=== PATIENT | female | born 1945 | race Two or more races ===

== ENCOUNTER → 2022-08-17 11:12 | Outpatient (BNVA) | payer OTHER, SELFPAY | PROVIDERS: PCP Student in an Organized Health Care Education/Training Program; Visit Provider Nurse Practitioner Family | DX: H91.90 Unspecified hearing loss, unspecified ear (principal); H93.19 Tinnitus, unspecified ear; R51.9 Headache, unspecified; Z86.79 Personal history of other diseases of the circulatory system | CPT/HCPCS: 99212 ==

== ENCOUNTER 2022-08-19 09:29 | Outpatient (REF) | payer OTHER, SELFPAY ==
[2022-08-19 11:16] LABS: Anion Gap 14 (12-20); Blood Urea Nitrogen 27 mg/dL (9-16); Calcium 9.7 mg/dL (8.4-10.2); Carbon Dioxide 25 mmol/L (22-29); Chloride 107 mmol/L (96-108); Estimated Glomerular Filt Rate 40; Glucose Random 149 mg/dL (60-115); Potassium 5.2 mmol/L (3.3-5.1); Sodium 141 mmol/L (135-145)
== END 2022-08-19 09:30 | disposition home or self-care (01) ==
LOC: HO.LAB 09:29
PROVIDERS: PCP Student in an Organized Health Care Education/Training Program; Visit Provider Nurse Practitioner Family
DX: I10 Essential (primary) hypertension (principal)
CPT/HCPCS: 36415; 80048

== ENCOUNTER 2022-10-11 13:42 | Outpatient (REF) | payer OTHER, SELFPAY ==
--- NOTE | ~2022-10-11 | MR_ITS ---
EXAMINATION: MR BRAIN WITHOUT AND WITH CONTRAST CLINICAL INFORMATION: Hearing loss and tinnitus. COMPARISON: None available. TECHNIQUE: Multiplanar, multisequential imaging was obtained without and with intravenous contrast. Intravenous contrast: Gadavist 7 mL. FINDINGS: Bifrontal encephalomalacia and volume loss again visible with chronic sulcal siderosis along the frontal convexities. Mild bifrontal leptomeningeal enhancement noted which may be chronic. Moderate generalized parenchymal volume loss again evident with ex vacuo dilatation of the ventricles. No diffusion abnormality is seen. The ventricles are normal in size. No mass effect or midline shift is evident. No extra-axial fluid collections are noted. Scattered mild small vessel ischemic changes are stable. The brainstem and cerebellum are normal. There is no abnormal parenchymal enhancement. The VII and VIII cranial nerve complexes are normal in course and caliber. No signal abnormality is visualized within the inner ear structures on the precontrast axial T1-weighted sequence. Fluid signal is preserved within the cochlea, semicircular canals, and vestibule on the high-resolution axial FIESTA sequence. No cerebellopontine angle lesion is noted. There is no abnormal labyrinthine or intracanalicular enhancement on postcontrast imaging. The craniovertebral junction, marrow signal, and midline structures are normal. The visualized portions of the major intracranial flow-voids at the level of the [place] are preserved. The dural venous sinus flow-voids are maintained. The mastoid air cells are well aerated. There is mucosal thickening along the floor of the left maxillary antrum. MR/MR head/brain wo/w con IMPRESSION: No retrocochlear pathology. 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 Mild overlying bifrontal pachymeningeal enhancement. Otherwise, no acute process.
== END 2022-10-11 13:43 | disposition home or self-care (01) ==
LOC: HO.MRI 13:42
PROVIDERS: PCP Student in an Organized Health Care Education/Training Program; Visit Provider Nurse Practitioner Family
DX: R51.9 Headache, unspecified (principal); H91.90 Unspecified hearing loss, unspecified ear; H93.19 Tinnitus, unspecified ear
CPT/HCPCS: 70553; A9585

== ENCOUNTER 2022-12-19 12:41 | Outpatient (AMB) | payer OTHER, SELFPAY ==
[2022-12-19 12:57] VITALS: BP 122/74; PULSE 81; O2SAT 98; BMI 26.9
--- NOTE | 2022-12-19 12:57 | A.OFFVIS_ITS ---
Intake Vital Signs 12/19/22 12:57 Height 5 ft 3 in Weight 152 lb BMI 26.9 BP 122/74 Blood Pressure Location Rt brachial Position Sitting Pulse 81 Pulse Source Pulse Oximeter Pulse Oximetry (%) 98 Oxygen Delivery Method Room Air Intake Visit Reasons: Follow up on Concussion/Tremors/Cervialgia-Conf Intake Note: Patient presents for follow up concussion. Patient states I'm here for follow up on a fall I had 3 yearsb ago. Allergies naproxen Allergy (Unknown, Verified 12/19/22 13:01) Unknown Penicillins Allergy (Unknown, Verified 12/19/22 13:01) Unknown Medication List - Last Reconciled 12/19/22 by PATY Amaro alirocumab (Praluent Pen) 75 mg subcut Q2W amlodipine 2.5 mg PO DAILY aspirin 1 tab PO DAILY cetirizine 10 mg PO DAILY clopidogrel 75 mg PO DAILY ferrous sulfate (FeroSul) 0 mg PO fluticasone propionate 220 mcg/actuation (Flovent HFA) 0 mcg inhalation hydrochlorothiazide 12.5 mg PO DAILY ipratropium-albuterol 0.5 mg-3 mg(2.5 mg base)/3 mL mL inhalation isosorbide mononitrate ER 60 mg PO DAILY lisinopril 10 mg PO DAILY lorazepam 2 mg PO BID PRN metformin ER 1,000 mg PO BID HPI HPI Comments History of Present Illness Details 77-yr-old female presents for f/u visit. Pt underwent a cardiac stent placement d/t HLD. Pt also notes her last HgA1C was elevated- she is trying to eat less bread and fresh queezed OJ- was drinking 2 8oz glasses per day. She also reports she had a Covid-19 infection 2-3 months ago- states was pretty sick, had fever, severe headache, chest cold s/s. Then 1 week after, she developed a constant binocular horizontal diplopia. She had eye exam. She wore a glasses patch for a month, and was supposed to start wearing prisms. However, a week ago, she woke w/o having any diplopia. She continues to have bothersome headache having a head pressure sensation in the bilateral frontal/temporal/parietal region. Sometimes the right ear/jaw can be sore and warm- more like a toothache but does not have any right lower molars.?The headcahe is a/w photophobia and phonophobia. She had the ENT consult, was told she has right ear hearing loss. 09/2022, MR/MR head/brain wo/w con IMPRESSION: No retrocochlear pathology. 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 Mild overlying bifrontal pachymeningeal enhancement. Otherwise, no acute process. [facility] Medical History (Updated 12/19/22 @ 13:33 by PATY Amaro) LAURA positive Anxiety and depression CAD (coronary artery disease) Carotid stenosis Cervical spinal stenosis CKD (chronic kidney disease) Diabetes Diverticulitis History of COVID-19 HLD (hyperlipidemia) HTN (hypertension) Nephrolithiasis Polyneuropathy Thyroid nodule Tremor Surgical History (Updated 08/17/22 @ 20:28 by PATY Amaro) History of back surgery Status post cardiac catheterization Family History Father HTN (hypertension) Diabetes mellitus Heart disease Mother HTN (hypertension) Diabetes mellitus Kidney disease Social History (Updated 08/17/22 @ 11:29 by Marisela Couch CMA) Alcohol intake: current Alcohol intake frequency: former alcohol drinker Patient Tobacco Use Status: Former Tobacco user Review of Systems Const All systems reviewed & are unremarkable except as noted in HPI and below Physical Exam Vital Signs: Last Vital Signs Pulse 81 12/19/22 12:57 BP 122/74 12/19/22 12:57 Pulse Ox 98 12/19/22 12:57 Oxygen Delivery Method Room Air 12/19/22 12:57 BMI result Body Mass Index 26.9 Const General: cooperative and no acute distress Orientation/consciousness: patient oriented x3 HEENT Head: Yes normocephalic Resp Effort & Inspection: normal respiratory effort and able to speak in complete sentences Neuro General: patient oriented x3, gait normal and CN's II-XI intact bilaterally Cognition (Neuro): normal cognition Motor exam (neuro): 5/5 motor strength present throughout Psych Appearance: grossly normal Mental Status: mental status grossly normal Speech and movement: Normal speech and movement present Affect: normal affect Attitude: cooperative Thought process: Normal thought process present Thought content: Normal thought content present Insight: Good insight present (Psych) Judgement: Good judgement present (Psych) Assessment & Plan Assessment & Plan (1) Migraine without aura: Code(s): G43.009 - Migraine without aura, not intractable, without status migrainosus (2) History of subdural hematoma: Code(s): Z86.79 - Personal history of other diseases of the circulatory system (3) Tinnitus: Code(s): H93.19 - Tinnitus, unspecified ear (4) Hearing loss: Code(s): H91.90 - Unspecified hearing loss, unspecified ear Plan Reviewed brain MRI- no interval changes. Trial Ubrogepant (Ubrelvy) 100mg tab, 1/2 - 1 tab (50-100mg) at onset of headache, may repeat in 2 hours. Max of 2 tabs (200mg) per 24 hours. May adjunct with OTC Tylenol 650mg q 4 hours. Acute headcahe tx contraindications: all triptans d/t CAD and carotid stenosis Diplopia has resolved- monitor. Medications: New ubrogepant (Ubrelvy) take at onset of migraine, may repeat in 2hrs (may take w/ Tylenol) 50 - 100 mg (0.5 - 1 x 100 mg) PO ONCE 30 days PRN 16 tabs 3RF migraine headache riboflavin (vitamin B2) 400 mg PO DAILY 30 days 30 tabs 6RF Coding Level of Care Code Est Pt Level 4 (03138) Diagnoses Migraine without aura G43.009 History of subdural hematoma Z86.79 Tinnitus H93.19 Hearing loss H91.90
== END 2022-12-19 13:53 | disposition home or self-care (01) ==
PROVIDERS: Visit Provider Nurse Practitioner Family
DX: G43.009 Migraine without aura, not intractable, without status migrainosus (principal); Z86.79 Personal history of other diseases of the circulatory system; H93.19 Tinnitus, unspecified ear; H91.90 Unspecified hearing loss, unspecified ear
CPT/HCPCS: 99214

== ENCOUNTER → 2022-12-19 12:41 | Outpatient (BNVA) | payer OTHER, SELFPAY | PROVIDERS: Visit Provider Nurse Practitioner Family | DX: G43.009 Migraine without aura, not intractable, without status migrainosus (principal); H93.19 Tinnitus, unspecified ear; H91.90 Unspecified hearing loss, unspecified ear; Z86.79 Personal history of other diseases of the circulatory system | CPT/HCPCS: 99212 ==

== ENCOUNTER 2023-03-09 13:25 | Outpatient (AMB) | payer OTHER, SELFPAY ==
--- NOTE | 2023-03-09 13:37 | HO.NEPHOV_ITS ---
HPI HPI Comments History of Present Illness Details Laura was seen in the office in consultation for her chronic kidney disease and hypertension. She is currently transferring her care from her previous renal physician. She has history of for diabetes mellitus and h ypertension. She has history of carotid disease. Her blood sugar control is fair. She has not had any epistaxis, photosensitivity, skin rashes, pedal edema, excessive nonsteroidal anti-inflammatory medication intake, hematuria, renal stones, new bone or back pain. She takes metformin. She is tolerating lisinopril. She had been on Trulicity but is concerned about its side effects. She is on amlodipine as well for her blood pressure. She avoids excessive nonsteroidal anti-inflammatory medications. She tries to hydrate herself well. Her serum creatinine had been stable as per the patient. She has no chest pain, shortness of breath, paroxysmal nocturnal dyspnea, orthopnea, history of hypercalcemia or dizziness. She claims to be compliant with her medications. She regularly follows up with her primary care physician. [facility] Medical History (Updated 03/10/23 @ 05:21 by Long Metz MD) HLD (hyperlipidemia) HTN (hypertension) Diverticulitis Anxiety and depression Cervical spinal stenosis Tremor CKD (chronic kidney disease) Thyroid nodule LAURA positive Carotid stenosis History of COVID-19 Nephrolithiasis Polyneuropathy CAD (coronary artery disease) Diabetes Surgical History Status post cardiac catheterization History of back surgery Family History Father HTN (hypertension) Diabetes mellitus Heart disease Mother HTN (hypertension) Diabetes mellitus Kidney disease Social History Alcohol intake: current Alcohol intake frequency: former alcohol drinker Patient Tobacco Use Status: Former Tobacco user Vital Signs 03/09/23 13:38 Height 5 ft 3 in Weight 152 lb 6 oz BMI 27.0 BP 130/60 Blood Pressure Location Lt brachial Position Sitting Pulse 84 Pulse Source Pulse Oximeter Physical Exam Vital Signs: Last Vital Signs Pulse 84 03/09/23 13:38 BP 130/60 03/09/23 13:38 BMI result Body Mass Index 27.0 Const General: comfortable and no acute distress Orientation/consciousness: patient oriented x3 HEENT Head: Yes normocephalic Mouth: Normal oral and palatal mucosa present Eyes EOM: EOMs intact bilaterally Neck Other: Carotid Bruit + Neck: Yes supple Resp Auscultation: clear to auscultation bilaterally Cardio Jugular venous distension: no JVD Rate: regular rate GI Palpation (GI): Soft to palpation Auscultation: normal bowel sounds General: Yes no CVA tenderness Back/Spine/Pelvis Back: no CVA tenderness Skin General skin exam: no rashes or lesions noted Neuro General: patient oriented x3 and moves all extremities Extrem General: Yes no pedal edema Assessment & Plan Assessment & Plan (1) CKD (chronic kidney disease) stage 3, GFR 30-59 ml/min: Code(s): N18.30 - Chronic kidney disease, stage 3 unspecified Qualifiers: Chronic kidney disease stage 3 subtype: stage 3a (GFR 45-59) Qualified Code(s): N18.31 - Chronic kidney disease, stage 3a (2) HTN (hypertension): Code(s): I10 - Essential (primary) hypertension Qualifiers: Hypertension type: renovascular hypertension Qualified Code(s): I15.0 - Renovascular hypertension Plan Laura has longstanding hypertension and diabetes mellitus. Her blood sugar contr ol is fair. She needs to maintain steady weight as well as good exercise. She should be on a SGLT2 inhibitor. I plan to initiate the same at the next visit after reviewing had urine studies and blood work. I will order Doppler of her renal arteries as well after the next office visit. During the initiation of Farxiga I plan to discontinue her amlodipine. She has carotid disease which has been stable. All these have been discussed in detail. She should maintain good hydration and avoid nonsteroidal anti-inflammatory medications if at all possible. I have answered all questions and ordered follow-up lab studies. Time spent during patient encounter, retrieval of data and documentation 61 minutes. Orders: Orders Electrolytes 03/09/23 I10 - Essential (primary) hypertension, N18.30 - Chronic kidney disease, stage 3 unspecified Blood Urea Nitrogen 03/09/23 I10 - Essential (primary) hypertension, N18.30 - Chronic kidney disease, stage 3 unspecified Protein Creatinine Ratio, Ur 03/09/23 I10 - Essential (primary) hypertension, N18.30 - Chronic kidney disease, stage 3 unspecified Creatinine 03/09/23 I10 - Essential (primary) hypertension, N18.30 - Chronic kidney disease, stage 3 unspecified Calcium 03/09/23 I10 - Essential (primary) hypertension, N18.30 - Chronic kidney disease, stage 3 unspecified Complete Blood Count Auto Diff 03/09/23 I10 - Essential (primary) hypertension, N18.30 - Chronic kidney disease, stage 3 unspecified Coding Level of Care Code New Pt Level 4 (94326) Diagnoses Stage 3a chronic kidney disease N18.31 Chronic kidney disease stage 3 subtype: stage 3a (GFR 45-59) Renovascular hypertension I15.0 Hypertension type: renovascular hypertension
[2023-03-09 13:38] VITALS: BP 130/60; PULSE 84; BMI 27.0
== END 2023-03-09 14:27 | disposition home or self-care (01) ==
PROVIDERS: PCP Internal Medicine; Visit Provider Internal Medicine Nephrology
DX: N18.31 Chronic kidney disease, stage 3a (principal); I12.9 Hypertensive chronic kidney disease with stage 1 through stage 4 chronic kidney disease, or unspecified chronic kidney disease
CPT/HCPCS: 99205

== ENCOUNTER → 2023-03-09 13:25 | Outpatient (BNVA) | payer OTHER, SELFPAY | PROVIDERS: PCP Internal Medicine; Visit Provider Internal Medicine Nephrology | DX: I15.0 Renovascular hypertension (principal); N18.31 Chronic kidney disease, stage 3a | CPT/HCPCS: 99202 ==

== ENCOUNTER 2023-06-08 14:41 | Outpatient (AMB) | payer OTHER, SELFPAY ==
--- NOTE | 2023-06-08 14:47 | HO.NEPHOV ---
HPI HPI Comments History of Present Illness Details Laura was seen in the office in follow-up for her chronic kidney disease and hypertension. She has history of for diabetes mellitus and hypertension. She has history of carotid disease. Her blood sugar control is fair. She has not had any epistaxis, photosensitivity, skin rashes, pedal edema, excessive nonsteroidal anti-inflammatory medication intake, hematuria, renal stones, new bone or back pain. She takes metformin. She is tolerating lisinopril. She had been on Trulicity but is concerned about its side effects. She is on amlodipine as well for her blood pressure. She avoids excessive nonsteroidal anti-inflammatory medications. She tries to hydrate herself well. Her serum creatinine had been stable as per the patient. She has no chest pain, shortness of breath, paroxysmal nocturnal dyspnea, orthopnea, history of hypercalcemia or dizziness. She has not had any nephrolithiasis since last office visit. She claims to be compliant with her medications. She regularly follows up with her primary care physician [facility] Medical History (Updated 03/10/23 @ 05:21 by Long Metz MD) HLD (hyperlipidemia) HTN (hypertension) Diverticulitis Anxiety and depression Cervical spinal stenosis Tremor CKD (chronic kidney disease) Thyroid nodule LAURA positive Carotid stenosis History of COVID-19 Nephrolithiasis Polyneuropathy CAD (coronary artery disease) Diabetes Surgical History Status post cardiac catheterization History of back surgery Family History Father HTN (hypertension) Diabetes mellitus Heart disease Mother HTN (hypertension) Diabetes mellitus Kidney disease Social History Alcohol intake: current Alcohol intake frequency: former alcohol drinker Patient Tobacco Use Status: Former Tobacco user Vital Signs 06/08/23 14:48 Weight 155 lb 2 oz BP 130/70 Blood Pressure Location Lt brachial Position Sitting Pulse 65 Pulse Source Pulse Oximeter Pulse Oximetry (%) 97 Oxygen Delivery Method Room Air Physical Exam Const General: comfortable and no acute distress Orientation/consciousness: patient oriented x3 HEENT Head: Yes normocephalic Mouth: Normal oral and palatal mucosa present Eyes EOM: EOMs intact bilaterally Neck Neck: Yes supple Resp Auscultation: clear to auscultation bilaterally Cardio Jugular venous distension: no JVD Rate: regular rate GI Palpation (GI): Soft to palpation Auscultation: normal bowel sounds General: Yes no CVA tenderness Back/Spine/Pelvis Back: no CVA tenderness Skin General skin exam: no rashes or lesions noted Neuro General: patient oriented x3 and moves all extremities Extrem General: Yes no pedal edema Assessment & Plan Assessment & Plan (1) CKD (chronic kidney disease) stage 3, GFR 30-59 ml/min: Code(s): N18.30 - Chronic kidney disease, stage 3 unspecified Qualifiers: Chronic kidney disease stage 3 subtype: stage 3a (GFR 45-59) Qualified Code(s): N18.31 - Chronic kidney disease, stage 3a (2) HTN (hypertension): Code(s): I10 - Essential (primary) hypertension Qualifiers: Hypertension type: renovascular hypertension Qualified Code(s): I15.0 - Renovascular hypertension Plan Laura has longstanding hypertension and diabetes mellitus. Her blood sugar control is fair. She needs to maintain steady weight as well as good exercise. She should be on a SGLT2 inhibitor. She has carotid disease which has been stable. Her last serum creatinine was 1.3. All these have been discussed in detail. She should maintain good hydration and avoid nonsteroidal anti-inflammatory medications if at all possible. I have answered all questions and ordered follow-up lab studies. Orders: Orders Creatinine Today I10 - Essential (primary) hypertension, N18.30 - Chronic kidney disease, stage 3 unspecified Electrolytes Today I10 - Essential (primary) hypertension, N18.30 - Chronic kidney disease, stage 3 unspecified Blood Urea Nitrogen Today I10 - Essential (primary) hypertension, N18.30 - Chronic kidney disease, stage 3 unspecified Protein Creatinine Ratio, Ur Today I10 - Essential (primary) hypertension, N18.30 - Chronic kidney disease, stage 3 unspecified Coding Level of Care Code Est Pt Level 3 (80582) Diagnoses Stage 3a chronic kidney disease N18.31 Chronic kidney disease stage 3 subtype: stage 3a (GFR 45-59) Renovascular hypertension I15.0 Hypertension type: renovascular hypertension Results Reviewed Nephrology Results: Sodium 141 mmol/L (135-145) 08/19/22 Potassium 5.2 mmol/L (3.3-5.1) H 08/19/22 Chloride 107 mmol/L (96-108) 08/19/22 Carbon Dioxide 25 mmol/L (22-29) 08/19/22 BUN 27 mg/dL (9-16) H 08/19/22 Creatinine 1.30 mg/dL (0.5-1.4) 08/19/22 Calcium 9.7 mg/dL (8.4-10.2) 08/19/22
[2023-06-08 14:48] VITALS: BP 130/70; PULSE 65; O2SAT 97
== END 2023-06-08 16:16 | disposition home or self-care (01) ==
LOC: HO.HKAS 14:42
PROVIDERS: PCP Internal Medicine; Visit Provider Internal Medicine Nephrology
DX: N18.31 Chronic kidney disease, stage 3a (principal); I15.0 Renovascular hypertension
CPT/HCPCS: 99213

== ENCOUNTER → 2023-06-08 14:41 | Outpatient (BNVA) | payer OTHER, SELFPAY | PROVIDERS: PCP Internal Medicine; Visit Provider Internal Medicine Nephrology | DX: I15.0 Renovascular hypertension (principal); N18.31 Chronic kidney disease, stage 3a | CPT/HCPCS: 99212 ==

== ENCOUNTER 2023-06-26 14:11 | Outpatient (AMB) | payer OTHER, SELFPAY ==
--- NOTE | 2023-06-26 14:14 | A.OFFVIS_ITS ---
Intake Vital Signs 06/26/23 14:15 Height 5 ft 3 in Weight 153 lb 4 oz BMI 27.1 BP 140/60 H Blood Pressure Location Rt brachial Position Sitting Pulse 78 Pulse Source Pulse Oximeter Pulse Oximetry (%) 98 Oxygen Delivery Method Room Air Intake Visit Reasons: Follow up Concussion/Tremors/Cervialgia-LVM Intake Note: Patient presents for follow up concussion,tremors and cervialgia. Allergies naproxen Allergy (Unknown, Verified 06/26/23 14:18) Unknown Penicillins Allergy (Unknown, Verified 06/26/23 14:18) Unknown Medication List - Last Reconciled 06/26/23 by PATY Amaro alirocumab (Praluent Pen) 75 mg subcut Q2W amlodipine 2.5 mg PO DAILY aspirin 1 tab PO DAILY cetirizine 10 mg PO DAILY cholecalciferol (vitamin D3) 50 mcg PO DAILY dulaglutide (Trulicity) mg subcut ferrous sulfate (FeroSul) 325 mg PO DAILY hydrochlorothiazide 12.5 mg PO DAILY ipratropium-albuterol 0.5 mg-3 mg(2.5 mg base)/3 mL mL inhalation isosorbide mononitrate ER 60 mg PO DAILY lisinopril 10 mg PO DAILY lorazepam 2 mg PO DAILY PRN metformin ER 1,000 mg PO BID riboflavin (vitamin B2) 400 mg PO DAILY 30 days ubrogepant (Ubrelvy) 50 - 100 mg (0.5 - 1 x 100 mg) PO ONCE PRN 30 days HPI HPI Comments History of Present Illness Details 78-yr-old female presents for f/u visit. Pt did have a [facility] ER eval- for HTN, chest pain, and headache. Pt reports that the headache was d/t her HTN. Head CT - showed no acute findings. EKG nonischemic. CXR- No acute abnormality. Troponin 9 and 10. Pt was given an opiod analgesic. Her chest pain and headaches resolved and pt was discharged home. She has also been having epigastric discomfort- she states this started after she was tried on Trulicity, which she did not tolerate. She states she is scheduled for GI work-up. Overall pt states her pressure headaches are better. Ubrelvy can be helpful. Baseline headache characteristics: head pressure sensation in the bilateral frontal/temporal/parietal region. Sometimes the right ear/jaw can be sore and warm- more like a toothache but does not have any right lower molars.?The headache is a/w photophobia and phonophobia. [facility] Medical History (Updated 03/10/23 @ 05:21 by Long Metz MD) HLD (hyperlipidemia) HTN (hypertension) Diverticulitis Anxiety and depression Cervical spinal stenosis Tremor CKD (chronic kidney disease) Thyroid nodule LAURA positive Carotid stenosis History of COVID-19 Nephrolithiasis Polyneuropathy CAD (coronary artery disease) Diabetes Surgical History Status post cardiac catheterization History of back surgery Family History Father HTN (hypertension) Diabetes mellitus Heart disease Mother HTN (hypertension) Diabetes mellitus Kidney disease Social History Alcohol intake: current Alcohol intake frequency: former alcohol drinker Patient Tobacco Use Status: Former Tobacco user Physical Exam Vital Signs: Last Vital Signs Pulse 78 06/26/23 14:15 BP 140/60 H 06/26/23 14:15 Pulse Ox 98 06/26/23 14:15 Oxygen Delivery Method Room Air 06/26/23 14:15 BMI result Body Mass Index 27.1 Const General: cooperative and no acute distress Orientation/consciousness: patient oriented x3 Resp Effort & Inspection: normal respiratory effort and able to speak in complete sentences Neuro General: patient oriented x3 Cranial nerves: Yes CN's II-XII intact bilaterally Cognition (Neuro): normal cognition Psych Appearance: grossly normal Mental Status: mental status grossly normal Speech and movement: Normal speech and movement present Affect: normal affect Attitude: cooperative Assessment & Plan Assessment & Plan (1) Migraine without aura: Code(s): G43.009 - Migraine without aura, not intractable, without status migrainosus Plan Reviewed [facility] ER reports- head CT- no interval changes. BP is mildly elevated today at 140/60- advised to f/u with cardiology/PCP regarding optimizing her BP control. ? Continue Ubrogepant (Ubrelvy) 100mg tab, 1/2 - 1 tab (50-100mg) at onset of headache, may repeat in 2 hours. Max of 2 tabs (200mg) per 24 hours. May adjunct with OTC Tylenol 650mg q 4 hours. Acute headache tx contraindications: all triptans d/t CAD and carotid stenosis, NSAIDs d/t CKD. ? Diplopia has resolved- monitor. f/u in 4 months or sooner prn. Coding Level of Care Code Est Pt Level 3 (58258) Diagnoses Migraine without aura G43.009
[2023-06-26 14:15] VITALS: BP 140/60; PULSE 78; O2SAT 98; BMI 27.1
== END 2023-06-26 15:22 | disposition home or self-care (01) ==
PROVIDERS: PCP Internal Medicine; Visit Provider Nurse Practitioner Family
DX: G43.009 Migraine without aura, not intractable, without status migrainosus (principal)
CPT/HCPCS: 99213

== ENCOUNTER → 2023-06-26 14:11 | Outpatient (BNVA) | payer OTHER, SELFPAY | PROVIDERS: PCP Internal Medicine; Visit Provider Nurse Practitioner Family | DX: G43.009 Migraine without aura, not intractable, without status migrainosus (principal) | CPT/HCPCS: 99212 ==

== ENCOUNTER 2023-09-20 11:13 | Outpatient (REF) | payer OTHER, SELFPAY ==
[2023-09-20 14:47] LABS: MANUAL DIFF FLAG NO
[2023-09-20 15:06] LABS: Anion Gap 12 (12-20); Blood Urea Nitrogen 33 mg/dL (9-16); Calcium 8.9 mg/dL (8.4-10.2); Carbon Dioxide 22 mmol/L (22-29); Chloride 110 mmol/L (96-108); Estimated Glomerular Filt Rate 37; Sodium 139 mmol/L (135-145)
[2023-09-20 15:22] LABS: Basophils Percent Auto 0.7 % (0-2); Eosinophils Absolute Auto 0.2 X10*3/uL (0.0-0.4); Eosinophils Percent Auto 3.7 % (0-4); Hematocrit 32.7 % (37.0-47.0); Hemoglobin 10.4 g/dl (12.0-16.0); Imm Gran Abs Auto 0.02 X10*3/uL (0.00-0.03); Imm Gran Pct Auto 0.3 % (0.0-0.4); Lymphocytes Absolute Auto 1.6 X10*3/uL (1.2-4.9); Lymphocytes Percent Auto 27.1 % (20-40); Mean Corpuscular HGB Conc 31.8 g/dl (31.0-35.0); Mean Corpuscular Hemoglobin 28.3 pg (27.0-33.0); Mean Corpuscular Volume 89.1 fL (80.0-98.0); Mean Platelet Volume 10.3 fL (9.4-12.3); Monocytes Absolute Auto 0.5 X10*3/uL (0.1-1.2); Monocytes Percent Auto 7.8 % (2-11); Neutrophils Absolute Auto 3.6 x10*3/uL (2.0-8.3); Neutrophils Percent Auto 60.4 % (45-73); Platelet Count 262 X10*3/uL (160-400); Red Blood Count 3.67 X10*6/uL (4.20-5.50); White Blood Count 5.9 X10*3/uL (4.8-10.8)
== END 2023-09-20 11:14 | disposition home or self-care (01) ==
LOC: HO.HKASLDS 11:13
PROVIDERS: Visit Provider Internal Medicine Nephrology
DX: I12.9 Hypertensive chronic kidney disease with stage 1 through stage 4 chronic kidney disease, or unspecified chronic kidney disease (principal); N18.30 Chronic kidney disease, stage 3 unspecified
CPT/HCPCS: 36415; 80051; 82310; 82565; 84520; 85025

== ENCOUNTER 2023-09-21 12:35 | Outpatient (REF) | payer OTHER, SELFPAY ==
[2023-09-21 18:37] LABS: Creatinine Urine 105.95 mg/dL; Total Protein Urine Random < 7 mg/dL (<12)
== END 2023-09-21 12:36 | disposition home or self-care (01) ==
LOC: HO.HKASLDS 12:35
PROVIDERS: Visit Provider Internal Medicine Nephrology
DX: I12.9 Hypertensive chronic kidney disease with stage 1 through stage 4 chronic kidney disease, or unspecified chronic kidney disease (principal); N18.30 Chronic kidney disease, stage 3 unspecified
CPT/HCPCS: 82570; 84156

== ENCOUNTER 2023-09-26 13:36 | Outpatient (AMB) | payer OTHER, SELFPAY ==
--- NOTE | 2023-09-26 13:47 | HO.NEPHOV_ITS ---
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 She has history of for diabetes mellitus and hypertension. She has history of carotid disease. Her blood sugar control is fair. She has not had any epistaxis, photosensitivity, skin rashes, pedal edema, excessive nonsteroidal anti-inflammatory medication intake, hematuria, renal stones, new bone or back pain. She takes metformin. She is tolerating lisinopril. She had been on Trulicity but is concerned about its side effects. She is on amlodipine as well for her blood pressure. She avoids excessive nonsteroidal anti- inflammatory medications. She tries to hydrate herself well. Her serum creatinine had been stable . She has no chest pain, shortness of breath, paroxysmal nocturnal dyspnea, orthopnea, history of hypercalcemia or dizziness. She has not had any nephrolithiasis since last office visit. She claims to be compliant with her medications. She regularly follows up with her primary care physician [facility] Medical History (Updated 03/10/23 @ 05:21 by Long Metz MD) HLD (hyperlipidemia) HTN (hypertension) Diverticulitis Anxiety and depression Cervical spinal stenosis Tremor CKD (chronic kidney disease) Thyroid nodule LAURA positive Carotid stenosis History of COVID-19 Nephrolithiasis Polyneuropathy CAD (coronary artery disease) Diabetes Surgical History Status post cardiac catheterization History of back surgery Family History Father HTN (hypertension) Diabetes mellitus Heart disease Mother HTN (hypertension) Diabetes mellitus Kidney disease Social History Alcohol intake: current Alcohol intake frequency: former alcohol drinker Patient Tobacco Use Status: Former Tobacco user Physical Exam Vital Signs: Last Vital Signs Pulse 69 09/26/23 13:50 BP 120/60 09/26/23 13:50 Pulse Ox 97 09/26/23 13:50 Oxygen Delivery Method Room Air 09/26/23 13:50 BMI result Body Mass Index 28.0 Const General: comfortable and no acute distress Orientation/consciousness: patient oriented x3 HEENT Head: Yes normocephalic Mouth: Normal oral and palatal mucosa present Eyes EOM: EOMs intact bilaterally Neck Neck: Yes supple Resp Auscultation: clear to auscultation bilaterally Cardio Jugular venous distension: no JVD Rate: regular rate GI Palpation (GI): Soft to palpation Auscultation: normal bowel sounds General: Yes no CVA tenderness Back/Spine/Pelvis Back: no CVA tenderness Skin General skin exam: no rashes or lesions noted Neuro General: patient oriented x3 and moves all extremities Extrem General: Yes no pedal edema Results Reviewed Nephrology Results: Hgb 10.4 g/dl (12.0-16.0) L 09/20/23 WBC 5.9 X10*3/uL (4.8-10.8) 09/20/23 Plt Count 262 X10*3/uL (160-400) 09/20/23 Sodium 139 mmol/L (135-145) 09/20/23 Potassium 5.0 mmol/L (3.3-5.1) 09/20/23 Chloride 110 mmol/L (96-108) H 09/20/23 Carbon Dioxide 22 mmol/L (22-29) 09/20/23 BUN 33 mg/dL (9-16) H 09/20/23 Creatinine 1.37 mg/dL (0.5-1.4) 09/20/23 Calcium 8.9 mg/dL (8.4-10.2) 09/20/23 Urine Creatinine 105.95 mg/dL 09/21/23 Protein/Creatinin Ratio TNP 09/21/23 Assessment & Plan Assessment & Plan (1) CKD (chronic kidney disease) stage 3, GFR 30-59 ml/min: Code(s): N18.30 - Chronic kidney disease, stage 3 unspecified Category: Medical Qualifiers: Chronic kidney disease stage 3 subtype: stage 3a (GFR 45-59) Qualified Code(s): N18.31 - Chronic kidney disease, stage 3a (2) HTN (hypertension): Code(s): I10 - Essential (primary) hypertension Category: Medical Qualifiers: Hypertension type: renovascular hypertension Qualified Code(s): I15.0 - Renovascular hypertension Plan Laura has longstanding hypertension and diabetes mellitus. Her blood sugar control is fair. She needs to maintain steady weight as well as good exercise. She should be on a SGLT2 inhibitor. She has carotid disease which has been stable. Her last serum creatinine was 1.3. All these have been discussed in detail. She should maintain good hydration and avoid nonsteroidal anti- inflammatory medications if at all possible. I have answered all questions and ordered follow-up lab studies. Orders: Orders Electrolytes Today I15.0 - Renovascular hypertension, N18.31 - Chronic kidney disease, stage 3a Creatinine Today I15.0 - Renovascular hypertension, N18.31 - Chronic kidney disease, stage 3a Blood Urea Nitrogen Today I15.0 - Renovascular hypertension, N18.31 - Chronic kidney disease, stage 3a Coding Level of Care Code Est Pt Level 4 (86122) Diagnoses Stage 3a chronic kidney disease N18.31 Chronic kidney disease stage 3 subtype: stage 3a (GFR 45-59) Renovascular hypertension I15.0 Hypertension type: renovascular hypertension
[2023-09-26 13:50] VITALS: BP 120/60; PULSE 69; O2SAT 97; BMI 28.0
== END 2023-09-26 14:16 | disposition home or self-care (01) ==
PROVIDERS: PCP Internal Medicine; Visit Provider Internal Medicine Nephrology
DX: N18.31 Chronic kidney disease, stage 3a (principal); I15.0 Renovascular hypertension
CPT/HCPCS: 99214

== ENCOUNTER → 2023-09-26 13:36 | Outpatient (BNVA) | payer OTHER, SELFPAY | PROVIDERS: PCP Internal Medicine; Visit Provider Internal Medicine Nephrology | DX: N18.31 Chronic kidney disease, stage 3a (principal); I15.0 Renovascular hypertension | CPT/HCPCS: 99212 ==

== ENCOUNTER 2023-10-24 13:03 | Outpatient (AMB) | payer OTHER, SELFPAY ==
[2023-10-24 13:04] VITALS: BP 142/70; PULSE 68; O2SAT 98; BMI 27.6
--- NOTE | 2023-10-24 13:04 | MHC.OFFVIS ---
Vital Signs 10/24/23 13:04 Height 5 ft 3 in Weight 156 lb BMI 27.6 BP 142/70 H Blood Pressure Location Rt brachial Position Sitting Pulse 68 Pulse Source Pulse Oximeter Pulse Oximetry (%) 98 Oxygen Delivery Method Room Air Intake Visit Reasons: 4 mo f/u-CONF Intake Note: Patient presents for 4 month follow up. Patient still having migraines here and there. Allergies naproxen Allergy (Unknown, Verified 10/24/23 13:11) Unknown Penicillins Allergy (Unknown, Verified 10/24/23 13:11) Unknown HPI Comments Details: 78-yr-old female presents for f/u visit. Pt denies any significant interval medical changes. Pt reports she has a PCP appt next week- pt states she thinks she needs a GI consult, as she has been having upper abdominal discomfort and colitis pain- feels like something is moving there. She had an asthma flare-up last week d/t the weather change and She also has been gaining weight. So, she is trying to reduce bread. She has been having occasional pressure headache- when it comes, it comes. Tylenol helps. She is not using Ubrelvy. She is not having any diplopia- just resolved. Has occasional tremor- not bothersome. Has joint pain- uses biofreeze or salon pas. Baseline headache characteristics: head pressure sensation in the bilateral frontal/temporal/parietal region. Sometimes the right ear/jaw can be sore and warm- more like a toothache but does not have any right lower molars.?The headache is a/w photophobia and phonophobia. [facility] Medical History (Updated 10/24/23 @ 13:44 by PATY Amaro) HLD (hyperlipidemia) HTN (hypertension) Diverticulitis Anxiety and depression Cervical spinal stenosis Tremor CKD (chronic kidney disease) Thyroid nodule LAURA positive Carotid stenosis History of COVID-19 Nephrolithiasis Polyneuropathy CAD (coronary artery disease) Diabetes Surgical History Status post cardiac catheterization History of back surgery Family History Father HTN (hypertension) Diabetes mellitus Heart disease Mother HTN (hypertension) Diabetes mellitus Kidney disease Social History Alcohol intake: current Alcohol intake frequency: former alcohol drinker Patient Tobacco Use Status: Former Tobacco user Physical Exam Vital Signs: Last Vital Signs Pulse 68 10/24/23 13:04 BP 142/70 H 10/24/23 13:04 Pulse Ox 98 10/24/23 13:04 Oxygen Delivery Method Room Air 10/24/23 13:04 BMI result Body Mass Index 27.6 Const General: cooperative and no acute distress Orientation/consciousness: patient oriented x3 Resp Effort & Inspection: normal respiratory effort and able to speak in complete sentences Neuro Other: No tremor BUE- no tone General: patient oriented x3 Cranial nerves: Yes CN's II-XII intact bilaterally Cognition (Neuro): normal cognition Psych Appearance: grossly normal Mental Status: mental status grossly normal Speech and movement: Normal speech and movement present Affect: normal affect Attitude: cooperative Assessment & Plan Assessment & Plan (1) Migraine without aura: Code(s): G43.009 - Migraine without aura, not intractable, without status migrainosus Category: Medical (2) History of subdural hematoma: Code(s): Z86.79 - Personal history of other diseases of the circulatory system Category: Medical (3) Tremor: Code(s): R25.1 - Tremor, unspecified Category: Medical Plan Continue Tylenol prn. Continue Ubrogepant (Ubrelvy) 100mg tab, 1/2 - 1 tab (50-100mg) at onset of headache, may repeat in 2 hours. Max of 2 tabs (200mg) per 24 hours. May adjunct with OTC Tylenol 650mg q 4 hours. Acute headache tx contraindications: all triptans d/t CAD and carotid stenosis, NSAIDs d/t CKD. Tremor- monitor Diplopia has resolved- monitor. ? f/u in 6-9 months or sooner prn. Coding Level of Care Code Est Pt Level 4 (56408) Diagnoses Migraine without aura G43.009 History of subdural hematoma Z86.79 Tremor R25.1
== END 2023-10-24 14:01 | disposition home or self-care (01) ==
PROVIDERS: PCP Internal Medicine; Visit Provider Nurse Practitioner Family
DX: G43.009 Migraine without aura, not intractable, without status migrainosus (principal); Z86.79 Personal history of other diseases of the circulatory system; R25.1 Tremor, unspecified
CPT/HCPCS: 99214

== ENCOUNTER → 2023-10-24 13:03 | Outpatient (BNVA) | payer OTHER, SELFPAY | PROVIDERS: PCP Internal Medicine; Visit Provider Nurse Practitioner Family | DX: G43.009 Migraine without aura, not intractable, without status migrainosus (principal); R25.1 Tremor, unspecified; Z86.79 Personal history of other diseases of the circulatory system | CPT/HCPCS: 99212 ==

== ENCOUNTER 2024-01-30 13:25 | Outpatient (AMB) | payer OTHER, SELFPAY ==
--- NOTE | 2024-01-30 13:33 | HO.NEPHOV_ITS ---
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 She has history of for diabetes mellitus and hypertension. She has history of carotid disease. Her blood sugar control is fair. She has not had any epistaxis, photosensitivity, skin rashes, pedal edema, excessive nonsteroidal anti-inflammatory medication intake, hematuria, renal stones, new b one or back pain. She takes metformin. She is tolerating lisinopril. She had been on Trulicity but is concerned about its side effects. She is on amlodipine as well for her blood pressure. She avoids excessive nonsteroidal anti- inflammatory medications. She tries to hydrate herself well. Her serum creatinine had been stable . She has no chest pain, shortness of breath, paroxysmal nocturnal dyspnea, orthopnea, history of hypercalcemia or dizziness. She has not had any nephrolithiasis since last office visit. She claims to be compliant with her medications. [facility] Medical History (Updated 10/24/23 @ 13:44 by PATY Amaro) HLD (hyperlipidemia) HTN (hypertension) Diverticulitis Anxiety and depression Cervical spinal stenosis Tremor CKD (chronic kidney disease) Thyroid nodule LAURA positive Carotid stenosis History of COVID-19 Nephrolithiasis Polyneuropathy CAD (coronary artery disease) Diabetes Surgical History Status post cardiac catheterization History of back surgery Family History Father HTN (hypertension) Diabetes mellitus Heart disease Mother HTN (hypertension) Diabetes mellitus Kidney disease Social History Alcohol intake: current Alcohol intake frequency: former alcohol drinker Patient Tobacco Use Status: Former Tobacco user Review of Systems Const All systems reviewed & are unremarkable except as noted in HPI and below Physical Exam Vital Signs: Last Vital Signs Pulse 65 01/30/24 13:34 BP 122/52 L 01/30/24 13:34 Pulse Ox 97 01/30/24 13:34 Oxygen Delivery Method Room Air 01/30/24 13:34 BMI result Body Mass Index 27.3 Const General: comfortable and no acute distress Orientation/consciousness: patient oriented x3 HEENT Head: Yes normocephalic Mouth: Normal oral and palatal mucosa present Eyes EOM: EOMs intact bilaterally Neck Neck: Yes supple Resp Auscultation: clear to auscultation bilaterally Cardio Jugular venous distension: no JVD Rate: regular rate GI Palpation (GI): Soft to palpation Auscultation: normal bowel sounds General: Yes no CVA tenderness Back/Spine/Pelvis Back: no CVA tenderness Skin General skin exam: no rashes or lesions noted Neuro General: patient oriented x3 and moves all extremities Extrem General: Yes no pedal edema Results Reviewed Nephrology Results: Hgb 10.4 g/dl (12.0-16.0) L 09/20/23 WBC 5.9 X10*3/uL (4.8-10.8) 09/20/23 Plt Count 262 X10*3/uL (160-400) 09/20/23 Sodium 139 mmol/L (135-145) 09/20/23 Potassium 5.0 mmol/L (3.3-5.1) 09/20/23 Chloride 110 mmol/L (96-108) H 09/20/23 Carbon Dioxide 22 mmol/L (22-29) 09/20/23 BUN 33 mg/dL (9-16) H 09/20/23 Creatinine 1.37 mg/dL (0.5-1.4) 09/20/23 Calcium 8.9 mg/dL (8.4-10.2) 09/20/23 Urine Creatinine 105.95 mg/dL 09/21/23 Protein/Creatinin Ratio TNP 09/21/23 Assessment & Plan Assessment & Plan (1) CKD (chronic kidney disease) stage 3, GFR 30-59 ml/min: Code(s): N18.30 - Chronic kidney disease, stage 3 unspecified Category: Medical Qualifiers: Chronic kidney disease stage 3 subtype: stage 3a (GFR 45-59) Qualified Code(s): N18.31 - Chronic kidney disease, stage 3a (2) HTN (hypertension): Code(s): I10 - Essential (primary) hypertension Category: Medical Qualifiers: Hypertension type: renovascular hypertension Qualified Code(s): I15.0 - Renovascular hypertension Plan Laura has longstanding hypertension and diabetes mellitus. Her blood sugar control is fair. She needs to maintain steady weight as well as good exercise. She should be on a SGLT2 inhibitor. She has carotid disease which has been stable. Her last serum creatinine was 1.37 which had gone up to 1.6. I held her HCTZ. She should maintain good hydration and avoid nonsteroidal anti- inflammatory medications if at all possible. I have answered all questions and ordered follow-up lab studies Orders: Orders Electrolytes Today I15.0 - Renovascular hypertension, N18.31 - Chronic kidney disease, stage 3a Calcium Today I15.0 - Renovascular hypertension, N18.31 - Chronic kidney disease, stage 3a Blood Urea Nitrogen Today I15.0 - Renovascular hypertension, N18.31 - Chronic kidney disease, stage 3a Creatinine Today I15.0 - Renovascular hypertension, N18.31 - Chronic kidney disease, stage 3a Creatinine 3 Months I15.0 - Renovascular hypertension, N18.31 - Chronic kidney disease, stage 3a Phosphorus Today I15.0 - Renovascular hypertension, N18.31 - Chronic kidney disease, stage 3a Blood Urea Nitrogen 3 Months I15.0 - Renovascular hypertension, N18.31 - Chronic kidney disease, stage 3a Electrolytes 3 Months I15.0 - Renovascular hypertension, N18.31 - Chronic kidney disease, stage 3a Coding Level of Care Code Est Pt Level 4 (57656) Diagnoses Stage 3a chronic kidney disease N18.31 Chronic kidney disease stage 3 subtype: stage 3a (GFR 45-59) Renovascular hypertension I15.0 Hypertension type: renovascular hypertension
[2024-01-30 13:34] VITALS: BP 122/52; PULSE 65; O2SAT 97; BMI 27.3
== END 2024-01-30 14:06 | disposition home or self-care (01) ==
PROVIDERS: PCP Internal Medicine; Visit Provider Internal Medicine Nephrology
DX: I12.9 Hypertensive chronic kidney disease with stage 1 through stage 4 chronic kidney disease, or unspecified chronic kidney disease (principal); E11.22 Type 2 diabetes mellitus with diabetic chronic kidney disease; N18.31 Chronic kidney disease, stage 3a
CPT/HCPCS: 99214

== ENCOUNTER → 2024-01-30 13:25 | Outpatient (BNVA) | payer OTHER, SELFPAY | PROVIDERS: PCP Internal Medicine; Visit Provider Internal Medicine Nephrology | DX: I15.0 Renovascular hypertension (principal); E11.22 Type 2 diabetes mellitus with diabetic chronic kidney disease; N18.31 Chronic kidney disease, stage 3a | CPT/HCPCS: 99212 ==

== ENCOUNTER 2024-04-30 13:27 | Outpatient (AMB) | payer OTHER, SELFPAY ==
--- NOTE | 2024-04-30 13:43 | HO.NEPHOV_ITS ---
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 She has history of for diabetes mellitus and hypertension. She has history of carotid disease. Her blood sugar control is fair. She has not had any epistaxis, photosensitivity, skin rashes, pedal edema, excessive nonsteroidal anti-inflammatory medication intake, hematuria, renal stones, new bone or back pain. She takes metformin. She is tolerating lisinopril. She had been on Trulicity but is concerned about its side effects. She is on amlodipine as well for her blood pressure. She avoids excessive nonsteroidal anti- inflammatory medications. She tries to hydrate herself well. Her serum creatinine had been stable . She has no chest pain, shortness of breath, paroxysmal nocturnal dyspnea, orthopnea, history of hypercalcemia or dizziness. She has not had any nephrolithiasis since last office visit. She claims to be compliant with her medications. [facility] Medical History (Updated 10/24/23 @ 13:44 by PATY Amaro) HLD (hyperlipidemia) HTN (hypertension) Diverticulitis Anxiety and depression Cervical spinal stenosis Tremor CKD (chronic kidney disease) Thyroid nodule LAURA positive Carotid stenosis History of COVID-19 Nephrolithiasis Polyneuropathy CAD (coronary artery disease) Diabetes Surgical History Status post cardiac catheterization History of back surgery Family History Father HTN (hypertension) Diabetes mellitus Heart disease Mother HTN (hypertension) Diabetes mellitus Kidney disease Social History Alcohol intake: current Alcohol intake frequency: former alcohol drinker Patient Tobacco Use Status: Former Tobacco user Review of Systems Const All systems reviewed & are unremarkable except as noted in HPI and below Physical Exam Const General: comfortable and no acute distress Orientation/consciousness: patient oriented x3 HEENT Head: Yes normocephalic Mouth: Normal oral and palatal mucosa present Eyes EOM: EOMs intact bilaterally Neck Neck: Yes supple Resp Auscultation: clear to auscultation bilaterally Cardio Jugular venous distension: no JVD Rate: regular rate GI Palpation (GI): Soft to palpation Auscultation: normal bowel sounds General: Yes no CVA tenderness Back/Spine/Pelvis Back: no CVA tenderness Skin General skin exam: no rashes or lesions noted Neuro General: patient oriented x3 and moves all extremities Extrem General: Yes no pedal edema Results Reviewed Nephrology Results: Hgb 10.4 g/dl (12.0-16.0) L 09/20/23 WBC 5.9 X10*3/uL (4.8-10.8) 09/20/23 Plt Count 262 X10*3/uL (160-400) 09/20/23 Sodium 139 mmol/L (135-145) 09/20/23 Potassium 5.0 mmol/L (3.3-5.1) 09/20/23 Chloride 110 mmol/L (96-108) H 09/20/23 Carbon Dioxide 22 mmol/L (22-29) 09/20/23 BUN 33 mg/dL (9-16) H 09/20/23 Creatinine 1.37 mg/dL (0.5-1.4) 09/20/23 Calcium 8.9 mg/dL (8.4-10.2) 09/20/23 Urine Creatinine 105.95 mg/dL 09/21/23 Protein/Creatinin Ratio TNP 09/21/23 Assessment & Plan Assessment & Plan (1) CKD (chronic kidney disease) stage 3, GFR 30-59 ml/min: Code(s): N18.30 - Chronic kidney disease, stage 3 unspecified Category: Medical Qualifiers: Chronic kidney disease stage 3 subtype: stage 3a (GFR 45-59) Qualified Code(s): N18.31 - Chronic kidney disease, stage 3a (2) HTN (hypertension): Code(s): I10 - Essential (primary) hypertension Category: Medical Qualifiers: Hypertension type: renovascular hypertension Qualified Code(s): I15.0 - Renovascular hypertension Plan Laura has longstanding hypertension and diabetes mellitus. Her blood sugar control is fair. She needs to maintain steady weight as well as good exercise. She should be on a SGLT2 inhibitor. She has carotid disease which has been stable. I held her HCTZ at the last visit. She should maintain good hydration and avoid nonsteroidal anti-inflammatory medications if at all possible. I have answered all questions. Orders: Orders Hemoglobin A1c Today I15.0 - Renovascular hypertension, N18.31 - Chronic kidney disease, stage 3a Blood Urea Nitrogen Today I15.0 - Renovascular hypertension, N18.31 - Chronic kidney disease, stage 3a Blood Urea Nitrogen 3 Months I15.0 - Renovascular hypertension, N18.31 - Chronic kidney disease, stage 3a Electrolytes 3 Months I15.0 - Renovascular hypertension, N18.31 - Chronic kidney disease, stage 3a Creatinine Today I15.0 - Renovascular hypertension, N18.31 - Chronic kidney disease, stage 3a Electrolytes Today I15.0 - Renovascular hypertension, N18.31 - Chronic kidney disease, stage 3a Creatinine 3 Months I15.0 - Renovascular hypertension, N18.31 - Chronic kidney disease, stage 3a Coding Level of Care Code Est Pt Level 4 (26795) Diagnoses Stage 3a chronic kidney disease N18.31 Chronic kidney disease stage 3 subtype: stage 3a (GFR 45-59) Renovascular hypertension I15.0 Hypertension type: renovascular hypertension
[2024-04-30 13:47] VITALS: BP 130/54; PULSE 71; O2SAT 97; BMI 27.5
== END 2024-04-30 14:23 | disposition home or self-care (01) ==
LOC: HO.HKAS 13:27
PROVIDERS: PCP Internal Medicine; Visit Provider Internal Medicine Nephrology
DX: I12.9 Hypertensive chronic kidney disease with stage 1 through stage 4 chronic kidney disease, or unspecified chronic kidney disease (principal); E11.22 Type 2 diabetes mellitus with diabetic chronic kidney disease; N18.31 Chronic kidney disease, stage 3a
CPT/HCPCS: 99214

== ENCOUNTER 2024-04-30 13:27 | Outpatient (REF) | payer OTHER, SELFPAY ==
[2024-04-30 18:23] LABS: Estimated Average Glucose 192 mg/dL; Hemoglobin A1C 192.0197 umol/L; Hemoglobin A1c % 8.3 % (<6.0); Total Hemoglobin (HGBA1C) 2869.6347 umol/L
[2024-04-30 18:27] LABS: Anion Gap 12 (12-20); Blood Urea Nitrogen 33 mg/dL (9-16); Carbon Dioxide 22 mmol/L (22-29); Chloride 112 mmol/L (96-108); Estimated Glomerular Filt Rate 39; Potassium 5.4 mmol/L (3.3-5.1); Sodium 141 mmol/L (135-145)
== END 2024-04-30 13:28 | disposition home or self-care (01) ==
LOC: HO.HKASLDS 13:27
PROVIDERS: PCP Internal Medicine; Visit Provider Internal Medicine Nephrology
DX: I15.0 Renovascular hypertension (principal); N18.31 Chronic kidney disease, stage 3a
CPT/HCPCS: 36415; 80051; 82565; 83036; 84520; 99212

== ENCOUNTER 2024-05-21 14:47 | Outpatient (AMB) | payer OTHER, SELFPAY ==
[2024-05-21 14:48] VITALS: BP 120/62; PULSE 74; O2SAT 97; BMI 26.6
--- NOTE | 2024-05-21 14:48 | A.OFFVIS_ITS ---
Vital Signs 05/21/24 14:48 Height 5 ft 3 in Weight 150 lb BMI 26.6 BP 120/62 Blood Pressure Location Rt brachial Position Sitting Pulse 74 Pulse Source Pulse Oximeter Pulse Oximetry (%) 97 Oxygen Delivery Method Room Air Intake Visit Reasons: 6 mnt Follow Up Allergies naproxen Allergy (Unknown, Verified 05/21/24 14:51) Unknown Penicillins Allergy (Unknown, Verified 05/21/24 14:51) Unknown Medication List - Last Reconciled 05/21/24 by PATY Amaro alirocumab (Praluent Pen) 75 mg subcut Q2W amlodipine 2.5 mg PO DAILY aspirin 1 tab PO DAILY cetirizine 10 mg PO DAILY cholecalciferol (vitamin D3) 50 mcg PO DAILY dulaglutide (Trulicity) mg subcut empagliflozin (Jardiance) 10 mg PO DAILY ferrous sulfate (FeroSul) 325 mg PO DAILY ipratropium-albuterol 0.5 mg-3 mg(2.5 mg base)/3 mL mL inhalation isosorbide mononitrate ER 60 mg PO DAILY lisinopril 10 mg PO DAILY lorazepam 2 mg PO DAILY PRN metformin ER 1,000 mg PO BID riboflavin (vitamin B2) 400 mg PO DAILY 30 days ubrogepant (Ubrelvy) 50 - 100 mg (0.5 - 1 x 100 mg) PO ONCE PRN 30 days HPI Comments Details: 79-yr-old female presents for f/u visit of migraine. Pt had called the office a few weeks ago, reporting increased fatigue and asking if she could restart vitamin B12 injection- advised her to have labs done, but she has not had these done yet. She had a colonoscopy approx [address] [facility]- as she was having some rectal bleeding. States oral iron has caused constipation. Pt states her headaches have become more frequent- almost daily- in the past 3 months. Her PCP ordered a brain MRI- which pt states was normal. She did not retry the Ubrelvy- as she is worried about taking too many medications. She is compliant w/ Riboflavin. She is not taking anything else for migraine prevention. Baseline headache characteristics: head pressure sensation in the bilateral frontal/temporal/parietal region. Sometimes the right ear/jaw can be sore and warm- more like a toothache but does not have any right lower molars.?The headache is a/w photophobia and phonophobia. Pt reports she is trying to take enough fluids. She is trying to eat better overall. CKD has been stable. Her recent HgA1C was 8.3%- nephrology started her on jardiance. She is not having any diplopia. Has occasional BUE tremor- not bothersome. Has arthritic joint pain- is using OTC biofreeze. [facility] Medical History HLD (hyperlipidemia) HTN (hypertension) Diverticulitis Anxiety and depression Cervical spinal stenosis Tremor CKD (chronic kidney disease) Thyroid nodule LAURA positive Carotid stenosis History of COVID-19 Nephrolithiasis Polyneuropathy CAD (coronary artery disease) Diabetes Surgical History Status post cardiac catheterization History of back surgery Family History Father HTN (hypertension) Diabetes mellitus Heart disease Mother HTN (hypertension) Diabetes mellitus Kidney disease Social History Alcohol intake: current Alcohol intake frequency: former alcohol drinker Patient Tobacco Use Status: Former Tobacco user Physical Exam Vital Signs: Last Vital Signs Pulse 74 05/21/24 14:48 BP 120/62 05/21/24 14:48 Pulse Ox 97 05/21/24 14:48 Oxygen Delivery Method Room Air 05/21/24 14:48 BMI result Body Mass Index 26.6 Const General: cooperative and no acute distress Orientation/consciousness: patient oriented x3 Resp Effort & Inspection: normal respiratory effort and able to speak in complete sentences Neuro Other: No tremor General: patient oriented x3 Cranial nerves: Yes CN's II-XII intact bilaterally Cognition (Neuro): normal cognition Psych Appearance: grossly normal Mental Status: mental status grossly normal Speech and movement: Normal speech and movement present Affect: normal affect Attitude: cooperative Assessment & Plan Assessment & Plan (1) Migraine without aura: Code(s): G43.009 - Migraine without aura, not intractable, without status migrainosus Category: Medical (2) Anemia: Code(s): D64.9 - Anemia, unspecified Category: Medical (3) History of subdural hematoma: Code(s): Z86.79 - Personal history of other diseases of the circulatory system Category: Medical (4) Tremor: Code(s): R25.1 - Tremor, unspecified Category: Medical Plan We will request recent head imaging from [place]. For fatigue: Fasting labs as ordered. Continue strategies to optimize diabetic control, patient may benefit from diabetic/card hanger consult/ Future considerations: Sleep study For acute migraine treatment: Continue Tylenol 650-1000 mg every 4-6 hours prn. Resume Ubrogepant (Ubrelvy) 100mg tab, 1/2 - 1 tab (50-100mg) at onset of headache, may repeat in 2 hours. Max of 2 tabs (200mg) per 24 hours. May adjunct with OTC Tylenol 650-1000 mg every 4-6 hours prn. Acute headache tx contraindications: all triptans d/t CAD and carotid stenosis, NSAIDs d/t CKD. For migraine prevention Tx: Continue riboflavin 400 mg q.a.m. Start magnesium oxide 400 mg q.h.s. Continue lisinopril- ordered for HTN may help as a migraine preventative as well Tremor- monitor Diplopia has resolved- monitor. ? f/u in 6-9 months or sooner prn. Orders: Orders Folate Today D64.9 - Anemia, unspecified Medications: New magnesium oxide may hold for loose stools 400 mg PO BEDTIME 30 days 30 tabs 6RF Refilled ubrogepant (Ubrelvy) take at onset of migraine, may repeat in 2hrs (may take w/ Tylenol) 50 - 100 mg (0.5 - 1 x 100 mg) PO ONCE 30 days PRN 16 tabs 6RF migraine headache riboflavin (vitamin B2) 400 mg PO DAILY 30 days 30 tabs 6RF Coding Level of Care Code Est Pt Level 4 (85630) Diagnoses Migraine without aura G43.009 Anemia D64.9 History of subdural hematoma Z86.79 Tremor R25.1
--- OUTSIDE RECORDS SUMMARY | 2024-05-21 15:44 | XMS_ITS | Encounter Summary ---
Author Organization [facility]ly [facility] Address [address] [place] [address] Care Team Providers Care Interventional Nurse Name Role Phone Phil Rodriguez MD Primary Care Provider Unavail able Ashley Rosado APRN Primary Care Provider Unav ailable Triston Bailey MD Unavailable [phone] Remedios Warren PA Unavailable Unavailable Umang Corado CITY CONTROLLER Unavailable [phone] Johana Lizarraga MD Primary Care Provider Chanda Soria CITY CONTROLLER Unavailable Susie Starr DO Primary Care Provider Johana Lizarraga MD Primary Care Provider Susie Starr DO Primary Care Provider Phil Rodriguez MD Primary Care Provider Unavail able Susie Starr DO Primary Care Provider [phone] Loreto Albert MD Unavailable [phone] Lizbeth Schilling APRN Primary Care Provider [phone] Susie Starr DO Primary Care Provider [phone] Encounter Details Date Type Department Care Team Description 04/20/2017 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 Never 04/13/2023 How many drinks containing a lcohol do you have on a typical day when you are drinking? Not asked How often do you have six or more drinks on one occasion? Never 04/13/2023 Social Isolation Answer Date Recorded In a typical week, how many times do you talk on the phone with family, friends, or neighbors? More than three times a week 04/13/2023 How often do you get togethe r with friends or relatives? More than three times a week 04/13/2023 How [facility] you attend [facility] or faith services? More than 4 times per year 04/13/2023 Do you belong to any clubs o r organizations such as islam groups, unions, fraternal or athletic groups, or school groups? No 07/08/2021 How often do you attend meet ings of the clubs or organizations you belong to? Never 04/13/2023 Are you now , , , , never or living with a partner? 07/08/2021 Physical Activity Answer Date Recorded On average, how many days pe r week do you engage in moderate to strenuous exercise (like walking fast, running, jogging, dancing, swimming, biking, or other activities that cause a light or heavy sweat)? 3 days 04/13/2023 On average, how many minutes do you engage in exercise at this level? 30 min 04/13/2023 Stress Answer Date Recorded Do you feel stress - tense, restless, nervous, or anxious, or unable to sleep at night because your mind is troubled all the time - these days? Only a little 04/13/2023 Financial Resource Strain Answer Date R ecorded How hard is it for you to pa y for the very basics like food, housing, medical care, and heating? Not hard at all 04/13/2023 Intimate Partner Violence Answer Date R ecorded Within the last year, have y ou been afraid of your partner or ex-partner? No 04/13/2023 Within the last year, have y ou been humiliated or emotionally abused in other ways by your partner or ex-partner? No Within the last year, have y ou been kicked, hit, slapped, or otherwise physically hurt by your partner or ex-partner? No 04/13/2023 Within the last year, have y ou been raped or forced to have any kind of sexual activity by your partner or ex-partner? No 04/13/2023 Food Insecurity Answer Date Recorded Within the past 12 months, y ou worried that your food would run out before you got money to buy more. Never true 04/13/2023 Within the past 12 months, t he food you bought just didn't last and you didn't have money to get more. Never true 04/13/2023 Transportation Needs Answer Date Record ed In the past 12 months, has l ack of transportation kept you from medical appointments or from getting medications? No 03/25 In the past 12 months, has l ack of transportation kept you from meetings, work, or getting things needed for daily living? No 04/13/2023 Housing Stability Answer Date Recorded In the last 12 months, was t here a time when you were not able to pay the mortgage or rent on time? No 04/13/2023 In the last 12 months, how many places have you lived? 1 04/13/2023 In the last 12 months, was t here a time when you did not have a steady place to sleep or slept in a senior living (including now)? No 04/13/2023 Sex Assigned at Date Recorded Not on file Job Start Date Occupation Industry Not on file Not on file Not on file documented as of this encounter Plan of Treatment Not on file documented as of this encounter Visit Diagnoses Not on filedocumented in this encounter Care Teams Interventional Nurse Relationship Specialty Start Date End Date Phil Rodriguez MD PCP - General Internal Medicine 12/15/14 09/19/19 Ashley Rosado APRN PCP - General Internal Medicine 09/20/19 06/27/22 Johana Lizarraga MD [address] [place] [address] Dr [place], [place] [address] PCP - General Internal Medicine 06/28/22 11/30/22 Susie Starr, DO [address] [place] [address] PCP - General Internal Medicine 12/01/22 12/01/22 Johana Lizarraga MD [address] [place] [address] [place] [address] PCP - General Internal Medicine 12/02/22 12/29/22 [facility] [address] [place] [address] PCP - General Internal Medicine 12/30/22 12/30/22 Phil Rodriguez MD PCP - General Internal Medicine 01/04/23 01/10/[address] [address] PCP - General Internal Medicine 01/11/23 02/01/24 Lizbeth Schilling, SEAT COVER MAKER [address] [place] [address] PCP - General Internal Medicine 02/02/24 02/11/[address] [address] PCP - General Internal Medicine 02/12/24 Triston Bailey MD [address] [place] [address] [place] [address] Bariatric Physician Cardiovascular Disease 06/10/20 Remedios Warren PA [address] [facility] [place] [address] Cardiology 12/08/21 Umang Corado NP [address] [place] [address] [place] [address] Specialist Cardiology 02/23/22 Chanda Soria NP [address] [place] [address] [place] [address] Cardiology 08/11/22 Loreto Albert MD [address] [place] [address] Internal Medicine 04/13/23 documented as of this encounter
--- OUTSIDE RECORDS SUMMARY | 2024-05-21 15:44 | XMS_ITS | Encounter Summary ---
Author Organization [facility] Address [address] [place] [address] Care Team Providers Care Technical Applications Scientist Name Role Phone Phil Rodriguez MD Primary Care Provider Unavail able Ashley Rosado APRN Primary Care Provider Unav ailable Triston Bailey MD Unavailable [phone] Remedios Warren PA Unavailable Unavailable Umang Corado PRESS CLIPPER Unavailable Johana Lizarraga MD Primary Care Provider Chanda Soria PRESS CLIPPER Unavailable Susie Starr DO Primary Care Provider Johana Lizarraga MD Primary Care Provider Susie Starr DO Primary Care Provider Phil Rodriguez MD Primary Care Provider Unavail able Susie Starr DO Primary Care Provider [phone] Loreto Albert MD Unavailable [phone] Lizbeth Schilling APRN Primary Care Provider [phone] Susie Starr DO Primary Care Provider [phone] Encounter Details Date Type Department Care Team Description 02/11/2015 Dairy Powder Mixer Operator 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 More than 4 times per year 04/13/2023 Do you belong to any clubs o r organizations such as mandaeism groups, unions, fraternal or athletic groups, or [...] place to sleep or slept in a chcf (including now)? No 04/13/2023 Sex Assigned at Date Recorded Not on file Job Start Date Occupation Industry Not on file Not on file Not on file documented as of this encounter Plan of Treatment Not on file documented as of this encounter Visit Diagnoses Not on filedocumented in this encounter Care Teams Technical Applications Scientist Relationship Specialty Start Date End Date Phil Rodriguez MD PCP - General Internal Medicine 12/15/14 09/19/19 Ashley Rosado APRN PCP - General Internal Medicine 09/20/19 06/27/22 Johana Lizarraga MD [address] [place] [address] Dr [place]on, [place] [address] PCP - General Internal Medicine 06/28/22 11/30/22 Susie Starr, DO [address] [place] [address] PCP - General Internal Medicine 12/01/22 12/01/22 Johana Lizarraga MD [address] [place] [address] [place] [address] PCP - General Internal Medicine 12/02/22 12/29/22 [facility] [address] [place] [address] PCP - General Internal Medicine 12/30/22 12/30/22 Phil Rodriguez MD PCP - General Internal Medicine 01/04/23 01/10/[address] [address] PCP - General Internal Medicine 01/11/23 02/01/24 Lizbeth Schilling, SAND SLINGER [address] [place] [address] PCP - General Internal Medicine 02/02/24 02/11/[address] [address] PCP - General Internal Medicine 02/12/24 Triston Bailey MD [address] [place] [address] [place] [address] Heater Tender Cardiovascular Disease 06/10/20 Remedios Warren PA [address] [facility] [place] [address] Cardiology 12/08/21 Umang Corado NP [address] [place] [address] [place] [address] Specialist Cardiology 02/23/22 Chanda Soria NP [address] [place] [address] [place] [address] Cardiology 08/11/22 Loreto Albert MD [address] [place] [address] Internal Medicine 04/13/23 documented as of this encounter
--- OUTSIDE RECORDS SUMMARY | 2024-05-21 15:44 | XMS_ITS | Encounter Summary ---
Author Organization [facility] Address [address] [place] [address] Care Team Providers Care Laser/Electro Optics Technician Name Role Phone Phil Rodriguez MD Primary Care Provider Unavail able Tony Rodriguez MD Primary Care Provider Unavail able Phil Rodriguez MD Primary Care Provider Unavail able Ashley Rosado APRN Primary Care Provider Unav ailable Triston Bailey MD Unavailable Remedios Warren Unavailable Unavailable Umang Corado EMS MANAGER Unavailable [phone] Johana Lizarraga MD Primary Care Provider Chanda Soria NP Unavailable Susie Starr DO Primary Care Provider [phone] Johana Lizarraga MD Primary Care Provider Susie Starr DO Primary Care Provider [phone] Phil Rodriguez MD Primary Care Provider Unavail able Susie Starr DO Primary Care Provider [phone] Loreto Albert MD Unavailable [phone] Lizbeth Schilling APRN Primary Care Provider Susie Starr DO Primary Care Provider [phone] Encounter Details Date Type Department Care Team Description 11/12/2014 Knot Bumper Report Medical Records [address] [place] [address] Triston Allred MD, MD Social History Tobacco Use Types Packs/Day [...] week 04/13/2023 How often do you attend [facility] or baptist services? More than 4 times per year 04/13/2023 Do you belong to any clubs o r organizations such as voodoo groups, unions, fraternal or athletic groups, or [...] on filedocumented in this encounter Care Teams Laser/Electro Optics Technician Relationship Specialty Start Date End Date Phil Rodriguez MD PCP - General 03/07/05 12/04/14 Tony Rodriguez MD PCP - General Internal Medicine 12/05/14 12/14/14 Phil Rodriguez MD PCP - General Internal Medicine 12/15/14 09/19/19 Ashley Rosado APRN PCP - General Internal Medicine 09/20/19 06/27/22 Johana Lizarraga MD [address] [place] [address] [place] [address] PCP - General Internal Medicine 06/28/22 11/30/22 [facility], [address] [facility] [place] [address] PCP - General Internal Medicine 12/01/22 12/01/22 Johana Lizarraga MD [address] [place] [address] [place] [address] PCP - General Internal Medicine 12/02/22 12/29/22 [facility] [address] [facility] [place] [address] PCP - General Internal Medicine 12/30/22 12/30/22 Phil Rodriguez MD PCP - General Internal Medicine 01/04/23 01/10/23 [facility], [address] [facility] [place] [address] PCP - General Internal Medicine 01/11/23 02/01/24 Lizbeth Schilling APRN [address] [place] [address] PCP - General Internal Medicine 02/02/24 02/11/24 [facility], [address] [facility] [place] [address] PCP - General Internal Medicine 02/12/24 Triston Bailey MD [address] [place] [address] [place] [address] Business Planning Director Cardiovascular Disease 06/10/20 Remedios Warren PA [address] [facility] [place] [address] Cardiology 12/08/21 Umang Corado NP [address] [place] [address] [place] [address] Specialist Cardiology 02/23/22 Chanda Soria NP [address] [place] [address] Breann Hui [address] [place] [address] Cardiology 08/11/22 Loreto Albert MD [address] [place] [address] Internal Medicine 04/13/23 documented as of this encounter
--- OUTSIDE RECORDS SUMMARY | 2024-05-21 15:44 | XMS_ITS | Clinical Summary ---
Author Organization 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 3 Active FREESTYLE LANCETS MISC USE TO TEST BLOOD SUGAR TWICE DAILY 9 Active blood-glucose meter kit To use to test blood sugar 1 Active incontinence pad, liner, disp pad Disposable Incontinence liners Use up to 8 times daily for Incontinence Indefinite Use Dx: R32 ,E11.49, E11.29 , N18.30, G62.9, R26.81 4 Active ipratropium-albu teroL (DUONEB) 0.5-2.5 mg/3 mL nebulizer solution USE 3 ML VIA NEBULIZER FOUR TIMES DAILY NEEDED FOR COUGH OR WHEEZING OR SHORTNESS OF BREATH 3 Active isosorbide mononitrate (IMDUR) 30 mg 24 hr tablet TAKE 2 TABLETS BY MOUTH DAILY 4 Active denosumab (Prolia) 60 mg/mL syringe syringe INJECT 1 SYRINGE (60MG) UNDER THE SKIN EVERY 6 MONTHS 4 Active alirocumab (Praluent Pen) 75 mg/mL pen injector INJECT 75 MG INTO THE SKIN EVERY 14 DAYS 4 Active fluticasone-salm eterol (Wixela Inhub) 250-50 mcg/dose diskus inhalerIndicatio ns:Moderate persistent asthma, unspecified whether complicated Inhale 1 puff by mouth 2 (two) times a day. Rinse mouth with water after use to reduce aftertaste and incidence of candidiasis. Do not swallow. 1 each 12 4 03/12/20 25 Active metFORMIN XR (GLUCOPHAGE-XR) 500 mg 24 hr tablet TAKE 1 TABLET BY MOUTH TWICE DAILY 180 tablet 1 4 Active amLODIPine (NORVASC) 2.5 mg tablet TAKE 1 TABLET BY MOUTH DAILY 90 tablet 1 4 Active albuterol HFA (Ventolin HFA) 90 mcg/actuation inhalerIndicatio ns:Mild intermittent asthma without complication Inhale 2 puffs by mouth every 6 (six) hours if needed for wheezing. 1 each 4 03/26/20 25 Active meclizine (ANTIVERT) 12.5 mg tabletIndication s:Dizziness Take 1 tablet (12.5 mg total) by mouth 3 (three) times a day if needed for dizziness. 30 tablet 4 06/25/19 25 Active ezetimibe (ZETIA) 10 mg tablet TAKE 1 TABLET BY MOUTH DAILY 90 tablet 3 4 Active hydroCHLOROthiaz chelsey 12.5 mg tablet TAKE 1 TABLET BY MOUTH DAILY 90 tablet 1 4 Active lisinopriL (PRINIVIL,ZESTRI L) 10 mg tablet Take 1 tablet (10 mg total) by mouth 1 (one) time each day. 90 tablet 1 5 Active LORazepam (ATIVAN) 2 mg tablet Take 1 tablet (2 mg total) by mouth 1 (one) time each day if needed for anxiety for up to 28 days. Max Daily Amount: 2 mg 28 tablet 5 05/30/19 25 Active blood sugar diagnostic (FreeStyle Lite Strips) test strip USE DIRECTED TO TEST BLOOD SUGAR TWICE DAILY BEFORE A MEAL 200 strip 5 Active cetirizine (ZyrTEC) 10 mg tablet TAKE 1 TABLET BY MOUTH DAILY NEEDED FOR ALLERGIES 90 tablet 1 5 Active calcium carbonate 1,500 mg (600 mg elemental calcium) tablet TAKE 1 TABLET BY MOUTH TWICE DAILY WITH MEALS 180 tablet 1 5 Active aspirin 81 mg chewable tablet CHEW AND SWALLOW 1 TABLET BY MOUTH EVERY DAY 90 tablet 3 5 Active blood sugar diagnostic (FreeStyle Lite Strips) test strip USE DIRECTED TO TEST BLOOD SUGAR TWICE DAILY BEFORE A MEAL 4 05/14/19 25 Discontinued aspirin 81 mg chewable tablet Chew 1 tablet (81 mg total) 1 (one) time each day. 4 05/15/19 25 Discontinued calcium carbonate 1,500 mg (600 mg elemental calcium) tablet Take 600 mg by mouth. 4 05/15/19 25 Discontinued LORazepam (ATIVAN) 2 mg tablet Take 1 tablet (2 mg total) by mouth 1 (one) time each day if needed for anxiety for up to 28 days. Max Daily Amount: 2 mg 28 tablet 4 05/02/19 25 Discontinued(Re order) lisinopriL (PRINIVIL,ZESTRI L) 10 mg tablet TAKE 1 TABLET BY MOUTH DAILY 90 tablet 1 4 04/29/19 25 Discontinued(Re order) cetirizine (ZyrTEC) 10 mg tablet take 1 tablet by mouth daily as needed for allergies 4 05/15/19 25 Discontinued(Du plicate order) Active Problems Problem Noted Date Diagnosed Date MR (mitral regurgitation) 07/12/2023 Overview (01/18/2024): Last Assessment & Plan: The patient underwent an echocardiogram July 2020 which showed normal LV function and mild mitral regurgitation. We will update a new echocardiogram to reevaluate for progression of her valvular disease. Headache 07/10/2023 Chronic pain of both knees 01/11/2023 Primary osteoarthritis of both knees 01/11/2023 Urinary incontinence 01/11/2023 Kidney lesion, paimiut, right 05/20/2022 Chronic rhinitis 06/10/2021 Overview (01/18/2024): Last Assessment & Plan: Flonase has been prescribed. CAD (coronary artery disease) 03/23/2021 Overview (01/18/2024): Last Assessment & Plan: Patient has a history of coronary artery disease status post drug-eluting stent placement to the LAD in October 2021. She continues on aspirin, Praluent isosorbide mononitrate, and Zetia as prescribed. She denies any further episodes of chest discomfort since her hospitalization and since she has discontinued the injectable medication for diabetes. She did undergo recent PET stress test June 2022 which showed no areas of ischemia or infarction. She denies any exertional symptoms. At this point, we will continue current therapies. Patient advised to seek emergency medical attention by calling 911 if they were to develop severe dyspnea, chest pain that did not resolve with rest or nitroglycerin, or if they were to faint. Polyneuropathy 07/02/2020 Osteoporosis 02/13/2019 Carotid stenosis 01/16/2018 Overview (01/18/2024): Asymptomatic: 50 - 69% bilaterally 12/2017 Last Assessment & Plan: The patient has a history of carotid artery stenosis with last carotid duplex showing less than 50% stenosis in bilateral ICA. She continues on medical therapy with aspirin, Zetia, and Praluent. She denies any cardiac symptoms today. LAURA positive 04/26/2017 Iron deficiency anemia 01/09/2017 Overview (01/18/2024): 2017: CN, EGD, Pillcam all wnl. 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 No need for follow-up. Patient does not qualify for lung cancer screening program. CKD (chronic kidney disease) stage 3, GFR 30-59 ml/min 03/17/2015 Overview (01/18/2024): Dr Reyes Tremor 01/20/2011 Spinal stenosis in cervical region 05/25/2010 Radiculitis, cervical 05/17/2010 Overview (01/18/2024): S/p C6-C7 anterior discectomy and fusion 07/2010 Dr Keith Radiculitis, lumbosacral 05/17/2010 Overview (01/18/2024): L4-5 spinal stenosis, has been seen by Dr Keith 2010, surgery deferred at that time Anxiety and depression 01/22/2009 HTN (hypertension) 03/06/2006 Overview (01/18/2024): Last Assessment & Plan: Patient's blood pressure is well-controlled today. We will continue her current antihypertensive medication regimen as prescribed. She will continue to monitor her blood pressures at home and we reviewed parameters. Hyperlipidemia 04/14/2005 Overview (01/18/2024): Last Assessment & Plan: Patient has a history of hyperlipidemia as well as a history of coronary artery disease. Her last LDL cholesterol was noted to be 56. Her goal is less than 70 given her history. We will continue her current therapy on Praluent and Zetia as prescribed. She also notes that she was not fasting for this lipid panel as her triglycerides were elevated. She continues to work on her diet and has cut out fatty and sweet foods. Mild persistent asthma 04/14/2005 Overview (01/18/2024): Last Assessment & Plan: Patient has chronic asthma since more than 30 years ago which has been under control with the use of Flovent 220 mcg 1 puff twice a day. She rarely has wheezing and uses albuterol. She should continue with the current medications. She does not have specific triggers. DM (diabetes mellitus), type 2 with renal compli cations 04/14/2005 Encounters Date Type Department Care Team Description 05/07/2024 1:00 PM EST Office Visit Gastroenterology - [place] [address] [place] [address] Tresa Douglas NP Left upper quadrant abdominal pain (Primary Dx) 04/26/2024 2:03 PM EST - 04/26/2024 11:59 PM EST Hospital Encounter CT Scan - [address] [phone] Other migraine without status migrainosus, not intractable Discharge Disposition: Home or Self Care 04/01/2024 Telephone Internal Medicine - [address] [phone] Lisa Starrmana, Cough 03/26/2024 9:30 AM EST Office Visit Internal Medicine - [address] [phone] Lizbeth Schilling NP Dizziness (Primary Dx); Other migraine without status migrainosus, not intractable; Urinary incontinence, unspecified type; Type 2 diabetes mellitus with chronic kidney disease, without long-term current use of insulin, unspecified CKD stage ([facility]/HCC); Iron deficiency anemia, unspecified iron deficiency anemia type; Primary hypertension; Anxiety and depression; Mild intermittent asthma without complication 03/12/2024 1:30 PM EST Procedure visit [facility] [address] [phone] QuirozMg Dyspnea, unspecified type 03/12/2024 1:30 PM EST Consult [address]mon[address] [phone] Denia Mcdonnell MD Moderate persistent asthma, unspecified whether complicated (Primary Dx); Lung nodules; Ex-smoker; Mild intermittent asthma without complication 03/06/2024 1:00 PM EST Office Visit Internal Medicine - [address] [phone] Lizbeth Schilling NP Other migraine without status migrainosus, not intractable (Primary Dx); Urinary incontinence, unspecified type; Primary osteoarthritis of both knees; Type 2 diabetes mellitus with chronic kidney disease, without long-term current use of insulin, unspecified CKD stage ([facility]/HCC); Mixed hyperlipidemia; Primary hypertension; Iron deficiency anemia, unspecified iron deficiency anemia type; Anxiety and depression; Mild intermittent asthma without complication; Encounter for vitamin deficiency screening 02/26/2024 11:27 AM EST Anesthesia Event [facility] [address] [place] [phone] Isaías Barclay MD 02/26/2024 8:57 AM EST - 02/26/2024 11:59 PM EST Hospital Encounter [facility] [address] [place] [address] Shlomo Cast DO Chang, Daniel J, MD Diverticulitis of colon (without mention of hemorrhage)(562.11) Discharge Disposition: Home or Self Care from Last 3 Months Immunizations Name Administration Dates Next Due Hepatitis B ([id number]-[id number] , Recombivax HB-Adult) 19yo and older 02/24/2009 Influenza trivalent, 0.5mL ( Fluzone High-dose) 65yo and older 02/11/2022,01/04/2021,02/27/2020,03/14,01/11/2018,01/09/2017 Influenza trivalent, with pr eservative (Fluzone; Afluria) 6mo and older 02/25/2015,02/26/2014,01/23/2013,02/02,01/20/2011,12/29/2009,12/29/2008 ,03/06/2008,02/27/2007,02/13/2006 Moderna SARS-CoV-2 COVID-19, mRNA, LNP-S, preservative free 09/12/2020,08/15/2020 PPD Test 02/03/2012 Pneumococcal conjugate 13 va lent (Prevnar 13, PCV13) 2mo and older 01/09/2017 Pneumococcal polysaccharide 23 valent (Pneumovax 23) 2yo and older 02/03/2012 Td Tetanus diptheria (Tdvax) 7yo and older 06/19/2020 Tdap Tetanus diptheria acell ular pertussis (Boostrix; Adacel) 7yo and older 07/16/2010 Surgical History Surgery Date Site/Laterality Comments BACK SURGERY 2011 PROCEDURE: HISTORICAL BACK SURGERY; COMMENT: cervical fusion COLONOSCOPY 06/12/2008 PROCEDURE: HISTORICAL COLONOSCOPY; COMMENT: negative COLONOSCOPY 12/12/2016 PROCEDURE: HISTORICAL COLONOSCOPY; COMMENT: Diverticulosis; otherwise negative examination. UPPER GASTROINTESTINAL ENDOSCOPY 12/12/2016 PROCEDURE: IN UPPER GI ENDOSCOPY PERFORMED; COMMENT: Visually normal; duodenal biopsies: normal. OTHER SURGICAL HISTORY 01/04/2017 PROCEDURE: OUTSIDE ENDOSCOPY; COMMENT: [facility]; intestinal pillcam normal. Medical History Medical History Date Comments Essential hypertension, benign 03/06/2006 D X:Essential hypertension, benign Herpes zoster DX:Herpes zoster Type 2 diabetes mellitus wit h renal manifestations ([facility]/HCC) 04/14/2005 DX:Type 2 diabetes mellitus with renal manifestations ([facility]) Tremor 01/20/2011 DX:Tremor Spinal stenosis in cervical region 05/25/2010 DX:Spinal stenosis in cervical region Radiculitis, lumbosacral 05/17/2010 DX:Radi culitis, lumbosacral; COMMENT: L4-5 spinal stenosis, has been seen by Dr Keith 2010, surgery deferred at that time Radiculitis, cervical 05/17/2010 DX:Radicul itis, cervical; COMMENT: S/p C6-C7 anterior discectomy and fusion 07/2010 Dr Keith Hyperlipidemia 04/14/2005 DX:Hyperlipidemi a Diverticulitis of colon with out hemorrhage 03/06/2006 DX:Diverticulitis of colon w ithout hemorrhage CKD (chronic kidney disease) stage 3, GFR 30-59 ml/min (CMS/HCC) 03/17/2015 DX:CKD (chronic kidney dise ase) stage 3, GFR 30-59 ml/min ([facility]) Unspecified asthma(493.90) 04/14/2005 DX:Un specified asthma(493.90) Anxiety and depression 01/22/2009 DX:Anxiet y and depression Diverticulitis large intestine 03/06/2006 D X:Diverticulitis large intestine; COMMENT: As of 2018; approx 4 uncomplicated attacks. DM (diabetes mellitus), type 2 with neurological complications (CMS/HCC) 10/07/2016 DX:DM (diabetes m ellitus), type 2 with neurological complications (HCC) Polyneuropathy 07/02/2020 DX:Polyneuropath y DM (diabetes mellitus), type 2 with renal complications (CMS/HCC) 04/14/2005 DX:DM (diabetes mellitus ), type 2 with renal complications (HCC) History of subdural hematoma (post traumatic) 07/02/2020 DX:History of subdural hemat lisa (post traumatic); COMMENT: Fell 2018, no Surgical intervention needed History of nephrolithiasis 07/02/2020 DX:Hi story of nephrolithiasis Dyspnea 06/10/2020 DX:Dyspnea Family History Medical History Relation Name Comments Diabetes Brother 21 kids Diabetes Daughter x5 Hypertension Daughter x5 Diabetes Father Colon cancer Maternal Grandmother Diabetes Mother Diabetes Sister Heart attack Sister Breast cancer Neg Hx Ovarian cancer Neg Hx Relation Name Status Comments Brother 21 kids Daughter x5 Alive Father Maternal Grandmother Mother Sister Social History Tobacco Use Types Packs/Day Years Used Date Smoking Tobacco: Former Cigarettes Q uit: 04/24/1989 Smokeless Tobacco: Never Tobacco Cessation:Counseling Given: Not Answered Alcohol Use Standard Drinks/Week Comments Never 0 (1 standard drink = 0.6 oz pur e alcohol) Sex and Gender Information Value Date Recorded Sex Assigned at Female 02/21/2024 10:31 AM EDT Gender Identity Female 02/21/2024 10:31 AM EDT Sexual Orientation Not on file Job Start Date Occupation Industry Not on file Not on file Not on file Obstetrics History Last Filed Vital Signs Vital Sign Reading Time Taken Comments Blood Pressure 118/75 05/07/2024 12:56 PM EST Pulse 87 05/07/2024 12:56 PM EST Temperature 37 ??C (98.6 ??F) 03/26/2024 9:30 AM EST Respiratory Rate 19 03/12/2024 1:15 PM EST Oxygen Saturation 98% 05/07/2024 12:56 PM EST Inhaled Oxygen Concentration - - Weight 66.7 kg (147 lb) 05/07/2024 12:56 PM EST Height 157.5 cm (5' 2 ) 05/07/2024 12:56 PM EST Body Mass Index 26.89 05/07/2024 12:56 PM EST Plan of Treatment Upcoming Encounters Date Type Department Care Team (Late st Contact Info) Description 05/23/2024 1:00 PM EST Office Visit Endocrinology [address] [phone] Mervat Cruz MD [address] [place] [phone] 07/25/2024 1:00 PM EDT Office Visit Internal Medicine - [address] [phone] Susie Starr DO [address] [place] [address] 09/12/2024 11:30 AM EDT Office Visit Pulmonolgy - [place] [address] [facility] [address] [place] [address] Denia Mcdonnell MD [address] [facility] [address] [place] [address] Health Maintenance Due Date Last Done Comments Zoster Vaccines (1 of 2) 1997 Hepatitis B Vaccines (2 of 3 - 19+ 3-dose series) 03/24/2009 02/24/2009 COVID-19 Vaccine (3 - Moderna risk series) 10/10/2020 09/12/2020, 08/15/2020 RSV Immunization Patients 60+ Years Old (1 - 1-dose 75+ series) 2022 Depression Screening 04/02/2022 Falls Risk Assessment 04/02/2022 Medicare Annual Wellness Visit 04/02/2022 Social Influencers of Health Screening 04/02/2022 Diabetes: Annual Urine Albumin-Creatinine Ratio (uACR) 10/12/2022 10/12/2021 Diabetes: Annual Foot Exam 02/11/2023 02/11/2022 Diabetes: Blood Sugar Control Test (HGBA1C) 05/01/2024 10/30/2023, 10/30/2023, 07/21/2020 Diabetes: Annual GFR (Glomerular Filtration Rate) 10/29/2024 10/30/2023 Hypertension/CHF/CAD Annual BMP Blood Test 10/29/2024 10/30/2023 Diabetes: Annual Retina Eye Exam 04/02/2025 04/02/2024, 10/30/2023 Cholesterol Screening (Lipid Panel) 01/12/2028 01/11/2023 DTaP,Tdap,and Td Vaccines (4 - Td or Tdap) 06/19/2030 06/19/2020, 01/10/2019, 07/16/2010 Osteoporosis Screening (Bone Density Screening) 12/22/2032 12/22/2022, 10/15/2020, 02/13/2019, Additional history exists Hepatitis C Screening Completed 12/18/2014 Pneumococcal Vaccine: 65+ Years Completed 01/09/2017, 02/03/2012 Influenza Vaccine Discontinued 02/11/2022, , 02/27/2020, Additional history exists Colorectal Cancer Screening: Colonoscopy Discontinued 02/26/2024 HIB Vaccines Aged Out No longer eligi ble based on patient's age to complete this topic HPV Vaccines Aged Out No longer eligi ble based on patient's age to complete this topic Hepatitis A Vaccines Aged Out No long er eligible based on patient's age to complete this topic IPV Vaccines Aged Out No longer eligi ble based on patient's age to complete this topic MMR Vaccines Aged Out No longer eligi ble based on patient's age to complete this topic Meningococcal ACWY Vaccine Aged Out N o longer eligible based on patient's age to complete this topic RSV Immunization Patients Under 20 months Aged Out No longer eligible based on patient's age to complete this topic Varicella Vaccines Aged Out No longer eligible based on patient's age to complete this topic Procedures Procedure Name Priority Date/Time Associated Diagnosis Comments CT HEAD WO CONTRAST Routine 04/26/2024 2 :27 PM EST Other migraine without status migrainosus, not intractable EXTERNAL DIABETIC RETINA EYE EXAM 04/02/2024 CBC WITH AUTO DIFFERENTIAL Routine 03/06/2024 1:36 PM EST Iron deficiency anemia, unspecified iron deficiency anemia type VITAMIN B12 Routine 03/06/2024 1:36 PM EST Encounter for vitamin deficiency screening CBC AND DIFFERENTIAL Routine 03/06/2024 1:36 PM EST Iron deficiency anemia, unspecified iron deficiency anemia type COLONOSCOPY Routine 02/26/2024 11:47 AM EST Diverticulitis of colon (without mention of hemorrhage)(562.11) TISSUE EXAM Routine 02/26/2024 11:42 AM EST Diverticulitis of colon (without mention of hemorrhage)(562.11) ANNUAL BMP BLOOD TEST Routine 10/30/2023 HEMOGLOBIN A1C Routine 10/30/2023 LIPID PANEL Routine 01/11/2023 DXA BONE DENSITY STUDY 1+ SITS AXIAL SKEL Routine 12/22/2022 2:34 PM EDT Age-related osteoporosis without current pathological fracture DIABETES FOOT EXAM Routine 02/11/2022 URINE ALBUMIN CREATININE RATIO Routine 10/12/2021 HEPATITIS C SCREENING Routine 12/18/2014 from Last 3 Months or Most Recently Relevant to Health Maintenance Results * CT Head wo Contrast (04/26/2024 2:27 PM EST) Anatomical Region Laterality Modality Head and Neck Computed Tomogra phy 04/26/2024 2:36 PM EST Narrative 04/26/2024 2:[address] without intravenous contrast. History headaches. Comparison with prior studies, latest from 06/14/2022. There is no evidence of midline shift, extra or intra-axial blood fluid collections. There is no evidence of masses or mass effect in the brain and cerebellum. Again noted are areas of encephalomalacia in the inferior aspect of the frontal lobes more prominent on the right, unchanged. There are arm small areas of periventricular hypodensities most likely from chronic small vessel ischemia. It is unchanged. Ventricular system is stable in appearance. Fourth ventricle and basal cisterns are midline and patent. Visualized bony structures appear to be unremarkable. There are calcifications in the cavernous portions of the internal carotid arteries. Visualized portions of the paranasal sinuses are unremarkable. CONCLUSIONS: Stable chronic changes. No acute intracranial abnormalities. -------- FINAL REPORT -------- Dictated By: Allison Shelley Dictated Date: 04/26/2024 14:36 ET Assigned Physician: Allison Shelley Reviewed and Electronically Signed By: Allison Shelley Signed Date: 04/26/2024 14:41 ET Workstation ID: [id number] Transcribed By: Self Edit Transcribed Date: 04/26/2024 14:36 ET Procedure Note Allison Shelley MD - 04/26/[address] without intravenous contrast. History headaches. Comparison with prior studies, latest from 06/14/2022. There is no evidence of midline shift, extra or intra-axial blood fluidcollections. There is no evidence of masses or mass effect in the brainand cerebellum. Again noted are areas of encephalomalacia in the inferioraspect of the frontal lobes more prominent on the right, unchanged. Thereare arm small areas of periventricular hypodensities most likely fromchronic small vessel ischemia. It is unchanged. Ventricular system isstable in appearance. Fourth ventricle and basal cisterns are midline andpatent. Visualized bony structures appear to be unremarkable. There arecalcifications in the cavernous portions of the internal carotid arteries.Visualized portions of the paranasal sinuses are unremarkable. CONCLUSIONS: Stable chronic changes. No acute intracranialabnormalities. -------- FINAL REPORT -------- Dictated By: Allison Shelley Dictated Date: 04/26/2024 14:36 ET Assigned Physician: Allison Shelley Reviewed and Electronically Signed By: Allison Shelley Signed Date: 04/26/2024 14:41 ET Workstation ID: [id number] Transcribed By: Self Edit Transcribed Date: 04/26/2024 14:36 ET Lizbeth Schilling NP IMG CT PROCEDURES * External Diabetic Retina Eye Exam Report (04/02/2024) Anatomical Region Laterality Modality Ultrasound Provider [facility] IMG US PROCEDURE S * (ABNORMAL) CBC auto differential (03/06/2024 1:36 PM EST) WBC 6.6 4.8 - 10.8 K/mcL LAB HEMETOLOGY METHOD 03/06/2024 4:36 PM EST [facility] RBC 3.80 3.80 - 4.80 M/mcL LAB HEMETOLOGY METHOD 03/06/2024 4:36 PM EST [facility] Hemoglobin 10.5(L) 11.5 - 16.0 g/dL LAB HEMETOLOGY METHOD 03/06/2024 4:36 PM EST [facility] Hematocrit 34.1(L) 35.0 - 47.0 % LAB HEMETOLOGY METHOD 03/06/2024 4:36 PM [facility] MCV 88.8 79.0 - 98.0 FL LAB HEMETOLOGY METHOD 03/06/2024 4:36 PM [facility] MCH 27.3 27.0 - 32.0 pcg LAB HEMETOLOGY METHOD 03/06/2024 4:36 PM [facility] MCHC 30.8(L) 32.0 - 37.0 g/dL LAB HEMETOLOGY METHOD 03/06/2024 4:36 PM [facility] RDW 13.6 11.0 - 15.0 % LAB HEMETOLOGY METHOD 03/06/2024 4:36 PM [facility] Platelets 263 130 - 400 K/mcL LAB HEMETOLOGY METHOD 03/06/2024 4:36 PM [facility] MPV 10.4 7.0 - 11.0 FL LAB HEMETOLOGY METHOD 03/06/2024 4:36 PM [facility] NRBC 0.0 <1.0 % LAB HEMETOLOGY METHOD 03/06/2024 4:36 PM [facility] NRBC Absolute 0.00 <0.10 K/mcL LAB HEMETOLOGY METHOD 03/06/2024 4:36 PM [facility] Neutrophils Relative 52.9 % LAB HEMETOLOGY METHOD 03/06/2024 4:36 PM [facility] Lymphocytes Relative 34.4 % LAB HEMETOLOGY METHOD 03/06/2024 4:36 PM [facility] Monocytes Relative 8.1 % LAB HEMETOLOGY METHOD 03/06/2024 4:36 PM [facility] Eosinophils Relative 3.8 % LAB HEMETOLOGY METHOD 03/06/2024 4:36 PM [facility] Basophils Relative 0.6 % LAB HEMETOLOGY METHOD 03/06/2024 4:36 PM EST [facility] Immature Granulocytes Relative 0.2 % LAB HEMETOLOGY METHOD 03/06/2024 4:36 PM [facility] Neutrophils Absolute 3.51 1.50 - 7.00 K/mcL LAB HEMETOLOGY METHOD 03/06/2024 4:36 PM EST [facility] Lymphocytes Absolute 2.28 1.00 - 5.00 K/mcL LAB HEMETOLOGY METHOD 03/06/2024 4:36 PM [facility] Monocytes Absolute 0.54 0.20 - 1.00 K/mcL LAB HEMETOLOGY METHOD 03/06/2024 4:36 PM [facility] Eosinophils Absolute 0.25 0.00 - 0.50 K/mcL LAB HEMETOLOGY METHOD 03/06/2024 4:36 PM EST [facility] Basophils Absolute 0.04 0.00 - 0.20 K/mcL LAB HEMETOLOGY METHOD 03/06/2024 4:36 PM [facility] Immature Granulocytes Absolute 0.01 0.00 - 0.03 K/mcL LAB HEMETOLOGY METHOD 03/06/2024 4:36 PM EST [facility] Blood Venous blood specimen / Unknown Venipuncture / Unknown 03/06/2024 1:36 PM EST 03/06/2024 1:36 PM EST Lizbeth Schilling NP LAB BLOOD ORDERABLES [facility] [address] [place] [address], * Vitamin B12 (03/06/2024 1:36 PM EST) Vitamin B-12 341 250 - 900 pcg/mL LAB CHEMISTRY METHOD 03/06/2024 5:55 PM EST [facility] Blood Venous blood specimen / Unknown Venipuncture / Unknown 03/06/2024 1:36 PM EST 03/06/2024 1:36 PM EST Lizbeth Schilling PARKING METER INSTALLER LAB BLOOD ORDERABLES RAPHAEL SHEARER MA ([facility]) [facility] [address] [place] [address], * COLONOSCOPY Anesthesia - MAC; [facility] ENDOSCOPY (02/26/2024 11:47 AM EST) Anatomical Region Laterality Modality Endoscopy 02/26/2024 11:1 8 AM EST Narrative 02/26/2024 11:[address] [facility] Patient Name: Laura Bernabe ? Procedure Date: 02/26/2024 11:18 AM ? Date of : 1945 ?Age: 79 Room: ROOM 16 ? Gender: Female Note Status: Finalized ?Attending MD: Shlomo Cast DO, [id number] Procedure Date No Time: 02/26/2024 ? Procedure: ? Colonoscopy Indications: ? Screening for colorectal malignant neoplasm Providers: ? Shlomo Cast, DO Referring MD: ?Shlomo Cast, DO Medicines: ? Monitored Anesthesia Care Complications: ? No immediate complications. Estimated blood loss: ? Minimal. Estimated Blood Loss: ? Estimated blood loss was minimal. Procedure: ? Pre-Anesthesia Assessment: ? - - Prior to the procedure, a History and Physical was ? performed, and patient medications and allergies were ? reviewed. The patient is competent. The risks and ? benefits of the procedure and the sedation options and ? risks were discussed with the patient. All questions ? were answered and informed consent was obtained. ? Patient identification and proposed procedure were ? verified by the physician, the nurse, the ? anesthesiologist, the horn player and the technician support association ? in the pre-procedure area in the endoscopy suite. ? Mental Status Examination: alert and oriented. Airway ? Examination: normal oropharyngeal airway and neck ? mobility. Respiratory Examination: clear to ? auscultation. CV Examination: normal. Prophylactic ? Antibiotics: The patient does not require prophylactic ? antibiotics. Prior Anticoagulants: The patient has ? taken no anticoagulant or antiplatelet agents. ASA ? Grade Assessment: II - A patient with severe systemic ? disease. After reviewing the risks and benefits, the ? patient was deemed in satisfactory condition to ? undergo the procedure. The anesthesia plan was to use ? monitored anesthesia care (MAC). Immediately prior to ? administration of medications, the patient was ? re-assessed for adequacy to receive sedatives. The ? heart rate, respiratory rate, oxygen saturations, ? blood pressure, adequacy of pulmonary ventilation, and ? response to care were monitored throughout the ? procedure. The physical status of the patient was ? re-assessed after the procedure. ? After I obtained informed consent, the scope was ? passed under direct vision. Throughout the procedure, ? the patient's blood pressure, pulse, and oxygen ? saturations were monitored continuously. The ? Colonoscope was introduced through the anus and ? advanced to the cecum, identified by appendiceal ? orifice and ileocecal valve. The colonoscopy was ? performed without difficulty. The patient tolerated ? the procedure well. The quality of the bowel ? preparation was good. Findings: ?Hemorrhoids were found on perianal exam. ? A few small-mouthed diverticula were found in the ? sigmoid colon and descending colon. There was no ? evidence of diverticular bleeding. ? An 8 mm polyp was found in the sigmoid colon. The ? polyp was sessile. The polyp was removed with a cold ? snare. Resection and retrieval were complete. ? Estimated blood loss was minimal. ? The exam was otherwise without abnormality on direct ? and retroflexion views. Impression: ?- Hemorrhoids found on perianal exam. ? - One 8 mm polyp in the sigmoid colon, removed with a ? cold snare. Resected and retrieved. ? - The examination was otherwise normal on direct and ? retroflexion views. Recommendation: ?- - Discharge patient to home. ? - High fiber diet. ? - Continue present medications. ? - Await pathology results. ? - Repeat colonoscopy for surveillance based on ? pathology results. Procedure Code(s): ? --- Professional --- ? 81970, Colonoscopy, flexible; with removal of ? tumor(s), polyp(s), or other lesion(s) by snare ? technique Diagnosis Code(s): ? --- Professional --- ? K64.9, Unspecified hemorrhoids ? Z12.11, Encounter for screening for malignant neoplasm ? of colon ? D12.5, Benign neoplasm of sigmoid colon CPT copyright 2020 [employer]. All rights reserved. The codes documented in this report are preliminary and upon machine clothing replacer review may be revised to meet current compliance requirements. SHLOMO CAST Shlomo Cast DO 02/26/2024 11:47:38 AM This report has been signed electronically.Shlomo Cast DO Number of Addenda: 0 Note Initiated On: 02/26/2024 11:18 AM Scope Withdrawal Time: 0 hours 7 minutes 15 seconds Scope In: 11:34:19 AM Scope Out: 11:45:11 AM ? Endoscopy Department at [facility] - [address] [place] [address], ? [place] [id number] Procedure Note Shlomo Cast DO - 02/26/2024 [facility] GI Patient Name: Laura Kidd Procedure Date: 02/26/2024 11:18 AM Date of : 1945 Age: 79 Room: ROOM 16 Gender: Female Note Status: Finalized Attending MD: Shlomo Cast DO,[id number] Procedure Date No Time: 02/26/2024 Procedure: Colonoscopy Indications: Screening for colorectal malignant neoplasm Providers: Shlomo Cast DO Referring MD: Shlomo Cast DO Medicines: Monitored Anesthesia Care Complications: No immediate complications. Estimated blood loss: Minimal. Estimated Blood Loss: Estimated blood loss was minimal. Procedure: Pre-Anesthesia Assessment: - - Prior to the procedure, a History and Physicalwas performed, and patient medications and allergieswere reviewed. The patient is competent. The risks and benefits of the procedure and the sedation optionsand risks were discussed with the patient. Allquestions were answered and informed consent was obtained. Patient identification and proposed procedure were verified by the physician, the nurse, the anesthesiologist, the horn player and thetechnician in the pre-procedure area in the endoscopy suite. Mental Status Examination: alert and oriented.Airway Examination: normal oropharyngeal airway and neck mobility. Respiratory Examination: clear to auscultation. CV Examination: normal. Prophylactic Antibiotics: The patient does not requireprophylactic antibiotics. Prior Anticoagulants: The patient has taken no anticoagulant or antiplatelet agents. ASA Grade Assessment: II - A patient with severesystemic disease. After reviewing the risks and benefits,the patient was deemed in satisfactory condition to undergo the procedure. The anesthesia plan was touse monitored anesthesia care (MAC). Immediately priorto administration of medications, the patient was re-assessed for adequacy to receive sedatives. The heart rate, respiratory rate, oxygen saturations, blood pressure, adequacy of pulmonary ventilation,and response to care were monitored throughout the procedure. The physical status of the patient was re-assessed after the procedure. After I obtained informed consent, the scope was passed under direct vision. Throughout theprocedure, the patient's blood pressure, pulse, and oxygen saturations were monitored continuously. The Colonoscope was introduced through the anus and advanced to the cecum, identified by appendiceal orifice and ileocecal valve. The colonoscopy was performed without difficulty. The patient tolerated the procedure well. The quality of the bowel preparation was good. Findings: Hemorrhoids were found on perianal exam. A few small-mouthed diverticula were found in the sigmoid colon and descending colon. There was no evidence of diverticular bleeding. An 8 mm polyp was found in the sigmoid colon. The polyp was sessile. The polyp was removed with acold snare. Resection and retrieval were complete. Estimated blood loss was minimal. The exam was otherwise without abnormality ondirect and retroflexion views. Impression: - Hemorrhoids found on perianal exam. - One 8 mm polyp in the sigmoid colon, removed witha cold snare. Resected and retrieved. - The examination was otherwise normal on directand retroflexion views. Recommendation: - - Discharge patient to home. - High fiber diet. - Continue present medications. - Await pathology results. - Repeat colonoscopy for surveillance based on pathology results. Procedure Code(s): --- Professional --- 53847, Colonoscopy, flexible; with removal of tumor(s), polyp(s), or other lesion(s) by snare technique Diagnosis Code(s): --- Professional --- K64.9, Unspecified hemorrhoids Z12.11, Encounter for screening for malignantneoplasm of colon D12.5, Benign neoplasm of sigmoid colon CPT copyright 2020 [employer]. All rights reserved. The codes documented in this report are preliminary and upon machine clothing replacer reviewmay be revised to meet current compliance requirements. SHLOMO CAST Shlomo Cast DO 02/26/2024 11:47:38 AM This report has been signed electronically.Shlomo Cast DO Number of Addenda: 0 Note Initiated On: 02/26/2024 11:18 AM Scope Withdrawal Time: 0 hours 7 minutes 15 seconds Scope In: 11:34:19 AM Scope Out: 11:45:11 AM Endoscopy Department at [facility] - [address] [place] [id number] Shlomo Cast DO GI~PROCEDURE ORDERAB LES * Tissue exam (02/26/2024 11:42 AM EST) Final Diagnosis A. Large Intestine, Sigmoid Colon, polyp x1: Tubular adenoma (multiple fragments). 02/27/2024 12:11 PM [facility] Gross Description A. Large Intestine, Sigmoid Colon, polyp x1: Labeled with the patient's name and information. Received in formalin, are multiple irregular soft, christie tissue fragments, approximately ranging from less than 0.1 cm to 1.3 cm in greatest diameters, admixed with fecal/food debris, and aggregating to 1.7 x 0.8 x 0.2 cm. The specimen is wrapped in paper and submitted in toto in one cassette, multiple pieces, multiple levels. Note: Small tissue fragments may not survive processing. 02/27/2024 12:11 PM [facility] Disclaimer Unless otherwise specified, all tissue is 10% NB formalin fixed and paraffin embedded. 02/27/2024 12:11 PM [facility] Tissue Sigmoid colon structure / Unknown 02/26/2024 11:42 AM EST 02/26/2024 12:20 PM EST Shlomo [facility] PATHOLOGY ORDERA BLES [facility] [address] [place] [address], * Annual BMP Blood Test (10/30/2023) Annual BMP Blood Test Abstracted Historical Provider [facility] * (ABNORMAL) Hemoglobin A1c (10/30/2023) Hemoglobin A1C 8.8(A) 6.5 % Blood Venous blood specimen / Unknown Historical Provider LAB BLOOD ORDERAB LES * (ABNORMAL) Lipid panel (01/11/2023) LDL/HDL Ratio 4 0 - 4 Triglycerides 280(A) 0 - 150 mg/dL Cholesterol 155 0 - 200 mg/dL HDL 43 40 mg/dL LDL Cholesterol 56 0 - 100 mg/dL Blood Venous blood specimen / Unknown Historical Provider LAB BLOOD ORDERAB LES * DXA BONE DENSITY STUDY 1+ SITS AXIAL SKEL (12/22/2022 2:34 PM EDT) Anatomical Region Laterality Modality Bone Densitometr y 06/10/2022 8:16 AM EST Narrative 12/22/2022 6:44 PM EDT BONE DENSITY SCAN (DEXA): FINDINGS: Lumbar Spine T-score is -0.5. ?? (SD relative to 20-29 y/o adult) Z-score is 2.0. ??(SD relative to age matched peers) This is considered normal by WHO criteria. Left Hip T-score is -3.3. Z-score is -1.2. This is considered osteoporosis by WHO criteria. Comparison exam(s): 10/15/2020. ??3.9% loss of left hip bone mineral density which is statistically significant at the 95% confidence level. ??No statistically significant change in lumbar spine bone mineral density. IMPRESSION: IMPRESSION: ?? Osteoporosis by WHO criteria. The [facility] Department of Internal Medicine recommends using National Osteoporosis Foundation (NOF) guidelines in treatment decisions related to osteoporosis. NOF guidelines suggest considering treatment for postmenopausal women and men aged 50 or older presenting with the following: History of hip or vertebral fracture. T-score = -2.5 (DXA) at the femoral neck, total hip, or spine, after appropriate evaluation to exclude secondary causes. Low bone mass (T-score between -1.0 and -2.5 at the femoral neck or spine) AND a 10-year probability of a hip fracture = 3% OR a 10-year probability of a major osteoporosis-related fracture = 20% based on the [place]-adapted WHO algorithm Please note that all treatment decisions require clinical judgment and consideration of individual patient factors, including patient preferences, co-morbidities, previous drug use, risk factors not captured in the FRAX model (e.g., frailty, falls, vitamin D deficiency, increased bone turnover, interval significant decline in bone density) and possible under- or over-estimation of fracture risk by FRAX. Optional alternative screening schedule based on rashad Boothe., [facility] May 12, 2011 for patients with osteopenia (based on hip BMD T-score) is as follows: * ??advanced osteopenia (T scores -2.00 to -2.49), BMD testing every year * ??moderate osteopenia (T scores -1.50 to -1.99), BMD testing every 5 years mild osteopenia or normal BMD (T scores -1.50 and higher), BMD testing every 15 years Procedure Note Ailyn Lee MD - 05/30/2023 BONE DENSITY SCAN (DEXA): FINDINGS: Lumbar Spine T-score is -0.5. (SD relative to 20-29 y/o adult) Z-score is 2.0. (SD relative to age matched peers) This is considered normal by WHO criteria. Left Hip T-score is -3.3. Z-score is -1.2. This is considered osteoporosis by WHO criteria. Comparison exam(s): 10/15/2020. 3.9% loss of left hip bone mineraldensity which is statistically significant at the 95% confidence level. No statisticallysignificant change in lumbar spine bone mineral density. IMPRESSION: IMPRESSION: Osteoporosis by WHO criteria. The [facility] Department of Internal Medicine recommendsusing National Osteoporosis Foundation (NOF) guidelines in treatment decisions related toosteoporosis. NOF guidelines suggest considering treatment for postmenopausal women and menaged 50 or older presenting with the following: History of hip or vertebral fracture. T-score = -2.5 (DXA) at the femoral neck, total hip, or spine, afterappropriate evaluation to exclude secondary causes. Low bone mass (T-score between -1.0 and -2.5 at the femoral neck or spine)AND a 10-year probability of a hip fracture = 3% OR a 10-year probability of a majorosteoporosis-related fracture = 20% based on the [place]-adapted WHO algorithm Please note that all treatment decisions require clinical judgment andconsideration of individual patient factors, including patient preferences, co- morbidities,previous drug use, risk factors not captured in the FRAX model (e.g., frailty, falls, vitaminD deficiency, increased bone turnover, interval significant decline in bone density) andpossible under- or over-estimation of fracture risk by FRAX. Optional alternative screening schedule based on pacheco Boothe al., NEJMJanuary 2011 for patients with osteopenia (based on hip BMD T-score) is as follows: * advanced osteopenia (T scores -2.00 to -2.49), BMD testing every year * moderate osteopenia (T scores -1.50 to -1.99), BMD testing every 5years mild osteopenia or normal BMD (T scores -1.50 and higher), BMD testingevery 15 years Mervat Cruz MD IM DXA PROCEDURES * Diabetes Foot Exam (02/11/2022) [facility] Diabetes: Annual Foot Exam Abstracted Historical Provider [facility] * Urine Albumin Creatinine Ratio (10/12/2021) [facility] Urine Albumin Creatinine Ratio Abstracted Historical Provider [facility] * Hepatitis C Screening (12/18/2014) [facility] Hepatitis C Screening Abstracted Historical [facility] Last 3 Months or Most Recently Relevant to Health Maintenance Care Teams Hydraulic Elevator Constructor Relationship Specialty Start Date End Date Susie Starr DO [address] [place] [address] [facility] - General 01/11/23
--- OUTSIDE RECORDS SUMMARY | 2024-05-21 15:44 | XMS_ITS | Encounter Summary ---
Author Organization Formerly [facility] Address [address] [place] [address] Care Team Providers Care Radiologic Tech Name Role Phone Ashley Rosado APRN Primary Care Provider Unav Triston Jaffe MD Unavailable Remedios Warren Unavailable Unavailable Umang Corado BUSINESS CONTINUITY DIRECTOR Unavailable Johana Lizarraga MD Primary Care Provider Chanda Soria NP Unavailable Susie Starr DO Primary Care Provider Johana Lizarraga MD Primary Care Provider Susie Starr DO Primary Care Provider Phil Rodriguez MD Primary Care Provider Unavail able Susie Starr DO Primary Care Provider Loreto Albert MD Unavailable [phone] Lizbeth Schilling APRN Primary Care Provider Susie Starr DO Primary Care Provider [phone] Reason for Visit * Reason Onset Date Comments refill request 04/06/2020 Encounter Details Date Type Department Care Team Description 04/06/2020 Refill Adult Medicine [facility] [address] [place] [address] Ashley Rosado APRN refill request Social History Tobacco Use Types Packs/Day Years [...] week 04/13/2023 How often do you attend [facility] or denominational services? More than 4 times per year 04/13/2023 Do you belong to any clubs o r organizations such as spiritism groups, unions, fraternal or athletic groups, or [...] place to sleep or slept in a correction (including now)? No 04/13/2023 Sex Assigned at Date Recorded Not on file Job Start Date Occupation Industry Not on file Not on file Not on file COVID-19 Exposure Response Date Recorded In the last month, have you been in contact with someone who was confirmed or suspected to have Coronavirus / COVID-19? No / Unsure 04/06/2020 1:07 PM EST documented as of this encounter Miscellaneous Notes * Telephone Encounter - Lorrie De La Cruz M.A. - 04/06/2020 4:08 PM EST Faxed to pharmacy Will call for uds in the morning * Telephone Encounter - Lizbeth Schilling APRN - 04/06/2020 3:37 PM EST Time for UDS * Telephone Encounter - Silvia Rose M.A. - 04/06/2020 3:22 PM EST Date of last office visit was 02/28/20 Controlled substance contract and last issue date of medication reviewed. Patient is due for medication. Lab Results Component Value Date URBENZO NONE DETECTED 03/25/2019 UROPIATES NONE DETECTED 03/25/2019 URBARBITUATE NONE DETECTED 03/25/2019 PAINAMPHETAM NONE DETECTED 03/25/2019 PAINCOCAINE NONE DETECTED 03/25/2019 PAINCANNABIN NONE DETECTED 03/25/2019 * Telephone Encounter - Deidra Garcia - 04/06/2020 11:05 AM EST Patient would like script to be: E-PRESCRIBED/FAXED TO PHARMACY WHEN WAS THE PATIENT'S LAST APPOINTMENT IN ADULT MEDICINE? 02-28-20 WHEN WAS THE LAST TIME THE PATIENT SAW THEIR PCP? Same as above Does patient have an upcoming appointment? No-patient awaiting CB from nurse regarding an appt (THE MEDICATION REQUESTED IS ON THE MED LIST ABOVE) One or some of the medications requested were on the HISTORICAL MED list Did you check the Pharmacy information above?: YES Patient wants: 30 -day supply Is this a mail order prescription request ? NO If the refill is from a FAXED refill request what is the RX # listed on the fax? N/A Patients current insurance carrier is: Payor: [facility] M[facility] / Plan[facility] [id number] / Product Type: HMO [id number] documented in this encounter Plan of Treatment Not on file documented as of this encounter Visit Diagnoses Not on filedocumented in this encounter Care Teams Radiologic Tech Relationship Specialty Start Date End Date Ashley Rosado APRN PCP - General Internal Medicine 09/20/19 06/27/22 Johana Lizarraga MD [address] [place] [address] [place] [address] PCP - General Internal Medicine 06/28/22 11/30/22 Susie Starr, [address] [place] [address] PCP - General Internal Medicine 12/01/22 12/01/22 Johana Lizarraga MD [address] [place] [address] [place] [address] PCP - General Internal Medicine 12/02/22 12/29/22 Susie Starr, DO [address] [place] [address] PCP - General Internal Medicine 12/30/22 12/30/22 Phil Rodriguez MD [address] [place] [address] PCP - General Internal Medicine 01/04/23 01/10/23 Susie Starr, DO [address] [place] [address] PCP - General Internal Medicine 01/11/23 02/01/24 Lizbeth Schilling APRN [address] [place] [address] PCP - General Internal Medicine 02/02/24 02/11/24 Susie Starr, DO [address] [place] [address] PCP - General Internal Medicine 02/12/24 Triston Bailey MD [address] [place] [address] Dr Hui [address] [place] [id number] Tuber Machine Operator Helper Cardiovascular Disease 06/10/20 Remedios Warren, PA [address] [place] [address] [place] [address] Cardiology 12/08/21 Umang Corado NP [address] [place] [address] [address] Specialist Cardiology 02/23/22 Chanda Soria, KIRAN [address] [place] [address] [address] Cardiology 08/11/22 Loreto Albert MD [address] [place] [id number] Internal Medicine 04/13/23 documented as of this encounter
--- OUTSIDE RECORDS SUMMARY | 2024-05-21 15:44 | XMS_ITS | Encounter Summary ---
Author Organization [facility] Address [address] [place] [address] Care Team Providers Care Pack Press Operator Name Role Phone Phil Rodriguez MD Primary Care Provider Unavail able Ashley Rosado APRN Primary Care Provider Unav ailable Triston Bailey MD Unavailable Remedios Warren PA Unavailable Unavailable Umang Corado ORCHARD HAND Unavailable [phone] Johana Lizarraga MD Primary Care Provider Chanda Soria ORCHARD HAND Unavailable Susie Starr DO Primary Care Provider [phone] Johana Lizarraga MD Primary Care Provider Susie Starr DO Primary Care Provider [phone] Phil Rodriguez MD Primary Care Provider Unavail able Susie Starr DO Primary Care Provider Loreto Albert MD Unavailable [phone] Lizbeth Schilling APRN Primary Care Provider [phone] Susie Starr DO Primary Care Provider [phone] Encounter Details Date Type Department Care Team Description 03/06/2015 Hospital Medical Records [address] [place] [address] [facility] Social History Tobacco Use Types Packs/Day Years [...] week 04/13/2023 How often do you attend [facility] or methodist services? More than 4 times per year 04/13/2023 Do you belong to any clubs o r organizations such as amish groups, unions, fraternal or athletic groups, or [...] place to sleep or slept in a assisted (including now)? No 04/13/2023 Sex Assigned at Date Recorded Not on file Job Start Date Occupation Industry Not on file Not on file Not on file documented as of this encounter Plan of Treatment Not on file documented as of this encounter Visit Diagnoses Not on filedocumented in this encounter Care Teams Pack Press Operator Relationship Specialty Start Date End Date Phil Rodriguez MD PCP - General Internal Medicine 12/15/14 09/19/19 Ashley Rosado APRN PCP - General Internal Medicine 09/20/19 06/27/22 Johana Lizarraga MD [address] [place] [address] [place] [address] PCP - General Internal Medicine 06/28/22 11/30/22 Susie Starr, DO [address] [place] [address] [place] [address] PCP - General Internal Medicine 12/01/22 12/01/22 Johana Lizarraga MD [address] [place] [address] [place] [address] PCP - General Internal Medicine 12/02/22 12/29/[address] [address] PCP - General Internal Medicine 12/30/22 12/30/22 Phil Rodriguez MD PCP - General Internal Medicine 01/04/23 01/10/[address] [address] PCP - General Internal Medicine 01/11/23 02/01/24 Lizbeth Schilling, PAYMENT PROCESSOR [address] [place] [address] PCP - General Internal Medicine 02/02/24 02/11/[address] [address] PCP - General Internal Medicine 02/12/24 Triston Bailey MD [address] [place] [address] [place] [address] Pick Up Cardiovascular Disease 06/10/20 Remedios Warren PA [address] [place] [address] [place] [address] Cardiology 12/08/21 Umang Corado NP [address] [place] [address] [place] [address] Specialist Cardiology 02/23/22 Chanda Soria NP [address] [place] [address] [place] [address] Cardiology 08/11/22 Loreto Albert MD [address] [place] [address] Internal Medicine 04/13/23 documented as of this encounter
--- OUTSIDE RECORDS SUMMARY | 2024-05-21 15:44 | XMS_ITS | Encounter Summary ---
Author Organization [facility] Address [address] [place] [address] Care Team Providers Care Licensed Customs Broker Name Role Phone Triston Bailey MD Unavailable [phone] Remedios Warren Unavailable Unavailable Umang Corado CONCRETE BUCKET HOOKER Unavailable Chanda Soria NP Unavailable Susie Starr DO Primary Care Provider Loreto Albert MD Unavailable [phone] Lizbeth Schililng APRN Primary Care Provider Susie Starr DO Primary Care Provider [phone] Reason for Visit * Reason Onset Date Comments refill request 03/31/2023 Encounter Details Date Type Department Care Team Description 03/31/2023 Refill Adult Medicine [address] [id number] Susie Starr DO [address] [place] [address] [id number] refill request Social History Tobacco Use Types [...] week 04/13/2023 How often do you attend [facility] or synagogue services? More than 4 times per year 04/13/2023 Do you belong to any clubs o r organizations such as jainism groups, unions, fraternal or athletic groups, or [...] on file documented as of this encounter Miscellaneous Notes * Telephone Encounter - Merline Xiao M.A. - 03/31/2023 12:25 PM EST Faxed to pharmacy * Telephone Encounter - Silvia Rose M.A. - 03/31/2023 12:15 PM EST Date of last office visit was 01/11/23. Pended appt for 04/05/23 Controlled substance contract and last issue date of medication reviewed. Patient is due for medication. Lab Results Component Value Date URBENZO NONE DETECTED 06/23/2022 UROPIATES NONE DETECTED 06/23/2022 UROXYCODONE NONE DETECTED 06/23/2022 URBARBITUATE NONE DETECTED 06/23/2022 PAINAMPHETAM NONE DETECTED 06/23/2022 PAINCOCAINE NONE DETECTED 06/23/2022 PAINCANNABIN NONE DETECTED 06/23/2022 * Telephone Encounter - Brian Leonard - 03/31/2023 12:05 PM EST Patient would like script to be: E-PRESCRIBED/FAXED TO PHARMACY WHEN WAS THE PATIENT'S LAST APPOINTMENT IN ADULT MEDICINE? 01/11/23 WHEN WAS THE LAST TIME THE PATIENT SAW THEIR PCP? Same as above Does patient have an upcoming appointment? Yes 04/05/23 (THE MEDICATION REQUESTED IS ON THE MED LIST ABOVE) All of the medications requested were on the CURRENT MEDS list Did you check the Pharmacy information above?: YES Patient wants: 90 -day supply Is this a mail order prescription request ? NO If the refill is from a FAXED refill request what is the RX # listed on the fax? N/A Patients current insurance carrier is: Payor: [facility] MCR / Plan: [facility] $0 [facility] [id number] / Product Type: HMO [id number] documented in this encounter Plan of Treatment Not on file documented as of this encounter Visit Diagnoses Diagnosis Anxiety Anxiety state, unspecified documented in this encounter Care Teams Licensed Customs Broker Relationship Specialty Start Date End Date Susie Starr, DO [address] [place] [address] PCP - General Internal Medicine 01/11/23 02/01/24 Lizbeth Schilling, KAIAKO KURA KAUPAPA MAORI [address] [place] [address] PCP - General Internal Medicine 02/02/24 02/11/24 Ro Susie, DO [address] [place] [address] PCP - General Internal Medicine 02/12/24 Triston Bailey MD [address] [place] [address] [place] [address] Compliance Review Specialist Cardiovascular Disease 06/10/20 Remedios Warren PA [address] [place] [address] [place] [address] Cardiology 12/08/21 Umang Corado NP [address] [place] [address] [facility] [place] [address] Specialist Cardiology 02/23/22 Chanda Soria, KIRAN [address] [place] [address] [address] Cardiology 08/11/22 Loreto Albert MD [address] [place] [address] Internal Medicine 04/13/23 documented as of this encounter
--- OUTSIDE RECORDS SUMMARY | 2024-05-21 15:44 | XMS_ITS | Encounter Summary ---
Author Organization [facility] Address [address] [place] [address] Care Team Providers Care Proposal Writer Name Role Phone Phil Rodriguez MD Primary Care Provider Unavail able Ashley Rosado APRN Primary Care Provider Unav ailable Triston Bailey MD Unavailable Remedios Warren PA Unavailable Unavailable Umang Corado NP Unavailable Johana Lizarraga MD Primary Care Provider Chanda Soria WAGON PERSON Unavailable Susie Starr DO Primary Care Provider Johana Lizarraga MD Primary Care Provider Susie Starr DO Primary Care Provider Phil Rodriguez MD Primary Care Provider Unavail able Susie Starr DO Primary Care Provider [phone] Loreto Albert MD Unavailable [phone] Lizbeth Schilling APRN Primary Care Provider [phone] Susie Starr DO Primary Care Provider [phone] Reason for Visit * Reason Onset Date Comments Pre-visit Diabetes Lab Adult Medicine 03/04/201503/18 Encounter Details Date Type Department Care Team Description 03/04/2015 Telephone Adult Medicine A [address] [address] Phil Rodriguez MD Pre-visit Diabetes Lab Adult Medicine (03/18) Social History Tobacco Use Types Packs/Day Years [...] week 04/13/2023 How often do you attend [facility] or buddhist services? More than 4 times per year 04/13/2023 Do you belong to any clubs o r organizations such as samaritan groups, unions, fraternal or athletic groups, or [...] place to sleep or slept in a long-term (including now)? No 04/13/2023 Sex Assigned at Date Recorded Not on file Job Start Date Occupation Industry Not on file Not on file Not on file documented as of this encounter Miscellaneous Notes * Telephone Encounter - Erika Jackson - 03/05/2015 9:41 AM EST Patient aware * Telephone Encounter - Marleen Westbrook - 03/04/2015 10:02 AM EST A message was left on the patients voice mail to return call to [facility]. If patient calls back, please instruct the patient to have their diabetes lab work completed at least 3 days prior to their upcoming appointment in Adult Medicine on 03/18/15 at 9:[address] Rodriguez. Let the patient know our lab is open on the weekends in the [place] office only. The patient does not need to be fasting to complete the lab work. documented in this encounter Plan of Treatment Not on file documented as of this encounter Visit Diagnoses Not on filedocumented in this encounter Care Teams Proposal Writer Relationship Specialty Start Date End Date Phil Rodriguez MD PCP - General Internal Medicine 12/15/14 09/19/19 Ashley Rosado APRN PCP - General Internal Medicine 09/20/19 06/27/22 Johana Lizarraga MD [address] [place] [address] [place] [address] PCP - General Internal Medicine 06/28/22 11/30/22 Susie Starr, [address] [place] [address] PCP - General Internal Medicine 12/01/22 12/01/22 Johana Lizarraga MD [address] [place] [address] [place] [address] PCP - General Internal Medicine 12/02/22 12/29/22 Susie Starr, [address] [place] [address] PCP - General Internal Medicine 12/30/22 12/30/22 Phil Rodriguez MD PCP - General Internal Medicine 01/04/23 01/10/23 Susie Starr, [address] [place] [address] PCP - General Internal Medicine 01/11/23 02/01/24 Lizbeth Schilling STICKER ON [address] [place] [address] PCP - General Internal Medicine 02/02/24 02/11/24 Ro Susie, DO [address] [place] [address] PCP - General Internal Medicine 02/12/24 Triston Bailey MD [address] [place] [address] [place] [address] Blindstitch Hemmer Cardiovascular Disease 06/10/20 Remedios Warren, STEPHAN [address] [place] [address] [place] [address] Cardiology 12/08/21 Umang Corado NP [address] [place] [address] [place] [address] Specialist Cardiology 02/23/22 Chanda Soria, KIRAN [address] [place] [address] [address] Cardiology 08/11/22 Loreto Albert MD [address] [place] [address] Internal Medicine 04/13/23 documented as of this encounter
--- OUTSIDE RECORDS SUMMARY | 2024-05-21 15:44 | XMS_ITS | Encounter Summary ---
Author Organization [facility] Address [address] [place] [address] Care Team Providers Care Chronometer Adjuster Name Role Phone Phil Rodriguez MD Primary Care Provider Unavail able Ashley Rosado APRN Primary Care Provider Unav ailable Triston Bailey MD Unavailable Remedios Warren PA Unavailable Unavailable Umang Corado HOME CARE PROVIDER Unavailable [phone] Johana Lizarraga MD Primary Care Provider Chanda Soria HOME CARE PROVIDER Unavailable Susie Starr DO Primary Care Provider [phone] Johana Lizarraga MD Primary Care Provider Susie Starr DO Primary Care Provider [phone] Phil Rodriguez MD Primary Care Provider Unavail able Susie Starr DO Primary Care Provider Loreto Albert MD Unavailable [phone] Lizbeth Schilling APRN Primary Care Provider [phone] Susie Starr DO Primary Care Provider [phone] Reason for Visit * Reason Onset Date Comments medication problems 11/20/2017 Encounter Details Date Type Department Care Team Description 11/20/2017 Telephone Adult Medicine [facility] [address] [place] [address] Phil Rodriguez MD medication problems Social History Tobacco Use Types Packs/Day Years [...] week 04/13/2023 How often do you attend [facility] or yarsani services? More than 4 times per year 04/13/2023 Do you belong to any clubs o r organizations such as presybeterian groups, unions, fraternal or athletic groups, or [...] encounter Miscellaneous Notes * Telephone Encounter - Libzeth Schilling APRN - 11/20/2017 11:33 AM EDT Resent * Telephone Encounter - Cecile Mayo M.A - 11/20/2017 11:30 AM EDT Script was fax today for vivina with 2 different instructions. Please clarify. * Telephone Encounter - Rosana John - 11/20/2017 10:25 AM EDT Who is calling? A pharmacist: Pharmacy: [email or web address] Pharmacist Name: willy Name of the medication tizanidine (ZANAFLEX) 2 MG capsule What is the specific problem or interaction? Please clarify instructions If the patient is having a problem with taking the med - how long has the problem been going on? N/A documented in this encounter Plan of Treatment Not on file documented as of this encounter Visit Diagnoses Not on filedocumented in this encounter Care Teams Chronometer Adjuster Relationship Specialty Start Date End Date Phil Rodriguez MD PCP - General Internal Medicine 12/15/14 09/19/19 Ashley Rosado APRN PCP - General Internal Medicine 09/20/19 06/27/22 Johana Lizarraga MD [address] [place] [address] [place] [address] PCP - General Internal Medicine 06/28/22 11/30/22 Susie Starr, DO [address] [place] [address] PCP - General Internal Medicine 12/01/22 12/01/22 Johana Lizarraga MD [address] [place] [address] [place] [address] PCP - General Internal Medicine 12/02/22 12/29/22 Susie Starr, DO [address] [place] [address] PCP - General Internal Medicine 12/30/22 12/30/22 Phil Rodriguez MD PCP - General Internal Medicine 01/04/23 01/10/23 Susie Starr, DO [address] [place] [address] PCP - General Internal Medicine 01/11/23 02/01/24 Lizbeth Schilling APRN [address] [place] [address] PCP - General Internal Medicine 02/02/24 02/11/24 Susie Starr, [address] [place] [address] PCP - General Internal Medicine 02/12/24 Triston Bailey MD [address] [place] [address] Dr [address]ui [address] [place] [address] Diving Judge Cardiovascular Disease 06/10/20 Remedios Warren PA [address] [place] [address] Dr Hui [address] [place] [address] Cardiology 12/08/21 Umang Corado NP [address] [place] [address] [place] [address] Specialist Cardiology 02/23/22 Chanda Soria NP [address] [place] [address] [address] Cardiology 08/11/22 Loreto Albert MD [address] [place] [address] Internal Medicine 04/13/23 documented as of this encounter
--- OUTSIDE RECORDS SUMMARY | 2024-05-21 15:44 | XMS_ITS | Encounter Summary ---
Author Organization [facility] Address [address] [place] [address] Care Team Providers Care Brick Chimney Supervisor Name Role Phone Ashley Rosado APRN Primary Care Provider Unav Triston Jaffe MD Unavailable Remedios Warren Unavailable Unavailable Umang Corado CLEANER SIGNS Unavailable Johana Lizarraga MD Primary Care Provider Chanda Soria NP Unavailable Susie Starr DO Primary Care Provider Johana Lizarraga MD Primary Care Provider Susie Starr DO Primary Care Provider Phil Rodriguez MD Primary Care Provider Unavail able Susie Starr DO Primary Care Provider Loreto Albert MD Unavailable [phone] Lizbeth Schilling APRN Primary Care Provider Susie Starr DO Primary Care Provider [phone] Reason for Visit * Reason Onset Date Comments refill request 06/08/2020 Encounter Details Date Type Department Care Team Description 06/08/2020 Refill Adult Medicine - [address] [address] Ashley Rosado APRN refill request Social History [...] week 04/13/2023 How often do you attend [facility] or confucianism services? More than 4 times per year 04/13/2023 Do you belong to any clubs o r organizations such as yazidism groups, unions, fraternal or athletic groups, or [...] place to sleep or slept in a longterm (including now)? No 04/13/2023 Sex Assigned at Date Recorded Not on file Job Start Date Occupation Industry Not on file Not on file Not on file documented as of this encounter Miscellaneous Notes * Telephone Encounter - Lorrie De La Cruz M.A. - 06/09/2020 8:20 AM EST Left a message to call back. Please put call to [phone] or remessage to a-Cheers In * Telephone Encounter - Silvia Rose M.A. - 06/08/2020 5:02 PM EST Date of last office visit was 05/06/20. Controlled substance contract and last issue date of medication reviewed. Patient is due for medication. Lab Results Component Value Date URBENZO NONE DETECTED 04/23/2020 UROPIATES NONE DETECTED 04/23/2020 URBARBITUATE NONE DETECTED 04/23/2020 PAINAMPHETAM NONE DETECTED 04/23/2020 PAINCOCAINE NONE DETECTED 04/23/2020 PAINCANNABIN NONE DETECTED 04/23/2020 * Telephone Encounter - Mary Chopra - 06/08/2020 10:56 AM EST Patient would like script to be: E-PRESCRIBED/FAXED TO PHARMACY WHEN WAS THE PATIENT'S LAST APPOINTMENT IN ADULT MEDICINE? 05/06/20 WHEN WAS THE LAST TIME THE PATIENT SAW THEIR PCP? Same as above Does patient have an upcoming appointment? Yes no (THE MEDICATION REQUESTED IS ON THE MED [...] N/A Patients current insurance carrier is: [facility] M[facility] / Plan: O $0 [facility] [id number] / Product Type: HMO [id number] documented in this encounter Plan of Treatment Not on file documented as of this encounter Visit Diagnoses Not on filedocumented in this encounter Care Teams Brick Chimney Supervisor Relationship Specialty Start Date End Date Ashley Rosado APRN PCP - General Internal Medicine 09/20/19 06/27/22 Johana Lizarraga MD [address] [place] [address] [place] [address] PCP - General Internal Medicine 06/28/22 11/30/22 Zacharyemily Susie, DO [address] [place] [address] PCP - General Internal Medicine 12/01/22 12/01/22 Johana Lizarraga MD [address] [place] [address] [place] [address] PCP - General Internal Medicine 12/02/22 12/29/22 Lisa Starrmana, DO [address] [place] [address] PCP - General Internal Medicine 12/30/22 12/30/22 Phil Rodriguez MD [address] [place] [address] PCP - General Internal Medicine 01/04/23 01/10/[address] [facility] [address] [place] [address] PCP - General Internal Medicine 01/11/23 02/01/24 Lizbeth Schilling APRN [address] [place] [address] PCP - General Internal Medicine 02/02/24 02/11/24 ZacharyLisa ramirezmana, DO [address] [place] [address] PCP - General Internal Medicine 02/12/24 Triston Bailey MD [address] [place] [address] [place] [address] Television Maintenance Worker Cardiovascular Disease 06/10/20 Remedios Warren PA [address] [place] [address] Dr Hui [address] [place] [address] Cardiology 12/08/21 Umang Corado NP [address] [place] [address] [place] [address] Specialist Cardiology 02/23/22 Chanda Soria NP [address] [place] [address] Bre[address] Hui [address] [place] [address] Cardiology 08/11/22 Loreto Albert MD [address] [place] [address] Internal Medicine 04/13/23 documented as of this encounter
--- OUTSIDE RECORDS SUMMARY | 2024-05-21 15:44 | XMS_ITS | Encounter Summary ---
Author Organization [facility] Address [address] [place] [address] Care Team Providers Care Private Tutor Name Role Phone Phil Rodriguez MD Primary Care Provider Unavail able Tony Rodriguez MD Primary Care Provider Unavail able Phil Rodriguez MD Primary Care Provider Unavail able Ashley Rosado APRN Primary Care Provider Unav ailable Triston Bailey MD Unavailable [phone] Remedios Warren Unavailable Unavailable Umang Corado AIRPORT SECURITY SCREENER Unavailable Johana Lizarraga MD Primary Care Provider Chanda Soria AIRPORT SECURITY SCREENER Unavailable Susie Starr DO Primary Care Provider [phone] Johana Lizarraga MD Primary Care Provider Susie Starr DO Primary Care Provider [phone] Phil Rodriguez MD Primary Care Provider Unavail able Susie Starr DO Primary Care Provider [phone] Loreto Albert MD Unavailable [phone] Lizbeth Schilling APRN Primary Care Provider Susie Starr DO Primary Care Provider [phone] Reason for Visit * Reason Onset Date Comments Urine Drug Screen 08/04/2014 Encounter Details Date Type Department Care Team Description 08/04/2014 Telephone Adult Medicine [address] [address] Phil Rodriguez MD Urine Drug Screen Social History Tobacco Use Types Packs/Day Years [...] week 04/13/2023 How often do you attend [facility] or christian services? More than 4 times per year 04/13/2023 Do you belong to any clubs o r organizations such as sikh groups, unions, fraternal or athletic groups, or [...] place to sleep or slept in a usp (including now)? No 04/13/2023 Sex Assigned at Date Recorded Not on file Job Start Date Occupation Industry Not on file Not on file Not on file documented as of this encounter Miscellaneous Notes * Telephone Encounter - Silvia Rose M.A. - 08/04/2014 8:53 AM EDT Pt was notified to complete a random urine drug screen in our [facility] by 08/05/14. The patientwas also instructed that failure to complete this urine drug screen, as requested, would jeopardizetheir Controlled Substance Contract with [facility]. The patient expressed understanding of the instructions and confirmed that they will arrive by that date. There may be a language barrier. Pt said she understood, but unclear if she really did. documented in this encounter Plan of Treatment Not on file documented as of this encounter Results * ASSAY, DIHYDROCODEINONE (08/04/2014 1:55 PM EDT) HYDROCODONE UR GCMS Negative . ng/mL 08/07/2014 6:07 PM EDT [facility] [employer] HYDROMORPHONE UR GCMS Negative . ng/mL 08/07/2014 6:07 PM EDT [facility] [employer] Comment: Performed at: ??[employer] [address] ??[id number] Road Driver: Ferdinand Castellon MD, Phone: ??[phone] 08/04/2014 1:55 PM EDT 08/04/2014 1:56 PM EDT Phil Rodriguez MD LAB Performing Organization Address City/[facility] Co de Phone Number [employer] * (ABNORMAL) OXYCODONE, URINE (08/04/2014 1:55 PM EDT) URINE OXYCODONE LEVEL POSITIVE( A) NEGATIVE 08/04/2014 5:27 PM EDT [facility] Comment: Semi-quantitative urine assay for screening purposes only. Unconfirmed screening results should not be used for non-medical purposes. ALTERNATE METHOD CONFIRMATION DONE UPON REQUEST ONLY 08/04/2014 1:55 PM EDT 08/04/2014 1:56 PM EDT Phil Rodriguez MD LAB Performing Organization Address City/[facility]/ZIP Co de Phone Number [address] documented in this encounter Visit Diagnoses Diagnosis Encounter for long-term (current) use of other medications- Primary documented in this encounter Care Teams Private Tutor Relationship Specialty Start Date End Date Phil Rodriguez MD PCP - General 03/07/05 12/04/14 Tony Rodriguez MD PCP - General Internal Medicine 12/05/14 12/14/14 Phil Rodriguez MD PCP - General Internal Medicine 12/15/14 09/19/19 Ashley Rosado APRN PCP - General Internal Medicine 09/20/19 06/27/22 Johana Lizarraga MD [address] [place] [address] [place] [address] PCP - General Internal Medicine 06/28/22 11/30/22 Ro [facility], DO [address] [place] [address] PCP - General Internal Medicine 12/01/22 12/01/22 Johana Lizarraga MD [address] [place] [address] [place] [address] PCP - General Internal Medicine 12/02/22 12/29/22 Zacharyjames [facility], DO [address] [facility] [place] [address] PCP - General Internal Medicine 12/30/22 12/30/22 Phil Rodriguez MD PCP - General Internal Medicine 01/04/23 01/10/23 [facility], DO [address] [facility] [place] [address] PCP - General Internal Medicine 01/11/23 02/01/24 Lizbeth Schilling APRN [address] [facility] [address] PCP - General Internal Medicine 02/02/24 02/11/24 Lisa Starrmana, DO [address] [facility] [place] [address] PCP - General Internal Medicine 02/12/24 Triston Bailey MD [address] [place] [address] [place] [address] Quality Process Lead Cardiovascular Disease 06/10/20 Remedios Warren PA [address] [place] [address] [place] [address] Cardiology 12/08/21 Umang Corado NP [address] [place] [address] [place] [address] Specialist Cardiology 02/23/22 Chanda Soria NP [address] [place] [address] [place] [address] Cardiology 08/11/22 Loreto Albert MD [address] [place] [address] Internal Medicine 04/13/23 documented as of this encounter
--- OUTSIDE RECORDS SUMMARY | 2024-05-21 15:44 | XMS_ITS | Encounter Summary ---
Author Organization [facility] Address [address] [place] [address] Care Team Providers Care Cab Driver Name Role Phone Phil Rodriguez MD Primary Care Provider Unavail able Ashley Rosado APRN Primary Care Provider Unav ailable Triston Bailey MD Unavailable [phone] Remedios Warren PA Unavailable Unavailable Umang Corado RN RECRUITMENT Unavailable Johana Lizarraga MD Primary Care Provider Chanda Soria RN RECRUITMENT Unavailable Susie Starr DO Primary Care Provider Johana Lizarraga MD Primary Care Provider Susie Starr DO Primary Care Provider Phil Rodriguez MD Primary Care Provider Unavail able Susie Starr DO Primary Care Provider [phone] Loreto Albert MD Unavailable [phone] Lizbeth Schilling APRN Primary Care Provider [phone] Susie Starr DO Primary Care Provider [phone] Reason for Visit * Reason Onset Date Comments Call From Pharmacy 04/05/2017 Encounter Details Date Type Department Care Team Description 04/05/2017 Telephone Adult Medicine [address] [address] Phil Rodriguez MD Call From Pharmacy Social History Tobacco Use Types Packs/Day Years [...] 04/13/2023 How often do you attend [facility] or latter day services? More than 4 times per year [...] place to sleep or slept in a prison (including now)? No 04/13/2023 Sex Assigned at Date Recorded Not on file Job Start Date Occupation Industry Not on file Not on file Not on file documented as of this encounter Miscellaneous Notes * Telephone Encounter - PATY Bonilla - 04/05/2017 2:30 PM EST Ordered * Telephone Encounter - Silvia Rose M.A. - 04/05/2017 2:22 PM EST Spoke with the pt. She is asking for the duo neb solution for her nebulizer. She states that is works better than the albuterol. Rx pended for signature * Telephone Encounter - Silvia Rose M.A. - 04/05/2017 1:40 PM EST Spoke with the pharmacist. The pt is asking for a refill on the duo neb and not the albuterol solution. Left message for patient to call the office. Please transfer call to [phone] if there is no answer please remessage to message pool Which solution is the pt requesting. Duo neb last refill in 2013 * Telephone Encounter - Jude Gamboa - 04/05/2017 1:29 PM EST Who is calling? A pharmacist: Pharmacy: [facility]ist Name: [facility] Name of the medication albuterol (PROVENTIL) (2.5 MG/3ML) 0.083% nebulizer solution What is the specific problem or interaction? Jessica is calling because the patient is telling her this is wasn't she wanted If the patient is having a problem with taking the med - how long has the problem been going on? N/A documented in this encounter Plan of Treatment Not on file documented as of this encounter Visit Diagnoses Not on filedocumented in this encounter Care Teams Cab Driver Relationship Specialty Start Date End Date Phil Rodriguez MD PCP - General Internal Medicine 12/15/14 09/19/19 Ashley Rosado APRN PCP - General Internal Medicine 09/20/19 06/27/22 Johana Lizarraga MD [address] [place] [address] [place] [address] PCP - General Internal Medicine 06/28/22 11/30/22 Susie Starr, DO [address] [place] [address] PCP - General Internal Medicine 12/01/22 12/01/22 Johana Lizarraga MD Medical [place] [address] PCP - General Internal Medicine 12/02/22 12/29/[address] [address] PCP - General Internal Medicine 12/30/22 12/30/22 Phil Rodriguez MD PCP - General Internal Medicine 01/04/23 01/10/[address] [address] PCP - General Internal Medicine 01/11/23 02/01/24 Lizbeth Schilling, TELEGRAPH INSTALLER [address] [place] [address] PCP - General Internal Medicine 02/02/24 02/11/[address] [address] PCP - General Internal Medicine 02/12/24 Trsiton Bailey MD [address] [place] [address] [place] [address] Feller Buncher Operator Cardiovascular Disease 06/10/20 Remedios Warren PA [address] [facility] [place] [address] Cardiology 12/08/21 Umang Corado NP [address] [place] [address] [place] [address] Specialist Cardiology 02/23/22 Chanda Soria NP [address] [place] [address] [place] [address] Cardiology 08/11/22 Loreto Albert MD [address] [place] [address] Internal Medicine 04/13/23 documented as of this encounter
--- OUTSIDE RECORDS SUMMARY | 2024-05-21 15:44 | XMS_ITS | Encounter Summary ---
Author Organization [facility] Address [address] [place] [address] Care Team Providers Care Operational Test Mechanic Name Role Phone CarrilloSusie ramirez Primary Care Provider [phone] Reason for Referral * Imaging (Routine) - Authorized Specialty Diagnoses / Procedures Referred By Ana yip Referred To Contact Radiology Diagnoses Left upper quadrant abdominal pain Procedures CT Abdomen Pelvis wo Contrast Tresa Douglas NP [address] [address] [facility] [address] Scan [address] [place] [address] Referral ID Status Reason Start Date Expiration Date V isits Requested Visits Authorized [id number] Authorized 05/14/2024 09/11/2024 1 1 Reason for Visit * Reason Comments Abdominal Pain Left side Encounter Details Date Type Department Care Team ([facility] st Contact Info) Description 05/07/2024 1:00 PM EST Office Visit Gastroenterology - David 175 [facility] 175 [facility] [address] [place] [phone] Tresa Douglas NP [address] [address] Left upper quadrant abdominal pain (Primary Dx) Social History Tobacco Use Types Packs/Day Years Used Date Smoking Tobacco: Former Cigarettes Q uit: 04/24/1989 Smokeless Tobacco: Never Alcohol Use Standard Drinks/Week Comments Never 0 (1 standard drink = 0.6 oz pur e alcohol) Sex and Gender Information Value Date Recorded Sex Assigned at Female 02/21/2024 10:31 AM EDT Gender Identity Female 02/21/2024 10:31 AM EDT Sexual Orientation Not on file Job Start Date Occupation Industry Not on file Not on file Not on file documented as of this encounter Last Filed Vital Signs Vital Sign Reading Time Taken Comments Blood Pressure 118/75 05/07/2024 12:56 PM EST Pulse 87 05/07/2024 12:56 PM EST Temperature - - Respiratory Rate - - Oxygen Saturation 98% 05/07/2024 12:56 PM EST Inhaled Oxygen Concentration - - Weight 66.7 kg (147 lb) 05/07/2024 12:56 PM EST Height 157.5 cm (5' 2 ) 05/07/2024 12:56 PM EST Body Mass Index 26.89 05/07/2024 12:56 PM EST documented in this encounter Progress Notes * Tresa Douglas, KIRAN - 05/07/2024 1:00 PM EST CONSULT REQUEST CHIEF COMPLAINT: Abdominal Pain (Left side) HPI: Margarita Kidd is a 79 y.o. 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 Patient was last seen in January for evaluation of recurrent diverticulitis. She completed a colonoscopy in February. Significant findings included hemorrhoids and 1 tubular adenomatous polyp. Today,she reports ongoing abdominal pain. She describes a pain that comes and goes , occurring on a daily basis. Pain is sometimes sharp or stabbing , it feels like a baby moving, feels like a ball moving on her left upper quadrant . She is unable to identify aggravating or relieving factors. She ratespain as 5/10 on the pain scale. There are no associated symptoms. She denies fever or malaise, nausea, vomiting, dysphagia, odynophagia, hematemesis, unintentional weight loss, change in bowel habits, melena or hematochezia. Colonoscopy 02/26/2024: Hemorrhoids. One 8 mm polyp in the sigmoid colon. Pathology: Tubular adenoma. CT abdomen/pelvis with IV contrast 11/06/2023: Acute uncomplicated diverticulitis of the proximal descending colon. Adenomyomatosis of the gallbladder unchanged from previous exam dated 09/02/2020. Likely pelvic congestion syndrome. Colonoscopy 12/12/2016: Diverticulosis sigmoid and descending colon. ROS: GENERAL: No malaise, significant weight loss or fever HEENT: No changes in hearing or vision, nose bleeds or swallowing problems NECK: No lumps, goiter, pain or significant neck swelling RESPIRATORY: No cough, wheezing or shortness of breath CARDIOVASCULAR: No chest pain GI: See HPI MUSCULOSKELETAL: Chronic back pain SKIN: No lesions, rash or itching PAST MEDICAL HISTORY: Patient Active Problem List Diagnosis MARGARITA positive Anxiety and depression CAD (coronary artery disease) Carotid stenosis Chronic pain of both knees Chronic rhinitis CKD (chronic kidney disease) stage 3, GFR 30-59 ml/min (CMS/HCC) Elevated sed rate Headache HTN (hypertension) Hyperlipidemia Iron deficiency anemia Kidney lesion, [place], right Lung nodules Mild persistent asthma MR (mitral regurgitation) Osteoporosis Polyneuropathy Primary osteoarthritis of both knees Radiculitis, cervical Radiculitis, lumbosacral Spinal stenosis in cervical region Thyroid nodule Tremor Urinary incontinence DM (diabetes mellitus), type 2 with neurological complications (CMS/HCC) DM (diabetes mellitus), type 2 with renal complications (CMS/HCC) PAST SURGICAL HISTORY: Past Surgical History: Procedure Laterality Date BACK SURGERY 2011 PROCEDURE: HISTORICAL BACK SURGERY; COMMENT: cervical fusion COLONOSCOPY 06/12/2008 PROCEDURE: HISTORICAL COLONOSCOPY; COMMENT: negative COLONOSCOPY 12/12/2016 PROCEDURE: HISTORICAL COLONOSCOPY; COMMENT: Diverticulosis; otherwise negative examination. OTHER SURGICAL HISTORY 01/04/2017 PROCEDURE: OUTSIDE ENDOSCOPY; COMMENT: [facility]; intestinal pillcam normal. UPPER GASTROINTESTINAL ENDOSCOPY 12/12/2016 PROCEDURE: [facility] UPPER GI ENDOSCOPY PERFORMED; COMMENT: Visually normal; duodenal biopsies: normal. SOCIAL HISTORY: Social History Tobacco Use Smoking status: Former Current packs/day: 0.00 Types: Cigarettes Quit date: 04/24/1989 Years since quittin.0 Smokeless tobacco: Never Substance Use Topics Alcohol use: Never Drug use: No FAMILY HISTORY: Family History Problem Relation Name Age of Onset Diabetes Father Diabetes Mother Diabetes Daughter x5 Hypertension Daughter x5 Diabetes Brother 21 kids Diabetes Sister Heart attack Sister Colon cancer Maternal Grandmother Breast cancer Neg Hx Ovarian cancer Neg Hx MEDICATIONS: Outpatient Medications Marked as Taking for the 05/07/24 encounter (Office Visit) with Tresa Douglas NP Medication Sig Dispense Refill albuterol HFA (Ventolin HFA) 90 mcg/actuation inhaler Inhale 2 puffs by mouth every 6 (six) hours if needed for wheezing. 1 each 0 alirocumab (Praluent Pen) 75 mg/mL pen injector INJECT 75 MG INTO THE SKIN EVERY 14 DAYS amLODIPine (NORVASC) 2.5 mg tablet TAKE 1 TABLET BY MOUTH DAILY 90 tablet 1 aspirin 81 mg chewable tablet Chew 1 tablet (81 mg total) 1 (one) time each day. blood sugar diagnostic (FreeStyle Lite Strips) test strip USE DIRECTED TO TEST BLOOD SUGAR TWICEDAILY BEFORE A MEAL blood-glucose meter kit To use to test blood sugar calcium carbonate 1,500 mg (600 mg elemental calcium) tablet Take 600 mg by mouth. denosumab (Prolia) 60 mg/mL syringe syringe INJECT 1 SYRINGE (60MG) UNDER THE SKIN EVERY 6 MONTHS ezetimibe (ZETIA) 10 mg tablet TAKE 1 TABLET BY MOUTH DAILY 90 tablet 3 fluticasone HFA (FLOVENT HFA) 220 mcg/actuation inhaler Inhale 1 Puff into the lungs 2 times daily. fluticasone-salmeterol (Wixela Inhub) 250-50 mcg/dose diskus inhaler Inhale 1 puff by mouth 2 (two)times a day. Rinse mouth with water after use to reduce aftertaste and incidence of candidiasis. Donot swallow. 1 each 12 FREESTYLE LANCETS [facility] USE TO TEST BLOOD SUGAR TWICE DAILY hydroCHLOROthiazide 12.5 mg tablet TAKE 1 TABLET BY MOUTH DAILY 90 tablet 1 incontinence pad, liner, disp pad Disposable Incontinence liners Use up to 8 times daily for Incontinence Indefinite Use Dx: R32 ,E11.49, E11.29 , N18.30, G62.9, R26.81 ipratropium-albuteroL (DUONEB) 0.5-2.5 mg/3 mL nebulizer solution USE 3 ML VIA NEBULIZER FOUR TIMESDAILY NEEDED FOR COUGH OR WHEEZING OR SHORTNESS OF BREATH isosorbide mononitrate (IMDUR) 30 mg 24 hr tablet TAKE 2 TABLETS BY MOUTH DAILY lisinopriL (PRINIVIL,ZESTRIL) 10 mg tablet Take 1 tablet (10 mg total) by mouth 1 (one) time each day. 90 tablet 1 LORazepam (ATIVAN) 2 mg tablet Take 1 tablet (2 mg total) by mouth 1 (one) time each day if needed for anxiety for up to 28 days. Max Daily Amount: 2 mg 28 tablet 0 meclizine (ANTIVERT) 12.5 mg tablet Take 1 tablet (12.5 mg total) by mouth 3 (three) times a day ifneeded for dizziness. 30 tablet 0 metFORMIN XR (GLUCOPHAGE-XR) 500 mg 24 hr tablet TAKE 1 TABLET BY MOUTH TWICE DAILY 180 tablet 1 ALLERGIES: Allergies Allergen Reactions Naproxen Nausea And Vomiting Penicillins Rash PHYSICAL EXAM: Visit Vitals BP 118/75 Pulse 87 Ht 1.575 m (62 ) Wt 66.7 kg (147 lb) SpO2 98% BMI 26.89 kg/m?? OB Status Postmenopausal Smoking Status Former BSA 1.68 m?? APPEARANCE: Alert and in no acute distress EYES: Conjunctiva and sclera normal. MOUTH/THROAT: No erythema, exudates or lesions noted NECK: Neck supple, no adenopathy HEART: RRR with normal S1 and S2 LUNG: Clear to auscultation ABDOMEN: LUQ tenderness, no ascites, guarding, or rebound. RECTAL: Exam deferred NEURO: Awake, alert and oriented x 3 SKIN: Skin color, texture, turgor normal. LABS: No pertinent labs IMAGING: No results found for this or any previous visit from the past 365 days. IMPRESSION: 1. Left upper quadrant abdominal pain PLAN: Margarita Kidd is a 79 y.o. 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 1. Left upper quadrant abdominal pain: Tenderness elicited on exam on left upper quadrant. No associated symptoms. Schedule diagnostic CT scan to further investigate. I will update on further care and management depending on CT scan results. Patient agrees with the above plan and understands the need to follow up as indicated. Please note, this note may have been created in part by using [employer] software, and therefore, it may contain typographical and/or grammatical errors inherent in a voice recognition software program No orders of the defined types were placed in this encounter. None documented in this encounter Plan of Treatment Upcoming Encounters Date Type Department Care Team (Late st Contact Info) Description 05/23/2024 1:00 PM EST Office Visit Endocrinology - [address] [address] Mervat Cruz MD [address] [place] [address] 07/25/2024 1:00 PM EDT Office Visit Internal Medicine - [address] [address] Susie Starr DO [address] [place] [address] 09/12/2024 11:30 AM EDT Office Visit Pulmonolgy - David [address] [address] Denia Mcdonnell MD [address] [address] Scheduled Orders Name Type Priority Associated Diagnoses Orde r Schedule CT Abdomen Pelvis wo Contrast Imaging Routine Left upper quadrant abdominal pain Expected: 05/08/2024, Expires: 05/08/2025 documented as of this encounter Visit Diagnoses Diagnosis Left upper quadrant abdominal pain- Primary documented in this encounter Care Teams Operational Test Mechanic Relationship Specialty Start Date End Date Susie Starr DO [address] [place] [address] PCP - General 01/11/23 documented as of this encounter
--- OUTSIDE RECORDS SUMMARY | 2024-05-21 15:44 | XMS_ITS | Encounter Summary ---
Author Organization [facility] Address [address] [place] [address] Care Team Providers Care General Ledger Bookkeeper Name Role Phone Ashley Rosado APRN Primary Care Provider Unav Triston Jaffe MD Unavailable Remedios Warren Unavailable Unavailable Umang Corado DECORATIVE GREENS CUTTER Unavailable Johana Lizarraga MD Primary Care Provider Chanda Soria NP Unavailable Susie Starr DO Primary Care Provider Johana Lizarraga MD Primary Care Provider Susie Starr DO Primary Care Provider Phil Rodriguez MD Primary Care Provider Unavail able Susie Starr DO Primary Care Provider Loreto Albert MD Unavailable [phone] Lizbeth Schilling APRN Primary Care Provider Susie Starr DO Primary Care Provider [phone] Encounter Details Date Type Department Care Team Description 05/18/2020 SCAN Medical Records [address] [place] [address] Triston Bailey MD [address] [place] [address] [place] [address] Social History Tobacco Use Types Packs/Day Years [...] week 04/13/2023 How often do you attend [facility] or lutheran services? More than 4 times per year 04/13/2023 Do you belong to any clubs o r organizations such as congregation groups, unions, fraternal or athletic groups, or [...] place to sleep or slept in a group home (including now)? No 04/13/2023 Sex Assigned at Date Recorded Not on file Job Start Date Occupation Industry Not on file Not on file Not on file COVID-19 Exposure Response Date Recorded In the last month, have you been in contact with someone who was confirmed or suspected to have Coronavirus / COVID-19? No / Unsure 05/06/2020 2:51 PM EST documented as of this encounter Plan of Treatment Not on file documented as of this encounter Visit Diagnoses Not on filedocumented in this encounter Care Teams General Ledger Bookkeeper Relationship Specialty Start Date End Date Ashley Rosado APRN PCP - General Internal Medicine 09/20/19 06/27/22 Johana Lizarraga MD [address] [place] [address] [place] [address] PCP - General Internal Medicine 06/28/22 11/30/22 [facility], [address] [place] [address] PCP - General Internal Medicine 12/01/22 12/01/22 Johana Lizarraga MD [address] [place] [address] [place] [address] PCP - General Internal Medicine 12/02/22 12/29/22 [facility], [address] [place] [address] PCP - General Internal Medicine 12/30/22 12/30/22 Phil Rodriguez MD [address] [place] [address] PCP - General Internal Medicine 01/04/23 01/10/23 [facility], [address] [place] [address] PCP - General Internal Medicine 01/11/23 02/01/24 Lizebth Schilling APRN [address] [place] [address] PCP - General Internal Medicine 02/02/24 02/11/24 [facility], [address] [place] [address] PCP - General Internal Medicine 02/12/24 Triston Bailey MD [address] [place] [address] [place] [address] Product Responsibility Liaison Cardiovascular Disease 06/10/20 Remedios Warren PA [address] [place] [address] [place] [address] Cardiology 12/08/21 Umang Corado NP [address] [place] [address] Specialist Cardiology 02/23/22 Chanda Soria NP [address] [place] [address] Cardiology 08/11/22 Loreto Albert MD [address] [place] [address] Internal Medicine 04/13/23 documented as of this encounter
--- OUTSIDE RECORDS SUMMARY | 2024-05-21 15:44 | XMS_ITS | Encounter Summary ---
Author Organization [facility] Address [address] [place] [address] Care Team Providers Care Fundraising Director Name Role Phone Phil Rodriguez MD Primary Care Provider Unavail able Tony Rodriguez MD Primary Care Provider Unavail able Phil Rodriguez MD Primary Care Provider Unavail able Ashley Rosado APRN Primary Care Provider Unav ailable Triston Bailey MD Unavailable Remedios Warren Unavailable Unavailable Umang Corado RN ENDOCRINOLOGY Unavailable Johana Lizarraga MD Primary Care Provider Chanda Soria RN ENDOCRINOLOGY Unavailable Susie Starr DO Primary Care Provider [phone] Johana Lizarraga MD Primary Care Provider Susie Starr DO Primary Care Provider [phone] Phil Rodriguez MD Primary Care Provider Unavail able Susie Starr DO Primary Care Provider [phone] oLreto Albert MD Unavailable [phone] Lizbeth Schilling APRN Primary Care Provider [phone] Susie Starr DO Primary Care Provider [phone] Encounter Details Date Type Department Care Team Description 05/08/2014 ROAD CUTTER/[employer] Report Medical Records [address] [place] [address] Abstract, Provider Social History Tobacco Use Types Packs/Day Years [...] week 04/13/2023 How often do you attend [facility] or rastafari services? More than 4 times per year 04/13/2023 Do you belong to any clubs o r organizations such as latter-day groups, unions, fraternal or athletic groups, or [...] on filedocumented in this encounter Care Teams Fundraising Director Relationship Specialty Start Date End Date Phil Rodriguez MD PCP - General 03/07/05 12/04/14 Tony Rodriguez MD PCP - General Internal Medicine 12/05/14 12/14/14 Phil Rodriguez MD PCP - General Internal Medicine 12/15/14 09/19/19 Ashley Rosado APRN PCP - General Internal Medicine 09/20/19 06/27/22 Jhoana Lizarraga MD [address] [place] [address] [place] [address] PCP - General Internal Medicine 06/28/22 11/30/22 [facility], [address] [place] [address] PCP - General Internal Medicine 12/01/22 12/01/22 Johana Lizarraga MD [address] [place] [address] [place] [address] PCP - General Internal Medicine 12/02/22 12/29/22 [facility] [address] [facility] [place] [address] PCP - General Internal Medicine 12/30/22 12/30/22 Phil Rodriguez MD PCP - General Internal Medicine 01/04/23 01/10/23 [facility], [address] [place] [address] PCP - General Internal Medicine 01/11/23 02/01/24 Lizbeth Schilling, DRAWING MACHINE OPERATOR [address] [place] [address] PCP - General Internal Medicine 02/02/24 02/11/24 [facility], [address] [place] [address] PCP - General Internal Medicine 02/12/24 Triston Bailey MD [address] [place] [address] [place] [address] Butcherette Cardiovascular Disease 06/10/20 Remedios Warren PA [address] [place] [address] [place] [address] Cardiology 12/08/21 Umang Corado NP [address] [place] [address] Dr [address] [place] [address] Specialist Cardiology 02/23/22 Chanda Soria NP [address] [place] [address] Drive [facility] [address] [place] [address] Cardiology 08/11/22 Loreto Albert MD [address] [place] [address] Internal Medicine 04/13/23 documented as of this encounter
--- OUTSIDE RECORDS SUMMARY | 2024-05-21 15:44 | XMS_ITS | Encounter Summary ---
Author Organization [facility] Address [address] [place] [address] Care Team Providers Care Harp Maker Name Role Phone Triston Bailey MD Unavailable [phone] Remedios Warren Unavailable Unavailable Umang Corado NP Unavailable [phone] Chanda Soria NP Unavailable [phone] Susie Starr DO Primary Care Provider Loreto Albert MD Unavailable [phone] Lizbeth Schilling APRN Primary Care Provider [phone] Susie Starr DO Primary Care Provider Reason for Visit * Reason Comments E-prescribe Rx Request Encounter Details Date Type Department Care Team Description 04/28/2023 Refill Adult Medicine [facility] [address] [place], [place] [id number] Jhoan Garibay NP [address] [place] [address] E-prescribe Rx Request Social History Tobacco Use Types Packs/Day Years [...] week 04/13/2023 [facility] or uatsdin services? More than 4 times per year 04/13/2023 Do you belong to any clubs o r organizations such as worship groups, unions, fraternal or athletic groups, or [...] place to sleep or slept in a fdc (including now)? No 04/13/2023 Sex Assigned at Date Recorded Not on file Job Start Date Occupation Industry Not on file Not on file Not on file documented as of this encounter Miscellaneous Notes * Telephone Encounter - Lorrie De La Cruz M.A. - 04/28/2023 4:33 PM EST Drew 04/05/23 no pended Lab Results Component Value Date NA 142 04/05/2023 K 5.0 04/05/2023 CO2 26 04/05/2023 CL 110 04/05/2023 BUN 29 04/05/2023 CREAT 1.09 04/05/2023 GLU 96 04/05/2023 CA 10.0 04/05/2023 GFR 53 04/05/2023 * Telephone Encounter - Nilsa Lakhani - 04/28/2023 4:31 PM EST Patient would like script to be: E-PRESCRIBED/FAXED TO PHARMACY ?? WHEN WAS THE PATIENT'S LAST APPOINTMENT IN ADULT MEDICINE? 04/05/23 ?? WHEN WAS THE LAST TIME THE PATIENT SAW THEIR PCP? Same as above ?? Does patient have an upcoming appointment? None ?? (THE MEDICATION REQUESTED IS ON THE MED LIST ABOVE) All of the medications requested were on the CURRENT MEDS list ?? Did you check the Pharmacy information above?: YES ?? Patient wants: 90 -day supply ?? Is this a mail order prescription request ? NO ?? If the refill is from a FAXED refill request what is the RX # listed on the fax? N/A ?? Patients current insurance carrier is: Pay[facility] [employer] / Plan: Wide Limited Release Film Distribution Fund $0 [facility] [id number] / Product Type: HMO [id number] ? documented in this encounter Plan of Treatment Not on file documented as of this encounter Visit Diagnoses Diagnosis Primary hypertension Unspecified essential hypertension documented in this encounter Care Teams Harp Maker Relationship Specialty Start Date End Date Susie Starr DO [address] [place] [address] PCP - General Internal Medicine 01/11/23 02/01/24 Lizbeth Schilling APRN [address] [place] [address] PCP - General Internal Medicine 02/02/24 02/11/24 Susie Starr DO [address] [place] [address] PCP - General Internal Medicine 02/12/24 Triston Bailey MD [address] [place] [address] [place] [address] Phone Banker Cardiovascular Disease 06/10/20 Remedios Warren PA [address] [place] [address] [place] [address] Cardiology 12/08/21 Umang Corado NP [address] [place] [address] [place] [address] Specialist Cardiology 02/23/22 Chanda Soria NP [address] [place] [address] [place] [address] Cardiology 08/11/22 Loreto Albert MD [address] [place] [address] Internal Medicine 04/13/23 documented as of this encounter
--- OUTSIDE RECORDS SUMMARY | 2024-05-21 15:44 | XMS_ITS | Encounter Summary ---
Author Organization [facility] Address [address] [place] [address] Care Team Providers Care Airline Station Agent Name Role Phone Phil Rodriguez MD Primary Care Provider Unavail able Ashley Rosado APRN Primary Care Provider Unav ailable Triston Bailey MD Unavailable Remedios Warren PA Unavailable Unavailable Umang Corado NP Unavailable Johana Lizarraga MD Primary Care Provider Chanda Soria BELLOWS FILLER Unavailable Susie Starr DO Primary Care Provider Johana Lizarraga MD Primary Care Provider Susie Starr DO Primary Care Provider Phil Rodriguez MD Primary Care Provider Unavail able Susie Starr DO Primary Care Provider Loreto Albert MD Unavailable [phone] Lizbeth Schilling APRN Primary Care Provider [phone] Susie Starr DO Primary Care Provider [phone] Encounter Details Date Type Department Care Team Description 06/06/2017 Telephone General Surgery [facility] [address] [facility] [address] [place] [address] Marisela Li MD [address] [place] [address] [id number] Social History Tobacco Use Types Packs/Day Years [...] week 04/13/2023 [facility] often [facility] you attend [facility] or hindu services? More than 4 times per year 04/13/2023 Do you belong to any clubs o r organizations such as baptism groups, unions, fraternal or athletic groups, or [...] place to sleep or slept in a care home (including now)? No 04/13/2023 Sex Assigned at Date Recorded Not on file Job Start Date Occupation Industry Not on file Not on file Not on file documented as of this encounter Miscellaneous Notes * Telephone Encounter - Paulina Alonzo M.A. - 06/07/2017 4:24 PM EST Pt scheduled * Telephone Encounter - Marisela Li MD - 06/06/2017 6:12 PM EST Please contact the patient and remind her to schedule the incisional biopsy of her LUE, at her convenience. Thanks. documented in this encounter Plan of Treatment Not on file documented as of this encounter Visit Diagnoses Not on filedocumented in this encounter Care Teams Airline Station Agent Relationship Specialty Start Date End Date Phil Rodriguez MD PCP - General Internal Medicine 12/15/14 09/19/19 Ashley Rosado APRN PCP - General Internal Medicine 09/20/19 06/27/22 Johana Lizarraga MD [address] [place] [address] [place] [address] PCP - General Internal Medicine 06/28/22 11/30/22 Lisa Starrmana, [address] [place] [address] PCP - General Internal Medicine 12/01/22 12/01/22 Johana Lizarraga MD [address] [place] [address] [place] [address] PCP - General Internal Medicine 12/02/22 12/29/22 Susie Starr, [address] [place] [address] PCP - General Internal Medicine 12/30/22 12/30/22 Phil Rodriguez MD PCP - General Internal Medicine 01/04/23 01/10/23 Susie Starr, [address] [place] [address] PCP - General Internal Medicine 01/11/23 02/01/24 Lizbeth Schilling APRN [address] [place] [address] PCP - General Internal Medicine 02/02/24 02/11/24 Susie Starr, [address] [place] [address] PCP - General Internal Medicine 02/12/24 Triston Bailey MD [address] [place] [address] [place] [address] Paper Cutter Cardiovascular Disease 06/10/20 Remedios Warren PA [address] [place] [address] [place] [address] Cardiology 12/08/21 Umang Corado NP [address] [place] [address] [place] [address] Specialist Cardiology 02/23/22 Chanda Soria NP [address] [place] [address] [address] Cardiology 08/11/22 Loreto Albert MD [address] [place] [address] Internal Medicine 04/13/23 documented as of this encounter
--- OUTSIDE RECORDS SUMMARY | 2024-05-21 15:44 | XMS_ITS | Encounter Summary ---
Author Organization [facility] Address [address] [place] [address] Care Team Providers Care Crusher And Blender Operator Name Role Phone Phil Rodriguez MD Primary Care Provider Unavail able Tony Rodriguez MD Primary Care Provider Unavail able Phil Rodriguez MD Primary Care Provider Unavail able Ashley Rosado APRN Primary Care Provider Unav ailable Triston Bailey MD Unavailable [phone] Remedios Warren Unavailable Unavailable Umang Corado LOCOMOTIVE INSPECTOR Unavailable Johana Lizarraga MD Primary Care Provider Chanda Soria LOCOMOTIVE INSPECTOR Unavailable Susie Starr DO Primary Care Provider [phone] Johana Lizarraga MD Primary Care Provider Susie Starr DO Primary Care Provider [phone] Phil Rodriguez MD Primary Care Provider Unavail able Susie Starr DO Primary Care Provider [phone] Loreto Albert MD Unavailable [phone] Lizbeth Schilling APRN Primary Care Provider [phone] Susie Starr DO Primary Care Provider [phone] Encounter Details Date Type Department Care Team Description 12/01/2010 [employer] Platemaker Report Medical Records [address] [place] [address] Simeon Reed Social History Tobacco Use Types Packs/Day Years [...] week 04/13/2023 How often do you attend chur or restorationist services? More than 4 times per year [...] place to sleep or slept in a skilled nursing (including now)? No 04/13/2023 Sex Assigned at Date Recorded Not on file Job Start Date Occupation Industry Not on file Not on file Not on file documented as of this encounter Plan of Treatment Not on file documented as of this encounter Visit Diagnoses Not on filedocumented in this encounter Care Teams Crusher And Blender Operator Relationship Specialty Start Date End Date Phil Rodriguez MD PCP - General 03/07/05 12/04/14 Tony Rodriguez MD PCP - General Internal Medicine 12/05/14 12/14/14 Phil Rodriguez MD PCP - General Internal Medicine 12/15/14 09/19/19 Ashley Rosado APRN PCP - General Internal Medicine 09/20/19 06/27/22 Johana Lizarraga MD [address] [place] [address] PCP - General Internal Medicine 06/28/22 11/30/22 [facility], [address] [place] [address] PCP - General Internal Medicine 12/01/22 12/01/22 Johana Lizarraga MD [address] [place] [address] [place] [address] PCP - General Internal Medicine 12/02/22 12/29/22 [facility] [address] [place] [address] PCP - General Internal Medicine 12/30/22 12/30/22 Phil Rodriguez MD PCP - General Internal Medicine 01/04/23 01/10/23 [facility], [address] [place] [address] PCP - General Internal Medicine 01/11/23 02/01/24 Lizbeth Schilling, TIMBER GIRDLER [address] [place] [address] PCP - General Internal Medicine 02/02/24 02/11/24 [facility], [address] [place] [address] PCP - General Internal Medicine 02/12/24 Triston Bailey MD [address] [place] [address] [place] [address] Dance Entertainer Cardiovascular Disease 06/10/20 Remedios Warren PA [address] [place] [address] Cardiology 12/08/21 Umang Corado NP [address] [place] [address] Dr [facility] [address] [place] [address] Specialist Cardiology 02/23/22 Chanda Soria NP [address] [place] [address] Breann [address] [place] [address] Cardiology 08/11/22 Loreto Albert MD [address] [place] [address] Internal Medicine 04/13/23 documented as of this encounter
--- OUTSIDE RECORDS SUMMARY | 2024-05-21 15:44 | XMS_ITS | Encounter Summary ---
Author Organization [facility] Address [address] [place] [address] Care Team Providers Care Fire Equipment Inspector Helper Name Role Phone Phil Rodriguez MD Primary Care Provider Unavail able Ashley Rosado APRN Primary Care Provider Unav ailable Triston Bailey MD Unavailable Remedios Warren PA Unavailable Unavailable Umang Corado COSTUMER ASSISTANT Unavailable Johana Lizarraga MD Primary Care Provider Chanda Soria COSTUMER ASSISTANT Unavailable Susie Starr DO Primary Care Provider Johana Lizarraga MD Primary Care Provider Susie Starr DO Primary Care Provider Phil Rodriguez MD Primary Care Provider Unavail able Susie Starr DO Primary Care Provider [phone] Loreto Albert MD Unavailable [phone] Lizbeth Schilling APRN Primary Care Provider [phone] Susie Starr DO Primary Care Provider [phone] Encounter Details Date Type Department Care Team Description 03/05/2015 Hospital Medical Records [address] [place] [address] Atul Barksdale MD Social History Tobacco Use Types Packs/Day [...] you attend [facility] or oriental orthodox services? More than 4 times per year 04/13/2023 Do you belong to any clubs o r organizations such as nondenominational groups, unions, fraternal or athletic groups, or [...] place to sleep or slept in a fpc (including now)? No 04/13/2023 Sex Assigned at Date Recorded Not on file Job Start Date Occupation Industry Not on file Not on file Not on file documented as of this encounter Plan of Treatment Not on file documented as of this encounter Visit Diagnoses Not on filedocumented in this encounter Care Teams Fire Equipment Inspector Helper Relationship Specialty Start Date End Date Phil Rodriguez MD PCP - General Internal Medicine 12/15/14 09/19/19 Ashley Rosado APRN PCP - General Internal Medicine 09/20/19 06/27/22 Johana Lizarraga MD [address] [place] [address] [place] [address] PCP - General Internal Medicine 06/28/22 11/30/22 Susie Starr, [address] [facility] [place] [address] PCP - General Internal Medicine 12/01/22 12/01/22 Johana Lizarraga MD [address] [place] [address] [place] [address] PCP - General Internal Medicine 12/02/22 12/29/22 [facility] [address] [place] [address] PCP - General Internal Medicine 12/30/22 12/30/22 Phil Rodriguez MD PCP - General Internal Medicine 01/04/23 01/10/[address] [address] PCP - General Internal Medicine 01/11/23 02/01/24 Lizbeth Schilling, VULCAN CREWMEMBER [address] [place] [address] PCP - General Internal Medicine 02/02/24 02/11/[address] [address] PCP - General Internal Medicine 02/12/24 Triston Bailey MD [address] [place] [address] [place] [address] Trimmer Operator Cardiovascular Disease 06/10/20 Remedios Warren PA [address] [place] [address] [place] [address] Cardiology 12/08/21 Umang Corado NP [address] [place] [address] [place] [address] Specialist Cardiology 02/23/22 Chanda Soria NP [address] [place] [address] [place] [address] Cardiology 08/11/22 Loreto Albert MD [address] [place] [address] Internal Medicine 04/13/23 documented as of this encounter
--- OUTSIDE RECORDS SUMMARY | 2024-05-21 15:44 | XMS_ITS | Encounter Summary ---
Author Organization [facility] Address [address] [place] [address] Care Team Providers Care Crop Consultant Name Role Phone Phil Rodriguez MD Primary Care Provider Unavail able Tony Rodriguez MD Primary Care Provider Unavail able Phil Rodriguez MD Primary Care Provider Unavail able Ashley Rosado APRN Primary Care Provider Unav ailable Triston Bailey MD Unavailable [phone] Remedios Warren Unavailable Unavailable Umang Corado BENCH PRESS OPERATOR Unavailable [phone] Johana Lizarraga MD Primary Care Provider Chnada Soria BENCH PRESS OPERATOR Unavailable Susie Starr DO Primary Care Provider [phone] Johana Lizarraga MD Primary Care Provider Susie Starr DO Primary Care Provider [phone] Phil Rodriguez MD Primary Care Provider Unavail able Susie Starr DO Primary Care Provider [phone] Loreto Albert MD Unavailable [phone] Lizbeth Schilling APRN Primary Care Provider Susie Starr DO Primary Care Provider Reason for Visit * Reason Onset Date Comments refill request 03/24/2014 Encounter Details Date Type Department Care Team Description 03/24/2014 Refill Adult Medicine [address] [address] Phil Rodriguez MD refill request Social History Tobacco Use Types [...] week 04/13/2023 How often do you attend [facility] or methodist services? More than 4 times per year 04/13/2023 Do you belong to any clubs o r organizations such as evangelical groups, unions, fraternal or athletic groups, or [...] place to sleep or slept in a jail (including now)? No 04/13/2023 Sex Assigned at Date Recorded Not on file Job Start Date Occupation Industry Not on file Not on file Not on file documented as of this encounter Miscellaneous Notes * Telephone Encounter - Silvia Rose M.A. - 03/25/2014 8:58 AM EST Script written and is in patient pick-up. * Telephone Encounter - Charisse Rosen L.P.N. - 03/24/2014 11:16 AM EST Last office visit 03/11/14.Controlled substance contract and last issue date of medication reviewed. Patient is due for medication. Component Value Date URINEOXYCOD POSITIVE 07/19/2013 URBENZO NEGATIVE 07/19/2013 URAMPHETAMIN NEGATIVE 07/19/2013 URMARIJUANA NEGATIVE 07/19/2013 UROPIATES NEGATIVE 07/19/2013 URBARBITUATE NEGATIVE 07/19/2013 URCOCAINE NEGATIVE 07/19/2013 HYDROCODONE Negative 07/19/2013 * Telephone Encounter - Theresa Wooten - 03/24/2014 10:46 AM EST Patient would like script to be: PLACED IN PATIENT EVENT SALES MANAGER When was the patients last office visit in Adult Medicine?: 03/11/14 When was the last time the patient saw their PCP? Same as above Does patient have an upcoming appointment? No-patient refused appointment, will call back to book appointment (THE MEDICATION IS NOT ON THE MED LIST AND IS IDENTIFIED BELOW): {MED LIST:42886) Med name: Oxycodone/ Acetaminophen Dosage: 5-325 MG # of tablets: 84 Local pharmacy with request for 30 -day supply Instructions: Take 1 to 2 tablets by mouth every 4 hours as needed for pain Did you check the pharmacy information above?: YES Patients current insurance carrier: Payor: [employer] [facility] / Plan: [employer] $0 [place] 148/ Product Type: HMO [id number] documented in this encounter Plan of Treatment Not on file documented as of this encounter Visit Diagnoses Diagnosis Chronic back pain- Primary Backache, unspecified documented in this encounter Care Teams Crop Consultant Relationship Specialty Start Date End Date Phil Rodriguez MD PCP - General 03/07/05 12/04/14 Tony Rodriguez MD PCP - General Internal Medicine 12/05/14 12/14/14 Phil Rodriguez MD PCP - General Internal Medicine 12/15/14 09/19/19 Ashley Rosado APRN PCP - General Internal Medicine 09/20/19 06/27/22 Johana Lizarraga MD [address] [place] [address] [place] [address] PCP - General Internal Medicine 06/28/22 11/30/22 [facility], [address] [facility] [place] [address] PCP - General Internal Medicine 12/01/22 12/01/22 Johana Lizarraga MD [address] [place] [address] [place] [address] PCP - General Internal Medicine 12/02/22 12/29/22 [facility], [address] [facility] [place] [address] PCP - General Internal Medicine 12/30/22 12/30/22 Phil Rodriguez MD PCP - General Internal Medicine 01/04/23 01/10/23 [facility], [address] [facility] [place] [address] PCP - General Internal Medicine 01/11/23 02/01/24 Lizbeth Schilling APRN [address] [facility] [place] [address] PCP - General Internal Medicine 02/02/24 02/11/24 [facility], [address] [facility] [place] [address] PCP - General Internal Medicine 02/12/24 Triston Bailey MD [address] [place] [address] [place] [address] Arts And Crafts Instructor Cardiovascular Disease 06/10/20 Remedios Warren PA [address] [place] [address] [place] [address] Cardiology 12/08/21 Umang Corado NP [address] [place] [address] [place] [address] Specialist Cardiology 02/23/22 Chanda Soria NP [address] [place] [address] [place] [address] Cardiology 08/11/22 Loreto Albert MD [address] [place] [address] Internal Medicine 04/13/23 documented as of this encounter
--- OUTSIDE RECORDS SUMMARY | 2024-05-21 15:44 | XMS_ITS | Encounter Summary ---
Author Organization [facility] Address [address] [place] [address] Care Team Providers Care Industrial Safety And Health Technician Name Role Phone Phil Rodriguez MD Primary Care Provider Unavail able Ashley Rosado APRN Primary Care Provider Unav ailable Triston Bailey MD Unavailable Remedios Warren PA Unavailable Unavailable Umang Corado NP Unavailable Johana Lizarraga MD Primary Care Provider Chanda Soria CREW LEADER Unavailable Susie Starr DO Primary Care Provider Johana Lizarraga MD Primary Care Provider Susie Starr DO Primary Care Provider Phil Rodriguez MD Primary Care Provider Unavail able Susie Starr DO Primary Care Provider [phone] Loreto Albert MD Unavailable [phone] Lizbeth Schilling APRN Primary Care Provider [phone] Susie Starr DO Primary Care Provider [phone] Encounter Details Date Type Department Care Team Description 08/04/2017 Orders Only Radiology - [address] [address] Phil Rodriguez MD Social History Tobacco Use Types Packs/Day [...] How often do you attend [facility] or pentecostal services? More than 4 times per year 04/13/2023 Do you belong to any clubs o r organizations such as mu-ism groups, unions, fraternal or athletic groups, or [...] place to sleep or slept in a halfway (including now)? No 04/13/2023 Sex Assigned at Date Recorded Not on file Job Start Date Occupation Industry Not on file Not on file Not on file documented as of this encounter Plan of Treatment Not on file documented as of this encounter Visit Diagnoses Not on filedocumented in this encounter Care Teams Industrial Safety And Health Technician Relationship Specialty Start Date End Date Phil Rodriguez MD PCP - General Internal Medicine 12/15/14 09/19/19 Ashley Rosado APRN PCP - General Internal Medicine 09/20/19 06/27/22 Johana Lizarraga MD [address] [place] [address] [place] [address] PCP - General Internal Medicine 06/28/22 11/30/22 Jaloudi, Susie, DO [address] [place] [address] PCP - General Internal Medicine 12/01/22 12/01/22 Johana Lizarraga MD [address] [place] [address] [place] [address] PCP - General Internal Medicine 12/02/22 12/29/22 [facility] [address] [place] [address] PCP - General Internal Medicine 12/30/22 12/30/22 Phil Rodriguez MD PCP - General Internal Medicine 01/04/23 01/10/23 [facility] [address] [place] [address] PCP - General Internal Medicine 01/11/23 02/01/24 Lizbeth Schilling, PHYSICAL THERAPIST AIDE [address] [place] [address] PCP - General Internal Medicine 02/02/24 02/11/24 [facility] [address] [place] [address] PCP - General Internal Medicine 02/12/24 Triston Bailey MD [address] [place] [address] [place] [address] Day Spa Manager Cardiovascular Disease 06/10/20 Remedios Warren PA [address] [place] [address] [place] [address] Cardiology 12/08/21 Umang Corado NP [address] [place] [address] [place] [address] Specialist Cardiology 02/23/22 Chanda Soria NP [address] [address] Cardiology 08/11/22 Loreto Albert MD [address] [place] [address] Internal Medicine 04/13/23 documented as of this encounter
--- OUTSIDE RECORDS SUMMARY | 2024-05-21 15:45 | XMS_ITS | Encounter Summary ---
Author Organization [facility] Address [address] [place] [address] Care Team Providers Care Bus Operator Name Role Phone Phil Rodriguez MD Primary Care Provider Unavail able Tony Rodriguez MD Primary Care Provider Unavail able Phil Rodriguez MD Primary Care Provider Unavail able Ashley Rosado APRN Primary Care Provider Unav ailable Triston Bailey MD Unavailable Remedios Warren Unavailable Unavailable Umang Corado MODERN LANGUAGES PROFESSOR Unavailable [phone] Johana Lizarraga MD Primary Care Provider Chanda Soria NP Unavailable Susie Starr DO Primary Care Provider [phone] Johana Lizarraga MD Primary Care Provider Susie Starr DO Primary Care Provider [phone] Phil Rodriguez MD Primary Care Provider Unavail able Susie Starr DO Primary Care Provider [phone] Loreto Albert MD Unavailable [phone] Lizbeth Schilling APRN Primary Care Provider Susie Starr DO Primary Care Provider [phone] Encounter Details Date Type Department Care Team Description 06/07/2010 Ground Nuclear Weapons Assembly Officer Report Medical Records [address] [place] [address] Barrett Begum MD Social History Tobacco Use Types Packs/Day [...] How often do you attend chur or baptism services? More than 4 times per year [...] on filedocumented in this encounter Care Teams Bus Operator Relationship Specialty Start Date End Date Phil Rodriguez MD PCP - General 03/07/05 12/04/14 Tony Rodriguez MD PCP - General Internal Medicine 12/05/14 12/14/14 Phil Rodriguez MD PCP - General Internal Medicine 12/15/14 09/19/19 Ashley Rosado APRN PCP - General Internal Medicine 09/20/19 06/27/22 Johana Lizarraga MD [address] [place] [address] Dr [place] [address] PCP - General Internal Medicine 06/28/22 11/30/22 [facility], [address] [place] [address] PCP - General Internal Medicine 12/01/22 12/01/22 Johana Lizarraga MD [address] [place] [address] [place] [address] PCP - General Internal Medicine 12/02/22 12/29/22 [facility] [address] [place] [address] PCP - General Internal Medicine 12/30/22 12/30/22 Phil Rodriguez MD PCP - General Internal Medicine 01/04/23 01/10/23 [facility], [address] [place] [address] PCP - General Internal Medicine 01/11/23 02/01/24 Lizbeth Schilling, DROP WORKER [address] [place] [address] PCP - General Internal Medicine 02/02/24 02/11/24 [facility], [address] [place] [address] PCP - General Internal Medicine 02/12/24 Triston Bailey MD [address] [place] [address] [place] [address] Surgery Aid Cardiovascular Disease 06/10/20 Remedios Warren PA [address] [facility] [place] [address] Cardiology 12/08/21 Umang Corado NP [address] [place] [address] [address] Specialist Cardiology 02/23/22 Chanda Soria NP [address] [place] [address] [address] Cardiology 08/11/22 Loreto Albert MD [address] [place] [address] Internal Medicine 04/13/23 documented as of this encounter
--- OUTSIDE RECORDS SUMMARY | 2024-05-21 15:45 | XMS_ITS | Encounter Summary ---
Author Organization [facility] Address [address] [place] [address] Care Team Providers Care Director Educational Radio Name Role Phone Ashley Rosado APRN Primary Care Provider Triston Franks MD Unavailable [phone] Remedios Warren Unavailable Unavailable Umang Corado ROAD MONKEY Unavailable [phone] Johana Lizarraga MD Primary Care Provider Chanda Soria NP Unavailable Susie Starr DO Primary Care Provider Johana Lizarraga MD Primary Care Provider Susie Starr DO Primary Care Provider Phil Rodriguez MD Primary Care Provider Unavail able Susie Starr DO Primary Care Provider [phone] Loreto Albert MD Unavailable [phone] Lizbeth Schilling APRN Primary Care Provider Susie Starr DO Primary Care Provider [phone] Encounter Details Date Type Department Care Team Description 09/06/2021 SCAN Medical Records [address] [place] [id number] Abstract, Provider Social History Tobacco Use Types Packs/Day Years Used Date Smoking Tobacco: Former Cigarettes Q uit: 04/24/1989 Smokeless Tobacco: Former Alcohol Use Standard Drinks/Week Comments No 0 [...] 04/13/2023 How often do you attend [facility] or cheondoism services? More than 4 times per year 04/13/2023 Do you belong to any clubs o r organizations such as jew groups, unions, fraternal or athletic groups, or [...] place to sleep or slept in a custodial (including now)? No 04/13/2023 Sex Assigned at Date Recorded Not on file Job Start Date Occupation Industry Not on file Not on file Not on file documented as of this encounter Plan of Treatment Not on file documented as of this encounter Procedures Procedure Name Priority Date/Time Associated Diagnosis Comments OUTSIDE LAB Routine 09/06/2021 documented in this encounter Results * OUTSIDE LAB (09/06/2021) Provider Abstract LAB documented in this encounter Visit Diagnoses Not on filedocumented in this encounter Care Teams Director Educational Radio Relationship Specialty Start Date End Date Ashley Rosado APRN PCP - General Internal Medicine 09/20/19 06/27/22 Johana Lizarraga MD [address] [place] [address] [place] [address] PCP - General Internal Medicine 06/28/22 11/30/22 Susie Starr, [address] [place] [address] PCP - General Internal Medicine 12/01/22 12/01/22 Johana Lizarraga MD [address] [place] [address] [place] [address] PCP - General Internal Medicine 12/02/22 12/29/22 [facility], [address] [place] [address] PCP - General Internal Medicine 12/30/22 12/30/22 Phil Rodriguez MD [address] [place] [address] PCP - General Internal Medicine 01/04/23 01/10/23 [facility], [address] [place] [address] PCP - General Internal Medicine 01/11/23 02/01/24 Lizbeth Schilling, MELISSA [address] [place] [address] PCP - General Internal Medicine 02/02/24 02/11/24 [facility], [address] [place] [address] PCP - General Internal Medicine 02/12/24 Triston Bailey [place] [address] Automotive Brake Adjuster Cardiovascular Disease 06/10/20 Remedios Warren PA [address] [facility] [place] [address] Cardiology 12/08/21 Umang Corado NP [address] [facility] [place] [address] Specialist Cardiology 02/23/22 Chanda Soria NP [address] [place] [address] Cardiology 08/11/22 Loreto Albert MD [address] [place] [address] Internal Medicine 04/13/23 documented as of this encounter
--- OUTSIDE RECORDS SUMMARY | 2024-05-21 15:45 | XMS_ITS | Encounter Summary ---
Author Organization [facility] Address [address] [place] [address] Care Team Providers Care Mica Parts Sprayer Name Role Phone Triston Bailey MD Unavailable [phone] Remedios Warren Unavailable Unavailable Umang Corado [employer] ROCKET CREW MEMBER Unavailable Chanda Soria NP Unavailable [phone] Susie Starr DO Primary Care Provider [phone] Loreto Albert MD Unavailable [phone] Lizbeth Schilling APRN Primary Care Provider Susie Starr DO Primary Care Provider [phone] Encounter Details Date Type Department Care Team Description 11/29/2023 Orders Only Medical Records [address] [place] [address] Lizbeth Schilling APRN [address] [place], [place] [id number] Social History Tobacco Use Types Packs/Day Years [...] How often do you attend chur or yarsanism services? More than 4 times per year 04/13/2023 Do you belong to any clubs o r organizations such as methodist groups, unions, fraKidos or athletic groups, or school groups? No [...] place to sleep or slept in a intermediate (including now)? No 04/13/2023 Sex Assigned at Date Recorded Not on file Job Start Date Occupation Industry Not on file Not on file Not on file documented as of this encounter Plan of Treatment Not on file documented as of this encounter Procedures Procedure Name Priority Date/Time Associated Diagnosis Comments OUTSIDE MAMMO Routine 11/29/2023 documented in this encounter Results * OUTSIDE MAMMO (11/29/2023) Lizbeth Schilling APRN RADIOLOGY documented in this encounter Visit Diagnoses Not on filedocumented in this encounter Care Teams Mica Parts Sprayer Relationship Specialty Start Date End Date Susie Starr, [address] [place] [address] PCP - General Internal Medicine 01/11/23 02/01/24 Lizbeth Schilling APRN [address] [place] [address] PCP - General Internal Medicine 02/02/24 02/11/24 Susie Starr DO [address] [place] [address] PCP - General Internal Medicine 02/12/24 Triston Bailey MD [address] [place] [address] [place] [address] Composing Room Supervisor Cardiovascular Disease 06/10/20 Remedios Warren PA [address] [place] [address] [place] [address] Cardiology 12/08/21 Umang Corado NP [address] [place] [address] [place] [address] Specialist Cardiology 02/23/22 Chanda Soria NP [address] [place] [address] [address] Cardiology 08/11/22 Loreto Albert MD [address] [place] [address] Internal Medicine 04/13/23 documented as of this encounter
--- OUTSIDE RECORDS SUMMARY | 2024-05-21 15:45 | XMS_ITS | Encounter Summary ---
Author Organization [facility] Address [address] [place] [address] Care Team Providers Care Ferruler Name Role Phone Phil Rodriguez MD Primary Care Provider Unavail able Ashley Rosado APRN Primary Care Provider Unav ailable Triston Bailey MD Unavailable Remedios Warren PA Unavailable Unavailable Umang Corado TREE TOPPER Unavailable [phone] Johana Lizarraga MD Primary Care Provider Chanda Soria TREE TOPPER Unavailable Susie Starr DO Primary Care Provider Johana Lizarraga MD Primary Care Provider Susie Starr DO Primary Care Provider Phil Rodriguez MD Primary Care Provider Unavail able Susie Starr DO Primary Care Provider [phone] Loreto Albert MD Unavailable [phone] Lizbeth Schilling APRN Primary Care Provider [phone] Susie Starr DO Primary Care Provider [phone] Encounter Details Date Type Department Care Team Description 02/22/2019 Extension Division Director Report Medical Records [address] [place] [address] Abstract, Provider Social History Tobacco Use Types [...] week 04/13/2023 How often do you attend [facility] or faith services? More than 4 times per year 04/13/2023 Do you belong to any clubs o r organizations such as mosque groups, unions, fraternal or athletic groups, or [...] place to sleep or slept in a mcfp (including now)? No 04/13/2023 Sex Assigned at Date Recorded Not on file Job Start Date Occupation Industry Not on file Not on file Not on file documented as of this encounter Plan of Treatment Not on file documented as of this encounter Visit Diagnoses Not on filedocumented in this encounter Care Teams Ferruler Relationship Specialty Start Date End Date Phil Rodriguez MD PCP - General Internal Medicine 12/15/14 09/19/19 Ashley Rosado APRN PCP - General Internal Medicine 09/20/19 06/27/22 Johana Lizarraga MD [address] [place] [address] [place] [address] PCP - General Internal Medicine 06/28/22 11/30/22 Susie Starr, DO [address] [place] [address] PCP - General Internal Medicine 12/01/22 12/01/22 Johana Lizarraga MD [address] [place] [address] [place] [address] PCP - General Internal Medicine 12/02/22 12/29/[address] [address] PCP - General Internal Medicine 12/30/22 12/30/22 Phil Rodriguez MD PCP - General Internal Medicine 01/04/23 01/10/[address] [address] PCP - General Internal Medicine 01/11/23 02/01/24 Lizbeth Schilling, FLUORESCENT SOLUTION MIXER [address] [place] [address] PCP - General Internal Medicine 02/02/24 02/11/[address] [address] PCP - General Internal Medicine 02/12/24 Triston Bailey MD [address] [place] [address] [place] [address] Inspector Boiler Cardiovascular Disease 06/10/20 Remedios Warrne PA [address] [place] [address] [place] [address] Cardiology 12/08/21 Umang Corado NP [address] [place] [address] [place] [address] Specialist Cardiology 02/23/22 Chanda Soria NP [address] [place] [address] [place] [address] Cardiology 08/11/22 Loreto Albert MD [address] [place] [address] Internal Medicine 04/13/23 documented as of this encounter
--- OUTSIDE RECORDS SUMMARY | 2024-05-21 15:45 | XMS_ITS | Encounter Summary ---
Author Organization [facility] Address [address] [place] [address] Care Team Providers Care Feather Renovator Name Role Phone Ashley Rosado APRN Primary Care Provider Unav Triston Jaffe MD Unavailable Remedios Warren Unavailable Unavailable Umang Corado NEWSPAPER PHOTOJOURNALIST Unavailable Johana Lizarraga MD Primary Care Provider Chanda Soria NP Unavailable Susie Starr DO Primary Care Provider Joahna Lizarraga MD Primary Care Provider Susie Starr DO Primary Care Provider Phil Rodriguez MD Primary Care Provider Unavail able Susie Starr DO Primary Care Provider Loreto Albert MD Unavailable Lizbeth Schilling APRN Primary Care Provider Susie Starr DO Primary Care Provider Reason for Visit * Reason Onset Date Comments other 11/03/2021 cath? Encounter Details Date Type Department Care Team Description 11/03/2021 Telephone Cardio P[facility] [address] [place] [address] Drive [address] [place] [address] Triston Bailey MD [address] [place] [address] Dr [address]ui [address] [place], [place] [id number] other (cath?) Social History Tobacco Use Types Packs/Day Years [...] 04/13/2023 How often do you attend [facility] or bahai services? More than 4 times per year 04/13/2023 Do you belong to any clubs o r organizations such as mandaen groups, unions, fraternal or athletic groups, or [...] Exposure Response Date Recorded In the last 10 days, have yo u been in contact with someone who was confirmed or suspected to have Coronavirus/COVID-19? No / Unsure 10/27/2021 3:09 PM EDT documented as of this encounter Miscellaneous Notes * Telephone Encounter - Priyanka Benites - 11/04/2021 9:43 AM EDT Pt called asking when are they going to call her to shcedule her cath, I explained to her it was inthe process. Best number to reach her is [phone] * Telephone Encounter - Eren Parrish - 11/03/2021 10:04 AM EDT Patient would like to schedule catherization documented in this encounter Plan of Treatment Not on file documented as of this encounter Visit Diagnoses Not on filedocumented in this encounter Care Teams Feather Renovator Relationship Specialty Start Date End Date Ashley Rosado APRN PCP - General Internal Medicine 09/20/19 06/27/22 Johana Lizarraga MD [address] [place] [address] [place] [address] PCP - General Internal Medicine 06/28/22 11/30/22 Zacharyjames [facility], [address] [place] [address] PCP - General Internal Medicine 12/01/22 12/01/22 Johana Lizarraga MD [address] [place] [address] [place] [address] PCP - General Internal Medicine 12/02/22 12/29/22 Zacharyjames Susie, [address] [place] [address] PCP - General Internal Medicine 12/30/22 12/30/22 Phil Rodriguez MD [address] [place] [address] PCP - General Internal Medicine 01/04/23 01/10/23 ZacharyLisa ramirezmana, [address] [place] [address] PCP - General Internal Medicine 01/11/23 02/01/24 Shakir Lizbeth, [employer] L[employer]UP LINE CORE LAYER [address] [place] [address] PCP - General Internal Medicine 02/02/24 02/11/24 Ro Susie, DO [address] [place] [address] PCP - General Internal Medicine 02/12/24 Triston Bailey MD [address] [place] [address] [place] [address] Train Control Technician Cardiovascular Disease 06/10/20 Remedios Warren, STEPHAN [address] [place] [address] [place] [address] Cardiology 12/08/21 Umang Corado NP [address] [place] [address] [place] [address] Specialist Cardiology 02/23/22 Chanda Soria NP [address] [place] [address] [address] Cardiology 08/11/22 Loreto Albert MD [address] [place] [address] Internal Medicine 04/13/23 documented as of this encounter
--- OUTSIDE RECORDS SUMMARY | 2024-05-21 15:45 | XMS_ITS | Encounter Summary ---
Author Organization [facility] Address [address] [place] [address] Care Team Providers Care Geothermal Powerplant Supervisor Name Role Phone Ashley Rosado APRN Primary Care Provider Triston Franks MD Unavailable [phone] Remedios Warren Unavailable Unavailable Umang Corado LOG HAUL OPERATOR Unavailable [phone] Johana Lizarraga MD Primary Care Provider Chanda Soria NP Unavailable Susie Starr DO Primary Care Provider Johana Lizarraga MD Primary Care Provider Susie Starr DO Primary Care Provider Phil Rodriguez MD Primary Care Provider Unavail able Susie Starr DO Primary Care Provider Loreto Albert MD Unavailable [phone] Lizbeth Schilling APRN Primary Care Provider Susie Starr DO Primary Care Provider [phone] Reason for Visit * Reason Comments E-prescribe Rx Request Encounter Details Date Type Department Care Team Description 03/23/2020 Refill Adult Medicine [address] [address] Ashley Rosado APRN E-prescribe Rx Request Social History Tobacco Use [...] week 04/13/2023 How often do you attend [facility] or buddhism services? More than 4 times per year [...] place to sleep or slept in a long term (including now)? No 04/13/2023 Sex Assigned at Date Recorded Not on file Job Start Date Occupation Industry Not on file Not on file Not on file COVID-19 Exposure Response Date Recorded In the last month, have you been in contact with someone who was confirmed or suspected to have Coronavirus / COVID-19? No / Unsure 02/27/2020 9:49 AM EST documented as of this encounter Miscellaneous Notes * Telephone Encounter - Suzi Ryan M.A. - 03/24/2020 10:36 AM EST Last office visit 02/28/20 last bone density 02/13/19 Lab Results Component Value Date NA 140 12/27/2019 K 5.5 12/27/2019 CO2 26 12/27/2019 CL 109 12/27/2019 BUN 38 12/27/2019 CREAT 1.14 12/27/2019 GLU 114 12/27/2019 CA 9.1 12/27/2019 GFR 47 12/27/2019 * Telephone Encounter - Erika Jackson - 03/23/2020 5:01 PM EST Patient would like script to be: E-PRESCRIBED/FAXED TO PHARMACY WHEN WAS THE PATIENT'S LAST APPOINTMENT IN ADULT MEDICINE? 02/28/20 WHEN WAS THE LAST TIME THE PATIENT SAW THEIR PCP? Same as above Does patient have an upcoming appointment? No (THE MEDICATION REQUESTED IS ON THE MED [...] N/A Patients current insurance carrier is: Payor: [facility] M[facility] / Plan: [facility] [place]0 [facility] [id number] / Product Type: HMO [id number] documented in this encounter Plan of Treatment Not on file documented as of this encounter Visit Diagnoses Not on filedocumented in this encounter Care Teams Geothermal Powerplant Supervisor Relationship Specialty Start Date End Date Ashley Rosado APRN PCP - General Internal Medicine 09/20/19 06/27/22 Johana Lizarraga MD [address] [place] [address] [place] [address] PCP - General Internal Medicine 06/28/22 11/30/22 [facility], [address] [place] [address] PCP - General Internal Medicine 12/01/22 12/01/22 Johana Lizarraga MD [address] [place] [address] [place] [address] PCP - General Internal Medicine 12/02/22 12/29/22 [facility], [address] [place] [address] PCP - General Internal Medicine 12/30/22 12/30/22 Phil Rodriguez MD [address] [place] [address] PCP - General Internal Medicine 01/04/23 01/10/23 [facility], [address] [place] [address] PCP - General Internal Medicine 01/11/23 02/01/24 Lizbeth Schilling, MELISSA [address] [place] [address] PCP - General Internal Medicine 02/02/24 02/11/24 [facility], [address] [place] [address] PCP - General Internal Medicine 02/12/24 Triston Bailey MD [address] [place] [address] [place] [address] Fat Purification Worker Cardiovascular Disease 06/10/20 Remedios Warren PA [address] [facility] [place] [address] Cardiology 12/08/21 Umang Corado NP [address] [facility] [place] [address] Specialist Cardiology 02/23/22 Chanda Soria NP [address] [place] [address] Cardiology 08/11/22 Loreto Albert MD [address] [place] [address] Internal Medicine 04/13/23 documented as of this encounter
--- OUTSIDE RECORDS SUMMARY | 2024-05-21 15:45 | XMS_ITS | Encounter Summary ---
Author Organization [facility] Address [address] [place] [address] Care Team Providers Care Vp Ad Sales West Name Role Phone Phil Rodriguez MD Primary Care Provider Unavail able Ashley Rosado APRN Primary Care Provider Unav ailable Triston Bailey MD Unavailable [phone] Remedios Warren Unavailable Unavailable Umang Corado INSTRUMENTATION MANAGER Unavailable Johana Lizarraga MD Primary Care Provider Chanda Soria INSTRUMENTATION MANAGER Unavailable Susie Starr DO Primary Care Provider Johana Lizarraga MD Primary Care Provider Susie Starr DO Primary Care Provider Phil Rodriguez MD Primary Care Provider Unavail able Susie Starr DO Primary Care Provider Loreto Albert MD Unavailable [phone] Lizbeth Schilling APRN Primary Care Provider Susie Starr DO Primary Care Provider [phone] Reason for Referral * Non DELLA (Routine) - Authorized/Booked Specialty Diagnoses / Procedures Referred By Ana t Referred To Contact General Surgery Procedures REFERRAL TO GENERAL SURGERY Kristy Kent PA-C [address] [place] [address] Gen Surg/[place] [address] [place] [address] [place] [address] Referral ID Status Reason Start Date Expiration Date V isits Requested Visits Authorized [id number] Authorized/B ooked 12/09/2016 12/09/2017 1 1 Encounter Details Date Type Department Care Team Description 12/09/2016 Orders Only Adult Medicine [address] [address] Kristy Kent PA-C Thyroid nodule (Primary Dx); Enlarged lymph node Social History Tobacco Use Types Packs/Day Years [...] do you attend [facility] or quaker services? More than 4 times per year [...] documented as of this encounter Results * (ABNORMAL) THYROID PROFILE W/TSH (03/14/2017 11:52 AM EST) TSH CASCADE 4.27(H) 0.40 - 4.00 uIU/ml 03/14/2017 3:45 PM EST [facility] 03/14/2017 11:5 2 AM EST 03/14/2017 11:52 AM EST Kristy Ketn PA-C LAB [address] * US SOFT TISSUE HEAD/NECK (12/28/2016 4:53 PM EDT) 12/28/2016 5:16 PM EDT Impressions [place] OTHER EXTERNAL - 12/28/2016 5:17 PM EDT IMPRESSION: 1.5 cm solid nodule right mid/lower pole with increased vascularity on color Doppler imaging. Fine-needle aspiration under ultrasound guidance is recommended given size criteria. Narrative AMAIRANI BAZZI OTHER EXTERNAL - 12/28/2016 5:17 PM EDT Thyroid ultrasound: HISTORY: Thyroid nodule reported on 12/07/2016 carotid ultrasound Thyroid gland is normal in size and homogeneous in echotexture with normal vascularity on color Doppler imaging. A solitary well-circumscribed oval solid thyroid nodule measuring 1.5 x 1.0 x 1.1 cm mid/lower pole with increased vascularity on color Doppler imaging. Procedure Note Atul Duarte MD - 12/28/2016 Thyroid ultrasound: HISTORY: Thyroid nodule reported on 12/07/2016 carotid ultrasound Thyroid gland is normal in size and homogeneous in echotexture with normalvascularity on color Doppler imaging. A solitary well-circumscribed oval solid thyroid nodulemeasuring 1.5 x 1.0 x 1.1 cm mid/lower pole with increased vascularity on color Dopplerimaging. IMPRESSION IMPRESSION: 1.5 cm solid nodule right mid/lower pole with increasedvascularity on color Doppler imaging. Fine-needle aspiration under ultrasound guidance isrecommended given size criteria. Kristy Kent PA-C ULTRASOUND AMAIRANI BAZZI OTHER EXTERNAL documented in this encounter Visit Diagnoses Diagnosis Thyroid nodule- Primary Nontoxic uninodular goiter Enlarged lymph node Enlargement of lymph nodes Thyroid nodule Nontoxic uninodular goiter documented in this encounter Care Teams Vp Ad Sales West Relationship Specialty Start Date End Date Phil Rodriguez MD PCP - General Internal Medicine 12/15/14 09/19/19 Ashley Rosado APRN PCP - General Internal Medicine 09/20/19 06/27/22 Johana Lizarraga MD [address] [place] [address] [place] [address] PCP - General Internal Medicine 06/28/22 11/30/[address] [address] PCP - General Internal Medicine 12/01/22 12/01/22 Johana Lizarraga MD [address] [place] [address] [place] [address] PCP - General Internal Medicine 12/02/22 12/29/[address] [address] PCP - General Internal Medicine 12/30/22 12/30/22 Phil Rodriguez MD PCP - General Internal Medicine 01/04/23 01/10/23 [facility] [address] [place] [address] PCP - General Internal Medicine 01/11/23 02/01/24 Lizbeth Schilling APRN [address] [place] [address] PCP - General Internal Medicine 02/02/24 02/11/24 CarrilloSusie ramirez, DO [address] [place] [address] PCP - General Internal Medicine 02/12/24 Triston Bailey MD [address] [place] [address] [place] [address] Benefits Director Cardiovascular Disease 06/10/20 Remedios Warren PA [address] [place] [address] [place] [address] Cardiology 12/08/21 Umang Corado NP [address] [place] [address] [place] [address] Specialist Cardiology 02/23/22 Chanda Soria NP [address] [place] [address] [address] Cardiology 08/11/22 Loreto Albert MD [address] [place] [address] Internal Medicine 04/13/23 documented as of this encounter
--- OUTSIDE RECORDS SUMMARY | 2024-05-21 15:45 | XMS_ITS | Encounter Summary ---
Author Organization [facility] Address [address] [place] [address] Care Team Providers Care Yield Engineer Name Role Phone Ashley Rosado APRN Primary Care Provider Triston Franks MD Unavailable Remedios Warren Unavailable Unavailable Umang Corado BLEACH TESTER Unavailable Johana Lizarraga MD Primary Care Provider Chanda Soria NP Unavailable Susie Starr DO Primary Care Provider Johana Lizarraga MD Primary Care Provider Susie Starr DO Primary Care Provider hPil Rodriguez MD Primary Care Provider Unavail able Susie Starr DO Primary Care Provider Loreto Albert MD Unavailable [phone] Lizbeth Schilling APRN Primary Care Provider [phone] Susie Starr DO Primary Care Provider [phone] Encounter Details Date Type Department Care Team Description 11/17/2021 SCAN Medical Records [address] [place] [address] Social History Tobacco Use Types Packs/Day Years [...] How often do you attend chur or buddhist services? More than 4 times per year 04/13/2023 Do you belong to any clubs o r organizations such as christianity groups, unions, fraternal or athletic groups, or [...] suspected to have Coronavirus/COVID-19? No / Unsure 11/08/2021 11:39 AM EDT documented as of this encounter Plan of Treatment Not on file documented as of this encounter Visit Diagnoses Not on filedocumented in this encounter Care Teams Yield Engineer Relationship Specialty Start Date End Date Ashley Rosado APRN PCP - General Internal Medicine 09/20/19 06/27/22 Johana Lizarraga MD [address] [place] [address] [place] [address] PCP - General Internal Medicine 06/28/22 11/30/22 Susie Starr DO [address] [place] [address] PCP - General Internal Medicine 12/01/22 12/01/22 Johana Lizarraga MD [address] [place] [address] [place] [address] PCP - General Internal Medicine 12/02/22 12/29/22 [facility], [address] [place] [address] PCP - General Internal Medicine 12/30/22 12/30/22 Phil Rodriguez MD [address] [place] [address] PCP - General Internal Medicine 01/04/23 01/10/23 [facility] [address] [place] [address] PCP - General Internal Medicine 01/11/23 02/01/24 Lizbeth Schilling, EQUIPMENT OPERATOR WAGE HAND [address] [place] [address] PCP - General Internal Medicine 02/02/24 02/11/24 [facility] [address] [place] [address] PCP - General Internal Medicine 02/12/24 Triston Bailey MD [address] [place] [address] [place] [address] Sports Recruiter Cardiovascular Disease 06/10/20 Remedios Warren PA [address] [place] [address] Cardiology 12/08/21 Umang Corado NP [address] [place] [address] Specialist Cardiology 02/23/22 Chanda Soria NP [address] [place] [address] Cardiology 08/11/22 Loreto Albert MD [address] [place] [address] Internal Medicine 04/13/23 documented as of this encounter
--- OUTSIDE RECORDS SUMMARY | 2024-05-21 15:45 | XMS_ITS | Encounter Summary ---
Author Organization [facility] Address [address] [place] [address] Care Team Providers Care Deputy United [place] Marshal Name Role Phone Ashley Rosado APRN Primary Care Provider UnaTriston Kapadia MD Unavailable [phone] Remedios Warren Unavailable Unavailable Umang Corado TANK ASSEMBLER Unavailable Johana Lizarraga MD Primary Care Provider Chanda Soria TANK ASSEMBLER Unavailable Susie Starr DO Primary Care Provider Johana Lizarraga MD Primary Care Provider Susie Starr DO Primary Care Provider Phil Rodriguez MD Primary Care Provider Unavail able Susie Starr DO Primary Care Provider Loreto Albert MD Unavailable [phone] Lizbeth Schilling APRN Primary Care Provider Susie Starr DO Primary Care Provider [phone] Encounter Details Date Type Department Care Team Description 10/06/2021 Electrical Instrumentation Technician Report Medical Records [address] [place] [address] [place] [address] [facility] [address] [place] [address] Social History Tobacco Use Types Packs/Day Years [...] 04/13/2023 How often do you attend [facility] or muslim services? More than 4 times per year 04/13/2023 Do you belong to any clubs o r organizations such as yazidi groups, unions, fraternal or athletic groups, or [...] suspected to have Coronavirus/COVID-19? No / Unsure 10/08/2021 1:28 PM EDT documented as of this encounter Plan of Treatment Not on file documented as of this encounter Visit Diagnoses Not on filedocumented in this encounter Care Teams Deputy United [place] Marshal Relationship Specialty Start Date End Date Ashley Rosado APRN PCP - General Internal Medicine 09/20/19 06/27/22 Johana Lizarraga MD [address] [place] [address] [place] [address] PCP - General Internal Medicine 06/28/22 11/30/22 [facility], [address] [place] [address] PCP - General Internal Medicine 12/01/22 12/01/22 Johana Lizarraga [place] [address] PCP - General Internal Medicine 12/02/22 12/29/22 [facility], [address] [place] [address] PCP - General Internal Medicine 12/30/22 12/30/22 Phil Rodriguez MD [address] [place] [address] PCP - General Internal Medicine 01/04/23 01/10/23 [facility], [address] [place] [address] PCP - General Internal Medicine 01/11/23 02/01/24 Lizbeth Schilling, MELISSA [address] [place] [address] PCP - General Internal Medicine 02/02/24 02/11/24 [facility], [address] [place] [address] PCP - General Internal Medicine 02/12/24 Triston Bailey MD [address] [place] [address] [place] [address] Experimental Worker Cardiovascular Disease 06/10/20 Remedios Warren PA [address] [place] [address] Cardiology 12/08/21 Umang Corado NP [address] [place] [address] [address] [place] [address] Specialist Cardiology 02/23/22 Chanda Soria NP [address] [place] [address] Cardiology 08/11/22 Loreto Albert MD [address] [place] [address] Internal Medicine 04/13/23 documented as of this encounter
--- OUTSIDE RECORDS SUMMARY | 2024-05-21 15:45 | XMS_ITS | Encounter Summary ---
Author Organization [facility] Address [address] [place] [address] Care Team Providers Care Radiography Technician Name Role Phone Triston Bailey MD Unavailable Remedios Warren Unavailable Unavailable Umang Corado TELEGRAPH REPEATER INSTALLER Unavailable Chanda Soria NP Unavailable [phone] Susie Starr DO Primary Care Provider Loreto Albert MD Unavailable [phone] Lizbeth Schilling APRN Primary Care Provider [phone] Susie Starr DO Primary Care Provider [phone] Encounter Details Date Type Department Care Team Description 06/28/2023 Orders Only Adult Medicine [address] [id number] Lizbeth Schilling APRN [address] [place] [address] Social History Tobacco Use Types Packs/Day Years [...] How often do you attend chur or congregation services? More than 4 times per year 04/13/2023 Do you belong to any clubs o r organizations such as alevism groups, unions, fraternal or athletic groups, or [...] on filedocumented in this encounter Care Teams Radiography Technician Relationship Specialty Start Date End Date Suise Starr, [address] [place] [address] PCP - General Internal Medicine 01/11/23 02/01/24 Lizbeth Schilling APRN [address] [place] [address] PCP - General Internal Medicine 02/02/24 02/11/24 Susie Starr, [address] [place] [address] PCP - General Internal Medicine 02/12/24 Triston Bailey MD [address] [place] [address] [place] [address] Extractor Machine Operator Cardiovascular Disease 06/10/20 Remedios Warren PA [address] [place] [address] [place] [address] Cardiology 12/08/21 Umang Corado NP [address] [place] [address] [place] [address] Specialist Cardiology 02/23/22 Chanda Soria NP [address] [place] [address] [place] [address] Cardiology 08/11/22 Loreto Albert MD [address] [place] [address] Internal Medicine 04/13/23 documented as of this encounter
--- OUTSIDE RECORDS SUMMARY | 2024-05-21 15:45 | XMS_ITS | Encounter Summary ---
Author Organization [facility] Address [address] [place] [address] Care Team Providers Care Backup Administrator Name Role Phone Phil Rodriguez MD Primary Care Provider Unavail able Ashley Rosado APRN Primary Care Provider Unav ailable Triston Bailey MD Unavailable Remedios Warren PA Unavailable Unavailable Umang Corado WASTE WATER PLANT OPERATOR Unavailable [phone] Johana Lizarraga MD Primary Care Provider Chanda Soria WASTE WATER PLANT OPERATOR Unavailable Susie Starr DO Primary Care Provider Johana Lizarraga MD Primary Care Provider Susie Starr DO Primary Care Provider Phil Rodriguez MD Primary Care Provider Unavail able Susie Starr DO Primary Care Provider [phone] Loreto Albert MD Unavailable [phone] Lizbeth Schilling APRN Primary Care Provider [phone] Susie Starr DO Primary Care Provider [phone] Encounter Details Date Type Department Care Team Description 02/07/2019 [facility] Medical Records [address] [place] [address] Abstract, Provider Social History Tobacco Use Types [...] week 04/13/2023 How often do you attend [facility] or restorationist services? More than 4 times per year 04/13/2023 Do you belong to any clubs o r organizations such as sabianist groups, unions, fraternal or athletic groups, or [...] place to sleep or slept in a mcc (including now)? No 04/13/2023 Sex Assigned at Date Recorded Not on file Job Start Date Occupation Industry Not on file Not on file Not on file documented as of this encounter Plan of Treatment Not on file documented as of this encounter Visit Diagnoses Not on filedocumented in this encounter Care Teams Backup Administrator Relationship Specialty Start Date End Date Phil Rodriguez MD PCP - General Internal Medicine 12/15/14 09/19/19 Ashley Rosado APRN PCP - General Internal Medicine 09/20/19 06/27/22 Johana Lizarraga MD [address] [place] [address] [place] [address] PCP - General Internal Medicine 06/28/22 11/30/22 Susie Starr, DO [address] [place] [address] [place] [address] PCP - General Internal Medicine 12/01/22 12/01/22 Johana Lizarraga MD [address] [place] [address] [place] [address] PCP - General Internal Medicine 12/02/22 12/29/[address] [address] PCP - General Internal Medicine 12/30/22 12/30/22 Phil Rodriguez MD PCP - General Internal Medicine 01/04/23 01/10/[address] [address] PCP - General Internal Medicine 01/11/23 02/01/24 Lizbeth Schilling, CROP RANCH HAND [address] [place] [address] PCP - General Internal Medicine 02/02/24 02/11/[address] [address] PCP - General Internal Medicine 02/12/24 Triston Bailey MD [address] [place] [address] [place] [address] Physician Credentialing Specialist Cardiovascular Disease 06/10/20 Remedios Warren PA [address] [place] [address] [place] [address] Cardiology 12/08/21 Umang Corado NP [address] [place] [address] [place] [address] Specialist Cardiology 02/23/22 Chanda Soria NP [address] [place] [address] [place] [address] Cardiology 08/11/22 Loreto Albert MD [address] [place] [address] Internal Medicine 04/13/23 documented as of this encounter
--- OUTSIDE RECORDS SUMMARY | 2024-05-21 15:45 | XMS_ITS | Encounter Summary ---
Author Organization [facility] Address [address] [place] [address] Care Team Providers Care Superintendent Renting Managing Name Role Phone Ashley Rosado APRN Primary Care Provider Unav Triston Jaffe MD Unavailable [phone] Remedios Warren Unavailable Unavailable Umang Corado DINING SERVICES MANAGER Unavailable Johana Lizarraga MD Primary Care Provider Chanda Soria NP Unavailable Susie Starr DO Primary Care Provider Johana Lizarraga MD Primary Care Provider Susie Starr DO Primary Care Provider Phil Rodriguez MD Primary Care Provider Unavail able Susie Starr DO Primary Care Provider Loreto Albert MD Unavailable [phone] Lizbeth Schilling APRN Primary Care Provider Susie Starr DO Primary Care Provider [phone] Encounter Details Date Type Department Care Team Description 11/28/2019 Orders Only Medical Records [address] [place] [address] Phil Rodriguez MD Social History Tobacco Use [...] often do you attend [facility] or quaker services? More than 4 times per year 04/13/2023 Do you belong to any clubs o r organizations such as yarsanism groups, unions, fraternal or athletic groups, or [...] place to sleep or slept in a retirement (including now)? No 04/13/2023 Sex Assigned at Date Recorded Not on file Job Start Date Occupation Industry Not on file Not on file Not on file documented as of this encounter Plan of Treatment Not on file documented as of this encounter Procedures Procedure Name Priority Date/Time Associated Diagnosis Comments OUTSIDE MAMMO Routine 11/11/2019 documented in this encounter Results * OUTSIDE MAMMO (11/11/2019) Phil Rodriguez MD RADIOLOGY documented in this encounter Visit Diagnoses Not on filedocumented in this encounter Care Teams Superintendent Renting Managing Relationship Specialty Start Date End Date Ashley Rosado APRN PCP - General Internal Medicine 09/20/19 06/27/22 Johana Lizarraga MD [address] [place] [address] [place] [address] PCP - General Internal Medicine 06/28/22 11/30/22 [facility], [address] [place] [address] PCP - General Internal Medicine 12/01/22 12/01/22 Johana Lizarraga MD [place] [address] PCP - General Internal Medicine 12/02/22 12/29/22 [facility], [address] [place] [address] PCP - General Internal Medicine 12/30/22 12/30/22 Phil Rodriguez MD [address] [place] [address] PCP - General Internal Medicine 01/04/23 01/10/23 [facility], [address] [place] [address] PCP - General Internal Medicine 01/11/23 02/01/24 Lizbeth Schilling, HORSE BREEDER [address] [place] [address] PCP - General Internal Medicine 02/02/24 02/11/24 [facility], [address] [place] [address] PCP - General Internal Medicine 02/12/24 Triston Bailey [place] [address] Wildlife Protector Cardiovascular Disease 06/10/20 Remedios Warren PA [address] [place] [address] Cardiology 12/08/21 Umang Corado NP [address] [place] [address] Dr [address] [place] [address] Specialist Cardiology 02/23/22 Chanda Soria NP [address] [place] [address] [address] Cardiology 08/11/22 Loreto Albert MD [address] [place] [address] Internal Medicine 04/13/23 documented as of this encounter
--- OUTSIDE RECORDS SUMMARY | 2024-05-21 15:45 | XMS_ITS | Encounter Summary ---
Author Organization [facility] Address [address] [place] [address] Care Team Providers Care Hot Mix Operator Name Role Phone Phil Rodriguez MD Primary Care Provider Unavail able Ashley Rosado APRN Primary Care Provider Unav ailable Triston Bailey MD Unavailable [phone] Remedios Warren PA Unavailable Unavailable Umang Corado NP Unavailable Johana Lizarraga MD Primary Care Provider Chanda Soria SIDE TRIMMER Unavailable Susie Starr DO Primary Care Provider Johana Lizarraga MD Primary Care Provider Susie Starr DO Primary Care Provider Phil Rodriguez MD Primary Care Provider Unavail able Susie Starr DO Primary Care Provider [phone] Loreto Albert MD Unavailable [phone] Lizbeth Schilling APRN Primary Care Provider [phone] Susie Starr DO Primary Care Provider [phone] Encounter Details Date Type Department Care Team Description 02/06/2019 Student Success Coach Report Medical Records [address] [place] [address] Philip Anthony MD Social History Tobacco Use Types Packs/Day [...] week 04/13/2023 How often do you attend [facility] or denominational services? More than 4 times [...] on filedocumented in this encounter Care Teams Hot Mix Operator Relationship Specialty Start Date End Date Phil Rodriguez MD PCP - General Internal Medicine 12/15/14 09/19/19 Ashley Rosado APRN PCP - General Internal Medicine 09/20/19 06/27/22 Johana Lizarraga MD [address] [place] [address] Dr [place], [place] [address] PCP - General Internal Medicine 06/28/22 11/30/22 Susie Starr, DO [address] [place] [address] PCP - General Internal Medicine 12/01/22 12/01/22 Johana Lizarraga MD [address] [place] [address] [place] [address] PCP - General Internal Medicine 12/02/22 12/29/22 [facility] [address] [place] [address] PCP - General Internal Medicine 12/30/22 12/30/22 Phil Rodriguez MD PCP - General Internal Medicine 01/04/23 01/10/[address] [address] PCP - General Internal Medicine 01/11/23 02/01/24 Lizbeth Schilling, HOD CARRIER [address] [place] [address] PCP - General Internal Medicine 02/02/24 02/11/[address] [address] PCP - General Internal Medicine 02/12/24 Triston Bailey MD [address] [place] [address] [place] [address] Voice Writing Reporter Cardiovascular Disease 06/10/20 Remedios Warren PA [address] [facility] [place] [address] Cardiology 12/08/21 Umang Corado NP [address] [place] [address] [place] [address] Specialist Cardiology 02/23/22 Chanda Soria NP [address] [place] [address] [place] [address] Cardiology 08/11/22 Loreto Albert MD [address] [place] [address] Internal Medicine 04/13/23 documented as of this encounter
--- OUTSIDE RECORDS SUMMARY | 2024-05-21 15:45 | XMS_ITS | Encounter Summary ---
Author Organization [facility] Address [address] [place] [address] Care Team Providers Care Submarine Diver Name Role Phone Triston Bailey MD Unavailable Remedios Warren Unavailable Unavailable Umang Corado GOLF COURSE DESIGNER Unavailable [phone] Chanda Soria NP Unavailable [phone] Susie Starr DO Primary Care Provider Loreto Albert MD Unavailable [phone] Lizbeth Schilling APRN Primary Care Provider [phone] Susie Starr DO Primary Care Provider Reason for Visit * Reason Comments E-prescribe Rx Request Encounter Details Date Type Department Care Team Description 06/08/2023 Refill Adult Medicine [facility] [address] [place] [address] Johana Lizarraga MD [address] [place] [phone] E-prescribe Rx Request Social History Tobacco Use [...] How often do you attend [facility] or sikh services? More than 4 times per year 04/13/2023 Do you belong to any clubs o r organizations such as restorationism groups, unions, fraAURSOS or athletic groups, or school groups? No [...] Telephone Encounter - Silvia Rose M.A. - 06/08/2023 10:33 AM EST Date of last office visit was 04/05/23. Pended appt for 06/09/23 Lab Results Component Value Date NA 142 04/05/2023 K 5.0 04/05/2023 CO2 26 04/05/2023 CL 110 04/05/2023 BUN 29 04/05/2023 CREAT 1.09 04/05/2023 GLU 96 04/05/2023 CA 10.0 04/05/2023 GFR 53 04/05/2023 * Telephone Encounter - Norman Lester - 06/08/2023 10:14 AM EST Patient would like script to be: E-PRESCRIBED/FAXED TO PHARMACY WHEN WAS THE PATIENT'S LAST APPOINTMENT IN ADULT MEDICINE? 04-05-23 WHEN WAS THE LAST TIME THE PATIENT SAW THEIR PCP? Same as above Does patient have an upcoming appointment? Yes 06-09-23 (THE MEDICATION REQUESTED IS ON THE MED [...] N/A Patients current insurance carrier is: Payor: [facility] MCR / Plan: Meta $0 [facility] [id number] / Product Type: HMO [id number] documented in this encounter Plan of Treatment Not on file documented as of this encounter Visit Diagnoses Not on filedocumented in this encounter Care Teams Submarine Diver Relationship Specialty Start Date End Date Susie Starr, [address] [place] [address] PCP - General Internal Medicine 01/11/23 02/01/24 Lizbeth Schilling APRN [address] [place] [address] PCP - General Internal Medicine 02/02/24 02/11/24 Susie Starr DO [address] [place] [address] PCP - General Internal Medicine 02/12/24 Triston Bailey MD [address] [place] [address] [place] [address] Director Enterprise Sales Cardiovascular Disease 06/10/20 Remedios Warren PA [address] [place] [address] [place] [address] Cardiology 12/08/21 Umang Corado NP [address] [place] [address] [place] [address] Specialist Cardiology 02/23/22 Chanda Soria NP [address] [place] [address] [place] [address] Cardiology 08/11/22 Loreto Albert MD [address] [place] [address] Internal Medicine 04/13/23 documented as of this encounter
--- OUTSIDE RECORDS SUMMARY | 2024-05-21 15:45 | XMS_ITS | Encounter Summary ---
Author Organization [facility] Address [address] [place] [address] Care Team Providers Care Office Administration Name Role Phone Triston Bailey MD Unavailable [phone] Remedios Warren Unavailable Unavailable Umang Corado AUTO WINDER Unavailable [phone] Chanda Soria NP Unavailable [phone] Susie Starr DO Primary Care Provider [phone] Loreto Albert MD Unavailable [phone] Lizbeth Schilling APRN Primary Care Provider [phone] Susie Starr DO Primary Care Provider [phone] Encounter Details Date Type Department Care Team Description 06/08/2023 Machine Etcher Report Medical Records [address] [place] [address] Long Metz MD Social History Tobacco Use Types Packs/Day [...] do you attend [facility] or rastafari services? More than 4 times per year 04/13/2023 Do you belong to any clubs o r organizations such as anabaptism groups, unions, fraternal or athletic groups, or [...] on filedocumented in this encounter Care Teams Office Administration Relationship Specialty Start Date End Date Susie Starr, [address] [place] [address] PCP - General Internal Medicine 01/11/23 02/01/24 Lizbeth Schilling APRN [address] [place] [address] PCP - General Internal Medicine 02/02/24 02/11/24 Susie Starr DO [address] [place] [address] PCP - General Internal Medicine 02/12/24 Triston Bailey MD [address] [place] [address] [place] [address] Television Receiver Analyzer Cardiovascular Disease 06/10/20 Remedios Warren PA [address] [place] [address] Dr Hui [address] [place] [address] Cardiology 12/08/21 Umang Corado NP [address] [place] [address] Dr [address] [place] [address] Specialist Cardiology 02/23/22 Chanda Soria NP [address] [place] [address] [address] Cardiology 08/11/22 Loreto Albert MD [address] [place] [address] Internal Medicine 04/13/23 documented as of this encounter
--- OUTSIDE RECORDS SUMMARY | 2024-05-21 15:45 | XMS_ITS | Encounter Summary ---
Author Organization [facility] Address [address] [place] [address] Care Team Providers Care Fringe Maker Name Role Phone Phil Rodriguez MD Primary Care Provider Unavail able Tony Rodriguez MD Primary Care Provider Unavail able Phil Rodriguez MD Primary Care Provider Unavail able Ashley Rosado APRN Primary Care Provider Unav ailable Triston Bailey MD Unavailable [phone] Remedios Warren Unavailable Unavailable Umang Corado MARINE INSURANCE CLAIM EXAMINER Unavailable Johana Lizarraga MD Primary Care Provider Chanda Soria MARINE INSURANCE CLAIM EXAMINER Unavailable Susie Starr DO Primary Care Provider [phone] Johana Lizarraga MD Primary Care Provider Susie Starr DO Primary Care Provider [phone] Phil Rodriguez MD Primary Care Provider Unavail able Susie Starr DO Primary Care Provider [phone] Loreto Albert MD Unavailable [phone] Lizbeth Schilling APRN Primary Care Provider Susie Satrr DO Primary Care Provider [phone] Encounter Details Date Type Department Care Team Description 07/07/2010 Historian Dramatic Arts Report Medical Records [address] [place] [address] Alok Keith MD Social History Tobacco Use [...] How often do you attend [facility] or jew services? More than 4 times per year 04/13/2023 Do you belong to any clubs o r organizations such as confucianism groups, unions, fraternal or athletic groups, or [...] place to sleep or slept in a nursing home (including now)? No 04/13/2023 Sex Assigned at Date Recorded Not on file Job Start Date Occupation Industry Not on file Not on file Not on file documented as of this encounter Plan of Treatment Not on file documented as of this encounter Visit Diagnoses Not on filedocumented in this encounter Care Teams Fringe Maker Relationship Specialty Start Date End Date Phil Rodriguez MD PCP - General 03/07/05 12/04/14 Tony Rodriguez MD PCP - General Internal Medicine 12/05/14 12/14/14 Phil Rodriguez MD PCP - General Internal Medicine 12/15/14 09/19/19 Ashley Rosado APRN PCP - General Internal Medicine 09/20/19 06/27/22 Johana Lizarraga MD [address] [place] [address] [place] [address] PCP - General Internal Medicine 06/28/22 11/30/22 [facility], [address] [place] [address] PCP - General Internal Medicine 12/01/22 12/01/22 Johana Lizarraga MD [address] [place] [address] [place] [address] PCP - General Internal Medicine 12/02/22 12/29/22 [facility] [address] [place] [address] PCP - General Internal Medicine 12/30/22 12/30/22 Phil Rodriguez MD PCP - General Internal Medicine 01/04/23 01/10/23 [facility], [address] [place] [address] PCP - General Internal Medicine 01/11/23 02/01/24 Lizbeth Schilling, BOTTLE ASSEMBLER [address] [place] [address] PCP - General Internal Medicine 02/02/24 02/11/24 [facility], [address] [place] [address] PCP - General Internal Medicine 02/12/24 Triston Bailey MD [address] [place] [address] [place] [address] Investment Counselor Cardiovascular Disease 06/10/20 Remedios Warren PA [address] [facility] [place] [address] Cardiology 12/08/21 Umang Corado NP [address] [place] [address] [place] [address] Specialist Cardiology 02/23/22 Chanda Soria NP [address] [place] [address] [place] [address] Cardiology 08/11/22 Loreto Albert MD [address] [place] [address] Internal Medicine 04/13/23 documented as of this encounter
--- OUTSIDE RECORDS SUMMARY | 2024-05-21 15:45 | XMS_ITS | Encounter Summary ---
Author Organization [facility] Address [address] [place] [address] Care Team Providers Care Strategic Accounts Manager Name Role Phone Phil Rodriguez MD Primary Care Provider Unavail able Ashley Rosado APRN Primary Care Provider Unav ailable Triston Bailey MD Unavailable [phone] Remedios Warren PA Unavailable Unavailable Umang Corado PULLING UNIT OPERATOR Unavailable [phone] Johana Lizarraga MD Primary Care Provider Chanda Soria PULLING UNIT OPERATOR Unavailable Susie Starr DO Primary Care Provider [phone] Johana Lizarraga MD Primary Care Provider Susie Starr DO Primary Care Provider Phil Rodriguez MD Primary Care Provider Unavail able Susie Starr DO Primary Care Provider [phone] Loreto Albert MD Unavailable [phone] Lizbeth Schilling APRN Primary Care Provider [phone] Susie Starr DO Primary Care Provider Reason for Visit * Reason Onset Date Comments medication problems 06/04/2019 Encounter Details Date Type Department Care Team Description 06/04/2019 Telephone Adult Medicine [facility] [address] [place] [address] Phil Rodriguez MD medication problems Social History [...] week 04/13/2023 How often do you attend [facility] or spiritism services? More than 4 times per year 04/13/2023 Do you belong to any clubs o r organizations such as moravian groups, unions, fraternal or athletic groups, or [...] Telephone Encounter - Silvia Rose M.A. - 06/04/2019 1:38 PM EST Spoke with the pt. [employer] printed . The pt is due for refill on 06/06/19 Date of last office visit was 03/25/19 Controlled substance contract and last issue date of medication reviewed. Patient is due for medication on 06/06/19. Lab Results Component Value Date URBENZO NONE DETECTED 03/25/2019 UROPIATES NONE DETECTED 03/25/2019 URBARBITUATE NONE DETECTED 03/25/2019 PAINAMPHETAM NONE DETECTED 03/25/2019 URAMPHETAMIN NEGATIVE 03/19/2018 PAINCOCAINE NONE DETECTED 03/25/2019 URCOCAINE NEGATIVE 03/19/2018 PAINCANNABIN NONE DETECTED 03/25/2019 URMARIJUANA NEGATIVE 03/19/2018 * Telephone Encounter - Bailey Silas - 06/04/2019 1:31 PM EST Who is calling? The patient Name of the medication Lorazepam What is the specific problem or interaction? Patient is out of medication. She states that this waslast filled on the of the month, Not the . Asking for script to be refilled. If the patient is having a problem with taking the med - how long has the problem been going on? N/A documented in this encounter Plan of Treatment Not on file documented as of this encounter Visit Diagnoses Not on filedocumented in this encounter Care Teams Strategic Accounts Manager Relationship Specialty Start Date End Date Phil Rodriguez MD PCP - General Internal Medicine 12/15/14 09/19/19 Ashley Rosado APRN PCP - General Internal Medicine 09/20/19 06/27/22 Johana Lizarraga MD [address] [place] [address] [place] [address] PCP - General Internal Medicine 06/28/22 11/30/22 Susie Starr, DO [address] [place] [address] PCP - General Internal Medicine 12/01/22 12/01/22 Johana Lizarraga MD [address] [place] [address] [place] [address] PCP - General Internal Medicine 12/02/22 12/29/22 Susie Starr, DO [address] [place] [address] PCP - General Internal Medicine 12/30/22 12/30/22 Phil Rodriguez MD PCP - General Internal Medicine 01/04/23 01/10/[address] [address] PCP - General Internal Medicine 01/11/23 02/01/24 Lizbeth Schilling, EQUIPMENT DETAILER [address] [place] [address] PCP - General Internal Medicine 02/02/24 02/11/[address] [address] PCP - General Internal Medicine 02/12/24 Triston Bailey MD [address] [place] [address] [place] [address] Residential Treatment Counselor Cardiovascular Disease 06/10/20 Remedios Warren, PA [address] [place] [address] [place] [address] Cardiology 12/08/21 Umang Corado NP [address] [place] [address] [place] [address] Specialist Cardiology 02/23/22 Chanda Soria NP [address] [place] [address] [address] Cardiology 08/11/22 Loreto Albert MD [address] [place] [address] Internal Medicine 04/13/23 documented as of this encounter
--- OUTSIDE RECORDS SUMMARY | 2024-05-21 15:45 | XMS_ITS | Encounter Summary ---
Author Organization [facility] Address [address] [place] [address] Care Team Providers Care Director Insurance Name Role Phone Triston Bailey MD Unavailable [phone] Remedios Warren Unavailable Unavailable Umang Corado PHOTOGRAPH TINTER Unavailable [phone] Chanda Soria NP Unavailable [phone] Susie Starr DO Primary Care Provider Loreto Albert MD Unavailable [phone] Lizbeth Schilling APRN Primary Care Provider [phone] Susie Starr DO Primary Care Provider [phone] Encounter Details Date Type Department Care Team Description 06/26/2023 Health Information Assistant Report Medical Records [address] [place] [address] Judy Mesa Social History Tobacco Use Types Packs/Day Years [...] How often do you attend chur or islam services? More than 4 times per year [...] filedocumented in this encounter Care Teams Director Insurance Relationship Specialty Start Date End Date Susie Starr, [address] [place] [address] PCP - General Internal Medicine 01/11/23 02/01/24 Lizbeth Schilling APRN [address] [place] [address] PCP - General Internal Medicine 02/02/24 02/11/24 Susie Starr DO [address] [place] [address] PCP - General Internal Medicine 02/12/24 Triston Bailey MD [address] [place] [address] [place] [address] Poultry Cleaner Cardiovascular Disease 06/10/20 Remedios Warren PA [address] [place] [address] Dr [address] [place] [address] Cardiology 12/08/21 Umang Corado NP [address] [place] [address] Dr Hui [address] [place] [address] Specialist Cardiology 02/23/22 Chanda Soria NP [address] [place] [address] [address] Cardiology 08/11/22 Loreto Albert MD [address] [place] [address] Internal Medicine 04/13/23 documented as of this encounter
--- OUTSIDE RECORDS SUMMARY | 2024-05-21 15:45 | XMS_ITS | Encounter Summary ---
Author Organization [facility] Address [address] [place] [address] Care Team Providers Care Radiotelegraphist Name Role Phone Phil Rodriguez MD Primary Care Provider Unavail able Ashley Rosado APRN Primary Care Provider Unav ailable Triston Bailey MD Unavailable [phone] Remedios Warren PA Unavailable Unavailable Umang Corado IT CONSULTING DIRECTOR Unavailable Johana Lizarraga MD Primary Care Provider Chanda Soria IT CONSULTING DIRECTOR Unavailable Susie Starr DO Primary Care Provider Johana Lizarraga MD Primary Care Provider Susie Starr DO Primary Care Provider Phil Rodriguez MD Primary Care Provider Unavail able Susie Starr DO Primary Care Provider [phone] Loreto Albert MD Unavailable [phone] Lizbeth Schilling APRN Primary Care Provider [phone] Susie Starr DO Primary Care Provider [phone] Encounter Details Date Type Department Care Team Description 01/09/2017 Business Doc Medical Records [address] [place] [address] Abstract, Provider Social History Tobacco Use Types [...] attend [facility] or religion services? More than 4 times per year 04/13/2023 Do you belong to any clubs o r organizations such as latter day groups, unions, fraternal or athletic groups, or [...] place to sleep or slept in a snf (including now)? No 04/13/2023 Sex Assigned at Date Recorded Not on file Job Start Date Occupation Industry Not on file Not on file Not on file documented as of this encounter Plan of Treatment Not on file documented as of this encounter Visit Diagnoses Not on filedocumented in this encounter Care Teams Radiotelegraphist Relationship Specialty Start Date End Date Phil Rodriguez MD PCP - General Internal Medicine 12/15/14 09/19/19 Ashley Rosado APRN PCP - General Internal Medicine 09/20/19 06/27/22 Johana Lizarraga MD [address] [place] [address] [place] [address] PCP - General Internal Medicine 06/28/22 11/30/22 Susie Starr, DO [address] [place] [address] PCP - General Internal Medicine 12/01/22 12/01/22 Johana Lizarraga MD [address] [place] [address] [place] [address] PCP - General Internal Medicine 12/02/22 12/29/[address] [address] PCP - General Internal Medicine 12/30/22 12/30/22 Phil Rodriguez MD PCP - General Internal Medicine 01/04/23 01/10/[address] [address] PCP - General Internal Medicine 01/11/23 02/01/24 Lizbeth Schilling, SKINNING MACHINE FEEDER [address] [place] [address] PCP - General Internal Medicine 02/02/24 02/11/[address] [address] PCP - General Internal Medicine 02/12/24 Triston Bailey MD [address] [place] [address] [place] [address] Energy Conservation Representative Cardiovascular Disease 06/10/20 Remedios Warren PA [address] [place] [address] [place] [address] Cardiology 12/08/21 Umang Corado NP [address] [place] [address] [place] [address] Specialist Cardiology 02/23/22 Chanda Soria NP [address] [place] [address] [place] [address] Cardiology 08/11/22 Loreto Albert MD 4 [place] [address] Internal Medicine 04/13/23 documented as of this encounter
--- OUTSIDE RECORDS SUMMARY | 2024-05-21 15:45 | XMS_ITS | Encounter Summary ---
Author Organization [facility] Address [address] [place] [address] Care Team Providers Care Developer Prover Mechanical Name Role Phone Phil Rodriguez MD Primary Care Provider Unavail able Tony Rodriguez MD Primary Care Provider Unavail able Phil Rodriguez MD Primary Care Provider Unavail able Ashley Rosado APRN Primary Care Provider Unav ailable Triston Bailey MD Unavailable [phone] Remedios Warren Unavailable Unavailable Umang Corado PUBLIC RELATIONS COORDINATOR Unavailable [phone] Johana Lizarraga MD Primary Care Provider Chanda Soria PUBLIC RELATIONS COORDINATOR Unavailable Susie Starr DO Primary Care Provider [phone] Johana Lizarraga MD Primary Care Provider Susie Starr DO Primary Care Provider [phone] Phil Rodriguez MD Primary Care Provider Unavail able Susie Starr DO Primary Care Provider [phone] Loreto Albert MD Unavailable [phone] Lizbeth Schilling APRN Primary Care Provider Susie Starr DO Primary Care Provider [phone] Encounter Details Date Type Department Care Team Description 08/05/2010 Hospital Medical Records [address] [place] [address] Shawn Farmer Social History Tobacco Use Types Packs/Day Years [...] How often do you attend chur or episcopalian services? More than 4 times per year [...] place to sleep or slept in a penitentiary (including now)? No 04/13/2023 Sex Assigned at Date Recorded Not on file Job Start Date Occupation Industry Not on file Not on file Not on file documented as of this encounter Plan of Treatment Not on file documented as of this encounter Visit Diagnoses Not on filedocumented in this encounter Care Teams Developer Prover Mechanical Relationship Specialty Start Date End Date Phil Rodriguez MD PCP - General 03/07/05 12/04/14 Tony Rodriguez MD PCP - General Internal Medicine 12/05/14 12/14/14 Phil Rodriguez MD PCP - General Internal Medicine 12/15/14 09/19/19 Ashley Rosado APRN PCP - General Internal Medicine 09/20/19 06/27/22 Johana Lizarraga MD [address] [place] [address] [place] [address] PCP - General Internal Medicine 06/28/22 11/30/22 [facility], [address] [place] [address] PCP - General Internal Medicine 12/01/22 12/01/22 Johana Lizarraga MD [address] [place] [address] [place] [address] PCP - General Internal Medicine 12/02/22 12/29/22 [facility] [address] [place] [address] PCP - General Internal Medicine 12/30/22 12/30/22 Phil Rodriguez MD PCP - General Internal Medicine 01/04/23 01/10/23 [facility], [address] [facility] [place] [address] PCP - General Internal Medicine 01/11/23 02/01/24 Lizbeth Schilling, MELISSA [address] [place] [address] PCP - General Internal Medicine 02/02/24 02/11/24 [facility], [address] [facility] [place] [address] PCP - General Internal Medicine 02/12/24 Triston Bailey MD [address] [place] [address] [place] [address] Asset Manager Cardiovascular Disease 06/10/20 Remedios Warren PA [address] [place] [address] [place] [address] Cardiology 12/08/21 Umang Corado NP [address] [place] [address] [address] [place] [address] Specialist Cardiology 02/23/22 Chanda Soria NP [address] [place] [address] Cardiology 08/11/22 Loreto Albert MD [address] [place] [address] Internal Medicine 04/13/23 documented as of this encounter
--- OUTSIDE RECORDS SUMMARY | 2024-05-21 15:45 | XMS_ITS | Encounter Summary ---
Author Organization [facility] Address [address] [place] [address] Care Team Providers Care Operating Room Assistant Name Role Phone Phil Rodriguez MD Primary Care Provider Unavail able Ashley Rosado APRN Primary Care Provider Unav ailable Triston Bailey MD Unavailable Remedios Warren PA Unavailable Unavailable Umang Corado CHEMISTRY INTERN Unavailable [phone] Johana Lizarraga MD Primary Care Provider Chanda Soria CHEMISTRY INTERN Unavailable Susie Starr DO Primary Care Provider Johana Lizarraga MD Primary Care Provider Susie Starr DO Primary Care Provider Phil Rodriguez MD Primary Care Provider Unavail able Susie Starr DO Primary Care Provider [phone] Loreto Albert MD Unavailable [phone] Lizbeth Schilling APRN Primary Care Provider [phone] Susie Starr DO Primary Care Provider [phone] Encounter Details Date Type Department Care Team Description 02/24/2017 [facility] Medical Records [address] [place] [address] Abstract, Provider Social History Tobacco Use Types [...] do you attend [facility] or evangelical services? More than 4 times per year 04/13/2023 Do you belong to any clubs o r organizations such as advent groups, unions, fraternal or athletic groups, or [...] on filedocumented in this encounter Care Teams Operating Room Assistant Relationship Specialty Start Date End Date Phil Rodriguez MD PCP - General Internal Medicine 12/15/14 09/19/19 Ashley Rosado APRN PCP - General Internal Medicine 09/20/19 06/27/22 Johana Lizarraga MD [address] [place] [address] [place] [address] PCP - General Internal Medicine 06/28/22 11/30/22 Susie Starr, DO [address] [place] [address] [place] [address] PCP - General Internal Medicine 12/01/22 12/01/22 Johana Lizarraga MD [address] [place] [address] [place] [address] PCP - General Internal Medicine 12/02/22 12/29/[address] [address] PCP - General Internal Medicine 12/30/22 12/30/22 Phil Rodriguez MD PCP - General Internal Medicine 01/04/23 01/10/[address] [address] PCP - General Internal Medicine 01/11/23 02/01/24 Lizbeth Schilling, PEDIATRIC DERMATOLOGIST [address] [place] [address] PCP - General Internal Medicine 02/02/24 02/11/[address] [address] PCP - General Internal Medicine 02/12/24 Triston Bailey MD [address] [place] [address] [place] [address] It Applications Manager Cardiovascular Disease 06/10/20 Remedios Warren PA [address] [place] [address] [place] [address] Cardiology 12/08/21 Umang Corado NP [address] [place] [address] [place] [address] Specialist Cardiology 02/23/22 Chanda Soria NP [address] [place] [address] [place] [address] Cardiology 08/11/22 Loreto Albert MD [address] [place] [address] Internal Medicine 04/13/23 documented as of this encounter
--- OUTSIDE RECORDS SUMMARY | 2024-05-21 15:45 | XMS_ITS | Encounter Summary ---
Author Organization [facility] Address [address] [place] [address] Care Team Providers Care Dietetic Technician Registered Name Role Phone Ashley Rosado APRN Primary Care Provider Unav Triston Jaffe MD Unavailable Remedios Warren Unavailable Unavailable Umang Corado INSURANCE SALES MANAGER Unavailable [phone] Johana Lizarraga MD Primary Care Provider Chanda Soria NP Unavailable Susie Starr DO Primary Care Provider Johana Lizarraga MD Primary Care Provider Susie Starr DO Primary Care Provider Phil Rodriguez MD Primary Care Provider Unavail able Susie Starr DO Primary Care Provider Loreto Albert MD Unavailable [phone] Lizbeth Schilling APRN Primary Care Provider Susie Starr DO Primary Care Provider [phone] Reason for Visit * Reason Comments E-prescribe Rx Request Encounter Details Date Type Department Care Team Description 02/20/2020 Refill Adult Medicine [address] [id number] Lizbeth Schilling APRN [address] [place], [place] [id number] E-prescribe Rx Request Social History Tobacco Use [...] week 04/13/2023 How often do you attend [facility] or gnosticism services? More than 4 times per year 04/13/2023 Do you belong to any clubs o r organizations such as adventism groups, unions, fraternal or athletic groups, or [...] Telephone Encounter - Silvia Rose M.A. - 02/20/2020 2:17 PM EDT Date of last office visit was 01/08/20 Lab Results Component Value Date NA 140 12/27/2019 K 5.5 12/27/2019 CO2 26 12/27/2019 CL 109 12/27/2019 BUN 38 12/27/2019 CREAT 1.14 12/27/2019 GLU 114 12/27/2019 CA 9.1 12/27/2019 GFR 47 12/27/2019 Lab Results Component Value Date WBC 4.1 02/07/2018 HGB 10.1 03/05/2019 HCT 32.8 03/05/2019 MCV 87.4 02/07/2018 PLTCT 397 02/07/2018 * Telephone Encounter - Silvia Rose M.A. - 02/20/2020 11:26 AM EDT Patient would like script to be: E-PRESCRIBED/FAXED TO PHARMACY WHEN WAS THE PATIENT'S LAST APPOINTMENT IN ADULT MEDICINE? 01/08/20 WHEN WAS THE LAST TIME THE PATIENT SAW THEIR PCP? Same as above Does patient have an upcoming appointment? no (THE MEDICATION REQUESTED IS ON THE MED LIST ABOVE) All of the medications requested were on the CURRENT MEDS list Did you check the Pharmacy information above?: NO Patient wants: 30 -day supply Is this a mail order prescription request ? NO If the refill is from a FAXED refill request what is the RX # listed on the fax? N/A Patients current insurance carrier is: [facility] MCR / Plan: HMO $0 [facility] [id number] / Product Type: HMO [id number] documented in this encounter Plan of Treatment Not on file documented as of this encounter Visit Diagnoses Not on filedocumented in this encounter Care Teams Dietetic Technician Registered Relationship Specialty Start Date End Date Ashley Rosado APRN PCP - General Internal Medicine 09/20/19 06/27/22 Johana Lizarraga MD [address] [place] [address] [place] [address] PCP - General Internal Medicine 06/28/22 [facility]/30[facility]22 [facility] [address] [place] [address] PCP - General Internal Medicine 12/01/22 12/01/22 Johana Lizarraga MD [facility] [place] [address] PCP - General Internal Medicine 12/02/22 12/29/22 [facility] Susie, 305 [facility] [place] [address] PCP - General Internal Medicine 12/30/22 12/30/22 Phil Rodriguez MD [address] [place] [address] PCP - General Internal Medicine 01/04/23 01/10/23 [facility], [address] [place] [address] PCP - General Internal Medicine 01/11/23 02/01/24 Lizbeth Schilling, MELISSA [address] [place] [address] PCP - General Internal Medicine 02/02/24 02/11/24 [facility] [address] [place] [address] PCP - General Internal Medicine 02/12/24 Triston Bailey MD [address] [place] [address] [place] [address] Sawmill Manager Cardiovascular Disease 06/10/20 Remedios Warren PA [address] [place] [address] [place] [address] Cardiology 12/08/21 Umang Corado NP [address] [place] [address] [place] [address] Specialist Cardiology 02/23/22 Chanda Soria NP [address] [place] [address] [place] [address] Cardiology 08/11/22 Loreto Albert MD [address] [place] [address] Internal Medicine 04/13/23 documented as of this encounter
--- OUTSIDE RECORDS SUMMARY | 2024-05-21 15:45 | XMS_ITS | Encounter Summary ---
Author Organization [facility] Address [address] [place] [address] Care Team Providers Care Grade Recorder Name Role Phone Phil Rodriguez MD Primary Care Provider Unavail able Ashley Rosado APRN Primary Care Provider Unav ailable Triston Bailey MD Unavailable Remedios Warren PA Unavailable Unavailable Umang Corado NP Unavailable Johana Lizarraga MD Primary Care Provider Chanda Soria NIPPING MACHINE OPERATOR Unavailable Susie Starr DO Primary Care Provider Johana Lizarraga MD Primary Care Provider Susie Starr DO Primary Care Provider Phil Rodriguez MD Primary Care Provider Unavail able Susie Starr DO Primary Care Provider [phone] Loreto Albert MD Unavailable [phone] Lizbeth Schilling APRN Primary Care Provider [phone] Susie Starr DO Primary Care Provider [phone] Encounter Details Date Type Department Care Team Description 02/06/2019 Sales Representative Business Courses Report Medical Records [address] [place] [address] Susan Mishra Np Social History Tobacco Use Types Packs/Day Years [...] often do you attend [facility] or nondenominational services? More than 4 times per year [...] on filedocumented in this encounter Care Teams Grade Recorder Relationship Specialty Start Date End Date Phil Rodriguez MD PCP - General Internal Medicine 12/15/14 09/19/19 Ashley Rosado APRN PCP - General Internal Medicine 09/20/19 06/27/22 Johana Lizarraga MD [address] [place] [address] [place] [address] PCP - General Internal Medicine 06/28/22 11/30/22 Susie Starr, [address] [place] [address] PCP - General Internal Medicine 12/01/22 12/01/22 Johana Lizarraga MD [address] [place] [address] [place] [address] PCP - General Internal Medicine 12/02/22 12/29/22 [facility] [address] [place] [address] PCP - General Internal Medicine 12/30/22 12/30/22 Phil Rodriguez MD PCP - General Internal Medicine 01/04/23 01/10/[address] [address] PCP - General Internal Medicine 01/11/23 02/01/24 Lizbeth Schilling, ENDBAND CUTTER HAND [address] [place] [address] PCP - General Internal Medicine 02/02/24 02/11/[address] [address] PCP - General Internal Medicine 02/12/24 Triston Bailey MD [address] [place] [address] [place] [address] Vp Director Of Finance Cardiovascular Disease 06/10/20 Remedios Warren PA [address] [place] [address] [place] [address] Cardiology 12/08/21 Umang Corado NP [address] [place] [address] [place] [address] Specialist Cardiology 02/23/22 Chanda Soria NP [address] [place] [address] [place] [address] Cardiology 08/11/22 Loreto Albert MD [address] [place] [address] Internal Medicine 04/13/23 documented as of this encounter
--- OUTSIDE RECORDS SUMMARY | 2024-05-21 15:45 | XMS_ITS | Encounter Summary ---
Author Organization [facility] Address [address] [place] [address] Care Team Providers Care Button And Buckle Maker Name Role Phone Ashley Rosado APRN Primary Care Provider Triston Franks MD Unavailable Remedios Warren Unavailable Unavailable Umang Corado IT PROJECT COORDINATOR Unavailable Johana Lizarraga MD Primary Care Provider Chanda Soria NP Unavailable Susie Starr DO Primary Care Provider Johana Lizarraga MD Primary Care Provider Susie Starr DO Primary Care Provider Phil Rodriguez MD Primary Care Provider Unavail able Susie Starr DO Primary Care Provider Loreto Albert MD Unavailable [phone] Lizbeth Schilling APRN Primary Care Provider Susie Starr DO Primary Care Provider [phone] Reason for Visit * Reason Comments E-prescribe Rx Request Encounter Details Date Type Department Care Team Description 11/27/2019 Refill Adult Medicine [facility] [address] [place] [address] Ashley Rosado APRN E-prescribe Rx Request Social [...] do you attend [facility] or cheondoism services? More than 4 times per year 04/13/2023 Do you belong to any clubs o r organizations such as orthodox groups, unions, fraternal or athletic groups, or [...] - Lorrie De La Cruz M.A. - 11/28/2019 1:22 PM EDT Faxed to pharmacy Pt notified appt made * Telephone Encounter - Lizbeth Schilling APRN - 11/28/2019 1:19 PM EDT Appointment with new PCP required for further refills * Telephone Encounter - Allison Rivero M.A. - 11/28/2019 10:49 AM EDT Last seen 09/19/19 Lab Results Component Value Date NA 136 06/27/2019 K 4.8 06/27/2019 CO2 27 06/27/2019 CL 105 06/27/2019 BUN 35 06/27/2019 CREAT 1.30 06/27/2019 GLU 103 06/27/2019 CA 9.4 06/27/2019 GFR 40 06/27/2019 * Telephone Encounter - Marisela Youssef - 11/28/2019 9:19 AM EDT Patient would like script to be: E-PRESCRIBED/FAXED TO PHARMACY WHEN WAS THE PATIENT'S LAST APPOINTMENT IN ADULT MEDICINE? 10/21/19 WHEN WAS THE LAST TIME THE PATIENT SAW THEIR PCP? Unkown Does patient have an upcoming appointment? No-patient refused appointment, will call back to book appointment (THE MEDICATION REQUESTED IS ON THE MED [...] N/A Patients current insurance carrier is: Payor: [facility] MCR / Plan: [facility] [id number] / Product Type: HMO [id number]-[id number] documented in this encounter Plan of Treatment Not on file documented as of this encounter Visit Diagnoses Not on filedocumented in this encounter Care Teams Button And Buckle Maker Relationship Specialty Start Date End Date Ashley Rosado APRN PCP - General Internal Medicine 09/20/19 06/27/22 Johana Lizarraga MD [address] [place] [address] [place] [address] PCP - General Internal Medicine 06/28/22 11/30/22 [facility], [address] [place] [address] PCP - General Internal Medicine 12/01/22 12/01/22 Johana Lizarraga MD [address] [place] [address] [place] [address] PCP - General Internal Medicine 12/02/22 12/29/22 [facility], [address] [place] [address] PCP - General Internal Medicine 12/30/22 12/30/22 Phil Rodriguez MD [address] [place] [address] PCP - General Internal Medicine 01/04/23 01/10/23 [facility], [address] [place] [address] PCP - General Internal Medicine 01/11/23 02/01/24 Lizbeth Schilling APRN [address] [place] [address] PCP - General Internal Medicine 02/02/24 02/11/24 [facility], [address] [place] [address] PCP - General Internal Medicine 02/12/24 Triston Bailey MD [address] [place] [address] [place] [address] Professional Poker Player Cardiovascular Disease 06/10/20 Remedios Warren PA [address] [place] [address] [place] [address] Cardiology 12/08/21 Umang Corado NP [address] [place] [address] [place] [address] Specialist Cardiology 02/23/22 Chanda Soria NP [address] [place] [address] [address] Cardiology 08/11/22 Loreto Albert MD [address] [place] [address] Internal Medicine 04/13/23 documented as of this encounter
--- OUTSIDE RECORDS SUMMARY | 2024-05-21 15:45 | XMS_ITS | Encounter Summary ---
Author Organization [facility] Address [address] [place] [address] Care Team Providers Care Advertising Vice President Name Role Phone Phil Rodriguez MD Primary Care Provider Unavail able Tony Rodriguez MD Primary Care Provider Unavail able Phil Rodriguez MD Primary Care Provider Unavail able Ashley Rosado APRN Primary Care Provider Unav ailable Triston Bailey MD Unavailable Remedios Warren Unavailable Unavailable Umang Corado PARACHUTE RIGGER Unavailable [phone] Johana Lizarraga MD Primary Care Provider Chanda Soria NP Unavailable Susie Starr DO Primary Care Provider [phone] Johana Lizarraga MD Primary Care Provider Susie Starr DO Primary Care Provider [phone] Phil Rodriguez MD Primary Care Provider Unavail able Susie Starr DO Primary Care Provider [phone] Loreto Albert MD Unavailable [phone] Lizbeth Schilling APRN Primary Care Provider Susie Starr DO Primary Care Provider [phone] Encounter Details Date Type Department Care Team Description 05/29/2006 Cell Tuber Machine Report Medical Records [address] [place] [address] Fredis Gaytan MD Social History Tobacco Use Types Packs/Day Years Used Date Smoking Tobacco: Former Cigarettes Q uit: 04/24/1989 Alcohol Use Standard Drinks/Week Comments No 0 [...] often do you attend [facility] or mormon services? More than 4 times per year [...] on filedocumented in this encounter Care Teams Advertising Vice President Relationship Specialty Start Date End Date Phil Rodriguez MD PCP - General 03/07/05 12/04/14 Tony Rodriguez MD PCP - General Internal Medicine 12/05/14 12/14/14 Phil Rodriguez MD PCP - General Internal Medicine 12/15/14 09/19/19 Ashley Rosado APRN PCP - General Internal Medicine 09/20/19 06/27/22 Johana Lizarraga MD [address] [place] [address] [place] [address] PCP - General Internal Medicine 06/28/22 11/30/22 [facility] [address] [place] [address] PCP - General Internal Medicine 12/01/22 12/01/22 Johana Lizarraga MD [address] [place] [address] [place] [address] PCP - General Internal Medicine 12/02/22 12/29/22 [facility] [address] [place] [address] PCP - General Internal Medicine 12/30/22 12/30/22 Phil Rodriguez MD PCP - General Internal Medicine 01/04/23 01/10/23 [facility], [address] [place] [address] PCP - General Internal Medicine 01/11/23 02/01/24 Lizbeth Schilling, MELISSA [address] [place] [address] PCP - General Internal Medicine 02/02/24 02/11/24 [facility], [address] [place] [address] PCP - General Internal Medicine 02/12/24 Triston Bailey MD [address] [place] [address] [place] [address] Senior Genetic Counselor Cardiovascular Disease 06/10/20 Remedios Warren PA [address] [place] [address] [place] [address] Cardiology 12/08/21 Umang Corado NP [address] [place] [address] Specialist Cardiology 02/23/22 Chanda Soria NP [address] [place] [address] Cardiology 08/11/22 Loreto Albert MD [address] [place] [address] Internal Medicine 04/13/23 documented as of this encounter
--- OUTSIDE RECORDS SUMMARY | 2024-05-21 15:45 | XMS_ITS | Encounter Summary ---
Author Organization [facility] Address [address] [place] [address] Care Team Providers Care School Cafeteria Head Cook Name Role Phone Triston Bailey MD Unavailable [phone] Remedios Warren Unavailable Unavailable Umang Corado ARCADE ATTENDANT Unavailable [phone] Chanda Soria NP Unavailable [phone] Susie Starr DO Primary Care Provider Loreto Albert MD Unavailable [phone] Lizbeth Schilling APRN Primary Care Provider [phone] Susie Starr DO Primary Care Provider Encounter Details Date Type Department Care Team Description 07/12/2023 SCAN Medical Records [address] [place] [address] [facility] Social History Tobacco Use Types Packs/Day [...] week 04/13/2023 How often do you attend [facility] or [facility] services? More than 4 times per year [...] on filedocumented in this encounter Care Teams School Cafeteria Head Cook Relationship Specialty Start Date End Date Lisa Starrmana, [address] [place] [address] PCP - General Internal Medicine 01/11/23 02/01/24 Lizbeth Schilling APRN [address] [place] [address] PCP - General Internal Medicine 02/02/24 02/11/24 Lisa Starrmana, [address] [place] [address] PCP - General Internal Medicine 02/12/24 Triston Bailey MD [address] [place] [address] [place] [address] Rn Clinician Cardiovascular Disease 06/10/20 Remedios Warren PA [address] [place] [address] Dr Hui [address] [place] [address] Cardiology 12/08/21 Umang Corado NP [address] [place] [address] [place] [address] Specialist Cardiology 02/23/22 Chanda Soria NP [address] [place] [address] Breann Hui [address] [place] [address] Cardiology 08/11/22 Loreto Albert MD [address] [place] [address] Internal Medicine 04/13/23 documented as of this encounter
--- OUTSIDE RECORDS SUMMARY | 2024-05-21 15:45 | XMS_ITS | Encounter Summary ---
Author Organization [facility] Address [address] [place] [address] Care Team Providers Care Assistant At Surgery Name Role Phone Phil Rodriguez MD Primary Care Provider Unavail able Ashley Rosado APRN Primary Care Provider Unav ailable Triston Bailey MD Unavailable Remedios Warren Unavailable Unavailable Umang Corado RETAIL WORKER Unavailable [phone] Johana Lizarraga MD Primary Care Provider Chanda Soria RETAIL WORKER Unavailable Susie Starr DO Primary Care Provider [phone] Johana Lizarraga MD Primary Care Provider Susie Starr DO Primary Care Provider Phil Rodriguez MD Primary Care Provider Unavail able Susie Starr DO Primary Care Provider [phone] Loreto Albert MD Unavailable [phone] Lizbeth Schilling APRN Primary Care Provider [phone] Susie Starr DO Primary Care Provider [phone] Encounter Details Date Type Department Care Team Description 01/26/2016 Orders Only Adult Medicine [address] [address] Sandra Lazo PA-Susu Hyperlipidemia, unspecified hyperlipidemia type (Primary Dx) Social History Tobacco Use Types [...] do you attend [facility] or [facility] services? More than 4 times per year 04/13/2023 Do you belong to any clubs o r organizations such as mormon groups, unions, fraternal or athletic groups, or [...] as of this encounter Visit Diagnoses Diagnosis Hyperlipidemia, unspecified hyperlipidemia type- Primary documented in this encounter Care Teams Assistant At Surgery Relationship Specialty Start Date End Date Phil Rodriguez MD PCP - General Internal Medicine 12/15/14 09/19/19 Ashley Rosado APRN PCP - General Internal Medicine 09/20/19 06/27/22 Johana Lizarraga MD [address] [place] [address] [place] [address] PCP - General Internal Medicine 06/28/22 11/30/22 [facility], [address] [place] [address] PCP - General Internal Medicine 12/01/22 12/01/22 Johana Lizarraga MD [address] [place] [address] [place] [address] PCP - General Internal Medicine 12/02/22 12/29/22 [facility], [address] [place] [address] PCP - General Internal Medicine 12/30/22 12/30/22 Phil Rodriguez MD PCP - General Internal Medicine 01/04/23 01/10/23 [facility] [address] [place] [address] PCP - General Internal Medicine 01/11/23 02/01/24 Lizbeth Schilling, SUPERVISOR FLOOR ASSEMBLY [address] [place] [address] PCP - General Internal Medicine 02/02/24 02/11/24 [facility], [address] [place] [address] PCP - General Internal Medicine 02/12/24 Triston Bailey MD [address] [place] [address] [place] [address] Manager Of Security Cardiovascular Disease 06/10/20 Remedios Warren PA [address] [facility] [place] [address] Cardiology 12/08/21 Umang Corado NP [address] [facility] [place] [address] Specialist Cardiology 02/23/22 Chanda Soria NP [address] [place] [address] [address] Cardiology 08/11/22 Loreto Albert MD [address] [place] [address] Internal Medicine 04/13/23 documented as of this encounter
--- OUTSIDE RECORDS SUMMARY | 2024-05-21 15:45 | XMS_ITS | Encounter Summary ---
Author Organization [facility] Address [address] [place] [address] Care Team Providers Care Components Engineer Name Role Phone Ashley Rosado APRN Primary Care Provider UnaTritson Kapadia MD Unavailable Remedios Warren Unavailable Unavailable Umang Corado STEEL POURER HELPER Unavailable [phone] Johana Lizarraga MD Primary Care Provider Chanda Soria NP Unavailable Susie Starr DO Primary Care Provider Johana Lizarraga MD Primary Care Provider Susie Starr DO Primary Care Provider Phil Rodriguez MD Primary Care Provider Unavail able Susie Starr DO Primary Care Provider Loreto Albert MD Unavailable [phone] Lizbeth Schilling APRN Primary Care Provider Susie Starr DO Primary Care Provider [phone] Reason for Visit * Reason Comments E-prescribe Rx Request Encounter Details Date Type Department Care Team Description 12/22/2019 Refill Adult Medicine B - [address] [id number] Lizbeth Schilling APRN [address] [place], [place] [id number] E-prescribe Rx Request Social History Tobacco Use [...] week 04/13/2023 How often do you attend [facility] or adventist services? More than 4 times per year 04/13/2023 Do you belong to any clubs o r organizations such as hindu groups, unions, fraternal or athletic groups, or [...] encounter Miscellaneous Notes * Telephone Encounter - Herlinda Walsh M.A. - 12/24/2019 12:00 PM EDT Last office visit 09/19/19 pending appt 12/27/19 Lab Results Component Value Date HGBA1C 6.9 06/27/2019 MALBUR 6.0 03/14/2019 MALBCR < 6.7 03/14/2019 CHOL 281 03/14/2019 LDL 208 03/14/2019 HDL 40 03/14/2019 TRIG 166 03/14/2019 GLU 103 06/27/2019 CREAT 1.30 06/27/2019 * Telephone Encounter - Samantha Ben - 12/24/2019 11:29 AM EDT Patient would like script to be: E-PRESCRIBED/FAXED TO PHARMACY WHEN WAS THE PATIENT'S LAST APPOINTMENT IN ADULT MEDICINE? 09-19-19 WHEN WAS THE LAST TIME THE PATIENT SAW THEIR PCP? never Does patient have an upcoming appointment? Yes 12-27-19 (THE MEDICATION REQUESTED IS ON THE MED [...] N/A Patients current insurance carrier is: Payor: [facility] M[facility] / Plan: [facility] $0 [facility] [id number] / Product Type: HMO [id number] documented in this encounter Plan of Treatment Not on file documented as of this encounter Visit Diagnoses Not on filedocumented in this encounter Care Teams Components Engineer Relationship Specialty Start Date End Date Ashley Rosado APRN PCP - General Internal Medicine 09/20/19 06/27/22 Johana Lizarraga MD [address] [place] [address] [place] [address] PCP - General Internal Medicine 06/28/22 11/30/22 [facility], [address] [place] [address] PCP - General Internal Medicine 12/01/22 12/01/22 Johana Lizarraga MD [address] [place] [address] [place] [address] PCP - General Internal Medicine 12/02/22 12/29/22 [facility], [address] [place] [address] PCP - General Internal Medicine 12/30/22 12/30/22 Phil Rodriguez MD [address] [place] [address] PCP - General Internal Medicine 01/04/23 01/10/23 [facility], [address] [place] [address] PCP - General Internal Medicine 01/11/23 02/01/24 Lizbeth Schilling, MELISSA [address] [place] [address] PCP - General Internal Medicine 02/02/24 02/11/24 [facility], [address] [place] [address] PCP - General Internal Medicine 02/12/24 Triston Bailey MD [address] [place] [address] [place] [address] Commercial Green Building Designer Cardiovascular Disease 06/10/20 Remedios Warren PA [address] [facility] [place] [address] Cardiology 12/08/21 Umang Corado NP [address] [facility] [place] [address] Specialist Cardiology 02/23/22 Chanda Soria, KIRAN [address] [place] [address] [address] Cardiology 08/11/22 Loreto Albert MD [address] [place] [address] Internal Medicine 04/13/23 documented as of this encounter
--- OUTSIDE RECORDS SUMMARY | 2024-05-21 15:45 | XMS_ITS | Encounter Summary ---
Author Organization [facility] Address [address] [place] [address] Care Team Providers Care Door Repairman Name Role Phone Ashley Rosado APRN Primary Care Provider Unav Triston Jaffe MD Unavailable [phone] Remedios Warren Unavailable Unavailable Umang Corado NP Unavailable [phone] Johana Lizarraga MD Primary Care Provider Chanda Soria NP Unavailable Susie Starr DO Primary Care Provider Johana Lizarraga MD Primary Care Provider Susie Starr DO Primary Care Provider Phil Rodriguez MD Primary Care Provider Unavail able Susie Starr DO Primary Care Provider Loreto Albert MD Unavailable [phone] Lizbeth Schilling APRN Primary Care Provider Susie Starr DO Primary Care Provider [phone] Reason for Visit * Reason Onset Date Comments Prior Authorization 04/05/2022 CT Of Head/B rain Encounter Details Date Type Department Care Team Description 04/05/2022 Telephone Adult Medicine - [place] [address] [employer], [place] [phone] Jhoan Garibay NP [address] [place] [address] Prior Authorization (CT Of Head/Brain) Social History Tobacco Use Types Packs/Day Years [...] 04/13/2023 How often do you attend [facility] or baptism services? More than 4 times [...] suspected to have Coronavirus/COVID-19? No / Unsure 04/01/2022 1:48 PM EST documented as of this encounter Miscellaneous Notes * Telephone Encounter - Modesta Lay - 04/05/2022 12:47 PM EST Auth Pending W/CCA Faxed 04/05/22. Thank You Modesta Lance Auth Dept [id number] documented in this encounter Plan of Treatment Not on file documented as of this encounter Visit Diagnoses Not on filedocumented in this encounter Care Teams Door Repairman Relationship Specialty Start Date End Date Ashley Rosado APRN PCP - General Internal Medicine 09/20/19 06/27/22 Johana Lizarraga MD [address] [place] [address] [place] [address] PCP - General Internal Medicine 06/28/22 11/30/22 Susie Starr, [address] [place] [address] PCP - General Internal Medicine 12/01/22 12/01/22 Johaan Lizarraga MD [address] [place] [address] [place] [address] PCP - General Internal Medicine 12/02/22 12/29/22 Susie Starr, DO [address] [place] [address] PCP - General Internal Medicine 12/30/22 12/30/22 Phil Rodriguez MD [address] [place] [address] PCP - General Internal Medicine 01/04/23 01/10/23 Susie Starr, [address] [place] [address] PCP - General Internal Medicine 01/11/23 02/01/24 Lizbeth Schilling APRN [address] [place] [address] PCP - General Internal Medicine 02/02/24 02/11/24 RoSusie, DO [address] [facility] [place] [address] PCP - General Internal Medicine 02/12/24 Triston Bailey MD [address] [place] [address] [address] Acid Crane Operator Cardiovascular Disease 06/10/20 Remedios Warren, PA [address] [place] [address] [place] [address] Cardiology 12/08/21 Umang Corado NP [address] [place] [address] [facility] [place] [address] Specialist Cardiology 02/23/22 Chanda Soria NP [address] [place] [address] [address] Cardiology 08/11/22 Loreto Albert MD [address] [place] [address] Internal Medicine 04/13/23 documented as of this encounter
--- OUTSIDE RECORDS SUMMARY | 2024-05-21 15:45 | XMS_ITS | Encounter Summary ---
Author Organization [facility] Address [address] [place] [address] Care Team Providers Care Boat Deckhand Name Role Phone Phil Rodriguez MD Primary Care Provider Unavail able Ashley Rosado APRN Primary Care Provider Unav ailable Triston Bailey MD Unavailable Remedios Warren PA Unavailable Unavailable Umang Corado WILDLIFE SCIENCE PROFESSOR Unavailable Johana Lizarraga MD Primary Care Provider Chanda Soria WILDLIFE SCIENCE PROFESSOR Unavailable Susie Starr DO Primary Care Provider Johana Lizarraga MD Primary Care Provider Susie Starr DO Primary Care Provider Phil Rodriguez MD Primary Care Provider Unavail able Susie Starr DO Primary Care Provider [phone] Loreto Albert MD Unavailable [phone] Lizbeth Schilling APRN Primary Care Provider [phone] Susie Starr DO Primary Care Provider [phone] Encounter Details Date Type Department Care Team Description 02/06/2019 Dev Ops Engineer Report Medical Records [address] [place] [address] Lv [place] [address] [facility] [address] [place] [address] Social History Tobacco Use Types Packs/Day Years [...] 04/13/2023 How often do you attend [facility] or jew services? More than 4 times [...] on filedocumented in this encounter Care Teams Boat Deckhand Relationship Specialty Start Date End Date Phil Rodriguez MD PCP - General Internal Medicine 12/15/14 09/19/19 Ashley Rosado APRN PCP - General Internal Medicine 09/20/19 06/27/22 Johana Lizarraga MD [address] [place] [address] [place] [address] PCP - General Internal Medicine 06/28/22 11/30/22 [facility], [address] [place] [address] PCP - General Internal Medicine 12/01/22 12/01/22 Johana Lizarraga MD [address] [place] [address] [place] [address] PCP - General Internal Medicine 12/02/22 12/29/22 [facility], [address] [place] [address] PCP - General Internal Medicine 12/30/22 12/30/22 Phil Rodriguez MD PCP - General Internal Medicine 01/04/23 01/10/23 [facility], [address] [place] [address] PCP - General Internal Medicine 01/11/23 02/01/24 Lizbeth Schilling, FLOWER STRIPPER [address] [place] [address] PCP - General Internal Medicine 02/02/24 02/11/24 [facility] [address] [place] [address] PCP - General Internal Medicine 02/12/24 Triston Bailey MD [address] [place] [address] [place] [address] Air Brake Operator Cardiovascular Disease 06/10/20 Remedios Warren PA [address] [facility] [place] [address] Cardiology 12/08/21 Umang Corado NP [address] [facility] [address] Specialist Cardiology 02/23/22 Chanda Soria NP [address] [place] [address] [address] Cardiology 08/11/22 Loreto Albert MD [address] [place] [address] Internal Medicine 04/13/23 documented as of this encounter
--- OUTSIDE RECORDS SUMMARY | 2024-05-21 15:45 | XMS_ITS | Encounter Summary ---
Author Organization [facility] Address [address] [place] [address] Care Team Providers Care Instrument Lens Grinder Name Role Phone Phil Rodriguez MD Primary Care Provider Unavail able Ashley Rosado APRN Primary Care Provider Unav ailable Triston Bailey MD Unavailable Remedios Warren Unavailable Unavailable Umang Corado FURNITURE DETAILER Unavailable [phone] Johana Lizarraga MD Primary Care Provider Chanda Soria FURNITURE DETAILER Unavailable Susie Starr DO Primary Care Provider Johana Lizarraga MD Primary Care Provider Susie Starr DO Primary Care Provider Phil Rodriguez MD Primary Care Provider Unavail able Susie Starr DO Primary Care Provider Loreto Albert MD Unavailable [phone] Lizbeth Schilling APRN Primary Care Provider [phone] Susie Starr DO Primary Care Provider Encounter Details Date Type Department Care Team Description 12/29/2016 Orders Only Adult Medicine [facility] [address] [place] [address] Kristy Kent PA-C Thyroid nodule (Primary Dx) Social History Tobacco Use Types [...] week 04/13/2023 How often do you attend [facility] or yarsani services? More than 4 times per year 04/13/2023 Do you belong to any clubs o r organizations such as adventist groups, unions, fraternal or athletic groups, or [...] documented as of this encounter Results * BAL SADLER W/IMAGING GUIDANCE (01/17/2017 9:29 AM EDT) 01/17/2017 11:5 8 AM EDT Addenda Addendum by Atul Duarte MD on 01/19/2017 4:24 PM EDT Addendum: Pathology became available on 01/11/2017:? THYROID, RIGHT LOBE (FINE NEEDLE ASPIRATION WITH CELL BLOCK): ?? - ?BETHESDA SYSTEM CLASSIFICATION: BENIGN. ? ?? -DESCRIPTION: ?BENIGN FOLLICULAR CELLS ARE PRESENT. ? Benign results (no evidence of cancer) were discussed by telephone with the patient on 01/19/2017 at 4:20 PM. Impressions AMAIRANI GLOVER EXTERNAL - 01/17/2017 12:04 PM EDT IMPRESSION: Successful fine-needle aspiration of heterogeneous right thyroid nodule. Addendum will be issued when pathology results are available. Narrative AMAIRANI GLOVER EXTERNAL - 01/17/2017 12:04 PM EDT SONO GUIDED NEEDLE BIOPSY FINE-NEEDLE ASPIRATION WITH IMAGING GUIDANCE INDICATION: Heterogeneous right thyroid nodule. FNA recommended based on size criteria. COMPARISON: Thyroid ultrasound study from 12/28/2016. FINDINGS/TECHNIQUE: Following a discussion of the risks, benefits, and alternatives to the procedure, written informed consent was obtained from the patient. The patient was then positioned in supine with neck extended and a timeout was performed by the radiologist. ??Under image guidance, the previously identified nodule was targeted for biopsy. The skin was prepped with Betadine solution and sterile technique was employed throughout the procedure. Under direct ultrasound guidance, fine-needle aspiration was performed utilizing 3 separate passes with 27-gauge needles. Slides and CytoLyt specimen prepared and submitted for pathological review. The patient tolerated the procedure well with no immediate complications at the time of discharge. Procedure Note Tamera Salguero DO / Atul Duarte MD - 01/17/2017 SONO GUIDED NEEDLE BIOPSY FINE-NEEDLE ASPIRATION WITH IMAGING GUIDANCE INDICATION: Heterogeneous right thyroid nodule. FNA recommended based onsize criteria. COMPARISON: Thyroid ultrasound study from 12/28/2016. FINDINGS/TECHNIQUE: Following a discussion of the risks, benefits, and alternatives to theprocedure, written informed consent was obtained from the patient. The patient was then positioned in supine with neck extended and a timeoutwas performed by the radiologist. Under image guidance, the previously identified nodule wastargeted for biopsy. The skin was prepped with Betadine solution and sterile technique wasemployed throughout the procedure. Under direct ultrasound guidance, fine-needle aspiration was performedutilizing 3 separate passes with 27-gauge needles. Slides and CytoLyt specimen prepared andsubmitted for pathological review. The patient tolerated the procedure well with noimmediate complications at the time of discharge. IMPRESSION IMPRESSION: Successful fine-needle aspiration of heterogeneous rightthyroid nodule. Addendum will be issued when pathology results are available. Kristy Kent PA-C ULTRASOUND AMAIRANI GLOVER EXTERNAL documented in this encounter Visit Diagnoses Diagnosis Thyroid nodule- Primary Nontoxic uninodular goiter Thyroid nodule Nontoxic uninodular goiter documented in this encounter Care Teams Instrument Lens Grinder Relationship Specialty Start Date End Date Phil Rodriguez MD PCP - General Internal Medicine 12/15/14 09/19/19 Ashley Rosado APRN PCP - General Internal Medicine 09/20/19 06/27/22 Johana Lizarraga MD [address] [place] [address] [place] [address] PCP - General Internal Medicine 06/28/22 11/30/22 [facility] [address] [place] [address] PCP - General Internal Medicine 12/01/22 12/01/22 Johana Lizarraga MD [address] [place] [address] [place] [address] PCP - General Internal Medicine 12/02/22 12/29/22 Susie Starr, [address] [place] [address] PCP - General Internal Medicine 12/30/22 12/30/22 Phil Rodriguez MD PCP - General Internal Medicine 01/04/23 01/10/23 [facility], [address] [place] [address] PCP - General Internal Medicine 01/11/23 02/01/24 Lizbeth Schilling APRN [address] [facility] [place] [address] PCP - General Internal Medicine 02/02/24 02/11/24 Ro Susie, DO [address] [facility] [place] [address] PCP - General Internal Medicine 02/12/24 Triston Bailey MD [address] [place] [address] [place] [address] Plan Checker Cardiovascular Disease 06/10/20 Remedios Warren, STEPHAN [address] [place] [address] [place] [address] Cardiology 12/08/21 Umang Corado NP [address] [place] [address] [place] [address] Specialist Cardiology 02/23/22 Chanda Soria NP [address] [place] [address] [address] Cardiology 08/11/22 Loreto Albert MD [address] [place] [address] Internal Medicine 04/13/23 documented as of this encounter
--- OUTSIDE RECORDS SUMMARY | 2024-05-21 15:45 | XMS_ITS | Encounter Summary ---
Author Organization [facility] Address [address] [place] [address] Care Team Providers Care Character Artist Name Role Phone Phil Rodriguez MD Primary Care Provider Unavail able Tony Rodriguez MD Primary Care Provider Unavail able Phil Rodriguez MD Primary Care Provider Unavail able Ashley Rosado APRN Primary Care Provider Unav ailable Triston Bailey MD Unavailable Remedios Warren Unavailable Unavailable Umang Corado FINANCIAL ANALYST INTERN Unavailable [phone] Johana Lizarraga MD Primary Care Provider Chanda Soria FINANCIAL ANALYST INTERN Unavailable Susie Starr DO Primary Care Provider [phone] Johana Lizarraga MD Primary Care Provider Susie Starr DO Primary Care Provider [phone] hPil Rodriguez MD Primary Care Provider Unavail able Susie Starr DO Primary Care Provider [phone] Loreto Albert MD Unavailable [phone] Lizbeth Schilling APRN Primary Care Provider [phone] Susie Starr DO Primary Care Provider Reason for Visit * Reason Onset Date Comments CSC Pill Count 10/18/2010 Encounter Details Date Type Department Care Team Description 10/18/2010 Telephone Adult Medicine [address] [address] Phil Rodriguez MD [facility] Pill Count Social History Tobacco Use Types Packs/Day Years [...] 04/13/2023 How often do you attend [facility] or mandaen services? More than 4 times per year 04/13/2023 Do you belong to any clubs o r organizations such as orthodoxy groups, unions, fraternal or athletic groups, or [...] encounter Miscellaneous Notes * Telephone Encounter - Tiffanie Combs L.P.N. - 10/19/2010 9:20 AM EDT Last RX for Lorazepam filled on 10/11/2010 [id number] Si-2 tabs twice daily Expected remaining tablets: 32 Actual Pill Count number: 44 Provider notified of result: YES Appearance of medication tablet verified in Epocrates/PDR or patients pharmacy: Pill count performed by Sadaf Ryan CMA Witnessed by: Tiffanie Joseph L.P.N. Electronically signed by: Tiffanie Joseph L.P.N. 10/19/2010 9:17 AM * Telephone Encounter - Ania Burgos M.A. - 10/18/2010 10:05 AM EDT Pt was notified to appear with all control substance medications in their original containers for arandom Pill Count. Patient to bring in the following medication/s: lorazepam Pt was advised that they need to appear by Ania Burgos on 10/18/2010. Instructed that failure to do so will jeopordize their Control Substance Contract with us. Pt expressed understanding and confirmed that they will arrive by that time. documented in this encounter Plan of Treatment Not on file documented as of this encounter Visit Diagnoses Not on filedocumented in this encounter Care Teams Character Artist Relationship Specialty Start Date End Date Phil Rodriguez MD PCP - General 03/07/05 12/04/14 Tony Rodriguez MD PCP - General Internal Medicine 12/05/14 12/14/14 Phil Rodriguez MD PCP - General Internal Medicine 12/15/14 09/19/19 Ashley Rosado APRN PCP - General Internal Medicine 09/20/19 06/27/22 Johana Lizarraga MD [address] [place] [address] Dr Hui [address] [place] [address] PCP - General Internal Medicine 06/28/22 11/30/22 Susie Starr, DO [address] [place] [address] PCP - General Internal Medicine 12/01/22 12/01/22 Johana Lizarraga MD [address] [place] [address] [place] [address] PCP - General Internal Medicine 12/02/22 12/29/22 [facility], [address] [place] [address] PCP - General Internal Medicine 12/30/22 12/30/22 Phil Rodriguez MD PCP - General Internal Medicine 01/04/23 01/10/23 [facility], [address] [place] [address] PCP - General Internal Medicine 01/11/23 02/01/24 Lizbeth Schilling, ROAD TRAFFIC CONTROLLER [address] [place] [address] PCP - General Internal Medicine 02/02/24 02/11/24 [facility], [address] [place] [address] PCP - General Internal Medicine 02/12/24 Triston Bailey MD [address] [place] [address] [place] [address] Community Relations Liaison Cardiovascular Disease 06/10/20 Remedios Warren PA [address] [place] [address] [place] [address] Cardiology 12/08/21 Umang Corado NP [address] [place] [address] [place] [address] Specialist Cardiology 02/23/22 Chanda Soria NP [address] [place] [address] Breann Hui [address] [place] [address] Cardiology 08/11/22 Loreto Albert MD [address] [place] [address] Internal Medicine 04/13/23 documented as of this encounter
--- OUTSIDE RECORDS SUMMARY | 2024-05-21 15:45 | XMS_ITS | Encounter Summary ---
Author Organization [facility] Address [address] [place] [address] Care Team Providers Care Recruitment Officer Name Role Phone Ashley Rosado APRN Primary Care Provider Triston Franks MD Unavailable Remedios Warren Unavailable Unavailable Umang Corado DISTRICT BRANCH MANAGER Unavailable [phone] Johana Lizarraga MD Primary Care Provider Chanda Soria NP Unavailable Susie Starr DO Primary Care Provider Johana Lizarraga MD Primary Care Provider Susie Starr DO Primary Care Provider Phil Rodriguez MD Primary Care Provider Unavail able Susie Starr DO Primary Care Provider [phone] Loreto lAbert MD Unavailable [phone] Lizbeth Schilling APRN Primary Care Provider Susie Starr DO Primary Care Provider [phone] Encounter Details Date Type Department Care Team Description 01/02/2020 [facility] Controlled Substance Contract Medical Records [address] [place] [id number] Abstract, Provider Social History Tobacco Use Types [...] week 04/13/2023 [facility] or alev[facility] services? More than 4 times per year [...] have Coronavirus / COVID-19? No / Unsure 12/27/2019 10:59 AM EDT documented as of this encounter Plan of Treatment Not on file documented as of this encounter Visit Diagnoses Not on filedocumented in this encounter Care Teams Recruitment Officer Relationship Specialty Start Date End Date Ashley Rosado APRN PCP - General Internal Medicine 09/20/19 06/27/22 Johana Lizarraga MD [address] [place] [address] [place] [address] PCP - General Internal Medicine 06/28/22 11/30/22 Jaloudi, Susie, DO [address] [place] [address] PCP - General Internal Medicine 12/01/22 12/01/22 Johana Lizarraga MD [address] [place] [address] [place] [address] PCP - General Internal Medicine 12/02/22 12/29/22 [facility], [address] [place] [address] PCP - General Internal Medicine 12/30/22 12/30/22 Phil Rodriguez MD [address] [place] [address] PCP - General Internal Medicine 01/04/23 01/10/23 [facility], [address] [place] [address] PCP - General Internal Medicine 01/11/23 02/01/24 Lizbeth Schilling, WIG MAKER [address] [place] [address] PCP - General Internal Medicine 02/02/24 02/11/24 [facility], [address] [place] [address] PCP - General Internal Medicine 02/12/24 Triston Bailey MD [address] [place] [address] [place] [address] Concrete Engineering Technician Cardiovascular Disease 06/10/20 Remedios Warren PA [address] [facility] [place] [address] Cardiology 12/08/21 Umang Corado NP [address] [place] [address] Specialist Cardiology 02/23/22 Chanda Soria NP [address] [place] [address] Drive Ez [address] [place] [address] Cardiology 08/11/22 Loreto Albert MD [address] [place] [address] Internal Medicine 04/13/23 documented as of this encounter
--- OUTSIDE RECORDS SUMMARY | 2024-05-21 15:45 | XMS_ITS | Encounter Summary ---
Author Organization [facility] Address [address] [place] [address] Care Team Providers Care Deburring Machine Operator Name Role Phone Phil Rodriguez MD Primary Care Provider Unavail able Ashley Rosado APRN Primary Care Provider Unav ailable Triston Bailey MD Unavailable [phone] Remedios Warren PA Unavailable Unavailable Umang Corado MINE SUPERVISOR Unavailable Johana Lizarraga MD Primary Care Provider Chanda Soria MINE SUPERVISOR Unavailable Susie Starr DO Primary Care Provider Johana Lizarraga MD Primary Care Provider Susie Starr DO Primary Care Provider Phil Rodriguez MD Primary Care Provider Unavail able Susie Starr DO Primary Care Provider [phone] Loreto Albert MD Unavailable [phone] Lizbeth Schilling APRN Primary Care Provider [phone] Susie Starr DO Primary Care Provider [phone] Encounter Details Date Type Department Care Team Description 01/28/2017 Release of Information Medical Records [address] [place] [id number] Abstract, Provider Social History Tobacco Use Types [...] [facility] you attend [facility] or rastafarian services? More than 4 times per year 04/13/2023 Do you belong to any clubs o r organizations such as lutheran groups, unions, fraternal or athletic groups, or [...] on filedocumented in this encounter Care Teams Deburring Machine Operator Relationship Specialty Start Date End Date Phil Rodriguez MD PCP - General Internal Medicine 12/15/14 09/19/19 Ashley Rosado APRN PCP - General Internal Medicine 09/20/19 06/27/22 Johana Lizarraga MD [address] [place] [address] [place] [address] PCP - General Internal Medicine 06/28/22 11/30/22 Susie Starr, DO [address] [place] [address] [place] [address] PCP - General Internal Medicine 12/01/22 12/01/22 Johana Lizarraga MD [address] [place] [address] [place] [address] PCP - General Internal Medicine 12/02/22 12/29/[address] [address] PCP - General Internal Medicine 12/30/22 12/30/22 Phil Rodriguez MD PCP - General Internal Medicine 01/04/23 01/10/[address] [address] PCP - General Internal Medicine 01/11/23 02/01/24 Lizbeth Schilling, REO ASSET MANAGER [address] [place] [address] PCP - General Internal Medicine 02/02/24 02/11/[address] [address] PCP - General Internal Medicine 02/12/24 Triston Bailey MD [address] [place] [address] [place] [address] Quill Picking Machine Operator Cardiovascular Disease 06/10/20 Remedios Warren PA [address] [place] [address] [place] [address] Cardiology 12/08/21 Umang Corado NP [address] [place] [address] [place] [address] Specialist Cardiology 02/23/22 Chanda Soria NP [address] [place] [address] [place] [address] Cardiology 08/11/22 Loreto Albert MD [address] [place] [address] Internal Medicine 04/13/23 documented as of this encounter
--- OUTSIDE RECORDS SUMMARY | 2024-05-21 15:45 | XMS_ITS | Encounter Summary ---
Author Organization [facility] Address [address] [place] [address] Care Team Providers Care District Supervisor Name Role Phone Ashley Rosado APRN Primary Care Provider Triston Franks MD Unavailable Remedios Warren Unavailable Unavailable Umang Corado MANAGER FITNESS Unavailable Johana Lizarraga MD Primary Care Provider Chanda Soria NP Unavailable Susie Starr DO Primary Care Provider Johana Lizarraga MD Primary Care Provider Susie Starr DO Primary Care Provider Phil Rodriguez MD Primary Care Provider Unavail able Susie Starr DO Primary Care Provider [phone] Loreto Albert MD Unavailable [phone] Lizbeth Schilling APRN Primary Care Provider [phone] Susie Starr DO Primary Care Provider [phone] Encounter Details Date Type Department Care Team Description 01/31/2020 [facility] Medical Records [address] [place] [id number] Abstract, Provider Social History Tobacco Use Types [...] week 04/13/2023 How often do you attend [facility] or adventism services? More than 4 times per year [...] have Coronavirus / COVID-19? No / Unsure 01/10/2020 1:31 PM EDT documented as of this encounter Plan of Treatment Not on file documented as of this encounter Visit Diagnoses Not on filedocumented in this encounter Care Teams District Supervisor Relationship Specialty Start Date End Date Ashley Rosado APRN PCP - General Internal Medicine 09/20/19 06/27/22 Johana Lizarraga MD [address] [place] [address] [place] [address] PCP - General Internal Medicine 06/28/22 11/30/22 Susie Starr, DO [address] [place] [address] PCP - General Internal Medicine 12/01/22 12/01/22 Johana Lizarraga MD [address] [place] [address] [place] [address] PCP - General Internal Medicine 12/02/22 12/29/22 [facility], [address] [place] [address] PCP - General Internal Medicine 12/30/22 12/30/22 Phil Rodriguez MD [address] [place] [address] PCP - General Internal Medicine 01/04/23 01/10/23 [facility] [address] [place] [address] PCP - General Internal Medicine 01/11/23 02/01/24 Lizbeth Schilling, HATCHERY EMPLOYEE [address] [place] [address] PCP - General Internal Medicine 02/02/24 02/11/24 [facility] [address] [place] [address] PCP - General Internal Medicine 02/12/24 Triston Bailey MD [address] [place] [address] [place] [address] Solutions Analyst Cardiovascular Disease 06/10/20 Remedios Warren PA [address] [place] [address] Cardiology 12/08/21 Umang Corado NP [address] [place] [address] Specialist Cardiology 02/23/22 Chanda Soria NP [address] [place] [address] [address] Cardiology 08/11/22 Loreto Albert MD [address] [place] [address] Internal Medicine 04/13/23 documented as of this encounter
--- OUTSIDE RECORDS SUMMARY | 2024-05-21 15:45 | XMS_ITS | Encounter Summary ---
Author Organization [facility] Address [address] [place] [address] Care Team Providers Care Corporate Communications Specialist Name Role Phone Ashley Rosado APRN Primary Care Provider Triston Franks MD Unavailable Remedios Warren Unavailable Unavailable Umang Corado INVESTIGATOR OPERATOR Unavailable [phone] Johana Lizarraga MD Primary Care Provider Chanda Soria NP Unavailable Susie Starr DO Primary Care Provider Johana Lizarraga MD Primary Care Provider Susie Starr DO Primary Care Provider Phil Rodriguez MD Primary Care Provider Unavail able Susie Starr DO Primary Care Provider [phone] Loreto Albert MD Unavailable [phone] Lizbeth Schilling APRN Primary Care Provider Susie Starr DO Primary Care Provider [phone] Encounter Details Date Type Department Care Team Description 02/19/2020 [facility] Medical Records [address] [place] [address] Abstract, Provider Social History Tobacco Use Types [...] you attend [facility] or hoahaoism services? More than 4 times per year 04/13/2023 Do you belong to any clubs o r organizations such as hoahaoism groups, unions, fraternal or athletic groups, or [...] ways by your partner or ex-partner? No 12 / Within the last year, have y ou [...] Date/Time Associated Diagnosis Comments OUTSIDE LAB Routine 02/19/2020 documented in this encounter Results * OUTSIDE LAB (02/19/2020) Provider Default LAB documented in this encounter Visit Diagnoses Not on filedocumented in this encounter Care Teams Corporate Communications Specialist Relationship Specialty Start Date End Date Ashley Rosado APRN PCP - General Internal Medicine 09/20/19 06/27/22 Johana Lizarraga MD [address] [place] [address] [place] [address] PCP - General Internal Medicine 06/28/22 11/30/22 Susie Starr DO [address] [place] [address] PCP - General Internal Medicine 12/01/22 12/01/22 Johana Lizarraga MD [address] [place] [address] [place] [address] PCP - General Internal Medicine 12/02/22 12/29/22 [facility], [address] [place] [address] PCP - General Internal Medicine 12/30/22 12/30/22 Phil Rodriguez MD [address] [place] [address] PCP - General Internal Medicine 01/04/23 01/10/23 [facility], [address] [place] [address] PCP - General Internal Medicine 01/11/23 02/01/24 Lizbeth Schilling, PICKER TENDER HELPER [address] [place] [address] PCP - General Internal Medicine 02/02/24 02/11/24 [facility], [address] [place] [address] PCP - General Internal Medicine 02/12/24 Triston Bailey [place] [address] Nailing Machine Operator Cardiovascular Disease 06/10/20 Remedios Warren PA [address] [facility] [place] [address] Cardiology 12/08/21 Umang Corado NP [address] [place] [address] Specialist Cardiology 02/23/22 Chanda Soria NP [address] [place] [address] Cardiology 08/11/22 Loreto Albert MD [address] [place] [address] Internal Medicine 04/13/23 documented as of this encounter
--- OUTSIDE RECORDS SUMMARY | 2024-05-21 15:46 | XMS_ITS | Encounter Summary ---
Author Organization [facility] Address [address] [place] [address] Care Team Providers Care Dependency Director Name Role Phone Phil Rodriguez MD Primary Care Provider Unavail able Ashley Rosado APRN Primary Care Provider Unav ailable Triston Bailey MD Unavailable Remedios Warren PA Unavailable Unavailable Umang Corado NP Unavailable [phone] Johana Lizarraga MD Primary Care Provider Chanda Soria CLINICAL RESEARCH NURSE Unavailable Susie Starr DO Primary Care Provider Johana Lizarraga MD Primary Care Provider Susie Starr DO Primary Care Provider Phil Rodriguez MD Primary Care Provider Unavail able Susie Starr DO Primary Care Provider [phone] Loreto Albert MD Unavailable [phone] Lizbeth Schilling APRN Primary Care Provider [phone] Susie Starr DO Primary Care Provider [phone] Encounter Details Date Type Department Care Team Description 09/05/2016 Product Responsibility Liaison Report Medical Records [address] [place] [address] Triston Allred MD, MD Social History Tobacco [...] week 04/13/2023 How often do you attend [facility] or quaker services? More than 4 times per year 04/13/2023 Do you belong to any clubs o r organizations such as scientologist groups, unions, fraternal or athletic groups, or [...] on filedocumented in this encounter Care Teams Dependency Director Relationship Specialty Start Date End Date Phil Rodriguez MD PCP - General Internal Medicine 12/15/14 09/19/19 Ashley Rosado APRN PCP - General Internal Medicine 09/20/19 06/27/22 Johana Lizarraga MD [address] [place] [address] [place] [address] PCP - General Internal Medicine 06/28/22 11/30/22 Susie Starr, DO [address] [place] [address] PCP - General Internal Medicine 12/01/22 12/01/22 Johana Lizarraga MD [address] [place] [address] [place] [address] PCP - General Internal Medicine 12/02/22 12/29/22 [facility] [address] [place] [address] PCP - General Internal Medicine 12/30/22 12/30/22 Phil Rodriguez MD PCP - General Internal Medicine 01/04/23 01/10/[address] [address] PCP - General Internal Medicine 01/11/23 02/01/24 Lizbeth Schilling, PLUMBING ENGINEERING DRAFTSPERSON [address] [place] [address] PCP - General Internal Medicine 02/02/24 02/11/[address] [address] PCP - General Internal Medicine 02/12/24 Triston Bailey MD [address] [place] [address] [place] [address] Transit Survey Worker Cardiovascular Disease 06/10/20 Remedios Warren PA [address] [place] [address] [place] [address] Cardiology 12/08/21 Umang Corado NP [address] [place] [address] [place] [address] Specialist Cardiology 02/23/22 Chanda Soria NP [address] [place] [address] [place] [address] Cardiology 08/11/22 Loreto Albert MD [address] [place] [address] Internal Medicine 04/13/23 documented as of this encounter
--- OUTSIDE RECORDS SUMMARY | 2024-05-21 15:46 | XMS_ITS | Encounter Summary ---
Author Organization [facility] Address [address] [place] [address] Care Team Providers Care Javascript Front End Developer Name Role Phone Triston Bailey MD Unavailable Remedios Warren Unavailable Unavailable Umang Corado AIRCRAFT INSTRUMENT TESTER Unavailable Chanda Soria AIRCRAFT INSTRUMENT TESTER Unavailable [phone] Johana Lizarraga MD Primary Care Provider Susie Starr DO Primary Care Provider Phil Rodriguez MD Primary Care Provider Unavail able Susie Starr DO Primary Care Provider Loreto Albert MD Unavailable [phone] Lizbeth Schilling APRN Primary Care Provider [phone] Susie Starr DO Primary Care Provider [phone] Reason for Visit * Reason Onset Date Comments Prior Authorization 12/28/2022 Prolia Encounter Details Date Type Department Care Team Description 12/28/2022 Telephone [facility] - [address] [id number] Mervat Cruz MD [address] [place] [id number] Prior Authorization (Prolia) Social History Tobacco Use Types Packs/Day Years [...] 04/13/2023 How often do you attend [facility] or mandaen services? More than 4 times per year 04/13/2023 Do you belong to any clubs o r organizations such as zoroastrianism groups, unions, fraternal or athletic groups, or [...] encounter Miscellaneous Notes * Telephone Encounter - Patricia Durbin - 01/27/2023 1:21 PM EDT Fax received back from [facility] States prior auth for Prolia was approved expires 01/28/24 Copy of insurance approval was attached to paperwork. * Telephone Encounter - Patricia Durbin - 01/27/2023 10:56 AM EDT Pt has no separate pharmacy benefit plans with [facility]. [facility] Prior Auth form was filled and faxed over to insurance with supporting documents. Will await fax to come in with decision being made for Prolia. * Telephone Encounter - Aga Lara - 12/28/2022 4:48 PM EDT Request received for verification of prior authorization for Prolia - request submitted through [employer] - waiting for response as of 12/28/22 documented in this encounter Plan of Treatment Not on file documented as of this encounter Visit Diagnoses Not on filedocumented in this encounter Care Teams Javascript Front End Developer Relationship Specialty Start Date End Date Johana Lizarraga MD [address] [place] [address] PCP - General Internal Medicine 12/02/22 12/29/22 [facility], [address] [place] [address] PCP - General Internal Medicine 12/30/22 12/30/22 Phil Rodriguez MD [address] [place] [address] PCP - General Internal Medicine 01/04/23 01/10/23 [facility], [address] [place] [address] PCP - General Internal Medicine 01/11/23 02/01/24 Lizbeth Schilling APRN [address] [place] [address] PCP - General Internal Medicine 02/02/24 02/11/24 [facility], [address] [place] [address] PCP - General Internal Medicine 02/12/24 Triston Bailey MD [address] [place] [address] [place] [address] Coin Machine Service Repairer Cardiovascular Disease 06/10/20 Remedios Warren PA [address] [place] [address] [place] [address] Cardiology 12/08/21 Umang Corado NP [address] [place] [address] [place] [address] Specialist Cardiology 02/23/22 Chanda Soria NP [address] [place] [address] Breann Hui [address] [place] [address] Cardiology 08/11/22 Loreto Albert MD [address] [place] [address] Internal Medicine 04/13/23 documented as of this encounter
--- OUTSIDE RECORDS SUMMARY | 2024-05-21 15:46 | XMS_ITS | Encounter Summary ---
Author Organization [facility] Address [address] [place] [address] Care Team Providers Care Barrel Straightener Name Role Phone Phil Rodriguez MD Primary Care Provider Unavail able Ashley Rosado APRN Primary Care Provider Unav ailable Triston Bailey MD Unavailable Remedios Warren PA Unavailable Unavailable Umang Corado CUSTOMER CARE CONSULTANT Unavailable [phone] Johana Lizarraga MD Primary Care Provider Chanda Soria CUSTOMER CARE CONSULTANT Unavailable Susie Starr DO Primary Care Provider Johana Lizarraga MD Primary Care Provider Susie Starr DO Primary Care Provider Phil Rodriguez MD Primary Care Provider Unavail able Susie Starr DO Primary Care Provider [phone] Loreto Albert MD Unavailable [phone] Lizbeth Schilling APRN Primary Care Provider [phone] Susie Starr DO Primary Care Provider [phone] Encounter Details Date Type Department Care Team Description 10/13/2016 Lab Aide Report Medical Records [address] [place] [address] Vince [facility] II Social History Tobacco Use [...] week 04/13/2023 [facility] you attend [facility] or [facility] services? More than 4 times [...] on filedocumented in this encounter Care Teams Barrel Straightener Relationship Specialty Start Date End Date Phil Rodriguez MD PCP - General Internal Medicine 12/15/14 09/19/19 Ashley Rosado APRN PCP - General Internal Medicine 09/20/19 06/27/22 Johana Lizarraga MD [address] [place] [address] Dr [place], [place] [address] PCP - General Internal Medicine 06/28/22 11/30/22 Susie Starr, DO [address] [place] [address] PCP - General Internal Medicine 12/01/22 12/01/22 Johana Lizarraga MD [address] [place] [address] [place] [address] PCP - General Internal Medicine 12/02/22 12/29/22 [facility] [address] [place] [address] PCP - General Internal Medicine 12/30/22 12/30/22 Phil Rodriguez MD PCP - General Internal Medicine 01/04/23 01/10/[address] [address] PCP - General Internal Medicine 01/11/23 02/01/24 Lizbeth Schilling, COUPON AND BOND COLLECTION CLERK [address] [place] [address] PCP - General Internal Medicine 02/02/24 02/11/[address] [address] PCP - General Internal Medicine 02/12/24 Triston Bailey MD [address] [place] [address] [place] [address] Tube Molder Fiberglass Cardiovascular Disease 06/10/20 Remedios Warren PA [address] [facility] [place] [address] Cardiology 12/08/21 Umang Corado NP [address] [place] [address] [place] [address] Specialist Cardiology 02/23/22 Chanda Soria NP [address] [place] [address] [place] [address] Cardiology 08/11/22 Loreto Albert MD [address] [place] [address] Internal Medicine 04/13/23 documented as of this encounter
--- OUTSIDE RECORDS SUMMARY | 2024-05-21 15:46 | XMS_ITS | Encounter Summary ---
Author Organization [facility] Address [address] [place] [address] Care Team Providers Care Exercise Equipment Specialist Name Role Phone Phil Rodriguez MD Primary Care Provider Unavail able Ashley Rosado APRN Primary Care Provider Unav ailable Triston Bailey MD Unavailable Remedios Warren PA Unavailable Unavailable Umang Corado TAPE TRANSFERRER Unavailable Johana Lizarraga MD Primary Care Provider Chanda Soria TAPE TRANSFERRER Unavailable Susie Starr DO Primary Care Provider Johana Lizarraga MD Primary Care Provider Susie Starr DO Primary Care Provider Phil Rodriguez MD Primary Care Provider Unavail able Susie Starr DO Primary Care Provider Loreto Albert MD Unavailable [phone] Lizbeth Schilling APRN Primary Care Provider [phone] Susie Starr DO Primary Care Provider [phone] Reason for Visit * Reason Onset Date Comments TEST RESULTS 01/04/2018 Encounter Details Date Type Department Care Team Description 01/04/2018 Telephone General Surgery [address] [place] [address] Marisela Li MD [address] [place] [address] TEST RESULTS Social History Tobacco Use Types Packs/Day Years [...] attend [facility] or restorationism services? More than 4 times per year [...] encounter Miscellaneous Notes * Telephone Encounter - Phil Rodriguez MD - 01/04/2018 12:05 PM EDT Vascular consultation is not indicated at this time - I have ordered a carotid ultrasound, decisionre: whether the pt requires a vascular consult will be based on these results (and patient's sxs orlack thereof). * Telephone Encounter - Sabra Abdalla M.A. - 01/04/2018 11:56 AM EDT I spoke with the patient, who had her daughter on the phone with her and relayed the providers message. I informed them of her recommendation to f/u with Vascular. They will contact the patients PCP to ask for a referral. Encounter sent to Dr Rodriguez and Dr Li for an FYI * Telephone Encounter - Sabra Abdalla M.A. - 01/04/2018 11:55 AM EDT ----- Message from Marisela Li MD sent at 01/02/2018 5:37 PM EDT ----- Please contact the patient. The neck u/s shows that the LN is still mildly enlarged but has decreased in size since her last u/s. The LN otherwise appears normal. Again seen was plaque within her carotid artery. She should be following up with a vascular surgeon at some point in this regard. No role for additional neck u/s for the LNs. If she develops increase in swelling in the neck, she should contact the office for follow-up. documented in this encounter Plan of Treatment Not on file documented as of this encounter Results * EXTRACRANIAL ARTERIES STUDY, COMPL (01/16/2018 9:48 AM EDT) 01/16/2018 11:0 2 AM EDT Impressions [facility] EXTERNAL - 01/16/2018 11:06 AM EDT IMPRESSION: ??50-69% stenosis of the internal carotid arteries bilaterally, based on velocity. Analysis is based on grayscale and velocity measurements which have been correlated with the NASCET criteria for measuring internal carotid artery stenosis. Narrative [facility] OTHER EXTERNAL - 01/16/2018 11:06 AM EDT EXTRACRANIAL ARTERIES STUDY, COMPL BILATERAL CAROTID ARTERIAL ULTRASOUND Clinical History: Carotid calcifications. Comparison: Carotid ultrasound 12/07/2016. Technique and Findings: Benitez scale, color and pulsed Doppler imaging were utilized. ?? Echogenic shadowing and nonshadowing plaques are seen in the bilateral internal, external, and common carotid arteries, with less than 50% stenoses on visual inspection bilaterally. ??Both carotid systems demonstrate normal waveforms with brisk systolic upstrokes. Measured peak systolic velocities are as follows: Right ICA: 126 cm/s. Right ICA/CCA ratio: 1.3. Left ICA: 127 cm/s. Left ICA/CCA ratio: 1.3. Both vertebral arteries demonstrate normal antegrade flow. ? Procedure Note Sharon Bolaños MD - 01/16/2018 EXTRACRANIAL ARTERIES STUDY, COMPL BILATERAL CAROTID ARTERIAL ULTRASOUND Clinical History: Carotid calcifications. Comparison: Carotid ultrasound 12/07/2016. Technique and Findings: Benitez scale, color and pulsed Doppler imaging wereutilized. Echogenic shadowing and nonshadowing plaques are seen in the bilateralinternal, external, and common carotid arteries, with less than 50% stenoses on visual inspectionbilaterally. Both carotid systems demonstrate normal waveforms with brisk systolicupstrokes. Measured peak systolic velocities are as follows: Right ICA: 126 cm/s. Right ICA/CCA ratio: 1.3. Left ICA: 127 cm/s. Left ICA/CCA ratio: 1.3. Both vertebral arteries demonstrate normal antegrade flow. IMPRESSION IMPRESSION: 50-69% stenosis of the internal carotid arteries bilaterally,based on velocity. Analysis is based on grayscale and velocity measurements which have beencorrelated with the NASCET criteria for measuring internal carotid artery stenosis. Phil Rodriguez MD VASCULAR ULTRASOUND [facility] EXTERNAL documented in this encounter Visit Diagnoses Diagnosis Carotid artery calcification, unspecified laterality- Primary Carotid artery calcification, unspecified laterality documented in this encounter Care Teams Exercise Equipment Specialist Relationship Specialty Start Date End Date Phil Rodriguez MD PCP - General Internal Medicine 12/15/14 09/19/19 Ashley Rosado APRN PCP - General Internal Medicine 09/20/19 06/27/22 Johana Lizarraga MD [address] [place] [address] [place] [address] PCP - General Internal Medicine 06/28/22 11/30/22 [facility] [address] [place] [address] PCP - General Internal Medicine 12/01/22 12/01/22 Johana Lizarraga MD [address] [place] [address] PCP - General Internal Medicine 12/02/22 12/29/22 [facility] [address] [place] [address] PCP - General Internal Medicine 12/30/22 12/30/22 Phil Rodriguez MD PCP - General Internal Medicine 01/04/23 01/10/23 [facility] [address] [place] [address] PCP - General Internal Medicine 01/11/23 02/01/24 Lizbeth Schilling APRN [address] [place] [address] PCP - General Internal Medicine 02/02/24 02/11/24 [facility] [address] [place] [address] PCP - General Internal Medicine 02/12/24 Triston Bailey MD [address] [place] [address] Accounts Receivable Manager Cardiovascular Disease 06/10/20 Remedios Warren PA [address] [place] [address] Cardiology 12/08/21 Umang Corado NP [address] [facility] [place] [address] Specialist Cardiology 02/23/22 Chanda Soria NP [address] [place] [address] Cardiology 08/11/22 Loreto Albert MD [address] [place] [address] Internal Medicine 04/13/23 documented as of this encounter
--- OUTSIDE RECORDS SUMMARY | 2024-05-21 15:46 | XMS_ITS | Encounter Summary ---
Author Organization [facility] Address [address] [place] [address] Care Team Providers Care Business [employer] Dean Name Role Phone Ashley Rosado APRN Primary Care Provider Unav Triston Jaffe MD Unavailable Remedios Warren Unavailable Unavailable Umang Corado TICKER INSTALLER Unavailable Johana Lizarraga MD Primary Care Provider Chanda Soria NP Unavailable Susie Starr DO Primary Care Provider Johana Lizarraga MD Primary Care Provider Susie Starr DO Primary Care Provider Phil Rodriguez MD Primary Care Provider Unavail able Susie Starr DO Primary Care Provider Loreto Albert MD Unavailable [phone] Lizbeth Schilling APRN Primary Care Provider Susie Starr DO Primary Care Provider Reason for Visit * Reason Comments E-prescribe Rx Request Encounter Details Date Type Department Care Team Description 12/29/2020 Refill Adult Medicine [address] [id number] Lizbeth Schilling APRN [address] [place], [place] [phone] E-prescribe Rx Request Social History Tobacco Use [...] do you attend [facility] or confucianist services? More than 4 times per year [...] have Coronavirus / COVID-19? No / Unsure 2021 11:02 AM EDT documented as of this encounter Miscellaneous Notes * Telephone Encounter - Lorrie De La Cruz M.A. - 12/29/2020 1:54 PM EDT Faxed to pharmacy * Telephone Encounter - Cecile Mayo M.A - 12/29/2020 1:54 PM EDT Faxed to pharmacy * Telephone Encounter - Elisha Sierra C.M.A. - 12/29/2020 11:41 AM EDT Drew 12/07/20 New 01/04/21 Lab Results Component Value Date NA 140 08/24/2020 K 4.6 08/24/2020 CO2 26 08/24/2020 CL 107 08/24/2020 BUN 30 08/24/2020 CREAT 1.26 08/24/2020 GLU 139 08/24/2020 CA 9.2 08/24/2020 GFR 42 08/24/2020 * Telephone Encounter - Erika Jackson - 12/29/2020 9:29 AM EDT Patient would like script to be: E-PRESCRIBED/FAXED TO PHARMACY WHEN WAS THE PATIENT'S LAST APPOINTMENT IN ADULT MEDICINE? 12/07/20 WHEN WAS THE LAST TIME THE PATIENT SAW THEIR PCP? 06/29/20 Does patient have an upcoming appointment? Yes 01/04/21 (THE MEDICATION REQUESTED IS ON THE MED [...] N/A Patients current insurance carrier is: Payor: [facility] MCR / Plan: HMO $0 [place] [id number] / Product Type: HMO [id number] documented in this encounter Plan of Treatment Not on file documented as of this encounter Visit Diagnoses Diagnosis HYPERTENSION Essential hypertension, benign documented in this encounter Care Teams Business [employer] Dean Relationship Specialty Start Date End Date Ashley Rosado APRN PCP - General Internal Medicine 09/20/19 06/27/22 Johana Lizarraga MD [address] [place] [address] [place] [address] PCP - General Internal Medicine 06/28/22 11/30/22 [facility], [address] [place] [address] PCP - General Internal Medicine 12/01/22 12/01/22 Johana Lizarraga MD [address] [place] [address] [place] [address] PCP - General Internal Medicine 12/02/22 12/29/22 [facility], [address] [place] [address] PCP - General Internal Medicine 12/30/22 12/30/22 Phil Rodriguez MD [address] [place] [address] PCP - General Internal Medicine 01/04/23 01/10/23 [facility], [address] [place] [address] PCP - General Internal Medicine 01/11/23 02/01/24 Lizbeth Schilling APRN [address] [place] [address] PCP - General Internal Medicine 02/02/24 02/11/24 Zacharyemily Susie, DO [address] [place] [address] PCP - General Internal Medicine 02/12/24 Triston Bailey MD [address] [place] [address] [place] [address] Criminalist Technician Cardiovascular Disease 06/10/20 Remedios Warren PA [address] [place] [address] [place] [address] Cardiology 12/08/21 Umang Corado NP [address] [place] [address] [place] [address] Specialist Cardiology 02/23/22 Chanda Soria NP [address] [place] [address] [address] Cardiology 08/11/22 Loreto Albert MD [address] [place] [address] Internal Medicine 04/13/23 documented as of this encounter
--- OUTSIDE RECORDS SUMMARY | 2024-05-21 15:46 | XMS_ITS | Encounter Summary ---
Author Organization [facility] Address [address] [place] [address] Care Team Providers Care Gas Mask Assembler Name Role Phone Phil Rodriguez MD Primary Care Provider Unavail able Tony Rodriguez MD Primary Care Provider Unavail able Phil Rodriguez MD Primary Care Provider Unavail able Ashley Rosado APRN Primary Care Provider Unav ailable Triston Bailey MD Unavailable Remedios Warren Unavailable Unavailable Umang Corado CELLULAR BIOLOGIST Unavailable Johana Lizarraga MD Primary Care Provider Chanda Soria NP Unavailable Susie Starr DO Primary Care Provider [phone] Johana Lizarraga MD Primary Care Provider Susie Starr DO Primary Care Provider [phone] Phil Rodriguez MD Primary Care Provider Unavail able Susie Starr DO Primary Care Provider [phone] Loreto Albert MD Unavailable [phone] Lizbeth Schilling APRN Primary Care Provider Susie Starr DO Primary Care Provider [phone] Encounter Details Date Type Department Care Team Description 02/28/2013 Occupational Therapist Assistants Report Medical Records [address] [place] [address] Alok Keith MD Social History Tobacco Use [...] How often do you attend chur or synagogue services? More than 4 times per year 04/13/2023 Do you belong to any clubs o r organizations such as zoroastrian groups, unions, fraternal or athletic groups, or [...] on filedocumented in this encounter Care Teams Gas Mask Assembler Relationship Specialty Start Date End Date Phil Rodriguez MD PCP - General 03/07/05 12/04/14 Tony Rodriguez MD PCP - General Internal Medicine 12/05/14 12/14/14 Phil Rodriguez MD PCP - General Internal Medicine 12/15/14 09/19/19 Ashley Rosado APRN PCP - General Internal Medicine 09/20/19 06/27/22 Joahna Lizarraga MD [address] [place] [address] [place] [address] PCP - General Internal Medicine 06/28/22 11/30/22 [facility], [address] [place] [address] PCP - General Internal Medicine 12/01/22 12/01/22 Johana Lizarraga MD [address] [place] [address] [place] [address] PCP - General Internal Medicine 12/02/22 12/29/22 [facility] [address] [place] [address] PCP - General Internal Medicine 12/30/22 12/30/22 Phil Rodriguez MD PCP - General Internal Medicine 01/04/23 01/10/23 [facility], [address] [place] [address] PCP - General Internal Medicine 01/11/23 02/01/24 Lizbeth Schilling, SENIOR BUSINESS INTELLIGENCE ANALYST [address] [place] [address] PCP - General Internal Medicine 02/02/24 02/11/24 [facility], [address] [place] [address] PCP - General Internal Medicine 02/12/24 Triston Bailey MD [address] [place] [address] [place] [address] Integrity Specialist Cardiovascular Disease 06/10/20 Remedios Warren PA [address] [facility] [place] [address] Cardiology 12/08/21 Umang Corado NP [address] [place] [address] [place] [address] Specialist Cardiology 02/23/22 Chanda Soria NP [address] [place] [address] Breann Hui [address] [place] [address] Cardiology 08/11/22 Loreto Albert MD [address] [place] [address] Internal Medicine 04/13/23 documented as of this encounter
--- OUTSIDE RECORDS SUMMARY | 2024-05-21 15:46 | XMS_ITS | Encounter Summary ---
Author Organization [facility] Address [address] [place] [address] Care Team Providers Care Hoisting Pile Driving Engineer Name Role Phone Phil Rodriguez MD Primary Care Provider Unavail able Ashley Rosado APRN Primary Care Provider Unav ailable Triston Bailey MD Unavailable Remedios Warren PA Unavailable Unavailable Umang Corado NP Unavailable Johana Lizarraga MD Primary Care Provider Chanda Soria THERMIT WELDING MACHINE OPERATOR Unavailable Susie Starr DO Primary Care Provider Johana Lizarraga MD Primary Care Provider Susie Starr DO Primary Care Provider Phil Rodriguez MD Primary Care Provider Unavail able Susie Starr DO Primary Care Provider Loreto Albert MD Unavailable [phone] Lizbeth Schilling APRN Primary Care Provider Susie Starr DO Primary Care Provider Reason for Referral * Radiology Services (Routine) - Closed Specialty Diagnoses / Procedures Referred By Contdeacon t Referred To Contact Radiology Diagnoses Pulmonary nodules Procedures CAT SCAN OF CHEST NO CONTRAST Mely Ellis MD [address] [place] [address] [address]ee [place] [address] [place] [address] Referral ID Status Reason Start Date Expiration Date V isits Requested Visits Authorized CCA APPROVED Closed 07/11/2017 09/10/2017 1 1 Encounter Details Date Type Department Care Team Description 08/11/2016 Orders Only Rheumatology - [place] [address] [place] [address] Mely Ellis MD Pulmonary nodules (Primary Dx) Social History Tobacco Use Types [...] do you attend [facility] or [facility] services? More than 4 times per year 04/13/2023 Do you belong to any clubs o r organizations such as confucianist groups, unions, fraternal or athletic groups, or [...] place to sleep or slept in a detention (including now)? No 04/13/2023 Sex Assigned at Date Recorded Not on file Job Start Date Occupation Industry Not on file Not on file Not on file documented as of this encounter Plan of Treatment Not on file documented as of this encounter Results * CAT SCAN OF CHEST NO CONTRAST (08/24/2017 11:23 AM EDT) 08/24/2017 4:56 PM EDT Impressions AMAIRANI BAZZI OTHER EXTERNAL - 08/24/2017 5:17 PM EDT IMPRESSION: Stable right pulmonary nodules. These have been stable for almost 2 years. Narrative AMAIRANI BAZZI OTHER EXTERNAL - 08/24/2017 5:17 PM EDT CAT SCAN OF CHEST NO CONTRAST HISTORY: Follow-up pulmonary nodules. TECHNIQUE: Multiple axial images are obtained from the thoracic inlet through the upper abdomen. ? COMPARISON: Chest CT 06/22/2016 and 10/06/2015 RADIATION DOSAGE: ctdi 7.29 mGy. FINDINGS: Nodule in the lower pole of the right lobe of the thyroid is again noted. This has been previously biopsied under ultrasound and shown to be benign. Subpleural nodules in the right upper lobe are unchanged. Other nodules in the right lung described on the previous report are unchanged. There are no new nodules.. There is no pleural effusion, infiltrate, pneumothorax, cardiomegaly, or pericardial effusion. No lymphadenopathy is seen. There is calcification of the coronary arteries. A few diverticuli of the splenic flexure are again noted. The partially visualized upper abdominal organs are otherwise unremarkable. No suspicious bone lesions seen. There is degenerative change of the spine. Anterior fusion plate of the lower cervical spine is again noted. Procedure Note Sharon Bolaños MD - 08/24/2017 CAT SCAN OF CHEST NO CONTRAST HISTORY: Follow-up pulmonary nodules. TECHNIQUE: Multiple axial images are obtained from the thoracic inletthrough the upper abdomen. COMPARISON: Chest CT 06/22/2016 and 10/06/2015 RADIATION DOSAGE: ctdi 7.29 mGy. FINDINGS: Nodule in the lower pole of the right lobe of the thyroid isagain noted. This has been previously biopsied under ultrasound and shown to be benign. Subpleural nodules in the right upper lobe are unchanged. Other nodules in the right lung described on the previous report areunchanged. There are no new nodules.. There is no pleural effusion, infiltrate, pneumothorax, cardiomegaly, orpericardial effusion. No lymphadenopathy is seen. There is calcification of the coronaryarteries. A few diverticuli of the splenic flexure are again noted. The partiallyvisualized upper abdominal organs are otherwise unremarkable. No suspicious bone lesions seen. There is degenerative change of thespine. Anterior fusion plate of the lower cervical spine is again noted. IMPRESSION IMPRESSION: Stable right pulmonary nodules. These have been stable foralmost 2 years. Mely Ellis MD CT SCANS AMAIRANI BAZZI OTHER EXTERNAL documented in this encounter Visit Diagnoses Diagnosis Pulmonary nodules- Primary Other nonspecific abnormal finding of lung field Pulmonary nodules Other nonspecific abnormal finding of lung field documented in this encounter Care Teams Hoisting Pile Driving Engineer Relationship Specialty Start Date End Date Phil Rodriguez MD PCP - General Internal Medicine 12/15/14 09/19/19 Ashley Rosado APRN PCP - General Internal Medicine 09/20/19 06/27/22 Johana Lizarraga MD [address] [place] [address] [place] [address] PCP - General Internal Medicine 06/28/22 11/30/22 [facility], [address] [place] [address] PCP - General Internal Medicine 12/01/22 12/01/22 Johana Lizarraga MD [address] [place] [address] [place] [address] PCP - General Internal Medicine 12/02/22 12/29/22 Susie Starr, [address] [facility] [place] [place] [address] PCP - General Internal Medicine 12/30/22 12/30/22 Phil Rodriguez MD PCP - General Internal Medicine 01/04/23 01/10/23 Susie Starr, [address] [facility] [place] [address] PCP - General Internal Medicine 01/11/23 02/01/24 Shakir Lizbeth, HUMAN RESOURCES CLERK [address] [place] [address] PCP - General Internal Medicine 02/02/24 02/11/24 Ro Susie, DO [address] [place] [address] PCP - General Internal Medicine 02/12/24 Triston Bailey MD [address] [place] [address] [place] [address] Professor Of Theology Cardiovascular Disease 06/10/20 Remedios Warren, STEPHAN [address] [place] [address] [place] [address] Cardiology 12/08/21 Umang Corado NP [address] [place] [address] [place] [address] Specialist Cardiology 02/23/22 Chanda Soria NP [address] [place] [address] [address] Cardiology 08/11/22 Loreto Alebrt MD [address] [place] [address] Internal Medicine 04/13/23 documented as of this encounter
--- OUTSIDE RECORDS SUMMARY | 2024-05-21 15:46 | XMS_ITS | Encounter Summary ---
Author Organization [facility] Address [address] [place] [address] Care Team Providers Care Auditing Clerk Name Role Phone Phil Rodriguez MD Primary Care Provider Unavail able Ashley Rosado APRN Primary Care Provider Unav ailable Triston Bailey MD Unavailable Remedios Warren PA Unavailable Unavailable Umang Corado EXECUTIVE KITCHEN MANAGER Unavailable Johana Lizarraga MD Primary Care Provider Chanda Soria EXECUTIVE KITCHEN MANAGER Unavailable Susie Starr DO Primary Care Provider [phone] Johana Lizarraga MD Primary Care Provider Susie Starr DO Primary Care Provider Phil Rodriguez MD Primary Care Provider Unavail able Susie Starr DO Primary Care Provider [phone] Loreto Albert MD Unavailable [phone] Lizbeth Schilling APRN Primary Care Provider [phone] Susie Starr DO Primary Care Provider [phone] Encounter Details Date Type Department Care Team Description 01/18/2019 SNF discharge summary Medical Records [address] [place] [id number] Abstract, Provider Social History Tobacco Use Types [...] How often do you attend [facility] or spiritism services? More than 4 times per year 04/13/2023 Do you belong to any clubs o r organizations such as religious groups, unions, fraternal or athletic groups, or [...] on filedocumented in this encounter Care Teams Auditing Clerk Relationship Specialty Start Date End Date Phil Rodriguez MD PCP - General Internal Medicine 12/15/14 09/19/19 Ashley Rosado APRN PCP - General Internal Medicine 09/20/19 06/27/22 Johana Lizarraga MD [address] [place] [address] [place] [address] PCP - General Internal Medicine 06/28/22 11/30/22 Susie Starr, DO [address] [place] [address] [place] [address] PCP - General Internal Medicine 12/01/22 12/01/22 Johana Lizarraga MD [address] [place] [address] [place] [address] PCP - General Internal Medicine 12/02/22 12/29/[address] [address] PCP - General Internal Medicine 12/30/22 12/30/22 Phil Rodriguez MD PCP - General Internal Medicine 01/04/23 01/10/[address] [address] PCP - General Internal Medicine 01/11/23 02/01/24 Lizbeth Schilling, SCHOOL CLERK [address] [place] [address] PCP - General Internal Medicine 02/02/24 02/11/[address] [address] PCP - General Internal Medicine 02/12/24 Triston Bailey MD [address] [place] [address] [place] [address] Software Engineer Sales Cardiovascular Disease 06/10/20 Remedios Warren PA [address] [place] [address] [place] [address] Cardiology 12/08/21 Umang Corado NP [address] [place] [address] [place] [address] Specialist Cardiology 02/23/22 Chanda Soria NP [address] [place] [address] [place] [address] Cardiology 08/11/22 Loreto Albert MD [address] [place] [address] Internal Medicine 04/13/23 documented as of this encounter
--- OUTSIDE RECORDS SUMMARY | 2024-05-21 15:46 | XMS_ITS | Encounter Summary ---
Author Organization [facility] Address [address] [place] [address] Care Team Providers Care Sports Management Internship Name Role Phone Triston Bailey MD Unavailable Remedios Warren Unavailable Unavailable Umang Corado BIT AND SHANK DEPARTMENT SUPERVISOR Unavailable Chnada Soria NP Unavailable Susie Starr DO Primary Care Provider Loreto Albert MD Unavailable [phone] Lizbeth Schilling APRN Primary Care Provider Susie Starr DO Primary Care Provider Reason for Visit * Reason Onset Date Comments Error 01/11/2023 Encounter Details Date Type Department Care Team Description 01/11/2023 Telephone Adult Medicine [address] [id number] Susie Starr DO [address] [place], [place] [id number] Error Social History Tobacco Use Types Packs/Day Years [...] you attend [facility] or advent services? More than 4 times per year 04/13/2023 Do you belong to any clubs o r organizations such as sikhism groups, unions, fraternal or athletic groups, or [...] suspected to have Coronavirus/COVID-19? No / Unsure 01/11/2023 1:43 PM EDT documented as of this encounter Plan of Treatment Not on file documented as of this encounter Visit Diagnoses Not on filedocumented in this encounter Care Teams Sports Management Internship Relationship Specialty Start Date End Date Susie Starr DO [address] [place] [address] PCP - General Internal Medicine 01/11/23 02/01/24 Lizbeth Schilling APRN [address] [place] [address] PCP - General Internal Medicine 02/02/24 02/11/24 Ro Susie, DO [address] [place] [address] PCP - General Internal Medicine 02/12/24 Triston Bailey MD [address] [place] [address] [place] [address] Transliterator Cardiovascular Disease 06/10/20 Remedios Warren, STEPHAN [address] [place] [address] [place] [address] Cardiology 12/08/21 Umang Corado NP [address] [place] [address] [place] [address] Specialist Cardiology 02/23/22 Chanda Soria NP [address] [place] [address] [address] Cardiology 08/11/22 Loreto Albert MD [address] [place] [address] Internal Medicine 04/13/23 documented as of this encounter
--- OUTSIDE RECORDS SUMMARY | 2024-05-21 15:46 | XMS_ITS | Encounter Summary ---
Author Organization [facility] Address [address] [place] [address] Care Team Providers Care Occupational Therapist Aide Name Role Phone Triston Bailey MD Unavailable Remedios Warren Unavailable Unavailable Umang Corado HYPERBARIC TECHNICIAN Unavailable Chanda Soria NP Unavailable Susie Starr DO Primary Care Provider [phone] Loreto Albert MD Unavailable [phone] Lizbeth Schilling APRN Primary Care Provider Susie Starr DO Primary Care Provider Reason for Referral * Non DELLA (Priority) - Authorized/Booked Specialty Diagnoses / Procedures Referred By Contac t Referred To Contact Nephrology Diagnoses Chronic renal insufficiency Procedures REFERRAL TO NEPHROLOGY Johana Lizarraga MD [address] [place] [phone] [facility] [address] [place] [address] Referral ID Status Reason Start Date Expiration Date V isits Requested Visits Authorized [id number] Authorized/B ooked 02/14/2023 06/30/2023 1 1 Encounter Details Date Type Department Care Team Description 02/14/2023 Orders Only Internal Medicine - [address], [address] [place] [address] Johana Lizarraga MD [address] [place] [phone] Stage 3b chronic kidney disease (HCC) (Primary Dx) Social History Tobacco Use Types [...] How often do you attend [facility] or confucianism services? More than 4 times per year 04/13/2023 Do you belong to any clubs o r organizations such as yarsani groups, unions, fraternal or athletic groups, or [...] suspected to have Coronavirus/COVID-19? No / Unsure 01/17/2023 2:01 PM EDT documented as of this encounter Plan of Treatment Not on file documented as of this encounter Visit Diagnoses Diagnosis Stage 3b chronic kidney disease (HCC)- Primary documented in this encounter Care Teams Occupational Therapist Aide Relationship Specialty Start Date End Date Susie Starr DO [address] [place] [address] PCP - General Internal Medicine 01/11/23 02/01/24 Lizbeth Schilling APRN [address] [place] [address] PCP - General Internal Medicine 02/02/24 02/11/24 Susie Starr DO [address] [place] [address] PCP - General Internal Medicine 02/12/24 Triston Bailey MD [address] [place] [address] [place] [address] Bulldozer Press Operator Cardiovascular Disease 06/10/20 Remedios Warren PA [address] [place] [address] [place] [address] Cardiology 12/08/21 Umang Corado NP [address] [place] [address] [place] [address] Specialist Cardiology 02/23/22 Chanda Soria NP [address] [place] [address] [address] Cardiology 08/11/22 Loreto Albert MD [address] [place] [address] Internal Medicine 04/13/23 documented as of this encounter
--- OUTSIDE RECORDS SUMMARY | 2024-05-21 15:46 | XMS_ITS | Encounter Summary ---
Author Organization [facility] Address [address] [place] [address] Care Team Providers Care Aoc Plans Intelligence Officer Name Role Phone Phil Rodriguez MD Primary Care Provider Unavail able Ashley Rosado APRN Primary Care Provider Unav ailable Triston Bailey MD Unavailable [phone] Remedios Warren PA Unavailable Unavailable Umang Corado ECONOMIC ANALYST Unavailable Johana Lizarraga MD Primary Care Provider Chanda Soria ECONOMIC ANALYST Unavailable Susie Starr DO Primary Care Provider Johana Lizarraga MD Primary Care Provider Susie Starr DO Primary Care Provider Phil Rodriguez MD Primary Care Provider Unavail able Susie Starr DO Primary Care Provider [phone] Loreto Albert MD Unavailable [phone] Lizbeth Schilling APRN Primary Care Provider [phone] Susie Starr DO Primary Care Provider [phone] Encounter Details Date Type Department Care Team Description 12/24/2015 Driver Report Medical Records [address] [place] [address] Vince Page II Social History Tobacco Use [...] do you attend [facility] or [facility] services? More than 4 times per year 04/13/2023 Do you belong to any clubs o r organizations such as catholic groups, unions, fraternal or athletic groups, or [...] on filedocumented in this encounter Care Teams Aoc Plans Intelligence Officer Relationship Specialty Start Date End Date Phil Rodriguez MD PCP - General Internal Medicine 12/15/14 09/19/19 Ashley Rosado APRN PCP - General Internal Medicine 09/20/19 06/27/22 Johana Lizarraga MD [address] [place] [address] Dr [place], [place] [address] PCP - General Internal Medicine 06/28/22 11/30/22 Susie Starr, DO [address] [place] [address] PCP - General Internal Medicine 12/01/22 12/01/22 Johana Lizarraga MD [address] [place] [address] [place] [address] PCP - General Internal Medicine 12/02/22 12/29/22 [facility] [address] [place] [address] PCP - General Internal Medicine 12/30/22 12/30/22 Phil Rodriguez MD PCP - General Internal Medicine 01/04/23 01/10/[address] [address] PCP - General Internal Medicine 01/11/23 02/01/24 Lizbeth Schilling, DATA ENTRY REPRESENTATIVE [address] [place] [address] PCP - General Internal Medicine 02/02/24 02/11/[address] [address] PCP - General Internal Medicine 02/12/24 Triston Bailey MD [address] [place] [address] [place] [address] Ear Specialist Cardiovascular Disease 06/10/20 Remedios Warren PA 2 [facility] [place] [address] Cardiology 12/08/21 Umang Corado NP [address] [place] [address] [place] [address] Specialist Cardiology 02/23/22 Chanda Soria NP [address] [place] [address] [place] [address] Cardiology 08/11/22 Loreto Albert MD [address] [place] [address] Internal Medicine 04/13/23 documented as of this encounter
--- OUTSIDE RECORDS SUMMARY | 2024-05-21 15:46 | XMS_ITS | Encounter Summary ---
Author Organization [facility] Address [address] [place] [address] Care Team Providers Care Blocker Polishing Name Role Phone Phil Rodriguez MD Primary Care Provider Unavail able Tony Rodriguez MD Primary Care Provider Unavail able Phil Rodriguez MD Primary Care Provider Unavail able Ashley Rosado APRN Primary Care Provider Unav ailable Triston Bailey MD Unavailable Remedios Warren Unavailable Unavailable Umang Corado COPIER TECHNICIAN Unavailable [phone] Johana Lizarraga MD Primary Care Provider Chanda Soria NP Unavailable Susie Starr DO Primary Care Provider [phone] Johana Lizarraga MD Primary Care Provider Susie Starr DO Primary Care Provider [phone] Phil Rodriguez MD Primary Care Provider Unavail able Susie Starr DO Primary Care Provider [phone] Loreto Albert MD Unavailable [phone] Lizbeth Schilling APRN Primary Care Provider [phone] Susie Starr DO Primary Care Provider [phone] Encounter Details Date Type Department Care Team Description 11/07/2011 Neurology Epilepsy Physician Report Medical Records [address] [place] [address] Triston Allred MD, MD Social History Tobacco [...] do you attend [facility] or buddhism services? More than 4 times per year 04/13/2023 Do you belong to any clubs o r organizations such as caodaism groups, unions, fraternal or athletic groups, or [...] on filedocumented in this encounter Care Teams Blocker Polishing Relationship Specialty Start Date End Date Phil Rodriguez MD PCP - General 03/07/05 12/04/14 Tony Rodriguez MD PCP - General Internal Medicine 12/05/14 12/14/14 Phil Rodriguez MD PCP - General Internal Medicine 12/15/14 09/19/19 Ashley Rosado APRN PCP - General Internal Medicine 09/20/19 06/27/22 Johana Lizarraga MD [address] [place] [address] [place] [address] PCP - General Internal Medicine 06/28/22 11/30/22 [facility], [address] [place] [address] PCP - General Internal Medicine 12/01/22 12/01/22 Johana Lizarraga MD [address] [place] [address] [place] [address] PCP - General Internal Medicine 12/02/22 12/29/22 [facility] [address] [place] [address] PCP - General Internal Medicine 12/30/22 12/30/22 Phil Rodriguez MD PCP - General Internal Medicine 01/04/23 01/10/23 [facility], [address] [place] [address] PCP - General Internal Medicine 01/11/23 02/01/24 Lizbeth Schilling APRN [address] [place] [address] PCP - General Internal Medicine 02/02/24 02/11/24 [facility], [address] [place] [address] PCP - General Internal Medicine 02/12/24 Triston Bailey MD [address] [place] [address] [place] [address] Road Grader Operator Cardiovascular Disease 06/10/20 Remedios Warren PA [address] [facility] [place] [address] Cardiology 12/08/21 Umang Corado NP [address] [place] [address] [place] [address] Specialist Cardiology 02/23/22 Chanda Soria NP [address] [place] [address] [address]ui [address] [place] [address] Cardiology 08/11/22 Loreto Albert MD [address] [place] [address] Internal Medicine 04/13/23 documented as of this encounter
--- OUTSIDE RECORDS SUMMARY | 2024-05-21 15:46 | XMS_ITS | Encounter Summary ---
Author Organization [facility] Address [address] [place] [address] Care Team Providers Care Refining Still Operator Name Role Phone Phil Rodriguez MD Primary Care Provider Unavail able Tony Rodriguez MD Primary Care Provider Unavail able Phil Rodriguez MD Primary Care Provider Unavail able Ashley Rosado APRN Primary Care Provider Unav ailable Triston Bailey MD Unavailable Remedios Warren Unavailable Unavailable Umang Corado HIDE SELECTOR Unavailable [phone] Johana Lizarraga MD Primary Care Provider Chanda Soria NP Unavailable Susie Starr DO Primary Care Provider [phone] Johana Lizarraga MD Primary Care Provider Susie Starr DO Primary Care Provider [phone] Phil Rodriguez MD Primary Care Provider Unavail able Susie Starr DO Primary Care Provider [phone] Loreto Albert MD Unavailable [phone] Lizbeth Schilling APRN Primary Care Provider Susie Starr DO Primary Care Provider [phone] Encounter Details Date Type Department Care Team Description 12/13/2013 Senior Application Security Consultant Report Medical Records [address] [place] [address] Alok Keith MD Social History Tobacco Use [...] How often do you attend ch[facility] or adventism services? More than 4 times [...] on filedocumented in this encounter Care Teams Refining Still Operator Relationship Specialty Start Date End Date Phil Rodriguez MD PCP - General 03/07/05 12/04/14 Tony Rodriguez MD PCP - General Internal Medicine 12/05/14 12/14/14 Phil Rodriguez MD PCP - General Internal Medicine 12/15/14 09/19/19 Ashley Rosado APRN PCP - General Internal Medicine 09/20/19 06/27/22 Johana Lizarraga MD [address] [place] [address] [place] [address] PCP - General Internal Medicine 06/28/22 11/30/22 [facility], [address] [place] [address] PCP - General Internal Medicine 12/01/22 12/01/22 Johana Lizarraga MD [address] [place] [address] [place] [address] PCP - General Internal Medicine 12/02/22 12/29/22 [facility] [address] [place] [address] PCP - General Internal Medicine 12/30/22 12/30/22 Phil Rodriguez MD PCP - General Internal Medicine 01/04/23 01/10/23 [facility], [address] [place] [address] PCP - General Internal Medicine 01/11/23 02/01/24 Lizbeth Schilling, HEMATOLOGY ONCOLOGY CONSULTANT [address] [place] [address] PCP - General Internal Medicine 02/02/24 02/11/24 [facility], [address] [place] [address] PCP - General Internal Medicine 02/12/24 Triston Bailey MD [address] [place] [address] [place] [address] Snow Blower Cardiovascular Disease 06/10/20 Remedios Warren PA [address] [facility] [address] Cardiology 12/08/21 Umang Corado NP [address] [place] [address] [place] [address] Specialist Cardiology 02/23/22 Chanda Soria NP [address] [place] [address] [place] [address] Cardiology 08/11/22 Loreto Albert MD [address] [place] [address] Internal Medicine 04/13/23 documented as of this encounter
--- OUTSIDE RECORDS SUMMARY | 2024-05-21 15:46 | XMS_ITS | Clinical Summary ---
Author Organization [facility], Address [address] [place] [address] [place] [address] Phone Care Team Providers Care Student Counselor Name Role Phone Kira King MD Primary Care Provider [phone] Allergies Active Allergy Reactions Criticality Noted Date Comments Naproxen Nausea And Vomiting, Other (see comments) 06/01/2016 Penicillins Other (see comments) 04/14/2005 Medications cetirizine (ZyrTEC) 10 MG tablet Take 10 mg by mouth 1 (one) time each day if needed Active hydroCHLOROthia zide (HYDRODIURIL) 25 MG tablet Take 25 mg by mouth 1 (one) time each day Active fluticasone HFA (FLOVENT HFA) 220 MCG/ACT inhaler Inhale 1 puff 2 (two) times a day Active LORazepam (ATIVAN) 2 MG tablet Take 2 mg by mouth 2 (two) times a day if needed Active aspirin 81 MG tablet Take 81 mg by mouth 1 (one) time each day Active ipratropium-alb uterol (DUO-NEB) 0.5-2.5 mg/3 mL nebulizer solution Take 3 mL by nebulization every 6 (six) hours if needed Active fluticasone (FLONASE) 50 MCG/ACT nasal spray Administer 2 sprays into each nostril 1 (one) time each day Active alendronate (FOSAMAX) 70 MG tablet Take 70 mg by mouth every 7 (seven) days Active lisinopril (PRINIVIL,ZESTR IL) 20 MG tablet Take 20 mg by mouth 1 (one) time each day Active albuterol (2.5 MG/3ML) 0.083% nebulizer solution Inhale ONE vial by nebulization four times daily Active Albuterol Sulfate (PROAIR HFA IN) Inhale 2 puffs every 4 (four) hours if needed Active Lancaster-3 1000 MG capsule Take by mouth Active Multiple Vitamins-Minera ls (MULTIVITAMIN ADULT PO) Take by mouth Active meclizine (ANTIVERT) 12.5 MG tablet Take 12.5 mg by mouth 0 Active pravastatin (PRAVACHOL) 20 MG tablet Take 20 mg by mouth 1 (one) time each day Active sertraline (ZOLOFT) 50 MG tablet Take 1 tablet by mouth 1 (one) time each day Active loratadine (CLARITIN REDITABS) 10 MG dispersible tablet Take 1 tablet by mouth 1 (one) time each day Active latanoprost (XALATAN) 0.005 % ophthalmic solution Apply as directed Active glucose blood (FREESTYLE LITE) test strip USE TWICE DAILY BEFOR MEALS DIRECTED 1 Active glucose blood test strip Comments: Filled Date: Oct 08 2014 12:00AM Patient Notes: U BID BEFORE MEALS UTD Duration: 50 5 Active FeroSul 325 (65 Fe) MG tablet TAKE 1 TABLET(325 MG) BY MOUTH 1 TIME EACH DAY WITH BREAKFAST 30 tablet 11 2 Active polyvinyl alcohol (LIQUIFILM TEARS) 1.4 % ophthalmic solution INSTILL 1 DROP INTO BOTH EYES FOUR TIMES DAILY 3 Active oxyCODONE (ROXICODONE) 5 MG immediate release tablet TAKE 1 TABLET BY MOUTH EVERY 4 HOURS NEEDED FOR PAIN 3 Active metFORMIN XR (GLUCOPHAGE-XR) 500 MG 24 hr tablet Take 500 mg by mouth in the morning and 500 mg in the evening. Take with meals. 3 Active lisinopril 10 MG tablet Take 10 mg by mouth 1 (one) time each day 3 Active isosorbide mononitrate (IMDUR) 30 MG 24 hr tablet Take 60 mg by mouth 1 (one) time each day 3 Active ezetimibe (ZETIA) 10 MG tablet Take 10 mg by mouth 1 (one) time each day 3 Active Trulicity 0.75 MG/0.5ML solution pen-injector ADMINISTER 0.75 MG UNDER THE SKIN 1 TIME A WEEK 3 Active clopidogrel (PLAVIX) 75 MG tablet Take 75 mg by mouth 1 (one) time each day 3 Active Cholecalciferol (Vitamin D3) 50 MCG (2000 UT) tablet Take 1 tablet by mouth 1 (one) time each day 3 Active Cholecalciferol (Vitamin D3) 1.25 MG (71626 UT) capsule Take 1 capsule by mouth 1 (one) time per week 3 Active Lubricant Eye Drops 0.5 % solution INSTILL 1 DROP INTO BOTH EYES TWICE DAILY 3 Active azithromycin (ZITHROMAX) 250 MG tablet TAKE 1 TABLET BY MOUTH DAILY FOR 4 DAYS 3 Active aspirin 81 MG chewable tablet CHEW 1 TABLET BY MOUTH EVERY DAY 3 Active amLODIPine (NORVASC) 2.5 MG tablet Take 2.5 mg by mouth 1 (one) time each day 3 Active Praluent 75 MG/ML solution auto-injector INJECT 75 MG INTO THE SKIN EVERY 14 DAYS 3 Active Active Problems Problem Noted Date Diagnosed Date Polyneuropathy 07/02/2020 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 She denies any chest pain with exertion. We will order an echocardiogram to evaluate for any underlying structural heart disease as the cause of her symptoms of shortness of breath. Personal history of COVID-19 05/12/2020 Overview (06/24/2020): May 10, 2020 Stage 3a chronic kidney disease 07/09/2019 Overview (04/27/2020): Update for Diagnosis Load Carotid artery stenosis 01/16/2018 Overview (06/24/2020): Asymptomatic: 50 - 69% bilaterally 12/2017 Last Assessment & Plan: The patient has known bilateral carotid artery stenosis. Her last carotid artery duplex was in March 2020 and it showed less than 50% stenosis in the ICA bilaterally. The patient has been unable to tolerate statins in the past. We will attempt a trial with rosuvastatin 5 mg orally every other day. The patient is also on aspirin 81 mg orally daily. Hypertension 03/06/2006 Overview (06/24/2020): Last Assessment & Plan: The patient has a history of arterial hypertension. The patient's blood pressure today was noted to be well controlled. We'll continue the current antihypertensive medication regimen. Hyperlipidemia 04/14/2005 Overview (06/24/2020): Last Assessment & Plan: The patient has a history of hyperlipidemia. She has experienced significant myalgias with the use of statins in the past. We recently tried pravastatin but this also resulted in myalgias. The medication was discontinued. We will start a trial of rosuvastatin 5 mg orally every other day. We will see if the patient is able to tolerate this low-dose statin therapy. If not, given her significant hyperlipidemia, we may need to consider ezetimibe or a PCSK9 inhibitor. Type 2 diabetes mellitus 04/14/2005 Acute nontraumatic kidney injury Nephrolithiasis Type 2 diabetes mellitus with renal manifestatio ns Iron deficiency anemia Neuropathy due to diabetes mellitus Resolved Problems Problem Noted Date Diagnosed Date Resolved Date Thyroid nodule 02/21/2020 Anti-nuclear factor detected 02/21/2020 Elevated erythrocyte sedimentation rate 02/21/2020 Immunizations Name Administration Dates Next Due Hepatitis B 02/24/2009 Influenza Split High Dose Pr eservative Free IM 03/14/2019,01/11/2018,01/09/2017 Influenza TIV (IM) 02/25/2015, 4,01/23/2013,02/02,01/20/2011,12/29/2009,12/29/2008 ,03/06/2008,02/27/2007,02/13/2006 PPD Test 02/03/2012 Pneumococcal Conjugate 13-Valent 01/09/2017 Pneumococcal Polysaccharide 02/03/2012 Tdap 07/16/2010 Family History Medical History Relation Comments Diabetes Father Hypertension Father Diabetes Mother Hypertension Mother Relation Status Comments Father Mother Social History Tobacco Use Types Packs/Day Years Used Date Smoking Tobacco: Former Cigarettes Q uit: 04/24/1989 Alcohol Use Standard Drinks/Week Comments No 0 (1 standard drink = 0.6 oz pur e alcohol) Comments Unknown Sex and Gender Information Value Date Recorded Sex Assigned at Not on file Legal Sex Female 4:31 PM EST Gender Identity Not on file Sexual Orientation Not on file Last Filed Vital Signs Vital Sign Reading Time Taken Comments Blood Pressure 114/58 09/14/2022 4:18 PM EDT Pulse - - Temperature - - Respiratory Rate - - Oxygen Saturation - - Inhaled Oxygen Concentration - - Weight 68.4 kg (150 lb 12.8 oz) 021 10:48 AM EDT Height 154.9 cm (5' 1 ) 07/10/2019 1:11 PM EDT Body Mass Index 28.49 07/10/2019 1:11 PM EDT Plan of Treatment Health Maintenance Due Date Last Done Comments Diabetes: Ophthalmology Exam 07/09/2019 Diabetes: Pedal Pulse Checked 07/09/2019 Diabetes: Sensory Foot Exam 07/09/2019 Diabetes: Visual Foot Exam 07/09/2019 Diabetes: Hemoglobin A1C 11/24/2022 023, 07/12/2021, 07/08/2021, Additional history exists Influenza Vaccine (#1) 2023 2, 01/04/2021, 02/27/2020, Additional history exists Hepatitis B Vaccine Aged Out 02/24/2009 No longe r eligible based on patient's age to complete this topic Pneumococcal Vaccine: 65+ Years Completed 01/09/2017, 02/03/2012 Procedures Procedure Name Priority Date/Time Associated Diagnosis Comments HEMOGLOBIN A1C Routine 07/21/2020 2:21 PM EDT Stage 3a chronic kidney disease (HCC) from Last 3 Months or Most Recently Relevant to Health Maintenance Results * (ABNORMAL) Hemoglobin A1c (07/21/2020 2:21 PM EDT) Hemoglobin A1C 6.9(H) (4.0-5.6) % [facility] Comment: MONITORING: In known diabetic patients, hemoglobin A1c targets should be discussed with health care provider. DIAGNOSTIC USE: ??The [place] Diabetes Association (ADA) and the World Health Organization (WHO) recommend the use of HbA1c to diagnose diabetes using a threshold of 6.5%. Patients who have an HbA1c between 5.7% and 6.4% are considered at increased risk for developing diabetes in the future. CAUTION: Falsely low HbA1c results may be observed in patients with hemolytic anemia, homozygous forms of abnormal hemoglobin (e.g. SS, CC, SC), , recent blood loss or hemoglobin F greater than 7%. Fructosamine may be used as an alternate test in these cases. REFERENCE: ADA: Standards of Medical Care in Diabetes 2020, The Journal of Clinical and Applied Research and Education Volume 43, Supplement 1 Testing performed or reported by [facility], a Service of [facility], [address] [place] [address] Gail Forbes MD, Sheet Finisher Blood (Blood, Venous) 07/21/2020 2:21 PM EDT 07/21/2020 2:24 PM EDT us [facility] BLOOD ORDERABLES Final Res ult [facility] from Last 3 Months or Most Recently Relevant to Health Maintenance Insurance [facility] CARE DUAL SNP ([id number]) STEPHAN YANEZ [id number] Care Teams Student Counselor Relationship Specialty Start Date End Date Kira King MD [address] [place] [address] [place] [id number] PCP - General Internal Medicine 06/25/20
--- OUTSIDE RECORDS SUMMARY | 2024-05-21 15:46 | XMS_ITS | Encounter Summary ---
Author Organization [facility] Address [address] [place] [address] Care Team Providers Care Autocad Name Role Phone Phil Rodriguez MD Primary Care Provider Unavail able Tony Rodriguez MD Primary Care Provider Unavail able Phil Rodriguez MD Primary Care Provider Unavail able Ashley Rosado APRN Primary Care Provider Unav ailable Triston Bailey MD Unavailable Remedios Warren Unavailable Unavailable Umang Corado NURSING PROFESSOR Unavailable [phone] Johana Lizarraga MD Primary Care Provider Chanda Soria NURSING PROFESSOR Unavailable Susie Starr DO Primary Care Provider [phone] Johana Lizarraga MD Primary Care Provider Susie Starr DO Primary Care Provider [phone] Phil Rodriguez MD Primary Care Provider Unavail able Susie Starr DO Primary Care Provider [phone] Loreto Albert MD Unavailable [phone] Lizbeth Schilling APRN Primary Care Provider Susie Starr DO Primary Care Provider [phone] Encounter Details Date Type Department Care Team Description 03/06/2014 Court Registry Officer Report Medical Records [address] [place] [address] Courniotes, J. Ezio II Social History Tobacco Use Types Packs/Day [...] How often do you attend chur or muslim services? More than 4 times [...] place to sleep or slept in a residential (including now)? No 04/13/2023 Sex Assigned at Date Recorded Not on file Job Start Date Occupation Industry Not on file Not on file Not on file documented as of this encounter Plan of Treatment Not on file documented as of this encounter Visit Diagnoses Not on filedocumented in this encounter Care Teams Autocad Relationship Specialty Start Date End Date Phil Rodriguez MD PCP - General 03/07/05 12/04/14 Tony Rodriguez MD PCP - General Internal Medicine 12/05/14 12/14/14 Phil Rodriguez MD PCP - General Internal Medicine 12/15/14 09/19/19 Ashley Rosado APRN PCP - General Internal Medicine 09/20/19 06/27/22 Johana Lizarraga MD [address] [place] [address] [place] [address] PCP - General Internal Medicine 06/28/22 11/30/22 [facility], [address] [place] [address] PCP - General Internal Medicine 12/01/22 12/01/22 Johana Lizarraga MD [address] [place] [address] [place] [address] PCP - General Internal Medicine 12/02/22 12/29/22 [facility] [address] [place] [address] PCP - General Internal Medicine 12/30/22 12/30/22 Phil Rodriguez MD PCP - General Internal Medicine 01/04/23 01/10/23 [facility], [address] [place] [address] PCP - General Internal Medicine 01/11/23 02/01/24 Lizbeth Schilling, MANAGER ENGINE [address] [place] [address] PCP - General Internal Medicine 02/02/24 02/11/24 [facility], [address] [place] [address] PCP - General Internal Medicine 02/12/24 Triston Bailey MD [address] [place] [address] [place] [address] Pediatric Nephrologist Cardiovascular Disease 06/10/20 Remedios Warren PA [address] [facility] [place] [address] Cardiology 12/08/21 Umang Corado NP [address] [place] [address] [place] [address] Specialist Cardiology 02/23/22 Chanda Soria NP [address] [place] [address] Breann Hui [address] [place] [address] Cardiology 08/11/22 Loreto Albert MD [address] [place] [address] Internal Medicine 04/13/23 documented as of this encounter
--- OUTSIDE RECORDS SUMMARY | 2024-05-21 15:46 | XMS_ITS | Encounter Summary ---
Author Organization [facility] Address [address] [place] [address] Care Team Providers Care Mix House Tender Name Role Phone Phil Rodriguez MD Primary Care Provider Unavail able Ashley Rosado APRN Primary Care Provider Unav ailable Triston Bailey MD Unavailable Remedios Warren PA Unavailable Unavailable Umang Corado AVIATION WARFARE SYSTEMS OPERATOR Unavailable [phone] Johana Lizarraga MD Primary Care Provider Chanda Soria AVIATION WARFARE SYSTEMS OPERATOR Unavailable Susie Starr DO Primary Care Provider Johana Lizarraga MD Primary Care Provider Susie Starr DO Primary Care Provider Phil Rodriguez MD Primary Care Provider Unavail able Susie Starr DO Primary Care Provider [phone] Loreto Albert MD Unavailable [phone] Lizbeth Schilling APRN Primary Care Provider [phone] Susie Starr DO Primary Care Provider [phone] Encounter Details Date Type Department Care Team Description 01/04/2019 [facility] Medical Records [address] [place] [id number] Abstract, Provider Social History Tobacco Use Types [...] often do you attend [facility] or islam services? More than 4 times per year 04/13/2023 Do you belong to any clubs o r organizations such as jewish groups, unions, fraternal or athletic groups, or [...] on filedocumented in this encounter Care Teams Mix House Tender Relationship Specialty Start Date End Date Phil Rodriguez MD PCP - General Internal Medicine 12/15/14 09/19/19 Ashley Rosado APRN PCP - General Internal Medicine 09/20/19 06/27/22 Johana Lizarraga MD [address] [place] [address] [place] [address] PCP - General Internal Medicine 06/28/22 11/30/22 Susie Starr, DO [address] [place] [address] [place] [address] PCP - General Internal Medicine 12/01/22 12/01/22 Johana Lizarraga MD [address] [place] [address] [place] [address] PCP - General Internal Medicine 12/02/22 12/29/[address] [address] PCP - General Internal Medicine 12/30/22 12/30/22 Phil Rodriguez MD PCP - General Internal Medicine 01/04/23 01/10/[address] [address] PCP - General Internal Medicine 01/11/23 02/01/24 Lizbeth Schilling, HORTICULTURE WORKER [address] [place] [address] PCP - General Internal Medicine 02/02/24 02/11/[address] [address] PCP - General Internal Medicine 02/12/24 Triston Bailey MD [address] [place] [address] [place] [address] Dust Operator Cardiovascular Disease 06/10/20 Remedios Warren PA [address] [place] [address] [place] [address] Cardiology 12/08/21 Umang Corado NP [address] [place] [address] [place] [address] Specialist Cardiology 02/23/22 Chanda Soria NP [address] [place] [address] [place] [address] Cardiology 08/11/22 Loreto Albert MD [address] [place] [address] Internal Medicine 04/13/23 documented as of this encounter
--- OUTSIDE RECORDS SUMMARY | 2024-05-21 15:46 | XMS_ITS | Encounter Summary ---
Author Organization [facility] Address [address] [place] [address] Care Team Providers Care Cost Control Analyst Name Role Phone Phil Rodriguez MD Primary Care Provider Unavail able Ashley Rosado APRN Primary Care Provider Unav ailable Triston Bailey MD Unavailable Remedios Warren PA Unavailable Unavailable Umang Corado FILTER PRESS TENDER Unavailable Johana Lizarraga MD Primary Care Provider Chanda Soria FILTER PRESS TENDER Unavailable Susie Starr DO Primary Care Provider [phone] Johana Lizarraga MD Primary Care Provider Susie Starr DO Primary Care Provider [phone] Phil Rodriguez MD Primary Care Provider Unavail able Susie Starr DO Primary Care Provider [phone] Loreto Albert MD Unavailable [phone] Lizbeth Schilling APRN Primary Care Provider [phone] Susie Starr DO Primary Care Provider [phone] Encounter Details Date Type Department Care Team Description 11/21/2015 Walk In Clinic Visit Medical Records [address] [place] [address] Social History Tobacco Use Types Packs/Day Years [...] How often do you attend [facility] or quaker services? More than 4 times [...] place to sleep or slept in a half-way (including now)? No 04/13/2023 Sex Assigned at Date Recorded Not on file Job Start Date Occupation Industry Not on file Not on file Not on file documented as of this encounter Plan of Treatment Not on file documented as of this encounter Visit Diagnoses Not on filedocumented in this encounter Care Teams Cost Control Analyst Relationship Specialty Start Date End Date Phil Rodriguez MD PCP - General Internal Medicine 12/15/14 09/19/19 Ashley Rosado APRN PCP - General Internal Medicine 09/20/19 06/27/22 Johana Lizarraga MD [address] [place] [address] [place] [address] PCP - General Internal Medicine 06/28/22 11/30/22 Susie Starr, DO [address] [place] [address] PCP - General Internal Medicine 12/01/22 12/01/22 Johana Lizarraga MD [address] [place] [address] [place] [address] PCP - General Internal Medicine 12/02/22 12/29/[address] [address] PCP - General Internal Medicine 12/30/22 12/30/22 Phil Rodriguez MD PCP - General Internal Medicine 01/04/23 01/10/[address] [address] PCP - General Internal Medicine 01/11/23 02/01/24 Lizbeth Schilling, FIELD AGRONOMIST [address] [place] [address] PCP - General Internal Medicine 02/02/24 02/11/[address] [address] PCP - General Internal Medicine 02/12/24 Triston Bailey MD [address] [place] [address] [place] [address] Eyewear Consultant Cardiovascular Disease 06/10/20 Remedios Warren PA [address] [facility] [place] [address] Cardiology 12/08/21 Umang Corado NP [address] [place] [address] [place] [address] Specialist Cardiology 02/23/22 Chanda Soria NP [address] [place] [address] [place] [address] Cardiology 08/11/22 Loreto Albert MD [address] [place] [address] Internal Medicine 04/13/23 documented as of this encounter
--- OUTSIDE RECORDS SUMMARY | 2024-05-21 15:46 | XMS_ITS | Encounter Summary ---
Author Organization [facility] Address [address] [place] [address] Care Team Providers Care Wire Threader Name Role Phone Triston Bailey MD Unavailable [phone] Remedios Warren Unavailable Unavailable Umang Corado YARDAGE CONTROL CLERK Unavailable Chanda Soria NP Unavailable [phone] Phil Rodriguez MD Primary Care Provider Unavail able Susie Starr DO Primary Care Provider Loreto Albert MD Unavailable [phone] Lizbeth Schilling APRN Primary Care Provider [phone] Susie Starr DO Primary Care Provider [phone] Encounter Details Date Type Department Care Team Description 01/10/2023 Orders Only Medical Records [address] [place] [address] Johana Lizarraga MD [address] [place] [phone] Social History Tobacco Use Types Packs/Day Years [...] How often do you attend chur or faith services? More than 4 times per year 04/13/2023 Do you belong to any clubs o r organizations such as confucianist groups, unions, fraPod Inns or athletic groups, or school groups? No [...] Date/Time Associated Diagnosis Comments OUTSIDE MAMMO Routine 11/22/2022 documented in this encounter Results * OUTSIDE MAMMO (11/22/2022) Johana Lizarraga MD RADIOLOGY documented in this encounter Visit Diagnoses Not on filedocumented in this encounter Care Teams Wire Threader Relationship Specialty Start Date End Date Phil Rodriguez MD [address] [place] [address] PCP - General Internal Medicine 01/04/23 01/10/23 Susie Starr, [address] [place] [address] PCP - General Internal Medicine 01/11/23 02/01/24 Lizbeth Schilling, TENANT RELATIONS COORDINATOR [address] [place] [address] PCP - General Internal Medicine 02/02/24 02/11/24 Ro Susie, DO [address] [place] [address] PCP - General Internal Medicine 02/12/24 Triston Bailey MD [address] [place] [address] [place] [address] Web Production Manager Cardiovascular Disease 06/10/20 Remedios Warren PA [address] [place] [address] [place] [address] Cardiology 12/08/21 Umang Corado NP [address] [place] [address] [place] [address] Specialist Cardiology 02/23/22 Chanda Soria NP [address] [place] [address] [address] Cardiology 08/11/22 Loreto Albert MD [address] [place] [address] Internal Medicine 04/13/23 documented as of this encounter
--- OUTSIDE RECORDS SUMMARY | 2024-05-21 15:46 | XMS_ITS | Encounter Summary ---
Author Organization [facility] Address [address] [place] [address] Care Team Providers Care Plastic Joint Maker Name Role Phone Phil Rodriguez MD Primary Care Provider Unavail able Ashley Rosado APRN Primary Care Provider Unav ailable Triston Bailey MD Unavailable Remedios Warren PA Unavailable Unavailable Umang Corado SECRETARIAL TEACHER Unavailable [phone] Johana Lizarraga MD Primary Care Provider Chanda Soria SECRETARIAL TEACHER Unavailable Susie Starr DO Primary Care Provider Johana Lizarraga MD Primary Care Provider Susie Starr DO Primary Care Provider Phil Rodriguez MD Primary Care Provider Unavail able Susie Starr DO Primary Care Provider [phone] Loreto Albert MD Unavailable [phone] Lizbeth Schilling APRN Primary Care Provider [phone] Susie Starr DO Primary Care Provider [phone] Encounter Details Date Type Department Care Team Description 06/30/2016 Loop Tender Report Medical Records [address] [place] [address] Vince Page II Social History Tobacco Use [...] How often do you attend [facility] or roman catholic services? More than 4 times per year [...] on filedocumented in this encounter Care Teams Plastic Joint Maker Relationship Specialty Start Date End Date Phil Rodriguez MD PCP - General Internal Medicine 12/15/14 09/19/19 Ashley Rosado APRN PCP - General Internal Medicine 09/20/19 06/27/22 Johana Lizarraga MD [address] [place] [address] Dr [place], [place] [address] PCP - General Internal Medicine 06/28/22 11/30/22 Susie Starr, DO [address] [place] [address] PCP - General Internal Medicine 12/01/22 12/01/22 Johana Lizarraga MD [address] [place] [address] [place] [address] PCP - General Internal Medicine 12/02/22 12/29/22 [facility] [address] [place] [address] PCP - General Internal Medicine 12/30/22 12/30/22 Phil Rodriguez MD PCP - General Internal Medicine 01/04/23 01/10/[address] [address] PCP - General Internal Medicine 01/11/23 02/01/24 Lizbeth Schilling, VOLTAGE TESTER [address] [place] [address] PCP - General Internal Medicine 02/02/24 02/11/[address] [address] PCP - General Internal Medicine 02/12/24 Triston Bailey MD [address] [place] [address] [place] [address] Cargo Surveyor Cardiovascular Disease 06/10/20 Remedios Warren PA [address] [facility] [place] [address] Cardiology 12/08/21 Umang Corado NP [address] [place] [address] [place] [address] Specialist Cardiology 02/23/22 Chanda Soria NP [address] [place] [address] [place] [address] Cardiology 08/11/22 Loreto Albert MD [address] [place] [address] Internal Medicine 04/13/23 documented as of this encounter
--- OUTSIDE RECORDS SUMMARY | 2024-05-21 15:46 | XMS_ITS | Encounter Summary ---
Author Organization [facility] Address [address] [place] [address] Care Team Providers Care Scrap Hooker Name Role Phone Phil Rodriguez MD Primary Care Provider Unavail able Tony Rodriguez MD Primary Care Provider Unavail able Phil Rodriguez MD Primary Care Provider Unavail able Ashley Rosado APRN Primary Care Provider Unav ailable Triston Bailey MD Unavailable Remdeios Warren Unavailable Unavailable Umang Corado DATA ABSTRACTOR Unavailable Johana Lizarraga MD Primary Care Provider Chanda Soria DATA ABSTRACTOR Unavailable Susie Starr DO Primary Care Provider [phone] Johana Lizarraga MD Primary Care Provider Susie Starr DO Primary Care Provider [phone] Phil Rodriguez MD Primary Care Provider Unavail able Susie Starr DO Primary Care Provider [phone] Loreto Albert MD Unavailable [phone] Lizbeth Schilling APRN Primary Care Provider Susie Starr DO Primary Care Provider [phone] Reason for Visit * Reason Onset Date Comments refill request 10/17/2013 Encounter Details Date Type Department Care Team Description 10/17/2013 Refill OBGYN - [facility] [place] [address] [place] [address] Brayan Peraza MD refill request Social History Tobacco Use [...] do you attend [facility] or quaker services? More than 4 times per year 04/13/2023 Do you belong to any clubs o r organizations such as taoist groups, unions, fraternal or athletic groups, or [...] encounter Miscellaneous Notes * Telephone Encounter - Darlene Torres R.N. - 10/18/2013 9:49 AM EDT Refused by covering provider. This medication was last ordered 12/2011. * Telephone Encounter - Mary Salazar L.P.N. - 10/17/2013 2:[address] Peraza is out of the office. To covering provider for review. Thank you! * Telephone Encounter - Cristel Bingham - 10/17/2013 10:43 AM EDT WHEN WAS THE PATIENTS LAST ANNUAL GREENSKEEPER LABORER EXAM? 03/05/13 Does patient have an upcoming appointment? No appointment schedule not out yet for February - will call back (THE MEDICATION REQUESTED IS ON THE MED LIST ABOVE) Did you check the Pharmacy information above?: YES Indicate how soon the patient needs the script: BY THE END OF THE DAY Patient would like script to be: E-PRESCRIBED/FAXED TO PHARMACY Is the doctor here today?: NO Can the message wait until the doctor returns?: NO Has the patient been told that the prescription will not be filled until the end of the day? YES Payor: [facility] MCR / Plan: O $0 [place] 148 / Product Type: HMO [id number] documented in this encounter Plan of Treatment Not on file documented as of this encounter Visit Diagnoses Not on filedocumented in this encounter Care Teams Scrap Hooker Relationship Specialty Start Date End Date Phil Rodriguez MD PCP - General 03/07/05 12/04/14 Tony Rodriguez MD PCP - General Internal Medicine 12/05/14 12/14/14 Phil Rodriguez MD PCP - General Internal Medicine 12/15/14 09/19/19 Ashlee, Ashley, PRE SALES ARCHITECT PCP - General Internal Medicine 09/20/19 06/27/22 Johana Lizarraga MD [address] [place] [address] [place] [address] PCP - General Internal Medicine 06/28/22 11/30/22 [facility] [address] [place] [address] PCP - General Internal Medicine 12/01/22 12/01/22 Johana Lizarraga MD [address] [place] [address] [place] [address] PCP - General Internal Medicine 12/02/22 12/29/22 [facility] [address] [place] [address] PCP - General Internal Medicine 12/30/22 12/30/22 Phil Rordiguez MD PCP - General Internal Medicine 01/04/23 01/10/23 [facility], [address] [place] [address] PCP - General Internal Medicine 01/11/23 02/01/24 Lizbeth Schilling APRN [address] [place] [address] PCP - General Internal Medicine 02/02/24 02/11/24 [facility], [address] [place] [address] PCP - General Internal Medicine 02/12/24 Triston Bailey MD [address] [place] [address] [place] [address] Information Security Director Cardiovascular Disease 06/10/20 Remedios Warren PA [address] [place] [address] [place] [address] Cardiology 12/08/21 Umang Corado NP 2 [facility] [place] [address] Specialist Cardiology 02/23/22 Chanda Soria NP [address] [place] [address] [address] Cardiology 08/11/22 Loreto Albert MD [address] [place] [address] Internal Medicine 04/13/23 documented as of this encounter
--- OUTSIDE RECORDS SUMMARY | 2024-05-21 15:46 | XMS_ITS | Encounter Summary ---
Author Organization [facility] Address [address] [place] [address] Care Team Providers Care Supervisor Personnel Clerks Name Role Phone Triston Bailey MD Unavailable Remedios Warren Unavailable Unavailable Umang Corado ONLINE COMMUNITY MANAGER Unavailable [phone] Johana Lizarraga MD Primary Care Provider Chanda Soria ONLINE COMMUNITY MANAGER Unavailable [phone] Susie Starr DO Primary Care Provider Johana Lizarraga MD Primary Care Provider [phone] Susie Starr DO Primary Care Provider Phil Rodriguez MD Primary Care Provider Unavail able Susie Starr DO Primary Care Provider [phone] Loreto Albert MD Unavailable [phone] Lizbeth Schilling APRN Primary Care Provider [phone] Susie Starr DO Primary Care Provider [phone] Encounter Details Date Type Department Care Team Description 10/25/2022 Rope Cleaner Report Medical Records [address] [place] [address] Abstract, Provider Social History Tobacco Use Types [...] 04/13/2023 How often do you attend [facility] or christian services? More than 4 times [...] on filedocumented in this encounter Care Teams Supervisor Personnel Clerks Relationship Specialty Start Date End Date Johana Lizarraga MD [address] [place] [address] [place] [address] PCP - General Internal Medicine 06/28/22 11/30/22 Susie Starr, DO [address] [place] [address] PCP - General Internal Medicine 12/01/22 12/01/22 Johana Lizarraga MD [address] [place] [address] [place] [address] PCP - General Internal Medicine 12/02/22 12/29/22 [facility], [address] [place] [address] PCP - General Internal Medicine 12/30/22 12/30/22 Phil Rodriguez MD [address] [place] [address] PCP - General Internal Medicine 01/04/23 01/10/23 [facility], [address] [place] [address] PCP - General Internal Medicine 01/11/23 02/01/24 Lizbeth Schilling APRN [address] [place] [address] PCP - General Internal Medicine 02/02/24 02/11/24 [facility], [address] [place] [address] PCP - General Internal Medicine 02/12/24 Triston Bailey MD [address] [place] [address] [place] [address] Director Of Online Education Cardiovascular Disease 06/10/20 Remedios Warren PA [address] [place] [address] [place] [address] Cardiology 12/08/21 Umang Corado NP [address] [place] [address] [place] [address] Specialist Cardiology 02/23/22 Chanda Soria NP [address] [place] [address] [place] [address] Cardiology 08/11/22 Loreto Albert MD [address] [place] [address] Internal Medicine 04/13/23 documented as of this encounter
--- OUTSIDE RECORDS SUMMARY | 2024-05-21 15:46 | XMS_ITS | Encounter Summary ---
Author Organization [facility] Address [address] [place] [address] Care Team Providers Care End Lathe Operator Name Role Phone Susie Starr DO Primary Care Provider [phone] Reason for Visit * Reason Onset Date Comments Cough 04/01/2024 Encounter Details Date Type Department Care Team (Late st Contact Info) Description 04/01/2024 Telephone Internal Medicine - [facility] [address] [place] [address] Susie Starr DO [address] [place] [address] Cough Social History Tobacco Use Types Packs/Day Years [...] on file documented as of this encounter Progress Notes * Samantha Ariza LPN - 04/01/2024 10:00 AM EST Spoke with pt she states she is coughing and her voiced sounded raspy. Pt offered appt at [facility] todaybut pt states she didn't sleep last night d/t cough and doesn't want to go out. I told her she needs to have her lungs checked out for pneumonia. Pt states she doesn't want to go out so don't make appt. Advised pt if she feels worse call us back she agreed * Sarah Crabtree - 04/01/2024 9:18 AM EST Patient call requires triage: Symptoms patient is presenting: Pt c/o cough, pt states she has tried everything from pharmacy and nothing is working, pt cannot sleep with cough How long has patient had these symptoms?: 2 days For ALL patients calling to schedule any appointment (routine, sick visit, follow up, consult, etc.) in the outpatient setting please ask the following questions: Do you have fever of higher than 101, sore throat with difficulty swallowing or severe shortness ofbreath? no If YES to any of these above symptoms, send a message to triage and do not book. Red dot. If no, an audio or video visit should be booked. Have you had close contact with someone with Coronavirus in the last 14 days? no Have you traveled abroad? no Have you traveled recently to another state outside of [place], [place], [place], [place], [place], [place], [place]? no o If yes, did you quarantine for 14 days or have a negative covid test? no If yes to any of the above, patient is not to be scheduled in office until after 14 day quarantine or negative covid test. If pain or injury related was it due to an accident at work or from a motor vehicle accident? If yes, date of accident/Injury: No If yes, gather 3rd constitution party insurance information Third Libertarian Information: not applicable PCP: Susie Starr DO Payor: [facility] MEDICARE / Plan: [facility] ONE CARE / Product Type: *No Product type* / documented in this encounter Plan of Treatment Upcoming Encounters Date Type Department Care Team (Late st Contact Info) Description 05/23/2024 1:00 PM EST Office Visit Endocrinology - [address] [address] Mervat Cruz MD [address] [place] [address] 07/25/2024 1:00 PM EDT Office Visit Internal Medicine - [facility] [address] [place] [address] Susie Starr DO [address] [place] [address] 09/12/2024 11:30 AM EDT Office Visit Pulmonolgy - [place] 175 [facility] [address] [place] [address] Denia Mcdonnell MD [address] [address] documented as of this encounter Visit Diagnoses Not on filedocumented in this encounter Care Teams End Lathe Operator Relationship Specialty Start Date End Date Susie Starr DO [address] [place] [address] PCP - General 01/11/23 documented as of this encounter
--- OUTSIDE RECORDS SUMMARY | 2024-05-21 15:46 | XMS_ITS | Encounter Summary ---
Author Organization [facility] Address [id number] [place] [address] Care Team Providers Care Fire Medic Name Role Phone Susie Starr DO Primary Care Provider [phone] Reason for Referral * Imaging (Routine) - Pending Review Specialty Diagnoses / Procedures Referred By Contac t Referred To Contact Radiology Diagnoses Other migraine without status migrainosus, not intractable Procedures CT Head wo Contrast Lizbeth Schilling NP [address] [place] [address] [place] [address] Scan [address] [place], [place] Referral ID Status Reason Start Date Expiration Date V isits Requested Visits Authorized [id number] Pending Review 04/02/2024 07/31/2024 1 1 Reason for Visit * Imaging (Routine) - Pending Review Specialty Diagnoses / Procedures Referred By Contac t Referred To Contact Radiology Diagnoses Other migraine without status migrainosus, not intractable Procedures CT Head wo Contrast Lizbeth Schilling NP [address] [place] [address] [place] [address] Scan [address] [place], [place] Referral ID Status Reason Start Date Expiration Date V isits Requested Visits Authorized [id number] Pending Review 04/02/2024 07/31/2024 1 1 Encounter Details Date Type Department Care Team (Latest Contact Info) Description 04/26/2024 2:03 PM EST - 04/26/2024 11:59 PM EST Hospital Encounter CT Scan - [place] [address] [place] [address] Other migraine without status migrainosus, not intractable Discharge Disposition: Home or Self Care Social History Tobacco Use Types Packs/Day Years [...] on file documented as of this encounter Medications at Time of Discharge Medication Sig Dispensed Refills Start Date End Date albuterol HFA (Ventolin HFA) 90 mcg/actuation inhalerIndications:Mi ld intermittent asthma without complication Inhale 2 puffs by mouth every 6 (six) hours if needed for wheezing. 1 each 03/26/2024 03/26/2025 alirocumab (Praluent Pen) 75 mg/mL pen injector INJECT 75 MG INTO THE SKIN EVERY 14 DAYS 01/04/2024 amLODIPine (NORVASC) 2.5 mg tablet TAKE 1 TABLET BY MOUTH DAILY 90 tablet 1 03/15/2024 blood-glucose meter kit To use to test blood sugar 08/24/2020 denosumab (Prolia) 60 mg/mL syringe syringe INJECT 1 SYRINGE (60MG) UNDER THE SKIN EVERY 6 MONTHS 08/08/2023 ezetimibe (ZETIA) 10 mg tablet TAKE 1 TABLET BY MOUTH DAILY 90 tablet 3 03/29/2024 fluticasone HFA (FLOVENT HFA) 220 mcg/actuation inhaler Inhale 1 Puff into the lungs 2 times daily. 03/28/2023 fluticasone-salmetero l (Wixela Inhub) 250-50 mcg/dose diskus inhalerIndications:Mo derate persistent asthma, unspecified whether complicated Inhale 1 puff by mouth 2 (two) times a day. Rinse mouth with water after use to reduce aftertaste and incidence of candidiasis. Do not swallow. 1 each 12 03/12/2024 03/12/2025 FREESTYLE LANCETS MISC USE TO TEST BLOOD SUGAR TWICE DAILY 07/10/2018 hydroCHLOROthiazide 12.5 mg tablet TAKE 1 TABLET BY MOUTH DAILY 90 tablet 1 04/10/2024 incontinence pad, liner, disp pad Disposable Incontinence liners Use up to 8 times daily for Incontinence Indefinite Use Dx: R32 ,E11.49, E11.29 , N18.30, G62.9, R26.81 08/04/2023 ipratropium-albuteroL (DUONEB) 0.5-2.5 mg/3 mL nebulizer solution USE 3 ML VIA NEBULIZER FOUR TIMES DAILY NEEDED FOR COUGH OR WHEEZING OR SHORTNESS OF BREATH 04/12/2023 isosorbide mononitrate (IMDUR) 30 mg 24 hr tablet TAKE 2 TABLETS BY MOUTH DAILY 12/08/2023 meclizine (ANTIVERT) 12.5 mg tabletIndications:Diz ziness Take 1 tablet (12.5 mg total) by mouth 3 (three) times a day if needed for dizziness. 30 tablet 03/26/2024 06/24/2024 metFORMIN XR (GLUCOPHAGE-XR) 500 mg 24 hr tablet TAKE 1 TABLET BY MOUTH TWICE DAILY 180 tablet 1 03/15/2024 aspirin 81 mg chewable tablet Chew 1 tablet (81 mg total) 1 (one) time each day. 02/12/2024 05/15/2024 blood sugar diagnostic (FreeStyle Lite Strips) test strip USE DIRECTED TO TEST BLOOD SUGAR TWICE DAILY BEFORE A MEAL 05/29/2023 05/14/2024 calcium carbonate 1,500 mg (600 mg elemental calcium) tablet Take 600 mg by mouth. 11/22/20232024 cetirizine (ZyrTEC) 10 mg tablet take 1 tablet by mouth daily as needed for allergies 02/15/2024 05/15/2024 lisinopriL (PRINIVIL,ZESTRIL) 10 mg tablet TAKE 1 TABLET BY MOUTH DAILY 90 tablet 1 04/10/2024 04/29/2024 LORazepam (ATIVAN) 2 mg tablet Take 1 tablet (2 mg total) by mouth 1 (one) time each day if needed for anxiety for up to 28 days. Max Daily Amount: 2 mg 28 tablet 04/03/2024 05/02/2024 documented as of this encounter Discharge Disposition Disposition Code Departure Means Destination Home or Self Care documented in this encounter Plan of Treatment Upcoming Encounters Date Type Department Care Team (Late st Contact Info) Description 05/23/2024 1:00 PM EST Office Visit Endocrinology - [place] [address] [place] [phone] Mervat Cruz MD [address] [place] [address] 07/25/2024 1:00 PM EDT Office Visit Internal Medicine - [facility] [address] [place] [address] Susie Strar DO [address] [place] [address] 09/12/2024 11:30 AM EDT Office Visit Pulmonolgy - [place] [address] [address] Denia Mcdonnell MD [address] [address] documented as of this encounter Procedures Procedure Name Priority Date/Time Associated Diagnosis Comments CT HEAD WO CONTRAST Routine 04/26/2024 2 :27 PM EST Other migraine without status migrainosus, not intractable documented in this encounter Results * CT Head wo Contrast (04/26/2024 [...] Signed Date: 04/26/2024 14:41 ET Workstation ID: [id number] Transcribed By: Self Edit Transcribed Date: 04/26/2024 [...] Signed Date: 04/26/2024 14:41 ET Workstation ID: [id number] Transcribed By: Self Edit Transcribed Date: 04/26/2024 14:36 ET Lizbeth Schilling TRUCK DRIVER SUPERVISOR IMG CT PROCEDURES documented in this encounter Visit Diagnoses Diagnosis Other migraine without status migrainosus, not intractable documented in this encounter Care Teams Fire Medic Relationship Specialty Start Date End Date Susie Starr DO [address] [place] [address] PCP - General 01/11/23 documented as of this encounter
--- OUTSIDE RECORDS SUMMARY | 2024-05-21 15:46 | XMS_ITS | Encounter Summary ---
Author Organization [facility] Address [address] [place] [address] Care Team Providers Care Rn Liaison Name Role Phone Phil Rodriguez MD Primary Care Provider Unavail able Ashley Rosado APRN Primary Care Provider Unav ailable Triston Bailey MD Unavailable [phone] Remedios Warren PA Unavailable Unavailable Umang Corado NP Unavailable [phone] Johana Lizarraga MD Primary Care Provider Chanda Soria EQUIPMENT OPERAT0R Unavailable Susie Starr DO Primary Care Provider Johana Lizarraga MD Primary Care Provider Susie Starr DO Primary Care Provider Phil Rodriguez MD Primary Care Provider Unavail able Susie Starr DO Primary Care Provider [phone] Loreto Albert MD Unavailable [phone] Lizbeth Schilling APRN Primary Care Provider [phone] Susie Starr DO Primary Care Provider [phone] Encounter Details Date Type Department Care Team Description 11/07/2016 Director Of Payroll Report Medical Records [address] [place] [address] Triston Allred MD, MD Social History Tobacco [...] [facility] am[facility]? More than 4 times per year [...] on filedocumented in this encounter Care Teams Rn Liaison Relationship Specialty Start Date End Date Phil Rodriguez MD PCP - General Internal Medicine 12/15/14 09/19/19 Ashley Rosado APRN PCP - General Internal Medicine 09/20/19 06/27/22 Johana Lizarraga MD [address] [place] [address] [place] [address] PCP - General Internal Medicine 06/28/22 11/30/22 Susie Starr, DO [address] [place] [address] PCP - General Internal Medicine 12/01/22 12/01/22 Johana Lizarraga MD [address] [place] [address] [place] [address] PCP - General Internal Medicine 12/02/22 12/29/22 [facility] [address] [place] [address] PCP - General Internal Medicine 12/30/22 12/30/22 Phil Rodriguez MD PCP - General Internal Medicine 01/04/23 01/10/[address] [address] PCP - General Internal Medicine 01/11/23 02/01/24 Lizbeth Schilling, PIT OPERATOR [address] [place] [address] PCP - General Internal Medicine 02/02/24 02/11/[address] [address] PCP - General Internal Medicine 02/12/24 Triston Bailey MD [address] [place] [address] [place] [address] Feed Inspection Supervisor Cardiovascular Disease 06/10/20 Remedios Warren PA [address] [place] [address] [place] [address] Cardiology 12/08/21 Umang Corado NP [address] [place] [address] [place] [address] Specialist Cardiology 02/23/22 Chanda Soria NP [address] [place] [address] [place] [address] Cardiology 08/11/22 Loreto Albert MD [address] [place] [address] Internal Medicine 04/13/23 documented as of this encounter
--- OUTSIDE RECORDS SUMMARY | 2024-05-21 15:46 | XMS_ITS | Encounter Summary ---
Author Organization [facility] Address [address] [place] [address] Care Team Providers Care Director Of Property Management Name Role Phone Phil Rodriguez MD Primary Care Provider Unavail able Ashley Rosado APRN Primary Care Provider Unav ailable Triston Bailey MD Unavailable [phone] Remedios Warren PA Unavailable Unavailable Umang Corado CONTACT AND SERVICE CLERKS SUPERVISOR Unavailable [phone] Johana Lizarraga MD Primary Care Provider Chanda Soria CONTACT AND SERVICE CLERKS SUPERVISOR Unavailable Susie Starr DO Primary Care Provider [phone] Johana Lizarraga MD Primary Care Provider Susie Starr DO Primary Care Provider [phone] Phil Rodriguez MD Primary Care Provider Unavail able Susie Starr DO Primary Care Provider Loreto Albert MD Unavailable [phone] Lizbeth Schilling APRN Primary Care Provider [phone] Susie Starr DO Primary Care Provider [phone] Encounter Details Date Type Department Care Team Description 11/25/2016 PNO Controlled Substance Contract Medical Records [address] [place] [id number] Abstract, Provider Social History Tobacco Use Types [...] week 04/13/2023 How often do you attend [facility] or orthodox services? More than 4 times per year 04/13/2023 Do you belong to any clubs o r organizations such as cheondoism groups, unions, fraternal or athletic groups, or [...] filedocumented in this encounter Care Teams Director Of Property Management Relationship Specialty Start Date End Date Phil Rodriguez MD PCP - General Internal Medicine 12/15/14 09/19/19 Ashley Rosado APRN PCP - General Internal Medicine 09/20/19 06/27/22 Johana Lizarraga MD [address] [place] [address] [place] [address] PCP - General Internal Medicine 06/28/22 11/30/22 Susie Starr, DO [address] [place] [address] PCP - General Internal Medicine 12/01/22 12/01/22 Johana Lizarraga MD [address] [place] [address] [place] [address] PCP - General Internal Medicine 12/02/22 12/29/[address] [address] PCP - General Internal Medicine 12/30/22 12/30/22 Phil Rodriguez MD PCP - General Internal Medicine 01/04/23 01/10/[address] [address] PCP - General Internal Medicine 01/11/23 02/01/24 Lizbteh Schilling, CAR ELECTRONICS INSTALLER [address] [place] [address] PCP - General Internal Medicine 02/02/24 02/11/[address] [address] PCP - General Internal Medicine 02/12/24 Triston Bailey MD [address] [place] [address] [place] [address] Software Licensing Specialist Cardiovascular Disease 06/10/20 Remedios Warren PA [address] [place] [address] [place] [address] Cardiology 12/08/21 Umang Corado NP [address] [place] [address] [place] [address] Specialist Cardiology 02/23/22 Chanda Soria NP [address] [place] [address] [place] [address] Cardiology 08/11/22 Loreto Albert MD [address] [place] [address] Internal Medicine 04/13/23 documented as of this encounter
--- OUTSIDE RECORDS SUMMARY | 2024-05-21 15:46 | XMS_ITS | Encounter Summary ---
Author Organization [facility] Address [address] [place] [address] Care Team Providers Care Supervisor Fabrication And Assembly Name Role Phone Triston Bailey MD Unavailable Remedios Warren Unavailable Unavailable Uamng Corado TRUSS DRIVER HELPER Unavailable [phone] Chanda Soria TRUSS DRIVER HELPER Unavailable [phone] Johana Lizarraga MD Primary Care Provider [phone] Susie Starr DO Primary Care Provider Phil Rodriguez MD Primary Care Provider Unavail able Susie Starr DO Primary Care Provider [phone] Loreto Albert MD Unavailable [phone] Lizbeth Schilling APRN Primary Care Provider Susie Starr DO Primary Care Provider Encounter Details Date Type Department Care Team Description 12/08/2022 Telephone Internal Medicine - [facility] [address] [facility], [address] [place], [place] [id number] Johana Lizarraga MD [address] [place] [phone] Social History Tobacco Use Types Packs/Day [...] week 04/13/2023 How often do you attend [facility] or zoroastrian services? More than 4 times per year [...] suspected to have Coronavirus/COVID-19? No / Unsure 11/25/2022 3:41 PM EDT documented as of this encounter Miscellaneous Notes * Telephone Encounter - Mallory Coulter M.A. - 12/09/2022 4:17 PM EDT Spokewith patient and informed. * Telephone Encounter - Johana Lizarraga MD - 12/08/2022 10:40 AM EDT Mammogram done on 11/22/2022 shows some asymmetry. But no evidence of malignancy seen. Please repeat the mammogram 1 year later. documented in this encounter Plan of Treatment Not on file documented as of this encounter Visit Diagnoses Not on filedocumented in this encounter Care Teams Supervisor Fabrication And Assembly Relationship Specialty Start Date End Date Johana Lizarraga MD [address] [place] [address] [place] [address] PCP - General Internal Medicine 12/02/22 12/29/22 [facility], [address] [place] [address] PCP - General Internal Medicine 12/30/22 12/30/22 Phil Rodriguez MD [address] [place] [address] PCP - General Internal Medicine 01/04/23 01/10/23 [facility], [address] [place] [address] PCP - General Internal Medicine 01/11/23 02/01/24 Lizbeth Schilling APRN [address] [place] [address] PCP - General Internal Medicine 02/02/24 02/11/24 [facility], [address] [place] [address] PCP - General Internal Medicine 02/12/24 Triston Bailey MD [address] [place] [address] [place] [address] Logistics Intern Cardiovascular Disease 06/10/20 Remedios Warren PA [address] [facility] [place] [address] Cardiology 12/08/21 Umang Corado NP [address] [place] [address] Dr Hui [address] [place] [address] Specialist Cardiology 02/23/22 Chanda Soria NP [address] [place] [address] [address] Cardiology 08/11/22 Loreto Albert MD [address] [place] [address] Internal Medicine 04/13/23 documented as of this encounter
--- OUTSIDE RECORDS SUMMARY | 2024-05-21 15:46 | XMS_ITS | Encounter Summary ---
Author Organization [facility] Address [address] [place] [address] Care Team Providers Care Criminal Profiler Name Role Phone Phil Rodriguez MD Primary Care Provider Unavail able Tony Rodriguez MD Primary Care Provider Unavail able Phil Rodriguez MD Primary Care Provider Unavail able Ashley Rosado APRN Primary Care Provider Unav ailable Triston Bailey MD Unavailable Remedios Warren Unavailable Unavailable Umang Corado REMOTE SENSING ENGINEER Unavailable Johana Lizarraga MD Primary Care Provider Chanda Soria REMOTE SENSING ENGINEER Unavailable Susie Starr DO Primary Care Provider [phone] Johana Lizarraga MD Primary Care Provider Susie Starr DO Primary Care Provider [phone] Phil Rodriguez MD Primary Care Provider Unavail able Susie Starr DO Primary Care Provider [phone] Loreto Albert MD Unavailable [phone] Lizbeth Schilling APRN Primary Care Provider [phone] Susie Starr DO Primary Care Provider [phone] Encounter Details Date Type Department Care Team Description 06/01/2011 Eye Inspector Golf Ball Report Medical Records [address] [place] [address] Social History Tobacco Use Types Packs/Day Years [...] How often do you attend [facility] or presybeterian services? More than 4 times per year 04/13/2023 Do you belong to any clubs o r organizations such as yazdanism groups, unions, fraternal or athletic groups, or [...] on filedocumented in this encounter Care Teams Criminal Profiler Relationship Specialty Start Date End Date Phil Rodriguez MD PCP - General 03/07/05 12/04/14 Tony Rodriguez MD PCP - General Internal Medicine 12/05/14 12/14/14 Phil Rodriguez MD PCP - General Internal Medicine 12/15/14 09/19/19 Ashley Rosado APRN PCP - General Internal Medicine 09/20/19 06/27/22 Johana Lizarraga MD [address] [place] [place] [address] PCP - General Internal Medicine 06/28/22 11/30/22 [facility] [address] [place] [address] PCP - General Internal Medicine 12/01/22 12/01/22 Johana Lizarraga MD [address] [place] [address] PCP - General Internal Medicine 12/02/22 12/29/22 [facility] [address] [place] [address] PCP - General Internal Medicine 12/30/22 12/30/22 Phil Rodriguez MD PCP - General Internal Medicine 01/04/23 01/10/23 [facility], [address] [place] [address] PCP - General Internal Medicine 01/11/23 02/01/24 Lizbeth Schilling, MELISSA [address] [place] [address] PCP - General Internal Medicine 02/02/24 02/11/24 [facility], [address] [place] [address] PCP - General Internal Medicine 02/12/24 Triston Bailey MD [address] [place] [address] [place] [address] Program Aide Cardiovascular Disease 06/10/20 Remedios Warren PA [address] [place] [address] Cardiology 12/08/21 Umang Corado NP [address] [place] [address] [place] [address] Specialist Cardiology 02/23/22 Chanda Soria NP [address] [place] [address] [address] Cardiology 08/11/22 Loreto Albert MD [address] [place] [address] Internal Medicine 04/13/23 documented as of this encounter
--- OUTSIDE RECORDS SUMMARY | 2024-05-21 15:46 | XMS_ITS | Encounter Summary ---
Author Organization [facility] Address [address] [place] [address] Care Team Providers Care Windmill Technician Name Role Phone Phil Rodriguez MD Primary Care Provider Unavail able Ashley Rosado APRN Primary Care Provider Unav ailable Triston Bailey MD Unavailable [phone] Remedios Warren PA Unavailable Unavailable Umang Corado NP Unavailable [phone] Johana Lizarraga MD Primary Care Provider Chanda Soria GEOPHYSICAL COMPUTER Unavailable Susie Starr DO Primary Care Provider [phone] Johana Lizarraga MD Primary Care Provider Susie Starr DO Primary Care Provider Phil Rodriguez MD Primary Care Provider Unavail able Susie Starr DO Primary Care Provider Loreto Albert MD Unavailable [phone] Lizbeth Schilling APRN Primary Care Provider [phone] Susie Starr DO Primary Care Provider [phone] Encounter Details Date Type Department Care Team Description 01/16/2018 Orders Only Adult Medicine [address] [address] Phil Rodriguez MD Social History Tobacco Use [...] often do you attend [facility] or gnosticist services? More than 4 times per year [...] place to sleep or slept in a alf (including now)? No 04/13/2023 Sex Assigned at Date Recorded Not on file Job Start Date Occupation Industry Not on file Not on file Not on file documented as of this encounter Plan of Treatment Not on file documented as of this encounter Visit Diagnoses Not on filedocumented in this encounter Care Teams Windmill Technician Relationship Specialty Start Date End Date Phil Rodriguez MD PCP - General Internal Medicine 12/15/14 09/19/19 Ashley Rosado APRN PCP - General Internal Medicine 09/20/19 06/27/22 Johana Lizarraga MD [address] [place] [address] [place] [address] PCP - General Internal Medicine 06/28/22 11/30/22 Jaloudi, Susie, DO [address] [place] [address] PCP - General Internal Medicine 12/01/22 12/01/22 Johana Lizarraga MD [address] [place] [address] [place] [address] PCP - General Internal Medicine 12/02/22 12/29/22 [facility] [address] [place] [address] PCP - General Internal Medicine 12/30/22 12/30/22 Phil Rodriguez MD PCP - General Internal Medicine 01/04/23 01/10/23 [facility] [address] [place] [address] PCP - General Internal Medicine 01/11/23 02/01/24 Lizbeth Schilling, BREAD DUMPER [address] [place] [address] PCP - General Internal Medicine 02/02/24 02/11/24 [facility] [address] [place] [address] PCP - General Internal Medicine 02/12/24 Triston Bailey MD [address] [place] [address] [place] [address] Qa Analyst Cardiovascular Disease 06/10/20 Remedios Warren PA [address] [place] [address] [place] [address] Cardiology 12/08/21 Umang Corado NP [address] [place] [address] [place] [address] Specialist Cardiology 02/23/22 Chanda Soria NP [address] [place] [address] Cardiology 08/11/22 Loreto Albert MD [address] [place] [address] Internal Medicine 04/13/23 documented as of this encounter
--- OUTSIDE RECORDS SUMMARY | 2024-05-21 15:46 | XMS_ITS | Encounter Summary ---
Author Organization [facility] Address [address] [place] [address] Care Team Providers Care Insurance Coder Name Role Phone Ashley Rosado APRN Primary Care Provider Unav Triston Jaffe MD Unavailable Remedios Warren Unavailable Unavailable Umang Corado PATENT DRAFTER Unavailable Johana Lizarraga MD Primary Care Provider Chanda Soria NP Unavailable Susie Starr DO Primary Care Provider Johana Lizarraga MD Primary Care Provider Susie Starr DO Primary Care Provider Phil Rodriguez MD Primary Care Provider Unavail able Susie Starr DO Primary Care Provider Loreto Albert MD Unavailable [phone] Lizbeth Schilling APRN Primary Care Provider Susie Starr DO Primary Care Provider Encounter Details Date Type Department Care Team Description 06/17/2022 Orders Only Medical Records [address] [place] [address] Mervat Cruz MD [address] [place] [address] Social History Tobacco Use Types Packs/Day Years [...] week 04/13/2023 How often do you attend [facility] or catholic services? More than 4 times per year 04/13/2023 Do you belong to any clubs o r organizations such as holiness groups, unions, fraternal or athletic groups, or [...] suspected to have Coronavirus/COVID-19? No / Unsure 06/16/2022 11:01 AM EST documented as of this encounter Plan of Treatment Not on file documented as of this encounter Procedures Procedure Name Priority Date/Time Associated Diagnosis Comments OUTSIDE LAB Routine 06/09/2022 documented in this encounter Results * OUTSIDE LAB (06/09/2022) Mervat Cruz MD LAB documented in this encounter Visit Diagnoses Not on filedocumented in this encounter Care Teams Insurance Coder Relationship Specialty Start Date End Date Ashley Rosado APRN PCP - General Internal Medicine 09/20/19 06/27/22 Johana Lizarraga MD [address] [place] [address] [place] [address] PCP - General Internal Medicine 06/28/22 11/30/22 [facility], [address] [place] [address] PCP - General Internal Medicine 12/01/22 12/01/22 Johana Lizarraga MD [address] [place] [address] [place] [address] PCP - General Internal Medicine 12/02/22 12/29/22 [facility], [address] [place] [address] PCP - General Internal Medicine 12/30/22 12/30/22 Phil Rodriguez MD [address] [place] [address] PCP - General Internal Medicine 01/04/23 01/10/23 [facility], [address] [place] [address] PCP - General Internal Medicine 01/11/23 02/01/24 Lizbeth Schilling APRN [address] [place] [address] PCP - General Internal Medicine 02/02/24 02/11/24 [facility], [address] [place] [address] PCP - General Internal Medicine 02/12/24 Triston Bailey MD [address] [place] [address] [place] [address] Wrecker Driver Cardiovascular Disease 06/10/20 Remedios Warren PA [address] [place] [address] Dr Hui [address] [place] [address] Cardiology 12/08/21 Umang Corado NP [address] [place] [address] Dr Hui [address] [place] [address] Specialist Cardiology 02/23/22 Chanda Soria NP [address] [place] [address] Breann Hui [address] [place] [address] Cardiology 08/11/22 Loreto Albert MD [address] [place] [address] Internal Medicine 04/13/23 documented as of this encounter
--- OUTSIDE RECORDS SUMMARY | 2024-05-21 15:46 | XMS_ITS | Encounter Summary ---
Author Organization [facility] Address [address] [place] [address] Care Team Providers Care Combiner Name Role Phone Triston Bailey MD Unavailable Remedios Warren Unavailable Unavailable Umang Corado FOOD CART ATTENDANT Unavailable Johana Lizarraga MD Primary Care Provider Chanda Soria FOOD CART ATTENDANT Unavailable [phone] Susie Starr DO Primary Care Provider Johana Lizarraga MD Primary Care Provider Susie Starr DO Primary Care Provider Phil Rodriguez MD Primary Care Provider Unavail able Susie Starr DO Primary Care Provider Loreto Albert MD Unavailable [phone] Lizbeth Schilling APRN Primary Care Provider Susie Starr DO Primary Care Provider [phone] Encounter Details Date Type Department Care Team Description 07/05/2022 Telephone Internal Medicine - [facility] [address] [facility], [address] [place] [address] Johana Lizarraga MD [address] [place] [address] Social History Tobacco Use Types Packs/Day [...] week 04/13/2023 How often do you attend [facility] or judaism services? More than 4 times per year 04/13/2023 Do you belong to any clubs o r organizations such as taoism groups, unions, fraternal or athletic groups, or [...] was confirmed or suspected to have Coronavirus/COVID-19? Unable to assess 06/23/2022 2:10 PM EST documented as of this encounter Miscellaneous Notes * Telephone Encounter - Hosea Mayes - 07/05/2022 3:10 PM EDT Pt has been informed. * Telephone Encounter - Hosea Mayes - 07/05/2022 3:10 PM EDT ----- Message from Johana Lizarraga MD sent at 06/29/2022 4:58 PM EST ----- Urine drug test came back negative. documented in this encounter Plan of Treatment Not on file documented as of this encounter Visit Diagnoses Not on filedocumented in this encounter Care Teams Combiner Relationship Specialty Start Date End Date Johana Lizarraga MD [address] [place] [address] [place] [address] PCP - General Internal Medicine 06/28/22 11/30/22 Susie Starr, [address] [place] [address] PCP - General Internal Medicine 12/01/22 12/01/22 Johana Lizarraga MD [address] [place] [address] [place] [address] PCP - General Internal Medicine 12/02/22 12/29/22 Susie Starr, [address] [place] [address] PCP - General Internal Medicine 12/30/22 12/30/22 Phil Rodriguez MD [address] [place] [address] PCP - General Internal Medicine 01/04/23 01/10/23 Susie Starr, [address] [place] [address] PCP - General Internal Medicine 01/11/23 02/01/24 Lizbeth Schilling APRN [address] [place] [address] PCP - General Internal Medicine 02/02/24 02/11/24 Susie Starr, DO [address] [facility] [place] [address] PCP - General Internal Medicine 02/12/24 Triston Bailey MD [address] [place] [address] [place] [address] Training Program Developer Cardiovascular Disease 06/10/20 Remedios Warren, PA [address] [place] [address] [place] [address] Cardiology 12/08/21 Umang Corado NP [address] [place] [address] [facility] [place] [address] Specialist Cardiology 02/23/22 Chanda Soria, KIRAN [address] [place] [address] [address] Cardiology 08/11/22 Loreto Albert MD [address] [place] [address] Internal Medicine 04/13/23 documented as of this encounter
--- OUTSIDE RECORDS SUMMARY | 2024-05-21 15:46 | XMS_ITS | Encounter Summary ---
Author Organization [facility] Address [address] [place] [address] Care Team Providers Care Pie Topper Name Role Phone Triston Bailey MD Unavailable Remedios Warren Unavailable Unavailable Umang Corado ENGINEERING DESIGNER Unavailable [phone] Johana Lizarraga MD Primary Care Provider Chanda Soria NP Unavailable [phone] Susie Starr DO Primary Care Provider Johana Lizarraga MD Primary Care Provider [phone] Susie Starr DO Primary Care Provider Phil Rodriguez MD Primary Care Provider Unavail able Susie Starr DO Primary Care Provider Loreto Albert MD Unavailable [phone] Lizbeth Schilling APRN Primary Care Provider [phone] Susie Starr DO Primary Care Provider [phone] Encounter Details Date Type Department Care Team Description 08/15/2022 SCAN Medical Records [address] [place] [id number] Abstract, Provider Social History Tobacco Use Types [...] 04/13/2023 How often do you attend [facility] or hoahaoism services? More than 4 times [...] suspected to have Coronavirus/COVID-19? No / Unsure 08/15/2022 12:26 PM EDT documented as of this encounter Plan of Treatment Not on file documented as of this encounter Procedures Procedure Name Priority Date/Time Associated Diagnosis Comments OUTSIDE LAB Routine 08/15/2022 documented in this encounter Results * OUTSIDE LAB (08/15/2022) Provider Abstract LAB documented in this encounter Visit Diagnoses Not on filedocumented in this encounter Care Teams Pie Topper Relationship Specialty Start Date End Date Johana Lizarraga MD [address] [place] [address] Dr Ez [address] [place] [address] PCP - General Internal Medicine 06/28/22 11/30/22 [facility], [address] [place] [address] PCP - General Internal Medicine 12/01/22 12/01/22 Johana Lizarraga MD [address] [place] [address] PCP - General Internal Medicine 12/02/22 12/29/22 [facility], [address] [place] [address] PCP - General Internal Medicine 12/30/22 12/30/22 Phil Rodriguez MD [address] [place] [address] PCP - General Internal Medicine 01/04/23 01/10/23 [facility], [address] [place] [address] PCP - General Internal Medicine 01/11/23 02/01/24 Lizbeth Schilling APRN [address] [place] [address] PCP - General Internal Medicine 02/02/24 02/11/24 [facility], [address] [place] [address] PCP - General Internal Medicine 02/12/24 Triston Bailey MD [address] [place] [address] [place] [address] Technical Operator Cardiovascular Disease 06/10/20 Remedios Warren PA [place] [address] Cardiology 12/08/21 Umang Corado NP [address] [place] [address] [place] [address] Specialist Cardiology 02/23/22 Chanda Soria NP [address] [place] [address] Cardiology 08/11/22 Loreto Albert MD [address] [place] [address] Internal Medicine 04/13/23 documented as of this encounter
--- OUTSIDE RECORDS SUMMARY | 2024-05-21 15:46 | XMS_ITS | Encounter Summary ---
Author Organization [facility] Address [address] [place] [address] Care Team Providers Care Fish Filleter Name Role Phone Triston Bailey MD Unavailable Remedios Warren Unavailable Unavailable Umang Corado COLLET MAKER Unavailable Johana Lizarraga MD Primary Care Provider Chanda Soria COLLET MAKER Unavailable Susie Starr DO Primary Care Provider Johana Lizarraga MD Primary Care Provider Susie Starr DO Primary Care Provider Phil Rodriguez MD Primary Care Provider Unavail able Susie Starr DO Primary Care Provider Loreto Albert MD Unavailable [phone] Lizbeth Schilling APRN Primary Care Provider Susie Starr DO Primary Care Provider Encounter Details Date Type Department Care Team Description 09/23/2022 Orders Only Radiology - [address] [address] Mervat Cruz MD [address] [place] [address] Social History Tobacco Use Types Packs/Day Years [...] do you attend [facility] or [facility] services? More than 4 times [...] suspected to have Coronavirus/COVID-19? No / Unsure 08/31/2022 1:01 PM EDT documented as of this encounter Plan of Treatment Not on file documented as of this encounter Visit Diagnoses Not on filedocumented in this encounter Care Teams Fish Filleter Relationship Specialty Start Date End Date Johana Lizarraga MD [address] [place] [address] [place] [address] PCP - General Internal Medicine 06/28/22 11/30/22 Susie Starr, DO [address] [place] [address] PCP - General Internal Medicine 12/01/22 12/01/22 Johana Lizarraga MD [address] [place] [address] [place] [address] PCP - General Internal Medicine 12/02/22 12/29/22 [facility], [address] [place] [address] PCP - General Internal Medicine 12/30/22 12/30/22 Phil Rodriguez MD [address] [place] [address] PCP - General Internal Medicine 01/04/23 01/10/23 [facility], [address] [place] [address] PCP - General Internal Medicine 01/11/23 02/01/24 Lizbeth Schilling, HOSE OPERATOR [address] [place] [address] PCP - General Internal Medicine 02/02/24 02/11/24 [facility], [address] [place] [address] PCP - General Internal Medicine 02/12/24 Triston Bailey MD [address] [place] [address] [place] [address] Motor Vehicle Lecturer Cardiovascular Disease 06/10/20 Remedios Warren PA [address] [facility] [place] [address] Cardiology 12/08/21 Umang Corado NP [address] [place] [address] Specialist Cardiology 02/23/22 Chanda Soria NP [address] [place] [address] [address] Cardiology 08/11/22 Loreto Albert MD [address] [place] [address] Internal Medicine 04/13/23 documented as of this encounter
--- OUTSIDE RECORDS SUMMARY | 2024-05-21 15:46 | XMS_ITS | Encounter Summary ---
Author Organization [facility] Address [address] [place] [address] Care Team Providers Care Senior Clinical Research Scientist Name Role Phone Triston Bailey MD Unavailable [phone] Remedios aWrren Unavailable Unavailable Umang Corado SALES ENGAGEMENT EXECUTIVE Unavailable [phone] Chanda Soria NP Unavailable [phone] Susie Starr DO Primary Care Provider Loreto Albert MD Unavailable [phone] Lizbeth Schilling APRN Primary Care Provider Susie Starr DO Primary Care Provider Encounter Details Date Type Department Care Team Description 01/12/2023 Orders Only Internal Medicine - [place] [address] [facility], [address] [place] [address] Johana Lizarraga MD [address] [place] [phone] DM (diabetes mellitus), 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 More than 4 times per year 04/13/2023 Do you belong to any clubs o r organizations such as rastafari groups, unions, fraternal or athletic groups, or [...] as of this encounter Results * (ABNORMAL) CHG BASIC METABOLIC PANEL CALCIUM TOTAL (02/13/2023 1:21 PM EDT) GLUCOSE 119(H) 70 - 100 mg/dL 02/13/2023 4:54 PM EDT [facility] Comment:Reference range appl icable to fasting specimens only Blood Urea Nitrogen 23 5 - 25 mg/dL 02/13/2023 4:54 PM EDT [facility] CREAT 1.43(H) 0.5 - 1.1 mg/dL 02/13/2023 4:54 PM EDT [facility] GLOMERULAR FILTRATION RATE 38(L) >60 02/13/2023 4:54 PM EDT [facility] Comment: This eGFR result was calculated using the CKD-EPI 2020 Creatinine Equation NA 143 135 - 145 mEq/L 02/13/2023 4:54 PM EDT [facility] K 4.5 3.5 - 5.5 mmol/L 02/13/2023 4:54 PM EDT [facility] CL 110 96 - 110 mmol/L 02/13/2023 4:54 PM EDT [facility] CARBON DIOXIDE (CO2) 26 21 - 32 mmol/L 02/13/2023 4:54 PM EDT [facility] ANION GAP 7 3 - 11 02/13/2023 4:54 PM EDT [facility] CALCIUM 9.1 8.5 - 10.5 mg/dL 02/13/2023 4:54 PM EDT [facility] 02/13/2023 1:21 PM EDT 02/13/2023 1:22 PM EDT Narrative [facility] - 02/13/2023 4:54 PM EDT Release to patient->Immediate Johana Lizarraga MD LAB [facility] * (ABNORMAL) HEMOGLOBIN A1C (02/13/2023 1:21 PM EDT) GLYCATED HEMOGLOBIN A1C 7.6(H) <6.5 % 02/13/2023 5:38 PM EDT [facility] ESTIMATED AVERAGE GLUCOSE 171 mg/dL 02/13/2023 5:38 PM EDT [facility] 02/13/2023 1:21 PM EDT 02/13/2023 1:22 PM EDT Narrative [facility] - 02/13/2023 5:38 PM EDT Release to patient->Immediate Johana Lizarraga MD LAB [facility] documented in this encounter Visit Diagnoses Diagnosis DM (diabetes mellitus), 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 Type II or unspecified type diabetes mellitus with neurological manifestations, not stated as uncontrolled Stage 3 chronic kidney disease, unspecified whether stage 3a or 3b CKD (HCC) Age-related osteoporosis without current pathological fracture Senile osteoporosis DM (diabetes mellitus), type 2 with neurological complications (HCC) Type II or unspecified type diabetes mellitus with neurological manifestations, not stated as uncontrolled Stage 3 chronic kidney disease, unspecified whether stage 3a or 3b CKD (HCC) documented in this encounter Care Teams Senior Clinical Research Scientist Relationship Specialty Start Date End Date Susie [address]arr[address] [address] PCP - General Internal Medicine 01/11/23 02/01/24 Lizbeth Schilling APRN [address] [place] [address] PCP - General Internal Medicine 02/02/24 02/11/[address] [address] PCP - General Internal Medicine 02/12/24 Triston Bailey MD [address] [place] [address] [place] [address] Shrimp Peeling Machine Tender Cardiovascular Disease 06/10/20 Remedios Warren PA [address] [place] [address] [place] [address] Cardiology 12/08/21 Umang Corado NP [address] [place] [address] [place] [address] Specialist Cardiology 02/23/22 Chanda Soria NP [address] [place] [address] [place] [address] Cardiology 08/11/22 Loreto Albert MD [address] [place] [address] Internal Medicine 04/13/23 documented as of this encounter
--- OUTSIDE RECORDS SUMMARY | 2024-05-21 15:46 | XMS_ITS | Encounter Summary ---
Author Organization [facility] Address [address] [place] [address] Care Team Providers Care Logging Tractor Operator Swamp Name Role Phone Ashley Rosado APRN Primary Care Provider Triston Franks MD Unavailable Remedios Warren Unavailable Unavailable Umang Corado TOXICOLOGY TEACHER Unavailable Johana Lizarraga MD Primary Care Provider Chanda Soria NP Unavailable Susie Starr DO Primary Care Provider Johana Lizarraga MD Primary Care Provider Susie Starr DO Primary Care Provider Phil Rodriguez MD Primary Care Provider Unavail able Susie Starr DO Primary Care Provider [phone] Loreto Albert MD Unavailable [phone] Lizbeth Schilling APRN Primary Care Provider Susie Starr DO Primary Care Provider [phone] Encounter Details Date Type Department Care Team Description 06/25/2020 Health Sciences Manager Report Medical Records [address] [place] [address] Abstract, Provider Social History Tobacco Use Types [...] week 04/13/2023 How often do you attend [facility] or yazidism services? More than 4 times per year [...] have Coronavirus / COVID-19? No / Unsure 06/19/2020 8:04 AM EST documented as of this encounter Plan of Treatment Not on file documented as of this encounter Visit Diagnoses Not on filedocumented in this encounter Care Teams Logging Tractor Operator Swamp Relationship Specialty Start Date End Date Ashley Rosado APRN PCP - General Internal Medicine 09/20/19 06/27/22 Johana Lizarraga MD [address] [place] [address] [place] [address] PCP - General Internal Medicine 06/28/22 11/30/22 Susie Starr, DO [address] [place] [address] PCP - General Internal Medicine 12/01/22 12/01/22 Johana Lizarraga MD [address] [place] [address] [place] [address] PCP - General Internal Medicine 12/02/22 12/29/22 [facility], [address] [place] [address] PCP - General Internal Medicine 12/30/22 12/30/22 Phil Rodriguez MD 305 [place] [address] PCP - General Internal Medicine 01/04/23 01/10/23 [facility] [address] [place] [address] PCP - General Internal Medicine 01/11/23 02/01/24 Lizbeth Schilling, RETAIL SALES TEAMMATE [address] [place] [address] PCP - General Internal Medicine 02/02/24 02/11/24 [facility] [address] [place] [address] PCP - General Internal Medicine 02/12/24 Triston Bailey MD [address] [place] [address] [place] [address] High Density Press Operator Cardiovascular Disease 06/10/20 Remedios Warren PA [address] [facility] [place] [address] Cardiology 12/08/21 Umang Corado NP [address] [facility] [place] [address] Specialist Cardiology 02/23/22 Chanda Soria NP [address] [place] [address] [address] Cardiology 08/11/22 Loreto Albert MD [address] [place] [address] Internal Medicine 04/13/23 documented as of this encounter
--- OUTSIDE RECORDS SUMMARY | 2024-05-21 15:46 | XMS_ITS | Encounter Summary ---
Author Organization [facility] Address [address] [place] [address] Care Team Providers Care Mobile Sales Technician Name Role Phone Phil Rodriguez MD Primary Care Provider Unavail able Ashley Rosado APRN Primary Care Provider Unav ailable Triston Bailey MD Unavailable [phone] Remedios Warren PA Unavailable Unavailable Umang Corado TECHNICAL ILLUSTRATIONS MAP INKER Unavailable [phone] Johana Lizarraga MD Primary Care Provider Chanda Soria TECHNICAL ILLUSTRATIONS MAP INKER Unavailable Susie Starr DO Primary Care Provider [phone] Johana Lizarraga MD Primary Care Provider Susie Starr DO Primary Care Provider Phil Rodriguez MD Primary Care Provider Unavail able Susie Starr DO Primary Care Provider [phone] Loreto Albert MD Unavailable [phone] Lizbeth Schilling APRN Primary Care Provider [phone] Susie Starr DO Primary Care Provider [phone] Reason for Visit * Reason Onset Date Comments hospital follow up 01/17/2019 Encounter Details Date Type Department Care Team Description 01/17/2019 Telephone Adult Medicine [address] [address] Phil Rodriguez MD hospital follow up Social History Tobacco Use Types Packs/Day Years [...] How often do you attend [facility] or alevism services? More than 4 times per year 04/13/2023 Do you belong to any clubs o r organizations such as gnosticist groups, unions, fraternal or athletic groups, or [...] encounter Miscellaneous Notes * Telephone Encounter - Lizbeth Delacruz L.P.N. - 01/21/2019 9:37 AM EDT Margarita Kidd (Self) [phone] Call placed to pt. Hospital follow up for [facility], pt was then in Rehab in [place]. Dr. Rodriguez on 01/24/19 at 1:30 PM. * Telephone Encounter - Lzibeth Delacruz L.P.NManoj - 01/18/2019 9:04 AM EDT Telephone Information: Call placed to pt home number. No answer. Message left for return call. * Telephone Encounter - Cecile Mayo M.A - 01/17/2019 4:10 PM EDT Left message to call back ask for message pool nurse or re-message p [phone]. * Telephone Encounter - Inés Luther - 01/17/2019 4:00 PM EDT Hospital follow up appointment needed Hospital patient was treated at: [facility] Was this only an ER visit or was the patient admitted to the hospital? Admitted to hospital Date of visit if ER visit only: If patient was admitted what was the date of discharge? 01/14/2019 Reason/diagnosis for visit or stay: traumatic hermorage When was the patient told to follow up? 7-10 days Was visit or stay related to an injury? YES- fell down stairs If yes, what was the date of injury (DOI)? If yes, was the injury due to N/A documented in this encounter Plan of Treatment Not on file documented as of this encounter Visit Diagnoses Not on filedocumented in this encounter Care Teams Mobile Sales Technician Relationship Specialty Start Date End Date Phil Rodriguez MD PCP - General Internal Medicine 12/15/14 09/19/19 Ashley [place]ado APRN PCP - General Internal Medicine 09/20/19 06/27/22 Johana Lizarraga MD [address] [place] [address] [place] [address] PCP - General Internal Medicine 06/28/22 11/30/22 [facility], [address] [place] [address] PCP - General Internal Medicine 12/01/22 12/01/22 Johana Lizarraga MD [address] [place] [address] [place] [address] PCP - General Internal Medicine 12/02/22 12/29/22 [facility], [address] [facility] [place] [address] PCP - General Internal Medicine 12/30/22 12/30/22 Phil Rodriguez MD PCP - General Internal Medicine 01/04/23 01/10/23 [facility] [address] [place] [address] PCP - General Internal Medicine 01/11/23 02/01/24 Lizbeth Schilling, MANAGEMENT ASSOCIATE [address] [place] [address] PCP - General Internal Medicine 02/02/24 02/11/24 [facility] [address] [place] [address] PCP - General Internal Medicine 02/12/24 Triston Bialey MD [address] [place] [address] [place] [address] Stopper Maker Helper Cardiovascular Disease 06/10/20 Remedios Warren PA 2 [facility] [place] [address] Cardiology 12/08/21 Umang Corado NP 2 [facility] [place] [address] Specialist Cardiology 02/23/22 Chanda Soria NP [address] [place] [address] Cardiology 08/11/22 Loreto Albert MD [address] [place] [address] Internal Medicine 04/13/23 documented as of this encounter
--- OUTSIDE RECORDS SUMMARY | 2024-05-21 15:47 | XMS_ITS | Encounter Summary ---
Author Organization [facility] Address [address] [place] [address] Care Team Providers Care Live Source Operator Name Role Phone Ashley Rosado APRN Primary Care Provider Unav Triston Jaffe MD Unavailable Remedios Warren Unavailable Unavailable Umang Corado INFECTION PREVENTIONIST Unavailable Johana Lizarraga MD Primary Care Provider Chanda Soria NP Unavailable Susie Starr DO Primary Care Provider Johana Lizarraga MD Primary Care Provider Susie Starr DO Primary Care Provider Phil Rodriguez MD Primary Care Provider Unavail able Susie Starr DO Primary Care Provider Loreto Albert MD Unavailable [phone] Lizbeth Schilling APRN Primary Care Provider Susie Starr DO Primary Care Provider [phone] Encounter Details Date Type Department Care Team Description 04/20/2021 Orders Only Adult Medicine A - [address] [id number] Lizbeth Schilling APRN [address] [place] [address] Social History Tobacco Use Types Packs/Day Years [...] 04/13/2023 How often do you attend [facility] or restorationism services? More than 4 times per year 04/13/2023 Do you belong to any clubs o r organizations such as anglican groups, unions, fraternal or athletic groups, or [...] have Coronavirus / COVID-19? No / Unsure 04/19/2021 12:40 PM EST documented as of this encounter Plan of Treatment Not on file documented as of this encounter Visit Diagnoses Not on filedocumented in this encounter Care Teams Live Source Operator Relationship Specialty Start Date End Date Ashley Rosado APRN PCP - General Internal Medicine 09/20/19 06/27/22 Johana Lizarraga MD [address] [place] [address] [place] [address] PCP - General Internal Medicine 06/28/22 11/30/22 [facility], [address] [place] [address] PCP - General Internal Medicine 12/01/22 12/01/22 Johana Lizarraga MD [address] [place] [address] [place] [address] PCP - General Internal Medicine 12/02/22 12/29/22 [facility], [address] [facility] [place] [address] PCP - General Internal Medicine 12/30/22 12/30/22 Phil Rodriguez MD [address] [facility] [place] [address] PCP - General Internal Medicine 01/04/23 01/10/23 [facility], [address] [place] [address] PCP - General Internal Medicine 01/11/23 02/01/24 Lizbeth Schilling, AIR DRIER MACHINE OPERATOR [address] [place] [address] PCP - General Internal Medicine 02/02/24 02/11/24 [facility], [address] [place] [address] PCP - General Internal Medicine 02/12/24 Triston Bailey MD [address] [place] [address] [place] [address] Dimension Mill Worker Cardiovascular Disease 06/10/20 Remedios Warren PA [address] [place] [address] [place] [address] Cardiology 12/08/21 Umang Corado NP [address] [place] [address] [place] [address] Specialist Cardiology 02/23/22 Chanda Soria NP [address] [place] [address] Breann Hui [address] [place] [address] Cardiology 08/11/22 Loreto Albert MD [address] [place] [address] Internal Medicine 04/13/23 documented as of this encounter
--- OUTSIDE RECORDS SUMMARY | 2024-05-21 15:47 | XMS_ITS | Encounter Summary ---
Author Organization [facility] Address [address] [place] [address] Care Team Providers Care Communications Tech Name Role Phone Ashley Rosado APRN Primary Care Provider Triston Franks MD Unavailable Remedios Warren Unavailable Unavailable Umang Corado NET ARCHITECT Unavailable Johana Lizarraga MD Primary Care Provider Chanda Soria NP Unavailable [phone] Susie Starr DO Primary Care Provider Johana Lizarraga MD Primary Care Provider Susie Starr DO Primary Care Provider Phil Rodriguez MD Primary Care Provider Unavail able Susie Starr DO Primary Care Provider [phone] Loreto Albert MD Unavailable Lizbeth Schilling APRN Primary Care Provider [phone] Susie Starr DO Primary Care Provider [phone] Encounter Details Date Type Department Care Team Description 04/03/2021 Hospital Medical Records [address] [place] [address] Social History Tobacco Use Types Packs/Day Years [...] have Coronavirus / COVID-19? No / Unsure 04/05/2021 3:41 PM EST documented as of this encounter Plan of Treatment Not on file documented as of this encounter Procedures Procedure Name Priority Date/Time Associated Diagnosis Comments OUTSIDE EKG Routine 04/02/2021 OUTSIDE PLAIN FILM Routine 04/02/2021 OUTSIDE LAB Routine 04/02/2021 documented in this encounter Results * OUTSIDE PLAIN FILM (04/02/2021) Provider Abstract RADIOLOGY * OUTSIDE LAB (04/02/2021) Provider Abstract LAB * OUTSIDE EKG (04/02/2021) Provider Abstract CARDIOLOGY documented in this encounter Visit Diagnoses Not on filedocumented in this encounter Care Teams Communications Tech Relationship Specialty Start Date End Date Ashley Rosado APRN PCP - General Internal Medicine 09/20/19 06/27/22 Johana Lizarraga MD [address] [place] [address] [place] [address] PCP - General Internal Medicine 06/28/22 [facility]30[facility]22 [facility] [address] [place] [address] PCP - General Internal Medicine 12/01/22 12/01/22 Johana Lizarraga MD [address] [place] [address] [place] [address] PCP - General Internal Medicine 12/02/22 12/29/22 aZcharyLisa ramirezmana, DO [address] [place] [address] PCP - General Internal Medicine 12/30/22 12/30/22 Phil Rodriguez MD [address] [place] [address] PCP - General Internal Medicine 01/04/23 01/10/23 [facility], DO [address] [place] [address] PCP - General Internal Medicine 01/11/23 02/01/24 Lizbeth Schilling APRN [address] [place] [address] PCP - General Internal Medicine 02/02/24 02/11/24 ZacharyLisa ramirezmana, DO [address] [place] [address] PCP - General Internal Medicine 02/12/24 Triston Bailey MD [address] [place] [address] [place] [address] Air Cargo Specialist Supervisor Cardiovascular Disease 06/10/20 Remedios Warren PA [address] [place] [address] [place] [address] Cardiology 12/08/21 Umang Corado NP [address] [place] [address] [place] [address] Specialist Cardiology 02/23/22 Chanda Soria NP [address] [place] [address] [place] [address] Cardiology 08/11/22 Loreto Albert MD [address] [place] [address] Internal Medicine 04/13/23 documented as of this encounter
--- OUTSIDE RECORDS SUMMARY | 2024-05-21 15:47 | XMS_ITS | Encounter Summary ---
Author Organization [facility] Address [address] [place] [address] Care Team Providers Care Drying Frame Operator Name Role Phone Ashley Rosado APRN Primary Care Provider Unav Triston Jaffe MD Unavailable [phone] Remedios Warren Unavailable Unavailable Umang Corado TRAVEL RN OR Unavailable Johana Lizarraga MD Primary Care Provider [...] Details Date Type Department Care Team Description 04/13/2021 Telephone Pulmonology - [place] [address] [facility] [address] [place] [address] Santiago Chris MD [address] [place] [address] Social History Tobacco Use Types Packs/Day Years [...] 04/13/2023 How often do you attend [facility] or orthodox services? More than 4 times per year 04/13/2023 Do you belong to any clubs o r organizations such as synagogue groups, unions, fraternal or athletic groups, or [...] or suspected to have Coronavirus / COVID-19? Unable to assess 04/08/2021 1:57 PM EST documented as of this encounter Plan of Treatment Not on file documented as of this encounter Visit Diagnoses Not on filedocumented in this encounter Care Teams Drying Frame Operator Relationship Specialty Start Date End Date Ashley Rosado APRN PCP - General Internal Medicine 09/20/19 06/27/22 Johana Lizarraga MD [address] [place] [address] [place] [address] PCP - General Internal Medicine 06/28/22 11/30/22 [facility], [address] [place] [address] PCP - General Internal Medicine 12/01/22 12/01/22 Johana Lizarraga MD [address] [place] [address] [place] [address] PCP - General Internal Medicine 12/02/22 12/29/22 [facility], [address] [place] [address] PCP - General Internal Medicine 12/30/22 12/30/22 Phil Rodriguez MD [address] [place] [address] PCP - General Internal Medicine 01/04/23 01/10/23 [facility], [address] [place] [address] PCP - General Internal Medicine 01/11/23 02/01/24 Lizbeth Schilling, RETURNING OFFICER [address] [place] [address] PCP - General Internal Medicine 02/02/24 02/11/24 [facility], [address] [place] [address] PCP - General Internal Medicine 02/12/24 Triston Bailey MD [address] [place] [address] [place] [address] Clinic Business Manager Cardiovascular Disease 06/10/20 Remedios Warren PA [address] [place] [address] [place] [address] Cardiology 12/08/21 Umang Corado NP [address] [place] [address] [place] [address] Specialist Cardiology 02/23/22 Chanda Soria NP [address] [place] [address] Bre[address] Hui [address] [place] [address] Cardiology 08/11/22 Loreto Albert MD [address] [place] [address] Internal Medicine 04/13/23 documented as of this encounter
--- OUTSIDE RECORDS SUMMARY | 2024-05-21 15:47 | XMS_ITS | Encounter Summary ---
Author Organization [facility] Address [address] [place] [address] Care Team Providers Care Square Dance Caller Name Role Phone Phil Rodriguez MD Primary Care Provider Unavail able Ashley Rosado APRN Primary Care Provider Unav ailable Triston Bailey MD Unavailable Remedios Warren PA Unavailable Unavailable Umang Corado SUPERVISOR CONTINGENTS Unavailable [phone] Johana Lizarraga MD Primary Care Provider Chanda Soria SUPERVISOR CONTINGENTS Unavailable Susie Starr DO Primary Care Provider Johana Lizarraga MD Primary Care Provider Susie Starr DO Primary Care Provider Phil Rodriguez MD Primary Care Provider Unavail able Susie Starr DO Primary Care Provider [phone] Loreto Albert MD Unavailable [phone] Lizbeth Schilling APRN Primary Care Provider [phone] Susie Starr DO Primary Care Provider [phone] Encounter Details Date Type Department Care Team Description 06/08/2015 COLLET GLUER/MassPat Report Medical Records [address] [place] [address] Abstract, Provider Social History Tobacco Use Types [...] you attend formerly [facility] or hoahaoism services? More than 4 times per year 04/13/2023 Do you belong to any clubs o r organizations such as quaker groups, unions, fraternal or athletic groups, or [...] on filedocumented in this encounter Care Teams Square Dance Caller Relationship Specialty Start Date End Date Phil Rodriguez MD PCP - General Internal Medicine 12/15/14 09/19/19 Ashley Rosado APRN PCP - General Internal Medicine 09/20/19 06/27/22 Johana Lizarraga MD [address] [place] [address] [place] [address] PCP - General Internal Medicine 06/28/22 11/30/22 Susie Starr, [address] [place] [address] PCP - General Internal Medicine 12/01/22 12/01/22 Johana Lizarraga MD [address] [place] [address] [place] [address] PCP - General Internal Medicine 12/02/22 12/29/22 [facility] [address] [place] [address] PCP - General Internal Medicine 12/30/22 12/30/22 Phil Rodriguez MD PCP - General Internal Medicine 01/04/23 01/10/[address] [address] PCP - General Internal Medicine 01/11/23 02/01/24 Lizbeth Schilling, HIGH WIRE ARTIST [address] [place] [address] PCP - General Internal Medicine 02/02/24 02/11/[address] [address] PCP - General Internal Medicine 02/12/24 Triston Bailey MD [address] [place] [address] [place] [address] Electrician Sound Cardiovascular Disease 06/10/20 Remedios Warren PA [address] [place] [address] [place] [address] Cardiology 12/08/21 Umang Corado NP [address] [place] [address] [place] [address] Specialist Cardiology 02/23/22 Chanda Soria NP [address] [place] [address] [place] [address] Cardiology 08/11/22 Loreto Albert MD [address] [place] [address] Internal Medicine 04/13/23 documented as of this encounter
--- OUTSIDE RECORDS SUMMARY | 2024-05-21 15:47 | XMS_ITS | Encounter Summary ---
Author Organization [facility] Address [address] [place] [address] Care Team Providers Care Mail Teller Name Role Phone Phil Rodriguez MD Primary Care Provider Unavail able Ashley Rosado APRN Primary Care Provider Unav ailable Triston Bailey MD Unavailable Remedios Warren PA Unavailable Unavailable Umang Corado AUTHOR'S AGENT Unavailable [phone] Johana Lizarraga MD Primary Care Provider Chanda Soria AUTHOR'S AGENT Unavailable Susie Starr DO Primary Care Provider Johana Lizarraga MD Primary Care Provider Susie Starr DO Primary Care Provider Phil Rodriguez MD Primary Care Provider Unavail able Susie Starr DO Primary Care Provider [phone] Loreto Albert MD Unavailable [phone] Lizbeth Schilling APRN Primary Care Provider [phone] Susie Starr DO Primary Care Provider [phone] Encounter Details Date Type Department Care Team Description 03/12/2018 Injection Molding Process Technician Report Medical Records [address] [place] [address] Suzi Burns Social History Tobacco Use Types Packs/Day Years [...] week 04/13/2023 How often do you attend [facility] or congregation services? More than 4 [...] on filedocumented in this encounter Care Teams Mail Teller Relationship Specialty Start Date End Date Phil Rodriguez MD PCP - General Internal Medicine 12/15/14 09/19/19 Ashley Rosado APRN PCP - General Internal Medicine 09/20/19 06/27/22 Johana Lizarraga MD [address] [place] [address] [place] [address] PCP - General Internal Medicine 06/28/22 11/30/22 Susie Starr, DO [address] [place] [address] PCP - General Internal Medicine 12/01/22 12/01/22 Johana Lizarraga MD [address] [place] [address] [place] [address] PCP - General Internal Medicine 12/02/22 12/29/[address] [address] PCP - General Internal Medicine 12/30/22 12/30/22 Phil Rodriguez MD PCP - General Internal Medicine 01/04/23 01/10/[address] [address] PCP - General Internal Medicine 01/11/23 02/01/24 Lizbeth Schilling, TRANSMISSION SUPERVISOR [address] [place] [address] PCP - General Internal Medicine 02/02/24 02/11/[address] [address] PCP - General Internal Medicine 02/12/24 Triston Bailey MD [address] [place] [address] [place] [address] Senior Program Analyst Cardiovascular Disease 06/10/20 Remedios Warren PA [address] [place] [address] [place] [id number] Cardiology 12/08/21 Umang Corado NP [address] [place] [address] [place] [id number] Specialist Cardiology 02/23/22 Chanda Soria NP [address] [place] [address] [place] [address] Cardiology 08/11/22 Loreto Albert MD [address] [place] [address] Internal Medicine 04/13/23 documented as of this encounter
--- OUTSIDE RECORDS SUMMARY | 2024-05-21 15:47 | XMS_ITS | Encounter Summary ---
Author Organization [facility] Address [address] [place] [address] Care Team Providers Care Civil Engineer In Training Name Role Phone Ashley Rosado APRN Primary Care Provider Unav Triston Jaffe MD Unavailable Remedios Warren Unavailable Unavailable Umang Corado LAMPS TESTER AND INSPECTOR Unavailable Johana Lizarraga MD Primary Care Provider Chanda Soria NP Unavailable Susie Starr DO Primary Care Provider Johana Lizarraga MD Primary Care Provider Susie Starr DO Primary Care Provider Phil Rodriguez MD Primary Care Provider Unavail able Susie Starr DO Primary Care Provider Loreto Albert MD Unavailable [phone] Lizbeth Schilling APRN Primary Care Provider Susie Starr DO Primary Care Provider [phone] Reason for Visit * Reason Onset Date Comments refill request 09/04/2020 Encounter Details Date Type Department Care Team Description 09/04/2020 Refill Adult Medicine [address] [address] Ashley Rosado APRN refill request Social History [...] week 04/13/2023 How often do you attend [facility] or mandaeism services? More than 4 times per year [...] have Coronavirus / COVID-19? No / Unsure 09/01/2020 10:25 AM EDT documented as of this encounter Miscellaneous Notes * Telephone Encounter - Eufemia Hernandez M.A. - 09/04/2020 9:31 AM EDT Last office visit 09/01/20 Lab Results Component Value Date URBENZO NONE DETECTED 04/23/2020 UROPIATES NONE DETECTED 04/23/2020 URBARBITUATE NONE DETECTED 04/23/2020 PAINAMPHETAM NONE DETECTED 04/23/2020 PAINCOCAINE NONE DETECTED 04/23/2020 PAINCANNABIN NONE DETECTED 04/23/2020 Controlled substance contract and last issue date of medication reviewed. Patient is due for medication. Patient's MassPAT report was printed to be reviewed by the signing provider. Send to scanning if stamped to do so. 08/06/2020 2 08/06/2020 LORAZEPAM 2 MG TABLET 56.0 28 STE[address] HOW [id number] [facility] (8007) 0/0 [place] 07/06/2020 1 07/06/2020 LORAZEPAM 2 MG TABLET 56.0 56 RA ETHAN, [id number] [facility] (8007) 0/0 [place] 06/08/2020 1 06/08/2020 LORAZEPAM 2 MG TABLET 56.0 28 RA ETHAN, [id number] [facility] (8007) 0/0 [place] 05/07/2020 1 05/07/2020 LORAZEPAM 2 MG TABLET 56.0 28 STEPHANY HOW [id number] [facility] (8007) 0/0 [place] 04/06/2020 1 04/06/2020 LORAZEPAM 2 MG TABLET 56.0 28 RA ETHAN, [id number] [facility] (8007) 0/0 [place] 03/06/2020 1 03/06/2020 LORAZEPAM 2 MG TABLET 56.0 28 STEPHANY HOW [id number] [facility] (8007) 0/0 Comm Ins [place] 02/04/2020 1 02/04/2020 LORAZEPAM 2 MG TABLET 56.0 28 STEPHANY HOW [id number] [facility] (8007) 0/0 [place] 01/06/2020 1 01/06/2020 LORAZEPAM 2 MG TABLET 56.0 28 RA ETHAN, [id number] [facility] (8007) 0/0 [place] 12/06/2019 1 12/06/2019 LORAZEPAM 2 MG TABLET 56.0 28 STEPHANY HOW [id number] [facility] (8007) 0/0 [place] 11/05/2019 1 11/05/2019 LORAZEPAM 2 MG TABLET 56.0 28 KE ARM [id number] [facility] (8007) 0/0 [place] 10/07/2019 1 10/07/2019 LORAZEPAM 2 MG TABLET 56.0 28 AL PIE [id number] [facility] (8007) 0/0 [place] 09/05/2019 1 09/05/2019 LORAZEPAM 2 MG TABLET 56.0 28 BANNER [id number] [place] (8007) 0/0 Comm Ins * Telephone Encounter - Nerissa German - 09/04/2020 9:08 AM EDT Patient would like script to be: E-PRESCRIBED/FAXED TO PHARMACY WHEN WAS THE PATIENT'S LAST APPOINTMENT IN ADULT MEDICINE? 09/01/20 WHEN WAS THE LAST TIME THE PATIENT SAW THEIR PCP? 06/29/20 Does patient have an upcoming appointment? No Pt will callback to schedule (THE MEDICATION REQUESTED IS ON THE MED [...] N/A Patients current insurance carrier is: Payor: [facility] MCR / Plan: O $0 [facility] [id number] / Product Type: HMO [id number] documented in this encounter Plan of Treatment Not on file documented as of this encounter Visit Diagnoses Not on filedocumented in this encounter Care Teams Civil Engineer In Training Relationship Specialty Start Date End Date Ashley Rosado APRN PCP - General Internal Medicine 09/20/19 06/27/22 Johana Lizarraga MD [address] [place] [address] Dr Schae[place] [id number] PCP - General Internal Medicine 06/28/22 11/30/22 [facility], [address] [place] [address] PCP - General Internal Medicine 12/01/22 12/01/22 Johana Lizarraga MD [address] [place] [address] [place] [address] PCP - General Internal Medicine 12/02/22 12/29/22 [facility], [address] [place] [address] PCP - General Internal Medicine 12/30/22 12/30/22 Phil Rodriguez MD [address] [place] [address] PCP - General Internal Medicine 01/04/23 01/10/23 [facility], [address] [place] [address] PCP - General Internal Medicine 01/11/23 02/01/24 Lizbeth Schilling, MELISSA [address] [place] [address] PCP - General Internal Medicine 02/02/24 02/11/24 [facility], [address] [place] [address] PCP - General Internal Medicine 02/12/24 Triston Bailey MD [address] [place] [address] [place] [address] Ambulatory Care Cardiovascular Disease 06/10/20 Remedios Warren, PA [address] [facility] [place] [address] Cardiology 12/08/21 Umang Corado NP [address] [facility] [place] [address] Specialist Cardiology 02/23/22 Chanda Soria NP [address] [place] [address] Cardiology 08/11/22 Loreto Albert MD [address] [place] [address] Internal Medicine 04/13/23 documented as of this encounter
== END 2024-05-21 15:43 | disposition home or self-care (01) ==
LOC: HO.HSMS 14:47
PROVIDERS: PCP Internal Medicine; Visit Provider Nurse Practitioner Family
DX: G43.009 Migraine without aura, not intractable, without status migrainosus (principal); D64.9 Anemia, unspecified; Z86.79 Personal history of other diseases of the circulatory system; R25.1 Tremor, unspecified
CPT/HCPCS: 99214

== ENCOUNTER → 2024-05-21 14:47 | Outpatient (BNVA) | payer OTHER, SELFPAY | PROVIDERS: PCP Internal Medicine; Visit Provider Nurse Practitioner Family | DX: G43.009 Migraine without aura, not intractable, without status migrainosus (principal); D64.9 Anemia, unspecified; R25.1 Tremor, unspecified; Z86.79 Personal history of other diseases of the circulatory system | CPT/HCPCS: 99212 ==

== ENCOUNTER 2024-07-09 13:34 | Outpatient (AMB) | payer OTHER, SELFPAY ==
--- NOTE | 2024-07-09 14:14 | HO.NEPHOV ---
Vital Signs 07/09/24 14:15 Height 5 ft 3 in Weight 154 lb BMI 27.3 BP 130/58 L Blood Pressure Location Lt brachial Position Sitting Pulse 80 Pulse Source Pulse Oximeter Pulse Oximetry (%) 98 Oxygen Delivery Method Room Air Intake Visit Reasons: Follow up 3mo-Conf Senior Living Sales Counselor Required: No Accompanied by: Self / Same As Patient Allergies naproxen Allergy (Unknown, Verified 07/09/24 14:17) Unknown Penicillins Allergy (Unknown, Verified 07/09/24 14:17) Unknown Do you need a note to return to daycare/school/sports/work: No HPI Comments Details: Laura was seen in the office in follow-up for her chronic kidney disease and hypertension. She has history of for diabetes mellitus and hypertension. She has history of carotid disease. Her blood sugar control is fair. She has not had any epistaxis, photosensitivity, skin rashes, pedal edema, excessive nonsteroidal anti-inflammatory medication intake, hematuria, renal stones, new bone or back pain. She takes metformin. She is tolerating lisinopril. She had been on Trulicity but is concerned about its side effects. She is on amlodipine as well for her blood pressure. She avoids excessive nonsteroidal anti-inflammatory medications. She tries to hydrate herself well. Her serum creatinine had been stable . She has no chest pain, shortness of breath, paroxysmal nocturnal dyspnea, orthopnea, history of hypercalcemia or dizziness. She has not had any nephrolithiasis since last office visit. She had been started on Jardiance. She claims to be compliant with her medications. [facility] Medical History HLD (hyperlipidemia) HTN (hypertension) Diverticulitis Anxiety and depression Cervical spinal stenosis Tremor CKD (chronic kidney disease) Thyroid nodule LAURA positive Carotid stenosis History of COVID-19 Nephrolithiasis Polyneuropathy CAD (coronary artery disease) Diabetes Surgical History Status post cardiac catheterization History of back surgery Family History Father HTN (hypertension) Diabetes mellitus Heart disease Mother HTN (hypertension) Diabetes mellitus Kidney disease Social History Alcohol intake: current Alcohol intake frequency: former alcohol drinker Patient Tobacco Use Status: Former Tobacco user Review of Systems Const All systems reviewed & are unremarkable except as noted in HPI and below Physical Exam Vital Signs: Last Vital Signs Pulse 80 07/09/24 14:15 BP 130/58 L 07/09/24 14:15 Pulse Ox 98 07/09/24 14:15 Oxygen Delivery Method Room Air 07/09/24 14:15 BMI result Body Mass Index 27.3 Const General: comfortable and no acute distress Orientation/consciousness: patient oriented x3 HEENT Head: Yes normocephalic Mouth: Normal oral and palatal mucosa present Eyes EOM: EOMs intact bilaterally Neck Neck: Yes supple Resp Auscultation: clear to auscultation bilaterally Cardio Jugular venous distension: no JVD Rate: regular rate GI Palpation (GI): Soft to palpation Auscultation: normal bowel sounds General: Yes no CVA tenderness Back/Spine/Pelvis Back: no CVA tenderness Skin General skin exam: no rashes or lesions noted Neuro General: patient oriented x3 and moves all extremities Extrem General: Yes no pedal edema Results Reviewed Nephrology Results: Hgb 10.4 g/dl (12.0-16.0) L 09/20/23 WBC 5.9 X10*3/uL (4.8-10.8) 09/20/23 Plt Count 262 X10*3/uL (160-400) 09/20/23 Sodium 141 mmol/L (135-145) 04/30/24 Potassium 5.4 mmol/L (3.3-5.1) H 04/30/24 Chloride 112 mmol/L (96-108) H 04/30/24 Carbon Dioxide 22 mmol/L (22-29) 04/30/24 BUN 33 mg/dL (9-16) H 04/30/24 Creatinine 1.33 mg/dL (0.5-1.4) 04/30/24 Calcium 8.9 mg/dL (8.4-10.2) 09/20/23 Urine Creatinine 105.95 mg/dL 09/21/23 Protein/Creatinin Ratio TNP 09/21/23 Assessment & Plan Assessment & Plan (1) CKD (chronic kidney disease) stage 3, GFR 30-59 ml/min: Code(s): N18.30 - Chronic kidney disease, stage 3 unspecified Category: Medical Qualifiers: Chronic kidney disease stage 3 subtype: stage 3a (GFR 45-59) Qualified Code(s): N18.31 - Chronic kidney disease, stage 3a (2) HTN (hypertension): Code(s): I10 - Essential (primary) hypertension Category: Medical Qualifiers: Hypertension type: renovascular hypertension Qualified Code(s): I15.0 - Renovascular hypertension Plan Laura has longstanding hypertension and diabetes mellitus. Her blood sugar control is fair. She needs to maintain steady weight as well as good exercise. She is on a SGLT2 inhibitor. I increased her Jardiance to 25 mg daily. She has carotid disease which has been stable. I held her HCTZ in one of the previous visits. She should maintain good hydration and avoid nonsteroidal anti-inflammatory medications if at all possible. I have answered all questions. Orders: Orders Electrolytes 2 Months I15.0 - Renovascular hypertension, N18.31 - Chronic kidney disease, stage 3a Creatinine 2 Months I15.0 - Renovascular hypertension, N18.31 - Chronic kidney disease, stage 3a Blood Urea Nitrogen 2 Months I15.0 - Renovascular hypertension, N18.31 - Chronic kidney disease, stage 3a Medications: Changed From empagliflozin (Jardiance) 10 mg PO DAILY 30 tabs 4RF To empagliflozin 10 mg (0.4 x 25 mg) PO DAILY 30 tabs 6RF Coding Level of Care Code Est Pt Level 4 (67847) Diagnoses Stage 3a chronic kidney disease N18.31 Chronic kidney disease stage 3 subtype: stage 3a (GFR 45-59) Renovascular hypertension I15.0 Hypertension type: renovascular hypertension
[2024-07-09 14:15] VITALS: BP 130/58; PULSE 80; O2SAT 98; BMI 27.3
== END 2024-07-09 14:50 | disposition home or self-care (01) ==
LOC: HO.HKAS 13:35
PROVIDERS: PCP Internal Medicine; Visit Provider Internal Medicine Nephrology
DX: I12.9 Hypertensive chronic kidney disease with stage 1 through stage 4 chronic kidney disease, or unspecified chronic kidney disease (principal); E11.22 Type 2 diabetes mellitus with diabetic chronic kidney disease; N18.31 Chronic kidney disease, stage 3a
CPT/HCPCS: 99214

== ENCOUNTER → 2024-07-09 13:34 | Outpatient (BNVA) | payer OTHER, SELFPAY | PROVIDERS: PCP Internal Medicine; Visit Provider Internal Medicine Nephrology | DX: I15.0 Renovascular hypertension (principal); E11.22 Type 2 diabetes mellitus with diabetic chronic kidney disease; N18.31 Chronic kidney disease, stage 3a | CPT/HCPCS: 99212 ==

== ENCOUNTER 2024-09-10 14:10 | Outpatient (AMB) | payer OTHER, SELFPAY ==
--- NOTE | 2024-09-10 14:45 | HO.NEPHOV ---
Vital Signs 09/10/24 14:46 Height 5 ft 3 in Weight 152 lb BMI 26.9 BP 116/44 L Blood Pressure Location Lt brachial Position Sitting Pulse 67 Pulse Source Auscultation Pulse Oximetry (%) 98 Oxygen Delivery Method Room Air Intake Visit Reasons: 2 mnts f/u-Conf Transmission Supervisor Required: No Transmission Supervisor Services: Transmission Supervisor Offered & Declined Accompanied by: Self / Same As Patient Allergies naproxen Allergy (Unknown, Verified 09/10/24 14:48) Unknown Penicillins Allergy (Unknown, Verified 09/10/24 14:48) Unknown HPI Comments Details: Laura was seen in the office in follow-up for her chronic kidney disease and hypertension. She has history of for diabetes mellitus and hypertension. She has history of carotid disease. Her blood sugar control is fair. She has not had any epistaxis, photosensitivity, skin rashes, pedal edema, excessive nonsteroidal anti-inflammatory medication intake, hematuria, renal stones, new bone or back pain. She takes metformin. She is tolerating lisinopril. She had been on Trulicity but is concerned about its side effects. She is on amlodipine as well for her blood pressure. She avoids excessive nonsteroidal anti-inflammatory medications. She tries to hydrate herself well. Her serum creatinine had been stable . She has no chest pain, shortness of breath, paroxysmal nocturnal dyspnea, orthopnea, history of hypercalcemia or dizziness. She has not had any nephrolithiasis since last office visit. She had been started on Jardiance. She claims to be compliant with her medications. [facility] Medical History HLD (hyperlipidemia) HTN (hypertension) Diverticulitis Anxiety and depression Cervical spinal stenosis Tremor CKD (chronic kidney disease) Thyroid nodule LAURA positive Carotid stenosis History of COVID-19 Nephrolithiasis Polyneuropathy CAD (coronary artery disease) Diabetes Surgical History Status post cardiac catheterization History of back surgery Family History Father HTN (hypertension) Diabetes mellitus Heart disease Mother HTN (hypertension) Diabetes mellitus Kidney disease Social History Alcohol intake: current Alcohol intake frequency: former alcohol drinker Patient Tobacco Use Status: Former Tobacco user Review of Systems Const All systems reviewed & are unremarkable except as noted in HPI and below Physical Exam Vital Signs: Last Vital Signs Pulse 67 09/10/24 14:46 BP 116/44 L 09/10/24 14:46 Pulse Ox 98 09/10/24 14:46 Oxygen Delivery Method Room Air 09/10/24 14:46 BMI result Body Mass Index 26.9 Const General: comfortable and no acute distress Orientation/consciousness: patient oriented x3 HEENT Head: Yes normocephalic Mouth: Normal oral and palatal mucosa present Eyes EOM: EOMs intact bilaterally Neck Neck: Yes supple Resp Auscultation: clear to auscultation bilaterally Cardio Jugular venous distension: no JVD Rate: regular rate GI Palpation (GI): Soft to palpation Auscultation: normal bowel sounds General: Yes no CVA tenderness Back/Spine/Pelvis Back: no CVA tenderness Skin General skin exam: no rashes or lesions noted Neuro General: patient oriented x3 and moves all extremities Extrem General: Yes no pedal edema Assessment & Plan Assessment & Plan (1) CKD (chronic kidney disease) stage 3, GFR 30-59 ml/min: Code(s): N18.30 - Chronic kidney disease, stage 3 unspecified Category: Medical Qualifiers: Chronic kidney disease stage 3 subtype: stage 3a (GFR 45-59) Qualified Code(s): N18.31 - Chronic kidney disease, stage 3a (2) HTN (hypertension): Code(s): I10 - Essential (primary) hypertension Category: Medical Qualifiers: Hypertension type: renovascular hypertension Qualified Code(s): I15.0 - Renovascular hypertension Plan Laura has longstanding hypertension and diabetes mellitus. Her blood sugar control is fair. She needs to maintain steady weight as well as good exercise. She is on Jardiance to 25 mg daily as well as lisinopril 10 mg daily. Her renal function is close to baseline. She has carotid disease which has been stable. I held her HCTZ in one of the previous visits. She should maintain good hydration and avoid nonsteroidal anti-inflammatory medications if at all possible. I have answered all questions. Orders: Orders Blood Urea Nitrogen 3 Months I15.0 - Renovascular hypertension, N18.31 - Chronic kidney disease, stage 3a Electrolytes 3 Months I15.0 - Renovascular hypertension, N18.31 - Chronic kidney disease, stage 3a Creatinine 3 Months I15.0 - Renovascular hypertension, N18.31 - Chronic kidney disease, stage 3a Coding Level of Care Code Est Pt Level 4 (47075) Diagnoses Stage 3a chronic kidney disease N18.31 Chronic kidney disease stage 3 subtype: stage 3a (GFR 45-59) Renovascular hypertension I15.0 Hypertension type: renovascular hypertension
[2024-09-10 14:46] VITALS: BP 116/44; PULSE 67; O2SAT 98; BMI 26.9
--- OUTSIDE RECORDS SUMMARY | 2024-09-10 15:34 | XMS_ITS | Encounter Summary ---
Author Organization [facility] Address [address] [place] [address] Care Team Providers Care Lapel Stitcher Name Role Phone Phil Rodriguez MD Primary Care Provider Unavail able Ashley Rosado APRN Primary Care Provider Unav ailable Triston Bailey MD Unavailable [phone] Remedios Warren PA Unavailable Unavailable Umang Corado LACQUER SPRAY BOOTH OPERATOR Unavailable Johana Lizarraga MD Primary Care Provider Chanda Soria LACQUER SPRAY BOOTH OPERATOR Unavailable Susie Starr DO Primary Care Provider Johana Lizarraga MD Primary Care Provider Susie Starr DO Primary Care Provider Phil Rodriguez MD Primary Care Provider Unavail able Susie Starr DO Primary Care Provider [phone] Loreto Albert MD Unavailable [phone] Lizbeth Schilling APRN Primary Care Provider [phone] Susie Starr DO Primary Care Provider Reason for Visit * Reason Onset Date Comments Call From Pharmacy 04/05/2017 Encounter Details Date Type Department Care Team Description 04/05/2017 Telephone Adult Medicine [address] [address] Phil Rodriguez MD Call From Pharmacy Social [...] often do you attend [facility] or jehovah's witness services? More than 4 times per year 04/13/2023 Do you belong to any clubs o r organizations such as congregational groups, unions, fraternal or athletic groups, or [...] the office. Please transfer call to [phone] if there is no answer please remessage [...] on filedocumented in this encounter Care Teams Lapel Stitcher Relationship Specialty Start Date End Date Phil Rodriguez MD PCP - General Internal Medicine 12/15/14 09/19/19 Ashley Rosado APRN PCP - General Internal Medicine 09/20/19 06/27/22 Johana Lizarraga MD [address] [place] [address] [place] [address] PCP - General Internal Medicine 06/28/22 11/30/22 Susie Starr, DO [address] [place] [address] PCP - General Internal Medicine 12/01/22 12/01/22 Johana Lizarraga MD Medical [place] [address] PCP - General Internal Medicine 12/02/22 12/29/[address] [address] PCP - General Internal Medicine 12/30/22 12/30/22 Phil Rodriguez MD PCP - General Internal Medicine 01/04/23 01/10/[address] [address] PCP - General Internal Medicine 01/11/23 02/01/24 Lizbeth Schilling, PHYSICIAN/ALLERGY/IMMUNOLOGY [address] [place] [address] PCP - General Internal Medicine 02/02/24 02/11/[address] [address] PCP - General Internal Medicine 02/12/24 Triston Bailey MD [address] [place] [address] [place] [address] Rhit Cardiovascular Disease 06/10/20 Remedios Warren PA [address] [facility] [place] [address] Cardiology 12/08/21 Umang Corado NP [address] [place] [address] [place] [address] Specialist Cardiology 02/23/22 Chanda Soria NP [address] [place] [address] [place] [address] Cardiology 08/11/22 Loreto Albert MD [address] [place] [address] Internal Medicine 04/13/23 documented as of this encounter
--- OUTSIDE RECORDS SUMMARY | 2024-09-10 15:34 | XMS_ITS | Encounter Summary ---
Author Organization [facility] Address [address] [place] [address] Care Team Providers Care Electrophysiology Nurse Practitioner Name Role Phone Triston Bailey MD Unavailable [phone] Remedios Warren Unavailable Unavailable Umang Corado ARCHITECTURAL PROJECT CAPTAIN Unavailable Chanda Soria NP Unavailable [phone] Susie Starr DO Primary Care Provider Loreto Albert MD Unavailable [phone] Lizbeth Schilling APRN Primary Care Provider Susie Starr DO Primary Care Provider [phone] Encounter Details Date Type Department Care Team Description 07/12/2023 SCAN Medical Records [address] [place] [address] [facility] Social History Tobacco Use Types Packs/Day Years [...] How often do you attend [facility] or mormonism services? More than 4 times per year 04/13/2023 Do you belong to any clubs o r organizations such as gnosticism groups, unions, fraternal or athletic groups, or [...] on filedocumented in this encounter Care Teams Electrophysiology Nurse Practitioner Relationship Specialty Start Date End Date Lisa Starrmana, [address] [place] [address] PCP - General Internal Medicine 01/11/23 02/01/24 Lizbeth Schilling APRN [address] [place] [address] PCP - General Internal Medicine 02/02/24 02/11/24 Lisa Starrmana, [address] [place] [address] PCP - General Internal Medicine 02/12/24 Triston Bailey MD [address] [place] [address] [place] [address] Billing Spec Cardiovascular Disease 06/10/20 Remedios Warren PA [address] [place] [address] Dr Hui [address] [place] [address] Cardiology 12/08/21 Umang Corado NP [address] [place] [address] [place] [address] Specialist Cardiology 02/23/22 Chanda Soria NP [address] [place] [address] Breann Hui [address] [place] [address] Cardiology 08/11/22 Loreto Albert MD [address] [place] [address] Internal Medicine 04/13/23 documented as of this encounter
--- OUTSIDE RECORDS SUMMARY | 2024-09-10 15:34 | XMS_ITS | Encounter Summary ---
Author Organization [facility] Address [address] [place] [address] Care Team Providers Care Manager Military Name Role Phone Phil Rodriguez MD Primary Care Provider Unavail able Ashley Rosado APRN Primary Care Provider Unav ailable Triston Bailey MD Unavailable Remedios Warren PA Unavailable Unavailable Umang Corado NP Unavailable Johana Lizarraga MD Primary Care Provider Chanda Soria TRUCK LOADER OVERHEAD CRANE Unavailable Susie Starr DO Primary Care Provider Johana Lizarraga MD Primary Care Provider Susie Starr DO Primary Care Provider Phil Rodriguez MD Primary Care Provider Unavail able Susie Starr DO Primary Care Provider [phone] Loreto Albert MD Unavailable [phone] Lizbeth Schilling APRN Primary Care Provider [phone] Susie Starr DO Primary Care Provider [phone] Reason for Visit * Reason Onset Date Comments Pre-visit Diabetes Lab Adult Medicine 03/04/201503/18 Encounter Details Date Type Department Care Team Description 03/04/2015 Telephone Adult Medicine A [address] [address] Phil Rodriguez MD Pre-visit Diabetes Lab Adult [...] How often do you attend [facility] or yarsanism services? More than 4 times [...] patients voice mail to return call to [facility]. If patient calls back, please instruct the patient to have their diabetes lab work completed at least 3 days prior to their upcoming appointment in Adult Medicine on 03/18/15 at 9:[address] Rodriguez. Let the patient know our lab is open on the weekends in the [place] office only. The patient does not need to be fasting to complete the lab work. documented in this encounter Plan of Treatment Not on file documented as of this encounter Visit Diagnoses Not on filedocumented in this encounter Care Teams Manager Military Relationship Specialty Start Date End Date Phil Rodriguez MD PCP - General Internal Medicine 12/15/14 09/19/19 Ashley Rosado APRN PCP - General Internal Medicine 09/20/19 06/27/22 Johana Lizarraga MD [address] [place] [address] [place] [address] PCP - General Internal Medicine 06/28/22 11/30/22 Susie Starr, [address] [place] [address] PCP - General Internal Medicine 12/01/22 12/01/22 Johana Lizarraga MD [address] [place] [address] [place] [address] PCP - General Internal Medicine 12/02/22 12/29/22 Susie Starr, [address] [place] [address] PCP - General Internal Medicine 12/30/22 12/30/22 Phil Rodriguez MD PCP - General Internal Medicine 01/04/23 01/10/23 Susie Starr, [address] [place] [address] PCP - General Internal Medicine 01/11/23 02/01/24 Lizbeth Schilling HYBRID POWERTRAIN DEVELOPMENT ENGINEER [address] [place] [address] PCP - General Internal Medicine 02/02/24 02/11/24 Ro Susie, DO [address] [place] [address] PCP - General Internal Medicine 02/12/24 Triston Bailey MD [address] [place] [address] [place] [address] Jewel Sawyer Cardiovascular Disease 06/10/20 Remedios Warren, STEPHAN [address] [place] [address] [place] [address] Cardiology 12/08/21 Umang Corado NP [address] [place] [address] [place] [address] Specialist Cardiology 02/23/22 Chanda Soria, KIRAN [address] [place] [address] [address] Cardiology 08/11/22 Loreto Albert MD [address] [place] [address] Internal Medicine 04/13/23 documented as of this encounter
--- OUTSIDE RECORDS SUMMARY | 2024-09-10 15:34 | XMS_ITS | Encounter Summary ---
Author Organization [facility] Address [address] [place] [address] Care Team Providers Care Healthcare Financial Analyst Name Role Phone Triston Bailey MD Unavailable [phone] Remedios Warren Unavailable Unavailable Umang Corado SLIP COVER SEWER Unavailable [phone] Chanda Soria SLIP COVER SEWER Unavailable [phone] Susie Starr DO Primary Care Provider Loreto Albert MD Unavailable [phone] Lizbeth Schilling APRN Primary Care Provider Susie Starr DO Primary Care Provider [phone] Encounter Details Date Type Department Care Team Description 04/07/2023 [facility] Medical Records [address] [place] [address] Abstract, Provider Social History Tobacco Use Types [...] attend [facility] or evangelical services? More than 4 times per year 04/13/2023 Do you belong to any clubs o r organizations such as pentecostalism groups, unions, fraternal or athletic groups, or [...] on filedocumented in this encounter Care Teams Healthcare Financial Analyst Relationship Specialty Start Date End Date Lisa Starrmana, [address] [place] [address] PCP - General Internal Medicine 01/11/23 02/01/24 Lizbeth Schilling APRN [address] [place] [address] PCP - General Internal Medicine 02/02/24 02/11/24 Lisa Starrmana, [address] [place] [address] PCP - General Internal Medicine 02/12/24 Triston Bailey MD [address] [place] [address] [place] [address] Plug Grower Cardiovascular Disease 06/10/20 Remedios Warren PA [address] [place] [address] Dr Hui [address] [place] [address] Cardiology 12/08/21 Umang Corado NP [address] [place] [address] [place] [address] Specialist Cardiology 02/23/22 Chanda Soria NP [address] [place] [address] Breann Hui [address] [place] [address] Cardiology 08/11/22 Loreto Albert MD [address] [place] [address] Internal Medicine 04/13/23 documented as of this encounter
--- OUTSIDE RECORDS SUMMARY | 2024-09-10 15:34 | XMS_ITS | Encounter Summary ---
Author Organization [facility] Address [address] [place] [address] Care Team Providers Care Photocopy Operator Name Role Phone Phil Rodriguez MD Primary Care Provider Unavail able Tony Rodriguez MD Primary Care Provider Unavail able Phil Rodriguez MD Primary Care Provider Unavail able Ashley Rosado APRN Primary Care Provider Unav ailable Triston Bailey MD Unavailable Remedios Warren Unavailable Unavailable Umang Corado HOUSEMAID Unavailable Johana Lizarraga MD Primary Care Provider Chanda Soria HOUSEMAID Unavailable Susie Starr DO Primary Care Provider [phone] Johana Lizarraga MD Primary Care Provider Susie Starr DO Primary Care Provider [phone] Phil Rodriguez MD Primary Care Provider Unavail able Susie Starr DO Primary Care Provider [phone] Loreto Albert MD Unavailable [phone] Lizbeth Schilling APRN Primary Care Provider Susie Starr DO Primary Care Provider [phone] Encounter Details Date Type Department Care Team Description 12/25/2009 Eye Body Mechanic Report Medical Records [address] [place] [address] Suzi Coello Social History Tobacco Use Types Packs/Day Years [...] 04/13/2023 How often do you attend [facility] or methodist services? More than 4 [...] on filedocumented in this encounter Care Teams Photocopy Operator Relationship Specialty Start Date End Date Phil Rodriguez MD PCP - General 03/07/05 12/04/14 Tony Rodriguez MD PCP - General Internal Medicine 12/05/14 12/14/14 Phil Rodriguez MD PCP - General Internal Medicine 12/15/14 09/19/19 Ashley Rosado APRN PCP - General Internal Medicine 09/20/19 06/27/22 Johana Lizarraga MD [address] [place] [address] PCP - General Internal Medicine 06/28/22 11/30/22 [facility] [address] [place] [address] PCP - General Internal Medicine 12/01/22 12/01/22 Johana Lizarraga MD [place] [address] PCP - General Internal Medicine 12/02/22 12/29/22 [facility] [address] [place] [address] PCP - General Internal Medicine 12/30/22 12/30/22 Phil Rodriguez MD PCP - General Internal Medicine 01/04/23 01/10/23 [facility], [address] [place] [address] PCP - General Internal Medicine 01/11/23 02/01/24 Lizbeth Schilling, MELISSA [address] [place] [address] PCP - General Internal Medicine 02/02/24 02/11/24 [facility], [address] [place] [address] PCP - General Internal Medicine 02/12/24 Triston Bailey MD [address] [place] [address] [place] [address] Supervisor Joiners Cardiovascular Disease 06/10/20 Remedios Warren PA [address] [place] [address] Cardiology 12/08/21 Umang Corado NP [address] [place] [address] [place] [address] Specialist Cardiology 02/23/22 Chanda Soria NP [address] [place] [address] [address] Cardiology 08/11/22 Loreto Albert MD [address] [place] [address] Internal Medicine 04/13/23 documented as of this encounter
--- OUTSIDE RECORDS SUMMARY | 2024-09-10 15:34 | XMS_ITS | Encounter Summary ---
Author Organization [facility] Address [address] [place] [address] Care Team Providers Care Press Operator Instant Print Shop Name Role Phone Phil Rodriguez MD Primary Care Provider Unavail able Ashley Rosado APRN Primary Care Provider Unav ailable Triston Bailey MD Unavailable Remedios Warren PA Unavailable Unavailable Umang Corado SUPERVISOR ROVING DEPARTMENT Unavailable Johana Lizarraga MD Primary Care Provider Chanda Soria SUPERVISOR ROVING DEPARTMENT Unavailable Susie Starr DO Primary Care Provider Johana Lizarraga MD Primary Care Provider Susie Starr DO Primary Care Provider Phil Rodriguez MD Primary Care Provider Unavail able Susie Starr DO Primary Care Provider [phone] Loreto Albert MD Unavailable [phone] Lizbeth Schilling APRN Primary Care Provider [phone] Susie Starr DO Primary Care Provider [phone] Encounter Details Date Type Department Care Team Description 01/12/2015 Transportation Technician Report Medical Records [address] [place] [address] Alok Keith MD Social History Tobacco Use [...] week 04/13/2023 How often do you attend [facility] or jain services? More than 4 times per year 04/13/2023 Do you belong to any clubs o r organizations such as bahai groups, unions, fraternal or athletic groups, or [...] on filedocumented in this encounter Care Teams Press Operator Instant Print Shop Relationship Specialty Start Date End Date Phil Rodriguez MD PCP - General Internal Medicine 12/15/14 09/19/19 Ashley Rosado APRN PCP - General Internal Medicine 09/20/19 06/27/22 Johana Lizarraga MD [address] [place] [address] Dr [place], [place] [address] PCP - General Internal Medicine 06/28/22 11/30/22 Susie Starr, DO [address] [place] [address] PCP - General Internal Medicine 12/01/22 12/01/22 Johana Lizarraga MD [address] [place] [address] [place] [address] PCP - General Internal Medicine 12/02/22 12/29/22 [facility] [address] [place] [address] PCP - General Internal Medicine 12/30/22 12/30/22 Phil Rodriguez MD PCP - General Internal Medicine 01/04/23 01/10/[address] [address] PCP - General Internal Medicine 01/11/23 02/01/24 Lizbeth Schilling, STEAM AND GAS TURBINE ASSEMBLER [address] [place] [address] PCP - General Internal Medicine 02/02/24 02/11/[address] [address] PCP - General Internal Medicine 02/12/24 Triston Bailey MD [address] [place] [address] [place] [address] Neuroradiologist Cardiovascular Disease 06/10/20 Remedios Warren PA [address] [place] [address] Cardiology 12/08/21 Umang Corado NP [address] [place] [address] [place] [address] Specialist Cardiology 02/23/22 Chanda Soria NP [address] [place] [address] [place] [address] Cardiology 08/11/22 Loreto Albert MD [address] [place] [address] Internal Medicine 04/13/23 documented as of this encounter
--- OUTSIDE RECORDS SUMMARY | 2024-09-10 15:34 | XMS_ITS | Encounter Summary ---
Author Organization [facility] Address [address] [place] [address] Care Team Providers Care Copyright Clerk Name Role Phone Ashley Rosado APRN Primary Care Provider Unav Triston Jaffe MD Unavailable Remedios Warren Unavailable Unavailable Umang Corado GIS ANALYST DEVELOPER Unavailable [phone] Johana Lizarraga MD Primary Care Provider Chanda Soria NP Unavailable Susie Starr DO Primary Care Provider Johana Lizarraga MD Primary Care Provider Susie Starr DO Primary Care Provider Phil Rodriguez MD Primary Care Provider Unavail able Susie Starr DO Primary Care Provider Loreto Albert MD Unavailable [phone] Lizbeth Schilling APRN Primary Care Provider Susie Starr DO Primary Care Provider [phone] Encounter Details Date Type Department Care Team Description 04/07/2020 Orders Only Adult Medicine A - [address] [address] Lizbeth Schilling APRN [address] [place] [address] [id number] Type 2 diabetes mellitus with stage 2 chronic kidney disease, without long-term current use of insulin (HCC) (Primary Dx) Social History Tobacco Use [...] week 04/13/2023 How often do you attend [facility] or judaism services? More than 4 times per year 04/13/2023 Do you belong to any clubs o r organizations such as restoration groups, unions, fraternal or athletic groups, or [...] as of this encounter Visit Diagnoses Diagnosis Type 2 diabetes mellitus with stage 2 chronic kidney disease, without long-term current use of insulin (HCC)- Primary documented in this encounter Care Teams Copyright Clerk Relationship Specialty Start Date End Date Ashley Rosado APRN PCP - General Internal Medicine 09/20/19 06/27/22 Johana Lizarraga MD [address] [place] [address] [place] [address] PCP - General Internal Medicine 06/28/22 11/30/22 [facility], [address] [place] [address] PCP - General Internal Medicine 12/01/22 12/01/22 Johana Lizarraga MD [address] [place] [address] [place] [address] PCP - General Internal Medicine 12/02/22 12/29/22 [facility], [address] [place] [address] PCP - General Internal Medicine 12/30/22 12/30/22 Phil Rodriguez MD [address] [place] [address] PCP - General Internal Medicine 01/04/23 01/10/23 [facility], [address] [place] [address] PCP - General Internal Medicine 01/11/23 02/01/24 Lizbeth Schilling APRN [address] [place] [address] PCP - General Internal Medicine 02/02/24 02/11/24 [facility], [address] [place] [address] PCP - General Internal Medicine 02/12/24 Triston Bailey MD [address] [place] [address] [place] [address] Broiler Chef Or Cook Cardiovascular Disease 06/10/20 Remedios Warren PA [address] [place] [address] Dr Hui [address] [place] [address] Cardiology 12/08/21 Umang Corado NP [address] [place] [address] Dr Hui [address] [place] [address] Specialist Cardiology 02/23/22 Chanda Soria NP [address] [place] [address] Breann Hui [address] [place] [address] Cardiology 08/11/22 Loreto Albert MD [address] [place] [address] Internal Medicine 04/13/23 documented as of this encounter
--- OUTSIDE RECORDS SUMMARY | 2024-09-10 15:34 | XMS_ITS | Encounter Summary ---
Author Organization [facility] Address [address] [place] [address] Care Team Providers Care Nailer Machine Name Role Phone Ashley Rosado APRN Primary Care Provider Unav Triston Jaffe MD Unavailable Remedios Warren Unavailable Unavailable Umang Corado COW BUYER Unavailable Johana Lizarraga MD Primary Care Provider Chanda Soria NP Unavailable Susie Starr DO Primary Care Provider Johana Lizarraga MD Primary Care Provider Susie Starr DO Primary Care Provider Phil Rodriguez MD Primary Care Provider Unavail able Susie Starr DO Primary Care Provider Loreto Albert MD Unavailable [phone] Lizbeth Schilling APRN Primary Care Provider Susie Starr DO Primary Care Provider [phone] Encounter Details Date Type Department Care Team Description 05/18/2020 SCAN Medical Records [address] [place] [address] Triston Bailey MD [address] [place] [address] [place] [address] Social History Tobacco Use Types Packs/Day Years [...] week 04/13/2023 How often do you attend [facility] or pentecostalism services? More than 4 times per year 04/13/2023 Do you belong to any clubs o r organizations such as tenriism groups, unions, fraternal or athletic groups, or [...] on filedocumented in this encounter Care Teams Nailer Machine Relationship Specialty Start Date End Date Ashley Rosado APRN PCP - General Internal Medicine 09/20/19 06/27/22 Johana Lizarraga MD [address] [place] [address] [place] [address] PCP - General Internal Medicine 06/28/22 11/30/22 [facility], [address] [place] [address] PCP - General Internal Medicine 12/01/22 12/01/22 Johana Lizarraga MD [address] [place] [address] [place] [address] PCP - General Internal Medicine 12/02/22 12/29/22 [facility], [address] [place] [address] PCP - General Internal Medicine 12/30/22 12/30/22 Phil Rodriguez MD [address] [place] [address] PCP - General Internal Medicine 01/04/23 01/10/23 [facility], [address] [place] [address] PCP - General Internal Medicine 01/11/23 02/01/24 Lizbeth Schilling APRN [address] [place] [address] PCP - General Internal Medicine 02/02/24 02/11/24 [facility], [address] [place] [address] PCP - General Internal Medicine 02/12/24 Triston Bailey MD [address] [place] [address] [place] [address] Fitter Up Cardiovascular Disease 06/10/20 Remedios Warren PA [address] [place] [address] [place] [address] Cardiology 12/08/21 Umang Corado NP [address] [place] [address] Specialist Cardiology 02/23/22 Chanda Soria NP [address] [place] [address] Cardiology 08/11/22 Loreto Albert MD [address] [place] [address] Internal Medicine 04/13/23 documented as of this encounter
--- OUTSIDE RECORDS SUMMARY | 2024-09-10 15:34 | XMS_ITS | Encounter Summary ---
Author Organization [facility] Address [address] [place] [address] Care Team Providers Care Product Safety Professional Name Role Phone Phil Rodriguez MD Primary Care Provider Unavail able Tony Rodriguez MD Primary Care Provider Unavail able Phil Rodriguez MD Primary Care Provider Unavail able Ashley Rosado APRN Primary Care Provider Unav ailable Triston Bailey MD Unavailable Remedios Warren Unavailable Unavailable Umang Corado CLIENT ENGAGEMENT SPECIALIST Unavailable Johana Lizarraga MD Primary Care Provider Chanda Soria CLIENT ENGAGEMENT SPECIALIST Unavailable Susie Starr DO Primary Care Provider [phone] Johana Lizarraga MD Primary Care Provider Susie Starr DO Primary Care Provider [phone] Phil Rodriguez MD Primary Care Provider Unavail able Susie Starr DO Primary Care Provider [phone] Loreto Albert MD Unavailable [phone] Lizbeth Schilling APRN Primary Care Provider Susie Starr DO Primary Care Provider [phone] Reason for Visit * Reason Onset Date Comments Licensed Sales Assistant Feedback 06/12/2014 physical therapy Encounter Details Date Type Department Care Team Description 06/12/2014 Telephone Adult Medicine - [address] [address] Elsa Turner PA-C Licensed Sales Assistant Feedback (physical therapy) Social History Tobacco Use Types Packs/Day Years [...] often do you attend [facility] or druze services? More than 4 times per year [...] encounter Miscellaneous Notes * Telephone Encounter - Rosana Banuelos - 06/12/2014 3:00 PM EST Physical Therapy letter mailed to patient.Patient instructed to call back with specialist information. documented in this encounter Plan of Treatment Not on file documented as of this encounter Visit Diagnoses Not on filedocumented in this encounter Care Teams Product Safety Professional Relationship Specialty Start Date End Date Phil Rodriguez MD PCP - General 03/07/05 12/04/14 Tony Rodriguez MD PCP - General Internal Medicine 12/05/14 12/14/14 Phil Rodriguez MD PCP - General Internal Medicine 12/15/14 09/19/19 Ashley Rosado APRN PCP - General Internal Medicine 09/20/19 06/27/22 Johana Lizarraga MD [address] [place] [address] [place] [address] PCP - General Internal Medicine 06/28/22 11/30/22 [facility], [address] [place] [address] PCP - General Internal Medicine 12/01/22 12/01/22 Johana Lizarraga MD [address] [place] [address] [place] [address] PCP - General Internal Medicine 12/02/22 12/29/22 [facility], [address] [place] [address] PCP - General Internal Medicine 12/30/22 12/30/22 Phil Rodriguez MD PCP - General Internal Medicine 01/04/23 01/10/23 [facility], [address] [place] [address] PCP - General Internal Medicine 01/11/23 02/01/24 Lizbeth Schilling APRN [address] [place] [address] PCP - General Internal Medicine 02/02/24 02/11/24 ZacharyLisa ramirezmana, DO [address] [place] [address] PCP - General Internal Medicine 02/12/24 Triston Bailey MD [address] [place] [address] [place] [address] Senior Health Consultant Cardiovascular Disease 06/10/20 Remedios Warren PA [address] [place] [address] [place] [address] Cardiology 12/08/21 Umang Corado NP [address] [place] [address] [place] [address] Specialist Cardiology 02/23/22 Chanda Soria NP [address] [place] [address] [address] Cardiology 08/11/22 Loreto Albert MD [address] [place] [address] Internal Medicine 04/13/23 documented as of this encounter
--- OUTSIDE RECORDS SUMMARY | 2024-09-10 15:34 | XMS_ITS | Encounter Summary ---
Author Organization [facility] Address [address] [place] [address] Care Team Providers Care Auto Leasing Manager Name Role Phone Phil Rodriguez MD Primary Care Provider Unavail able Ashley Rosado APRN Primary Care Provider Unav ailable Triston Bailey MD Unavailable [phone] Remedios Warren PA Unavailable Unavailable Umang Corado NP Unavailable Johana Lizarraga MD Primary Care Provider Chanda Soria NUCLEAR MEDICINE TECH Unavailable Susie Starr DO Primary Care Provider Johana Lizarraga MD Primary Care Provider Susie Starr DO Primary Care Provider Phil Rodriguez MD Primary Care Provider Unavail able Susie Starr DO Primary Care Provider [phone] Loreto Albert MD Unavailable [phone] Lizbeth Schilling APRN Primary Care Provider [phone] Susie Starr DO Primary Care Provider [phone] Encounter Details Date Type Department Care Team Description 08/04/2017 Orders Only Radiology - [address] [address] Phil Rodriguez MD Social History Tobacco Use [...] [facility] or mormon services? More than 4 times [...] on filedocumented in this encounter Care Teams Auto Leasing Manager Relationship Specialty Start Date End Date Phil Rodriguez MD PCP - General Internal Medicine 12/15/14 09/19/19 Ashley Rosado APRN PCP - General Internal Medicine 09/20/19 06/27/22 Johana Lizarraga MD [address] [place] [address] [place] [address] PCP - General Internal Medicine 06/28/22 11/30/22 Jaloudi, Susie, DO [address] [place] [address] PCP - General Internal Medicine 12/01/22 12/01/22 Johana Lizarraga MD [address] [place] [address] [place] [address] PCP - General Internal Medicine 12/02/22 12/29/22 [facility] [address] [place] [address] PCP - General Internal Medicine 12/30/22 12/30/22 Phil Rodriguez MD PCP - General Internal Medicine 01/04/23 01/10/23 [facility] [address] [place] [address] PCP - General Internal Medicine 01/11/23 02/01/24 Lizbeth Schilling, COMMODITY SPECIALIST [address] [place] [address] PCP - General Internal Medicine 02/02/24 02/11/24 [facility] [address] [place] [address] PCP - General Internal Medicine 02/12/24 Triston Bailey MD [address] [place] [address] [place] [address] Press And Blow Machine Tender Cardiovascular Disease 06/10/20 Remedios Warren PA [address] [place] [address] [place] [address] Cardiology 12/08/21 Umang Corado NP [address] [place] [address] [place] [address] Specialist Cardiology 02/23/22 Chanda Soria NP [address] [address] Cardiology 08/11/22 Loreto Albert MD [address] [place] [address] Internal Medicine 04/13/23 documented as of this encounter
--- OUTSIDE RECORDS SUMMARY | 2024-09-10 15:34 | XMS_ITS | Encounter Summary ---
Author Organization [facility] Address [address] [place] [address] Care Team Providers Care Lead Blender Name Role Phone Phil Rodriguez MD Primary Care Provider Unavail able Ashley Rosado APRN Primary Care Provider Unav ailable Triston Bailey MD Unavailable Remedios Warren PA Unavailable Unavailable Umang Corado BELLY ROLLER Unavailable [phone] Johana Lizarraga MD Primary Care Provider Chanda Soria BELLY ROLLER Unavailable Susie Starr DO Primary Care Provider Johana Lizarraga MD Primary Care Provider Susie Starr DO Primary Care Provider Phil Rodriguez MD Primary Care Provider Unavail able Susie Starr DO Primary Care Provider [phone] Loreto Albert MD Unavailable [phone] Lizbeth Schilling APRN Primary Care Provider [phone] Susie Starr DO Primary Care Provider [phone] Encounter Details Date Type Department Care Team Description 03/05/2015 Hospital Medical Records [address] [place] [address] Atul Barksdale MD Social History Tobacco Use [...] do you attend [facility] or jehovah's witness services? More than 4 times per year 04/13/2023 Do you belong to any clubs o r organizations such as buddhist groups, unions, fraternal or athletic groups, or [...] on filedocumented in this encounter Care Teams Lead Blender Relationship Specialty Start Date End Date Phil Rodriguez MD PCP - General Internal Medicine 12/15/14 09/19/19 Ashley Rosado APRN PCP - General Internal Medicine 09/20/19 06/27/22 Johana Lizarraga MD [address] [place] [address] [place] [address] PCP - General Internal Medicine 06/28/22 11/30/22 Susie Starr, [address] [place] [address] PCP - General Internal Medicine 12/01/22 12/01/22 Johana Lizarraga MD [address] [place] [address] [place] [address] PCP - General Internal Medicine 12/02/22 12/29/22 [facility] [address] [place] [address] PCP - General Internal Medicine 12/30/22 12/30/22 Phil Rodriguez MD PCP - General Internal Medicine 01/04/23 01/10/[address] [address] PCP - General Internal Medicine 01/11/23 02/01/24 Lizbeth Schilling, MANAGER ARCHITECTURE [address] [place] [address] PCP - General Internal Medicine 02/02/24 02/11/[address] [address] PCP - General Internal Medicine 02/12/24 Triston Bailey MD [address] [place] [address] [place] [address] Powder Mixer Cardiovascular Disease 06/10/20 Remedios Warren PA [address] [place] [address] [place] [address] Cardiology 12/08/21 Umang Corado NP [address] [place] [address] [place] [address] Specialist Cardiology 02/23/22 Chanda Soria NP [address] [place] [address] [place] [address] Cardiology 08/11/22 Loreto Albert MD [address] [place] [address] Internal Medicine 04/13/23 documented as of this encounter
--- OUTSIDE RECORDS SUMMARY | 2024-09-10 15:34 | XMS_ITS | Encounter Summary ---
Author Organization [facility] Address [address] [place] [address] Care Team Providers Care Religious Activities Director Name Role Phone Phil Rodriguez MD Primary Care Provider Unavail able Tony Rodriguez MD Primary Care Provider Unavail able Phil Rodriguez MD Primary Care Provider Unavail able Ashley Rosado APRN Primary Care Provider Unav ailable Triston Bailey MD Unavailable [phone] Remedios Warren Unavailable Unavailable Umang Corado GUYLINE OPERATOR Unavailable Johana Lizarraga MD Primary Care Provider Chanda Soria NP Unavailable Susie Starr DO Primary Care Provider [phone] Johana Lizarraga MD Primary Care Provider Susie Starr DO Primary Care Provider [phone] Phil Rodriguez MD Primary Care Provider Unavail able Susie Starr DO Primary Care Provider [phone] Loreto Albert MD Unavailable [phone] Lizbeth Schilling APRN Primary Care Provider Susie Starr DO Primary Care Provider [phone] Encounter Details Date Type Department Care Team Description 11/12/2014 Records Management Director Report Medical Records [address] [place] [address] Triston Allred MD, MD Social History Tobacco [...] often do you attend [facility] or spiritism services? More than 4 [...] on filedocumented in this encounter Care Teams Religious Activities Director Relationship Specialty Start Date End Date Phil Rodriguez MD PCP - General 03/07/05 12/04/14 Tony Rodriguez MD PCP - General Internal Medicine 12/05/14 12/14/14 Phil Rodriguez MD PCP - General Internal Medicine 12/15/14 09/19/19 Ashley Rosado APRN PCP - General Internal Medicine 09/20/19 06/27/22 Johana Lizarraga MD [address] [place] [address] [place] [address] PCP - General Internal Medicine 06/28/22 11/30/22 [facility], [address] [facility] [place] [address] PCP - General Internal Medicine 12/01/22 12/01/22 Johana Lizarraga MD [address] [place] [address] [place] [address] PCP - General Internal Medicine 12/02/22 12/29/22 [facility] [address] [facility] [place] [address] PCP - General Internal Medicine 12/30/22 12/30/22 Phil Rodriguez MD PCP - General Internal Medicine 01/04/23 01/10/23 [facility], [address] [facility] [place] [address] PCP - General Internal Medicine 01/11/23 02/01/24 Lizbeth Schilling APRN [address] [place] [address] PCP - General Internal Medicine 02/02/24 02/11/24 [facility], [address] [facility] [place] [address] PCP - General Internal Medicine 02/12/24 Triston Bailey MD [address] [place] [address] [place] [address] Machining Associate Cardiovascular Disease 06/10/20 Remedios Warren PA [address] [facility] [place] [address] Cardiology 12/08/21 Umang Corado NP [address] [place] [address] [place] [address] Specialist Cardiology 02/23/22 Chanda Soria NP [address] [place] [address] [address] Hui [address] [place] [address] Cardiology 08/11/22 Loreto Alebrt MD [address] [place] [address] Internal Medicine 04/13/23 documented as of this encounter
--- OUTSIDE RECORDS SUMMARY | 2024-09-10 15:34 | XMS_ITS | Encounter Summary ---
Author Organization [facility] Address [address] [place] [address] Care Team Providers Care Tacker Off Name Role Phone Phil Rodriguez MD Primary Care Provider Unavail able Ashley Rosado APRN Primary Care Provider Unav ailable Triston Bailey MD Unavailable Remedios Warren PA Unavailable Unavailable Umang Corado COOK LARDER Unavailable Johana Lizarraga MD Primary Care Provider Chanda Soria COOK LARDER Unavailable Susie Starr DO Primary Care Provider Johana Lizarraga MD Primary Care Provider Susie Starr DO Primary Care Provider Phil Rodriguez MD Primary Care Provider Unavail able Susie Starr DO Primary Care Provider [phone] Loreto Albert MD Unavailable [phone] Lizbeth Schilling APRN Primary Care Provider [phone] Susie Starr DO Primary Care Provider [phone] Encounter Details Date Type Department Care Team Description 04/20/2017 Tin Cutter Report Medical Records [address] [place] [address] Vince Page II Social History Tobacco Use [...] attend [facility] or church services? More than 4 times per year 04/13/2023 Do you belong to any clubs o r organizations such as faith groups, unions, fraternal or athletic groups, or [...] on filedocumented in this encounter Care Teams Tacker Off Relationship Specialty Start Date End Date Phil Rodriguez MD PCP - General Internal Medicine 12/15/14 09/19/19 Ashley Rosado APRN PCP - General Internal Medicine 09/20/19 06/27/22 Johana Lizarraga MD [address] [place] [address] Dr [place], [place] [address] PCP - General Internal Medicine 06/28/22 11/30/22 Susie Starr, DO [address] [place] [address] PCP - General Internal Medicine 12/01/22 12/01/22 Johana Lizarraga MD [address] [place] [address] [place] [address] PCP - General Internal Medicine 12/02/22 12/29/22 [facility] [address] [place] [address] PCP - General Internal Medicine 12/30/22 12/30/22 Phil Rodriguez MD PCP - General Internal Medicine 01/04/23 01/10/[address] [address] PCP - General Internal Medicine 01/11/23 02/01/24 Lizbeth Schilling, LEGAL SECRETARY [address] [place] [address] PCP - General Internal Medicine 02/02/24 02/11/[address] [address] PCP - General Internal Medicine 02/12/24 Triston Bailey MD [address] [place] [address] [place] [address] Summer Analyst Cardiovascular Disease 06/10/20 Remedios Warren PA [address] [facility] [place] [address] Cardiology 12/08/21 Umang Corado NP [address] [place] [address] [place] [address] Specialist Cardiology 02/23/22 Chanda Soria NP [address] [place] [address] [place] [address] Cardiology 08/11/22 Loreto Albert MD [address] [place] [address] Internal Medicine 04/13/23 documented as of this encounter
--- OUTSIDE RECORDS SUMMARY | 2024-09-10 15:34 | XMS_ITS | Encounter Summary ---
Author Organization [facility] Address [address] [place] [address] Care Team Providers Care Obiee Obia Solution Architect Name Role Phone Triston Bailey MD Unavailable [phone] Remedios Warren Unavailable Unavailable Umang Corado DETECTIVE Unavailable Chanda Soria NP Unavailable [phone] Susie Starr DO Primary Care Provider Loreto Albert MD Unavailable [phone] Lizbeth Schilling APRN Primary Care Provider [phone] Susie Starr DO Primary Care Provider [phone] Encounter Details Date Type Department Care Team Description 01/30/2024 Antisqueak Worker Report Medical Records [address] [place] [address] Long Metz MD Social History Tobacco Use [...] week 04/13/2023 How often do you attend [facility] or faith services? More than 4 times [...] on filedocumented in this encounter Care Teams Obiee Obia Solution Architect Relationship Specialty Start Date End Date Susie Starr, [address] [place] [address] PCP - General Internal Medicine 01/11/23 02/01/24 Lizbeth Schilling APRN [address] [place] [address] PCP - General Internal Medicine 02/02/24 02/11/24 Susie Starr DO [address] [place] [address] PCP - General Internal Medicine 02/12/24 Triston Bailey MD [address] [place] [address] [place] [address] Musical Therapist Cardiovascular Disease 06/10/20 Remedios Warren PA [address] [place] [address] Dr Hui [address] [place] [address] Cardiology 12/08/21 Umang Corado NP [address] [place] [address] Dr Hui [address] [place] [address] Specialist Cardiology 02/23/22 Chanda Soria NP [address] [place] [address] [address] Cardiology 08/11/22 Loreto Albert MD [address] [place] [address] Internal Medicine 04/13/23 documented as of this encounter
--- OUTSIDE RECORDS SUMMARY | 2024-09-10 15:34 | XMS_ITS | Encounter Summary ---
Author Organization [facility] Address [address] [place] [address] Care Team Providers Care Health And Safety Technician Name Role Phone Phil Rodriguez MD Primary Care Provider Unavail able Tony Rodriguez MD Primary Care Provider Unavail able Phil Rodriguez MD Primary Care Provider Unavail able Ashley Rosado APRN Primary Care Provider Unav ailable Triston Bailey MD Unavailable Remedios Warren Unavailable Unavailable Umang Corado TERRAZZO MECHANIC HELPER Unavailable Johana Lizarraga MD Primary Care Provider Chanda Soria TERRAZZO MECHANIC HELPER Unavailable Susie Starr DO Primary Care Provider [phone] Johana Lizarraga MD Primary Care Provider Susie Starr DO Primary Care Provider [phone] Phil Rodriguez MD Primary Care Provider Unavail able Susie Starr DO Primary Care Provider [phone] Loreto Albert MD Unavailable [phone] Lizbeth Schilling APRN Primary Care Provider Susie Starr DO Primary Care Provider [phone] Encounter Details Date Type Department Care Team Description 06/05/2014 Eye Housekeeping Director Report Medical Records [address] [place] [address] Atul Rivera Social History Tobacco Use Types Packs/Day Years [...] you attend [facility] or sikhism services? More than 4 times per year [...] on filedocumented in this encounter Care Teams Health And Safety Technician Relationship Specialty Start Date End Date Phil Rodriguez MD PCP - General 03/07/05 12/04/14 Tony Rodriguez MD PCP - General Internal Medicine 12/05/14 12/14/14 Phil Rodriguez MD PCP - General Internal Medicine 12/15/14 09/19/19 Ashley Rosado APRN PCP - General Internal Medicine 09/20/19 06/27/22 Johana Lizarraga MD [address] [place] [address] [place] [address] PCP - General Internal Medicine 06/28/22 11/30/22 [facility], [address] [place] [address] PCP - General Internal Medicine 12/01/22 12/01/22 Johana Lizarraga MD [address] [place] [address] [place] [address] PCP - General Internal Medicine 12/02/22 12/29/22 [facility] [address] [place] [address] PCP - General Internal Medicine 12/30/22 12/30/22 Phil Rodriguez MD PCP - General Internal Medicine 01/04/23 01/10/23 [facility], [address] [place] [address] PCP - General Internal Medicine 01/11/23 02/01/24 Lizbeth Schilling, COFFEE SUPERVISOR [address] [place] [address] PCP - General Internal Medicine 02/02/24 02/11/24 [facility], [address] [place] [address] PCP - General Internal Medicine 02/12/24 Triston Bailey MD [address] [place] [address] [place] [address] Concrete Bucket Unloader Cardiovascular Disease 06/10/20 Remedios Warren PA [address] [place] [address] [place] [address] Cardiology 12/08/21 Umang Corado NP [address] [place] [address] Dr Ez [address] [place] [address] Specialist Cardiology 02/23/22 Chanda Soria NP [address] [place] [address] Drive [facility] [address] [place] [address] Cardiology 08/11/22 Loreto Albert MD [address] [place] [address] Internal Medicine 04/13/23 documented as of this encounter
--- OUTSIDE RECORDS SUMMARY | 2024-09-10 15:34 | XMS_ITS | Clinical Summary ---
Author Organization [facility] Address [address] [place] [address] Phone Care Team Providers Care Cytopathologist Name Role Phone Fernanda Robins MD Primary Care Provider [phone] Allergies Active Allergy Reactions Criticality Noted Date Comments Naproxen Nausea And Vomiting 06/01/2016 Penicillins Rash 04/14/2005 Medications fluticasone HFA (FLOVENT HFA) 220 mcg/actuation inhaler Inhale 1 Puff into the lungs 2 times daily. 023 Active FREESTYLE LANCETS MISC USE TO TEST BLOOD SUGAR TWICE DAILY 019 Active incontinence pad, liner, disp pad Disposable Incontinence liners Use up to 8 times daily for Incontinence Indefinite Use Dx: R32 ,E11.49, E11.29 , N18.30, G62.9, R26.81 024 Active ipratropium-alb uteroL (DUONEB) 0.5-2.5 mg/3 mL nebulizer solution USE 3 ML VIA NEBULIZER FOUR TIMES DAILY NEEDED FOR COUGH OR WHEEZING OR SHORTNESS OF BREATH 023 Active isosorbide mononitrate (IMDUR) 30 mg 24 hr tablet TAKE 2 TABLETS BY MOUTH DAILY 024 Active denosumab (Prolia) 60 mg/mL syringe syringe INJECT 1 SYRINGE (60MG) UNDER THE SKIN EVERY 6 MONTHS 024 Active alirocumab (Praluent Pen) 75 mg/mL pen injector INJECT 75 MG INTO THE SKIN EVERY 14 DAYS 024 Active amLODIPine (NORVASC) 2.5 mg tablet TAKE 1 TABLET BY MOUTH DAILY 90 tablet 1 Active albuterol HFA (Ventolin HFA) 90 mcg/actuation inhalerIndicati ons:Mild intermittent asthma without complication Inhale 2 puffs by mouth every 6 (six) hours if needed for wheezing. 1 each 024 2024 Active ezetimibe (ZETIA) 10 mg tablet TAKE 1 TABLET BY MOUTH DAILY 90 tablet 3 024 Active hydroCHLOROthia zide 12.5 mg tablet TAKE 1 TABLET BY MOUTH DAILY 90 tablet 1 024 Active lisinopriL (PRINIVIL,ZESTR IL) 10 mg tablet Take 1 tablet (10 mg total) by mouth 1 (one) time each day. 90 tablet 1 Active blood sugar diagnostic (FreeStyle Lite Strips) test strip USE DIRECTED TO TEST BLOOD SUGAR TWICE DAILY BEFORE A MEAL 200 strip Active cetirizine (ZyrTEC) 10 mg tablet TAKE 1 TABLET BY MOUTH DAILY NEEDED FOR ALLERGIES 90 tablet 1 025 Active calcium carbonate 1,500 mg (600 mg elemental calcium) tablet TAKE 1 TABLET BY MOUTH TWICE DAILY WITH MEALS 180 tablet 1 Active aspirin 81 mg chewable tablet CHEW AND SWALLOW 1 TABLET BY MOUTH EVERY DAY 90 tablet 3 025 Active Jardiance 25 mg tablet Take 1 tablet (25 mg total) by mouth 1 (one) time each day. Active blood-glucose meter kit Use daily or as directed for monitoring of diabetes 1 each 025 2025 Active freestyle 28 gauge lancets Check blood sugar 1 times a day or as directed 100 each 11 025 2025 Active insulin glargine (Lantus Solostar U-100 Insulin) 100 unit/mL (3 mL) injection pen Inject 10 units sc at bedtime, go up by 4 units every 4 days if BS readings above 130. Max dose 40 units 15 mL 11 Active terconazole (TERAZOL 7) 0.4 % vaginal cream Apply small amount to vulva twice daily x 7 days. 45 g Active meclizine (ANTIVERT) 12.5 mg tabletIndicatio ns:Dizziness Take 1 tablet (12.5 mg total) by mouth 3 (three) times a day if needed for dizziness. 30 tablet 025 2024 Active LORazepam (ATIVAN) 2 mg tablet Take 1 tablet (2 mg total) by mouth 1 (one) time each day if needed for anxiety for up to 28 days. Ok to fill 05/29/24 Max Daily Amount: 2 mg 28 tablet 025 2024 Active pen needle, diabetic 32 gauge x 1/4 needle Use daily with insulin 100 each Active camphor-methyl salicyl-menthoL (Salonpas) 3.1 %-10 %-6 % (large) adhesive patch,medicated Apply 1 patch topically 1 (one) time each day. 90 patch 1 025 2024 Active lidocaine (LIDODERM) 5 % patchIndication s:Mass in chest,Right carpal tunnel syndrome Apply 1 patch topically 1 (one) time each day. Apply to painful area 12 hours per day, remove for 12 hours. 90 each 3 025 2025 Active fluticasone-bruce meterol (Wixela Inhub) 250-50 mcg/dose diskus inhalerIndicati ons:Moderate persistent asthma, unspecified whether complicated Inhale 1 puff by mouth 2 (two) times a day. Rinse mouth with water after use to reduce aftertaste and incidence of candidiasis. Do not swallow. 1 each 024 2024 Discontinued(T herapy completed) meclizine (ANTIVERT) 12.5 mg tabletIndicatio ns:Dizziness Take 1 tablet (12.5 mg total) by mouth 3 (three) times a day if needed for dizziness. 30 tablet 024 2024 Discontinued(R eorder) pen needle, diabetic (BD Ultra-Fine Short Pen Needle) 31 gauge x 5/16 needle Use to inject 1 times daily as directed 100 each 11 025 2024 Discontinued LORazepam (ATIVAN) 2 mg tablet Take 1 tablet (2 mg total) by mouth 1 (one) time each day if needed for anxiety for up to 28 days. Ok to fill 05/29/24 Max Daily Amount: 2 mg 28 tablet 025 2024 Discontinued(R eorder) camphor-methyl salicyl-menthoL (Salonpas) 3.1 %-10 %-6 % (large) adhesive patch,medicated Apply 1 patch topically 1 (one) time each day. 90 patch 1 025 2024 Discontinued(R eorder) Active Problems Problem Noted Date Diagnosed Date MR (mitral regurgitation) 07/12/2023 Assessment & Plan (08/15/2024 1:06 PM EDT): Mild by previous echocardiograms, but seemed improved on 2023 echocardiogram. Continue to monitor by echocardiogram as per ACC standards and as clinically indicated. Headache 07/10/2023 Chronic pain of both knees 01/11/2023 Primary osteoarthritis of both knees 01/11/2023 Urinary incontinence 01/11/2023 Kidney lesion, flandreau, right 05/20/2022 Chronic rhinitis 06/10/2021 CAD (coronary artery disease) 03/23/2021 Overview (08/15/2024): July 2020 - echocardiogram showed normal left ventricular size and wall thickness. Normal regional wall motion. LVEF 60 to 65%. Moderately abnormal left ventricular diastolic function. RV is normal in size and systolic function. Mild mitral regurgitation. November 11, 2021 - underwent left heart catheterization showing normal left main, 70% stenosis in the mid LAD with a positive IFR, normal left circumflex, and 40% stenosis in the mid RCA status post Drug-eluting stent was to the mid LAD artery stenosis January 2022 - Exercise stress test with the patient exercising for 7 minutes and achieving a MPHR of 88% with no chest pain and no abnormal EKG changes suggestive of ischemia June 23, 2022 - Cardiac PET stress test 06/23/22 showing no areas of ischemia or infarction with dense coronary artery calcification noted in all 3 major coronary arteries and normal LV function August 2023 - echocardiogram showed LVEF 60 to 65% with normal LV diastolic function, normal RV size and function with no significant valvular disease Assessment & Plan (08/15/2024 1:06 PM EDT): Catheterization from 2021 showed significant LAD stenosis status post VICK. Last Nuclear stress test from 2022 showed no ischemia or infarct. Echocardiogram from June 2023 showed preserved LV systolic function LVEF 60-65%. Its not clear if her symptoms are anginal or if related to her asthma. Given her risk factors, I think it prudent to update a stress test. Continue with aspirin, alirocumab, amlodipine, ezetimibe, HCTZ, isosorbide, empagliflozin and lisinopril. We discussed risk reduction through lifestyle choices including healthy diet, routine exercise and weight management. Orders: ECG 12 lead Exercise nuclear stress test with myocardial perfusion; Future Polyneuropathy 07/02/2020 Osteoporosis 02/13/2019 Carotid stenosis 01/16/2018 Overview (08/15/2024): February 2020 - carotid ultrasound 50 - 69% bilaterally Assessment & Plan (08/15/2024 1:06 PM EDT): No neurologic symptoms. Continue with aspirin, alirocumab, amlodipine, ezetimibe, HCTZ, isosorbide, empagliflozin and lisinopril. We discussed risk reduction through lifestyle choices including healthy diet, routine exercise and weight management. LAURA positive 04/26/2017 Iron deficiency anemia 01/09/2017 Overview (01/18/2024): 2017: CN, EGD, Pillcam all wnl. Thyroid nodule 01/09/2017 Overview (01/18/2024): Benign follicular cells DM (diabetes mellitus), type 2 with neurological complications (CMS/HCC V24, CMS/HCC V28) 10/07/2016 Elevated sed rate 10/23/2015 Lung nodules 10/23/2015 CKD (chronic kidney disease) stage 3, GFR 30-59 ml/min (CMS/HCC V24, CMS/HCC V28) 03/17/2015 Overview (01/18/2024): Dr Reyes Tremor 01/20/2011 Spinal stenosis in cervical region 05/25/2010 Radiculitis, cervical 05/17/2010 Overview (01/18/2024): S/p C6-C7 anterior discectomy and fusion 07/2010 Dr Keith Radiculitis, lumbosacral 05/17/2010 Overview (01/18/2024): L4-5 spinal stenosis, has been seen by Dr Keith 2010, surgery deferred at that time Anxiety and depression 01/22/2009 HTN (hypertension) 03/06/2006 Assessment & Plan (08/15/2024 1:06 PM EDT): Well controlled. Continue with lisinopril, amlodipine, HCTZ, and isosorbide. Hyperlipidemia 04/14/2005 Assessment & Plan (08/15/2024 1:06 PM EDT): Continue with alirocumab and ezetimibe. Mild persistent asthma 04/14/2005 DM (diabetes mellitus), type 2 with renal complications (CMS/[facility] V24, [facility] V28) 04/14/2005 Encounters Date Type Department Care Team Description 09/10/2024 Telephone [facility] - [facility] [place] [phone] Fernanda Robins MD DME Request (Home Care Delivered ) 09/06/2024 Telephone Internal Medicine - [facility] [address] [place], [place] [address], [place] [phone] Fernanda Robins MD Returning call to Provider 09/06/2024 Telephone [facility] [address] [place] [phone] Umang Corado NP 09/04/2024 Telephone Internal Medicine - [facility] [address] [place], [place] [address] [phone] Jake Agudelo MA Fitting for DME 08/28/2024 Telephone Internal Medicine - [facility] [address] [place] [address] [phone] Fernanda Robins MD information needed 08/27/2024 Telephone Internal Medicine - [address] [phone] Fernanda Robins MD Prior Authorization 08/26/2024 11:22 AM EDT - 08/26/2024 11:59 PM EDT Hospital Encounter Xray - [address] [phone] Right carpal tunnel syndrome Discharge Disposition: Home or Self Care 08/26/2024 10:55 AM EDT Lab Draw Station - [address] Tired; DM (diabetes mellitus), type 2 with neurological complications ([facility] V24, CMS/[facility] V28); Encounter for long-term (current) use of high-risk medication 08/26/2024 10:15 AM EDT Office Visit Internal Medicine - [address] [phone] Deya Henriquez, KIRAN Mass in chest (Primary Dx); Right carpal tunnel syndrome; Stage 3 chronic kidney disease, unspecified whether stage 3a or 3b CKD (CMS/HCC V24, CMS/HCC V28); DM (diabetes mellitus), type 2 with neurological complications (CMS/HCC V24, CMS/[facility] V28); Tired; Anxiety and depression 08/26/2024 Telephone Internal Medicine - [address] [phone] Deya Henriquez, KIRAN 08/20/2024 Telephone Endocrinology [address] [phone] Sarah Cobian PA Medication Problem 08/15/2024 Telephone Internal Medicine - [address] [phone] Susie Starr, Dizziness 08/08/2024 8:30 AM EDT Ancillary Procedure [facility] - [address] [place] [phone] Coronary artery disease, unspecified vessel or lesion type, unspecified whether angina present, unspecified whether flandreau or transplanted heart 07/30/2024 1:45 PM EDT Office Visit Obstetrics and Gynecology - [address] [place] [place] [address] Marisela Wilkes DO Vulvar itching (Primary Dx) 07/25/2024 1:30 PM EDT Clinical Support Internal Medicine - [address] [phone] Encounter for subsequent annual wellness visit (AWV) in Medicare patient (Primary Dx) 07/25/2024 1:00 PM EDT Office Visit Internal Medicine - [address] [place] [phone] Susie Starr DO Primary hypertension (Primary Dx); Mixed hyperlipidemia; Type 2 diabetes mellitus with stage 3b chronic kidney disease, without long-term current use of insulin ([facility] V24, [facility] V28); Mild persistent asthma without complication; Anxiety and depression; Primary osteoarthritis of both knees 07/23/2024 1:40 PM EDT Office Visit [facility] [address] [place] [phone] Umang Corado NP Coronary artery disease, unspecified vessel or lesion type, unspecified whether angina present, unspecified whether flandreau or transplanted heart (Primary Dx); Primary hypertension; Nonrheumatic mitral valve regurgitation; Bilateral carotid artery stenosis; Mixed hyperlipidemia; Right bundle branch block 07/22/2024 Telephone Internal Medicine - [address] [phone] Brittany Carter MA Medicare Annual Wellness Visit Subsequent (AWV DUE 2024) 07/22/2024 Telephone Endocrinology - [address] [phone] Sarah Cobian PA medicattion 07/19/2024 1:30 PM EDT Consult Endocrinology - [address] [phone] Sarah Cobian PA Type 2 diabetes mellitus with chronic kidney disease, without long-term current use of insulin, unspecified CKD stage ([facility] V24, [facility] V28) (Primary Dx); Primary hypertension; Stage 3 chronic kidney disease, unspecified whether stage 3a or 3b CKD ([facility] V24, [facility] V28) 07/01/2024 4:45 PM EDT Office Visit Walk-In Clinic - [address] [phone] Shawn Clark, UTILITY FORESTER Mouth pain (Primary Dx) 07/01/2024 Telephone Internal Medicine - [address] [phone] Susie Starr DO Dental Pain from Last 3 Months Immunizations Name Administration Dates Next Due Hepatitis B (Xhsihun-T-Yjbzm , Recombivax HB-Adult) 19yo and older 02/24/2009 [...] negative examination. UPPER GASTROINTESTINAL ENDOSCOPY 12/12/2016 PROCEDURE: [place] UPPER GI ENDOSCOPY PERFORMED; COMMENT: Visually normal; duodenal biopsies: normal. OTHER SURGICAL HISTORY 01/04/2017 PROCEDURE: OUTSIDE ENDOSCOPY; COMMENT: [place]; [facility]; intestinal pillcam normal. Medical History Medical History Date Comments Essential hypertension, benign 03/06/2006 D X:Essential hypertension, benign Herpes zoster DX:Herpes zoster Type 2 diabetes mellitus wit h renal manifestations ([facility] V24, [facility] V28) 04/14/2005 DX:Type 2 diabetes mellitus with renal manifestations ([facility]) Tremor 01/20/2011 DX:Tremor Spinal stenosis in cervical [...] kidney disease) stage 3, GFR 30-59 ml/min ([facility] V24, [facility] V28) 03/17/2015 DX:CKD (chronic kidney disea se) stage 3, GFR 30-59 ml/min ([facility]) Unspecified asthma(493.90) 04/14/2005 DX:Un specified asthma(493.90) Anxiety and depression 01/22/2009 DX:Anxiet y and depression Diverticulitis large intestine 03/06/2006 D X:Diverticulitis large intestine; COMMENT: As of 2018; approx 4 uncomplicated attacks. DM (diabetes mellitus), type 2 with neurological complications (CMS/HCC V24, [facility] V28) 10/07/2016 DX:DM (diabetes mellitus), t ype 2 with neurological complications ([facility]) Polyneuropathy 07/02/2020 DX:Polyneuropath y DM (diabetes mellitus), type 2 with renal complications (CMS/HCC V24, CMS/HCC V28) 04/14/2005 DX:DM (diabetes mellitus), t ype 2 with renal complications (HCC) History of [...] drink = 0.6 oz pur e alcohol) Housing Instability Answer Date Recorde d Are you worried that in the next 2 months you may not have stable housing? No 07/25/2024 Food Access & Nutrition Answer Date Rec orded Do you have access to a vari ety of food including fruits and vegetables? Yes 07/25/2024 Access to Healthcare Answer Date Record ed Within the last 3 months, ho w many times did you visit the emergency department for your medical care? 1 07/25/2024 Health Literacy Answer Date Recorded How often do you need to hav e someone help you when you read instructions, pamphlets, or other written material from your doctor or pharmacy? Never 07/25/2024 Caregiver: How often do you need to have someone help you when you read instructions, pamphlets, or other written material from your doctor or pharmacy? Not on file 07/25/2024 Financial Risk Answer Date Recorded How hard is it for you to pa y for the very basics like food, housing, medical care, and air conditioning / heating? Not very hard 07/25/2024 Transportation Answer Date Recorded Has the lack of transportati on kept you from meetings, work, or from getting things needed for daily living? No Has the lack of transportati on kept you from medical appointments or from getting medications? No 07/25/2024 Social Isolation Answer Date Recorded How often do you feel lonely or isolated from th ose around you? Never 07/25/2024 Food Risk Answer Date Recorded Within the past 12 months we worried whether our food would run out before we got money to buy more. Never true 07/25/2024 Within the past 12 months th e food we bought just didn't last and we didn't have money to get more. Never true 07/25/2024 Dependent Care Answer Date Recorded Do you need help finding or paying for care for your loved ones. For example, child nutrition manager or elderly care for an older adult? No 07/25/2024 Education Answer Date Recorded Do you think completing more education or training, like finishing a GED, going to college, or learning a trade, would be helpful for you? No 07/25/2024 Employment and Income Answer Date Recor ded During the last four weeks, have you been actively looking for work? No 07/25/2024 Living Situation Answer Date Recorded What is your living situation? 0 07/25/2024 Comments No Sex and Gender Information Value Date Recorded Sex Assigned at Female 02/21/2024 10:31 AM EDT Legal Sex Female 10:45 PM EST Gender Identity Female 02/21/2024 10:31 AM EDT Sexual Orientation Not on file Obstetrics History Para Term AB IAB SAB Ectopic Multiple Livin g Live Births 5 5 5 Date Outcome GA Total Labor Labor/2nd/3rd Weight Sex Type Anes PTL Balbina A1 A5 Name Clin 1961 Term 40w0 d 2863 g (101 oz) F Vag-S pont 1964 Term 40w0 d 2722 g (96 oz) F Vag-S pont 1967 Term 40w0 d 3147 g (111 oz) F Vag-S pont 1972 Term 40w0 d 3175 g (112 oz) F Vag-S pont 1982 Term 40w0 d 3856 g (136 oz) F Vag-S pont Last Filed Vital Signs Vital Sign Reading Time Taken Comments Blood Pressure 130/70 08/26/2024 10:10 AM EDT au to Pulse 71 08/26/2024 10:10 AM EDT Temperature 36.2 ??C (97.2 ??F) 07/19/2024 1:27 PM ED T Respiratory Rate 19 03/12/2024 1:15 PM EST Oxygen Saturation 97% 07/23/2024 1:32 PM EDT Inhaled Oxygen Concentration - - Weight 69.9 kg (154 lb 1.6 oz) 08/26/2024 10:10 AM EDT Height 160 cm (5' 3 ) 08/26/2024 10:10 AM EDT Body Mass Index 27.3 08/26/2024 10:10 AM EDT Plan of Treatment Upcoming Encounters Date Type Department Care Team (Late st Contact Info) Description 09/11/2024 1:30 PM EDT Consult Orthopedic Surgery [address] [phone] Mao Mitchell MD [address] [place] [phone] 09/12/2024 11:30 AM EDT Office Visit Pulmonolgy - [address] [phone] Denia Mcdonnell MD [address] [place] [phone] 09/30/2024 2:45 PM EDT Consult General Surgery [address] [phone] Sarthak Ren MD [address] [place] [address] 10/11/2024 1:00 PM EDT Office Visit Internal Medicine - [address] [phone] Deya Henriquez NP [address] [place] [address] 10/28/2024 11:15 AM EDT Office Visit Internal Medicine - [address] [phone] Deya Henriquez, KIRAN [address] [place], [place] 10/31/2024 2:00 PM EDT Office Visit Endocrinology - [address] [phone] Sarah Cobian PA [address] [place] [address] 11/26/2024 1:00 PM EDT Office Visit Internal Medicine - [address] [phone] Fernanda Robins MD [address] [place], [place] Health Maintenance Due Date Last Done Comments Zoster Vaccines (1 of 2) 1997 Hepatitis B Vaccines (2 of 3 - 19+ 3-dose series) 03/24/2009 02/24/2009 COVID-19 Vaccine (3 - Moderna risk series) 10/10/2020 09/12/2020, 08/15/2020 RSV Immunization Adult Patients (1 - 1-dose 75+ series) 2022 Diabetes: Annual Urine Albumin-Creatinine Ratio (uACR) 10/12/2022 10/12/2021 Diabetes: Annual Foot Exam 02/11/2023 02/11/2022 Diabetes: Blood Sugar Control Test (HGBA1C) 02/26/2025 08/26/2024, 05/22/2024, 10/30/2023, Additional history exists Diabetes: Annual Retina Eye Exam 06/25/2025 06/25/2024, 04/02/2024, 10/30/2023 Depression Screening 07/25/2025 07/25/2024 Falls Risk Assessment 07/25/2025 07/25/2024 Medicare Annual Wellness Visit 07/25/2025 07/25/2024 Social Influencers of Health Screening 07/25/2025 07/25/2024 Diabetes: Annual GFR (Glomerular Filtration Rate) 09/04/2025 09/04/2024, 05/22/2024, 10/30/2023 Hypertension/CHF/CAD Annual BMP Blood Test 09/04/2025 09/04/2024, 05/22/2024, 10/30/2023 Cholesterol Screening (Lipid Panel) 01/12/2028 01/11/2023 DTaP,Tdap,and Td Vaccines (4 - Td or Tdap) 06/19/2030 06/19/2020, 01/10/2019, 07/16/2010 Osteoporosis Screening (Bone Density Screening) 12/22/2032 12/22/2022, 10/15/2020, 02/13/2019, Additional history exists Hepatitis C Screening Completed 12/18/2014 Pneumococcal Vaccine: 50+ Years Completed 01/09/2017, 02/03/2012 Influenza Vaccine Discontinued [...] patient's age to complete this topic Meningococcal B Vaccine Aged Out No l onger eligible based on patient's age to complete this topic RSV Immunization Patients Under 20 months Aged Out No longer eligible based on patient's age to complete this topic Varicella Vaccines Aged Out No longer eligible based on patient's age to complete this topic Procedures Procedure Name Priority Date/Time Associated Diagnosis Comments BUN Routine 09/04/2024 1:42 PM EDT Renovascular hypertension Stage 3a chronic kidney disease (CMS/HCC V24, CMS/HCC V28) ELECTROLYTE PANEL Routine 09/04/2024 1:4 2 PM EDT Renovascular hypertension Stage 3a chronic kidney disease (CMS/HCC V24, CMS/HCC V28) CREATININE, SERUM Routine 09/04/2024 1:4 2 PM EDT Renovascular hypertension Stage 3a chronic kidney disease ([facility] V24, [facility] V28) XR SHOULDER 2+ VIEWS RIGHT Routine 08/26/2024 11:33 AM EDT Right carpal tunnel syndrome DRUG ABUSE SCREEN EXPANDED WITH REFLEX CONFIRMATION, URINE Routine 08/26/2024 11:19 AM EDT Encounter for long-term (current) use of high-risk medication HEMOGLOBIN A1C Routine 08/26/2024 11:19 AM EDT DM (diabetes mellitus), type 2 with neurological complications ([facility] V24, [facility] V28) VITAMIN B12 Routine 08/26/2024 11:19 AM EDT Tired NM EXERCISE STRESS TEST W/ MYOCARDIAL PERFUSION Routine 08/08/2024 9:44 AM EDT Coronary artery disease, unspecified vessel or lesion type, unspecified whether angina present, unspecified whether flandreau or transplanted heart ECG 12-LEAD Routine 07/23/2024 1:45 PM EDT Coronary artery disease, unspecified vessel or lesion type, unspecified whether angina present, unspecified whether flandreau or transplanted heart POC GLUCOSE Routine 07/19/2024 1:32 PM EDT Type 2 diabetes mellitus with chronic kidney disease, without long-term current use of insulin, unspecified CKD stage ([facility] V24, [facility] V28) EXTERNAL DIABETIC RETINA EYE EXAM 06/25/2024 COLONOSCOPY Routine 02/26/2024 11:47 AM EST Diverticulitis of colon (without mention of hemorrhage)(562.11) LIPID PANEL Routine 01/11/2023 DXA BONE DENSITY STUDY 1+ SITS AXIAL SKEL Routine 12/22/2022 2:34 PM EDT Age-related osteoporosis without current pathological fracture DIABETES FOOT EXAM Routine 02/11/2022 URINE ALBUMIN CREATININE RATIO Routine 10/12/2021 HEPATITIS C SCREENING Routine 12/18/2014 from Last 3 Months or Most Recently Relevant to Health Maintenance Results * (ABNORMAL) Creatinine (09/04/2024 1:42 PM EDT) Creatinine 1.47(H) 0.50 - 1.10 mg/dL LAB CHEMISTRY METHOD 09/04/2024 5:02 PM EDT [facility] eGFR 37(L) >=60 mL/min/1. 73m2 LAB CHEMISTRY METHOD 09/04/2024 5:02 PM EDT [facility] Comment:Calculation based on the Chronic Kidney Disease Epidemiology Collaboration (CKD-EPI) equation refit without adjustment for race. Blood Venous blood specimen / Unknown Venipuncture / Unknown 09/04/2024 1:42 PM EDT 09/04/2024 1:42 PM EDT us Long Metz MD LAB BLOOD ORDERABLES Final Resul t [facility] [address] [place] [address], [place] [phone] * (ABNORMAL) BUN (09/04/2024 1:42 PM EDT) BUN 44(H) 5 - 25 mg/dL LAB CHEMISTRY METHOD 09/04/2024 5:02 PM EDT [facility] Blood Venous blood specimen / Unknown Venipuncture / Unknown 09/04/2024 1:42 PM EDT 09/04/2024 1:42 PM EDT us Long Metz MD LAB BLOOD ORDERABLES Final Resul t Performing Organization Address [facility] Co de Phone Number [facility] [address] [place] [address], [place] [phone] * (ABNORMAL) Electrolyte panel (09/04/2024 1:42 PM EDT) Sodium 140 133 - 145 mmol/L LAB CHEMISTRY METHOD 09/04/2024 5:02 PM EDT [facility] Potassium 5.2 3.5 - 5.5 mmol/L LAB CHEMISTRY METHOD 09/04/2024 5:02 PM EDT [facility] Chloride 112(H) 96 - 110 mmol/L LAB CHEMISTRY METHOD 09/04/2024 5:02 PM EDT [facility] CO2 23 21 - 32 mmol/L LAB CHEMISTRY METHOD 09/04/2024 5:02 PM EDT [facility] Anion Gap 5 3 - 11 LAB CHEMISTRY METHOD 09/04/2024 5:02 PM EDT [facility] Blood Venous blood specimen / Unknown Venipuncture / Unknown 09/04/2024 1:42 PM EDT 09/04/2024 1:42 PM EDT us Long Metz MD LAB BLOOD ORDERABLES Final Resul t Performing Organization Address [facility] Co de Phone Number [facility] [address] [place] [address], [place] [phone] * XR Shoulder 2+ Views Right (08/26/2024 11:33 AM EDT) Anatomical Region Laterality Modality Upper Extremities, Shoulder Right Radi ographic Imaging 08/26/2024 1:22 PM EDT Impressions 08/26/2024 1:25 PM EDT No acute fracture or dislocation of the right shoulder. -------- FINAL REPORT -------- Dictated By: Omega Silva Dictated Date: 08/26/2024 13:22 ET Assigned Physician: Omega Silva Reviewed and Electronically Signed By: Omega Silva Signed Date: 08/26/2024 13:25 ET Workstation ID: [id number] Transcribed By: Self Edit Transcribed Date: 08/26/2024 13:22 ET Narrative 08/26/2024 1:25 PM EDT HISTORY: pain TECHNIQUE: 4 views of the right shoulder COMPARISON: None FINDINGS: No acute fracture or dislocation is seen. There is no evidence of malalignment. The AC joint is intact. Procedure Note Omega Silva MD - 08/26/2024 HISTORY: pain TECHNIQUE: 4 views of the right shoulder COMPARISON: None FINDINGS: No acute fracture or dislocation is seen. There is no evidence ofmalalignment. The AC joint is intact. IMPRESSION: No acute fracture or dislocation of the right shoulder. -------- FINAL REPORT -------- Dictated By: Omega Silva Dictated Date: 08/26/2024 13:22 ET Assigned Physician: Omega Silva Reviewed and Electronically Signed By: Omega Silva Signed Date: 08/26/2024 13:25 ET Workstation ID: [id number] Transcribed By: Self Edit Transcribed Date: 08/26/2024 13:22 ET us Deya Wooten NP IMG XR PROCEDURES Final Resu lt * Drug abuse screen expanded with reflex confirmation, urine (08/26/2024 11:19 AM EDT) Amphetamine Screen, Ur Negative Negative LAB CHEMISTRY METHOD 08/26/2024 4:24 PM EDT [facility] Comment:Certain OTC medicati ons containing ephedrine, phenylephrine, pseudoephedrine and phenylpropanolamine can cause false positive results. Barbiturate Screen, Ur Negative Negative LAB CHEMISTRY METHOD 08/26/2024 4:24 PM EDT [facility] Benzodiazepine Screen, Ur Negative Negative LAB CHEMISTRY METHOD 08/26/2024 4:24 PM EDT [facility] Cocaine Screen, Ur Negative Negative LAB CHEMISTRY METHOD 08/26/2024 4:24 PM EDT [facility] Opiate Screen, Ur Negative Negative LAB CHEMISTRY METHOD 08/26/2024 4:24 PM EDT [facility] Cannabinoid (THC) Screen, Ur Negative Negative LAB CHEMISTRY METHOD 08/26/2024 4:24 PM EDT [facility] Comment:Specimens from patie nts taking pantoprazole sodium (Protonix) have been shown to produce false positive results. Fentanyl, Ur Negative Negative LAB CHEMISTRY METHOD 08/26/2024 4:24 PM EDT [facility] Oxycodone Screen, Ur Negative Negative LAB CHEMISTRY METHOD 08/26/2024 4:24 PM EDT [facility] Urine Urine specimen obtained by clean catch procedure / Unknown Non-blood Collection / Unknown 08/26/2024 11:19 AM EDT 08/26/2024 11:19 AM EDT Narrative [facility] - 08/26/2024 4:24 PM EDT Assay cutoffs: Amphetamines ? 1000 ng/mL Barbiturates ?200 ng/mL Benzodiazepines ?? 200 ng/mL Cocaine ? 300 ng/mL Fentanyl ?1 ng/mL Opiates ? 300 ng/mL Oxycodone ? 100 ng/mL THC ?50 ng/mL Semi-quantitative assay for screening purposes only. Unconfirmed screening result should not be used for non-medical purposes. *POSITIVE RESULTS ARE AUTOMATICALLY SENT FOR ALTERNATE METHOD CONFIRMATION* us Deya Wooten NP LAB URINE ORDERABLES Final R esult [facility]) [facility] [address] [place] [address], * (ABNORMAL) Hemoglobin A1c (08/26/2024 11:19 AM EDT) [facility] Hemoglobin A1C 8.6(H) <6.5 % LAB CHEMISTRY METHOD 08/26/2024 9:11 PM EDT [facility] Mean Bld Glu Estim. 200 mg/dL LAB CHEMISTRY METHOD 08/26/2024 9:11 PM EDT [facility] Blood Venous blood specimen / Unknown Venipuncture / Unknown 08/26/2024 11:19 AM EDT 08/26/2024 11:19 AM EDT us Deya Wooten [employer]ER LAB BLOOD ORDERABLES Final R esult Performing Organization Address City/[facility]/ZIP Co de Phone Number [facility] [address] [place] [address], [place] [phone] * Vitamin B12 (08/26/2024 11:19 AM EDT) [facility] Vitamin B-12 292 250 - 900 pcg/mL LAB CHEMISTRY METHOD 08/26/2024 3:49 PM EDT [facility] Blood Venous blood specimen / Unknown Venipuncture / Unknown 08/26/2024 11:19 AM EDT 08/26/2024 11:19 AM EDT us Deya Wooten [employer] LAB BLOOD ORDERABLES Final R esult [facility] [address] [place] [address], [place] [phone] * NM EXERCISE STRESS TEST W/ MYOCARDIAL PERFUSION (08/08/2024 9:44 AM EDT) [facility] Baseline HR 64 bpm CV PACS STRESS Peak HR 131 bpm CV PACS STRESS Estimated workload 7.0 METS CV PACS STRESS Exercise/injec tion duration (min) 5 CV PACS STRESS Exercise/injec tion duration (sec) 53 CV PACS STRESS Angina Index 0 CV PACS STRESS Max HR Percent 91 % CV PA CS STRESS Baseline SBP 155 mmHg CV PACS STRESS Baseline DBP 55 mmHg CV PACS STRESS O2 sat rest 94 % CV PACS STRESS Peak SBP 190 mmHg CV PACS STRESS Peak DBP 60 mmHg CV PACS STRESS Percent HR 92 % CV PACS STRESS Rate Pressure Product 24,890.0 mmHg*bpm CV PACS STRESS Target HR 122 bpm CV PACS STRESS TID 1.16 CV PACS STRESS Nuc Stress EF 75 % CV PAC S STRESS Nuc Rest EF 76 % CV PACS STRESS Anatomical Region Laterality Modality Nuclear Medicine 08/08/2024 9:44 AM EDT 08/08/2024 10:54 AM EDT Impressions 08/19/2024 10:53 AM EDT Normal Exercise stress test with nuclear imaging. ?? No chest pain or EKG changes consistent with ischemia. Nuclear imaging revealed no significant perfusion defects after attenuation correction was applied. There is a normal TID ratio. Gated SPECT imaging was performed and revealed an LVEF of 76 %. Narrative 08/19/2024 10:53 AM EDT Nuclear imaging of the left ventricle shows a normal cavity size. Myocardial perfusion imaging of the left ventricle reveals no significant perfusion defects after CT attenuation correction was applied to the study. Gated SPECT imaging was performed which demonstrated normal left ventricular systolic function. The calculated LVEF is 76 %. TID ratio is normal. Stress Findings A Rock protocol stress test was performed. Overall, the patient's exercise capacity was above average. The patient reached stage 2. Total stress time was 5 min and 53 sec. The patient experienced no angina during the test. The test was stopped because the patient experienced fatigue. The patient's hemodynamic response was adequate for diagnosis. Blood pressure demonstrated a normal response. Heart rate demonstrated a normal response. The patient reported mild dyspnea at peak exercise which resolved in recovery. ECG 79-year-old female with a past medical history significant for coronary artery disease status post stent to the LAD in October 2021, hyperlipidemia, hypertension, obesity, carotid artery stenosis, diabetes mellitus type 2. Patient reporting chest discomfort. Rule out ischemia. The ECG shows sinus bradycardia. Baseline ECG indicates right bundle branch block. There were no arrhythmias during stress. There is no significant ST abnormalities during stress. There were no arrhythmias during recovery. The result of the stress ECG was negative for ischemia in the setting of baseline RBBB. Nuclear Study Quality Study technique: MPI, SPECT, multi, rest and stress, 1 day and gated. Overall image quality is good. CT attenuation correction was utilized. There are no artifacts present. No radiopharmaceutical dose was extravasated. Stress Function Comments Stress ejection fraction is 75%. Rest Function Comments Resting ejection fraction was 76%. Result [facility] Umang Corado NP CV STRESS PROCEDURES Final Result * ECG 12 lead (07/23/2024 1:45 PM EDT) Ventricular Rate ECG 66 BPM GEMUSE Atrial Rate 66 BPM GEMUSE P-R Interval 148 ms GEMUSE QRS Duration 116 ms GEMUSE Q-T Interval 412 ms GEMUSE QTc 431 ms GEMUSE P Wave [place] 51 degrees GEMUSE R [place] 61 degrees GEMUSE T [place] 26 degrees GEMUSE ECG Interpretation Normal sinus rhythm Right bundle branch block Abnormal ECG When compared with ECG of 05-MAR-2015 19:15, Right bundle branch block is now Present Confirmed by ZELDA HEMPHILL ([id number]) on 07/26/2024 9:14:22 AM GEMUSE 07/23/2024 1:45 PM EDT 07/26/2024 9:14 AM EDT Result [facility] Umang Corado NP ECG ORDERABLES Final Resul t GEMUSE * POC glucose manually resulted (07/19/2024 1:32 PM EDT) Glucose POC 146 mg/dL Comment:Non fasting Blood Capillary blood specimen / Unknown 07/19/2024 1:32 PM EDT Result [facility] Sarah ROTHMAN POINT OF CARE TEST ENTER/ED IT ORDERABLES Final Result * External Diabetic Retina Eye Exam Report (06/25/2024) Anatomical Region Laterality Modality Ultrasound Result [facility] Provider [employer] IMG US PROCEDURES Final Result * COLONOSCOPY Anesthesia - MAC; [facility] ENDOSCOPY (02/26/2024 11:47 AM EST) Anatomical Region Laterality Modality Endoscopy 02/26/2024 11:1 8 AM EST Narrative 02/26/2024 11:47 AM EST [facility] GI Patient Name: Laura Bernabe ? Procedure Date: 02/26/2024 11:18 AM ? Date of : 1945 ?Age: 79 Room: ROOM 16 ? Gender: Female Note Status: Finalized ?Attending MD: Shlomo Cast DO, [id number] Procedure Date No Time: 02/26/2024 ? Procedure: ? Colonoscopy Indications: ? Screening for colorectal malignant neoplasm Providers: ? Shlomo Cast DO Referring MD: ?Shlomo Cast DO Medicines: ? Monitored Anesthesia Care Complications: [...] physician, the nurse, the ? anesthesiologist, the women's studies professor and the isotope technician ? in the pre-procedure area in the [...] Procedure Code(s): ? --- Professional --- ? 15997, Colonoscopy, flexible; with removal of ? tumor(s), polyp(s), or other lesion(s) by snare ? technique Diagnosis Code(s): ? --- Professional --- ? K64.9, Unspecified hemorrhoids ? Z12.11, Encounter for screening for malignant neoplasm ? of colon ? D12.5, Benign neoplasm of sigmoid colon CPT copyright 2020 [employer]. All rights reserved. The codes documented in this report are preliminary and upon duck farmer review may be revised to meet current compliance requirements. SHLOMO CAST Shlomo Cast DO 02/26/2024 11:47:38 AM This report has been signed electronically.Shlomo Cast DO Number of Addenda: 0 Note Initiated On: 02/26/2024 11:18 AM Scope Withdrawal Time: 0 hours 7 minutes 15 seconds Scope In: 11:34:19 AM Scope Out: 11:45:11 AM ? Endoscopy Department at [facility] - [address] [place] [address], ? [place] [id number] Procedure Note Shlomo Cast DO - 02/26/2024 [facility] GI Patient Name: Laura Kidd Procedure Date: 02/26/2024 11:18 AM Date of : 1945 Age: 79 Room: ROOM 16 Gender: Female Note Status: Finalized Attending MD: Shlomo Cast DO,[id number] Procedure Date No Time: 02/26/2024 Procedure: Colonoscopy [...] the physician, the nurse, the anesthesiologist, the women's studies professor and thetechnician in the pre-procedure area in [...] pathology results. Procedure Code(s): --- Professional --- 52841, Colonoscopy, flexible; with removal of tumor(s), polyp(s), or other lesion(s) by snare technique Diagnosis Code(s): --- Professional --- K64.9, Unspecified hemorrhoids Z12.11, Encounter for screening for malignantneoplasm of colon D12.5, Benign neoplasm of sigmoid colon CPT copyright 2020 [employer]. All rights reserved. The codes documented in this report are preliminary and upon duck farmer reviewmay be revised to meet current compliance requirements. SHLOMO CAST Shlomo Cast DO 02/26/2024 11:47:38 AM This report has been signed electronically.Shlomo Cast DO Number of Addenda: 0 Note Initiated On: 02/26/2024 11:18 AM Scope Withdrawal Time: 0 hours 7 minutes 15 seconds Scope In: 11:34:19 AM Scope Out: 11:45:11 AM Endoscopy Department at [facility] - [address] [place] [phone] us Shlomo Cast DO GI~PROCEDURE ORDERABLES Final Re sult * (ABNORMAL) Lipid panel (01/11/2023) LDL/HDL Ratio 4 0 - 4 Triglycerides 280(A) 0 - 150 mg/dL Cholesterol 155 0 - 200 mg/dL HDL 43 >=40 mg/dL LDL Cholesterol 56 0 - 100 mg/dL Blood Venous blood specimen / Unknown us Historical Provider LAB BLOOD ORDERABLES Anila l Result * DXA BONE DENSITY STUDY 1+ SITS [...] IMPRESSION: ?? Osteoporosis by WHO criteria. The [facility] of Internal Medicine recommends using National [...] alternative screening schedule based on rashad Boothe., [facility] May 12, 2011 for patients with osteopenia [...] IMPRESSION: IMPRESSION: Osteoporosis by WHO criteria. The [facility] Department of Internal Medicine recommendsusing National Osteoporosis [...] alternative screening schedule based on rashad Boothe., NEJMJanuary 2011 for patients with osteopenia (based on hip BMD T-score) is as follows: * advanced osteopenia (T scores -2.00 to -2.49), BMD testing every year * moderate osteopenia (T scores -1.50 to -1.99), BMD testing every 5years mild osteopenia or normal BMD (T scores -1.50 and higher), BMD testingevery 15 years Result [facility] Mervat Cruz MD IMG DXA PROCEDURES Final Result * Diabetes Foot Exam (02/11/2022) [facility] Diabetes: Annual Foot Exam Abstracted Result [facility] Provider HEALTH MAINTENANCE Final Result * Urine Albumin Creatinine Ratio (10/12/2021) [facility] Urine Albumin Creatinine Ratio Abstracted Result [facility] Provider HEALTH MAINTENANCE Final Result * Hepatitis C Screening (12/18/2014) [facility] Hepatitis C Screening Abstracted Result [facility] Provider HEALTH MAINTENANCE Final Result from Last 3 Months or Most Recently Relevant to Health Maintenance Insurance [phone] [place] [address] [employer] MEDICARE Member Subscriber Plan / Payer (Ef fective 2012-Present) Name:Laura Kidd Relation to Subscriber:Self Name:Laura Kidd Payer ID:[id number] Group ID:[id number] Type:Not on file Address: [address] [facility] [place] [address] Care Teams Cytopathologist Relationship Specialty Start Date End Date Fernanda Robins MD [address] [place] [address] PCP - General Internal Medicine 08/22/24
--- OUTSIDE RECORDS SUMMARY | 2024-09-10 15:34 | XMS_ITS | Encounter Summary ---
Author Organization [facility] Address [address] [place] [address] Care Team Providers Care Paint Sprayer Sandblaster Name Role Phone Phil Rodriguez MD Primary Care Provider Unavail able Tony Rodriguez MD Primary Care Provider Unavail able Phil Rodriguez MD Primary Care Provider Unavail able Ashley Rosado APRN Primary Care Provider Unav ailable Triston Bailey MD Unavailable Remedios Warren Unavailable Unavailable Umang Corado MANAGER ORACLE Unavailable Johana Lizarraga MD Primary Care Provider Chanda Soria MANAGER ORACLE Unavailable Susie Starr DO Primary Care Provider [phone] Johana Lizarraga MD Primary Care Provider Susie Satrr DO Primary Care Provider [phone] Phil Rodriguez MD Primary Care Provider Unavail able Susie Starr DO Primary Care Provider [phone] Loreto Albert MD Unavailable [phone] Lizbeth Schilling APRN Primary Care Provider Susie Starr DO Primary Care Provider [phone] Reason for Visit * Reason Onset Date Comments Urine Drug Screen 08/04/2014 Encounter Details Date Type Department Care Team Description 08/04/2014 Telephone Adult Medicine [address] [address] Phil Rodriguez MD Urine Drug Screen Social [...] often do you attend [facility]? More than 4 times per year [...] a random urine drug screen in our [facility] by 08/05/14. The patientwas also instructed that failure to complete this urine drug screen, as requested, would jeopardizetheir Controlled Substance Contract with [facility]. The patient expressed understanding of the instructions [...] Negative . ng/mL 08/07/2014 6:07 PM EDT [facility] HYDROMORPHONE UR GCMS Negative . ng/mL 08/07/2014 6:07 PM EDT [facility] Comment: Performed at: ??[facility] [address] ??[id number] Core Sticker: Ferdinand Castellon MD, Phone: ??[phone] 08/04/2014 1:55 PM EDT 08/04/2014 1:56 PM EDT hPil Rodriguez MD LAB Performing Organization Address City/[facility] Co de Phone Number [employer] * (ABNORMAL) OXYCODONE, URINE (08/04/2014 1:55 PM EDT) URINE OXYCODONE LEVEL POSITIVE( A) NEGATIVE 08/04/2014 5:27 PM EDT [facility] Comment: Semi-quantitative urine assay for screening purposes only. Unconfirmed screening results should not be used for non-medical purposes. ALTERNATE METHOD CONFIRMATION DONE UPON REQUEST ONLY 08/04/2014 1:55 PM EDT 08/04/2014 1:56 PM EDT Phil Rodriguez MD LAB Performing Organization Address City/[facility]/ZIP Co de Phone Number [address] documented in this encounter Visit Diagnoses Diagnosis Encounter for long-term (current) use of other medications- Primary documented in this encounter Care Teams Paint Sprayer Sandblaster Relationship Specialty Start Date End Date Phil Rodriguez MD PCP - General 03/07/05 12/04/14 Tony Rodriguez MD PCP - General Internal Medicine 12/05/14 12/14/14 Phil Rodriguez MD PCP - General Internal Medicine 12/15/14 09/19/19 Ashley Rosado APRN PCP - General Internal Medicine 09/20/19 06/27/22 Johana Lizarraga MD [address] [place] [address] [place] [address] PCP - General Internal Medicine 06/28/22 11/30/22 Ro [facility], DO [address] [facility] [address] PCP - General Internal Medicine 12/01/22 12/01/22 Johana Lizarraga MD [address] [place] [address] [place] [address] PCP - General Internal Medicine 12/02/22 12/29/22 Zacharyjames [facility], DO [address] [facility] [address] PCP - General Internal Medicine 12/30/22 12/30/22 Phil Rodriguez MD PCP - General Internal Medicine 01/04/23 01/10/23 [facility], DO [address] [facility] [place] [address] PCP - General Internal Medicine 01/11/23 02/01/24 Lizbeth Schilling APRN [address] [facility] [address] PCP - General Internal Medicine 02/02/24 02/11/24 Lisa Starrmana, DO [address] [facility] [place] [address] PCP - General Internal Medicine 02/12/24 Triston Bailey MD [address] [place] [address] [place] [address] Catering Operations Manager Cardiovascular Disease 06/10/20 Remedios Warren PA [address] [place] [address] [place] [address] Cardiology 12/08/21 Umang Corado NP [address] [place] [address] [place] [address] Specialist Cardiology 02/23/22 Chanda Soria NP [address] [place] [address] [place] [address] Cardiology 08/11/22 Loreto Albert MD [address] [place] [address] Internal Medicine 04/13/23 documented as of this encounter
--- OUTSIDE RECORDS SUMMARY | 2024-09-10 15:34 | XMS_ITS | Encounter Summary ---
Author Organization [facility] Address [address] [place] [address] Care Team Providers Care Motorcycle Engine Assembler Name Role Phone Phil Rodriguez MD Primary Care Provider Unavail able Tony Rodriguez MD Primary Care Provider Unavail able Phil Rodriguez MD Primary Care Provider Unavail able Ashley Rosado APRN Primary Care Provider Unav ailable Triston Bailey MD Unavailable Remedios Warren Unavailable Unavailable Umang Corado CRAP GAME BOX PERSON Unavailable Johana Lizarraga MD Primary Care Provider Chanda Soria NP Unavailable Susie Starr DO Primary Care Provider [phone] Johana Lizarraga MD Primary Care Provider Susie Starr DO Primary Care Provider [phone] Phil Rodriguez MD Primary Care Provider Unavail able Susie Starr DO Primary Care Provider [phone] Loreto Albert MD Unavailable [phone] Lizbeth Schilling APRN Primary Care Provider Susie Starr DO Primary Care Provider [phone] Encounter Details Date Type Department Care Team Description 01/21/2011 Controlled Substance Plan Medical Records [address] [place] [address] Abstract, Provider Social History Tobacco Use Types [...] 04/13/2023 How often do you attend [facility] or restoration services? More than 4 times per year [...] on filedocumented in this encounter Care Teams Motorcycle Engine Assembler Relationship Specialty Start Date End Date Pihl Rodriguez MD PCP - General 03/07/05 12/04/14 Tony Rodriguez MD PCP - General Internal Medicine 12/05/14 12/14/14 Phil Rodriguez MD PCP - General Internal Medicine 12/15/14 09/19/19 Ashley Rosado APRN PCP - General Internal Medicine 09/20/19 06/27/22 Johana Lizarraga MD [address] [place] [address] [place] [address] PCP - General Internal Medicine 06/28/22 11/30/22 [facility], [address] [place] [address] PCP - General Internal Medicine 12/01/22 12/01/22 Johana Lizarraga MD [address] [place] [address] [place] [address] PCP - General Internal Medicine 12/02/22 12/29/22 [facility], [address] [place] [address] PCP - General Internal Medicine 12/30/22 12/30/22 Phil Rodriguez MD PCP - General Internal Medicine 01/04/23 01/10/23 [facility], [address] [facility] [place] [address] PCP - General Internal Medicine 01/11/23 02/01/24 Lizbeth Schilling, MELISSA [address] [place] [address] PCP - General Internal Medicine 02/02/24 02/11/24 [facility], [address] [facility] [place] [address] PCP - General Internal Medicine 02/12/24 Triston Bailey MD [address] [place] [address] [place] [address] Reel System Operator Cardiovascular Disease 06/10/20 Remedios Warren PA [address] [place] [address] [place] [address] Cardiology 12/08/21 Umang Corado NP [address] [place] [address] Specialist Cardiology 02/23/22 Chanda Soria NP [address] [place] [address] Cardiology 08/11/22 Loreto Albert MD [address] [place] [address] Internal Medicine 04/13/23 documented as of this encounter
--- OUTSIDE RECORDS SUMMARY | 2024-09-10 15:34 | XMS_ITS | Encounter Summary ---
Author Organization [facility] Address [address] [place] [address] Care Team Providers Care Medical Administrative Specialist Name Role Phone Phil Rodriguez MD Primary Care Provider Unavail able Tony Rodriguez MD Primary Care Provider Unavail able Phil Rodriguez MD Primary Care Provider Unavail able Ashley Rosado APRN Primary Care Provider Unav ailable Triston Bailey MD Unavailable Remedios Warren Unavailable Unavailable Umang Corado MANUFACTURING SCHEDULER Unavailable Johana Lizarraga MD Primary Care Provider Chanda Soria MANUFACTURING SCHEDULER Unavailable Susie Starr DO Primary Care Provider [phone] Johana Lizarraga MD Primary Care Provider Susie Starr DO Primary Care Provider [phone] Phil Rodriguez MD Primary Care Provider Unavail able Susie Starr DO Primary Care Provider [phone] Loreto Albert MD Unavailable [phone] Lizbeth Schilling APRN Primary Care Provider [phone] Susie Starr DO Primary Care Provider [phone] Encounter Details Date Type Department Care Team Description 12/01/2010 Cyberathlete Report Medical Records [address] [place] [address] Simeon Reed Social History Tobacco Use Types [...] on filedocumented in this encounter Care Teams Medical Administrative Specialist Relationship Specialty Start Date End Date Phil Rodriguez MD PCP - General 03/07/05 12/04/14 Tony Rodriguez MD PCP - General Internal Medicine 12/05/14 12/14/14 Phil Rodriguez MD PCP - General Internal Medicine 12/15/14 09/19/19 Ashley Rosado APRN PCP - General Internal Medicine 09/20/19 06/27/22 Johana Lizarraga MD 2 [facility] [place] [address] PCP - General Internal Medicine 06/28/22 11/30/22 [facility], [address] [place] [address] PCP - General Internal Medicine 12/01/22 12/01/22 Johana Lizarraga MD [address] [place] [address] [place] [address] PCP - General Internal Medicine 12/02/22 12/29/22 [facility] [address] [place] [address] PCP - General Internal Medicine 12/30/22 12/30/22 Phil Rodriguez MD PCP - General Internal Medicine 01/04/23 01/10/23 [facility], [address] [place] [address] PCP - General Internal Medicine 01/11/23 02/01/24 Lizbeth Schilling, SALES AND SERVICE CONSULTANT [address] [place] [address] PCP - General Internal Medicine 02/02/24 02/11/24 [facility], [address] [place] [address] PCP - General Internal Medicine 02/12/24 Triston Bailey MD [address] [place] [address] [place] [address] Major League Baseball Umpire Cardiovascular Disease 06/10/20 Remedios Warren PA 2 [facility] [place] [address] Cardiology 12/08/21 Umang Corado NP [address] [place] [address] Dr [facility] [address] [place] [address] Specialist Cardiology 02/23/22 Chanda Soria NP [address] [place] [address] Breann Ez [address] [place] [address] Cardiology 08/11/22 Loreto Albert MD [address] [place] [address] Internal Medicine 04/13/23 documented as of this encounter
--- OUTSIDE RECORDS SUMMARY | 2024-09-10 15:35 | XMS_ITS | Encounter Summary ---
Author Organization [facility] Address [address] [place] [address] Care Team Providers Care Senior Treasury Consultant Name Role Phone Phil Rodriguez MD Primary Care Provider Unavail able Tony Rodriguez MD Primary Care Provider Unavail able Phil Rodriguez MD Primary Care Provider Unavail able Ashley Rosado APRN Primary Care Provider Unav ailable Triston Bailey MD Unavailable Remedios Warren Unavailable Unavailable Umang Corado CLINICAL TRIAL ASSOCIATE Unavailable Johana Lizarraga MD Primary Care Provider Chanda Soria NP Unavailable Susie Starr DO Primary Care Provider [phone] Johana Lizarraga MD Primary Care Provider Susie Starr DO Primary Care Provider [phone] Phil Rodriguez MD Primary Care Provider Unavail able Susie Starr DO Primary Care Provider [phone] Loreto Albert MD Unavailable [phone] Lizbeth Schilling APRN Primary Care Provider Susie Starr DO Primary Care Provider [phone] Encounter Details Date Type Department Care Team Description 09/13/2010 Real Estate Specialist Report Medical Records [address] [place] [address] Triston Allred MD, MD Social History Tobacco [...] do you attend [facility] or mormonism services? More than 4 times [...] on filedocumented in this encounter Care Teams Senior Treasury Consultant Relationship Specialty Start Date End Date Phil Rodriguez MD PCP - General 03/07/05 12/04/14 Tony Rodriguez MD PCP - General Internal Medicine 12/05/14 12/14/14 Phil Rodriguez MD PCP - General Internal Medicine 12/15/14 09/19/19 Ashley Rosado APRN PCP - General Internal Medicine 09/20/19 06/27/22 Johana Lizarraga MD [address] [place] [address] [place] [address] PCP - General Internal Medicine 06/28/22 11/30/22 [facility], [address] [place] [address] PCP - General Internal Medicine 12/01/22 12/01/22 Johana Lizarraga MD [address] [place] [address] [place] [address] PCP - General Internal Medicine 12/02/22 12/29/22 [facility] [address] [place] [address] PCP - General Internal Medicine 12/30/22 12/30/22 Phil Rodriguez MD PCP - General Internal Medicine 01/04/23 01/10/23 [facility], [address] [place] [address] PCP - General Internal Medicine 01/11/23 02/01/24 Lizbeth Schilling APRN [address] [place] [address] PCP - General Internal Medicine 02/02/24 02/11/24 [facility], [address] [place] [address] PCP - General Internal Medicine 02/12/24 Triston Bailey MD [address] [place] [address] [place] [address] Network Specialist Cardiovascular Disease 06/10/20 Remedios Warren PA [address] [place] [address] Cardiology 12/08/21 Umang Corado NP [address] [place] [address] [place] [address] Specialist Cardiology 02/23/22 Chanda Soria NP [address] [place] [address] Breann Hui [address] [place] [address] Cardiology 08/11/22 Loreto Albert MD [address] [place] [address] Internal Medicine 04/13/23 documented as of this encounter
--- OUTSIDE RECORDS SUMMARY | 2024-09-10 15:35 | XMS_ITS | Encounter Summary ---
Author Organization [facility] Address [address] [place] [address] Care Team Providers Care Bmw Sales Consultant Name Role Phone Ashley Rosado APRN Primary Care Provider Triston Franks MD Unavailable Remedios Warren Unavailable Unavailable Umang Corado VOCATIONAL COORDINATOR Unavailable [phone] Johana Lizarraga MD Primary Care Provider Chanda Soria NP Unavailable Susie Starr DO Primary Care Provider Johana Lizarraga MD Primary Care Provider Susie Starr DO Primary Care Provider Phil Rodriguez MD Primary Care Provider Unavail able Susie Starr DO Primary Care Provider [phone] Loreto Albert MD Unavailable [phone] Lizbeth Schilling APRN Primary Care Provider [phone] Susie Starr DO Primary Care Provider [phone] Encounter Details Date Type Department Care Team Description 02/19/2020 SCAN Medical Records [address] [place] [address] Abstract, Provider Social History Tobacco Use Types [...] How often do you attend [facility] or mu-ism services? More than 4 times per year 04/13/2023 Do you belong to any clubs o r organizations such as hinduism groups, unions, fraternal or athletic groups, or [...] on filedocumented in this encounter Care Teams Bmw Sales Consultant Relationship Specialty Start Date End Date Ashley Rosado APRN PCP - General Internal Medicine 09/20/19 06/27/22 Johana Lizarraga MD [address] [place] [address] [place] [address] PCP - General Internal Medicine 06/28/22 11/30/22 Susie Starr DO [address] [place] [address] PCP - General Internal Medicine 12/01/22 12/01/22 Johana Lizarraga MD [address] [place] [address] [place] [address] PCP - General Internal Medicine 12/02/22 12/29/22 [facility], [address] [place] [address] PCP - General Internal Medicine 12/30/22 12/30/22 Phil Rodriguez MD [address] [place] [address] PCP - General Internal Medicine 01/04/23 01/10/23 [facility], [address] [place] [address] PCP - General Internal Medicine 01/11/23 02/01/24 Lizbeth Schilling, SPEEDER OPERATOR [address] [place] [address] PCP - General Internal Medicine 02/02/24 02/11/24 [facility], [address] [place] [address] PCP - General Internal Medicine 02/12/24 Triston Bailey [place] [address] Launching Pad Mechanic Cardiovascular Disease 06/10/20 Remedios Warren PA 2 [facility] [place] [address] Cardiology 12/08/21 Umang Corado NP [address] [place] [address] Specialist Cardiology 02/23/22 Chanda Soria NP [address] [place] [address] Cardiology 08/11/22 Loreto Albert MD [address] [place] [address] Internal Medicine 04/13/23 documented as of this encounter
--- OUTSIDE RECORDS SUMMARY | 2024-09-10 15:35 | XMS_ITS | Encounter Summary ---
Author Organization [facility] Address [address] [place] [address] Care Team Providers Care Title Curative Specialist Name Role Phone Triston Bailey MD Unavailable Remedios Warren Unavailable Unavailable Umang Corado PATIENT ACCOUNTS SPECIALIST Unavailable [phone] Chanda Soria NP Unavailable [phone] Susie Starr DO Primary Care Provider [phone] Loreto Albert MD Unavailable [phone] Lizbeth Schilling APRN Primary Care Provider Susie Starr DO Primary Care Provider Reason for Visit * Reason Comments E-prescribe Rx Request Encounter Details Date Type Department Care Team Description 06/08/2023 Refill Adult Medicine [facility] [address] [place] [address] Johana Lizarraga MD [address] [place] [phone] E-prescribe Rx Request Social History Tobacco [...] do you attend [facility] or confucianism services? More than 4 times per year 04/13/2023 Do you belong to any clubs o r organizations such as baptist groups, unions, [employer]One Touch EMR or athletic groups, or school groups? No [...] N/A Patients current insurance carrier is: Payor: [facility] MCR / Plan: [employer] $0 [facility] [id number] / Product Type: HMO [id number]-[id number] documented in this encounter Plan of Treatment Not on file documented as of this encounter Visit Diagnoses Not on filedocumented in this encounter Care Teams Title Curative Specialist Relationship Specialty Start Date End Date Susie Starr, [address] [place] [address] PCP - General Internal Medicine 01/11/23 02/01/24 Lizbeth Schilling APRN [address] [place] [address] PCP - General Internal Medicine 02/02/24 02/11/24 Susie Starr DO [address] [place] [address] PCP - General Internal Medicine 02/12/24 Triston Bailey MD [address] [place] [address] [place] [address] Gamewell Operator Cardiovascular Disease 06/10/20 Remedios Warren PA [address] [place] [address] [place] [address] Cardiology 12/08/21 Uamng Corado NP [address] [place] [address] [place] [address] Specialist Cardiology 02/23/22 Chanda Soria NP [address] [place] [address] [place] [address] Cardiology 08/11/22 Loreto Albert MD [address] [place] [address] Internal Medicine 04/13/23 documented as of this encounter
--- OUTSIDE RECORDS SUMMARY | 2024-09-10 15:35 | XMS_ITS | Encounter Summary ---
Author Organization [facility] Address [address] [place] [address] Care Team Providers Care Labor Representative Name Role Phone Ashley Rosado APRN Primary Care Provider Triston Franks MD Unavailable [phone] Remedios Warren Unavailable Unavailable Umang Corado LASER/ELECTRO OPTICS TECHNICIAN Unavailable Johana Lizarraga MD Primary Care Provider Chanda Soria NP Unavailable Susie Starr DO Primary Care Provider Johana Lizarraga MD Primary Care Provider Susie Starr DO Primary Care Provider Phil Rodriguez MD Primary Care Provider Unavail able Susie Starr DO Primary Care Provider [phone] Loreto Albert MD Unavailable [phone] Lizbeth Schilling APRN Primary Care Provider [phone] Susie tSarr DO Primary Care Provider [phone] Encounter Details Date Type Department Care Team Description 11/17/2021 SCAN Medical Records [address] [place] [address] Social History Tobacco Use Types Packs/Day Years [...] How often do you attend [facility] or mormonism services? More than 4 times [...] on filedocumented in this encounter Care Teams Labor Representative Relationship Specialty Start Date End Date Ashley Rosado APRN PCP - General Internal Medicine 09/20/19 06/27/22 Johana Lizarraga MD [address] [place] [address] [place] [address] PCP - General Internal Medicine 06/28/22 11/30/22 Susie Starr DO [address] [place] [address] PCP - General Internal Medicine 12/01/22 12/01/22 Johana Lizarraga MD [address] [place] [address] [place] [address] PCP - General Internal Medicine 12/02/22 12/29/22 [facility], [address] [place] [address] PCP - General Internal Medicine 12/30/22 12/30/22 Phil Rodriguez MD [address] [place] [address] PCP - General Internal Medicine 01/04/23 01/10/23 [facility] [address] [place] [address] PCP - General Internal Medicine 01/11/23 02/01/24 Lizbeth Schilling, TILE APPLICATOR [address] [place] [address] PCP - General Internal Medicine 02/02/24 02/11/24 [facility] [address] [place] [address] PCP - General Internal Medicine 02/12/24 Triston Bailey MD [address] [place] [address] [place] [address] Clinical Unit Educator Cardiovascular Disease 06/10/20 Remedios Warren PA 2 [facility] [place] [address] Cardiology 12/08/21 Umang Corado NP 2 [facility] [place] [address] Specialist Cardiology 02/23/22 Chanda Soria NP [address] [place] [address] Cardiology 08/11/22 Loreto Albert MD [address] [place] [address] Internal Medicine 04/13/23 documented as of this encounter
--- OUTSIDE RECORDS SUMMARY | 2024-09-10 15:35 | XMS_ITS | Encounter Summary ---
Author Organization [facility] Address [address] [place] [address] Care Team Providers Care Tenant Selector Name Role Phone Triston Bailey MD Unavailable [phone] Remedios Warren Unavailable Unavailable Umang Corado SCRAP BUNCH MAKER Unavailable [phone] Chanda Soria SCRAP BUNCH MAKER Unavailable [phone] Susie Starr DO Primary Care Provider Loreto Albert MD Unavailable [phone] Lizbeth Schilling APRN Primary Care Provider [phone] Susie Starr DO Primary Care Provider [phone] Encounter Details Date Type Department Care Team Description 10/09/2023 [facility] Medical Records [address] [place] [address] Abstract, Provider Social History Tobacco Use Types [...] do you attend [facility] or anglican services? More than 4 times per year [...] on filedocumented in this encounter Care Teams Tenant Selector Relationship Specialty Start Date End Date Lisa Starrmana, [address] [place] [address] PCP - General Internal Medicine 01/11/23 02/01/24 Lizbeth Schilling APRN [address] [place] [address] PCP - General Internal Medicine 02/02/24 02/11/24 Lisa Starrmana, [address] [place] [address] PCP - General Internal Medicine 02/12/24 Triston Bailey MD [address] [place] [address] [place] [address] Surgical Elastic Knitter Cardiovascular Disease 06/10/20 Remedios Warren PA [address] [place] [address] Dr [address] [place] [address] Cardiology 12/08/21 Umang Corado NP [address] [place] [address] [place] [address] Specialist Cardiology 02/23/22 Chanda Soria NP [address] [place] [address] Breann Hui [address] [place] [address] Cardiology 08/11/22 Loreto Albert MD [address] [place] [address] Internal Medicine 04/13/23 documented as of this encounter
--- OUTSIDE RECORDS SUMMARY | 2024-09-10 15:35 | XMS_ITS | Encounter Summary ---
Author Organization [facility] Address [address] [place] [address] Care Team Providers Care Diesel Technician Mechanic Name Role Phone Ashley Rosado APRN Primary Care Provider Triston Franks MD Unavailable [phone] Remedios Warren Unavailable Unavailable Umang Corado REACTOR TECHNICIAN Unavailable [phone] Johana Lizarraga MD Primary Care Provider Chanda Soria NP Unavailable Susie Starr DO Primary Care Provider Johana Lizarraga MD Primary Care Provider Susie Starr DO Primary Care Provider Phil Rodriguez MD Primary Care Provider Unavail able Susie Starr DO Primary Care Provider Loerto Albert MD Unavailable [phone] Lizbeth Schilling APRN Primary Care Provider Susie Starr DO Primary Care Provider [phone] Reason for Visit * Reason Comments E-prescribe Rx Request Encounter Details Date Type Department Care Team Description 03/23/2020 Refill Adult Medicine [address] [address] Ashley Rosado APRN E-prescribe Rx Request Social [...] often do you attend [facility] or advent services? More than 4 times [...] N/A Patients current insurance carrier is: Payor: [facility] MCR / Plan: [facility] $0 [facility] [id number] / Product Type: HMO Hig-tcq-Skalojy documented in this encounter Plan of Treatment Not on file documented as of this encounter Visit Diagnoses Not on filedocumented in this encounter Care Teams Diesel Technician Mechanic Relationship Specialty Start Date End Date Ashley Rosado APRN PCP - General Internal Medicine 09/20/19 06/27/22 Johana Lizarraga MD [address] [place] [address] [place] [address] PCP - General Internal Medicine 06/28/22 11/30/22 [facility], [address] [place] [address] PCP - General Internal Medicine 12/01/22 12/01/22 Johana Lizarraga MD [address] [place] [address] [place] [address] PCP - General Internal Medicine 12/02/22 12/29/22 [facility], [address] [place] [address] PCP - General Internal Medicine 12/30/22 12/30/22 Phil Rodriguez MD [address] [place] [address] PCP - General Internal Medicine 01/04/23 01/10/23 [facility], [address] [place] [address] PCP - General Internal Medicine 01/11/23 02/01/24 Lizbeth Schilling, MELISSA [address] [place] [address] PCP - General Internal Medicine 02/02/24 02/11/24 [facility], [address] [place] [address] PCP - General Internal Medicine 02/12/24 Triston Bailey MD [address] [place] [address] [place] [address] Endocrinologist Cardiovascular Disease 06/10/20 Remedios Warren PA 2 [facility] [place] [address] Cardiology 12/08/21 Umang Corado NP 2 [facility] [place] [address] Specialist Cardiology 02/23/22 Chanda Soria NP [address] [place] [address] Cardiology 08/11/22 Loreto Albert MD [address] [place] [address] Internal Medicine 04/13/23 documented as of this encounter
--- OUTSIDE RECORDS SUMMARY | 2024-09-10 15:35 | XMS_ITS | Encounter Summary ---
Author Organization [facility] Address [address] [place] [address] Care Team Providers Care Phlebotomy Support Tech Name Role Phone Ashley Rosado APRN Primary Care Provider Triston Franks MD Unavailable [phone] Remedios Warren Unavailable Unavailable Umang Corado CATERING MANAGER Unavailable Johana Lizarraga MD Primary Care Provider Chanda Soria NP Unavailable Susie Starr DO Primary Care Provider Johana Lizarraga MD Primary Care Provider Susie Starr DO Primary Care Provider Phil Rodriguez MD Primary Care Provider Unavail able Susie Starr DO Primary Care Provider [phone] Loreto Albert MD Unavailable [phone] Lizbeth Schilling APRN Primary Care Provider Susie Starr DO Primary Care Provider [phone] Encounter Details Date Type Department Care Team Description 02/17/2022 Hospital Medical Records [address] [place] [address] Social History Tobacco Use Types Packs/Day Years [...] How often do you attend chur or yarsani services? More than 4 times [...] suspected to have Coronavirus/COVID-19? No / Unsure 02/11/2022 12:39 PM EDT documented as of this encounter Plan of Treatment Not on file documented as of this encounter Procedures Procedure Name Priority Date/Time Associated Diagnosis Comments OUTSIDE NUCLEAR STRESS TEST Routine 02/17/2022 OUTSIDE EKG Routine 02/16/2022 OUTSIDE PLAIN FILM Routine 02/16/2022 OUTSIDE LAB Routine 02/16/2022 documented in this encounter Results * OUTSIDE NUCLEAR STRESS TEST (02/17/2022) Provider Abstract CARDIOLOGY * OUTSIDE PLAIN FILM (02/16/2022) Provider Abstract RADIOLOGY * OUTSIDE LAB (02/16/2022) Provider Abstract LAB * OUTSIDE EKG (02/16/2022) Provider Abstract CARDIOLOGY documented in this encounter Visit Diagnoses Not on filedocumented in this encounter Care Teams Phlebotomy Support Tech Relationship Specialty Start Date End Date Ashley Rosado APRN PCP - General Internal Medicine 09/20/19 06/27/22 Johana Lizarraga MD [address] [place] [address] [place] [address] PCP - General Internal Medicine 06/28/22 11/30/22 Susie Starr, [address] [place] [address] PCP - General Internal Medicine 12/01/22 12/01/22 Johana Lizarraga MD [address] [place] [address] [place] [address] PCP - General Internal Medicine 12/02/22 12/29/22 Susie Starr, [address] [place] [address] PCP - General Internal Medicine 12/30/22 12/30/22 Phil Rodriguez MD [address] [place] [address] PCP - General Internal Medicine 01/04/23 01/10/23 Susie Starr, [address] [place] [address] PCP - General Internal Medicine 01/11/23 02/01/24 Lizbeth Schilling APRN [address] [place] [address] PCP - General Internal Medicine 02/02/24 02/11/24 RoSusie, DO [address] [place] [address] PCP - General Internal Medicine 02/12/24 Triston Bailey MD [address] [place] [address] [place] [address] Chemistry Physics Teacher Cardiovascular Disease 06/10/20 Remedios Warren PA [address] [place] [address] [place] [address] Cardiology 12/08/21 Umang Corado NP [address] [place] [address] [place] [address] Specialist Cardiology 02/23/22 Chanda Soria NP [address] [place] [address] [address] Cardiology 08/11/22 Loreto Albert MD [address] [place] [address] Internal Medicine 04/13/23 documented as of this encounter
--- OUTSIDE RECORDS SUMMARY | 2024-09-10 15:35 | XMS_ITS | Encounter Summary ---
Author Organization [facility] [place] [address] Care Team Providers Care Windows Desktop Engineer Name Role Phone Fernanda Robins MD Primary Care Provider [phone] Reason for Visit * Reason Onset Date Comments Fitting for DME 09/04/2024 Encounter Details Date Type Department Care Team (Late st Contact Info) Description 09/04/2024 Telephone Internal Medicine - [place] [address] [facility] [place] [phone] Jake Agudelo MA Fitting for DME Social History Tobacco Use Types Packs/Day Years [...] for your loved ones. For example, child therapist or elderly care for an older adult? [...] AM EDT Sexual Orientation Not on file documented as of this encounter Progress Notes * Jake Agudelo MA - 09/06/2024 4:12 PM EDT Home Care Delivered was notified / awaitin medical necessity form [facility] * Jake Agudelo MA - 09/04/2024 1:12 PM EDT Patient walked in asking for a prior auth letter to be sent to Home Care Delivered for her [employer]'s documented in this encounter Plan of Treatment Upcoming Encounters Date Type Department Care Team ([facility] st Contact Info) Description 09/11/2024 1:30 PM EDT Consult Orthopedic Surgery - [address] [place] [address] Mao Mitchell MD 175 [facility] 140 [place] [address] 09/12/2024 11:30 AM EDT Office Visit Pulmonolgy - [address] 200 [place] [address] Denia Mcdonnell MD [address] [address] 09/30/2024 2:45 PM EDT Consult General Surgery - [address] 110 [place] [address] Sarthak Ren MD [address] [address] 10/11/2024 1:00 PM EDT [facility] [address] [place] [address] Deya Henriquez NP [address] [place] [address] 10/28/2024 11:15 AM EDT [facility] [address] [place] [address] Deya Henriquez NP [address] [place] [address] 10/31/2024 2:00 PM EDT Office Visit Endocrinology [address] [address] Sarah Cobian PA [address] [place], [place] 11/26/2024 1:00 PM EDT Office Visit Internal Medicine - [facility] 305 [place], [place] [phone] Fernanda Robins MD 305 [place], [place] documented as of this encounter Visit Diagnoses Not on filedocumented in this encounter Additional Health Concerns Assessment Noted Time PHQ-9 Depression Total Score: 1 07/26/19 2:23 PM EDT documented as of this encounter Care Teams Windows Desktop Engineer Relationship Specialty Start Date End Date Fernanda Robins MD [address] [place] [address] PCP - General Internal Medicine 08/22/24 documented as of this encounter
--- OUTSIDE RECORDS SUMMARY | 2024-09-10 15:35 | XMS_ITS | Encounter Summary ---
Author Organization [facility] Address [address] [place] [address] Care Team Providers Care Medical Editor Name Role Phone Fernanda Robins MD Primary Care Provider [phone] Reason for Visit * Reason Onset Date Comments DME Request 09/10/2024 Home Care Zach abernathy Encounter Details Date Type Department Care Team (Late st Contact Info) Description 09/10/2024 Telephone Internal Medicine - [facility] [address] [place] [address] Fernanda Robins MD [address] [place] [address] DME Request (Home Care Delivered ) Social History Tobacco Use Types Packs/Day Years [...] Record ed Within the last 3 months, willard napier many times did you visit the emergency [...] care for your loved ones. For example, assistant child care teacher or elderly care for an older adult? [...] as of this encounter Progress Notes * Clare Stevenson - 09/10/2024 12:20 PM EDT Orders from Home Care Delivered placed in DME bin. Please complete and fax back to [phone]. Thank you. documented in this encounter Plan of Treatment Upcoming Encounters Date Type Department Care Team (Late st Contact Info) Description 09/11/2024 1:30 PM EDT Consult Orthopedic Surgery - [place] 175 [facility] 140 [place] [phone] Mao Mitchell MD 175 [facility] 140 [place] [address] 09/12/2024 11:30 AM EDT Office Visit Pulmonolgy - [place] 175 [facility] 200 [place] [phone] Denia Mcdonnell MD 175 [facility] 200 [place] [address] 09/30/2024 2:45 PM EDT Consult General Surgery - [address] 110 [place] [phone] Sarthak Ren MD 175 [facility] 110 [place] [address] 10/11/2024 1:00 PM EDT [facility] [address] [place] [address] Deya Henriquez NP [address] [place] [address] 10/28/2024 11:15 AM EDT Office Visit [facility] [address] [place] [address] Deya Henriquez NP [address] [place] [address] 10/31/2024 2:00 PM EDT Office Visit Endocrinology - [address] [phone] Sarah Cobian PA [address] [place] [address] 11/26/2024 1:00 PM EDT Office Visit Internal Medicine - [facility] 305 [facility] [place] [address] Fernanda Robins MD [address] documented as of this encounter Visit Diagnoses Not on filedocumented in this encounter Additional Health Concerns Assessment Noted Time PHQ-9 Depression Total Score: 1 07/26/19 2:23 PM EDT documented as of this encounter Care Teams Medical Editor Relationship Specialty Start Date End Date Fernanda Robins MD S[place] PCP - General Internal Medicine 08/22/24 documented as of this encounter
--- OUTSIDE RECORDS SUMMARY | 2024-09-10 15:35 | XMS_ITS | Encounter Summary ---
Author Organization [facility] Address [address] [place] [address] Care Team Providers Care Cylinder Head Assembler Name Role Phone Phil Rodriguez MD Primary Care Provider Unavail able Tony Rodriguez MD Primary Care Provider Unavail able Phil Rodriguez MD Primary Care Provider Unavail able Ashley Rosado APRN Primary Care Provider Unav ailable Triston Bailey MD Unavailable [phone] Remedios Warren Unavailable Unavailable Umang Corado RAILWAY STATION MANAGER Unavailable Johana Lizarraga MD Primary Care Provider Chanda Soria RAILWAY STATION MANAGER Unavailable Susie Starr DO Primary Care Provider Johana Lizarraga MD Primary Care Provider Susie Starr DO Primary Care Provider Phil Rodriguez MD Primary Care Provider Unavail able Susie Starr DO Primary Care Provider Loreto Albert MD Unavailable [phone] Lizbeth Schilling APRN Primary Care Provider [phone] Susie Starr DO Primary Care Provider [phone] Encounter Details Date Type Department Care Team Description 08/16/2010 Editor & Co Founder Report Medical Records [address] [place] [address] Barrett Ferrari PA-C [address] [place] [address], [place] [address] Social History Tobacco Use Types Packs/Day Years [...] [facility] you attend [facility] or hoahaoism services? More than 4 times per year 04/13/2023 Do you belong to any clubs o r organizations such as christian groups, unions, fraternal or athletic groups, or [...] on filedocumented in this encounter Care Teams Cylinder Head Assembler Relationship Specialty Start Date End Date Phil Rodriguez MD PCP - General 03/07/05 12/04/14 Tony Rodriguez MD PCP - General Internal Medicine 12/05/14 12/14/14 Phil Rodriguez MD PCP - General Internal Medicine 12/15/14 09/19/19 Ashley Rosado APRN PCP - General Internal Medicine 09/20/19 06/27/22 Johana Liz[place]aga [place] [address] PCP - General Internal Medicine 06/28/22 11/30/22 [facility], [address] [place] [address] PCP - General Internal Medicine 12/01/22 12/01/22 Johana Lizarraga [place] [address] PCP - General Internal Medicine 12/02/22 12/29/22 [facility], [address] [place] [address] PCP - General Internal Medicine 12/30/22 12/30/22 Phil Rodriguez MD PCP - General Internal Medicine 01/04/23 01/10/23 [facility], [address] [place] [address] PCP - General Internal Medicine 01/11/23 02/01/24 Lizbeth Schilling APRN [address] [place] [address] PCP - General Internal Medicine 02/02/24 02/11/24 [facility], [address] [place] [address] PCP - General Internal Medicine 02/12/24 Triston Bailey [place] [address] Metal Fitter Cardiovascular Disease 06/10/20 Remedios Warren PA [address] [place] [address] Dr Hui [address] [place] [address] Cardiology 12/08/21 Umang Corado NP [address] [place] [address] Dr Hui [address] [place] [address] Specialist Cardiology 02/23/22 Chanda Soria NP [address] [place] [address] [address] Hui [address] [place] [address] Cardiology 08/11/22 Loreto Albert MD [address] [place] [address] Internal Medicine 04/13/23 documented as of this encounter
--- OUTSIDE RECORDS SUMMARY | 2024-09-10 15:35 | XMS_ITS | Encounter Summary ---
Author Organization [facility] Address [address] [place] [address] Care Team Providers Care Staking Press Operator Name Role Phone Ashley Rosado APRN Primary Care Provider Unav Triston Jaffe MD Unavailable [phone] Remedios Warren Unavailable Unavailable Umang Corado DEATH CLAIM EXAMINER Unavailable Johana Lizarraga MD Primary Care Provider Chanda Soria NP Unavailable Susie Starr DO Primary Care Provider Johana Lizarraga MD Primary Care Provider Susie Starr DO Primary Care Provider hPil Rodriguez MD Primary Care Provider Unavail able Susie Starr DO Primary Care Provider Loreto Albert MD Unavailable [phone] Lizbeth Schilling APRN Primary Care Provider [phone] Susie Starr DO Primary Care Provider [phone] Reason for Visit * Reason Onset Date Comments refill request 07/06/2021 Encounter Details Date Type Department Care Team Description 07/06/2021 Refill Adult [facility] [address] [place] [address] Ashley Rosado APRN refill request Social History [...] week 04/13/2023 How often do you attend [facility] or nondenominational services? More than 4 [...] have Coronavirus / COVID-19? No / Unsure 07/08/2021 2:38 PM EDT documented as of this encounter Miscellaneous Notes * Telephone Encounter - Desiree Benites M.A. - 07/06/2021 2:39 PM EDT Faxed to pharmacy * Telephone Encounter - Silvia Rose M.A. - 07/06/2021 1:23 PM EDT Date of last office visit was 04/19/21. Pended appt for 07/08/21 /Controlled substance contract and last issue date of medication reviewed. Patient is due for medication. Lab Results Component Value Date URBENZO NONE DETECTED 04/26/2021 UROPIATES POSITIVE 04/26/2021 UROXYCODONE NONE DETECTED 04/26/2021 URBARBITUATE NONE DETECTED 04/26/2021 PAINAMPHETAM NONE DETECTED 04/26/2021 PAINCOCAINE NONE DETECTED 04/26/2021 PAINCANNABIN NONE DETECTED 04/26/2021 * Telephone Encounter - Vidhya Nicholas - 07/06/2021 11:48 AM EDT Patient would like script to be: E-PRESCRIBED/FAXED TO PHARMACY WHEN WAS THE PATIENT'S LAST APPOINTMENT IN ADULT MEDICINE? 04/19/21 WHEN WAS THE LAST TIME THE PATIENT SAW THEIR PCP? Same as above Does patient have an upcoming appointment? Yes 07/08/21 (THE MEDICATION REQUESTED IS ON THE MED [...] N/A Patients current insurance carrier is: Payor: [facility] M[facility] / Plan: [facility] $0 [facility] [id number] / Product Type: O [id number] documented in this encounter Plan of Treatment Not on file documented as of this encounter Visit Diagnoses Not on filedocumented in this encounter Care Teams Staking Press Operator Relationship Specialty Start Date End Date Ashley Rosado APRN PCP - General Internal Medicine 09/20/19 06/27/22 Johana Lizarraga MD [address] [place] [address] [place] [address] PCP - General Internal Medicine 06/28/22 11/30/22 Lisa Starrmana, DO [address] [place] [address] PCP - General Internal Medicine 12/01/22 12/01/22 Johana Lizarraga MD [address] [place] [address] [place] [address] PCP - General Internal Medicine 12/02/22 12/29/22 Zacharyjames Susie, DO [address] [place] [address] PCP - General Internal Medicine 12/30/22 12/30/22 Phil Rodriguez MD [address] [place] [address] PCP - General Internal Medicine 01/04/23 01/10/23 [facility] [address] [place] [address] PCP - General Internal Medicine 01/11/23 02/01/24 Lizbeth Schilling APRN [address] [place] [address] PCP - General Internal Medicine 02/02/24 02/11/24 Lisa Starrmana, DO [address] [place] [address] PCP - General Internal Medicine 02/12/24 Triston Bailey MD [address] [place] [address] [place] [address] Driver/Sales Workers Cardiovascular Disease 06/10/20 Remedios Warren PA [address] [place] [address] [place] [address] Cardiology 12/08/21 Umang Corado NP [address] [place] [address] [place] [address] Specialist Cardiology 02/23/22 Chanda Soria NP [address] [place] [address] [place] [address] Cardiology 08/11/22 Loreto Albert MD [address] [place] [address] Internal Medicine 04/13/23 documented as of this encounter
--- OUTSIDE RECORDS SUMMARY | 2024-09-10 15:35 | XMS_ITS | Encounter Summary ---
Author Organization [facility] Address [address] [place] [address] Care Team Providers Care Meat Stocker Name Role Phone Triston Bailey MD Unavailable [phone] Remedios Warren Unavailable Unavailable Umang Corado PAIRING MACHINE OPERATOR Unavailable Chanda Soria NP Unavailable [phone] Susie Starr DO Primary Care Provider Loreto Albert MD Unavailable [phone] Lizbeth Schilling APRN Primary Care Provider [phone] Susie Starr DO Primary Care Provider [phone] Encounter Details Date Type Department Care Team Description 11/29/2023 Orders Only Medical Records [address] [place] [address] Lizbeth Schilling APRN [address] [place], [place] [id number] Social History Tobacco Use Types Packs/Day Years [...] How often do you attend chur or amish services? More than 4 times per year 04/13/2023 Do you belong to any clubs o r organizations such as baptism groups, unions, fraKasenna or athletic groups, or school groups? No [...] on filedocumented in this encounter Care Teams Meat Stocker Relationship Specialty Start Date End Date Susie Starr, [address] [place] [address] PCP - General Internal Medicine 01/11/23 02/01/24 Lizbeth Schilling APRN [address] [place] [address] PCP - General Internal Medicine 02/02/24 02/11/24 Susie Starr DO [address] [place] [address] PCP - General Internal Medicine 02/12/24 Triston Bailey MD [address] [place] [address] [place] [address] Cage Operator Cardiovascular Disease 06/10/20 Remedios Warren PA [address] [place] [address] [place] [address] Cardiology 12/08/21 Umang Corado NP [address] [place] [address] [place] [address] Specialist Cardiology 02/23/22 Chanda Soria NP [address] [place] [address] [address] Cardiology 08/11/22 Loreto Albert MD [address] [place] [address] Internal Medicine 04/13/23 documented as of this encounter
--- OUTSIDE RECORDS SUMMARY | 2024-09-10 15:35 | XMS_ITS | Encounter Summary ---
Author Organization [facility] [place] [address] Care Team Providers Care Technical Operations Vice President Name Role Phone Fernanda Robins MD Primary Care Provider [phone] Encounter Details Date Type Department Care Team (Late st Contact Info) Description 09/06/2024 Telephone [facility] [address] [place] [address] Dr Min [address] [place] [address] Umang Corado NP [address] [place] [address] Dr Hui [address] [place] [address] Social History Tobacco Use Types Packs/Day Years [...] care for your loved ones. For example, children's tutor nursery or elderly care for an older adult? [...] as of this encounter Progress Notes * Cheryl Olmos MA - 09/06/2024 12:30 PM EDT Called and spoke to patient and let her know results below. * Umang Corado NP - 09/06/2024 11:45 AM EDT Please let her know that the stress test was normal. No changes for now. documented in this encounter Plan of Treatment Upcoming Encounters Date Type Department Care Team ([facility] st Contact Info) Description 09/11/2024 1:30 PM EDT Consult Orthopedic Surgery - [place] 175 [facility] 140 [place] [phone] Mao Mitchell MD [address] [address] 09/12/2024 11:30 AM EDT Office Visit Pulmonolgy - [address] [place] [address] Denia Mcdonnell MD [address] [address] 09/30/2024 2:45 PM EDT Consult General Surgery - [address] [place] [phone] Sarthak Ren MD [address] [address] 10/11/2024 1:00 PM EDT [facility] [address] [place] [address] Deya Henriquez NP [address] [place] [address] 10/28/2024 11:15 AM EDT Office [facility] [address] [place] [address] Deya Henriquez NP [address] [place] [address] 10/31/2024 2:00 PM EDT Office Visit [address] [address] Sarah Cobian PA 305 [facility] [place] 11/26/2024 1:00 PM EDT Office Visit Internal Medicine - [address] [place] [phone] Fernanda Robins MD 305 [facility] [place] [place] documented as of this encounter Visit Diagnoses Not on filedocumented in this encounter Additional Health Concerns Assessment Noted Time PHQ-9 Depression Total Score: 1 07/26/19 2:23 PM EDT documented as of this encounter Care Teams Technical Operations Vice President Relationship Specialty Start Date End Date Fernanda Robins MD [address] [place], [place] [address] PCP - General Internal Medicine 08/22/24 documented as of this encounter
--- OUTSIDE RECORDS SUMMARY | 2024-09-10 15:35 | XMS_ITS | Encounter Summary ---
Author Organization [facility] Address [address] [place] [address] Care Team Providers Care Medical Language Specialist Name Role Phone Triston Bailey MD Unavailable [phone] Remedios Warren Unavailable Unavailable Umang Corado HOUSE CARPENTER HELPER Unavailable [phone] Chanda Soria NP Unavailable [phone] Susie Starr DO Primary Care Provider [phone] Loreto Albert MD Unavailable [phone] Lizbeth Schilling APRN Primary Care Provider [phone] Susie Starr DO Primary Care Provider [phone] Encounter Details Date Type Department Care Team Description 06/08/2023 Bankruptcy Law Specialist Report Medical Records [address] [place] [address] Long Metz MD Social History Tobacco Use [...] week 04/13/2023 [facility] services? More than 4 times per year [...] filedocumented in this encounter Care Teams Medical Language Specialist Relationship Specialty Start Date End Date Susie Starr, [address] [place] [address] PCP - General Internal Medicine 01/11/23 02/01/24 Lizbeth Schilling APRN [address] [place] [address] PCP - General Internal Medicine 02/02/24 02/11/24 Susie Starr DO [address] [place] [address] PCP - General Internal Medicine 02/12/24 Triston Bailey MD [address] [place] [address] [place] [address] Child Psychiatrist Cardiovascular Disease 06/10/20 Remedios Warren PA [address] [place] [address] Dr [address] [place] [address] Cardiology 12/08/21 Umang Corado NP [address] [place] [address] Dr Hui [address] [place] [address] Specialist Cardiology 02/23/22 Chanda Soria NP [address] [place] [address] [address] Cardiology 08/11/22 Loreto Albert MD 4 [place] [address] Internal Medicine 04/13/23 documented as of this encounter
--- OUTSIDE RECORDS SUMMARY | 2024-09-10 15:35 | XMS_ITS | Encounter Summary ---
Author Organization [facility] Address [address] [place] [address] Care Team Providers Care Road Test Examiner Name Role Phone Phil Rodriguez MD Primary Care Provider Unavail able Tony Rodriguez MD Primary Care Provider Unavail able Phil Rodriguez MD Primary Care Provider Unavail able Ashley Rosado APRN Primary Care Provider Unav ailable Triston Bailey MD Unavailable [phone] Remedios Warren Unavailable Unavailable Umang Corado CUTTER ALUMINUM SHEET Unavailable Johana Lizarraga MD Primary Care Provider Chanda Soria CUTTER ALUMINUM SHEET Unavailable Susie Starr DO Primary Care Provider [phone] Johana Lizarraga MD Primary Care Provider Susie Starr DO Primary Care Provider [phone] Phil Rodriguez MD Primary Care Provider Unavail able Susie Starr DO Primary Care Provider [phone] Loreto Albert MD Unavailable [phone] Lizbeth Schilling APRN Primary Care Provider Susie Starr DO Primary Care Provider [phone] Reason for Visit * Reason Onset Date Comments CSC Pill Count 10/18/2010 Encounter Details Date Type Department Care Team Description 10/18/2010 Telephone Adult Medicine [address] [address] Phil Rodriguez MD [facility] Pill Count Social History Tobacco Use Types [...] week 04/13/2023 How often do you attend [facility] or mormonism services? More than 4 times [...] Last RX for Lorazepam filled on 10/11/2010 [id number] Si-2 tabs twice daily Expected remaining tablets: [...] on filedocumented in this encounter Care Teams Road Test Examiner Relationship Specialty Start Date End Date Phil Rodriguez MD PCP - General 03/07/05 12/04/14 Tony Rodriguez MD PCP - General Internal Medicine 12/05/14 12/14/14 Phil Rodriguez MD PCP - General Internal Medicine 12/15/14 09/19/19 Ashley Rosado APRN PCP - General Internal Medicine 09/20/19 06/27/22 Johana Lizarraga MD [address] [place] [address] Dr [address]ui [address] [place] [address] PCP - General Internal Medicine 06/28/22 11/30/22 Susie Starr, DO [address] [place] [address] PCP - General Internal Medicine 12/01/22 12/01/22 Johana Lizarraga MD [address] [place] [address] [place] [address] PCP - General Internal Medicine 12/02/22 12/29/22 [facility], [address] [place] [address] PCP - General Internal Medicine 12/30/22 12/30/22 Phil Rodriguez MD PCP - General Internal Medicine 01/04/23 01/10/23 [facility], [address] [place] [address] PCP - General Internal Medicine 01/11/23 02/01/24 Lizbeth Schilling, PACKING ROOM INSPECTOR [address] [place] [address] PCP - General Internal Medicine 02/02/24 02/11/24 [facility], [address] [place] [address] PCP - General Internal Medicine 02/12/24 Triston Bailey MD [address] [place] [address] [place] [address] Burning Plant Operator Cardiovascular Disease 06/10/20 Remedios Warren PA [address] [place] [address] [place] [address] Cardiology 12/08/21 Umang Corado NP [address] [place] [address] [place] [address] Specialist Cardiology 02/23/22 Chanda Soria NP [address] [place] [address] [address] Hui [address] [place] [address] Cardiology 08/11/22 Loreto Albert MD [address] [place] [address] Internal Medicine 04/13/23 documented as of this encounter
--- OUTSIDE RECORDS SUMMARY | 2024-09-10 15:35 | XMS_ITS | Encounter Summary ---
Author Organization [facility] Address [address] [place] [address] Care Team Providers Care Build And Deployment Engineer Name Role Phone Triston Bailey MD Unavailable [phone] Remedios Warren Unavailable Unavailable Umang Corado ZIPPER LINING FOLDER Unavailable Chanda Soria NP Unavailable [phone] Susie Starr DO Primary Care Provider Loreto Albert MD Unavailable [phone] Lizbeth Schilling APRN Primary Care Provider Susie Starr DO Primary Care Provider Encounter Details Date Type Department Care Team Description 06/27/2023 Orders Only Cardio PVC POC [address] [facility] [address] [place], [place] [id number] Default, Provider Social History Tobacco Use Types Packs/Day [...] do you attend [facility] or taoist services? More than 4 times per year 04/13/2023 Do you belong to any clubs o r organizations such as sabianism groups, unions, fraternal or athletic groups, or [...] Date/Time Associated Diagnosis Comments OUTSIDE LAB Routine 06/22/2023 documented in this encounter Results * OUTSIDE LAB (06/22/2023) Provider Default LAB documented in this encounter Visit Diagnoses Not on filedocumented in this encounter Care Teams Build And Deployment Engineer Relationship Specialty Start Date End Date Susie Starr, [address] [place] [address] PCP - General Internal Medicine 01/11/23 02/01/24 Lizbeth Schilling APRN [address] [place] [address] PCP - General Internal Medicine 02/02/24 02/11/24 Susie Starr, [address] [place] [address] PCP - General Internal Medicine 02/12/24 Triston Bailey MD [address] [place] [address] [place] [address] Detective Sergeant Cardiovascular Disease 06/10/20 Remedios Warren PA [address] [place] [address] [place] [address] Cardiology 12/08/21 Umang Corado NP [address] [place] [address] [place] [address] Specialist Cardiology 02/23/22 Chanda Soria NP [address] [place] [address] [place] [address] Cardiology 08/11/22 Loreto Albert MD [address] [place] [address] Internal Medicine 04/13/23 documented as of this encounter
--- OUTSIDE RECORDS SUMMARY | 2024-09-10 15:35 | XMS_ITS | Encounter Summary ---
Author Organization [facility] Address [address] [place] [address] Care Team Providers Care Floral Associate Name Role Phone Ashley Rosado APRN Primary Care Provider Triston Franks MD Unavailable [phone] Remedios Warren Unavailable Unavailable Umang Corado MANAGER HEMATOLOGY Unavailable Johana Lizarraga MD Primary Care Provider Chanda Soria NP Unavailable Susie Starr DO Primary Care Provider Johana Lizarraga MD Primary Care Provider Susie Starr DO Primary Care Provider Phil Rodriguez MD Primary Care Provider Unavail able Susie Starr DO Primary Care Provider [phone] Loreto Albert MD Unavailable [phone] Lizbeth Schilling APRN Primary Care Provider Susie Starr DO Primary Care Provider [phone] Encounter Details Date Type Department Care Team Description 09/06/2021 SCAN Medical Records [address] [place] [address] Abstract, Provider Social History Tobacco Use Types [...] How often do you attend [facility] or pentecostal services? More than 4 times per year 04/13/2023 Do you belong to any clubs o r organizations such as buddhism groups, unions, fraternal or athletic groups, or [...] on filedocumented in this encounter Care Teams Floral Associate Relationship Specialty Start Date End Date Ashley Rosado APRN PCP - General Internal Medicine 09/20/19 06/27/22 Johana Lizarraga MD [address] [place] [address] [place] [address] PCP - General Internal Medicine 06/28/22 11/30/22 Susie Starr, [address] [place] [address] PCP - General Internal Medicine 12/01/22 12/01/22 Johana Lizarraga MD [address] [place] [address] [place] [address] PCP - General Internal Medicine 12/02/22 12/29/22 [facility] [place], [address] [place] [address] PCP - General Internal Medicine 12/30/22 12/30/22 Phil Rodriguez MD [address] [place] [address] PCP - General Internal Medicine 01/04/23 01/10/23 [facility] [place], [address] [place] [address] PCP - General Internal Medicine 01/11/23 02/01/24 Lizbeth Schilling, MELISSA [address] [place] [address] PCP - General Internal Medicine 02/02/24 02/11/24 [facility] [place], [address] [place] [address] PCP - General Internal Medicine 02/12/24 Triston Bailey [place] [address] Varnish Filterer Cardiovascular Disease 06/10/20 Remedios Warren PA [address] [facility] [place] [address] Cardiology 12/08/21 Umang Corado NP [address] [facility] [place] [address] Specialist Cardiology 02/23/22 Chanda Soria NP [address] [place] [address] Cardiology 08/11/22 Loreto Albert MD [address] [place] [address] Internal Medicine 04/13/23 documented as of this encounter
--- OUTSIDE RECORDS SUMMARY | 2024-09-10 15:35 | XMS_ITS | Encounter Summary ---
Author Organization [facility] Address [address] [place] [address] Care Team Providers Care Envelope Addresser Name Role Phone Phil Rodriguez MD Primary Care Provider Unavail able Ashley Rosado APRN Primary Care Provider Unav ailable Triston Bailey MD Unavailable [phone] Remedios Warren PA Unavailable Unavailable Umang Corado NP Unavailable Johana Lizarraga MD Primary Care Provider Chanda Soria STAGECRAFT TEACHER Unavailable Susie Starr DO Primary Care Provider Johana Lizarraga MD Primary Care Provider Susie Starr DO Primary Care Provider Phil Rodriguez MD Primary Care Provider Unavail able Susie Starr DO Primary Care Provider [phone] Loreto Albert MD Unavailable [phone] Lizbeth Schilling APRN Primary Care Provider [phone] Susie Satrr DO Primary Care Provider [phone] Encounter Details Date Type Department Care Team Description 02/06/2019 Qa Automation Developer Report Medical Records [address] [place] [address] Philip Anthony MD Social History Tobacco Use [...] 04/13/2023 How often do you attend [facility] or nondenominational services? More than 4 times per year 04/13/2023 Do you belong to any clubs o r organizations such as scientology groups, unions, fraternal or athletic groups, or [...] on filedocumented in this encounter Care Teams Envelope Addresser Relationship Specialty Start Date End Date Phil Rodriguez MD PCP - General Internal Medicine 12/15/14 09/19/19 Ashley Rosado APRN PCP - General Internal Medicine 09/20/19 06/27/22 Johana Lizarraga MD [address] [place] [address] Dr [place], [place] [address] PCP - General Internal Medicine 06/28/22 11/30/22 Susie Starr, DO [address] [place] [address] PCP - General Internal Medicine 12/01/22 12/01/22 Johana Lizarraga MD [address] [place] [address] [place] [address] PCP - General Internal Medicine 12/02/22 12/29/22 [facility] [address] [place] [address] PCP - General Internal Medicine 12/30/22 12/30/22 Phil Rodriguez MD PCP - General Internal Medicine 01/04/23 01/10/[address] [address] PCP - General Internal Medicine 01/11/23 02/01/24 Lizbeth Schilling, MATTRESS PACKER [address] [place] [address] PCP - General Internal Medicine 02/02/24 02/11/[address] [address] PCP - General Internal Medicine 02/12/24 Triston Bailey MD [address] [place] [address] [place] [address] Research Biologist Cardiovascular Disease 06/10/20 Remedios Warren PA [address] [place] [address] Cardiology 12/08/21 Umang Corado NP [address] [place] [address] [place] [address] Specialist Cardiology 02/23/22 Chanda Soria NP [address] [place] [address] [place] [address] Cardiology 08/11/22 Loreto Albert MD [address] [place] [address] Internal Medicine 04/13/23 documented as of this encounter
--- OUTSIDE RECORDS SUMMARY | 2024-09-10 15:35 | XMS_ITS | Encounter Summary ---
Author Organization [facility] Address [address] [place] [address] Care Team Providers Care Auditor/Quality Name Role Phone Ashley Rosado APRN Primary Care Provider Unav Triston Jaffe MD Unavailable Remedios Warren Unavailable Unavailable Umang Corado INTELLECTUAL PROPERTY LAWYER Unavailable Johana Lizarraga MD Primary Care Provider Chanda Soria NP Unavailable Susie Starr DO Primary Care Provider Johana Lizarraga MD Primary Care Provider Susie Starr DO Primary Care Provider Phil Rodriguez MD Primary Care Provider Unavail able Susie Starr DO Primary Care Provider Loreto Albert MD Unavailable [phone] Lizbeth Schilling APRN Primary Care Provider Susie Starr DO Primary Care Provider [phone] Encounter Details Date Type Department Care Team Description 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 More than 4 times per year 04/13/2023 Do you belong to any clubs o r organizations such as muslim groups, unions, fraternal or athletic groups, or [...] on filedocumented in this encounter Care Teams Auditor/Quality Relationship Specialty Start Date End Date Ashley Rosado APRN PCP - General Internal Medicine 09/20/19 06/27/22 Johana Lizarraga MD [address] [place] [address] [place] [address] PCP - General Internal Medicine 06/28/22 11/30/22 Susie Starr DO [address] [place] [address] [place] [address] PCP - General Internal Medicine 12/01/22 12/01/22 Johana Lizarraga MD [address] [place] [address] [place] [address] PCP - General Internal Medicine 12/02/22 12/29/22 [facility], [address] [place] [address] PCP - General Internal Medicine 12/30/22 12/30/22 Phil Rodriguez MD [address] [place] [address] PCP - General Internal Medicine 01/04/23 01/10/23 [facility], [address] [place] [address] PCP - General Internal Medicine 01/11/23 02/01/24 Lizbeth Schilling, CARTRIDGE LOADING OPERATOR [address] [place] [address] PCP - General Internal Medicine 02/02/24 02/11/24 [facility], [address] [place] [address] PCP - General Internal Medicine 02/12/24 Triston Bailey MD [address] [place] [address] [place] [address] Catering Sales Manager Cardiovascular Disease 06/10/20 Remedios Warren, PA [address] [place] [address] [place] [address] Cardiology 12/08/21 Umang Corado NP [address] [place] [address] [place] [address] Specialist Cardiology 02/23/22 Chanda Soria NP [address] [place] [address] Cardiology 08/11/22 Loreto Albert MD [address] [place] [address] Internal Medicine 04/13/23 documented as of this encounter
--- OUTSIDE RECORDS SUMMARY | 2024-09-10 15:35 | XMS_ITS | Encounter Summary ---
Author Organization [facility] Address [address] [place] [address] Care Team Providers Care Ice Cream Shop Associate Name Role Phone Phil Rodriguez MD Primary Care Provider Unavail able Ashley Rosado APRN Primary Care Provider Unav ailable Triston Bailey MD Unavailable Remedios Warren PA Unavailable Unavailable Umang Corado ONLINE RETAILER Unavailable Johana Lizarraga MD Primary Care Provider Chanda Soria ONLINE RETAILER Unavailable Susie Starr DO Primary Care Provider Johana Lizarraga MD Primary Care Provider Susie Starr DO Primary Care Provider Phil Rodriguez MD Primary Care Provider Unavail able Susie Starr DO Primary Care Provider [phone] Loreto Albert MD Unavailable [phone] Lizbeth Schilling APRN Primary Care Provider [phone] Susie Starr DO Primary Care Provider [phone] Encounter Details Date Type Department Care Team Description 12/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 More than 4 [...] on filedocumented in this encounter Care Teams Ice Cream Shop Associate Relationship Specialty Start Date End Date Phil Rodriguez MD PCP - General Internal Medicine 12/15/14 09/19/19 Ashley Rosado APRN PCP - General Internal Medicine 09/20/19 06/27/22 Johana Lizarraga MD [address] [place] [address] Dr [place], [place] [address] PCP - General Internal Medicine 06/28/22 11/30/22 Susie Starr, DO [address] [place] [address] PCP - General Internal Medicine 12/01/22 12/01/22 Johana Lizarraga MD [address] [place] [address] [place] [address] PCP - General Internal Medicine 12/02/22 12/29/22 [facility] [address] [place] [address] PCP - General Internal Medicine 12/30/22 12/30/22 Phil Rodriguez MD PCP - General Internal Medicine 01/04/23 01/10/[address] [address] PCP - General Internal Medicine 01/11/23 02/01/24 Lizbeth Schilling, CUSTOMER SECURITY CLERK [address] [place] [address] PCP - General Internal Medicine 02/02/24 02/11/[address] [address] PCP - General Internal Medicine 02/12/24 Triston Bailey MD [address] [place] [address] [place] [address] Bee Raiser Cardiovascular Disease 06/10/20 Remedios Warren PA [address] [place] [address] Cardiology 12/08/21 Umang Corado NP [address] [place] [address] [place] [address] Specialist Cardiology 02/23/22 Chanda Soria NP [address] [place] [address] [place] [address] Cardiology 08/11/22 Loreto Albert MD [address] [place] [address] Internal Medicine 04/13/23 documented as of this encounter
--- OUTSIDE RECORDS SUMMARY | 2024-09-10 15:35 | XMS_ITS | Encounter Summary ---
Author Organization [facility] Address [address] [place] [address] Care Team Providers Care Food Service Lead Name Role Phone Ashley Rosado APRN Primary Care Provider Triston Frnaks MD Unavailable Remedios Warren Unavailable Unavailable Umang Corado WINE FERMENTER Unavailable [phone] Johana Lizarraga MD Primary Care Provider Chanda Soria NP Unavailable Susie Starr DO Primary Care Provider Johana Lizarraga MD Primary Care Provider Susie Starr DO Primary Care Provider Phil Rodriguez MD Primary Care Provider Unavail able Susie Starr DO Primary Care Provider [phone] Loreto Albert MD Unavailable [phone] Lizbeth Schilling APRN Primary Care Provider Susie Starr DO Primary Care Provider [phone] Encounter Details Date Type Department Care Team Description 11/17/2021 SCAN Cardio PVC [facility] [address] [place] [address] Social History Tobacco Use Types Packs/Day Years [...] you attend [facility] or holiness services? More than 4 [...] on filedocumented in this encounter Care Teams Food Service Lead Relationship Specialty Start Date End Date Ashley Rosado APRN PCP - General Internal Medicine 09/20/19 06/27/22 Johana Lizarraga MD [address] [place] [address] [place] [address] PCP - General Internal Medicine 06/28/22 11/30/22 [facility], [address] [place] [address] PCP - General Internal Medicine 12/01/22 12/01/22 Johana Lizarraga MD [address] [place] [address] [place] [address] PCP - General Internal Medicine 12/02/22 12/29/22 [facility], [address] [place] [address] PCP - General Internal Medicine 12/30/22 12/30/22 Phil Rodriguez MD [address] [place] [address] PCP - General Internal Medicine 01/04/23 01/10/23 [facility], [address] [place] [address] PCP - General Internal Medicine 01/11/23 02/01/24 Lizbeth Schilling, MELISSA [address] [place] [address] PCP - General Internal Medicine 02/02/24 02/11/24 [facility], [address] [place] [address] PCP - General Internal Medicine 02/12/24 Triston Bailey MD [address] [place] [address] [place] [address] Tourist Guide Cardiovascular Disease 06/10/20 Remedios Warren, PA [address] [place] [address] Cardiology 12/08/21 Umang Corado NP [address] [place] [address] Specialist Cardiology 02/23/22 Chanda Soria NP [address] [place] [address] Cardiology 08/11/22 Loreto Albert MD [address] [place] [address] Internal Medicine 04/13/23 documented as of this encounter
--- OUTSIDE RECORDS SUMMARY | 2024-09-10 15:35 | XMS_ITS | Encounter Summary ---
Author Organization [facility] Address [address] [place] [address] Care Team Providers Care Angiographer Name Role Phone Fernanda Robins MD Primary Care Provider [phone] Reason for Visit * Reason Onset Date Comments Returning call to Provider 09/06/2024 Encounter Details Date Type Department Care Team (Late st Contact Info) Description 09/06/2024 Telephone Internal Medicine - [facility] [address] [place] [address] Fernanda Robins MD [address] [place] [phone] Returning call to Provider Social History Tobacco Use Types Packs/Day [...] for your loved ones. For example, child care teacher or elderly care for [...] as of this encounter Progress Notes * Celina Silva - 09/06/2024 12:04 PM EDT Caller requesting call back from provider: Is the caller the patient? NO If caller is not the patient, what is the callers name? Riddhi Godoy Callers relationship to patient? [facility] Supervisor [employer] If person calling is not the patient themselves, is there a verbal release in FY or permanent comments for this person: Reason for call back: states she received a call from Deya Wooten asking her to return call ([facility]) Caller offered to speak with the nurse for assistance: Yes Response: [phone] ext [phone] documented in this encounter Plan of Treatment Upcoming Encounters Date Type Department Care Team (Late st Contact Info) Description 09/11/2024 1:30 PM EDT Consult Orthopedic Surgery [address] [phone] Mao Mitchell MD [address] [place] [address] 09/12/2024 11:30 AM EDT Office Visit Pulmonolgy - [address] [phone] Denia Mcdonnell MD [address] [address] 09/30/2024 2:45 PM EDT Consult General Surgery [address] [phone] Sarthak Ren MD [address] [place] [address] 10/11/2024 1:00 PM EDT [facility] [address] [place] [address] Deya Henriquez, IRON ERECTOR [address] [place] [address] 10/28/2024 11:15 AM EDT Office Visit Internal Medicine - [facility] [address] [place] [address] Deya Henriquez NP [address] [place] [address] 10/31/2024 2:00 PM EDT Office Visit Endocrinology - [place] [address] [place], [place] [phone] Sarah Cobian PA [address] [facility] [place] [address] 11/26/2024 1:00 PM EDT Office Visit Internal Medicine - [facility] [address] [facility] [place] [phone] Fernanda Robins MD [address] [place], [place] documented as of this encounter Visit Diagnoses Not on filedocumented in this encounter Additional Health Concerns Assessment Noted Time PHQ-9 Depression Total Score: 1 07/26/19 2:23 PM EDT documented as of this encounter Care Teams Angiographer Relationship Specialty Start Date End Date Fernanda Robins MD [address] [place], [place] [address] PCP - General Internal Medicine 08/22/24 documented as of this encounter
--- OUTSIDE RECORDS SUMMARY | 2024-09-10 15:35 | XMS_ITS | Encounter Summary ---
Author Organization [facility] Address [address] [place] [address] Care Team Providers Care Plastics Fabricator And Assembler Name Role Phone Phil Rodriguez MD Primary Care Provider Unavail able Ashley Rosado APRN Primary Care Provider Unav ailable Triston Bailey MD Unavailable Remedios Warren PA Unavailable Unavailable Umang Corado WEB MARKETING ASSISTANT Unavailable [phone] Johana Lizarraga MD Primary Care Provider Chanda Soria WEB MARKETING ASSISTANT Unavailable Susie Starr DO Primary Care Provider Johana Lizarraga MD Primary Care Provider Susie Starr DO Primary Care Provider Phil Rodriguez MD Primary Care Provider Unavail able Susie Starr DO Primary Care Provider [phone] Loreto Albert MD Unavailable [phone] Lizbeth Schilling APRN Primary Care Provider [phone] Susie Starr DO Primary Care Provider [phone] Encounter Details Date Type Department Care Team Description 04/28/2016 [employer]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 More than 4 times [...] on filedocumented in this encounter Care Teams Plastics Fabricator And Assembler Relationship Specialty Start Date End Date Phil Rodriguez MD PCP - General Internal Medicine 12/15/14 09/19/19 Ashley Rosado APRN PCP - General Internal Medicine 09/20/19 06/27/22 Johana Lizarraga MD [address] [place] [address] Dr [place], [place] [address] PCP - General Internal Medicine 06/28/22 11/30/22 Susie Starr, DO [address] [place] [address] PCP - General Internal Medicine 12/01/22 12/01/22 Johana Lizarraga MD [address] [place] [address] [place] [address] PCP - General Internal Medicine 12/02/22 12/29/22 [facility] [address] [place] [address] PCP - General Internal Medicine 12/30/22 12/30/22 Phil Rodriguez MD PCP - General Internal Medicine 01/04/23 01/10/[address] [address] PCP - General Internal Medicine 01/11/23 02/01/24 Lizbeth Schilling, LITIGATION SPECIALIST [address] [place] [address] PCP - General Internal Medicine 02/02/24 02/11/[address] [address] PCP - General Internal Medicine 02/12/24 Triston Bailey MD [address] [place] [address] [place] [address] [employer] Promotional Sales Cardiovascular Disease 06/10/20 Remedios Warren PA 2 [facility] [place] [address] Cardiology 12/08/21 Umang Corado NP [address] [place] [address] [place] [address] Specialist Cardiology 02/23/22 Chanda Soria NP [address] [place] [address] [place] [address] Cardiology 08/11/22 Loreto Albert MD [address] [place] [address] Internal Medicine 04/13/23 documented as of this encounter
--- OUTSIDE RECORDS SUMMARY | 2024-09-10 15:35 | XMS_ITS | Encounter Summary ---
Author Organization [facility] Address [address] [place] [address] Care Team Providers Care Child Development Professor Name Role Phone Ashley Rosado APRN Primary Care Provider Triston Franks MD Unavailable [phone] Remedios Warren Unavailable Unavailable Umang Corado MOGUL OPERATOR Unavailable Johana Lizarraga MD Primary Care Provider Chanda Soria NP Unavailable Susie Starr DO Primary Care Provider Johana Lizarraga MD Primary Care Provider Susie Starr DO Primary Care Provider Phil Rodriguez MD Primary Care Provider Unavail able Susie Starr DO Primary Care Provider [phone] Loreto Albert MD Unavailable Lizbeth Schilling APRN Primary Care Provider Susie Starr DO Primary Care Provider [phone] Encounter Details Date Type Department Care Team Description 01/02/2020 PNO Controlled Substance Contract Medical Records [address] [place] [address] Abstract, Provider Social History Tobacco Use Types [...] do you attend [facility] or quaker services? More than 4 times per year 04/13/2023 Do you belong to any clubs o r organizations such as methodist groups, unions, fraternal or athletic groups, or [...] on filedocumented in this encounter Care Teams Child Development Professor Relationship Specialty Start Date End Date Ashley Rosado APRN PCP - General Internal Medicine 09/20/19 06/27/22 Johana Lizarraga MD [address] [place] [address] [place] [address] PCP - General Internal Medicine 06/28/22 11/30/22 Jaloudi, Susie, DO [address] [place] [address] PCP - General Internal Medicine 12/01/22 12/01/22 Johana Lizarraga MD [address] [place] [address] [place] [address] PCP - General Internal Medicine 12/02/22 12/29/22 [facility], [address] [place] [address] PCP - General Internal Medicine 12/30/22 12/30/22 Phil Rodriguez MD [address] [place] [address] PCP - General Internal Medicine 01/04/23 01/10/23 [facility], [address] [place] [address] PCP - General Internal Medicine 01/11/23 02/01/24 Lizbeth Schilling, BURLAP SPREADER [address] [place] [address] PCP - General Internal Medicine 02/02/24 02/11/24 [facility], [address] [place] [address] PCP - General Internal Medicine 02/12/24 Triston Bailey MD [address] [place] [address] [place] [address] Human Resources Officer Cardiovascular Disease 06/10/20 Remedios Warren PA [address] [facility] [place] [address] Cardiology 12/08/21 Umang Corado NP [address] [place] [address] Specialist Cardiology 02/23/22 Chanda Soria NP [address] [place] [address] [address] [place] [address] Cardiology 08/11/22 Loreto Albert MD [address] [place] [address] Internal Medicine 04/13/23 documented as of this encounter
--- OUTSIDE RECORDS SUMMARY | 2024-09-10 15:35 | XMS_ITS | Encounter Summary ---
Author Organization [facility] Address [address] [place] [address] Care Team Providers Care Engraving Supervisor Name Role Phone Phil Rodriguez MD Primary Care Provider Unavail able Ashley Rosado APRN Primary Care Provider Unav ailable Triston Bailey MD Unavailable Remedios Warren PA Unavailable Unavailable Umang Corado TECHNICAL TRAINING COORDINATOR Unavailable [phone] Johana Lizarraga MD Primary Care Provider Chanda Soria TECHNICAL TRAINING COORDINATOR Unavailable Susie Starr DO Primary Care Provider Johana Lizarraga MD Primary Care Provider Susie Starr DO Primary Care Provider [phone] Phli Rodriguez MD Primary Care Provider Unavail able Susie Starr DO Primary Care Provider [phone] Loreto Albert MD Unavailable [phone] Lizbeth Schilling APRN Primary Care Provider [phone] Susie Starr DO Primary Care Provider Reason for Visit * Reason Onset Date Comments medication problems 06/04/2019 Encounter Details Date Type Department Care Team Description 06/04/2019 Telephone Adult Medicine [facility] [address] [place] [address] Phil Rodriguez MD medication problems Social History [...] 04/13/2023 How often do you attend [facility] or temple services? More than 4 times per year [...] on filedocumented in this encounter Care Teams Engraving Supervisor Relationship Specialty Start Date End Date Phil Rodriguez MD PCP - General Internal Medicine 12/15/14 09/19/19 Ashley Rosado APRN PCP - General Internal Medicine 09/20/19 06/27/22 Johana Lizarraga MD [address] [place] [address] [place] [address] PCP - General Internal Medicine 06/28/22 11/30/22 Susie Starr, DO [address] [place] [address] PCP - General Internal Medicine 12/01/22 12/01/22 Johana Lizarraga MD [address] [place] [address] [place] [address] PCP - General Internal Medicine 12/02/22 12/29/22 Susie Starr, DO [address] [place] [address] PCP - General Internal Medicine 12/30/22 12/30/22 Phil Rodriguez MD PCP - General Internal Medicine 01/04/23 01/10/[address] [address] PCP - General Internal Medicine 01/11/23 02/01/24 Lizbeth Schliling, CARPENTER ASSISTANT [address] [place] [address] PCP - General Internal Medicine 02/02/24 02/11/[address] [address] PCP - General Internal Medicine 02/12/24 Triston Bailey MD [address] [place] [address] [place] [address] Physical Trainer Cardiovascular Disease 06/10/20 Remedios Warren, PA [address] [place] [address] [place] [address] Cardiology 12/08/21 Umang Corado NP [address] [place] [address] [place] [address] Specialist Cardiology 02/23/22 Chanda Soria NP [address] [place] [address] [address] Cardiology 08/11/22 Loreto Albert MD [address] [place] [address] Internal Medicine 04/13/23 documented as of this encounter
--- OUTSIDE RECORDS SUMMARY | 2024-09-10 15:35 | XMS_ITS | Encounter Summary ---
Author Organization [facility] Address [address] [place] [address] Care Team Providers Care Ob Nurse Name Role Phone Phil Rodriguez MD Primary Care Provider Unavail able Toyn Rodriguez MD Primary Care Provider Unavail able Phil Rodriguez MD Primary Care Provider Unavail able Ashley Rosado APRN Primary Care Provider Unav ailable Triston Bailey MD Unavailable Remedios Warren Unavailable Unavailable Umang Corado ASSISTANT PORTFOLIO MANAGER Unavailable Johana Lizarraga MD Primary Care Provider Chanda Soria ASSISTANT PORTFOLIO MANAGER Unavailable Susie Starr DO Primary Care Provider [phone] Johana Lizarraga MD Primary Care Provider Susie Starr DO Primary Care Provider [phone] Phil Rodriguez MD Primary Care Provider Unavail able Susie Starr DO Primary Care Provider [phone] Loreto Albert MD Unavailable [phone] Lizbeth Schilling APRN Primary Care Provider [phone] Susie Starr DO Primary Care Provider [phone] Reason for Visit * Reason Onset Date Comments refill request 09/10/2010 Encounter Details Date Type Department Care Team Description 09/10/2010 Refill Adult Medicine [address] [address] Phil Rodriguez MD refill request Social History [...] you attend [facility] or baptism services? More than 4 times per year 04/13/2023 Do you belong to any clubs o r organizations such as shinto groups, unions, fraternal or athletic groups, or [...] encounter Miscellaneous Notes * Telephone Encounter - Krystal Whitfield - 09/10/2010 1:17 PM EDT Faxed to pharmacy Message left for pt to call back x [phone] * Telephone Encounter - Silvino Burgos MD - 09/10/2010 12:53 PM EDT Urine drug screen ordered. Okay for Monday. * Telephone Encounter - Krystal Whitfield - 09/10/2010 12:13 PM EDT Do you want her to come in for a UDS? Please sign the order and If so she said that she is leaving for [facility] OF [facility] today and would not be able to come in until Monday09/13/10 ? Would that be ok for her to do? * Telephone Encounter - Ania Alfaro - 09/10/2010 11:57 AM EDT Pt is due for refill. Please sign uds order for Dr. rodriguez * Telephone Encounter - Helena Salgado - 09/10/2010 9:18 AM EDT WHEN WAS THE PATIENT'S LAST APPOINTMENT IN ADULT MEDICINE? 07/27/10 WHEN WAS THE LAST TIME THE PATIENT SAW THEIR PCP? Same as above Does patient have an upcoming appointment? Yes 09/16/10 (THE MEDICATION REQUESTED IS ON THE MED LIST ABOVE) All of the medications requested were on the CURRENT MEDS list Did you check the Pharmacy information above?: YES Is this a mail order prescription request? NO Indicate how soon the patient needs the script: BY THE END OF THE DAY Patient would like script to be: FAXED TO PHARMACY Is the doctor here today?: YES Can the message wait until the doctor returns?: NO Patients current insurance carrier is: [facility] Plan: FFS HMO $0 [id number] Product Type: MEDICAID RISK documented in this encounter Plan of Treatment Not on file documented as of this encounter Results * OXYCODONE, URINE (09/13/2010 9:49 AM EDT) URINE OXYCODONE NONE DETECTED ND [facility] Comment: Assay cutoff 300 ng/mL Semi-quantitative assay for screening purposes only. Unconfirmed screening result should not be used for non-medical purposes. *ALTERNATE METHOD CONFIRMATION DONE UPON REQUEST ONLY* 09/13/2010 9:49 AM EDT 09/13/2010 9:49 AM EDT Silvino Burgos MD [facility] * DRUG OF ABUSE SCREEN (09/13/2010 9:49 AM EDT) AMPHETAMINE, URINE NEGATIVE NEGATIVE [facility] BARBITURATES, URINE NEGATIVE NEGATIVE [facility] BENZODIAZEPINE , URINE NEGATIVE NEGATIVE [facility] COCAINE, URINE NEGATIVE NEGATIVE [facility] OPIATES, URINE NEGATIVE NEGATIVE [facility] MARIJUANA(THC) , URINE NEGATIVE NEGATIVE [facility] 09/13/2010 9:49 AM EDT 09/13/2010 9:49 AM EDT Silvino Burgos MD LAB [facility] documented in this encounter Visit Diagnoses Diagnosis Encounter for long-term (current) use of high-risk medication- Primary Encounter for long-term (current) use of other medications documented in this encounter Care Teams Ob Nurse Relationship Specialty Start Date End Date Phil Rodriguez MD PCP - General 03/07/05 12/04/14 Tony Rodriguez MD PCP - General Internal Medicine 12/05/14 12/14/14 Phil Rodriguez MD PCP - General Internal Medicine 12/15/14 09/19/19 Ashley Rosado APRN PCP - General Internal Medicine 09/20/19 06/27/22 Johana Lizarraga [place] [address] PCP - General Internal Medicine 06/28/22 11/30/22 [facility], [address] [place] [address] PCP - General Internal Medicine 12/01/22 12/01/22 Jhoana Lizarraga MD [address] [place] [address] [place] [address] PCP - General Internal Medicine 12/02/22 12/29/22 [facility], [address] [place] [address] PCP - General Internal Medicine 12/30/22 12/30/22 Phil Rodriguez MD PCP - General Internal Medicine 01/04/23 01/10/23 [facility], [address] [place] [address] PCP - General Internal Medicine 01/11/23 02/01/24 Lizbeth Schilling APRN [address] [place] [address] PCP - General Internal Medicine 02/02/24 02/11/24 [facility], [address] [place] [address] PCP - General Internal Medicine 02/12/24 Triston Bailey MD [place] [address] Tennis Camp Instructor Cardiovascular Disease 06/10/20 Remedios Warren PA [address] [place] [address] [place] [address] Cardiology 12/08/21 Umang Corado NP [address] [place] [address] [place] [address] Specialist Cardiology 02/23/22 Chanda Soria NP [address] [place] [address] Breann Hui [address] [place] [address] Cardiology 08/11/22 Loreto Albert MD [address] [place] [address] Internal Medicine 04/13/23 documented as of this encounter
--- OUTSIDE RECORDS SUMMARY | 2024-09-10 15:35 | XMS_ITS | Encounter Summary ---
Author Organization [facility] Address [address] [place] [address] Care Team Providers Care Adjunct English Instructor Name Role Phone Ashley Rosado APRN Primary Care Provider Unav Triston Jaffe MD Unavailable Remedios Warren Unavailable Unavailable Umang Corado MICROWAVE RADIO TECHNICIAN Unavailable Johana Lizarraga MD Primary Care Provider Chanda Soria NP Unavailable Susie Starr DO Primary Care Provider Johana Lizarraga MD Primary Care Provider Susie Starr DO Primary Care Provider Phil Rodriguez MD Primary Care Provider Unavail able Susie Starr DO Primary Care Provider Loreto Albert MD Unavailable [phone] Lizbeth Schilling APRN Primary Care Provider Susie Starr DO Primary Care Provider [phone] Reason for Visit * Reason Onset Date Comments Faxed Order 04/20/2022 [facility] Encounter Details Date Type Department Care Team Description 04/20/2022 Telephone Adult Medicine [facility] [address] [place] [address] Ashley Rosado APRN Faxed Order ([facility] Social History Tobacco Use Types Packs/Day Years [...] do you attend [facility] or bahai services? More than 4 [...] encounter Miscellaneous Notes * Telephone Encounter - Sabra Portillo Pop - 04/20/2022 11:56 AM EST Faxed order received by [facility] Order placed in Ashley Rosado's bin for signature. Please fax back to [phone] after completion. documented in this encounter Plan of Treatment Not on file documented as of this encounter Visit Diagnoses Not on filedocumented in this encounter Care Teams Adjunct English Instructor Relationship Specialty Start Date End Date Ashley Rosado APRN PCP - General Internal Medicine 09/20/19 06/27/22 Johana Lizarraga MD [address] [place] [address] [place] [address] PCP - General Internal Medicine 06/28/22 11/30/22 Susie Starr, [address] [place] [address] PCP - General Internal Medicine 12/01/22 12/01/22 Johana Lizarraga MD [address] [place] [address] [place] [address] PCP - General Internal Medicine 12/02/22 12/29/22 Susie Starr, DO [address] [place] [address] PCP - General Internal Medicine 12/30/22 12/30/22 Phil Rodriguez MD [address] [place] [address] PCP - General Internal Medicine 01/04/23 01/10/23 Susie Starr, DO [address] [place] [address] PCP - General Internal Medicine 01/11/23 02/01/24 Lizbeth Schilling APRN [address] [place] [address] PCP - General Internal Medicine 02/02/24 02/11/24 Susie Starr, DO [address] [place] [address] PCP - General Internal Medicine 02/12/24 Triston Bailey MD [address] [place] [address] Dr [address] [place] [address] Touring Production Manager Cardiovascular Disease 06/10/20 Remedios Warren, PA [address] [place] [address] [place] [address] Cardiology 12/08/21 Umang Corado NP [address] [place] [address] [address] Specialist Cardiology 02/23/22 Chanda Soria, KIRAN [address] [place] [address] [address] Cardiology 08/11/22 Loreto Albert MD [address] [place] [address] Internal Medicine 04/13/23 documented as of this encounter
--- OUTSIDE RECORDS SUMMARY | 2024-09-10 15:35 | XMS_ITS | Encounter Summary ---
Author Organization [facility] Address [address] [place] [address] Care Team Providers Care Roll Slicing Machine Tender Name Role Phone Phil Rodriguez MD Primary Care Provider Unavail able Ashley Rosado APRN Primary Care Provider Unav ailable Triston Bailey MD Unavailable Remedios Warren Unavailable Unavailable Umang Corado JAVASCRIPT PROGRAMMER Unavailable Johaan Lizarraga MD Primary Care Provider Chanda Soria JAVASCRIPT PROGRAMMER Unavailable Susie Starr DO Primary Care Provider Johana Lizarraga MD Primary Care Provider Susie Starr DO Primary Care Provider Phil Rodriguez MD Primary Care Provider Unavail able Susie Starr DO Primary Care Provider Loreto Albert MD Unavailable [phone] Lizbeth Schilling APRN Primary Care Provider Susie Starr DO Primary Care Provider [phone] Reason for Referral * Non DELLA (Routine) - Authorized/Booked Specialty Diagnoses / Procedures Referred By Ana t Referred To Contact General Surgery Procedures REFERRAL TO GENERAL SURGERY Kristy Kent PA-C [address] [place] [address] Gen Surg/[place] [address] [place] [address] [place] [address] Referral ID Status Reason Start Date Expiration Date V isits Requested Visits Authorized [id number] Authorized/B ooked 12/09/2016 12/09/2017 1 1 Encounter Details Date Type Department Care Team Description 12/09/2016 Orders Only Adult Medicine [address] [address] Kristy Kent PA-C Thyroid nodule (Primary Dx); [...] you attend [facility] or zoroastrianism services? More than 4 times per year [...] - 4.00 uIU/ml 03/14/2017 3:45 PM EST [facility] 03/14/2017 11:5 2 AM EST 03/14/2017 11:52 AM EST Kristy Kent PA-C LAB [address] * US SOFT TISSUE HEAD/NECK (12/28/2016 [...] goiter documented in this encounter Care Teams Roll Slicing Machine Tender Relationship Specialty Start Date End Date Phil Rodriguez MD PCP - General Internal Medicine 12/15/14 09/19/19 Ashley Rosado APRN PCP - General Internal Medicine 09/20/19 06/27/22 Johana Lizarraga MD [address] [place] [address] [place] [address] PCP - General Internal Medicine 06/28/22 11/30/[address] [address] PCP - General Internal Medicine 12/01/22 12/01/22 Johana Lizarraga MD [address] [place] [address] [place] [address] PCP - General Internal Medicine 12/02/22 12/29/[address] [address] PCP - General Internal Medicine 12/30/22 12/30/22 Phil Rodriguez MD PCP - General Internal Medicine 01/04/23 01/10/23 [facility] [address] [place] [address] PCP - General Internal Medicine 01/11/23 02/01/24 Lizbeth Schilling APRN [address] [place] [address] PCP - General Internal Medicine 02/02/24 02/11/24 CarrilloSusie ramirez, DO [address] [place] [address] PCP - General Internal Medicine 02/12/24 Triston Bailey MD [address] [place] [address] [place] [address] Brake Operator Cardiovascular Disease 06/10/20 Remedios Warren PA [address] [place] [address] [place] [address] Cardiology 12/08/21 Umang Corado NP [address] [place] [address] [place] [address] Specialist Cardiology 02/23/22 Chanda Soria NP [address] [place] [address] [address] Cardiology 08/11/22 Loreto Albert MD [address] [place] [address] Internal Medicine 04/13/23 documented as of this encounter
--- OUTSIDE RECORDS SUMMARY | 2024-09-10 15:35 | XMS_ITS | Encounter Summary ---
Author Organization [facility] Address [address] [place] [address] Care Team Providers Care Environmental Remediation Consultant Name Role Phone Phil Rodriguez MD Primary Care Provider Unavail able Ashley Rosado APRN Primary Care Provider Unav ailable Triston Bailey MD Unavailable [phone] Remedios Warren PA Unavailable Unavailable Umang Corado NP Unavailable Johana Lizarraga MD Primary Care Provider Chanda Soria SEMICONDUCTOR WAFERS TESTER Unavailable Susie Starr DO Primary Care Provider [phone] Johana Lizarraga MD Primary Care Provider Susie Starr DO Primary Care Provider [phone] Phil Rodriguez MD Primary Care Provider Unavail able Susie Starr DO Primary Care Provider Loreto Albert MD Unavailable [phone] Lizbeth Schilling APRN Primary Care Provider [phone] Susie Starr DO Primary Care Provider [phone] Reason for Visit * Reason Onset Date Comments REFERRAL 03/26/2019 Encounter Details Date Type Department Care Team Description 03/26/2019 Telephone Adult Medicine [facility] [address] [place] [address] Phil Rodriguez MD REFERRAL Social History Tobacco Use Types Packs/Day Years [...] How often do you attend chur or rastafarian services? More than 4 times [...] encounter Miscellaneous Notes * Telephone Encounter - Emilee Friedman - 03/26/2019 4:29 PM EST I called and left Dorota the senior electronics engineer at [facility] a message to give me a call back in regards to this asthe office does have access to Medium * Telephone Encounter - Theresa Reece - 03/26/2019 11:55 AM EST Emilee, can you review the message below * Telephone Encounter - Dorota Johnson - 03/26/2019 11:25 AM EST Is the caller the patient? YES Reason for call: on 03/14/2019 a referral was placed to [facility]; they asked the pt to call us and have us send the office notes from 01/24/2019 and all others as well; regarding head trauma; which is how she got the eustachian tube dysfunction. Pt also states the ENT office has no access to EPIC Pt provided fax # [phone] Caller offered to speak with the nurse for assistance: NO documented in this encounter Plan of Treatment Not on file documented as of this encounter Visit Diagnoses Not on filedocumented in this encounter Care Teams Environmental Remediation Consultant Relationship Specialty Start Date End Date Phil Rodriguez MD PCP - General Internal Medicine 12/15/14 09/19/19 Ashley Rosado APRN PCP - General Internal Medicine 09/20/19 06/27/22 Johana Lizarraga MD [address] [place] [address] [place] [address] PCP - General Internal Medicine 06/28/22 11/30/22 Lisa Starrmana, [address] [place] [address] PCP - General Internal Medicine 12/01/22 12/01/22 Johana Lizarraga MD [address] [place] [address] [place] [address] PCP - General Internal Medicine 12/02/22 12/29/22 Susie Starr, [address] [place] [address] PCP - General Internal Medicine 12/30/22 12/30/22 Phil Rodriguez MD PCP - General Internal Medicine 01/04/23 01/10/23 Susie Starr, [address] [place] [address] PCP - General Internal Medicine 01/11/23 02/01/24 Shakir Lizbeth, DUST COLLECTOR ORE CRUSHING [address] [place] [address] PCP - General Internal Medicine 02/02/24 02/11/24 Susie Starr, [address] [place] [address] PCP - General Internal Medicine 02/12/24 Triston Bailey MD [address] [place] [address] [place] [address] Aquatic Laborer Cardiovascular Disease 06/10/20 Remedios Warren, STEPHAN [address] [place] [address] [place] [address] Cardiology 12/08/21 Umang Corado NP [address] [place] [address] [place] [address] Specialist Cardiology 02/23/22 Chanda Soria NP [address] [place] [address] [address] Cardiology 08/11/22 Loreto Albert MD [address] [place] [address] Internal Medicine 04/13/23 documented as of this encounter
--- OUTSIDE RECORDS SUMMARY | 2024-09-10 15:35 | XMS_ITS | Encounter Summary ---
Author Organization [facility] Address [address] [place] [address] Care Team Providers Care Domestic Helper Name Role Phone Phil Rodriguez MD Primary Care Provider Unavail able Tony Rodriguez MD Primary Care Provider Unavail able Phil Rodriguez MD Primary Care Provider Unavail able Ashley Rosado APRN Primary Care Provider Unav ailable Triston Bailey MD Unavailable Remedios Warren Unavailable Unavailable Umang Corado AIR COMPRESSOR ENGINEER Unavailable Johana Lizarraga MD Primary Care Provider Chanda Soria NP Unavailable Susie Starr DO Primary Care Provider [phone] Johana Lizarraga MD Primary Care Provider Susie Starr DO Primary Care Provider [phone] Phil Rodriguez MD Primary Care Provider Unavail able Susie Starr DO Primary Care Provider [phone] Loreto Albert MD Unavailable [phone] Lizbeth Schilling APRN Primary Care Provider [phone] Susie Starr DO Primary Care Provider [phone] Encounter Details Date Type Department Care Team Description 07/07/2010 Milk Drying Machine Operator Report Medical Records [address] [place] [address] Alok Keith MD Social History Tobacco Use [...] How often do you attend chur or bahai services? More than 4 times per year 04/13/2023 Do you belong to any clubs o r organizations such as protestant groups, unions, fraternal or athletic groups, or [...] on filedocumented in this encounter Care Teams Domestic Helper Relationship Specialty Start Date End Date Phil Rodriguez MD PCP - General 03/07/05 12/04/14 Tony Rodriguez MD PCP - General Internal Medicine 12/05/14 12/14/14 Phil Rodriguez MD PCP - General Internal Medicine 12/15/14 09/19/19 Ashley Rosado APRN PCP - General Internal Medicine 09/20/19 06/27/22 Johana Lizarraga MD [address] [place] [address] [place] [address] PCP - General Internal Medicine 06/28/22 11/30/22 [facility], [address] [place] [address] PCP - General Internal Medicine 12/01/22 12/01/22 Johana Lizarraga MD [address] [place] [address] [place] [address] PCP - General Internal Medicine 12/02/22 12/29/22 [facility] [address] [place] [address] PCP - General Internal Medicine 12/30/22 12/30/22 Phil Rodriguez MD PCP - General Internal Medicine 01/04/23 01/10/23 [facility], [address] [place] [address] PCP - General Internal Medicine 01/11/23 02/01/24 Lizbeth Schilling, BRANCH LIBRARY CLERK [address] [place] [address] PCP - General Internal Medicine 02/02/24 02/11/24 [facility], [address] [place] [address] PCP - General Internal Medicine 02/12/24 Triston Bailey MD [address] [place] [address] [place] [address] Assistant Director Of Residence Life Cardiovascular Disease 06/10/20 Remedios Warren PA [address] [place] [address] Cardiology 12/08/21 Umang Corado NP [address] [place] [address] [place] [address] Specialist Cardiology 02/23/22 Chanda Soria NP [address] [place] [address] [address]ui [address] [place] [address] Cardiology 08/11/22 Loreto Albert MD [address] [place] [address] Internal Medicine 04/13/23 documented as of this encounter
--- OUTSIDE RECORDS SUMMARY | 2024-09-10 15:35 | XMS_ITS | Encounter Summary ---
Author Organization [facility] Address [address] [place] [address] Care Team Providers Care Blind Installer Name Role Phone Triston Bailey MD Unavailable [phone] Remedios Warren Unavailable Unavailable Umang Corado NP Unavailable [phone] Chanda Soria NP Unavailable [phone] Susie Starr DO Primary Care Provider Loreto Albert MD Unavailable [phone] Lizbeth Schilling APRN Primary Care Provider [phone] Susie Starr DO Primary Care Provider [phone] Reason for Visit * Reason Onset Date Comments refill request 05/11/2023 Encounter Details Date Type Department Care Team Description 05/11/2023 Telephone Adult Medicine [facility] [address] [place], [place] [id number] Lurdes Treadwell NP [address] [place] [address] refill request Social History Tobacco Use Types [...] week 04/13/2023 How often do you attend [facility] or alevism services? More than 4 [...] encounter Miscellaneous Notes * Telephone Encounter - Florecita Longoria - 05/11/2023 4:57 PM EST Noted. JOSEP LOERA * Telephone Encounter - Jose David Camarillo - 05/11/2023 4:23 PM EST Pt is returning callback. Please call back @ [phone]. Thanks * Telephone Encounter - Florecita Longoria - 05/11/2023 3:00 PM EST Lmtcb on , please transfer call to ext: [phone] thanks. KA RMA documented in this encounter Plan of Treatment Not on file documented as of this encounter Visit Diagnoses Not on filedocumented in this encounter Care Teams Blind Installer Relationship Specialty Start Date End Date Susie Starr, [address] [address] PCP - General Internal Medicine 01/11/23 02/01/24 Lizbeth Schilling APRN [address] [place] [address] PCP - General Internal Medicine 02/02/24 02/11/24 Susie Starr, [address] [address] PCP - General Internal Medicine 02/12/24 Triston Bailey MD [address] [place] [address] [place] [address] Cement Contractor Cardiovascular Disease 06/10/20 Remedios Warren PA [address] [place] [address] [place] [address] Cardiology 12/08/21 Umang Corado NP [address] [place] [address] [facility] [place] [address] Specialist Cardiology 02/23/22 Chanda Soria NP [address] [place] [address] [address] Cardiology 08/11/22 Loreto Albert MD [address] [place] [address] Internal Medicine 04/13/23 documented as of this encounter
--- OUTSIDE RECORDS SUMMARY | 2024-09-10 15:35 | XMS_ITS | Encounter Summary ---
Author Organization [facility] Address [address] [place] [address] Care Team Providers Care Route Driver Name Role Phone Triston Bailey MD Unavailable [phone] Remedios Warren Unavailable Unavailable Umang Corado BEHAVIORAL ASSISTANT Unavailable [phone] Chanda Soria NP Unavailable [phone] Susie Starr DO Primary Care Provider Loreto Albert MD Unavailable [phone] Lizbeth Schilling APRN Primary Care Provider [phone] Susie Starr DO Primary Care Provider [phone] Encounter Details Date Type Department Care Team Description 09/26/2023 Cooker Operator Report Medical Records [address] [place] [address] Long Metz MD Social History Tobacco Use [...] you attend [facility] or temple services? More than 4 [...] on filedocumented in this encounter Care Teams Route Driver Relationship Specialty Start Date End Date Susie Starr, [address] [place] [address] PCP - General Internal Medicine 01/11/23 02/01/24 Lizbeth Schilling APRN [address] [place] [address] PCP - General Internal Medicine 02/02/24 02/11/24 Susie Starr DO [address] [place] [address] PCP - General Internal Medicine 02/12/24 Triston Bailey MD [address] [place] [address] [place] [address] Jigsawyer Cardiovascular Disease 06/10/20 Remedios Warren PA [address] [place] [address] Dr Hui [address] [place] [address] Cardiology 12/08/21 Umang Corado NP [address] [place] [address] Dr Hui [address] [place] [address] Specialist Cardiology 02/23/22 Chanda Soria NP [address] [place] [address] [address] Cardiology 08/11/22 Loreto Albert MD [address] [place] [address] Internal Medicine 04/13/23 documented as of this encounter
--- OUTSIDE RECORDS SUMMARY | 2024-09-10 15:36 | XMS_ITS | Encounter Summary ---
Author Organization [facility] Address [address] [place] [address] Care Team Providers Care Gis Web Developer Name Role Phone Phil Rodriguez MD Primary Care Provider Unavail able Tony Rodriguez MD Primary Care Provider Unavail able Phil Rodriguez MD Primary Care Provider Unavail able Ashley Rosado APRN Primary Care Provider Unav ailable Triston Bailey MD Unavailable Remedios Warren Unavailable Unavailable Umang Corado INSURANCE BILLING SPECIALIST Unavailable Johana Lizarraga MD Primary Care Provider Chanda Soria INSURANCE BILLING SPECIALIST Unavailable Susie Starr DO Primary Care Provider [phone] Johana Lizarraga MD Primary Care Provider Susie Starr DO Primary Care Provider [phone] Phil oRdriguez MD Primary Care Provider Unavail able Susie Starr DO Primary Care Provider [phone] Loreto Albert MD Unavailable [phone] Lizbeth Schilling APRN Primary Care Provider [phone] Susie Starr DO Primary Care Provider [phone] Encounter Details Date Type Department Care Team Description 01/12/2009 Hospital Medical Records [address] [place] [address] Juan Rhodes Social History Tobacco Use Types Packs/Day Years [...] do you attend [facility] or zoroastrianism services? More than 4 times [...] on filedocumented in this encounter Care Teams Gis Web Developer Relationship Specialty Start Date End Date Phil Rodriguez MD PCP - General 03/07/05 12/04/14 Tony Rodriguez MD PCP - General Internal Medicine 12/05/14 12/14/14 Phil Rodriguez MD PCP - General Internal Medicine 12/15/14 09/19/19 Ashley Rosado APRN PCP - General Internal Medicine 09/20/19 06/27/22 Johana Lizarraga MD [address] [place] [address] [place] [address] PCP - General Internal Medicine 06/28/22 11/30/22 [facility], [address] [place] [address] PCP - General Internal Medicine 12/01/22 12/01/22 Johana Lizarraga MD [address] [place] [address] [place] [address] PCP - General Internal Medicine 12/02/22 12/29/22 [facility], [address] [place] [address] PCP - General Internal Medicine 12/30/22 12/30/22 Phil Rodriguez MD PCP - General Internal Medicine 01/04/23 01/10/23 [facility], [address] [facility] [address] PCP - General Internal Medicine 01/11/23 02/01/24 Lizbeth Schilling, MELISSA [address] [place] [address] PCP - General Internal Medicine 02/02/24 02/11/24 [facility], [address] [facility] [address] PCP - General Internal Medicine 02/12/24 Triston Bailey MD [address] [place] [address] [place] [address] Boardinghouse Keeper Cardiovascular Disease 06/10/20 Remedios Warren PA [address] [place] [address] [place] [address] Cardiology 12/08/21 Umang Corado NP [address] [place] [address] Specialist Cardiology 02/23/22 Chanda Soria NP [address] [place] [address] Cardiology 08/11/22 Loreto Albert MD [address] [place] [address] Internal Medicine 04/13/23 documented as of this encounter
--- OUTSIDE RECORDS SUMMARY | 2024-09-10 15:36 | XMS_ITS | Encounter Summary ---
Author Organization [facility] Address [address] [place] [address] Care Team Providers Care Label Cutter Name Role Phone Ashley Rosado APRN Primary Care Provider Unav Triston Jaffe MD Unavailable Remedios Warren Unavailable Unavailable Umang Corado EDUCATION PROGRAM ASSOCIATE Unavailable Johana Lizarraga MD Primary Care Provider Chanda Soria NP Unavailable Susie Starr DO Primary Care Provider Johana Lizarraga MD Primary Care Provider Susie Starr DO Primary Care Provider Phil Rodriguez MD Primary Care Provider Unavail able Susie Starr DO Primary Care Provider Loreto Albert MD Unavailable [phone] Lizbeth Schilling APRN Primary Care Provider Susie Starr DO Primary Care Provider Encounter Details Date Type Department Care Team Description 06/17/2022 Orders Only Medical Records [address] [place] [address] Mervat Cruz MD [address] [place] [address] Social History Tobacco Use Types Packs/Day Years [...] [facility] or methodist services? More than 4 times [...] on filedocumented in this encounter Care Teams Label Cutter Relationship Specialty Start Date End Date Ashley Rosado APRN PCP - General Internal Medicine 09/20/19 06/27/22 Johana Lizarraga MD [address] [place] [address] [place] [address] PCP - General Internal Medicine 06/28/22 11/30/22 [facility], [address] [place] [address] PCP - General Internal Medicine 12/01/22 12/01/22 Johana Lizarraga MD [address] [place] [address] [place] [address] PCP - General Internal Medicine 12/02/22 12/29/22 [facility], [address] [place] [address] PCP - General Internal Medicine 12/30/22 12/30/22 Phil Rodriguez MD [address] [place] [address] PCP - General Internal Medicine 01/04/23 01/10/23 [facility], [address] [place] [address] PCP - General Internal Medicine 01/11/23 02/01/24 Lizbeth Schilling APRN [address] [place] [address] PCP - General Internal Medicine 02/02/24 02/11/24 [facility], [address] [place] [address] PCP - General Internal Medicine 02/12/24 Triston Bailey MD [address] [place] [address] [place] [address] Pediatric Oncology Nurse Cardiovascular Disease 06/10/20 Remedios Warren PA [address] [place] [address] Dr Hui [address] [place] [address] Cardiology 12/08/21 Umang Corado NP [address] [place] [address] Dr Hui [address] [place] [address] Specialist Cardiology 02/23/22 Chanda Soria NP [address] [place] [address] Breann Hui [address] [place] [address] Cardiology 08/11/22 Loreto Albert MD [address] [place] [address] Internal Medicine 04/13/23 documented as of this encounter
--- OUTSIDE RECORDS SUMMARY | 2024-09-10 15:36 | XMS_ITS | Encounter Summary ---
Author Organization [facility] Address [address] [place] [address] Care Team Providers Care Surgical Asst Name Role Phone Phil Rodriguez MD Primary Care Provider Unavail able Ashley Rosado APRN Primary Care Provider Unav ailable Triston Bailey MD Unavailable [phone] Remedios Warren PA Unavailable Unavailable Umang Corado GRINDING MACHINE TENDER Unavailable Johana Lizarraga MD Primary Care Provider Chanda Soria GRINDING MACHINE TENDER Unavailable Susie Starr DO Primary Care Provider Johana Lizarraga MD Primary Care Provider Susie Starr DO Primary Care Provider Phil Rodriguez MD Primary Care Provider Unavail able Susie Starr DO Primary Care Provider [phone] Loreto Albert MD Unavailable Lizbeth Schilling APRN Primary Care Provider [phone] Susie Starr DO Primary Care Provider [phone] Encounter Details Date Type Department Care Team Description 02/02/2018 [facility] Medical Records [address] [place] [address] Abstract, Provider Social History Tobacco Use Types [...] do you attend [facility] or sabianism services? More than 4 times per year [...] on filedocumented in this encounter Care Teams Surgical Asst Relationship Specialty Start Date End Date Phil Rodriguez MD PCP - General Internal Medicine 12/15/14 09/19/19 Ashley Rosado APRN PCP - General Internal Medicine 09/20/19 06/27/22 Johana Lizarraga MD [address] [place] [address] [place] [address] PCP - General Internal Medicine 06/28/22 11/30/22 Susie Starr, DO [address] [place] [address] [place] [address] PCP - General Internal Medicine 12/01/22 12/01/22 Johana Lizarraga MD [address] [place] [address] [place] [address] PCP - General Internal Medicine 12/02/22 12/29/[address] [address] PCP - General Internal Medicine 12/30/22 12/30/22 Phil Rodriguez MD PCP - General Internal Medicine 01/04/23 01/10/[address] [address] PCP - General Internal Medicine 01/11/23 02/01/24 Lizbeth Schilling, MANAGER PAYMENT [address] [place] [address] PCP - General Internal Medicine 02/02/24 02/11/[address] [address] PCP - General Internal Medicine 02/12/24 Triston Bailey MD [address] [place] [address] [place] [address] Rope Tier Cardiovascular Disease 06/10/20 Remedios Warren PA [address] [place] [address] [place] [address] Cardiology 12/08/21 Umang Corado NP [address] [place] [address] [place] [address] Specialist Cardiology 02/23/22 Chanda Soria NP [address] [place] [address] [place] [address] Cardiology 08/11/22 Loreto Albert MD [address] [place] [address] Internal Medicine 04/13/23 documented as of this encounter
--- OUTSIDE RECORDS SUMMARY | 2024-09-10 15:36 | XMS_ITS | Encounter Summary ---
Author Organization [facility] Address [address] [place] [address] Care Team Providers Care Ground Worker Name Role Phone Phil Rodriguez MD Primary Care Provider Unavail able Ashley Rosado APRN Primary Care Provider Unav ailable Triston Bailey MD Unavailable Remedios Warren PA Unavailable Unavailable Umang Corado JUNK REMOVAL SPECIALIST Unavailable Johana Lizarraga MD Primary Care Provider Chanda Soria JUNK REMOVAL SPECIALIST Unavailable Susie Starr DO Primary Care Provider Johana Lizarraga MD Primary Care Provider Susie Starr DO Primary Care Provider Phil Rodriguez MD Primary Care Provider Unavail able Susie Starr DO Primary Care Provider [phone] oLreto Albert MD Unavailable [phone] Lizbeth Schilling APRN Primary Care Provider [phone] Susie Starr DO Primary Care Provider [phone] Encounter Details Date Type Department Care Team Description 01/18/2019 SNF discharge summary Medical Records [address] [place] [address] Abstract, Provider Social History Tobacco Use Types [...] do you attend [facility] or episcopalian services? More than 4 times [...] on filedocumented in this encounter Care Teams Ground Worker Relationship Specialty Start Date End Date Phil Rodriguez MD PCP - General Internal Medicine 12/15/14 09/19/19 Ashley Rosado APRN PCP - General Internal Medicine 09/20/19 06/27/22 Johana Lizarraga MD [address] [place] [address] [place] [address] PCP - General Internal Medicine 06/28/22 11/30/22 Susie Starr, DO [address] [place] [address] [place] [address] PCP - General Internal Medicine 12/01/22 12/01/22 Johana Lizarraga MD [address] [place] [address] [place] [address] PCP - General Internal Medicine 12/02/22 12/29/[address] [address] PCP - General Internal Medicine 12/30/22 12/30/22 Phil Rodriguez MD PCP - General Internal Medicine 01/04/23 01/10/[address] [address] PCP - General Internal Medicine 01/11/23 02/01/24 Lizbeth Schilling, PAPER ROLL MACHINE OPERATOR [address] [place] [address] PCP - General Internal Medicine 02/02/24 02/11/[address] [address] PCP - General Internal Medicine 02/12/24 Triston Bailey MD [address] [place] [address] [place] [address] Deputy Sheriff K9 Handler Cardiovascular Disease 06/10/20 Remedios Warren PA [address] [place] [address] [place] [address] Cardiology 12/08/21 Umang Corado NP [address] [place] [address] [place] [address] Specialist Cardiology 02/23/22 Chanda Soria NP [address] [place] [address] [place] [address] Cardiology 08/11/22 Loreto Albert MD [address] [place] [address] Internal Medicine 04/13/23 documented as of this encounter
--- OUTSIDE RECORDS SUMMARY | 2024-09-10 15:36 | XMS_ITS | Encounter Summary ---
Author Organization [facility] Address [address] [place] [address] Care Team Providers Care Machine Shop Specialist Name Role Phone Phil Rodriguez MD Primary Care Provider Unavail able Ashley Rosado APRN Primary Care Provider Unav ailable Triston Bailey MD Unavailable Remedios Warren PA Unavailable Unavailable Umang Corado PROGRAMMING MANAGER Unavailable Johana Lizarraga MD Primary Care Provider Chanda Soria PROGRAMMING MANAGER Unavailable Susie Starr DO Primary Care Provider Johana Lizarraga MD Primary Care Provider Susie Starr DO Primary Care Provider Phil Rodriguez MD Primary Care Provider Unavail able Susie Starr DO Primary Care Provider [phone] Loreto Albert MD Unavailable [phone] Lizbeth Schilling APRN Primary Care Provider [phone] Susie Starr DO Primary Care Provider [phone] Encounter Details Date Type Department Care Team Description 06/30/2016 Inspector Balance Bridge Report Medical Records [address] [place] [address] Vince Page II Social History Tobacco Use [...] 04/13/2023 How often do you attend [facility] or temple services? More than 4 [...] on filedocumented in this encounter Care Teams Machine Shop Specialist Relationship Specialty Start Date End Date Phil Rodriguez MD PCP - General Internal Medicine 12/15/14 09/19/19 Ashley Rosado APRN PCP - General Internal Medicine 09/20/19 06/27/22 Johana Lizarraga MD [address] [place] [address] Dr [place], [place] [address] PCP - General Internal Medicine 06/28/22 11/30/22 Susie Starr, DO [address] [place] [address] PCP - General Internal Medicine 12/01/22 12/01/22 Johana Lizarraga MD [address] [place] [address] [place] [id number] PCP - General Internal Medicine 12/02/22 12/29/22 [facility] [address] [place] [address] PCP - General Internal Medicine 12/30/22 12/30/22 Phil Rodriguez MD PCP - General Internal Medicine 01/04/23 01/10/[address] [address] PCP - General Internal Medicine 01/11/23 02/01/24 Lizbeth Schilling, VENTILATION MECHANIC [address] [place] [address] PCP - General Internal Medicine 02/02/24 02/11/[address] [address] PCP - General Internal Medicine 02/12/24 Triston Bailey MD [address] [place] [address] [place] [id number] Electroplater Automatic Cardiovascular Disease 06/10/20 Remedios Warren PA [address] [facility] [id number] Cardiology 12/08/21 Umang Corado NP [address] [place] [address] [place] [id number] Specialist Cardiology 02/23/22 Chanda Soria NP [address] [place] [address] [place] [address] Cardiology 08/11/22 Loreto Albert MD [address] [place] [address] Internal Medicine 04/13/23 documented as of this encounter
--- OUTSIDE RECORDS SUMMARY | 2024-09-10 15:36 | XMS_ITS | Encounter Summary ---
Author Organization [facility] Address [address] [place] [address] Care Team Providers Care Bench Assembly Inspector Name Role Phone Triston Bailey MD Unavailable [phone] Remedios Warren Unavailable Unavailable Umang Corado HAT AND CAP DRYING ROOM ATTENDANT Unavailable Johana Lizarraga MD Primary Care Provider Chanda Soria HAT AND CAP DRYING ROOM ATTENDANT Unavailable Susie Starr DO Primary Care Provider Johana Lizarraga MD Primary Care Provider Susie Starr DO Primary Care Provider Phil Rodriguez MD Primary Care Provider Unavail able Susie Starr DO Primary Care Provider Loreto Albert MD Unavailable [phone] Lizbeth Schilling APRN Primary Care Provider Susie Starr DO Primary Care Provider Reason for Visit * Reason Comments E-prescribe Rx Request Encounter Details Date Type Department Care Team Description 11/21/2022 Refill Internal Medicine - [place] [address], [address] [place] [address] Radha Ceballos PA-C [address] [place] [phone] E-prescribe Rx Request Social History Tobacco [...] you attend [facility] or hinduism services? More than 4 times per year [...] encounter Miscellaneous Notes * Telephone Encounter - Johana Lizarraga MD - 11/21/2022 5:24 PM EDT I never met with this patient. Patient need an appointment because lorazepam is a controlled substance. * Telephone Encounter - Qiana Torrez M.A. - 11/21/2022 3:49 PM EDT Appointment on 08/24/2022 Component Date Value ??? MAGNESIUM (MG) 08/24/2022 2.0 Orders Only on 08/24/2022 Component Date Value ??? GLYCATED HEMOGLOBIN A1C 08/24/2022 8.3 (H) ??? ESTIMATED AVERAGE GLUCOSE 08/24/2022 192 BP Readings from Last 3 Encounters: 08/31/22 135/55 08/24/22 120/60 08/15/22 116/60 * Telephone Encounter - Sarah Mac - 11/21/2022 11:55 AM EDT EDITH: 08/24/2022 NOV: 02/22/2023 documented in this encounter Plan of Treatment Not on file documented as of this encounter Visit Diagnoses Diagnosis Anxiety Anxiety state, unspecified documented in this encounter Care Teams Bench Assembly Inspector Relationship Specialty Start Date End Date Johana Lizarraga MD [address] [place] [address] [place] [address] PCP - General Internal Medicine 06/28/22 11/30/22 Susie Starr, [address] [place] [address] PCP - General Internal Medicine 12/01/22 12/01/22 Johana Lizarraga MD [address] [place] [address] [place] [address] PCP - General Internal Medicine 12/02/22 12/29/22 Susie Starr, [address] [place] [address] PCP - General Internal Medicine 12/30/22 12/30/22 Phil Rodriguez MD [address] [place] [address] PCP - General Internal Medicine 01/04/23 01/10/23 Susie Starr, [address] [place] [address] PCP - General Internal Medicine 01/11/23 02/01/24 Ofelia Schillinghel, APPLICATION RELEASE MANAGER [address] [place] [address] PCP - General Internal Medicine 02/02/24 02/11/24 ZacharySusie ramirez, [address] [place] [address] PCP - General Internal Medicine 02/12/24 Triston Bailey MD [address] [place] [address] [place] [address] Customer Engagement Manager Cardiovascular Disease 06/10/20 Remedios Warren PA [address] [place] [address] [place] [address] Cardiology 12/08/21 Umang Corado NP [address] [place] [address] [place] [address] Specialist Cardiology 02/23/22 Chanda Soria NP [address] [place] [address] [address] Cardiology 08/11/22 Loreto Albert MD [address] [place] [address] Internal Medicine 04/13/23 documented as of this encounter
--- OUTSIDE RECORDS SUMMARY | 2024-09-10 15:36 | XMS_ITS | Encounter Summary ---
Author Organization [facility] [place] [facility] Address [address] [place] [address] Care Team Providers Care Clinical Staff Rn Name Role Phone Triston Bailey MD Unavailable Remedios Warren Unavailable Unavailable Umang Corado CHICKEN CATCHER Unavailable [phone] Chanda Soria NP Unavailable [phone] Susie Starr DO Primary Care Provider [phone] Loreto Albert MD Unavailable [phone] Lizbeth Schilling APRN Primary Care Provider Susie Starr DO Primary Care Provider [phone] Reason for Referral * Non DELLA (Priority) - Authorized/Booked Specialty Diagnoses / Procedures Referred By Contac t Referred To Contact Nephrology Diagnoses Chronic renal insufficiency Procedures REFERRAL TO NEPHROLOGY Johana Lizarraga MD [address] [place] [phone] [facility] [address] [place] [address] Referral ID Status Reason Start Date Expiration Date V isits Requested Visits Authorized [id number] Authorized/B ooked 02/14/2023 06/30/2023 1 1 Encounter Details Date Type Department Care Team Description 02/14/2023 Orders Only Internal Medicine - [address], [address] [place] [address] Johana Lizarraga MD [address] [place] [phone] Stage 3b chronic kidney disease (HCC) [...] How often do you attend [facility] or samaritan services? More than 4 times per year 04/13/2023 Do you belong to any clubs o r organizations such as religion groups, unions, fraternal or athletic groups, or [...] place to sleep or slept in a [place] [facility] facility (including now)? No 04/13/2023 Sex Assigned at [...] Primary documented in this encounter Care Teams Clinical Staff Rn Relationship Specialty Start Date End Date Susie Starr DO [address] [place] [address] PCP - General Internal Medicine 01/11/23 02/01/24 Lizbeth Schilling APRN [address] [place] [address] PCP - General Internal Medicine 02/02/24 02/11/24 Susie Starr DO [address] [place] [address] PCP - General Internal Medicine 02/12/24 Triston Bailey MD [address] [place] [address] [place] [address] Radio Sales Account Executive Cardiovascular Disease 06/10/20 Remedios Warren PA [address] [place] [address] [place] [address] Cardiology 12/08/21 Umang Corado NP [address] [place] [address] [place] [address] Specialist Cardiology 02/23/22 Chanda Soria NP [address] [place] [address] [address] Cardiology 08/11/22 Loreto Albert MD [address] [place] [address] Internal Medicine 04/13/23 documented as of this encounter
--- OUTSIDE RECORDS SUMMARY | 2024-09-10 15:36 | XMS_ITS | Encounter Summary ---
Author Organization [facility] Address [address] [place] [address] Care Team Providers Care City Bailiff Name Role Phone Ashley Rosado APRN Primary Care Provider Unav Triston Jaffe MD Unavailable Remedios Warren Unavailable Unavailable Umang Corado VP CONSTRUCTION Unavailable Johana Lizarraga MD Primary Care Provider Chanda Soria NP Unavailable Susie Starr DO Primary Care Provider Johana Lizarraga MD Primary Care Provider Susie Starr DO Primary Care Provider Phil Rodriguez MD Primary Care Provider Unavail able Susie Starr DO Primary Care Provider Loreto Albert MD Unavailable [phone] Lizbeth Schilling APRN Primary Care Provider Susie Starr DO Primary Care Provider [phone] Reason for Visit * Reason Onset Date Comments Medication 06/24/2022 Encounter Details Date Type Department Care Team Description 06/24/2022 Telephone Adult Medicine [facility] [address] [place] [address] Ashley Rosado APRN Medication Social History Tobacco Use Types Packs/Day Years [...] do you attend [facility] or religion services? More than 4 times per year 04/13/2023 Do you belong to any clubs o r organizations such as restorationist groups, unions, fraternal or athletic groups, or [...] encounter Miscellaneous Notes * Telephone Encounter - Samantha Contreras - 06/28/2022 3:28 PM EST Pt changed PCP with Dr. Lizarraga awaiting for new primary care in [facility] office. * Telephone Encounter - Marisela Cervantes - 06/24/2022 9:57 AM EST Left message to call back. Please put to [phone] or re-message to A side Pt needs to choose a new PCP if she returns call (ok to wait on mid cycle pill count see FYI) * Telephone Encounter - Marisela Cervantes - 06/24/2022 9:57 AM EST ----- Message from Ashley Rosado APRN sent at 06/24/2022 9:38 AM EST ----- UDS negative for lorazepam, please add patient to the list for a mid cycle pill count, thank you. documented in this encounter Plan of Treatment Not on file documented as of this encounter Visit Diagnoses Not on filedocumented in this encounter Care Teams City Bailiff Relationship Specialty Start Date End Date Ashley Rosado APRN PCP - General Internal Medicine 09/20/19 06/27/22 Johana Lizarraga MD [address] [place] [address] [place] [address] PCP - General Internal Medicine 06/28/22 11/30/22 Susie Starr, [address] [place] [address] PCP - General Internal Medicine 12/01/22 12/01/22 Johana Lizarraga MD [address] [place] [address] [place] [address] PCP - General Internal Medicine 12/02/22 12/29/22 Susie Starr, [address] [place] [address] PCP - General Internal Medicine 12/30/22 12/30/22 Phil Rodriguez MD [address] [place] [address] PCP - General Internal Medicine 01/04/23 01/10/23 Susie Starr, DO [address] [place] [address] PCP - General Internal Medicine 01/11/23 02/01/24 Lizbeth Schilling APRN [address] [place] [address] PCP - General Internal Medicine 02/02/24 02/11/24 RoWilfreda, DO [address] [place] [address] PCP - General Internal Medicine 02/12/24 Triston Bailey MD [address] [place] [address] [place] [address] [employer] [employer] Police Sergeant Cardiovascular Disease 06/10/20 Remedios Warren PA [address] [place] [address] [place] [address] Cardiology 12/08/21 Umang Corado NP [address] [place] [address] [place] [address] Specialist Cardiology 02/23/22 Chanda Soria NP [address] [place] [address] [address] Cardiology 08/11/22 Loreto Albert MD [address] [place] [address] Internal Medicine 04/13/23 documented as of this encounter
--- OUTSIDE RECORDS SUMMARY | 2024-09-10 15:36 | XMS_ITS | Encounter Summary ---
Author Organization [facility] Address [address] [place] [address] Care Team Providers Care Forestry Patrolman Name Role Phone Ashley Rosado APRN Primary Care Provider Triston Franks MD Unavailable Remedios Warren Unavailable Unavailable Umang Corado FELT PULLER Unavailable [phone] Johana Lizarraga MD Primary Care Provider Chanda Soria NP Unavailable Susie Starr DO Primary Care Provider Johana Lizarraga MD Primary Care Provider Susie Starr DO Primary Care Provider Phil Rodriguez MD Primary Care Provider Unavail able Susie Starr DO Primary Care Provider [phone] Loreto Albert MD Unavailable [phone] Lizbeth Schilling APRN Primary Care Provider Susie Starr DO Primary Care Provider [phone] Encounter Details Date Type Department Care Team Description 06/23/2022 SCAN Medical Records [address] [place] [address] Abstract, Provider Social History Tobacco Use Types [...] often do you attend [facility] or quaker services? More than 4 times [...] PM EST documented as of this encounter Progress Notes * Triston Bailey MD - 06/30/2022 2:55 PM EST Good. Please asked the patient to continue her current medication regimen. I will also arrange for her to have a follow-up appointment with me in July or August 2022. Please ask her to contact the office if she has any recurrence of her symptoms before her next appointment. documented in this encounter Plan of Treatment Not on file documented as of this encounter Procedures Procedure Name Priority Date/Time Associated Diagnosis Comments OUTSIDE PET Routine 06/23/2022 documented in this encounter Results * OUTSIDE PET (06/23/2022) Provider Abstract RADIOLOGY PVCA documented in this encounter Visit Diagnoses Not on filedocumented in this encounter Care Teams Forestry Patrolman Relationship Specialty Start Date End Date Ashley Rosado APRN PCP - General Internal Medicine 09/20/19 06/27/22 Johana Lizarraga MD [address] [place] [address] [place] [address] PCP - General Internal Medicine 06/28/22 11/30/22 [facility], [address] [place] [address] PCP - General Internal Medicine 12/01/22 12/01/22 Johana Lizarraga MD [address] [place] [address] [place] [address] PCP - General Internal Medicine 12/02/22 12/29/22 [facility], [address] [place] [address] PCP - General Internal Medicine 12/30/22 12/30/22 Phil Rodriguez MD [address] [place] [address] PCP - General Internal Medicine 01/04/23 01/10/23 [facility], [address] [facility] [place] [address] PCP - General Internal Medicine 01/11/23 02/01/24 Lizbeth Schilling APRN [address] [place] [address] PCP - General Internal Medicine 02/02/24 02/11/24 Lisa Starrmana, DO [address] [place] [address] PCP - General Internal Medicine 02/12/24 Triston Bailey MD [address] [place] [address] [place] [address] Judicial Assistant Cardiovascular Disease 06/10/20 Remedios Warren PA [address] [place] [address] [place] [address] Cardiology 12/08/21 Umang Corado NP [address] [place] [address] [place] [address] Specialist Cardiology 02/23/22 Chanda Soria NP [address] [place] [address] [address] Cardiology 08/11/22 Loreto Albert MD [address] [place] [address] Internal Medicine 04/13/23 documented as of this encounter
--- OUTSIDE RECORDS SUMMARY | 2024-09-10 15:36 | XMS_ITS | Clinical Summary ---
Author Organization [facility], Address [address] [place] [address] [place] [address] Phone Care Team Providers Care Make Up Operator Name Role Phone Kira King MD Primary Care Provider [phone] Allergies Active Allergy Reactions Criticality Noted Date [...] every 4 (four) hours if needed Active Grelton-3 1000 MG capsule Take by mouth Active [...] 3 Active Cholecalciferol (Vitamin D3) 1.25 MG (01112 UT) capsule Take 1 capsule by mouth [...] 02/21/2020 Elevated erythrocyte sedimentation rate 02/21/2020 Immunizations Immunization Administration Dates Next Due Hepatitis B 02/24/2009 [...] 07/12/2021, 07/08/2021, Additional history exists Influenza Vaccine (Season Ended) 2024 02/11/2022, 01/04/2021, 02/27/2020, Additional history exists Hepatitis B Vaccine Aged Out 02/24/2009 No longe r eligible based on patient's age to complete this topic Pneumococcal Vaccine: 50+ Years Completed 01/09/2017, 02/03/2012 Pneumococcal Vaccine: Peds (0 to 5 Years) and At-Risk Patients (6 to 49 Years) Discontinued 01/09/2017, 02/03/2012 Procedures Procedure Name Priority Date/Time Associated Diagnosis Comments HEMOGLOBIN A1C Routine 07/21/2020 2:21 PM EDT Stage 3a chronic kidney disease (HCC) from Last 3 Months or Most Recently Relevant to Health Maintenance Results * (ABNORMAL) Hemoglobin A1c (07/21/2020 2:21 PM EDT) Hemoglobin A1C 6.9(H) (4.0-5.6) % [facility] Comment: MONITORING: In known diabetic patients, hemoglobin A1c targets should be discussed with health care provider. DIAGNOSTIC USE: ??The [place] Diabetes Association (ADA) and the World Health [...] Supplement 1 Testing performed or reported by [facility], a Service of [facility], [address] [place] [address] Gail Forbes MD, Window Air Conditioner Installer Blood specimen (specimen) Venous blood / Unknown 07/21/2020 2:21 PM EDT 07/21/2020 2:24 PM EDT us [facility] BLOOD ORDERABLES Final Res ult [facility] from Last 3 Months or Most Recently Relevant to Health Maintenance Insurance [place] [address] Dual SNP ([id number]) Care Teams Make Up Operator Relationship Specialty Start Date End Date Kira King MD [address] [place] [address] PCP - General Internal Medicine 06/25/20
--- OUTSIDE RECORDS SUMMARY | 2024-09-10 15:36 | XMS_ITS | Encounter Summary ---
Author Organization [facility] Address [address] [place] [address] Care Team Providers Care Bag Inspector Name Role Phone Phil Rodriguez MD Primary Care Provider Unavail able Ashley Rosado APRN Primary Care Provider Unav ailable Triston Bailey MD Unavailable Remedios Warren PA Unavailable Unavailable Umang Corado FILTER WASHER Unavailable Johana Lizarraga MD Primary Care Provider Chanda Soria FILTER WASHER Unavailable Susie Starr DO Primary Care Provider [phone] Johana Lizarraga MD Primary Care Provider Susie Starr DO Primary Care Provider Phil Rodriguez MD Primary Care Provider Unavail able Susie Starr DO Primary Care Provider [phone] Loreto Albert MD Unavailable [phone] Lizbeth Schilling APRN Primary Care Provider [phone] Susie Starr DO Primary Care Provider [phone] Reason for Visit * Reason Onset Date Comments hospital follow up 01/17/2019 Encounter Details Date Type Department Care Team Description 01/17/2019 Telephone Adult Medicine [address] [address] Phil Rodriguez MD hospital follow up Social [...] attend [facility] or orthodox services? More than 4 [...] 01/21/2019 9:37 AM EDT Margarita Kidd (Self) [phone] Call placed to pt. Hospital follow up for [facility], pt was then in Rehab in [place]. Dr. Rodriguez on 01/24/19 at 1:30 PM. * Telephone Encounter - Lizbeth Delacruz L.P.NManoj - 01/18/2019 9:04 AM EDT Telephone Information: Call placed to pt home number. No answer. Message left for return call. * Telephone Encounter - Cecile Mayo M.A - 01/17/2019 4:10 PM EDT Left message to call back ask for message pool nurse or re-message p [phone]. * Telephone Encounter - Inés Luther - 01/17/2019 4:00 PM EDT Hospital follow up appointment needed Hospital patient was treated at: [facility] Was this only an ER visit [...] on filedocumented in this encounter Care Teams Bag Inspector Relationship Specialty Start Date End Date Phil Rodriguez MD PCP - General Internal Medicine 12/15/14 09/19/19 Ashley Rosado APRN PCP - General Internal Medicine 09/20/19 06/27/22 Johana Lizarraga MD [address] [place] [address] [place] [address] PCP - General Internal Medicine 06/28/22 11/30/22 [facility], [address] [place] [address] PCP - General Internal Medicine 12/01/22 12/01/22 Johana Lizarraga MD [address] [place] [address] [place] [address] PCP - General Internal Medicine 12/02/22 12/29/22 [facility], [address] [facility] [place] [address] PCP - General Internal Medicine 12/30/22 12/30/22 Phil Rodriguez MD PCP - General Internal Medicine 01/04/23 01/10/23 [facility] [address] [place] [address] PCP - General Internal Medicine 01/11/23 02/01/24 Lizbeth Schilling, MANUAL WRITER [address] [place] [address] PCP - General Internal Medicine 02/02/24 02/11/24 [facility] [address] [place] [address] PCP - General Internal Medicine 02/12/24 Triston Bailey MD [address] [place] [address] [place] [address] Critical Care Physician Assistant Cardiovascular Disease 06/10/20 Remedios Warren PA [address] [facility] [place] [address] Cardiology 12/08/21 Umang Corado NP [address] [facility] [place] [address] Specialist Cardiology 02/23/22 Chanda Soria NP [address] [place] [address] Cardiology 08/11/22 Loreto Albert MD [address] [place] [address] Internal Medicine 04/13/23 documented as of this encounter
--- OUTSIDE RECORDS SUMMARY | 2024-09-10 15:36 | XMS_ITS | Encounter Summary ---
Author Organization [facility] Address [address] [place] [address] Care Team Providers Care Wafer Batter Mixer Name Role Phone Triston Bailey MD Unavailable [phone] Remedios Warren Unavailable Unavailable Umang Corado INSTRUCTIONAL COORDINATOR Unavailable Johana Lizarraga MD Primary Care Provider Chanda Soria NP Unavailable [phone] Susie Starr DO Primary Care Provider Johana Lizarraga MD Primary Care Provider [phone] Susie Starr DO Primary Care Provider Phil Rodriguez MD Primary Care Provider Unavail able Susie Starr DO Primary Care Provider Loreto Albert MD Unavailable [phone] Lizbeth Schilling APRN Primary Care Provider [phone] Susie Starr DO Primary Care Provider [phone] Encounter Details Date Type Department Care Team Description 10/25/2022 [facility] Medical Records [address] [place] [id number] Social History Tobacco Use Types Packs/Day Years [...] do you attend [facility] or islam services? More than 4 times [...] Date/Time Associated Diagnosis Comments OUTSIDE EKG Routine 10/25/2022 OUTSIDE PLAIN FILM Routine 10/25/2022 OUTSIDE LAB Routine 10/25/2022 documented in this encounter Results * OUTSIDE PLAIN FILM (10/25/2022) Provider Abstract RADIOLOGY * OUTSIDE LAB (10/25/2022) Provider Abstract LAB * OUTSIDE EKG (10/25/2022) Provider Abstract CARDIOLOGY documented in this encounter Visit Diagnoses Not on filedocumented in this encounter Care Teams Wafer Batter Mixer Relationship Specialty Start Date End Date Johana Lizarraga MD [address] [place] [address] [place] [address] PCP - General Internal Medicine 06/28/22 11/30/22 [facility], [address] [facility] [place] [address] PCP - General Internal Medicine 12/01/22 12/01/22 Johana Lizarraga MD [address] [place] [address] [place] [address] PCP - General Internal Medicine 12/02/22 12/29/22 [facility] Susie, [address] [facility] [place] [address] PCP - General Internal Medicine 12/30/22 12/30/22 Phil Rodriguez MD [address] [facility] [place] [address] PCP - General Internal Medicine 01/04/23 01/10/23 [facility], [address] [facility] [place] [address] PCP - General Internal Medicine 01/11/23 02/01/24 Lizbeth Schilling, RECORD SEARCHER [address] [place] [address] PCP - General Internal Medicine 02/02/24 02/11/24 [facility], [address] [facility] [place] [address] PCP - General Internal Medicine 02/12/24 Triston Bailey MD [address] [place] [address] [place] [address] Oven Heater Helper Cardiovascular Disease 06/10/20 Remedios Warren PA [address] [place] [address] [place] [address] Cardiology 12/08/21 Umang Corado NP [address] [place] [address] [place] [address] Specialist Cardiology 02/23/22 Chanda Soria NP [address] [place] [address] Bre[address] Hui [address] [place] [address] Cardiology 08/11/22 Loreto Albert MD [address] [place] [address] Internal Medicine 04/13/23 documented as of this encounter
--- OUTSIDE RECORDS SUMMARY | 2024-09-10 15:36 | XMS_ITS | Encounter Summary ---
Author Organization [facility] Address [address] [place] [address] Care Team Providers Care Commercial Escrow Assistant Name Role Phone Triston Bailey MD Unavailable [phone] Remedios Warren Unavailable Unavailable Umang Corado FILTRATION PLANT OPERATOR Unavailable Johana Lizarraga MD Primary Care Provider Chanda Soria NP Unavailable [phone] Susie Starr DO Primary Care Provider Johana Lizarraga MD Primary Care Provider [phone] Susie Starr DO Primary Care Provider Phil Rodriguez MD Primary Care Provider Unavail able Susie Starr DO Primary Care Provider [phone] Loreto Albert MD Unavailable [phone] Lizbeth Schilling APRN Primary Care Provider [phone] Susie Starr DO Primary Care Provider [phone] Encounter Details Date Type Department Care Team Description 08/15/2022 [facility] Medical Records [address] [place] [address] Abstract, Provider Social History Tobacco Use Types [...] do you attend [facility] or jehovah's witness services? More than [...] on filedocumented in this encounter Care Teams Commercial Escrow Assistant Relationship Specialty Start Date End Date Johana Lizarraga MD [address] [place] [address] Dr Ez [address] [place] [address] PCP - General Internal Medicine 06/28/22 11/30/22 [facility], [address] [place] [address] PCP - General Internal Medicine 12/01/22 12/01/22 Johana Lizarraga MD [place] [address] PCP - General Internal Medicine 12/02/22 12/29/22 [facility], [address] [place] [address] PCP - General Internal Medicine 12/30/22 12/30/22 Phil Rodriguez MD [address] [place] [address] PCP - General Internal Medicine 01/04/23 01/10/23 [facility], [address] [place] [address] PCP - General Internal Medicine 01/11/23 02/01/24 Lizbeth Schilling APRN [address] [place] [address] PCP - General Internal Medicine 02/02/24 02/11/24 [facility], [address] [place] [address] PCP - General Internal Medicine 02/12/24 Triston Bailey MD [address] [place] [address] [place] [address] Pin Ball Machine Mechanic Cardiovascular Disease 06/10/20 Remedios Warren PA [place] [address] Cardiology 12/08/21 Umang Corado NP [address] [place] [address] [place] [address] Specialist Cardiology 02/23/22 Chanda Soria NP [address] [place] [address] Cardiology 08/11/22 Loreto Albert MD [address] [place] [address] Internal Medicine 04/13/23 documented as of this encounter
--- OUTSIDE RECORDS SUMMARY | 2024-09-10 15:36 | XMS_ITS | Encounter Summary ---
Author Organization [facility] Address [address] [place] [address] Care Team Providers Care Cargo Agent Name Role Phone Phil Rodriguez MD Primary Care Provider Unavail able Tony Rodriguez MD Primary Care Provider Unavail able Phil Rodriguez MD Primary Care Provider Unavail able Ashley oRsado APRN Primary Care Provider Unav ailable Triston Bailey MD Unavailable Remedios Warren Unavailable Unavailable Umang Corado PROGRAM PROFESSIONAL Unavailable Johana Lizarraga MD Primary Care Provider Chanda Soria NP Unavailable Susie Starr DO Primary Care Provider [phone] Johana Lizarraga MD Primary Care Provider Susie Starr DO Primary Care Provider [phone] Phil Rodriguez MD Primary Care Provider Unavail able Susie Starr DO Primary Care Provider [phone] Loreto Albert MD Unavailable [phone] Lizbeth Schilling APRN Primary Care Provider Susie Starr DO Primary Care Provider [phone] Encounter Details Date Type Department Care Team Description 03/28/2013 Wire Bender Report Medical Records [address] [place] [address] Alok Keith MD Social History Tobacco Use [...] How often do you attend chur or rastafari services? More than 4 times per year 04/13/2023 Do you belong to any clubs o r organizations such as mormonism groups, unions, fraternal or athletic groups, or [...] on filedocumented in this encounter Care Teams Cargo Agent Relationship Specialty Start Date End Date Phil Rodriguez MD PCP - General 03/07/05 12/04/14 Tony Rodriguez MD PCP - General Internal Medicine 12/05/14 12/14/14 Phil Rodriguez MD PCP - General Internal Medicine 12/15/14 09/19/19 Ashley Rosado APRN PCP - General Internal Medicine 09/20/19 06/27/22 Johana Lizarraga MD [address] [place] [address] [place] [address] PCP - General Internal Medicine 06/28/22 11/30/22 [facility], [address] [place] [address] PCP - General Internal Medicine 12/01/22 12/01/22 Johana Lizarraga MD [address] [place] [address] [place] [address] PCP - General Internal Medicine 12/02/22 12/29/22 [facility] [address] [place] [address] PCP - General Internal Medicine 12/30/22 12/30/22 Phil Rodriguez MD PCP - General Internal Medicine 01/04/23 01/10/23 [facility], [address] [place] [address] PCP - General Internal Medicine 01/11/23 02/01/24 Lizbeth Schilling, VISUAL C DEVELOPER [address] [place] [address] PCP - General Internal Medicine 02/02/24 02/11/24 [facility], [address] [place] [address] PCP - General Internal Medicine 02/12/24 Triston Bailey MD [address] [place] [address] [place] [address] Early Childhood Worker Cardiovascular Disease 06/10/20 Remedios Warren PA [address] [place] [address] Cardiology 12/08/21 Umang Corado NP [address] [place] [address] [place] [address] Specialist Cardiology 02/23/22 Chanda Soria NP [address] [place] [address] Breann Hui [address] [place] [address] Cardiology 08/11/22 Loreto Albert MD [address] [place] [address] Internal Medicine 04/13/23 documented as of this encounter
--- OUTSIDE RECORDS SUMMARY | 2024-09-10 15:36 | XMS_ITS | Encounter Summary ---
Author Organization [facility] Address [address] [place] [address] Care Team Providers Care Stamp Classifier Name Role Phone Ashley Rosado APRN Primary Care Provider Triston Franks MD Unavailable [phone] Remedios Warren Unavailable Unavailable Umang Corado CERAMIC ARTIST Unavailable Johana Lizarraga MD Primary Care Provider Chanda Soria NP Unavailable Susie Starr DO Primary Care Provider Johana Lizarraga MD Primary Care Provider Susie Starr DO Primary Care Provider Phil Rodriguez MD Primary Care Provider Unavail able Susie Starr DO Primary Care Provider [phone] Loreto Albert MD Unavailable [phone] Lizbeth Schilling APRN Primary Care Provider [phone] Susie Starr DO Primary Care Provider [phone] Encounter Details Date Type Department Care Team Description 05/07/2022 Hospital Medical Records [address] [place] [address] Social History Tobacco Use Types Packs/Day Years [...] How often do you attend chur or hoahaoism services? More than 4 times [...] place to sleep or slept in a fci (including now)? No 04/13/2023 Sex Assigned at Date Recorded Not on file Job Start Date Occupation Industry Not on file Not on file Not on file COVID-19 Exposure Response Date Recorded In the last 10 days, have yo u been in contact with someone who was confirmed or suspected to have Coronavirus/COVID-19? No / Unsure 05/02/2022 10:48 AM EST documented as of this encounter Plan of Treatment Not on file documented as of this encounter Procedures Procedure Name Priority Date/Time Associated Diagnosis Comments OUTSIDE LAB Routine 05/07/2022 documented in this encounter Results * OUTSIDE LAB (05/07/2022) Provider Abstract LAB documented in this encounter Visit Diagnoses Not on filedocumented in this encounter Care Teams Stamp Classifier Relationship Specialty Start Date End Date Ashley Rosado APRN PCP - General Internal Medicine 09/20/19 06/27/22 Johana Lizarraga MD [address] [place] [address] [place] [address] PCP - General Internal Medicine 06/28/22 11/30/22 Zacharyemily Susie, DO [address] [place] [address] PCP - General Internal Medicine 12/01/22 12/01/22 Johana Lizarraga MD [address] [place] [address] [place] [address] PCP - General Internal Medicine 12/02/22 12/29/22 Lisa Starrmana, DO [address] [facility] [place] [address] PCP - General Internal Medicine 12/30/22 12/30/22 Phil Rodriguez MD [address] [place] [address] PCP - General Internal Medicine 01/04/23 [facility]10[facility] [address] [place] [address] PCP - General Internal Medicine 01/11/23 02/01/24 Lizbeth Schilling, MELISSA [address] [place] [address] PCP - General Internal Medicine 02/02/24 02/11/24 Lisa Starrmana, DO [address] [place] [address] PCP - General Internal Medicine 02/12/24 Triston Bailey MD [address] [place] [address] [place] [address] Health Care Coach Cardiovascular Disease 06/10/20 Remedios Warren PA [address] [place] [address] [place] [address] Cardiology 12/08/21 Umang Corado NP [address] [place] [address] [place] [address] Specialist Cardiology 02/23/22 Chanda Soria NP [address] [place] [address] Breann Hui [address] [place] [address] Cardiology 08/11/22 Loreto Albert MD [address] [place] [address] Internal Medicine 04/13/23 documented as of this encounter
--- OUTSIDE RECORDS SUMMARY | 2024-09-10 15:36 | XMS_ITS | Encounter Summary ---
Author Organization [facility] Address [address] [place] [address] Care Team Providers Care Manager Clinical Services Name Role Phone Pihl Rodriguez MD Primary Care Provider Unavail able Ashley Rosado APRN Primary Care Provider Unav ailable Triston Bailey MD Unavailable [phone] Remedios Warren PA Unavailable Unavailable Umang Corado CITY RECORDER Unavailable [phone] Johana Lizarraga MD Primary Care Provider Chanda Soria CITY RECORDER Unavailable Susie Starr DO Primary Care Provider Johana Lizarraga MD Primary Care Provider Susie Starr DO Primary Care Provider Phil Rodriguez MD Primary Care Provider Unavail able Susie Starr DO Primary Care Provider [phone] Loreto Albert MD Unavailable Lizbeth Schilling APRN Primary Care Provider [phone] Susie Starr DO Primary Care Provider [phone] Encounter Details Date Type Department Care Team Description 01/04/2019 [facility] Medical Records [address] [place] [address] Abstract, Provider Social History Tobacco Use Types [...] often do you attend [facility] or anglican services? More than 4 times per year 04/13/2023 Do you belong to any clubs o r organizations such as jehovah's witness groups, unions, fraternal or athletic groups, or [...] filedocumented in this encounter Care Teams Manager Clinical Services Relationship Specialty Start Date End Date Phil Rodriguez MD PCP - General Internal Medicine 12/15/14 09/19/19 Ashley Rosado APRN PCP - General Internal Medicine 09/20/19 06/27/22 Johana Lizarraga MD [address] [place] [address] [place] [address] PCP - General Internal Medicine 06/28/22 11/30/22 Susie Starr, DO [address] [place] [address] [place] [address] PCP - General Internal Medicine 12/01/22 12/01/22 Johana Lizarraga MD [address] [place] [address] [place] [address] PCP - General Internal Medicine 12/02/22 12/29/[address] [address] PCP - General Internal Medicine 12/30/22 12/30/22 Phil Rodriguez MD PCP - General Internal Medicine 01/04/23 01/10/[address] [address] PCP - General Internal Medicine 01/11/23 02/01/24 Lizbeth Schilling, FABRICATION LEAD [address] [place] [address] PCP - General Internal Medicine 02/02/24 02/11/[address] [address] PCP - General Internal Medicine 02/12/24 Triston Bailey MD [address] [place] [address] [place] [address] Mutuel Teller Cardiovascular Disease 06/10/20 Remedios Warren PA [address] [place] [address] [place] [address] Cardiology 12/08/21 Umang Corado NP [address] [place] [address] [place] [address] Specialist Cardiology 02/23/22 Chanda Soria NP [address] [place] [address] [place] [address] Cardiology 08/11/22 Loreto Albert MD [address] [place] [address] Internal Medicine 04/13/23 documented as of this encounter
--- OUTSIDE RECORDS SUMMARY | 2024-09-10 15:36 | XMS_ITS | Encounter Summary ---
Author Organization [facility] Address [address] [place] [address] Care Team Providers Care Production Assembler Name Role Phone Phil Rodriguez MD Primary Care Provider Unavail able Ashley Rosado APRN Primary Care Provider Unav ailable Triston Bailey MD Unavailable Remedios Warren PA Unavailable Unavailable Umang Corado NP Unavailable Johana Lizarraga MD Primary Care Provider Chanda Soria SHIPPING TRACK SUPERVISOR Unavailable Susie Starr DO Primary Care Provider Johana Lizarraga MD Primary Care Provider Susie Starr DO Primary Care Provider Phil Rodriguez MD Primary Care Provider Unavail able Susie Starr DO Primary Care Provider [phone] Loreto Albert MD Unavailable [phone] Lizbeth Schilling APRN Primary Care Provider [phone] Susie Starr DO Primary Care Provider [phone] Encounter Details Date Type Department Care Team Description 11/07/2016 Knife Sharpener Report Medical Records [address] [place] [address] Triston Allred MD, MD Social History Tobacco [...] you attend [facility] or church services? More than 4 times per year 04/13/2023 Do you belong to any clubs o r organizations such as temple groups, unions, fraternal or athletic groups, or [...] on filedocumented in this encounter Care Teams Production Assembler Relationship Specialty Start Date End Date Phil Rodriguez MD PCP - General Internal Medicine 12/15/14 09/19/19 Ashley Rosado APRN PCP - General Internal Medicine 09/20/19 06/27/22 Johana Lizarraga MD [address] [place] [address] [place] [address] PCP - General Internal Medicine 06/28/22 11/30/22 Susie Starr, DO [address] [place] [address] PCP - General Internal Medicine 12/01/22 12/01/22 Johana Lizarraga MD [address] [place] [address] [place] [address] PCP - General Internal Medicine 12/02/22 12/29/22 [facility] [address] [place] [address] PCP - General Internal Medicine 12/30/22 12/30/22 Phil Rodriguez MD PCP - General Internal Medicine 01/04/23 01/10/[address] [address] PCP - General Internal Medicine 01/11/23 02/01/24 Lizbeth Schilling, TOBACCO STRIPPER HAND [address] [place] [address] PCP - General Internal Medicine 02/02/24 02/11/[address] [address] PCP - General Internal Medicine 02/12/24 Triston Bailey MD [address] [place] [address] [place] [address] Appliance Assembler Cardiovascular Disease 06/10/20 Remedios Warren PA [address] [place] [address] [place] [address] Cardiology 12/08/21 Umang Corado NP [address] [place] [address] [place] [address] Specialist Cardiology 02/23/22 Chanda Soria NP [address] [place] [address] [place] [address] Cardiology 08/11/22 Loreto Albert MD [address] [place] [address] Internal Medicine 04/13/23 documented as of this encounter
--- OUTSIDE RECORDS SUMMARY | 2024-09-10 15:36 | XMS_ITS | Encounter Summary ---
Author Organization [facility] Address [address] [place] [address] Care Team Providers Care Scale Reclamation Tender Name Role Phone Phil Rodriguez MD Primary Care Provider Unavail able Tony Rodriguez MD Primary Care Provider Unavail able Phil Rodriguez MD Primary Care Provider Unavail able Ashley Rosado APRN Primary Care Provider Unav ailable Triston Bailey MD Unavailable Remedios Warren Unavailable Unavailable Umang Corado CURRICULUM ASSISTANT PRINCIPAL Unavailable [phone] Johana Lizarraga MD Primary Care Provider Chanda Soria NP Unavailable Susie Starr DO Primary Care Provider [phone] Johana Lizarraga MD Primary Care Provider Susie Starr DO Primary Care Provider [phone] Phil Rodriguez MD Primary Care Provider Unavail able Susie Starr DO Primary Care Provider [phone] Loreto Albert MD Unavailable [phone] Lizbeth Schilling APRN Primary Care Provider Susie Starr DO Primary Care Provider [phone] Encounter Details Date Type Department Care Team Description 07/28/2011 Quilt Maker Report Medical Records [address] [place] [address] Alok Keith MD Social History Tobacco Use [...] How often do you attend chur or episcopal services? More than 4 times per year [...] on filedocumented in this encounter Care Teams Scale Reclamation Tender Relationship Specialty Start Date End Date Phil Rodriguez MD PCP - General 03/07/05 12/04/14 Tony Rodriguez MD PCP - General Internal Medicine 12/05/14 12/14/14 Phil Rodriguez MD PCP - General Internal Medicine 12/15/14 09/19/19 Ashley Rosado APRN PCP - General Internal Medicine 09/20/19 06/27/22 Johana Lizarraga MD [address] [place] [address] [place] [address] PCP - General Internal Medicine 06/28/22 11/30/22 [facility], [address] [place] [address] PCP - General Internal Medicine 12/01/22 12/01/22 Johana Lizarraga MD [address] [place] [address] [place] [address] PCP - General Internal Medicine 12/02/22 12/29/22 [facility] [address] [place] [address] PCP - General Internal Medicine 12/30/22 12/30/22 Phil Rodriguez MD PCP - General Internal Medicine 01/04/23 01/10/23 [facility], [address] [place] [address] PCP - General Internal Medicine 01/11/23 02/01/24 Lizbeth Schilling, PROFESSIONAL SERVICES SPECIALIST [address] [place] [address] PCP - General Internal Medicine 02/02/24 02/11/24 [facility], [address] [place] [address] PCP - General Internal Medicine 02/12/24 Triston Bailey MD [address] [place] [address] [place] [address] [employer]ons Cardiovascular Disease 06/10/20 Remedios Warren PA [address] [place] [address] Cardiology 12/08/21 Umang Corado NP [address] [place] [address] [place] [address] Specialist Cardiology 02/23/22 Chanda Soria NP [address] [place] [address] Breann Hui [address] [place] [address] Cardiology 08/11/22 Loreto Albert MD [address] [place] [address] Internal Medicine 04/13/23 documented as of this encounter
--- OUTSIDE RECORDS SUMMARY | 2024-09-10 15:36 | XMS_ITS | Encounter Summary ---
Author Organization [facility] Address [address] [place] [address] Care Team Providers Care Clinical Medical Assistant Name Role Phone Phil Rodriguez MD Primary Care Provider Unavail able Ashley Rosado APRN Primary Care Provider Unav ailable Triston Bailey MD Unavailable Remedios Warren PA Unavailable Unavailable Umang Corado M1A1 TANK CREWMAN Unavailable Johana Lizarraga MD Primary Care Provider Chanda Soria M1A1 TANK CREWMAN Unavailable Susie Starr DO Primary Care Provider Johana Lizarraga MD Primary Care Provider Susie Starr DO Primary Care Provider Phil Rodriguez MD Primary Care Provider Unavail able Susie Starr DO Primary Care Provider [phone] Loreto Albert MD Unavailable [phone] Lizbeth Schilling APRN Primary Care Provider [phone] Susie Starr DO Primary Care Provider [phone] Encounter Details Date Type Department Care Team Description 08/15/2016 SCAN Medical Records [address] [place] [address] Abstract, Provider Social History Tobacco Use Types [...] How often do you attend [facility] or confucianist services? More than 4 times per year 04/13/2023 Do you belong to any clubs o r organizations such as pentecostal groups, unions, fraternal or athletic groups, or [...] Name Priority Date/Time Associated Diagnosis Comments OUTSIDE PLAIN FILM Routine 07/25/2016 documented in this encounter Results * OUTSIDE PLAIN FILM (07/25/2016) Provider Abstract RADIOLOGY documented in this encounter Visit Diagnoses Not on filedocumented in this encounter Care Teams Clinical Medical Assistant Relationship Specialty Start Date End Date Phil Rodriguez MD PCP - General Internal Medicine 12/15/14 09/19/19 Ashley Rosado APRN PCP - General Internal Medicine 09/20/19 06/27/22 Johana Lizarraga MD [address] [place] [address] [place] [address] PCP - General Internal Medicine 06/28/22 11/30/22 [facility] [address] [place] [address] PCP - General Internal Medicine 12/01/22 12/01/22 Johana Lizarraga MD [address] [place] [address] [place] [address] PCP - General Internal Medicine 12/02/22 12/29/22 [facility] [address] [place] [address] PCP - General Internal Medicine 12/30/22 12/30/22 Phil Rodriguez MD PCP - General Internal Medicine 01/04/23 01/10/23 [facility], [address] [place] [address] PCP - General Internal Medicine 01/11/23 02/01/24 Lizbeth Schilling, MELISSA [address] [place] [address] PCP - General Internal Medicine 02/02/24 02/11/24 [facility], [address] [place] [address] PCP - General Internal Medicine 02/12/24 Triston Bailey MD [address] [place] [address] [place] [address] Business Support Coordinator Cardiovascular Disease 06/10/20 Remedios Warren PA [address] [facility] [place] [address] Cardiology 12/08/21 Umang Corado NP [address] [place] [address] Dr Ez [address] [place] [address] Specialist Cardiology 02/23/22 Chanda Soria NP [address] [place] [address] [address] Cardiology 08/11/22 Loreto Albert MD [address] [place] [address] Internal Medicine 04/13/23 documented as of this encounter
--- OUTSIDE RECORDS SUMMARY | 2024-09-10 15:36 | XMS_ITS | Encounter Summary ---
Author Organization [facility] Address [address] [place] [address] Care Team Providers Care Cloth Shrinking Tester Name Role Phone Fernanda Robins MD Primary Care Provider [phone] Reason for Visit * Reason Onset Date Comments information needed 08/28/2024 Encounter Details Date Type Department Care Team (Late st Contact Info) Description 08/28/2024 Telephone Internal Medicine - [facility] [address] [place] [address] Fernanda Robins MD [address] [place] [phone] information needed Social History Tobacco Use Types Packs/Day Years [...] your loved ones. For example, child care supervisor or elderly care for an older adult? [...] as of this encounter Progress Notes * Florecita Longoria MA - 09/05/2024 2:01 PM EDT FYI: KIRAN Falk message given to patient , 1 month schedule for 10/11/24 . [facility] Case Manger is Justin Murphy message left with Nam Alfred over ref# [id number] . Nam Alfred sent message for case manger to call KIRAN Falk tomorrow 09/06/24 8:30 am - 5 pm. Drew, labs printed and hand manually faxed back to [facility] fax# [phone] . KA RMA * Deya Wooten NP - 09/05/2024 12:38 PM EDT Thank you, that was very informative. I have a plan to work with this patient due to her increase anxiety and depression as per my last note of her visit on 08.27.23. I had let patient know about me trying to work with her to make her better. Please remind her and let her know I am committed to doing this for her. Please book patient in 1 month from last visit. I want to work with her to get her off the Lorazepam medication slowly and get her on other medication that will help her current mental health and emotional baseline. Also, I am putting in a referral for snf services to visit patient twice daily for medication administration and management. The people I am sending her to are very good and compassionate. They will help her so much! Please let the patient know about this and tell her that I am working with her as promised on the last visit. I want her to get support in the community also to ensure wellbeing and health improvement. Please find out the name of the [facility] lawn care worker, I would like to speak with her. Ask for her emailplease. Thank you. * Merline Xiao MA - 09/02/2024 1:44 PM EDT Spoke with Mayr, she the Consumer Experience Consultant that visits with pt, per Mary she know that pt has the benzodiazepines in home but not sure if she taking. Per VENDING TECHNICIAN her concerned is if she is taking it and she stopthat she will have with draws and does not want her to have side effects. Mary also stated theyhave discussed her cutting back on dose of medication and pt would like to discuss at upcoming appt * Deya Wooten NP - 09/02/2024 1:00 PM EDT Please inquire from Mary if she is the visiting nurse? Does patient have a visiting nurse? How do you know the patient takes med daily. Please advise, thank you. Make appt with PCP for patient to get evaluation from PCP on med. Thank you. * Roya Sharpe - 08/28/2024 1:21 PM EDT Mary from [facility] called for pt. Questing our testing for benzodiazepines. Pt tested negative, asking how we test because pt take them everyday. documented in this encounter Plan of Treatment Upcoming Encounters Date Type Department Care Team (Late st Contact Info) Description 09/11/2024 1:30 PM EDT Consult Orthopedic Surgery - [address] [phone] Mao Mitchell MD [address] [place] [address] 09/12/2024 11:30 AM EDT Office Visit Pulmonolgy - [address] [phone] Denia Mcdonnell MD [address] [address] 09/30/2024 2:45 PM EDT Consult General Surgery - [address] [phone] Sarthak Ren MD [address] [place] [address] 10/11/2024 1:00 PM EDT Office Visit Internal Medicine - [address] [phone] Deya Henriquez, KIRAN [address] [place] [address] 10/28/2024 11:15 AM EDT Office Visit Internal Medicine - [address] [phone] Deya Henriquez, KIRAN [address] [place] [address] 10/31/2024 2:00 PM EDT Office Visit Endocrinology - [address] [phone] Sarah Cobian PA [address] [place] [address] 11/26/2024 1:00 PM EDT Office Visit Internal Medicine - [address] [phone] Fernanda Robins MD [address] [place] [address] documented as of this encounter Visit Diagnoses Not on filedocumented in this encounter Additional Health Concerns Assessment Noted Time PHQ-9 Depression Total Score: 1 07/26/19 2:23 PM EDT documented as of this encounter Care Teams Cloth Shrinking Tester Relationship Specialty Start Date End Date Fernanda Robins MD [address] [place] [address] PCP - General Internal Medicine 08/22/24 documented as of this encounter
--- OUTSIDE RECORDS SUMMARY | 2024-09-10 15:36 | XMS_ITS | Encounter Summary ---
Author Organization [facility] Address [address] [place] [address] Care Team Providers Care Dust Sampler Name Role Phone Triston Bailey MD Unavailable Remedios Warren Unavailable Unavailable Umang Corado PIT INSPECTOR Unavailable Johana Lizarraga MD Primary Care Provider Chanda Soria PIT INSPECTOR Unavailable [phone] Susie Starr DO Primary Care Provider Johana Lizarraga MD Primary Care Provider [phone] Susie Starr DO Primary Care Provider Phil Rodriguez MD Primary Care Provider Unavail able Susie Starr DO Primary Care Provider [phone] Loreto Albert MD Unavailable [phone] Lizbeth Schilling APRN Primary Care Provider [phone] Susie Starr DO Primary Care Provider [phone] Encounter Details Date Type Department Care Team Description 10/25/2022 Ironer Or Presser Report Medical Records [address] [place] [address] Abstract, Provider Social History Tobacco Use Types [...] do you attend [facility] or taoism services? More than 4 times per year [...] on filedocumented in this encounter Care Teams Dust Sampler Relationship Specialty Start Date End Date Johana Lizarraga MD [address] [place] [address] [place] [address] PCP - General Internal Medicine 06/28/22 11/30/22 Susie Starr, DO [address] [place] [address] PCP - General Internal Medicine 12/01/22 12/01/22 Johana Lizarraga MD [address] [place] [address] [place] [address] PCP - General Internal Medicine 12/02/22 12/29/[address] [facility], [address] [place] [address] PCP - General Internal Medicine 12/30/22 12/30/22 Phil Rodriguez MD [address] [place] [address] PCP - General Internal Medicine 01/04/23 01/10/[address] [facility], [address] [place] [address] PCP - General Internal Medicine 01/11/23 02/01/24 Lizbeth Schilling APRN [address] [place] [address] PCP - General Internal Medicine 02/02/24 02/11/[address] [facility], [address] [place] [address] PCP - General Internal Medicine 02/12/24 Triston Bailey MD [address] [place] [address] [place] [address] Metal Cabinet Finisher Cardiovascular Disease 06/10/20 Remedios Warren PA [address] [place] [address] [place] [address] Cardiology 12/08/21 Umang Corado NP [address] [place] [address] [place] [address] Specialist Cardiology 02/23/22 Chanda Soria NP [address] [place] [address] Bre[place] [address] Cardiology 08/11/22 Loreto Albert MD [address] [place] [address] Internal Medicine 04/13/23 documented as of this encounter
--- OUTSIDE RECORDS SUMMARY | 2024-09-10 15:36 | XMS_ITS | Encounter Summary ---
Author Organization [facility] Address [address] [place] [address] Care Team Providers Care Academic Computing Director Name Role Phone Triston Bailey MD Unavailable Remedios Warren Unavailable Unavailable Umang Corado STREET LIGHT INSPECTOR Unavailable Chanda Soria NP Unavailable [phone] Susie Starr DO Primary Care Provider Loreto Albert MD Unavailable [phone] Lizbeth Schilling APRN Primary Care Provider [phone] Susie Starr DO Primary Care Provider Encounter Details Date Type Department Care Team Description 01/12/2023 Orders Only Internal Medicine - [place] 175 [facility], [address] [place] [address] Johana Lizarraga MD [address] [place] [phone] DM (diabetes mellitus), type 2 with [...] you attend [facility] or muslim services? More than 4 times per year 04/13/2023 Do you belong to any clubs o r organizations such as jain groups, unions, fraternal or athletic groups, or [...] 100 mg/dL 02/13/2023 4:54 PM EDT [facility] Comment:Reference range appl icable to fasting specimens only Blood Urea Nitrogen 23 5 - 25 mg/dL 02/13/2023 4:54 PM EDT [facility] CREAT 1.43(H) 0.5 - 1.1 mg/dL 02/13/2023 [...] to patient->Immediate Johana Lizarraga MD LAB [facility] * (ABNORMAL) HEMOGLOBIN A1C (02/13/2023 1:21 PM [...] (HCC) documented in this encounter Care Teams Academic Computing Director Relationship Specialty Start Date End Date Susie [address] [address] PCP - General Internal Medicine 01/11/23 02/01/24 Lizbeth Schilling APRN [address] [place] [address] PCP - General Internal Medicine 02/02/24 02/11/[address] [address] PCP - General Internal Medicine 02/12/24 Triston Bailey MD [address] [place] [address] [place] [address] Crop Or Livestock Tenant Farmer Cardiovascular Disease 06/10/20 Remedios Warren PA [address] [place] [address] [place] [address] Cardiology 12/08/21 Umang Corado NP [address] [place] [address] [place] [address] Specialist Cardiology 02/23/22 Chanda Soria NP [address] [place] [address] [place] [address] Cardiology 08/11/22 Loreto Albert MD [address] [place] [address] Internal Medicine 04/13/23 documented as of this encounter
--- OUTSIDE RECORDS SUMMARY | 2024-09-10 15:36 | XMS_ITS | Encounter Summary ---
Author Organization [facility] Address [address] [place] [address] Care Team Providers Care Site Project Manager Name Role Phone Ashley Rosado APRN Primary Care Provider Unav Triston Jaffe MD Unavailable Remedios Warren Unavailable Unavailable Umang Corado SPECIALIZED DEVELOPER Unavailable Johana Lizarraga MD Primary Care Provider Chanda Soria NP Unavailable Susie Starr DO Primary Care Provider Johana Lizarraga MD Primary Care Provider Susie Starr DO Primary Care Provider Phil Rodriguez MD Primary Care Provider Unavail able Susie Starr DO Primary Care Provider Loreto Albert MD Unavailable [phone] Lizbeth Schilling APRN Primary Care Provider Susie Starr DO Primary Care Provider [phone] Reason for Visit * Reason Onset Date Comments Faxed Order 05/06/2022 Patricia Kirkpatrick P.CManoj Encounter Details Date Type Department Care Team Description 05/06/2022 Telephone Adult Medicine [facility] [address] [place] [address] Ashley Rosado APRN Faxed Order [...] How often do you attend [facility] or orthodox services? More than 4 [...] Telephone Encounter - Sabra Portillo Pop - 05/06/2022 2:45 PM EST 2nd REQUEST - Faxed order received by [facility]. Order placed in Ashley Rosado's bin for signature. Please fax back to [phone] after completion. ?? documented in this encounter Plan of Treatment Not on file documented as of this encounter Visit Diagnoses Not on filedocumented in this encounter Care Teams Site Project Manager Relationship Specialty Start Date End Date Ashley Rosado APRN PCP - General Internal Medicine 09/20/19 06/27/22 Johana Lizarraga MD [address] [place] [address] [place] [address] PCP - General Internal Medicine 06/28/22 11/30/22 Susie Starr, [address] [place] [address] PCP - General Internal Medicine 12/01/22 12/01/22 Johana Lizarraga MD [address] [place] [address] [place] [address] PCP - General Internal Medicine 12/02/22 12/29/22 Susie Starr, [address] [place] [address] PCP - General Internal Medicine 12/30/22 12/30/22 Phil Rodriguez MD [address] [place] [address] PCP - General Internal Medicine 01/04/23 01/10/23 Susie Starr, [address] [place] [address] PCP - General Internal Medicine 01/11/23 02/01/24 Lzibeth Schilling APRN [address] [place] [address] PCP - General Internal Medicine 02/02/24 02/11/24 Wilfred Starra, DO [address] [facility] [place] [address] PCP - General Internal Medicine 02/12/24 Triston Bailey MD [address] [place] [address] [place] [address] Program Counselor Cardiovascular Disease 06/10/20 Remedios Warren PA [address] [place] [address] [place] [address] Cardiology 12/08/21 Umang Corado NP [address] [place] [address] [place] [address] Specialist Cardiology 02/23/22 Chanda Soria, KIRAN [address] [place] [address] [address] Cardiology 08/11/22 Loreto Albert MD [address] [place] [address] Internal Medicine 04/13/23 documented as of this encounter
--- OUTSIDE RECORDS SUMMARY | 2024-09-10 15:36 | XMS_ITS | Encounter Summary ---
Author Organization [facility] Address [address] [place] [address] Care Team Providers Care Pl Sql Programmer Name Role Phone Phil Rodriguez MD Primary Care Provider Unavail able Tony Rodriguez MD Primary Care Provider Unavail able Phil Rodriguez MD Primary Care Provider Unavail able Ashley Rosado APRN Primary Care Provider Unav ailable Triston Bailey MD Unavailable [phone] Remedios Warren Unavailable Unavailable Umang Corado RECOATING MACHINE OPERATOR Unavailable Johana Lizarraga MD Primary Care Provider Chanda Soria RECOATING MACHINE OPERATOR Unavailable Susie Starr DO Primary Care Provider [phone] Johana Lizarraga MD Primary Care Provider Susie Starr DO Primary Care Provider [phone] Phil Rodriguez MD Primary Care Provider Unavail able Susie Starr DO Primary Care Provider [phone] Loreto Albert MD Unavailable [phone] Lizbeth Schilling APRN Primary Care Provider Susie Starr DO Primary Care Provider [phone] Encounter Details Date Type Department Care Team Description 06/01/2011 [facility] Teacher Report Medical Records [address] [place] [address] Social History Tobacco Use Types Packs/Day Years [...] How often do you attend [facility] or muslim services? More than 4 [...] on filedocumented in this encounter Care Teams Pl Sql Programmer Relationship Specialty Start Date End Date Phil Rodriguez MD PCP - General 03/07/05 12/04/14 Tony Rodriguez MD PCP - General Internal Medicine 12/05/14 12/14/14 Phil Rodriguez MD PCP - General Internal Medicine 12/15/14 09/19/19 Ashley Rosado APRN PCP - General Internal Medicine 09/20/19 06/27/22 Johana Lizarraga MD [address] [place] [address] PCP - General Internal Medicine 06/28/22 11/30/22 [facility] [address] [place] [address] PCP - General Internal Medicine 12/01/22 12/01/22 Johana Lizarraga MD [address] [place] [address] PCP - General Internal Medicine 12/02/22 12/29/22 [facility] [address] [place] [address] PCP - General Internal Medicine 12/30/22 12/30/22 Phil Rodriguez MD PCP - General Internal Medicine 01/04/23 01/10/23 [facility], [address] [place] [address] PCP - General Internal Medicine 01/11/23 02/01/24 Lizbeth Schilling, MELISSA [address] [place] [address] PCP - General Internal Medicine 02/02/24 02/11/24 [facility], [address] [place] [address] PCP - General Internal Medicine 02/12/24 Triston Bailey MD [address] [place] [address] [place] [address] Manager Of Loss Prevention Operations Cardiovascular Disease 06/10/20 Remedios Warren PA [address] [place] [address] Cardiology 12/08/21 Umang Corado NP [address] [place] [address] [place] [address] Specialist Cardiology 02/23/22 Chanda Soria NP [address] [place] [address] [address] Cardiology 08/11/22 Loreto Albert MD [address] [place] [address] Internal Medicine 04/13/23 documented as of this encounter
--- OUTSIDE RECORDS SUMMARY | 2024-09-10 15:36 | XMS_ITS | Encounter Summary ---
Author Organization [facility] Address [address] [place] [address] Care Team Providers Care Road Roller Operator Name Role Phone Triston Bailey MD Unavailable Remedios Warren Unavailable Unavailable Umang Corado WATER SOFTENER SERVICER Unavailable Chanda Soria NP Unavailable Susie Starr DO Primary Care Provider Loreto Albert MD Unavailable [phone] Lizbeth Schilling APRN Primary Care Provider Susie Starr DO Primary Care Provider [phone] Reason for Visit * Reason Onset Date Comments Error 01/11/2023 Encounter Details Date Type Department Care Team Description 01/11/2023 Telephone Adult Medicine [address] [phone] Susie Starr DO [address] [place], [place] [phone] Error Social History Tobacco Use Types Packs/Day [...] week 04/13/2023 How often do you attend [facility] or muslim services? More than 4 [...] filedocumented in this encounter Care Teams Road Roller Operator Relationship Specialty Start Date End Date Susie Starr DO [address] [place] [address] PCP - General Internal Medicine 01/11/23 02/01/24 Lizbeth Schilling APRN [address] [place] [address] PCP - General Internal Medicine 02/02/24 02/11/24 Ro Susie, DO [address] [place] [address] PCP - General Internal Medicine 02/12/24 Triston Bailey MD [address] [place] [address] [place] [address] Scallop Binder Cardiovascular Disease 06/10/20 Remedios Warren, STEPHAN [address] [place] [address] [place] [address] Cardiology 12/08/21 Umang Corado NP [address] [place] [address] [place] [address] Specialist Cardiology 02/23/22 Chanda Soria NP [address] [place] [address] [address] Cardiology 08/11/22 Loreto Albert MD [address] [place] [address] Internal Medicine 04/13/23 documented as of this encounter
--- OUTSIDE RECORDS SUMMARY | 2024-09-10 15:36 | XMS_ITS | Encounter Summary ---
Author Organization Address [address] [place] [address] Care Team Providers Care Senior Inspector Name Role Phone Fernanda Robins MD Primary Care Provider [phone] Reason for Visit * Reason Onset Date Comments Prior Authorization 08/27/2024 Encounter Details Date Type Department Care Team (Late st Contact Info) Description 08/27/2024 Telephone Internal Medicine - [place] [address] [place] [address] Fernanda Robins MD [address] [place] [phone] Prior Authorization Social History Tobacco Use Types Packs/Day Years [...] ed Within the last 3 months, ho karthikeyan many times did you visit the emergency [...] care for your loved ones. For example, childcare aide or elderly care for an older adult? [...] as of this encounter Progress Notes * Sierra Bearden MA - 09/04/2024 3:46 PM EDT Lidocaine patch not covered. 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 Is this a Cover My Meds request: Yes -- Rasmussen Code [id number] Name of Medication lidocaine (LIDODERM) 5 % patch Dose of Medication 5 % What is the RX # from the faxed refill? How does patient take this med? Apply 1 patch topically 1 (one) time each day. Apply to painful area 12 hours per day, remove for 12 hours. What Pharmacy did the fax come from: Pharmacy fax #: [id number] [place], [place] - [address] [facility] [employer] Party Information from fax: What Prescription Plan does the patient have? BIN/PCN if applicable: Cardholder ID: Person Code: Relationship Code: Help desk phone: documented in this encounter Plan of Treatment Upcoming Encounters Date Type Department Care Team ([facility] Contact Info) Description 09/11/2024 1:30 PM EDT Consult Orthopedic Surgery - [address] [phone] Mao Mitchell MD [address] [place] [address] 09/12/2024 11:30 AM EDT Office Visit Pulmonolgy - [address] [place] [phone] Denia Mcdonnell MD [address] [place] [address] 200 [place] [address] 09/30/2024 2:45 PM EDT Consult General Surgery - [place] [address] [phone] Sarthak Ren MD [address] [address] 10/11/2024 1:00 PM EDT Office Visit Internal Medicine - [address] [phone] Deya Henriquez, KIRAN [address] [place] [address] 10/28/2024 11:15 AM EDT Office Visit Internal Medicine - [address] [phone] Deya Henriquez, KIRAN [address] [place] [address] 10/31/2024 2:00 PM EDT Office Visit Endocrinology - [address] [phone] Sarah Cobian PA [address] [place] [address] 11/26/2024 1:00 PM EDT Office Visit Internal Medicine - [address] [phone] Fernanda Robins MD [address] [place] [address] documented as of this encounter Visit Diagnoses Not on filedocumented in this encounter Additional Health Concerns Assessment Noted Time PHQ-9 Depression Total Score: 1 07/26/19 25 2:23 PM EDT documented as of this encounter Care Teams Senior Inspector Relationship Specialty Start Date End Date Fernanda Robins MD [address] [place] [address] PCP - General Internal Medicine 08/22/24 documented as of this encounter
--- OUTSIDE RECORDS SUMMARY | 2024-09-10 15:36 | XMS_ITS | Encounter Summary ---
Author Organization [facility] Address [address] [place] [address] Care Team Providers Care Foreign Broadcast Specialist Name Role Phone Triston Bailey MD Unavailable [phone] Remedios Warren Unavailable Unavailable Umang Corado RECRUITING INTERN Unavailable Johana Lizarraga MD Primary Care Provider Chanda Soria RECRUITING INTERN Unavailable Susie Starr DO Primary Care Provider Johana Lizarraga MD Primary Care Provider Susie Starr DO Primary Care Provider Phil Rodriguez MD Primary Care Provider Unavail able Susie Starr DO Primary Care Provider Loreto Albert MD Unavailable [phone] Lizbeth Schilling APRN Primary Care Provider Susie Starr DO Primary Care Provider Reason for Visit * Reason Onset Date Comments refill request 11/30/2022 Encounter Details Date Type Department Care Team Description 11/30/2022 Refill Internal Medicine - [place] 175 [facility], [address] [place] [address] Radha Ceballos PA-C [address] [place] [address] refill request Social History Tobacco Use Types [...] often do you attend [facility] or latter day services? More than 4 [...] encounter Miscellaneous Notes * Telephone Encounter - Marisela Ashton - 12/01/2022 8:43 AM EDT Spoke with Patient and let her know that Dr. Lizarraga sent her medication to the Pharmacy and she will do 2 more fills after this. She should only need one more fill in December as she is going back to [facility]. * Telephone Encounter - Johana Lizarraga MD - 11/30/2022 5:11 PM EDT During the last visit on 11/25/2022 I discussed the patient about the alternative medication with thepatient but patient does not agree with it. She wants to continue the medication. I already told her I will give her 3-month supply in between she needs to find out another prescriber to get this medication. Behavioral health referral already done for her. So this is the first month I give the medicine to her. I can give her 2 more months in between she need to find out the prescriber for it or make a mind to wean it off. * Telephone Encounter - Marisela Ashton - 11/30/2022 2:31 PM EDT Patient is looking for a refill for her Lorazepam or an alternative due to the shortage. She is being transferred back to [facility] as she was waiting until a DrManoj Opened up over there. Last refillwas done by Radha and original medication was given by Dr. Martinez. Patient can not be taken off ofthis medication abruptly and without weaning. EDITH 11/25/2022 NOV 01/11/2023 documented in this encounter Plan of Treatment Not on file documented as of this encounter Visit Diagnoses Diagnosis Anxiety Anxiety state, unspecified documented in this encounter Care Teams Foreign Broadcast Specialist Relationship Specialty Start Date End Date Johana Lizarraga MD [address] [place] [address] [place] [address] PCP - General Internal Medicine 06/28/22 11/30/22 Susie Starr, [address] [place] [address] [place] [address] PCP - General Internal Medicine 12/01/22 12/01/22 Johana Lizarraga MD [address] [place] [address] [place] [address] PCP - General Internal Medicine 12/02/22 12/29/22 [facility], [address] [place] [address] PCP - General Internal Medicine 12/30/22 12/30/22 Phil Rodriguez MD [address] [place] [address] PCP - General Internal Medicine 01/04/23 01/10/23 [facility], [address] [place] [address] PCP - General Internal Medicine 01/11/23 02/01/24 Lizbeth Schilling, PRESIDENT & FOUNDER [address] [place] [address] PCP - General Internal Medicine 02/02/24 02/11/24 [facility], [address] [place] [address] PCP - General Internal Medicine 02/12/24 Triston Bailey MD [address] [place] [address] [place] [address] Senior Instructor Cardiovascular Disease 06/10/20 Remedios Warren PA [address] [place] [address] [place] [address] Cardiology 12/08/21 Umang Corado NP [address] [place] [address] [place] [address] Specialist Cardiology 02/23/22 Chanda Soria NP [address] [place] [address] [place] [address] Cardiology 08/11/22 Loreto Albert MD [address] [place] [address] Internal Medicine 04/13/23 documented as of this encounter
--- OUTSIDE RECORDS SUMMARY | 2024-09-10 15:36 | XMS_ITS | Encounter Summary ---
Author Organization [facility] Address [address] [place] [address] Care Team Providers Care Rn Otolaryngology Name Role Phone Phil Rodriguez MD Primary Care Provider Unavail able Tony Rodriguez MD Primary Care Provider Unavail able Phil Rodriguez MD Primary Care Provider Unavail able Ashley Rosado APRN Primary Care Provider Unav ailable Triston Bailey MD Unavailable Remedios Warren Unavailable Unavailable Umang Corado TECHNICAL ADVISOR Unavailable Johana Lizarraga MD Primary Care Provider Chanda Soria NP Unavailable Susie Starr DO Primary Care Provider [phone] Johana Lizarraga MD Primary Care Provider Susie Starr DO Primary Care Provider [phone] Phil Rodriguez MD Primary Care Provider Unavail able Susie Starr DO Primary Care Provider [phone] Loreto Albert MD Unavailable [phone] Lizbeth Schilling APRN Primary Care Provider Susie Starr DO Primary Care Provider [phone] Encounter Details Date Type Department Care Team Description 01/09/2012 Controlled Substance Plan Medical Records [address] [place] [address] Abstract, Provider Social History Tobacco Use Types [...] [facility] services? More than 4 times per year [...] filedocumented in this encounter Care Teams Rn Otolaryngology Relationship Specialty Start Date End Date Phil Rodriguez MD PCP - General 03/07/05 12/04/14 Tony Rodriguez MD PCP - General Internal Medicine 12/05/14 12/14/14 Phil Rodriguez MD PCP - General Internal Medicine 12/15/14 09/19/19 Ashley Rosado APRN PCP - General Internal Medicine 09/20/19 06/27/22 Johana Lizarraga MD [address] [place] [address] [place] [address] PCP - General Internal Medicine 06/28/22 11/30/22 [facility], [address] [place] [address] PCP - General Internal Medicine 12/01/22 12/01/22 Johana Lizarraga MD [address] [place] [address] [place] [address] PCP - General Internal Medicine 12/02/22 12/29/22 [facility], [address] [place] [address] PCP - General Internal Medicine 12/30/22 12/30/22 Phil Rodriguez MD PCP - General Internal Medicine 01/04/23 01/10/23 [facility], [address] [facility] [place] [address] PCP - General Internal Medicine 01/11/23 02/01/24 Lizbeth Schilling, MELISSA [address] [place] [address] PCP - General Internal Medicine 02/02/24 02/11/24 [facility], [address] [facility] [place] [address] PCP - General Internal Medicine 02/12/24 Triston Bailey MD [address] [place] [address] [place] [address] Assurance Officer Cardiovascular Disease 06/10/20 Remedios Warren PA [address] [place] [address] [place] [address] Cardiology 12/08/21 Umang Corado NP [address] [place] [address] Specialist Cardiology 02/23/22 Chanda Soria NP [address] [place] [address] Cardiology 08/11/22 Loreto Albert MD [address] [place] [address] Internal Medicine 04/13/23 documented as of this encounter
--- OUTSIDE RECORDS SUMMARY | 2024-09-10 15:36 | XMS_ITS | Encounter Summary ---
Author Organization [facility] Address [address] [place] [address] Care Team Providers Care Row Boss Name Role Phone Phil Rodriguez MD Primary Care Provider Unavail able Tony Rodriguez MD Primary Care Provider Unavail able Phil Rodriguez MD Primary Care Provider Unavail able Ashley Rosado APRN Primary Care Provider Unav ailable Triston Bailey MD Unavailable [phone] Remedios Warren Unavailable Unavailable Umang Corado FERTILIZER SUPERVISOR Unavailable Johana Lizarraga MD Primary Care Provider Chanda Soria NP Unavailable Susie Starr DO Primary Care Provider Johana Lizarraga MD Primary Care Provider Susie Starr DO Primary Care Provider [phone] Phil Rodriguez MD Primary Care Provider Unavail able Susie Starr DO Primary Care Provider Loreto Albert MD Unavailable [phone] Lizbeth Schilling APRN Primary Care Provider [phone] Susie Starr DO Primary Care Provider [phone] Encounter Details Date Type Department Care Team Description 03/08/2013 Hospital Medical Records [address] [place] [address] Lenore Rodriguez MD Social History Tobacco Use Types [...] do you attend [facility] or cheondoism services? More than 4 times per year 04/13/2023 Do you belong to any clubs o r organizations such as anabaptist groups, unions, fraternal or athletic groups, or [...] on filedocumented in this encounter Care Teams Row Boss Relationship Specialty Start Date End Date Phil Rodriguez MD PCP - General 03/07/05 12/04/14 Tony Rodriguez MD PCP - General Internal Medicine 12/05/14 12/14/14 Phil Rodriguez MD PCP - General Internal Medicine 12/15/14 09/19/19 Ashlee, Ashley, DEVELOPER AUTOMATIC PCP - General Internal Medicine 09/20/19 06/27/22 Johana Lizarraga MD [address] [place] [address] [place] [address] PCP - General Internal Medicine 06/28/22 11/30/22 [facility] 305 [facility] [place] [address] PCP - General Internal Medicine 12/01/22 12/01/22 Johana Lizarraga MD [address] [place] [address] [place] [address] PCP - General Internal Medicine 12/02/22 12/29/22 [facility] 305 [facility] [place] [address] PCP - General Internal Medicine 12/30/22 12/30/22 Phil Rodriguez MD PCP - General Internal Medicine 01/04/23 01/10/23 [facility], 305 [facility] [place] [address] PCP - General Internal Medicine 01/11/23 02/01/24 Lizbeth Schilling APRN 305 [facility] [place] [address] PCP - General Internal Medicine 02/02/24 02/11/24 [facility], 305 [facility] [place] [address] PCP - General Internal Medicine 02/12/24 Triston Bailey MD [address] [place] [address] [place] [address] Die Attacher Cardiovascular Disease 06/10/20 Remedios Warren PA [address] [place] [address] [place] [address] Cardiology 12/08/21 Umang Corado NP [address] [facility] [place] [address] Specialist Cardiology 02/23/22 Chanda Soria NP [address] [place] [address] [address] Cardiology 08/11/22 Loreto Albert MD [address] [place] [address] Internal Medicine 04/13/23 documented as of this encounter
--- OUTSIDE RECORDS SUMMARY | 2024-09-10 15:36 | XMS_ITS | Encounter Summary ---
Author Organization [facility] Address [address] [place] [address] Care Team Providers Care Hammer Adjuster Name Role Phone Ashley Rosado APRN Primary Care Provider Unav Triston Jaffe MD Unavailable Remedios Warren Unavailable Unavailable Umang Corado HEALTH CARE CONSULTANT Unavailable Johana Lizarraga MD Primary Care Provider Chanda Soria NP Unavailable Susie Starr DO Primary Care Provider Johana Lizarraga MD Primary Care Provider Susie Starr DO Primary Care Provider Phil Rodriguez MD Primary Care Provider Unavail able Susie Starr DO Primary Care Provider Loreto Albert MD Unavailable [phone] Lizbeth Schilling APRN Primary Care Provider Susie Starr DO Primary Care Provider [phone] Encounter Details Date Type Department Care Team Description 06/30/2020 [facility] [address] [phone] Ashley Rosado APRN Social History Tobacco Use Types Packs/Day Years [...] week 04/13/2023 How often do you attend [facility] or zoroastrian services? More than 4 times [...] on filedocumented in this encounter Care Teams Hammer Adjuster Relationship Specialty Start Date End Date Ashley Rosado APRN PCP - General Internal Medicine 09/20/19 06/27/22 Johana Lizarraga MD [address] [place] [address] [place] [address] PCP - General Internal Medicine 06/28/22 11/30/22 [facility], [address] [place] [address] PCP - General Internal Medicine 12/01/22 12/01/22 Johana Lizarraga MD [address] [place] [address] [place] [address] PCP - General Internal Medicine 12/02/22 12/29/22 [facility], [address] [place] [address] PCP - General Internal Medicine 12/30/22 12/30/22 Phil Rodriguez MD [address] [place] [address] PCP - General Internal Medicine 01/04/23 01/10/23 [facility], [address] [place] [address] PCP - General Internal Medicine 01/11/23 02/01/24 Lizbeth Schilling, CUSTOMER LIAISON [address] [place] [address] PCP - General Internal Medicine 02/02/24 02/11/24 [facility], [address] [place] [address] PCP - General Internal Medicine 02/12/24 Triston Bailey MD [address] [place] [address] [place] [address] Water Gas Operator Cardiovascular Disease 06/10/20 Remedios Warren PA [address] [facility] [place] [address] Cardiology 12/08/21 Umang Corado NP [address] [facility] [place] [address] Specialist Cardiology 02/23/22 Chanda Soria NP [address] [address] Cardiology 08/11/22 Loreto Albert MD [address] [place] [address] Internal Medicine 04/13/23 documented as of this encounter
--- OUTSIDE RECORDS SUMMARY | 2024-09-10 15:37 | XMS_ITS | Encounter Summary ---
Author Organization [facility] Address [address] [place] [address] Care Team Providers Care International Operations Manager Name Role Phone Ashley Rosado APRN Primary Care Provider Triston Franks MD Unavailable [phone] Remedios Warren Unavailable Unavailable Umang Corado LOCKSTITCH CUP SETTER Unavailable Johana Lizarraga MD Primary Care Provider Chanda Soria NP Unavailable Susie Starr DO Primary Care Provider Johana Lizarraga MD Primary Care Provider Susie Starr DO Primary Care Provider Phil Rodriguez MD Primary Care Provider Unavail able Susie Starr DO Primary Care Provider [phone] Loreto Albert MD Unavailable [phone] Lizbeth Schilling APRN Primary Care Provider Susie Starr DO Primary Care Provider [phone] Encounter Details Date Type Department Care Team Description 08/14/2020 Orders Only Medical Records [address] [place] [address] Default, Provider Social History Tobacco Use Types [...] [facility] or mu-ism services? More than 4 times [...] Procedure Name Priority Date/Time Associated Diagnosis Comments HISTORY OTHER Routine 08/11/2020 documented in this encounter Results * HISTORY OTHER (08/11/2020) Provider Default PROCEDURES documented in this encounter Visit Diagnoses Not on filedocumented in this encounter Care Teams International Operations Manager Relationship Specialty Start Date End Date Ashley Rosado APRN PCP - General Internal Medicine 09/20/19 06/27/22 Johana Lizarraga MD [address] [place] [address] [place] [address] PCP - General Internal Medicine 06/28/22 11/30/22 [facility], [address] [place] [address] PCP - General Internal Medicine 12/01/22 12/01/22 Johana Lizarraga MD [address] [place] [address] [place] [address] PCP - General Internal Medicine 12/02/22 12/29/22 [facility], [address] [place] [address] PCP - General Internal Medicine 12/30/22 12/30/22 Phil Rodriguez MD [address] [place] [address] PCP - General Internal Medicine 01/04/23 01/10/23 [facility], [address] [place] [address] PCP - General Internal Medicine 01/11/23 02/01/24 Lizbeth Schilling, MELISSA [address] [place] [address] PCP - General Internal Medicine 02/02/24 02/11/24 [facility], [address] [place] [address] PCP - General Internal Medicine 02/12/24 Triston Bailey MD [address] [place] [address] [place] [address] Small Engine Specialist Cardiovascular Disease 06/10/20 Remedios Warren PA 2 [facility] [place] [address] Cardiology 12/08/21 Umang Corado NP 2 [facility] [place] [address] Specialist Cardiology 02/23/22 Chanda Soria NP [address] [place] [address] Cardiology 08/11/22 Loreto Albert MD [address] [place] [address] Internal Medicine 04/13/23 documented as of this encounter
--- OUTSIDE RECORDS SUMMARY | 2024-09-10 15:37 | XMS_ITS | Encounter Summary ---
Author Organization [facility] Address [address] [place] [address] Care Team Providers Care Staff Forester Name Role Phone Ashley Rosado APRN Primary Care Provider Unav Triston Jaffe MD Unavailable Remedios Warren Unavailable Unavailable Umang Corado BACON SKIN LIFTER Unavailable Johana Lizarraga MD Primary Care Provider Chanda Soria NP Unavailable Susie Starr DO Primary Care Provider Johana Lizarraga MD Primary Care Provider Susie Starr DO Primary Care Provider Phil Rodriguez MD Primary Care Provider Unavail able Susie Starr DO Primary Care Provider Loreto Albert MD Unavailable [phone] Lizbeth Schilling APRN Primary Care Provider Susie Starr DO Primary Care Provider [phone] Encounter Details Date Type Department Care Team Description 04/13/2021 Telephone Pulmonology - [place] 175 [facility] [address] [place] [address] Santiago Chris MD [address] [place] [address] Social History Tobacco Use Types [...] do you attend [facility] or zoroastrian services? More than 4 times per year 04/13/2023 Do you belong to any clubs o r organizations such as baptist groups, unions, fraternal or athletic groups, or [...] on filedocumented in this encounter Care Teams Staff Forester Relationship Specialty Start Date End Date Ashley Rosado APRN PCP - General Internal Medicine 09/20/19 06/27/22 Johana Lizarraga MD [address] [place] [address] [place] [address] PCP - General Internal Medicine 06/28/22 11/30/22 [facility], [address] [place] [address] PCP - General Internal Medicine 12/01/22 12/01/22 Johana Lizarraga MD [address] [place] [address] [place] [address] PCP - General Internal Medicine 12/02/22 12/29/22 [facility], [address] [place] [address] PCP - General Internal Medicine 12/30/22 12/30/22 Phil Rodriguez MD [address] [place] [address] PCP - General Internal Medicine 01/04/23 01/10/23 [facility], [address] [place] [address] PCP - General Internal Medicine 01/11/23 02/01/24 Lizbeth Schilling, DEAN OF GIRLS [address] [place] [address] PCP - General Internal Medicine 02/02/24 02/11/24 [facility], [address] [place] [address] PCP - General Internal Medicine 02/12/24 Triston Bailey MD [address] [place] [address] [place] [address] Interactive Designer Cardiovascular Disease 06/10/20 Remedios Warren PA [address] [place] [address] [place] [address] Cardiology 12/08/21 Umang Corado NP [address] [place] [address] [place] [address] Specialist Cardiology 02/23/22 Chanda Soria NP [address] [place] [address] Bre[address] Hui [address] [place] [address] Cardiology 08/11/22 Loreto Albert MD [address] [place] [address] Internal Medicine 04/13/23 documented as of this encounter
--- OUTSIDE RECORDS SUMMARY | 2024-09-10 15:37 | XMS_ITS | Encounter Summary ---
Author Organization [facility] Address [address] [place] [address] Care Team Providers Care Mixer Helper Name Role Phone Triston Bailey MD Unavailable Remedios Warren Unavailable Unavailable Umang Corado PATIENT ACCOUNT REPRESENTATIVE Unavailable Chanda Soria PATIENT ACCOUNT REPRESENTATIVE Unavailable [phone] Johana Lizarraga MD Primary Care Provider Susie Starr DO Primary Care Provider Phil Rodriguez MD Primary Care Provider Unavail able Susie Starr DO Primary Care Provider [phone] Loreto Albert MD Unavailable [phone] Lizbeth Schilling APRN Primary Care Provider [phone] Susie Starr DO Primary Care Provider [phone] Reason for Visit * Reason Onset Date Comments Prior Authorization 12/28/2022 Prolia Encounter Details Date Type Department Care Team Description 12/28/2022 Telephone [facility] - [address] [id number] Mervat Cruz MD [address] [place] [address] Prior Authorization (Prolia) Social History Tobacco [...] 04/13/2023 How often do you attend [facility] or latter day services? More than 4 times per year 04/13/2023 Do you belong to any clubs o r organizations such as restorationism groups, unions, fraternal or athletic groups, or [...] 1:21 PM EDT Fax received back from [facility] States prior auth for Prolia was approved expires 01/28/24 Copy of insurance approval was attached to paperwork. * Telephone Encounter - Patricia Durbin - 01/27/2023 10:56 AM EDT Pt has no separate pharmacy benefit plans with [facility]. [facility] Prior Auth form was filled and faxed over to insurance with supporting documents. Will await fax to come in with decision being made for Prolia. * Telephone Encounter - Aga Lara - 12/28/2022 4:48 PM EDT Request received for verification of prior authorization for Prolia - request submitted through [employer] - waiting for response as of 12/28/22 documented in this encounter Plan of Treatment Not on file documented as of this encounter Visit Diagnoses Not on filedocumented in this encounter Care Teams Mixer Helper Relationship Specialty Start Date End Date Johana Lizarraga MD [address] [place] [address] PCP - General Internal Medicine 12/02/22 12/29/22 [facility], [address] [place] [address] PCP - General Internal Medicine 12/30/22 12/30/22 Phil Rodriguez MD [address] [place] [address] PCP - General Internal Medicine 01/04/23 01/10/23 [facility], [address] [place] [address] PCP - General Internal Medicine 01/11/23 02/01/24 Lizbeth Schilling APRN [address] [place] [address] PCP - General Internal Medicine 02/02/24 02/11/24 [facility], [address] [place] [address] PCP - General Internal Medicine 02/12/24 Triston Bailey MD [address] [place] [address] [place] [address] Haz Tech Cardiovascular Disease 06/10/20 Remedios Warren PA [address] [place] [address] [place] [address] Cardiology 12/08/21 Umang Corado NP [address] [place] [address] [place] [address] Specialist Cardiology 02/23/22 Chanda Soria NP [address] [place] [address] Breann Hui [address] [place] [address] Cardiology 08/11/22 Loreto Albert MD [address] [place] [address] Internal Medicine 04/13/23 documented as of this encounter
--- OUTSIDE RECORDS SUMMARY | 2024-09-10 15:37 | XMS_ITS | Encounter Summary ---
Author Organization [facility] Address [address] [place] [address] Care Team Providers Care Websphere Architect Name Role Phone Phil Rodriguez MD Primary Care Provider Unavail able Ashley Rosado APRN Primary Care Provider Unav ailable Triston Bailey MD Unavailable Remedios Warren PA Unavailable Unavailable Umang Corado NP Unavailable [phone] Johana Lizarraga MD Primary Care Provider Chanda Soria SLEEVE SEWER Unavailable Susie Starr DO Primary Care Provider Johana Lizarraga MD Primary Care Provider Susie Starr DO Primary Care Provider Phil Rodriguez MD Primary Care Provider Unavail able Susie Starr DO Primary Care Provider [phone] Loreto Albert MD Unavailable [phone] Lizbeth Schilling APRN Primary Care Provider [phone] Susie Starr DO Primary Care Provider [phone] Reason for Visit * Reason Onset Date Comments refill request 05/11/2018 Encounter Details Date Type Department Care Team Description 05/11/2018 Refill Rheumatology - [address] [address] Atul Adams MD refill request Social History Tobacco Use [...] do you attend [facility] or sikh services? More than 4 [...] encounter Miscellaneous Notes * Telephone Encounter - Annita Johnson - 05/11/2018 1:11 PM EST Patient states that she went to the pharmacy as was told there was none available. Patient would like script to be: E-PRESCRIBED/FAXED TO PHARMACY WHEN WAS THE PATIENT'S LAST APPOINTMENT IN ADULT MEDICINE? 02/19/18 WHEN WAS THE LAST TIME THE PATIENT SAW THEIR PCP? 02/07/18 Does patient have an upcoming appointment? No, she will call back. (THE MEDICATION REQUESTED IS ON THE MED [...] insurance carrier is: [facility] [place] / Plan: [place] $0 [place] [id number] / Product Type: RatherGatherO [id number] documented in this encounter Plan of Treatment Not on file documented as of this encounter Visit Diagnoses Diagnosis Fibromyalgia Mylagia and myositis, unspecified documented in this encounter Care Teams Websphere Architect Relationship Specialty Start Date End Date Phil Rodriguez MD PCP - General Internal Medicine 12/15/14 09/19/19 Ashley Rosado APRN PCP - General Internal Medicine 09/20/19 06/27/22 Johana Lizarraga MD [address] [place] [address] [place] [address] PCP - General Internal Medicine 06/28/22 11/30/22 Susie Starr, [address] [place] [address] PCP - General Internal Medicine 12/01/22 12/01/22 Johana Lizarraga MD [address] [place] [address] [place] [address] PCP - General Internal Medicine 12/02/22 12/29/22 Susie Starr, [address] [place] [address] PCP - General Internal Medicine 12/30/22 12/30/22 Phil Rodriguez MD PCP - General Internal Medicine 01/04/23 01/10/23 Susie Starr, [address] [place] [address] PCP - General Internal Medicine 01/11/23 02/01/24 Lizbeth Schilling, HEALTHCARE MANAGEMENT CONSULTANT [address] [place] [address] PCP - General Internal Medicine 02/02/24 02/11/24 [facility] [address] [place] [address] PCP - General Internal Medicine 02/12/24 Triston Bialey MD [address] [place] [address] [place] [address] Poem Writer Cardiovascular Disease 06/10/20 Remedios Warren PA [address] [place] [address] [place] [address] Cardiology 12/08/21 Umang Corado NP [address] [place] [address] [place] [address] Specialist Cardiology 02/23/22 Chanda Soria NP [address] [place] [address] Breann [facility] [place] [address] Cardiology 08/11/22 Loreto Albert MD [address] [place] [address] Internal Medicine 04/13/23 documented as of this encounter
--- OUTSIDE RECORDS SUMMARY | 2024-09-10 15:37 | XMS_ITS | Encounter Summary ---
Author Organization [facility] Address [address] [place] [address] Care Team Providers Care Eviction Specialist Name Role Phone Triston Bailey MD Unavailable Remedios Warren Unavailable Unavailable Umang Corado RESIDENTIAL COUNSELOR Unavailable [phone] Chanda Soria NP Unavailable [phone] Phil Rodriguez MD Primary Care Provider Unavail able Susie Starr DO Primary Care Provider Loreto Albert MD Unavailable [phone] Lizbeth Schilling APRN Primary Care Provider [phone] Susie Starr DO Primary Care Provider [phone] Encounter Details Date Type Department Care Team Description 01/10/2023 Orders Only Medical Records [address] [place] [address] Johana Lizarraga MD [address] [place] [phone] Social History Tobacco Use Types Packs/Day [...] How often do you attend chur or confucianism services? More than 4 times per year 04/13/2023 Do you belong to any clubs o r organizations such as baptist groups, unions, fraFitnessManager or athletic groups, or school groups? No [...] on filedocumented in this encounter Care Teams Eviction Specialist Relationship Specialty Start Date End Date Phil Rodriguez MD [address] [place] [address] PCP - General Internal Medicine 01/04/23 01/10/23 Susie Starr, [address] [place] [address] PCP - General Internal Medicine 01/11/23 02/01/24 Lizbeth Schilling, BIOCHEMISTRY TECHNICIAN [address] [place] [address] PCP - General Internal Medicine 02/02/24 02/11/24 Ro Susie, DO [address] [place] [address] PCP - General Internal Medicine 02/12/24 Triston Bailey MD [address] [place] [address] [place] [address] Embedded Engineer Cardiovascular Disease 06/10/20 Remedios Warren PA [address] [place] [address] [place] [address] Cardiology 12/08/21 Umang Corado NP [address] [place] [address] [place] [address] Specialist Cardiology 02/23/22 Chanad Soria NP [address] [place] [address] [address] Cardiology 08/11/22 Loreto Albert MD [address] [place] [address] Internal Medicine 04/13/23 documented as of this encounter
--- OUTSIDE RECORDS SUMMARY | 2024-09-10 15:37 | XMS_ITS | Encounter Summary ---
Author Organization [facility] Address [address] [place] [address] Care Team Providers Care Die Repairer Forging Name Role Phone Ashley Rosado APRN Primary Care Provider Unav Triston Jaffe MD Unavailable Remedios Warren Unavailable Unavailable Umang Corado TMD TEACHER Unavailable Johana Lizarraga MD Primary Care Provider Chanda Soria NP Unavailable Susie Starr DO Primary Care Provider Johana Lizarraga MD Primary Care Provider Susie Starr DO Primary Care Provider Phil Rodriguez MD Primary Care Provider Unavail able Susie Starr DO Primary Care Provider Loreto Albert MD Unavailable [phone] Lizbeth Schilling APRN Primary Care Provider Susie Starr DO Primary Care Provider [phone] Encounter Details Date Type Department Care Team Description 09/14/2020 Orders Only Radiology - [place] [address] [place] [address] [id number] French Mckeon MD [address] [place] [id number] Thyroid nodule (Primary Dx) Social History Tobacco [...] [facility] or quaker services? More than 4 times [...] have Coronavirus / COVID-19? No / Unsure 09/14/2020 8:34 AM EDT documented as of this encounter Plan of Treatment Not on file documented as of this encounter Procedures Procedure Name Priority Date/Time Associated Diagnosis Comments THYROID,NEEDLE ASPIRATION CYTOLOGY EXAM Routine 09/14/2020 9:24 AM EDT Thyroid nodule documented in this encounter Results * THYROID,NEEDLE ASPIRATION CYTOLOGY EXAM (09/14/2020 9:24 AM EDT) 09/14/2020 9:24 AM EDT 09/14/2020 Narrative [facility] - 09/24/2020 11:30 AM EDT [id number] THYROID, RIGHT MID LOBE, FINE NEEDLE ASPIRATION (DIRECT SMEARS AND THIN PREP): ?? - BETHESDA SYSTEM CLASSIFICATION: BENIGN. ?? -DESCRIPTION: ??BENIGN FOLLICULAR CELLS. SEE SUPPLEMENTAL REPORT FOR CELL BLOCK ANTON ARMENTA M.D. , PATHOLOGIST (CASE ELECTRONICALLY SIGNED 09 23 2020) SUPPLEMENTAL REPORT: CELL BLOCK: FEW BENIGN FOLLICULAR CELLS ANTON ARMENTA M.D. , PATHOLOGIST (SUPPLEMENTAL REPORT SIGNED 09 24 2020) CLINICAL INFORMATION: E04.1 E04.1 NONTOXIC SINGLE THYROID NODULE SOURCE: THYROID FNA, RIGHT MID POLE GROSS DESCRIPTION: RECEIVED IN CYTOLYT, RECEIVED 2 DIRECT SMEARS,1 THINPREP, CELLIENT CELL BLOCK 09/14/20 [facility] MCKEON/[phone] MICHELLE NASCIMENTO/[phone] French Mckeon MD PATHOLOGY [facility] documented in this encounter Visit Diagnoses Diagnosis Thyroid nodule- Primary Nontoxic uninodular goiter documented in this encounter Care Teams Die Repairer Forging Relationship Specialty Start Date End Date Ashley Rosado APRN PCP - General Internal Medicine 09/20/19 06/27/22 Johana Lizarraga MD [address] [place] [address] [place] [address] PCP - General Internal Medicine 06/28/22 11/30/22 Susie Starr, [address] [place] [address] PCP - General Internal Medicine 12/01/22 12/01/22 Johana Lizarraga MD [address] [place] [address] [place] [address] PCP - General Internal Medicine 12/02/22 12/29/22 Susie Starr, [address] [place] [address] PCP - General Internal Medicine 12/30/22 12/30/22 Phil Rodriguez MD [address] [place] [address] PCP - General Internal Medicine 01/04/23 01/10/23 [facility] [address] [place] [address] PCP - General Internal Medicine 01/11/23 02/01/24 Lizbeth Schilling APRN [address] [place] [address] PCP - General Internal Medicine 02/02/24 02/11/[address] [address] PCP - General Internal Medicine 02/12/24 Triston Bailey MD [address] [place] [address] [place] [address] Dealer Support Technician Cardiovascular Disease 06/10/20 Remedios Warren PA [address] [place] [address] [place] [address] Cardiology 12/08/21 Umang Corado NP [address] [place] [address] [place] [address] Specialist Cardiology 02/23/22 Chanda Soria NP [address] [place] [address] [place] [address] Cardiology 08/11/22 Loreto Albert MD [address] [place] [address] Internal Medicine 04/13/23 documented as of this encounter
--- OUTSIDE RECORDS SUMMARY | 2024-09-10 15:37 | XMS_ITS | Encounter Summary ---
Author Organization [facility] Address [address] [place] [address] Care Team Providers Care Systems Software Engineer Name Role Phone Ashley Rosado APRN Primary Care Provider Triston Franks MD Unavailable Remedios Warren Unavailable Unavailable Umang Corado ORANGE GROWER Unavailable [phone] Johana Lizarraga MD Primary Care Provider Chanda Soria NP Unavailable Susie Starr DO Primary Care Provider Johana Lizarraga MD Primary Care Provider Susie Starr DO Primary Care Provider Phil Rodriguez MD Primary Care Provider Unavail able Susie Starr DO Primary Care Provider [phone] Loreto Albert MD Unavailable [phone] Lizbeth Schilling APRN Primary Care Provider Susie Starr DO Primary Care Provider [phone] Encounter Details Date Type Department Care Team Description 09/01/2020 SCAN Medical Records [address] [place] [address] Abstract, Provider Social History Tobacco Use Types [...] often do you attend [facility] or rastafari services? More than 4 times [...] Date/Time Associated Diagnosis Comments OUTSIDE LAB Routine 09/01/2020 documented in this encounter Results * OUTSIDE LAB (09/01/2020) Provider Default LAB documented in this encounter Visit Diagnoses Not on filedocumented in this encounter Care Teams Systems Software Engineer Relationship Specialty Start Date End Date Ashley Rosado APRN PCP - General Internal Medicine 09/20/19 06/27/22 Johana Lizarraga MD [address] [place] [address] [place] [address] PCP - General Internal Medicine 06/28/22 11/30/22 ZacharylukasSusie ramirez, DO [address] [place] [address] PCP - General Internal Medicine 12/01/22 12/01/22 Johana Lizarraga MD [address] [place] [address] [place] [address] PCP - General Internal Medicine 12/02/22 12/29/22 Lisa Starrmana, [address] [place] [address] PCP - General Internal Medicine 12/30/22 12/30/22 hPil Rodriguez MD [address] [place] [address] PCP - General Internal Medicine 01/04/23 01/10/23 [facility] [address] [place] [address] PCP - General Internal Medicine 01/11/23 02/01/24 Lizbeth Schilling APRN [address] [place] [address] PCP - General Internal Medicine 02/02/24 02/11/24 Zacharyjames Susie, [address] [place] [address] PCP - General Internal Medicine 02/12/24 Triston Bailey MD [address] [place] [address] [place] [address] Professor Of Legal Studies Cardiovascular Disease 06/10/20 Remedios Warren PA [address] [place] [address] Dr Hui [address] [place] [address] Cardiology 12/08/21 Umang Corado NP [address] [place] [address] Dr Hui [address] [place] [address] Specialist Cardiology 02/23/22 Chanda Soria NP [address] [place] [address] Breann Hui [address] [place] [address] Cardiology 08/11/22 Loreto Albert MD [address] [place] [address] Internal Medicine 04/13/23 documented as of this encounter
== END 2024-09-10 15:10 | disposition home or self-care (01) ==
LOC: HO.HKAS 14:11
PROVIDERS: PCP Internal Medicine; Visit Provider Internal Medicine Nephrology
DX: I12.9 Hypertensive chronic kidney disease with stage 1 through stage 4 chronic kidney disease, or unspecified chronic kidney disease (principal); E11.22 Type 2 diabetes mellitus with diabetic chronic kidney disease; N18.31 Chronic kidney disease, stage 3a
CPT/HCPCS: 99214

== ENCOUNTER → 2024-09-10 14:10 | Outpatient (BNVA) | payer OTHER, SELFPAY | PROVIDERS: PCP Internal Medicine; Visit Provider Internal Medicine Nephrology | DX: I15.0 Renovascular hypertension (principal); E11.22 Type 2 diabetes mellitus with diabetic chronic kidney disease; N18.31 Chronic kidney disease, stage 3a; I25.10 Atherosclerotic heart disease of native coronary artery without angina pectoris | CPT/HCPCS: 99212 ==

== ENCOUNTER 2024-12-12 13:29 | Outpatient (AMB) | payer OTHER, SELFPAY ==
--- NOTE | 2024-12-12 13:38 | HO.NEPHOV_ITS ---
Vital Signs 12/12/24 13:44 Height 5 ft 3 in Weight 155 lb BMI 27.5 BP 136/64 Blood Pressure Location Lt brachial Position Sitting Pulse 72 Pulse Source Pulse Oximeter Pulse Oximetry (%) 96 Oxygen Delivery Method Room Air Intake Visit Reasons: 3 mo follow up-Conf Marine Engineering Consultant Required: No Accompanied by: Self / Same As Patient Allergies naproxen Allergy (Unknown, Verified 12/12/24 13:44) Unknown Penicillins Allergy (Unknown, Verified 12/12/24 13:44) Unknown HPI Comments Details: Margarita was seen in the office in follow-up for her chronic kidney disease and hypertension. She recently had CLARENCE and hyperkalemia. Her ACEI has been put on hold and has been started on K lowering medication. She has history of for diabetes mellitus and hypertension. She has history of carotid disease. Her blood sugar control is fair. She has not had any epistaxis, photosensitivity, skin rashes, pedal edema, excessive nonsteroidal anti-inflammatory medication intake, hematuria, renal stones, new bone or back pain. She avoids excessive nonsteroidal anti-inflammatory medications. She tries to hydrate herself well. She has no chest pain, shortness of breath, paroxysmal nocturnal dyspnea, orthopnea, history of hypercalcemia or dizziness. She has not had any nephrolithiasis since last office visit. She is tolerating Jardiance well. She claims to be compliant with her medications. COUNT INCLUDES [facility] Medical History HLD (hyperlipidemia) HTN (hypertension) Diverticulitis Anxiety and depression Cervical spinal stenosis Tremor CKD (chronic kidney disease) Thyroid nodule MARGARITA positive Carotid stenosis History of COVID-19 Nephrolithiasis Polyneuropathy CAD (coronary artery disease) Diabetes Surgical History Status post cardiac catheterization History of back surgery Family History Father HTN (hypertension) Diabetes mellitus Heart disease Mother HTN (hypertension) Diabetes mellitus Kidney disease Social History Alcohol intake: current Alcohol intake frequency: former alcohol drinker Patient Tobacco Use Status: Former Tobacco user Review of Systems Const All systems reviewed & are unremarkable except as noted in HPI and below Physical Exam Vital Signs: Last Vital Signs Pulse 72 12/12/24 13:44 BP 136/64 12/12/24 13:44 Pulse Ox 96 12/12/24 13:44 Oxygen Delivery Method Room Air 12/12/24 13:44 BMI result Body Mass Index 27.5 Const General: comfortable and no acute distress Orientation/consciousness: patient oriented x3 HEENT Head: Yes normocephalic Mouth: Normal oral and palatal mucosa present Eyes EOM: EOMs intact bilaterally Neck Neck: Yes supple Resp Auscultation: clear to auscultation bilaterally Cardio Jugular venous distension: no JVD Rate: regular rate GI Palpation (GI): Soft to palpation Auscultation: normal bowel sounds General: Yes no CVA tenderness Back/Spine/Pelvis Back: no CVA tenderness Skin General skin exam: no rashes or lesions noted Neuro General: patient oriented x3 and moves all extremities Extrem General: Yes no pedal edema Results Reviewed Nephrology Results: Sodium, (135-145) 141 mmol/L 04/30/24 Potassium, (3.3-5.1) 5.4 mmol/L H 04/30/24 Chloride, (96-108) 112 mmol/L H 04/30/24 Carbon Dioxide, (22-29) 22 mmol/L 04/30/24 BUN, (9-16) 33 mg/dL H 04/30/24 Creatinine, (0.5-1.4) 1.33 mg/dL 04/30/24 Assessment & Plan Assessment & Plan (1) HTN (hypertension): Code(s): I10 - Essential (primary) hypertension Category: Medical Qualifiers: Hypertension type: renovascular hypertension Qualified Code(s): I15.0 - Renovascular hypertension (2) CKD (chronic kidney disease) stage 3, GFR 30-59 ml/min: Code(s): N18.30 - Chronic kidney disease, stage 3 unspecified Category: Medical Qualifiers: Chronic kidney disease stage 3 subtype: stage 3a (GFR 45-59) Qualified Code(s): N18.31 - Chronic kidney disease, stage 3a (3) Hyperkalemia: Code(s): E87.5 - Hyperkalemia Category: Medical (4) CLARENCE (acute kidney injury): Code(s): N17.9 - Acute kidney failure, unspecified Category: Medical Plan Margarita has longstanding hypertension and diabetes mellitus. Her blood sugar control is fair. She needs to maintain steady weight as well as good exercise. She is on Jardiance to 25 mg daily. Her lisinopril has been put on hold due to CLARENCE and hyperkalemia. She is on K lowering medication. She has carotid disease which has been stable. I held her HCTZ in one of the previous visits. She should maintain good hydration and avoid nonsteroidal anti-inflammatory medications if at all possible. F/U labs ordered. I have answered all questions. Orders: Orders Creatinine 3 Weeks E87.5 - Hyperkalemia, I15.0 - Renovascular hypertension, N17.9 - Acute kidney failure, unspecified, N18.31 - Chronic kidney disease, stage 3a Blood Urea Nitrogen 3 Weeks E87.5 - Hyperkalemia, I15.0 - Renovascular hypertension, N17.9 - Acute kidney failure, unspecified, N18.31 - Chronic kidney disease, stage 3a Electrolytes 3 Weeks E87.5 - Hyperkalemia, I15.0 - Renovascular hypertension, N17.9 - Acute kidney failure, unspecified, N18.31 - Chronic kidney disease, stage 3a Coding Level of Care Code Est Pt Level 4 (06013) Diagnoses Renovascular hypertension I15.0 Hypertension type: renovascular hypertension Stage 3a chronic kidney disease N18.31 Chronic kidney disease stage 3 subtype: stage 3a (GFR 45-59) Hyperkalemia E87.5 CLARENCE (acute kidney injury) N17.9
--- OUTSIDE RECORDS SUMMARY | 2024-12-12 13:40 | XMS_ITS | Clinical Summary ---
Author Organization [facility], Address [address] [place] [address] [place] [address] Phone Care Team Providers Care Klystrom Tube Tester Name Role Phone Kira King MD Primary Care Provider [phone] Allergies Active Allergy Reactions Criticality Noted Date [...] every 4 (four) hours if needed Active Buffalo-3 1000 MG capsule Take by mouth Active [...] 3 Active Cholecalciferol (Vitamin D3) 1.25 MG (02703 UT) capsule Take 1 capsule by mouth [...] 07/08/2021, Additional history exists Influenza Vaccine (#1) 2024 2, 01/04/2021, 02/27/2020, Additional history exists Hepatitis [...] PM EDT) Hemoglobin A1C 6.9(H) (4.0-5.6) % [facility] Comment: MONITORING: In known diabetic patients, hemoglobin A1c targets should be discussed with health care provider. DIAGNOSTIC USE: The [place] Diabetes Association (ADA) and the World Health [...] Supplement 1 Testing performed or reported by [facility], a Service of [facility], [address] [place] [id number] Gail Forbes MD, Horse Stud Manager Blood specimen (specimen) Venous blood / Unknown 07/21/2020 2:21 PM EDT 07/21/2020 2:24 PM EDT us [facility] BLOOD ORDERABLES Final Res ult [facility] from Last 3 Months or Most Recently Relevant to Health Maintenance [place] [address] Dual SNP ([id number]) Care Teams Klystrom Tube Tester Relationship Specialty Start Date End Date Kira King MD [address] [place] [address] PCP - General Internal Medicine 06/25/20
--- OUTSIDE RECORDS SUMMARY | 2024-12-12 13:40 | XMS_ITS | Encounter Summary ---
Author Organization [facility] Address [address] [place] [address] Care Team Providers Care Stress Analyst Name Role Phone Phil Rodriguez MD Primary Care Provider Unavail able Tony Rodriguez MD Primary Care Provider Unavail able Phil Rodriguez MD Primary Care Provider Unavail able Ashley Rosado APRN Primary Care Provider Unav ailable Triston Bailey MD Unavailable Remedios Warren Unavailable Unavailable Umang Corado SEAL DELIVERY VEHICLE OFFICER Unavailable Johana Lizarraga MD Primary Care Provider Chanda Soria SEAL DELIVERY VEHICLE OFFICER Unavailable Susie Starr DO Primary Care Provider [phone] Johana Lizarraga MD Primary Care Provider Susie Starr DO Primary Care Provider [phone] Phil Rodriguez MD Primary Care Provider Unavail able Susie Starr DO Primary Care Provider [phone] Loreto Albert MD Unavailable [phone] Lizbeth Schilling APRN Primary Care Provider Susie Starr DO Primary Care Provider [phone] Reason for Visit * Reason Onset Date Comments Executive Assistant To General Counsel Feedback 06/12/2014 physical therapy Encounter Details Date Type Department Care Team Description 06/12/2014 Telephone Adult Medicine [address] [address] Elsa Turner PA-C Executive Assistant To General Counsel Feedback (physical therapy) Social History Tobacco Use [...] [facility]? More than 4 times [...] on filedocumented in this encounter Care Teams Stress Analyst Relationship Specialty Start Date End Date Phil Rodriguez MD PCP - General 03/07/05 12/04/14 Tony Rodriguez MD PCP - General Internal Medicine 12/05/14 12/14/14 Phil Rodriguez MD PCP - General Internal Medicine 12/15/14 09/19/19 Ashley Rosado APRN PCP - General Internal Medicine 09/20/19 06/27/22 Johana Lizarraga MD [address] [place] [address] [place] [address] PCP - General Internal Medicine 06/28/22 11/30/22 [facility], [address] [place] [address] PCP - General Internal Medicine 12/01/22 12/01/22 Johana Lizarraga MD [address] [place] [address] [place] [address] PCP - General Internal Medicine 12/02/22 12/29/22 [facility], [address] [place] [address] PCP - General Internal Medicine 12/30/22 12/30/22 Phil Rodriguez MD PCP - General Internal Medicine 01/04/23 01/10/23 [facility], [address] [place] [address] PCP - General Internal Medicine 01/11/23 02/01/24 Lizbeth Schilling APRN [address] [place] [address] PCP - General Internal Medicine 02/02/24 02/11/24 ZacharyLisa ramirezmana, DO [address] [place] [address] PCP - General Internal Medicine 02/12/24 Triston Bailey MD [address] [place] [address] [place] [address] [employer] Manager Cardiovascular Disease 06/10/20 Remedios Warren PA [address] [place] [address] [place] [address] Cardiology 12/08/21 Umang Corado NP [address] [place] [address] [place] [id number] Specialist Cardiology 02/23/22 Chanda Soria NP [address] [place] [address] [address] Cardiology 08/11/22 Loreto Albert MD [address] [place] [id number] Internal Medicine 04/13/23 documented as of this encounter
--- OUTSIDE RECORDS SUMMARY | 2024-12-12 13:40 | XMS_ITS | Clinical Summary ---
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 1 each 024 2024 Active ezetimibe (ZETIA) 10 mg tablet TAKE 1 TABLET BY MOUTH DAILY 90 tablet 3 024 Active hydroCHLOROthiazi de 12.5 mg tablet TAKE 1 TABLET BY MOUTH DAILY 90 tablet 1 024 Active blood sugar diagnostic (FreeStyle Lite Strips) test strip USE DIRECTED TO TEST BLOOD SUGAR TWICE DAILY BEFORE A MEAL 200 strip 025 Active calcium carbonate 1,500 mg (600 mg elemental calcium) tablet TAKE 1 TABLET BY MOUTH TWICE DAILY WITH MEALS 180 tablet 1 025 Active aspirin 81 mg chewable tablet CHEW AND SWALLOW 1 TABLET BY MOUTH EVERY DAY 90 tablet 3 025 Active blood-glucose meter kit Use daily or as directed for monitoring of diabetes 1 each 025 2025 Active freestyle 28 gauge lancets Check blood sugar 1 times a day or as directed 100 each 025 2025 Active pen needle, diabetic 32 gauge x 1/4 needle Use daily with insulin 100 each Active budesonide-formot Albert (SYMBICORT) 160-4.5 mcg/actuation inhaler Inhale 2 puffs by mouth 2 (two) times a day. Rinse mouth with water after use to reduce aftertaste and incidence of candidiasis. Do not swallow. 3 each 3 025 2025 Active ipratropium-albut Albert (DUONEB) 0.5-2.5 mg/3 mL nebulizer solutionIndicatio ns:Moderate persistent asthma, unspecified whether complicated Take 3 mL by nebulization every 6 (six) hours if needed for wheezing. 360 mL 2025 Active evolocumab (Repatha SureClick) 140 mg/mL pen injector injectionIndicati ons:Mixed hyperlipidemia Inject 1 mL (140 mg total) under the skin every 14 (fourteen) days. 2 mL 2025 Active meclizine (ANTIVERT) 12.5 mg tabletIndications :Dizziness Take 1 tablet (12.5 mg total) by mouth 3 (three) times a day if needed for dizziness. 30 tablet 025 2024 Active fexofenadine (ROS) 180 mg tablet Take 1 tablet (180 mg total) by mouth 1 (one) time each day if needed (alleriges). 90 tablet 3 025 2025 Active sertraline (ZOLOFT) 25 mg tablet Take 1 tablet (25 mg total) by mouth 1 (one) time each day. 90 each 1 025 2024 Active amLODIPine (NORVASC) 2.5 mg tablet TAKE 1 TABLET BY MOUTH DAILY 90 tablet Active lisinopriL (PRINIVIL,ZESTRIL ) 10 mg tablet Take 1 tablet (10 mg total) by mouth 1 (one) time each day. 90 tablet 1 Active LORazepam (ATIVAN) 1 mg tablet Take 1 tablet (1 mg total) by mouth 1 (one) time each day if needed for anxiety for up to 28 days. Ok to fill 05/29/24 Max Daily Amount: 1 mg 28 tablet Active Ubrelvy 100 mg tablet TAKE 1/2 - 1 TABLET BY MOUTH ONCE NEEDED FOR MIGRAINE FOR 30 DAYS TAKE AT ONSET OF MIGRAINE MAY REPEAT DOSE IN 2 HOURS MAY TAKE TYLENOL Active denosumab (Prolia) 60 mg/mL syringe syringe INJECT 1 SYRINGE (60MG) UNDER THE SKIN EVERY 6 MONTHS 1 mL 1 Active insulin glargine (Lantus Solostar U-100 Insulin) 100 unit/mL (3 mL) injection pen Inject 20 units sc at bedtime, go up by 4 units every 4 days if BS readings above 130. Max dose 40 units 15 mL 11 Active Jardiance 25 mg tablet Take 1 tablet (25 mg total) by mouth 1 (one) time each day. 90 tablet 3 Active LORazepam (ATIVAN) 0.5 mg tablet Take 1 tablet (0.5 mg total) by mouth 1 (one) time each day for 28 days. Max Daily Amount: 0.5 mg 28 each 025 2024 Active isosorbide mononitrate (IMDUR) 30 mg 24 hr tablet TAKE 2 TABLETS BY MOUTH DAILY 180 tablet 1 Active pen needle, diabetic 32 gauge x 1/4 needle 200 each 1 (one) time each day. 200 each 11 Active sodium zirconium cyclosilicate (LOKELMA) 10 gram packet Take 10 g by mouth 1 (one) time each day for 15 days. Mix contents of the packet(s) into a glass with at least 3 tablespoons of water and stir well. Drink the mixture right away. If any powder is left in the glass, add more water, stir, and drink it right away to make sure all the medicine has been taken. 15 packet 025 2024 Active isosorbide mononitrate (IMDUR) 30 mg 24 hr tablet TAKE 2 TABLETS BY MOUTH DAILY 024 2024 Discontinued Active Problems Problem Noted Date Diagnosed Date Vitamin B12 deficiency 10/11/2024 Right bundle branch block 10/11/2024 MR (mitral regurgitation) 07/12/2023 Assessment & Plan (08/15/2024 1:06 PM EDT): Mild by previous echocardiograms, but seemed improved on 2023 echocardiogram. Continue to monitor by echocardiogram as per [facility] standards and as clinically indicated. Headache 07/10/2023 Chronic pain of both knees 01/11/2023 Primary osteoarthritis of both knees 01/11/2023 Urinary incontinence 01/11/2023 Kidney lesion, [place], right 05/20/2022 Chronic rhinitis 06/10/2021 CAD (coronary [...] (diabetes mellitus), type 2 with neurological complications ([facility] V24, [facility] V28) 10/07/2016 Elevated sed rate 10/23/2015 Lung nodules 10/23/2015 CKD (chronic kidney disease) stage 3, GFR 30-59 ml/min ([facility] V24, [facility] V28) 03/17/2015 Overview (01/18/2024): Dr Reyes Tremor [...] (diabetes mellitus), type 2 with renal complications ([facility] V24, [facility] V28) 04/14/2005 Encounters Date Type Department Care Team Description 12/10/2024 12:33 PM EDT - 12/10/2024 11:59 PM EDT Hospital Encounter CT Scan - [address] [phone] Lung nodules Discharge Disposition: Home or Self Care 12/09/2024 Telephone Internal Medicine [address] [phone] Fernanda Robins MD Lab Results 12/03/2024 2:30 PM EDT Lab Draw Station [address] Stage 3 chronic kidney disease, unspecified whether stage 3a or 3b CKD ([facility] V24, [facility] V28); Osteoporosis, unspecified osteoporosis type, unspecified pathological fracture presence 12/03/2024 1:30 PM EDT Office Visit Internal Medicine - [address] [phone] Fernanda Robins MD Unilateral hearing loss (Primary Dx); Stage 3 chronic kidney disease, unspecified whether stage 3a or 3b CKD ([facility] V24, [facility] V28); Bilateral carotid bruits 12/03/2024 Telephone Adult Medicine [facility] [address] [place] [address] Efraín Rodriguez MD 11/13/2024 10:21 AM EDT - 11/13/2024 11:59 PM EDT Hospital Encounter [facility] Ultrasound [address] [place] [phone] Discharge Disposition: Home or Self Care 10/31/2024 2:00 PM EDT Office Visit Endocrinology - [address] [phone] Sarah Cobian PA DM (diabetes mellitus), type 2 with neurological complications (CMS/HCC V24, [facility] V28) (Primary Dx); Osteoporosis, unspecified osteoporosis type, unspecified pathological fracture presence; Thyroid nodule 10/31/2024 Telephone Endocrinology - [address] [phone] Sarah Cobian PA 10/29/2024 10:52 AM EDT - 10/29/2024 11:59 PM EDT [facility] [address] [place], [place] [phone] Acute right flank pain Discharge Disposition: Home or Self Care 10/24/2024 11:05 AM EDT Lab Draw Station - [address] DM (diabetes mellitus), type 2 with neurological complications ([facility] V24, [facility] V28); Acute right flank pain 10/24/2024 10:00 AM EDT Office Visit Internal Medicine - [address] [phone] Fernanda Robins MD Acute right flank pain (Primary Dx); DM (diabetes mellitus), type 2 with neurological complications (CMS/HCC V24, CMS/HCC V28); Kidney lesion, [place], right; Anxiety and depression; Renal cyst 10/15/2024 4:45 PM EDT Office [place] [facility] [address] [place] [phone] Lanette Wilson NP Excessive cerumen in right ear canal (Primary Dx) 10/14/2024 [facility] [address] [phone] Fernanda Robins MD prior auth 10/11/2024 1:00 PM EDT Office Visit Internal Medicine - [address] [phone] Deya Henriquez NP Anxiety and depression (Primary Dx); Encounter for long-term (current) use of high-risk medication; Screen for colon cancer; Dizziness; Right carpal tunnel syndrome; Radiculitis, lumbosacral; Radiculitis, cervical; Polyneuropathy; Chronic nonintractable headache, unspecified headache type; DM (diabetes mellitus), type 2 with neurological complications ([facility] V24, [facility] V28); Chronic pain of both knees; Moderate persistent asthma without complication; Lung nodules; Chronic rhinitis; Primary hypertension; Type 2 diabetes mellitus with stage 3b chronic kidney disease, without long-term current use of insulin ([facility] V24, [facility] V28); Osteoporosis, unspecified osteoporosis type, unspecified pathological fracture presence; Spinal stenosis in cervical region; Iron deficiency anemia, unspecified iron deficiency anemia type; Tremor; Vitamin B12 deficiency; Hyperlipidemia, unspecified hyperlipidemia type; Left upper quadrant pain 10/11/2024 Telephone Internal Medicine - [address] [phone] Fernanda Robins MD faxed order ([facility]) 09/30/2024 2:45 PM EDT Consult General Surgery - [place] [facility] [address] [place] [phone] Sarthak Ren MD Left upper quadrant abdominal pain 09/18/2024 Telephone Internal Medicine - [address] [phone] Fernanda Robins MD Medication Problem 09/17/2024 Telephone [facility] [place] [address] [place] [phone] Umang Corado NP Med Refill 09/12/2024 11:30 AM EDT Office Visit Pulmonolgy - [place] [address] [facility] [address] [place] [address] Denia Mcdonnell MD Moderate persistent asthma, unspecified whether complicated (Primary Dx); DUARTE (dyspnea on exertion) 09/11/2024 1:30 PM EDT Consult Orthopedic Surgery - [place] [address] [facility] [address] [place] [address] Mao Mitchell MD Right carpal tunnel syndrome from Last 3 Months Immunizations Name Administration Dates Next Due Hepatitis B (Zumfksr-T-Wkqti , Recombivax HB-Adult) 19yo and older 02/24/2009 [...] negative examination. UPPER GASTROINTESTINAL ENDOSCOPY 12/12/2016 PROCEDURE: MO UPPER GI ENDOSCOPY PERFORMED; COMMENT: Visually normal; duodenal biopsies: normal. OTHER SURGICAL HISTORY 01/04/2017 PROCEDURE: OUTSIDE ENDOSCOPY; COMMENT: [facility]; intestinal pillcam normal. Medical History Medical History Date Comments Essential hypertension, benign 03/06/2006 D X:Essential hypertension, benign Herpes zoster DX:Herpes zoster Type 2 diabetes mellitus wit h renal manifestations ([facility] V24, [facility] V28) 04/14/2005 DX:Type 2 diabetes mellitus with renal manifestations ([facility]) Tremor 01/20/2011 DX:Tremor Spinal stenosis in cervical [...] kidney disease) stage 3, GFR 30-59 ml/min ([facility] V24, [facility] V28) 03/17/2015 DX:CKD (chronic kidney disea se) stage 3, GFR 30-59 ml/min ([facility]) Unspecified asthma(493.90) 04/14/2005 DX:Un specified asthma(493.90) Anxiety and depression 01/22/2009 DX:Anxiet y and depression Diverticulitis large intestine 03/06/2006 D X:Diverticulitis large intestine; COMMENT: As of 2018; approx 4 uncomplicated attacks. DM (diabetes mellitus), type 2 with neurological complications ([facility] V24, [facility] V28) 10/07/2016 DX:DM (diabetes mellitus), t ype 2 with neurological complications (HCC) Polyneuropathy 07/02/2020 DX:Polyneuropath y DM (diabetes mellitus), type 2 with renal complications ([facility] V24, [facility] V28) 04/14/2005 DX:DM (diabetes mellitus), t ype [...] for your loved ones. For example, child protective services social worker or elderly care for an older adult? [...] Female 02/21/2024 10:31 AM EDT Sexual Orientation Straight 11/01/2024 4: 06 PM EDT Obstetrics History Para Term AB IAB SAB [...] Sign Reading Time Taken Comments Blood Pressure 122/52 12/03/2024 1:21 PM EDT aut o Pulse 68 12/03/2024 1:21 PM EDT Temperature 35.9 C (96.6 F) 10/31/2024 2:11 PM EDT Respiratory Rate 19 03/12/2024 1:15 PM EST Oxygen Saturation 97% 07/23/2024 1:32 PM EDT Inhaled Oxygen Concentration - - Weight 68.9 kg (151 lb 12.8 oz) 12/03/2024 1:21 PM EDT Height 160 cm (5' 3 ) 12/03/2024 1:21 PM EDT Body Mass Index 26.89 12/03/2024 1:21 PM EDT Plan of Treatment Upcoming Encounters Date Type Department Care Team (Late st Contact Info) Description 12/16/2024 12:45 PM EDT Appointment Ultrasound - [address] [phone] 12/24/2024 9:15 AM EDT Office Visit Internal Medicine - [address] [phone] Deya Henriquez NP [address] [place] [address] 12/26/2024 2:00 PM EDT Appointment [facility] Bone Density [address] [place] [phone] 01/03/2025 9:20 AM EDT Consult Gastroenterology - [place] [facility] [address] [facility] [address] [place] [phone] Tresa Douglas, KIRAN [address] [address] 02/04/2025 1:00 PM EDT Office Visit Endocrinology [address] [phone] Sarah Cobian PA [address] [place] [address] Health Maintenance Due Date Last Done Comments Zoster Vaccines (1 of 2) 1964 Hepatitis B Vaccines (2 of 3 - 19+ 3-dose series) 03/24/2009 02/24/2009 COVID-19 Vaccine (3 - Moderna risk series) 10/10/2020 09/12/2020, 08/15/2020 RSV Immunization Adult Patients (1 - 1-dose 75+ series) 2022 Diabetes: Annual Urine Albumin-Creatinine Ratio (uACR) 10/12/2022 10/12/2021 Diabetes: Annual Foot Exam 02/11/2023 02/11/2022 Diabetes: Blood Sugar Control Test (HGBA1C) 06/05/2025 12/03/2024, 08/26/2024, 05/22/2024, Additional history exists Diabetes: Annual Retina Eye Exam 06/25/2025 06/25/2024, 04/02/2024, 10/30/2023 Falls Risk Assessment 07/25/2025 07/25/2024 Medicare Annual Wellness Visit 07/25/2025 07/25/2024 Social Influencers of Health Screening 07/25/2025 07/25/2024 Diabetes: Annual GFR (Glomerular Filtration Rate) 12/03/2025 12/03/2024, 10/24/2024, 09/04/2024, Additional history exists Hypertension/CHF/CAD Annual BMP Blood Test 12/03/2025 12/03/2024, 10/24/2024, 09/04/2024, Additional history exists Cholesterol Screening (Lipid Panel) 10/24/2029 10/24/2024, 01/11/2023 DTaP,Tdap,and Td Vaccines (4 - Td or Tdap) 06/19/2030 06/19/2020, 01/10/2019, 07/16/2010 Osteoporosis Screening (Bone Density Screening) 12/22/2032 12/22/2022, 10/15/2020, 02/13/2019, Additional history exists Hepatitis C Screening Completed 12/18/2014 Pneumococcal Vaccine: 50+ Years Completed 01/09/2017, 02/03/2012 Influenza Vaccine Discontinued 02/11/2022, , 02/27/2020, Additional history exists Colorectal Cancer Screening: Colonoscopy Discontinued 02/26/2024 Depression Screening Completed 07/25/2024 HIB Vaccines Aged Out No longer eligi [...] Name Priority Date/Time Associated Diagnosis Comments CT CHEST WO CONTRAST Routine 12/10/2024 12:43 PM EDT Lung nodules HEMOGLOBIN A1C Routine 12/03/2024 2:39 PM EDT Osteoporosis, unspecified osteoporosis type, unspecified pathological fracture presence BASIC METABOLIC PANEL Routine 12/03/2024 2:39 PM EDT Stage 3 chronic kidney disease, unspecified whether stage 3a or 3b CKD (CMS/HCC V24, CMS/HCC V28) US HEAD NECK SOFT TISSUE Routine 11/13/2024 10:39 AM EDT Thyroid nodule POC GLUCOSE Routine 10/31/2024 2:07 PM EDT DM (diabetes mellitus), type 2 with neurological complications (CMS/HCC V24, CMS/HCC V28) US RETROPERITONEAL COMPLETE STAT 10/29/2024 11:41 AM EDT Acute right flank pain BENITEZ URINE CULTURE TUBE Routine 10/25/19 11:05 AM EDT Acute right flank pain URINALYSIS WITH REFLEX MICROSCOPIC AND CULTURE Routine 10/24/2024 11:05 AM EDT Acute right flank pain URINALYSIS WITH REFLEX MICROSCOPIC AND CULTURE Routine 10/24/2024 11:05 AM EDT Acute right flank pain COMPREHENSIVE METABOLIC PANEL Routine 10/24/2024 11:05 AM EDT DM (diabetes mellitus), type 2 with neurological complications (CMS/HCC V24, CMS/HCC V28) Acute right flank pain LIPID PANEL WITH REFLEX TO DIRECT LDL Routine 10/24/2024 11:05 AM EDT DM (diabetes mellitus), type 2 with neurological complications (CMS/HCC V24, CMS/HCC V28) MO REMOVAL CERUMEN IMPACTED IRRIGATION/LAVAGE UNILATERAL Routine 10/15/2024 5:00 PM EDT Excessive cerumen in right ear canal DRUG ABUSE SCREEN EXPANDED WITH REFLEX CONFIRMATION, URINE Routine 10/11/2024 1:46 PM EDT Encounter for long-term (current) use of high-risk medication EXTERNAL DIABETIC RETINA EYE EXAM 06/25/2024 COLONOSCOPY Routine 02/26/2024 11:47 AM EST Diverticulitis of colon (without mention of hemorrhage)(562.11) DXA BONE DENSITY STUDY 1+ SITS AXIAL SKEL Routine 12/22/2022 2:34 PM EDT Age-related osteoporosis without current pathological fracture DIABETES FOOT EXAM Routine 02/11/2022 URINE ALBUMIN CREATININE RATIO Routine 10/12/2021 HEPATITIS C SCREENING Routine 12/18/2014 from Last 3 Months or Most Recently Relevant to Health Maintenance Results * CT Chest wo Contrast (12/10/2024 12:43 PM EDT) Anatomical Region Laterality Modality Body Computed Tomogra phy 12/10/2024 11:4 9 PM EDT Impressions 12/11/2024 9:21 AM EDT Bilateral pulmonary nodules are stable as far back as 06/22/2016. No new nodule detected. POS - [id number] -------- FINAL REPORT -------- Dictated By: Ailyn Lee Dictated Date: 12/10/2024 23:49 ET Assigned Physician: Ailyn Lee Reviewed and Electronically Signed By: Ailyn Lee Signed Date: 12/11/2024 09:21 ET Workstation ID: [id number] Transcribed By: Self Edit Transcribed Date: 12/11/2024 00:13 ET Narrative 12/11/2024 9:21 AM EDT EXAM: Chest CT HISTORY: Follow-up pulmonary nodules. COMPARISON: 08/24/2017 and 06/22/2016 TECHNIQUE: Multidetector CT is obtained from lung apex to base without IV contrast. Sagittal and coronal reformatted images obtained. Automated exposure control utilized. TOTAL CTDIvol: 11.29 mGy FINDINGS: Lungs/pleura: Stable pulmonary nodules: 4 mm right lower lobe image 193, 4 mm subpleural right lower lobe image 226, 3 mm subpleural right middle lobe image 215, and 4 mm left lower lobe along the major fissure image 223. Stable subpleural nodularity in the right upper lobe. No new nodule detected. No mass or consolidation. Trachea and central airways are patent. No pleural effusions. Lymph nodes: Sensitivity for lymphadenopathy is limited without IV contrast. Subcentimeter mediastinal lymph nodes. No definite enlarged hilar lymph nodes. Cardiovascular: Heart is not enlarged. Minimal anterior pericardial fluid or thickening again noted. Coronary calcifications. Dense calcifications of the mitral valve annulus and aortic valve calcifications. Scattered atherosclerotic calcifications in the aorta and great vessels. No thoracic aortic aneurysm. Soft tissues: 1.8 cm hypodense nodule in the right thyroid lobe is similar in size to ultrasound 05/27/2022, this nodule was biopsy-proven benign on 09/14/2020. No esophageal abnormality. Upper abdomen: No mass in the partially imaged adrenal glands. Colonic diverticulosis. Bones: Multilevel bridging endplate osteophytes. Partially imaged anterior spinal fusion hardware in the lower cervical spine. Procedure Note Ailyn Lee MD - 12/11/2024 EXAM: Chest CT HISTORY: Follow-up pulmonary nodules. COMPARISON: 08/24/2017 and 06/22/2016 TECHNIQUE: Multidetector CT is obtained from lung apex to base without IVcontrast. Sagittal and coronal reformatted images obtained. Automatedexposure control utilized. TOTAL CTDIvol: 11.29 mGy FINDINGS: Lungs/pleura: Stable pulmonary nodules: 4 mm right lower lobe image 193, 4mm subpleural right lower lobe image 226, 3 mm subpleural right middlelobe image 215, and 4 mm left lower lobe along the major fissure . Stable subpleural nodularity in the right upper lobe. No new noduledetected. No mass or consolidation. Trachea and central airways arepatent. No pleural effusions. Lymph nodes: Sensitivity for lymphadenopathy is limited without IVcontrast. Subcentimeter mediastinal lymph nodes. No definite enlargedhilar lymph nodes. Cardiovascular: Heart is not enlarged. Minimal anterior pericardial fluidor thickening again noted. Coronary calcifications. Dense calcificationsof the mitral valve annulus and aortic valve calcifications. Scatteredatherosclerotic calcifications in the aorta and great vessels. No thoracicaortic aneurysm. Soft tissues: 1.8 cm hypodense nodule in the right thyroid lobe is similarin size to ultrasound 05/27/2022, this nodule was biopsy-proven benign on09/14/2020. No esophageal abnormality. Upper abdomen: No mass in the partially imaged adrenal glands. Colonicdiverticulosis. Bones: Multilevel bridging endplate osteophytes. Partially imaged anteriorspinal fusion hardware in the lower cervical spine. IMPRESSION: Bilateral pulmonary nodules are stable as far back as 06/22/2016. No newnodule detected. POS - [id number] -------- FINAL REPORT -------- Dictated By: Ailyn Lee Dictated Date: 12/10/2024 23:49 ET Assigned Physician: Ailyn Lee Reviewed and Electronically Signed By: Ailyn Lee Signed Date: 12/11/2024 09:21 ET Workstation ID: [id number] Transcribed By: Self Edit Transcribed Date: 12/11/2024 00:13 ET us Deya Wooten NP IMG CT PROCEDURES Final Resu lt * (ABNORMAL) Hemoglobin A1c (12/03/2024 2:39 PM EDT) Hemoglobin A1C 8.4(H) <6.5 % LAB CHEMISTRY METHOD 12/04/2024 12:02 PM EDT [facility] Mean Bld Glu Estim. 194 mg/dL LAB CHE[facility]STR[facility] Blood Venous blood specimen / Unknown Venipuncture / Unknown 12/03/2024 2:39 PM EDT 12/03/2024 2:39 PM EDT us Sarah ROTHMAN LAB BLOOD ORDERABLES Final Result [facility] [address] [place] [address], [place] [phone] * (ABNORMAL) Basic metabolic panel (12/03/2024 2:39 PM EDT) Sodium 137 133 - 145 mmol/L LAB CHEMISTRY METHOD 12/03/2024 7:07 PM [facility] Potassium 6.4(HH) 3.5 - 5.5 mmol/L LAB CHEMISTRY METHOD 12/03/2024 7:07 PM [facility] Chloride 110 96 - 110 mmol/L LAB CHEMISTRY METHOD 12/03/2024 7:07 PM [facility] CO2 24 21 - 32 mmol/L LAB CHEMISTRY METHOD 12/03/2024 7:07 PM [facility] Anion Gap 3 3 - 11 LAB CHEMISTRY METHOD 12/03/2024 7:07 PM [facility] Glucose 91 70 - 100 mg/dL LAB CHEMISTRY METHOD 12/03/2024 7:07 PM [facility] BUN 34(H) 5 - 25 mg/dL LAB CHEMISTRY METHOD 12/03/2024 7:07 PM [facility] Creatinine 1.45(H) 0.50 - 1.10 mg/dL LAB CHEMISTRY METHOD 12/03/2024 7:07 PM [facility] eGFR 37(L) >=60 mL/min/1. 73m2 LAB CHEMISTRY METHOD 12/03/2024 7:07 PM [facility] Comment:Calculation based on the Chronic Kidney Disease Epidemiology Collaboration (CKD-EPI) equation refit without adjustment for race. BUN/Creatinine Ratio 23.4 LAB CHEMISTRY METHOD 12/03/2024 7:07 PM EDT [facility] Calcium 8.6 8.5 - 10.5 mg/dL LAB CHEMISTRY METHOD 12/03/2024 7:07 PM EDT [facility] Blood Venous blood specimen / Unknown Venipuncture / Unknown 12/03/2024 2:39 PM EDT 12/03/2024 2:39 PM EDT us Fernanda Robins MD LAB BLOOD ORDERABLES Final Res ult [facility] [address] [place] [address], [place] [phone] * [place] Head Neck Soft Tissue (11/13/2024 10:39 AM EDT) Anatomical Region Laterality Modality Head and Neck Ultrasound 11/13/2024 11:3 6 AM EDT Impressions 11/13/2024 11:44 AM EDT 1. In the right lobe, there is a 1.8 x 1.3 x 1.3 cm TI-RADS 2 nodule in the interpolar region. 2. In the left lobe, there is a 0.4 x 0.2 x 0.4 cm TI-RADS 2 nodule at the upper pole. Code 89145 TI-RADS Category 1: 0 pts; benign; no follow-up TI-RADS Category 2: 2 pts; not suspicious; no FNA TI-RADS Category 3: 3 pts; mildly suspicious; < or = 1.5 cm f/u; > or = 2.5 FNA (f/u 1, 3 and 5 yr) TI-RADS Category 4: 4-6 pts; moderately suspicious; < or = 1.0 cm follow-up; 1.5 cm FNA, (f/u 1, 2, 3 and 5 yr) TI-RADS Category 5: 7 or > pts; highly suspicious; .5-.9 cm f/u; 1.0 cm or > FNA (f/u annually up to 5 yr) -------- FINAL REPORT -------- Dictated By: Shawn Gutierrez Dictated Date: 11/13/2024 11:36 ET Assigned Physician: Shawn Gutierrez Reviewed and Electronically Signed By: Shawn Gutierrez Signed Date: 11/13/2024 11:44 ET Workstation ID: [id number] Transcribed By: Self Edit Transcribed Date: 11/13/2024 11:40 ET Narrative 11/13/2024 11:44 AM EDT HISTORY: The patient is a 79-year-old female with clinical concern for a thyroid nodule. No previous thyroid imaging is available for comparison. FINDINGS: Real-time ultrasonography of the thyroid gland is performed. The thyroid is normal in size with the right lobe measuring 4.6 x 1.7 x 1.6 cm and the left lobe measuring 3.5 x 1.1 x 1.4 cm. The isthmus measures 3.8 mm in thickness. At the interpolar region of the right lobe, there is a well-circumscribed oval slightly hyperechoic mixed cystic and solid nodule measuring 1.8 x 1.3 x 1.3 cm. This is wider than it is tall and demonstrates no wall irregularity or calcifications. This is categorized as TI-RADS 2. At the upper pole of the left lobe, there is a small, well-circumscribed hypoechoic spongiform nodule measuring 0.4 x 0.2 x 0.4 cm. This is wider than it is tall and demonstrates no wall irregularity or calcifications. This is categorized as TI- RADS 2. Procedure Note Shawn Gutierrez MD - 11/13/2024 HISTORY: The patient is a 79-year-old female with clinical concern for athyroid nodule. No previous thyroid imaging is available for comparison. FINDINGS: Real-time ultrasonography of the thyroid gland is performed. Thethyroid is normal in size with the right lobe measuring 4.6 x 1.7 x 1.6 cmand the left lobe measuring 3.5 x 1.1 x 1.4 cm. The isthmus measures 3.8mm in thickness. At the interpolar region of the right lobe, there is a well-circumscribedoval slightly hyperechoic mixed cystic and solid nodule measuring 1.8 x1.3 x 1.3 cm. This is wider than it is tall and demonstrates no wallirregularity or calcifications. This is categorized as TI-RADS 2. At the upper pole of the left lobe, there is a small, well- circumscribedhypoechoic spongiform nodule measuring 0.4 x 0.2 x 0.4 cm. This is widerthan it is tall and demonstrates no wall irregularity or calcifications.This is categorized as TI- RADS 2. IMPRESSION: 1. In the right lobe, there is a 1.8 x 1.3 x 1.3 cm TI-RADS 2 nodule inthe interpolar region. 2. In the left lobe, there is a 0.4 x 0.2 x 0.4 cm TI-RADS 2 nodule at theupper pole. Code 12739 TI-RADS Category 1: 0 pts; benign; no follow-up TI-RADS Category 2: 2 pts; not suspicious; no FNA TI-RADS Category 3: 3 pts; mildly suspicious; < or = 1.5 cm f/u; > or =2.5 FNA (f/u 1, 3 and 5 yr) TI-RADS Category 4: 4-6 pts; moderately suspicious; < or = 1.0 cmfollow-up; 1.5 cm FNA, (f/u 1, 2, 3 and 5 yr) TI-RADS Category 5: 7 or > pts; highly suspicious; .5-.9 cm f/u; 1.0 cmor > FNA (f/u annually up to 5 yr) -------- FINAL REPORT -------- Dictated By: Shawn Gutierrez Dictated Date: 11/13/2024 11:36 ET Assigned Physician: Shawn Gutierrez Reviewed and Electronically Signed By: Shawn Gutierrez Signed Date: 11/13/2024 11:44 ET Workstation ID: [id number] Transcribed By: Self Edit Transcribed Date: 11/13/2024 11:40 ET us Sarah ROTHMAN IMG US PROCEDURES Final Res ult * POC glucose manually resulted (10/31/2024 2:07 PM EDT) Glucose POC 146 mg/dL Blood Capillary blood specimen / Unknown 10/31/2024 2:07 PM EDT us Sarah ROTHMAN POINT OF CARE TEST ENTER/ED IT ORDERABLES Final Result * US Retroperitoneal Complete (10/29/2024 11:41 AM EDT) Anatomical Region Laterality Modality Body Ultrasound 10/29/2024 11:5 1 AM EDT Impressions 10/29/2024 11:55 AM EDT 2.9 x 1.9 x 2.4 cm right renal cyst corresponding to the CT finding. The subcentimeter hyperdense lesions seen in the right kidney on the CT are not identified on the ultrasound. These may represent tiny hyperdense cysts. -------- FINAL REPORT -------- Dictated By: Sharon Bolaños Dictated Date: 10/29/2024 11:51 ET Assigned Physician: Sharon Bolaños Reviewed and Electronically Signed By: Sharon Bolaños Signed Date: 10/29/2024 11:55 ET Workstation ID: [id number] Transcribed By: Self Edit Transcribed Date: 10/29/2024 11:51 ET Narrative 10/29/2024 11:55 AM EDT US RETROPERITONEAL COMPLETE HISTORY: Hematuria. Abnormal CT abdomen. Prior study: CT abdomen and pelvis 05/23/2024. FINDINGS: The right kidney measures 10.8 cm in length. The left kidney measures 11.5 cm in length. Both kidneys demonstrate normal echotexture. There is a 2.9 x 1.9 x 2.4 cm cyst in the lower pole the right kidney, corresponding to the slightly hyperdense lesion seen on the CT. The right renal pelvis is prominent, measuring 1.9 cm diameter. This is unchanged from the CT. No hydronephrosis, solid masses, calculi, or perinephric collections are seen. The bladder is unremarkable. Prevoid bladder volume measures 100 cc. Postvoid residual is 35 cc. Normal bilateral ureteral jets were seen in the bladder. Procedure Note Sharon Bolaños MD - 10/29/2024 US RETROPERITONEAL COMPLETE HISTORY: Hematuria. Abnormal CT abdomen. Prior study: CT abdomen and pelvis 05/23/2024. FINDINGS: The right kidney measures 10.8 cm in length. The left kidneymeasures 11.5 cm in length. Both kidneys demonstrate normal echotexture. There is a 2.9 x 1.9 x 2.4 cm cyst in the lower pole the right kidney,corresponding to the slightly hyperdense lesion seen on the CT. The rightrenal pelvis is prominent, measuring 1.9 cm diameter. This is unchangedfrom the CT. No hydronephrosis, solid masses, calculi, or perinephric collections areseen. The bladder is unremarkable. Prevoid bladder volume measures 100 cc.Postvoid residual is 35 cc. Normal bilateral ureteral jets were seen inthe bladder. IMPRESSION: 2.9 x 1.9 x 2.4 cm right renal cyst corresponding to the CT finding. The subcentimeter hyperdense lesions seen in the right kidney on the CTare not identified on the ultrasound. These may represent tiny hyperdensecysts. -------- FINAL REPORT -------- Dictated By: Sharon Bolaños Dictated Date: 10/29/2024 11:51 ET Assigned Physician: Sharon Bolaños Reviewed and Electronically Signed By: Sharon Bolaños Signed Date: 10/29/2024 11:55 ET Workstation ID: [id number] Transcribed By: Self Edit Transcribed Date: 10/29/2024 11:51 ET us Fernanda Robins MD IM US PROCEDURES Final Result * (ABNORMAL) Urinalysis with reflex microscopic and culture (10/24/2024 11:05 AM EDT) Specific [place] Urine 1.022 1.003 - 1.030 LAB URINALYSIS - AUTOMATED METHOD 10/24/2024 2:18 PM EDT [facility] pH, Urine 5.0 5.0 - 8.0 pH LAB URINALYSIS - AUTOMATED METHOD 10/24/2024 2:18 PM EDT [facility] Leukocytes, Urine Negative Negative LAB URINALYSIS - AUTOMATED METHOD 10/24/2024 2:18 PM EDT [facility] Nitrite, Urine Negative Negative LAB URINALYSIS - AUTOMATED METHOD 10/24/2024 2:18 PM EDT [facility] Protein, Urine Negative <=Trace mg/dL LAB URINALYSIS - AUTOMATED METHOD 10/24/2024 2:18 PM EDT [facility] Glucose, Urine >=1000(A) Negative mg/dL LAB URINALYSIS - AUTOMATED METHOD 10/24/2024 2:18 PM EDT [facility] Ketones, Urine Negative Negative mg/dL LAB URINALYSIS - AUTOMATED METHOD 10/24/2024 2:18 PM EDT [facility] Urobilinogen , Urine 0.2 0.2 - 1.0 mg/dL LAB URINALYSIS - AUTOMATED METHOD 10/24/2024 2:18 PM [facility] Bilirubin, Urine Negative Negative LAB URINALYSIS - AUTOMATED METHOD 10/24/2024 2:18 PM [facility] Blood, Urine Negative Negative LAB URINALYSIS - AUTOMATED METHOD 10/24/2024 2:18 PM T [facility] Urine Urine specimen obtained by clean catch procedure / Unknown Non-blood Collection / Unknown 10/24/2024 11:05 AM EDT 10/24/2024 11:05 AM EDT us Fernanda Robins MD LAB URINE ORDERABLES Final Res ult [facility] [address] [place] [address], * Benitez urine culture tube (10/24/2024 11:05 AM EDT) Extra Tube Hold for add-ons. 10/24/2024 2:01 PM EDT [facility] Comment:Auto resulted. Urine Urine specimen obtained by clean catch procedure / Unknown Non-blood Collection / Unknown 10/24/2024 11:05 AM EDT 10/24/2024 11:05 AM EDT Fernanda Robins MD LAB URINE ORDERABLES Final Res ult Performing Organization Address City/[facility]/ZIP Co de Phone Number [facility] [address] [place] [address], [place] [phone] * (ABNORMAL) Lipid panel with reflex to direct LDL (10/24/2024 11:05 AM EDT) [facility] Signature Cholesterol 239(H) 0 - 200 mg/dL LAB CHEMISTRY METHOD 10/24/2024 2:59 PM EDT [facility] Triglycerides 240(H) 0 - 150 mg/dL LAB CHEMISTRY METHOD 10/24/2024 2:59 PM EDT [facility] HDL 42 >=40 mg/dL LAB CHEMISTRY METHOD 10/24/2024 2:59 PM EDT [facility] LDL Calculated 149(H) 0 - 100 mg/dL LAB CHEMISTRY METHOD 10/24/2024 2:59 PM EDT [facility] VLDL Cholesterol Valdez 48 mg/dL LAB CHEMISTRY METHOD 10/24/2024 2:59 PM EDT [facility] Non HDL Chol. (LDL+VLDL) 197(H) <145 mg/dL LAB CHEMISTRY METHOD 10/24/2024 2:59 PM EDT [facility] Chol/HDL Ratio 5.7(H) 0.0 - 4.4 LAB CHEMISTRY METHOD 10/24/2024 2:59 PM EDT [facility] Blood Venous blood specimen / Unknown Venipuncture / Unknown 10/24/2024 11:05 AM EDT 10/24/2024 11:05 AM EDT Fernanda Robins MD LAB BLOOD ORDERABLES Final Res ult [facility] [address] [place] [address], [place] [phone] * (ABNORMAL) Comprehensive metabolic panel (10/24/2024 11:05 AM EDT) Sodium 141 133 - 145 mmol/L LAB CHEMISTRY METHOD 10/24/2024 2:59 PM [facility] Potassium 5.4 3.5 - 5.5 mmol/L LAB CHEMISTRY METHOD 10/24/2024 2:59 PM [facility] Chloride 110 96 - 110 mmol/L LAB CHEMISTRY METHOD 10/24/2024 2:59 PM [facility] CO2 25 21 - 32 mmol/L LAB CHEMISTRY METHOD 10/24/2024 2:59 PM [facility] Anion Gap 6 3 - 11 LAB CHEMISTRY METHOD 10/24/2024 2:59 PM [facility] Glucose 98 70 - 100 mg/dL LAB CHEMISTRY METHOD 10/24/2024 2:59 PM [facility] BUN 41(H) 5 - 25 mg/dL LAB CHEMISTRY METHOD 10/24/2024 2:59 PM [facility] Creatinine 1.82(H) 0.50 - 1.10 mg/dL LAB CHEMISTRY METHOD 10/24/2024 2:59 PM [facility] eGFR 28(L) >=60 mL/min/1. 73m2 LAB CHEMISTRY METHOD 10/24/2024 2:59 PM [facility] Comment:Calculation based on the Chronic Kidney Disease Epidemiology Collaboration (CKD-EPI) equation refit without adjustment for race. BUN/Creatinine Ratio 22.5 LAB CHEMISTRY METHOD 10/24/2024 2:59 PM [facility] Calcium 8.9 8.5 - 10.5 mg/dL LAB CHEMISTRY METHOD 10/24/2024 2:59 PM [facility] AST (SGOT) 15 10 - 42 unit/L LAB CHEMISTRY METHOD 10/24/2024 2:59 PM [facility] ALT (SGPT) 26 10 - 60 unit/L LAB CHEMISTRY METHOD 10/24/2024 2:59 PM EDT [facility] Alkaline Phosphatase 98 42 - 121 unit/L LAB CHEMISTRY METHOD 10/24/2024 2:59 PM EDT [facility] Total Protein 7.7 6.0 - 8.0 g/dL LAB CHEMISTRY METHOD 10/24/2024 2:59 PM EDT [facility] Albumin 3.9 3.2 - 5.0 g/dL LAB CHEMISTRY METHOD 10/24/2024 2:59 PM EDT [facility] Total Bilirubin 0.2 0.0 - 1.4 mg/dL LAB CHEMISTRY METHOD 10/24/2024 2:59 PM EDT [facility] Blood Venous blood specimen / Unknown Venipuncture / Unknown 10/24/2024 11:05 AM EDT 10/24/2024 11:05 AM EDT Fernanda Robins MD LAB BLOOD ORDERABLES Final Res ult [facility] [address] [place] [address], [place] [phone] * MO REMOVAL CERUMEN IMPACTED IRRIGATION/LAVAGE UNILATERAL (10/15/2024 5:00 PM EDT) Narrative Lanette Wilson NP - 10/15/2024 5:00 PM EDT Lanette Wilson NP 10/15/2024 5:01 PM Ear cerumen removal Date/Time: 10/15/2024 5:00 PM Performed by: Lanette Wilson NP Authorized by: Lanette Wilson NP Informed Consent: Laterality: Right Procedure/treatment, purpose, treatment alternatives, risks/potential complications and benefits explained: yes Patient questions answered: yes Patient agrees, verbalizes understanding, and wants to proceed: yes Consent given by: Patient Procedure details: Location: R ear Procedure type: irrigation Post-procedure details: Inspection: TM intact Hearing quality: Improved Patient tolerance of procedure: Tolerated well, no immediate complications us Lanette Steve SUGAR REFINERY SUPERVISOR IN CLINIC/BEDSIDE ORDERABLES F inal Result * Drug abuse screen expanded with reflex confirmation, urine (10/11/2024 1:46 PM EDT) Amphetamine Screen, Ur Negative Negative LAB CHEMISTRY METHOD 10/11/2024 5:02 PM [facility] Comment:Certain OTC medicati ons containing ephedrine, phenylephrine, pseudoephedrine and phenylpropanolamine can cause false positive results. Barbiturate Screen, Ur Negative Negative LAB CHEMISTRY METHOD 10/11/2024 5:02 PM EDT [facility] Benzodiazepine Screen, Ur Negative Negative [facility]STRY [facility] Cocaine Screen, Ur Negative Negative LAB CHEMISTRY METHOD 10/11/2024 5:02 PM [facility] Opiate Screen, Ur Negative Negative LAB CHEMISTRY METHOD 10/11/2024 5:02 PM [facility] Cannabinoid (THC) Screen, Ur Negative Negative LAB CHEMISTRY METHOD 10/11/2024 5:02 PM [facility] Comment:Specimens from patie nts taking pantoprazole sodium (Protonix) have been shown to produce false positive results. Fentanyl, Ur Negative Negative LAB CHEMISTRY METHOD 10/11/2024 5:02 PM [facility] Oxycodone Screen, Ur Negative Negative LAB CHEMISTRY METHOD 10/11/2024 5:02 PM [facility] Urine Urine specimen obtained by clean catch procedure / Unknown Non-blood Collection / Unknown 10/11/2024 1:46 PM EDT 10/11/2024 1:46 PM EDT Narrative [facility] - 10/11/2024 5:02 PM EDT Assay cutoffs: Amphetamines 1000 ng/mL Barbiturates 200 ng/mL Benzodiazepines 200 ng/mL Cocaine 300 ng/mL Fentanyl 1 ng/mL Opiates 300 ng/mL Oxycodone 100 ng/mL THC 50 ng/mL Semi-quantitative assay for screening purposes only. Unconfirmed screening result should not be used for non-medical purposes. *POSITIVE RESULTS ARE AUTOMATICALLY SENT FOR ALTERNATE METHOD CONFIRMATION* Deya Wooten NP LAB URINE ORDERABLES Final R esult [facility] [address] [place] [address], [place] [phone] * External Diabetic Retina Eye Exam Report (06/25/2024) Anatomical Region Laterality Modality Ultrasound Provider [facility] IMG US PROCEDURES Final Result * COLONOSCOPY Anesthesia - MAC; [facility] ENDOSCOPY (02/26/2024 11:47 AM EST) Anatomical Region Laterality Modality Endoscopy 02/26/2024 11:1 8 AM EST Narrative 02/26/2024 11:47 AM EST [facility] GI Patient Name: Laura Kidd Procedure Date: 02/26/2024 11:18 AM Date of : 1945 Age: 79 Room: ROOM 16 Gender: Female Note Status: Finalized Attending MD: Shlomo Cast DO, [id number] Procedure Date No Time: 02/26/2024 Procedure: Colonoscopy Indications: Screening for colorectal malignant neoplasm Providers: Shlomo Cast DO Referring MD: Shlomo Cast DO Medicines: Monitored Anesthesia Care Complications: No immediate complications. Estimated blood loss: Minimal. Estimated Blood Loss: Estimated blood loss was minimal. Procedure: Pre-Anesthesia Assessment: - - Prior to the procedure, a History and Physical was performed, and patient medications and allergies were reviewed. The patient is competent. The risks and benefits of the procedure and the sedation options and risks were discussed with the patient. All questions were answered and informed consent was obtained. Patient identification and proposed procedure were verified by the physician, the nurse, the anesthesiologist, the sybase developer and the research technician in the pre-procedure area in the endoscopy suite. Mental Status Examination: alert and oriented. Airway Examination: normal oropharyngeal airway and neck mobility. Respiratory Examination: clear to auscultation. CV Examination: normal. Prophylactic Antibiotics: The patient does not require prophylactic antibiotics. Prior Anticoagulants: The patient has taken no anticoagulant or antiplatelet agents. ASA Grade Assessment: II - A patient with severe systemic disease. After reviewing the risks and benefits, the patient was deemed in satisfactory condition to undergo the procedure. The anesthesia plan was to use monitored anesthesia care (MAC). Immediately prior to administration of medications, the patient was re-assessed for adequacy to receive sedatives. The heart rate, respiratory rate, oxygen saturations, blood pressure, adequacy of pulmonary ventilation, and response to care were monitored throughout the procedure. The physical status of the patient was re-assessed after the procedure. After I obtained informed consent, the scope was passed under direct vision. Throughout the procedure, the patient's blood pressure, pulse, and oxygen [...] The polyp was removed with a cold snare. Resection and retrieval were complete. Estimated blood loss was minimal. The exam was otherwise without abnormality on direct and retroflexion views. Impression: - Hemorrhoids found on perianal exam. - One 8 mm polyp in the sigmoid colon, removed with a cold snare. Resected and retrieved. - The examination was otherwise normal on direct and retroflexion views. Recommendation: - - Discharge patient to home. - High fiber diet. - Continue present medications. - Await pathology results. - Repeat colonoscopy for surveillance based on pathology results. Procedure Code(s): --- Professional --- 62201, Colonoscopy, flexible; with removal of tumor(s), polyp(s), or other lesion(s) by snare technique Diagnosis Code(s): --- Professional --- K64.9, Unspecified hemorrhoids Z12.11, Encounter for screening for malignant neoplasm of colon D12.5, Benign neoplasm of sigmoid colon CPT copyright 2020 [employer]. All rights reserved. The codes documented in this report are preliminary and upon block inspector review may be revised to meet current compliance requirements. SHLOMO CAST Shlomo Cast DO 02/26/2024 11:47:38 AM This report has been signed electronically.Shlomo Cast DO Number of Addenda: 0 Note Initiated On: 02/26/2024 11:18 AM Scope Withdrawal Time: 0 hours 7 minutes 15 seconds Scope In: 11:34:19 AM Scope Out: 11:45:11 AM Endoscopy Department at [facility] - [address] [place] [phone] Procedure Note Shlomo Cast DO - 02/26/2024 [facility] GI Patient Name: Laura Kidd Procedure Date: 02/26/2024 11:18 AM Date of : 1945 Age: 79 Room: ROOM 16 Gender: Female Note Status: Finalized Attending MD: Shlomo Cast DO,[id number] Procedure Date No Time: 02/26/2024 Procedure: Colonoscopy [...] the physician, the nurse, the anesthesiologist, the sybase developer and thetechnician in the pre-procedure area in [...] pathology results. Procedure Code(s): --- Professional --- 51338, Colonoscopy, flexible; with removal of tumor(s), polyp(s), or other lesion(s) by snare technique Diagnosis Code(s): --- Professional --- K64.9, Unspecified hemorrhoids Z12.11, Encounter for screening for malignantneoplasm of colon D12.5, Benign neoplasm of sigmoid colon CPT copyright 2020 [employer]. All rights reserved. The codes documented in this report are preliminary and upon block inspector reviewmay be revised to meet current compliance requirements. SHLOMO CAST Shlomo Cast DO 02/26/2024 11:47:38 AM This report has been signed electronically.Shlomo Cast DO Number of Addenda: 0 Note Initiated On: 02/26/2024 11:18 AM Scope Withdrawal Time: 0 hours 7 minutes 15 seconds Scope In: 11:34:19 AM Scope Out: 11:45:11 AM Endoscopy Department at [facility] - [address] [place] [phone] us Shlomo Cast DO GI~PROCEDURE ORDERABLES Final Re sult * DXA BONE DENSITY STUDY 1+ SITS [...] 10/15/2020. 3.9% loss of left hip bone mineral density which is statistically significant at the 95% confidence level. No statistically significant change in lumbar spine bone mineral density. IMPRESSION: IMPRESSION: Osteoporosis by WHO criteria. The [facility] Department of Internal Medicine recommends using National [...] alternative screening schedule based on rashad Boothe., [facility] May 12, 2011 for patients with [...] IMPRESSION: IMPRESSION: Osteoporosis by WHO criteria. The [facility] Department of Internal Medicine recommendsusing National Osteoporosis [...] BMD testingevery 15 years Mervat Cruz MD [facility] [place] PROCEDURES Final Result * Diabetes Foot Exam (02/11/2022) [facility] HM Diabetes: Annual Foot Exam Abstracted Historical Provider HEALTH MAINTENANCE Final Result * Urine Albumin Creatinine Ratio (10/12/2021) Pathologist [facility] Urine Albumin Creatinine Ratio Abstracted Historical Provider HEALTH MAINTENANCE Final Result * Hepatitis C Screening (12/18/2014) Pathologist [facility] Hepatitis C Screening Abstracted [facility] Provider HEALTH MAINTENANCE Final Result from Last 3 Months or Most Recently Relevant to Health Maintenance Insurance [employer] MEDICARE Member Subscriber Plan / Payer (Ef fective 2012-Present) Name:Laura Kidd Relation to Subscriber:Self Name:Laura Kidd Payer ID:[id number] Group ID:[id number] Type:Not on file Address: [place] [address] [address] [phone] Care Teams Furniture 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
[2024-12-12 13:44] VITALS: BP 136/64; PULSE 72; O2SAT 96; BMI 27.5
== END 2024-12-12 14:02 | disposition home or self-care (01) ==
LOC: HO.HKAS 13:29
PROVIDERS: PCP Internal Medicine; Visit Provider Internal Medicine Nephrology
DX: I15.0 Renovascular hypertension (principal); N18.31 Chronic kidney disease, stage 3a; E87.5 Hyperkalemia; N17.9 Acute kidney failure, unspecified
CPT/HCPCS: 99214

== ENCOUNTER → 2024-12-12 13:29 | Outpatient (BNVA) | payer OTHER, SELFPAY | PROVIDERS: PCP Internal Medicine; Visit Provider Internal Medicine Nephrology | DX: I15.0 Renovascular hypertension (principal); N18.31 Chronic kidney disease, stage 3a; N17.9 Acute kidney failure, unspecified; E87.5 Hyperkalemia | CPT/HCPCS: 99212 ==

== ENCOUNTER 2025-01-09 13:26 | Outpatient (AMB) | payer OTHER, SELFPAY ==
--- NOTE | 2025-01-09 13:37 | HO.NEPHOV ---
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 Her ACEI has been put on hold and has been started on K lowering medication since she had CLARENCE and hyperkalemia.. She has history of for diabetes mellitus and hypertension. She has history of carotid disease and recently had undergone carotid USS . Her blood sugar control is fair. She has not had any epistaxis, photosensitivity, skin rashes, pedal edema, excessive nonsteroidal anti-inflammatory medication intake, hematuria, renal stones, new bone or back pain. She avoids excessive nonsteroidal anti-inflammatory medications. She tries to hydrate herself well. She has no chest pain, shortness of breath, paroxysmal nocturnal dyspnea, orthopnea, history of hypercalcemia or dizziness. She has not had any nephrolithiasis since last office visit. She is tolerating Jardiance well. She claims to be compliant with her medications [facility] Medical History HLD (hyperlipidemia) HTN (hypertension) Diverticulitis Anxiety and depression Cervical spinal stenosis Tremor CKD (chronic kidney disease) Thyroid nodule MARGARITA positive Carotid stenosis History of COVID-19 Nephrolithiasis Polyneuropathy CAD (coronary artery disease) Diabetes Surgical History Status post cardiac catheterization History of back surgery Family History Father HTN (hypertension) Diabetes mellitus Heart disease Mother HTN (hypertension) Diabetes mellitus Kidney disease Social History Alcohol intake: current Alcohol intake frequency: former alcohol drinker Patient Tobacco Use Status: Former Tobacco user Review of Systems Const All systems reviewed & are unremarkable except as noted in HPI and below Physical Exam Vital Signs: Last Vital Signs Pulse 77 01/09/25 13:40 BP 130/60 01/09/25 13:40 Pulse Ox 96 01/09/25 13:40 Oxygen Delivery Method Room Air 01/09/25 13:40 BMI result Body Mass Index 27.2 Const General: comfortable and no acute distress Orientation/consciousness: patient oriented x3 HEENT Head: Yes normocephalic Mouth: Normal oral and palatal mucosa present Eyes EOM: EOMs intact bilaterally Neck Neck: Yes supple Resp Auscultation: clear to auscultation bilaterally Cardio Jugular venous distension: no JVD Rate: regular rate GI Palpation (GI): Soft to palpation Auscultation: normal bowel sounds General: Yes no CVA tenderness Back/Spine/Pelvis Back: no CVA tenderness Skin General skin exam: no rashes or lesions noted Neuro General: patient oriented x3 and moves all extremities Extrem General: Yes no pedal edema Assessment & Plan Assessment & Plan (1) HTN (hypertension): Code(s): I10 - Essential (primary) hypertension Category: Medical Qualifiers: Hypertension type: renovascular hypertension Qualified Code(s): I15.0 - Renovascular hypertension (2) CKD (chronic kidney disease) stage 3, GFR 30-59 ml/min: Code(s): N18.30 - Chronic kidney disease, stage 3 unspecified Category: Medical Qualifiers: Chronic kidney disease stage 3 subtype: stage 3a (GFR 45-59) Qualified Code(s): N18.31 - Chronic kidney disease, stage 3a Plan Margarita has longstanding hypertension and diabetes mellitus. Her blood sugar control is fair. She needs to maintain steady weight as well as good exercise. She is on Jardiance 25 mg daily. Her lisinopril has been put on hold due to CLARENCE and hyperkalemia. She is on K lowering medication. She has carotid disease which has been stable. She should maintain good hydration and avoid nonsteroidal anti-inflammatory medications if at all possible. F/U labs ordered. I have answered all questions. Orders: Orders Protein Creatinine Ratio, Ur 3 Months I15.0 - Renovascular hypertension, N18.31 - Chronic kidney disease, stage 3a Creatinine 3 Months I15.0 - Renovascular hypertension, N18.31 - Chronic kidney disease, stage 3a Blood Urea Nitrogen 3 Months I15.0 - Renovascular hypertension, N18.31 - Chronic kidney disease, stage 3a Electrolytes 3 Months I15.0 - Renovascular hypertension, N18.31 - Chronic kidney disease, stage 3a Coding Level of Care Code Est Pt Level 4 (41448) Diagnoses Renovascular hypertension I15.0 Hypertension type: renovascular hypertension Stage 3a chronic kidney disease N18.31 Chronic kidney disease stage 3 subtype: stage 3a (GFR 45-59)
[2025-01-09 13:40] VITALS: BP 130/60; PULSE 77; O2SAT 96; BMI 27.2
--- OUTSIDE RECORDS SUMMARY | 2025-01-09 15:27 | XMS_ITS | Clinical Summary ---
Author Organization [facility] Address [address] [place] [address] Phone Care Team Providers Care Competitive Intelligence Manager Name Role Phone Fernanda Robins MD Primary Care Provider [phone] Allergies Active Allergy Reactions Criticality Noted Date [...] MOUTH DAILY 90 tablet 3 024 Active blood sugar diagnostic (FreeStyle Lite [...] BY MOUTH EVERY DAY 90 tablet 3 Active blood-glucose meter kit Use daily or as directed for monitoring of diabetes 1 each 025 2025 Active freestyle 28 gauge lancets Check blood sugar 1 times a day or as directed 100 each 2025 Active pen needle, diabetic 32 gauge x 1/4 needle Use daily with insulin 100 each Active budesonide-formot Albert (SYMBICORT) 160-4.5 mcg/actuation inhaler Inhale 2 puffs by mouth 2 (two) times a day. Rinse mouth with water after use to reduce aftertaste and incidence of candidiasis. Do not swallow. 3 each 2025 Active ipratropium-albut Albert (DUONEB) 0.5-2.5 mg/3 mL nebulizer solutionIndicatio ns:Moderate persistent asthma, unspecified whether complicated Take 3 mL by nebulization every 6 (six) hours if needed for wheezing. 360 mL 2025 Active evolocumab (Repatha SureClick) 140 mg/mL pen injector injectionIndicati ons:Mixed hyperlipidemia Inject 1 mL (140 mg total) under the skin every 14 (fourteen) days. 2 mL 2025 Active fexofenadine (ROS) 180 mg tablet Take 1 tablet (180 mg total) by mouth 1 (one) time each day if needed (allerigeyocasta). 90 tablet 2025 Active Ubrelvy 100 mg tablet TAKE 1/2 [...] 130. Max dose 40 units 15 mL Active Jardiance 25 mg tablet Take 1 tablet (25 mg total) by mouth 1 (one) time each day. 90 tablet Active isosorbide mononitrate (IMDUR) 30 mg 24 hr tablet TAKE 2 TABLETS BY MOUTH DAILY 180 tablet 1 Active pen needle, diabetic 32 gauge x 1/4 needle 200 each 1 (one) time each day. 200 each 11 Active rosuvastatin (CRESTOR) 10 mg tablet Take 1 tablet (10 mg total) by mouth 1 (one) time each day. 30 each 025 2025 Active LORazepam (ATIVAN) 1 mg tablet Take 1 tablet (1 mg total) by mouth 1 (one) time each day for 28 days. Max Daily Amount: 1 mg 28 each 025 2024 Active sertraline (ZOLOFT) 25 mg tablet Take 1 tablet (25 mg total) by mouth 1 (one) time each day. 90 each 1 025 2025 Active meclizine (ANTIVERT) 12.5 mg tabletIndications :Dizziness Take 1 tablet (12.5 mg total) by mouth 3 (three) times a day if needed for dizziness. 30 tablet 025 2024 Active amLODIPine (NORVASC) 2.5 mg tablet TAKE 1 TABLET BY MOUTH DAILY 90 tablet 1 Active hydroCHLOROthiazi de 12.5 mg tablet TAKE 1 TABLET BY MOUTH DAILY 90 tablet 1 024 2024 Discontinued(D iscontinued by another clinician) meclizine (ANTIVERT) 12.5 mg tabletIndications :Dizziness Take 1 tablet (12.5 mg total) by mouth 3 (three) times a day if needed for dizziness. 30 tablet 025 2024 Discontinued(R eorder) sertraline (ZOLOFT) 25 mg tablet Take 1 tablet (25 mg total) by mouth 1 (one) time each day. 90 each 1 025 2024 Discontinued(R eorder) amLODIPine (NORVASC) 2.5 mg tablet TAKE 1 TABLET BY MOUTH DAILY 90 tablet 025 2024 Discontinued lisinopriL (PRINIVIL,ZESTRIL ) 10 mg tablet Take 1 tablet (10 mg total) by mouth 1 (one) time each day. 90 tablet 1 025 2024 Discontinued(D iscontinued by another clinician) LORazepam (ATIVAN) 1 mg tablet Take 1 tablet (1 mg total) by mouth 1 (one) time each day if needed for anxiety for up to 28 days. Ok to fill 05/29/24 Max Daily Amount: 1 mg 28 tablet 025 2024 Discontinued(T herapy completed) LORazepam (ATIVAN) 0.5 mg tablet Take 1 tablet (0.5 mg total) by mouth 1 (one) time each day for 28 days. Max Daily Amount: 0.5 mg 28 each 025 2024 Discontinued(R eorder) sodium zirconium cyclosilicate (LOKELMA) 10 gram packet [...] has been taken. 15 packet 025 2024 rosuvastatin (CRESTOR) 20 mg tablet Take 1 tablet (20 mg total) by mouth 1 (one) time each day. 90 each 3 025 2024 Discontinued LORazepam (ATIVAN) 0.5 mg tablet Take 1 tablet (0.5 mg total) by mouth 1 (one) time each day for 28 days. Max Daily Amount: 0.5 mg 28 each 025 2024 Discontinued(R eorder) Active Problems Problem [...] knees 01/11/2023 Urinary incontinence 01/11/2023 Kidney lesion, ione, right 05/20/2022 Chronic rhinitis 06/10/2021 CAD (coronary [...] (diabetes mellitus), type 2 with neurological complications ([facility] V24, [facility] V28) 10/07/2016 Elevated sed rate 10/23/2015 Lung nodules 10/23/2015 CKD (chronic kidney disease) stage 3, GFR 30-59 ml/min (CMS/[facility] V24, CMS/[facility] V28) 03/17/2015 Overview (01/18/2024): Dr [...] (diabetes mellitus), type 2 with renal complications ([facility] V24, [facility] V28) 04/14/2005 Encounters Date Type Department Care Team Description 01/06/2025 [facility] [address] [facility] [place], [place] [phone] Adonis WilkesahDO 01/03/2025 Telephone Gastroenterology - [place] [address] [facility] [address] [place] [phone] Tresa Douglas NP 2025 Telephone Internal Medicine - [address] [phone] Fernanda Robins MD 12/31/2024 8:30 AM EDT Consult Vascular Surgery - [place] [address] [place] [phone] Candi Carvajal MD Bilateral carotid artery stenosis 12/26/2024 12:59 PM EDT - 12/26/2024 11:59 PM EDT Hospital Encounter [facility] Bone Density [address] [place] [phone] Osteoporosis, unspecified osteoporosis type, unspecified pathological fracture presence Discharge Disposition: Home or Self Care 12/24/2024 9:15 AM EDT [facility] [address] [place], [place] [address], [place] [phone] Deya Henriquez NP Anxiety and depression (Primary Dx); Chronic nonintractable headache, unspecified headache type; Erythema of nasal skin 12/16/2024 12:40 PM EDT - 12/16/2024 11:59 PM EDT Hospital Encounter [facility]trasound - [facility] [address] [place] [address] Bilateral carotid bruits Discharge Disposition: Home or Self Care 12/10/2024 12:33 PM EDT - 12/10/2024 11:59 PM EDT Hospital Encounter CT Scan - [address] [phone] Lung nodules Discharge Disposition: Home or Self Care 12/09/2024 Telephone Internal Medicine - [address] [phone] Fernanda Robins MD 12/03/2024 2:30 PM EDT Lab Draw Station - [address] Stage 3 chronic kidney disease, unspecified whether stage 3a or 3b CKD ([facility] V24, [facility] V28); Osteoporosis, unspecified osteoporosis type, unspecified pathological fracture presence 12/03/2024 1:30 PM EDT Office Visit Internal Medicine - [address] [phone] Fernanda Robins MD Unilateral hearing loss (Primary Dx); Stage 3 chronic kidney disease, unspecified whether stage 3a or 3b CKD ([facility] V24, [facility] V28); Bilateral carotid bruits; Bilateral carotid artery stenosis; Mixed hyperlipidemia 12/03/2024 Telephone Adult Medicine [address] [phone] Efraín Rodriguez MD 11/13/2024 10:21 AM EDT - 11/13/2024 11:59 PM EDT Hospital Encounter [facility] Ultrasound [address] [place] [phone] Discharge Disposition: Home or Self Care 10/31/2024 2:00 PM EDT Office Visit Endocrinology [address] [phone] Sarah Cobian PA DM (diabetes mellitus), type 2 with neurological complications ([facility] V24, [facility] V28) (Primary Dx); Osteoporosis, unspecified osteoporosis type, unspecified pathological fracture presence; Thyroid nodule 10/31/[address] [phone] Sarah Cobian PA 10/29/2024 10:52 AM EDT - 10/29/2024 11:59 PM EDT Hospital Encounter Ultrasound - [address] [phone] Acute right flank pain Discharge Disposition: Home or Self Care 10/24/2024 11:05 AM EDT Lab Draw Station [address] DM (diabetes mellitus), type 2 with neurological complications ([facility] V24, [facility] V28); Acute right flank pain 10/24/2024 10:00 AM EDT Office Visit Internal Medicine [address] [phone] Fernanda Robins MD Acute right flank pain (Primary Dx); DM (diabetes mellitus), type 2 with neurological complications ([facility] V24, [facility] V28); Kidney lesion, ione, right; Anxiety and depression; Renal cyst 10/15/2024 4:45 PM EDT Office Visit Walk-In Clinic - [address] [phone] Lanette Wilson NP Excessive cerumen in right ear canal (Primary Dx) 10/14/2024 Telephone Internal Medicine [address] [phone] Fernanda Robins MD 10/11/2024 1:00 PM EDT Office Visit Internal Medicine [address] [phone] Deya Henriquez NP Anxiety and depression (Primary Dx); Encounter for long-term (current) use of high-risk medication; Screen for colon cancer; Dizziness; Right carpal tunnel syndrome; Radiculitis, lumbosacral; Radiculitis, cervical; Polyneuropathy; Chronic nonintractable headache, unspecified headache type; DM (diabetes mellitus), type 2 with neurological complications ([facility] V24, [facility] V28); Chronic pain of both knees; Moderate persistent asthma without complication; Lung nodules; Chronic rhinitis; Primary hypertension; Type 2 diabetes mellitus with stage 3b chronic kidney disease, without long-term current use of insulin ([facility] V24, [facility] V28); Osteoporosis, unspecified osteoporosis type, unspecified pathological fracture presence; Spinal stenosis in cervical region; Iron deficiency anemia, unspecified iron deficiency anemia type; Tremor; Vitamin B12 deficiency; Hyperlipidemia, unspecified hyperlipidemia type; Left upper quadrant pain 10/11/2024 Telephone [facility] [place] [phone] Fernanda Robins MD from Last 3 Months Immunizations Name Administration Dates Next Due Hepatitis B (Qhbokcn-X-Tonuh , Recombivax HB-Adult) 19yo and older 02/24/2009 [...] negative examination. UPPER GASTROINTESTINAL ENDOSCOPY 12/12/2016 PROCEDURE: [place] UPPER GI ENDOSCOPY PERFORMED; COMMENT: Visually normal; duodenal biopsies: normal. OTHER SURGICAL HISTORY 01/04/2017 PROCEDURE: OUTSIDE ENDOSCOPY; COMMENT: [place]; intestinal pillcam normal. Medical History Medical History Date Comments Essential hypertension, benign 03/06/2006 D X:Essential hypertension, benign Herpes zoster DX:Herpes zoster Type 2 diabetes mellitus wit h renal manifestations ([facility] V24, [facility] V28) 04/14/2005 DX:Type 2 diabetes mellitus with renal manifestations ([facility]) Tremor 01/20/2011 DX:Tremor Spinal stenosis [...] kidney disease) stage 3, GFR 30-59 ml/min ([facility] V24, [facility] V28) 03/17/2015 DX:CKD (chronic kidney disea se) stage 3, GFR 30-59 ml/min ([facility]) Unspecified asthma(493.90) 04/14/2005 DX:Un specified asthma(493.90) Anxiety and depression 01/22/2009 DX:Anxiet y and depression Diverticulitis large intestine 03/06/2006 D X:Diverticulitis large intestine; COMMENT: As of 2018; approx 4 uncomplicated attacks. DM (diabetes mellitus), type 2 with neurological complications (CMS/HCC V24, [facility] V28) 10/07/2016 DX:DM (diabetes mellitus), t ype 2 with neurological complications (HCC) Polyneuropathy 07/02/2020 DX:Polyneuropath y DM (diabetes mellitus), type 2 with renal complications (CMS/[facility] V24, [facility] V28) 04/14/2005 DX:DM (diabetes mellitus), [...] for your loved ones. For example, children's book author or elderly care for an older adult? [...] Sign Reading Time Taken Comments Blood Pressure 120/80 12/31/2024 8:39 AM EDT Pulse 72 12/31/2024 8:36 AM EDT Temperature 36.6 C (97.8 F) 12/24/2024 9:09 AM EDT Respiratory Rate 16 12/31/2024 8:36 AM EDT Oxygen Saturation 97% 07/23/2024 1:32 PM EDT Inhaled Oxygen Concentration - - Weight 68.5 kg (151 lb) 12/31/2024 8:36 AM EDT Height 160 cm (5' 3 ) 12/31/2024 8:36 AM EDT Body Mass Index 26.75 12/31/2024 8:36 AM EDT Plan of Treatment Upcoming Encounters Date Type Department Care Team (Late st Contact Info) Description 01/17/2025 2:40 PM EDT Office Visit [facility] [address] [place] [phone] Shobha Lam, KIRAN [address] [place] [address] [address] [place] [phone] 02/04/2025 1:00 PM EDT Office Visit Endocrinology [address] [phone] Sarah Cobian PA [address] [place] [address] 12/01/2025 12:00 PM EDT Ancillary Procedure [facility] Cardiology [facility] [address] [place] [phone] 01/02/2026 10:30 AM EDT Office Visit Vascular Surgery - [place] [address] [place] [phone] Jarrett Chinchilla MD [address] [place] [phone] Health Maintenance Due Date Last Done Comments [...] 04/02/2024, 10/30/2023 Falls Risk Assessment 07/25/2025 07/25/2024 Social Influencers of Health Screening 07/25/2025 07/25/2024 Diabetes: Annual GFR (Glomerular Filtration Rate) 12/30/2025 12/30/2024, 12/03/2024, 10/24/2024, Additional history exists Hypertension/CHF/CAD Annual BMP Blood Test 12/30/2025 12/30/2024, 12/03/2024, 10/24/2024, Additional history exists Cholesterol Screening (Lipid Panel) 10/24/2029 10/24/2024, 01/11/2023 DTaP,Tdap,and Td Vaccines (4 - Td or Tdap) 06/19/2030 06/19/2020, 01/10/2019, 07/16/2010 Osteoporosis Screening (Bone Density Screening) 12/26/2034 12/26/2024, 12/22/2022, 10/15/2020, Additional history exists Hepatitis C Screening Completed 12/18/2014 Pneumococcal Vaccine: 50+ Years Completed 01/09/2017, 02/03/2012 Influenza Vaccine Discontinued 02/11/2022, , 02/27/2020, Additional history exists Colorectal Cancer Screening: Colonoscopy Discontinued 02/26/2024 Depression Screening Completed 07/25/2024 Medicare Annual Wellness Visit Discontinued 07/25/2024 HIB Vaccines Aged Out No longer [...] Procedure Name Priority Date/Time Associated Diagnosis Comments ELECTROLYTE PANEL Routine 12/30/2024 1:3 0 PM EDT Acute kidney failure, unspecified (CMS/HCC V24) Secondary renovascular hypertension, malignant Chronic kidney disease (CKD) stage G3a/A1, moderately decreased glomerular filtration rate (GFR) between 45-59 mL/min/1.73 square meter and albuminuria creatinine ratio les* (CMS/HCC V24, CMS/HCC V28) Hyperpotassemia BUN Routine 12/30/2024 1:30 PM EDT Acute kidney failure, unspecified (CMS/HCC V24) Secondary renovascular hypertension, malignant Chronic kidney disease (CKD) stage G3a/A1, moderately decreased glomerular filtration rate (GFR) between 45-59 mL/min/1.73 square meter and albuminuria creatinine ratio les* (CMS/HCC V24, CMS/HCC V28) Hyperpotassemia CREATININE, SERUM Routine 12/30/2024 1:3 0 PM EDT Acute kidney failure, unspecified (CMS/HCC V24) Secondary renovascular hypertension, malignant Chronic kidney disease (CKD) stage G3a/A1, moderately decreased glomerular filtration rate (GFR) between 45-59 mL/min/1.73 square meter and albuminuria creatinine ratio les* (CMS/HCC V24, CMS/HCC V28) Hyperpotassemia BD BONE DENSITY DXA AXIAL SKELETON Routine 12/26/2024 2:40 PM EDT Osteoporosis, unspecified osteoporosis type, unspecified pathological fracture presence VAS US DUPLEX CAROTID BILATERAL Routine 12/16/2024 1:55 PM EDT Bilateral carotid bruits CT CHEST WO CONTRAST Routine 12/10/2024 12:43 [...] pain BENITEZ URINE CULTURE TUBE Routine 10/25/19 25 11:05 AM EDT Acute right flank pain [...] with neurological complications (CMS/HCC V24, CMS/HCC V28) [place] REMOVAL CERUMEN IMPACTED IRRIGATION/LAVAGE UNILATERAL Routine 10/15/2024 5:00 PM EDT Excessive cerumen in right ear canal DRUG ABUSE SCREEN EXPANDED WITH REFLEX CONFIRMATION, URINE Routine 10/11/2024 1:46 PM EDT Encounter for long-term (current) use of high-risk medication EXTERNAL DIABETIC RETINA EYE EXAM 06/25/2024 COLONOSCOPY Routine 02/26/2024 11:47 AM EST Diverticulitis of colon (without mention of hemorrhage)(562.11) DIABETES FOOT EXAM Routine 02/11/2022 URINE ALBUMIN CREATININE RATIO Routine 10/12/2021 HEPATITIS C SCREENING Routine 12/18/2014 from Last 3 Months or Most Recently Relevant to Health Maintenance Results * (ABNORMAL) Creatinine (12/30/2024 1:30 PM EDT) Creatinine 1.26(H) 0.50 - 1.10 mg/dL LAB CHEMISTRY METHOD 12/30/2024 6:44 PM EDT [facility] eGFR 44(L) >=60 mL/min/1. 73m2 LAB CHEMISTRY METHOD 12/30/2024 6:44 PM EDT [facility] Comment:Calculation based on the Chronic Kidney Disease Epidemiology Collaboration (CKD-EPI) equation refit without adjustment for race. Blood Venous blood specimen / Unknown Venipuncture / Unknown 12/30/2024 1:30 PM EDT 12/30/2024 1:30 PM EDT us Long Metz MD LAB BLOOD ORDERABLES Final Resul t [facility] [address] [place] [address], * (ABNORMAL) BUN (12/30/2024 1:30 PM EDT) BUN 28(H) 5 - 25 mg/dL LAB CHEMISTRY METHOD 12/30/2024 6:44 PM EDT [facility] Blood Venous blood specimen / Unknown Venipuncture / Unknown 12/30/2024 1:30 PM EDT 12/30/2024 1:30 PM EDT Long Metz MD LAB BLOOD ORDERABLES Final Resul t Performing Organization Address [facility] de Phone Number [facility] [address] [place] [address], [place] [phone] * Electrolyte panel (12/30/2024 1:30 PM EDT) Sodium 138 133 - 145 mmol/L LAB CHEMISTRY METHOD 12/30/2024 6:48 PM EDT [facility] Potassium 4.5 3.5 - 5.5 mmol/L LAB CHEMISTRY METHOD 12/30/2024 6:48 PM EDT [facility] Chloride 108 96 - 110 mmol/L LAB CHEMISTRY METHOD 12/30/2024 6:48 PM EDT [facility] CO2 26 21 - 32 mmol/L LAB CHEMISTRY METHOD 12/30/2024 6:48 PM EDT [facility] Anion Gap 4 3 - 11 LAB CHEMISTRY METHOD 12/30/2024 6:48 PM EDT [facility] Blood Venous blood specimen / Unknown Venipuncture / Unknown 12/30/2024 1:30 PM EDT 12/30/2024 1:30 PM EDT Long Metz MD LAB BLOOD ORDERABLES Final Resul t Performing Organization Address [facility] de Phone Number [facility] [address] [place] [address], [place] [phone] * BD Bone Density DXA Axial Skeleton (12/26/2024 2:40 PM EDT) Anatomical Region Laterality Modality Wrist, Hip, L-spine Bone Densito metry 12/27/2024 8:02 AM EDT Impressions 12/27/2024 8:03 AM EDT 1. Osteoporosis. 2. FRAX analysis yields a 10-year probability of major osteoporotic fracture of 8.3% and a 10-year probability of hip fracture of 2.1%. Code 29259 -------- FINAL REPORT -------- Dictated By: Shawn Gutierrez Dictated Date: 12/27/2024 08:02 ET Assigned Physician: Shawn Gutierrez Reviewed and Electronically Signed By: Shawn Gutierrez Signed Date: 12/27/2024 08:03 ET Workstation ID: [id number] Transcribed By: Self Edit Transcribed Date: 12/27/2024 08:02 ET Narrative 12/27/2024 8:03 AM EDT HISTORY: The patient is a 79-year-old postmenopausal female with clinical concern for metabolic bone disease. FINDINGS: Dual energy x-ray absorptiometry of the lumbar spine and femurs is performed. The mean bone mineral density at L1-2 is 1.060 gm/cm2 which is 91% of that of young normals and 110% of that of age matched controls. This yields a T-score of -0.9 and a Z-score of 0.8 and there is therefore no evidence of osteoporosis or osteopenia here. The mean bone mineral density of the femurs bilaterally is 0.904 gm/cm2 which is 90% of that of young normals and 116% of that of age matched controls. This yields a T-score of -0.8 and a Z-score of 1.0 and there is therefore no evidence of osteoporosis or osteopenia here. However, the T-score of the left femoral neck is -2.6 which is diagnostic of osteoporosis. Procedure Note Shawn Gutierrez MD - 12/27/2024 HISTORY: The patient is a 79-year-old postmenopausal female with clinicalconcern for metabolic bone disease. FINDINGS: Dual energy x-ray absorptiometry of the lumbar spine and femursis performed. The mean bone mineral density at L1-2 is 1.060 gm/cm2 whichis 91% of that of young normals and 110% of that of age matched controls.This yields a T-score of -0.9 and a Z-score of 0.8 and there is thereforeno evidence of osteoporosis or osteopenia here. The mean bone mineral density of the femurs bilaterally is 0.904 gm/ks0oymqs is 90% of that of young normals and 116% of that of age matchedcontrols. This yields a T-score of -0.8 and a Z-score of 1.0 and there istherefore no evidence of osteoporosis or osteopenia here. However, theT-score of the left femoral neck is -2.6 which is diagnostic ofosteoporosis. IMPRESSION: 1. Osteoporosis. 2. FRAX analysis yields a 10-year probability of major osteoporoticfracture of 8.3% and a 10-year probability of hip fracture of 2.1%. Code 52772 -------- FINAL REPORT -------- Dictated By: Shawn Gutierrez Dictated Date: 12/27/2024 08:02 ET Assigned Physician: Shawn Gutierrez Reviewed and Electronically Signed By: Shawn Gutierrez Signed Date: 12/27/2024 08:03 ET Workstation ID: [id number] Transcribed By: Self Edit Transcribed Date: 12/27/2024 08:02 ET us Sarah ROTHMAN IMG DXA PROCEDURES Final Re sult * Vascular US duplex carotid bilateral (12/16/2024 1:55 PM EDT) Anatomical Region Laterality Modality Vascular, Abdomen Ultrasound 12/16/2024 4:28 PM EDT Impressions 12/16/2024 4:47 PM EDT Bilateral atherosclerotic plaquing with bilateral increasing velocities from progressive moderate ICA stenoses of 50-69%. Progressive bilateral ECA stenoses. Patent vertebral arteries. POS - [id number] -------- FINAL REPORT -------- Dictated By: Ailyn Lee Dictated Date: 12/16/2024 16:28 ET Assigned Physician: Ailyn Lee Reviewed and Electronically Signed By: Ailyn Lee Signed Date: 12/16/2024 16:47 ET Workstation ID: [id number] Transcribed By: Self Edit Transcribed Date: 12/16/2024 16:28 ET Narrative 12/16/2024 4:47 PM EDT EXAM: Ultrasound extracranial arteries. HISTORY: Dizziness. Carotid bruit. COMPARISON: 02/28/2020 CAROTID ULTRASOUND FINDINGS: RIGHT: Peak external carotid artery: 220 cm/sec Peak vertebral: 73 cm/sec and antegrade Carotid artery morphology: No significant interval change in a moderate degree of mixed plaque in the bulb extending into the proximal ICA and ECA. Degree of luminal narrowing is approximately 50%. Intimal thickening and mild atherosclerotic plaquing in the CCA. Peak systolic and diastolic velocity common carotid artery: 108/17 cm/sec Peak systolic and diastolic velocity internal carotid artery: 170/30 cm/sec compared with 140/30 cm/s previously Normal ICA/CCA peak systolic ratio. LEFT: Peak external carotid artery: 284 cm/sec Peak vertebral: 62 cm/sec and antegrade Carotid artery morphology: No significant interval change in moderate to large degree of mixed plaque in the bulb and proximal ICA and ECA. Some of the plaque causes shadowing and limits assessment of color Doppler flow. Mild atherosclerotic plaquing in the mid ICA Peak systolic and diastolic velocity common carotid artery: 127/24 cm/sec Peak systolic and diastolic velocity internal carotid artery: 171/32 cm/sec compared with 129/36 cm/s previously Normal ICA/CCA peak systolic ratio. Any stenosis measurement is relative to the distal ICA diameters. Procedure Note Ailyn Lee MD - 12/16/2024 EXAM: Ultrasound extracranial arteries. HISTORY: Dizziness. Carotid bruit. COMPARISON: 02/28/2020 CAROTID ULTRASOUND FINDINGS: RIGHT: Peak external carotid artery: 220 cm/sec Peak vertebral: 73 cm/sec and antegrade Carotid artery morphology: No significant interval change in a moderatedegree of mixed plaque in the bulb extending into the proximal ICA andECA. Degree of luminal narrowing is approximately 50%. Intimal thickeningand mild atherosclerotic plaquing in the CCA. Peak systolic and diastolic velocity common carotid artery: 108/17cm/sec Peak systolic and diastolic velocity internal carotid artery: 170/30cm/sec compared with 140/30 cm/s previously Normal ICA/CCA peak systolic ratio. LEFT: Peak external carotid artery: 284 cm/sec Peak vertebral: 62 cm/sec and antegrade Carotid artery morphology: No significant interval change in moderate tolarge degree of mixed plaque in the bulb and proximal ICA and ECA. Some ofthe plaque causes shadowing and limits assessment of color Doppler flow.Mild atherosclerotic plaquing in the mid ICA Peak systolic and diastolic velocity common carotid artery: 127/24cm/sec Peak systolic and diastolic velocity internal carotid artery: 171/32cm/sec compared with 129/36 cm/s previously Normal ICA/CCA peak systolic ratio. Any stenosis measurement is relative to the distal ICA diameters. IMPRESSION: Bilateral atherosclerotic plaquing with bilateral increasing velocitiesfrom progressive moderate ICA stenoses of 50-69%. Progressive bilateral ECA stenoses. Patent vertebral arteries. POS - [id number] -------- FINAL REPORT -------- Dictated By: Ailyn Lee Dictated Date: 12/16/2024 16:28 ET Assigned Physician: Ailyn Lee Reviewed and Electronically Signed By: Ailyn Lee Signed Date: 12/16/2024 16:47 ET Workstation ID: [id number] Transcribed By: Self Edit Transcribed Date: 12/16/2024 16:28 ET us Fernanda Robins MD CV VASCULAR PROCEDURES Final R esult * CT Chest wo Contrast (12/10/2024 12:43 PM EDT) Anatomical Region Laterality Modality Body Computed Tomogra phy 12/10/2024 11:4 9 PM EDT Impressions 12/11/2024 9:21 AM EDT Bilateral pulmonary nodules are stable as far back as 06/22/2016. No new nodule detected. POS - [id number] -------- FINAL REPORT -------- Dictated By: Ailyn Lee Dictated Date: 12/10/2024 23:49 ET Assigned Physician: Ailyn Lee Reviewed and Electronically Signed By: Ailyn Lee Signed Date: 12/11/2024 09:21 ET Workstation ID: [id number] Transcribed By: Self Edit Transcribed Date: 12/11/2024 [...] as 06/22/2016. No newnodule detected. POS - [id number] -------- FINAL REPORT -------- Dictated By: Ailyn Lee Dictated Date: 12/10/2024 23:49 ET Assigned Physician: Ailyn Lee Reviewed and Electronically Signed By: Ailyn Lee Signed Date: 12/11/2024 09:21 ET Workstation ID: [id number] Transcribed By: Self Edit Transcribed Date: 12/11/2024 00:13 ET Deya Wooten RAISIN WASHER IMG CT PROCEDURES Final Resu lt * (ABNORMAL) Hemoglobin A1c (12/03/2024 2:39 PM EDT) [facility] Hemoglobin A1C 8.4(H) <6.5 % LAB CHEMISTRY METHOD 12/04/2024 12:02 PM EDT [facility] Mean Bld Glu Estim. 194 mg/dL LAB CHEMISTRY METHOD 12/04/2024 12:02 PM EDT [facility] Blood Venous blood specimen / Unknown Venipuncture / Unknown 12/03/2024 2:39 PM EDT 12/03/2024 2:39 PM EDT Sarah ROTHMAN LAB BLOOD ORDERABLES Final Result [facility] [address] [place] [address], [place] [phone] * (ABNORMAL) Basic metabolic panel (12/03/2024 2:39 PM EDT) Sodium 137 133 - 145 mmol/L LAB CHEMISTRY METHOD 12/03/2024 7:07 PM [facility] Potassium 6.4(HH) 3.5 - 5.5 mmol/L LAB CHEMISTRY METHOD 12/03/2024 7:07 PM [facility] Chloride 110 96 - 110 mmol/L LAB CHEMISTRY METHOD 12/03/2024 7:07 PM [facility] CO2 24 21 - 32 mmol/L LAB CHEMISTRY METHOD 12/03/2024 7:07 PM [facility] Anion Gap 3 3 - 11 LAB CHEMISTRY METHOD 12/03/2024 7:07 PM [facility] Glucose 91 70 - 100 mg/dL LAB CHEMISTRY METHOD 12/03/2024 7:07 PM [facility] BUN 34(H) 5 - 25 mg/dL LAB CHEMISTRY METHOD 12/03/2024 7:07 PM [facility] Creatinine 1.45(H) 0.50 - 1.10 mg/dL LAB CHEMISTRY METHOD 12/03/2024 7:07 PM [facility] eGFR 37(L) >=60 mL/min/1. 73m2 LAB CHEMISTRY METHOD 12/03/2024 7:07 PM [facility] Comment:Calculation based on the Chronic Kidney Disease Epidemiology Collaboration (CKD-EPI) equation refit without adjustment for race. BUN/Creatinine Ratio 23.4 LAB CHEMISTRY METHOD 12/03/2024 7:07 PM [facility] Calcium 8.6 8.5 - 10.5 mg/dL LAB CHEMISTRY METHOD 12/03/2024 7:07 PM [facility] Blood Venous blood specimen / Unknown Venipuncture / Unknown 12/03/2024 2:39 PM EDT 12/03/2024 2:39 PM EDT us Fernanda Robins MD LAB BLOOD ORDERABLES Final Res ult [facility] [address] [place] [address], * US Head Neck Soft Tissue (11/13/2024 [...] 2 nodule at the upper pole. Code 51503 TI-RADS Category 1: 0 pts; benign; no [...] Signed Date: 11/13/2024 11:44 ET Workstation ID: [id number] Transcribed By: Self Edit Transcribed Date: 11/13/2024 [...] TI-RADS 2 nodule at theupper pole. Code 45155 TI-RADS Category 1: 0 pts; benign; no [...] Signed Date: 11/13/2024 11:44 ET Workstation ID: [id number] Transcribed By: Self Edit Transcribed Date: 11/13/2024 [...] Signed Date: 10/29/2024 11:55 ET Workstation ID: [id number] Transcribed By: Self Edit Transcribed Date: 10/29/2024 [...] Signed Date: 10/29/2024 11:55 ET Workstation ID: [id number] Transcribed By: Self Edit Transcribed Date: 10/29/2024 11:51 ET us Fernanda Robins MD [facility] PROCEDURES Final Result * (ABNORMAL) Urinalysis with reflex microscopic and culture (10/24/2024 11:05 AM EDT) Specific [place] Urine 1.022 1.003 - 1.030 LAB URINALYSIS - AUTOMATED METHOD 10/24/2024 2:18 PM [facility] pH, Urine 5.0 5.0 - 8.0 pH LAB URINALYSIS - AUTOMATED METHOD 10/24/2024 2:18 PM [facility] Leukocytes, Urine Negative Negative LAB URINALYSIS - AUTOMATED METHOD 10/24/2024 2:18 PM [facility] Nitrite, Urine Negative Negative LAB URINALYSIS - AUTOMATED METHOD 10/24/2024 2:18 PM [facility] Protein, Urine Negative <=Trace mg/dL LAB URINALYSIS - AUTOMATED METHOD 10/24/2024 2:18 PM [facility] Glucose, Urine >=1000(A) Negative mg/dL LAB URINALYSIS - AUTOMATED METHOD 10/24/2024 2:18 PM [facility] Ketones, Urine Negative Negative mg/dL LAB URINALYSIS - AUTOMATED METHOD 10/24/2024 2:18 PM [facility] Urobilinogen , Urine 0.2 0.2 - 1.0 mg/dL LAB URINALYSIS - AUTOMATED METHOD 10/24/2024 2:18 PM EDT [facility] Bilirubin, Urine Negative Negative LAB URINALYSIS - AUTOMATED METHOD 10/24/2024 2:18 PM EDT [facility] Blood, Urine Negative Negative LAB URINALYSIS - AUTOMATED METHOD 10/24/2024 2:18 PM EDT [facility] Urine Urine specimen obtained by clean catch procedure / Unknown Non-blood Collection / Unknown 10/24/2024 11:05 AM EDT 10/24/2024 11:05 AM EDT Fernanda Robins MD LAB URINE ORDERABLES Final Res ult Performing Organization Address [facility]/ZIP Co de Phone Number [facility] [address] [place] [address], [place] [phone] * Benitez urine culture tube (10/24/2024 11:05 AM EDT) Extra Tube Hold for add-ons. 10/24/2024 2:01 PM EDT [facility] Comment:Auto resulted. Urine Urine specimen obtained by clean catch procedure / Unknown Non-blood Collection / Unknown 10/24/2024 11:05 AM EDT 10/24/2024 11:05 AM EDT Fernanda Robins MD LAB URINE ORDERABLES Final Res ult Performing Organization Address City/[facility]/ZIP Co de Phone Number [facility] [address] [place] [address], [place] [phone] * (ABNORMAL) Lipid panel with reflex to direct LDL (10/24/2024 11:05 AM EDT) Cholesterol 239(H) 0 - 200 mg/dL LAB CHEMISTRY METHOD 10/24/2024 2:59 PM EDT [facility] Triglycerides 240(H) 0 - 150 mg/dL LAB CHEMISTRY METHOD 10/24/2024 2:59 PM EDT [facility] HDL 42 >=40 mg/dL LAB CHEMISTRY METHOD 10/24/2024 2:59 PM EDT [facility] LDL Calculated 149(H) 0 - 100 mg/dL LAB CHEMISTRY METHOD 10/24/2024 2:59 PM EDT [facility] VLDL Cholesterol Valdez 48 mg/dL LAB CHEMISTRY METHOD 10/24/2024 2:59 PM EDT [facility] Non HDL Chol. (LDL+VLDL) 197(H) <145 mg/dL LAB CHEMISTRY METHOD 10/24/2024 2:59 PM EDT [facility] Chol/HDL Ratio 5.7(H) 0.0 - 4.4 LAB CHEMISTRY METHOD 10/24/2024 2:59 PM EDT [facility] Blood Venous blood specimen / Unknown Venipuncture / Unknown 10/24/2024 11:05 AM EDT 10/24/2024 11:05 AM EDT us Fernanda Robins MD LAB BLOOD ORDERABLES Final Res ult [facility] [address] [place] [address], [place] [phone] * (ABNORMAL) Comprehensive metabolic panel (10/24/2024 11:05 AM EDT) Sodium 141 133 - 145 mmol/L LAB CHEMISTRY METHOD 10/24/2024 2:59 PM EDT [facility] Potassium 5.4 3.5 - 5.5 mmol/L LAB CHEMISTRY METHOD 10/24/2024 2:59 PM EDT [facility] Chloride 110 96 - 110 mmol/L LAB CHEMISTRY METHOD 10/24/2024 2:59 PM EDT [facility] CO2 25 21 - 32 mmol/L LAB CHEMISTRY METHOD 10/24/2024 2:59 PM [facility] Anion Gap 6 3 - 11 LAB CHEMISTRY METHOD 10/24/2024 2:59 PM [facility] Glucose 98 70 - 100 mg/dL LAB CHEMISTRY METHOD 10/24/2024 2:59 PM [facility] BUN 41(H) 5 - 25 mg/dL LAB CHEMISTRY METHOD 10/24/2024 2:59 PM [facility] Creatinine 1.82(H) 0.50 - 1.10 mg/dL LAB CHEMISTRY METHOD 10/24/2024 2:59 PM [facility] eGFR 28(L) >=60 mL/min/1. 73m2 LAB CHEMISTRY METHOD 10/24/2024 2:59 PM [facility] Comment:Calculation based on the Chronic Kidney Disease Epidemiology Collaboration (CKD-EPI) equation refit without adjustment for race. BUN/Creatinine Ratio 22.5 LAB CHEMISTRY METHOD 10/24/2024 2:59 PM [facility] Calcium 8.9 8.5 - 10.5 mg/dL LAB CHEMISTRY METHOD 10/24/2024 2:59 PM [facility] AST (SGOT) 15 10 - 42 unit/L LAB CHEMISTRY METHOD 10/24/2024 2:59 PM [facility] ALT (SGPT) 26 10 - 60 unit/L LAB CHEMISTRY METHOD 10/24/2024 2:59 PM [facility] Alkaline Phosphatase 98 42 - 121 unit/L LAB CHEMISTRY METHOD 10/24/2024 2:59 PM [facility] Total Protein 7.7 6.0 - 8.0 g/dL LAB CHEMISTRY METHOD 10/24/2024 2:59 PM [facility] Albumin 3.9 3.2 - 5.0 g/dL LAB CHEMISTRY METHOD 10/24/2024 2:59 PM [facility] Total Bilirubin 0.2 0.0 - 1.4 mg/dL LAB CHEMISTRY METHOD 10/24/2024 2:59 PM EDT [facility] Blood Venous blood specimen / Unknown Venipuncture / Unknown 10/24/2024 11:05 AM EDT 10/24/2024 11:05 AM EDT us Fernanda Robins MD LAB BLOOD ORDERABLES Final Res ult [facility] [address] [place] [address], [place] [phone] * [place] REMOVAL CERUMEN IMPACTED IRRIGATION/LAVAGE UNILATERAL (10/15/2024 5:00 [...] of procedure: Tolerated well, no immediate complications Lanette Wilson NP IN CLINIC/BEDSIDE ORDERABLES F inal Result * Drug abuse screen expanded with reflex confirmation, urine (10/11/2024 1:46 PM EDT) Amphetamine Screen, Ur Negative Negative LAB CHEMISTRY METHOD 10/11/2024 5:02 PM EDT [facility] Comment:Certain OTC medicati ons containing ephedrine, phenylephrine, pseudoephedrine and phenylpropanolamine can cause false positive results. Barbiturate Screen, Ur Negative Negative LAB CHEMISTRY METHOD 10/11/2024 5:02 PM EDT [facility] Benzodiazepine Screen, Ur Negative Negative LAB CHEMISTRY METHOD 10/11/2024 5:02 PM EDT [facility] Cocaine Screen, Ur Negative Negative LAB CHEMISTRY METHOD 10/11/2024 5:02 PM EDT [facility] Opiate Screen, Ur Negative Negative LAB CHEMISTRY METHOD 10/11/2024 5:02 PM EDT [facility] Cannabinoid (THC) Screen, Ur Negative Negative LAB CHEMISTRY METHOD 10/11/2024 5:02 PM EDT [facility] Comment:Specimens from patie nts taking pantoprazole sodium (Protonix) have been shown to produce false positive results. Fentanyl, Ur Negative Negative LAB CHEMISTRY METHOD 10/11/2024 5:02 PM EDT [facility] Oxycodone Screen, Ur Negative Negative LAB CHEMISTRY METHOD 10/11/2024 5:02 PM EDT [facility] Urine Urine specimen obtained by clean catch procedure / Unknown Non-blood Collection / Unknown 10/11/2024 1:46 PM EDT 10/11/2024 1:46 PM EDT Narrative [facility] - 10/11/2024 5:02 PM EDT Assay [...] NP LAB URINE ORDERABLES Final R esult [facility]) [facility] [address] [place] [address], * External Diabetic Retina Eye Exam Report (06/25/2024) Anatomical Region Laterality Modality Ultrasound Provider [facility] US PROCEDURES Final Result * COLONOSCOPY Anesthesia - MAC; [facility] ENDOSCOPY (02/26/2024 11:47 AM EST) Anatomical Region Laterality Modality Endoscopy 02/26/2024 11:1 8 AM EST Narrative 02/26/2024 11:47 AM EST [facility] GI Patient Name: Laura Kidd Procedure Date: 02/26/2024 11:18 AM Date of : 1945 Age: 79 Room: ROOM 16 Gender: Female Note Status: Finalized Attending MD: Shlomo Cast DO, [id number] Procedure Date No Time: 02/26/2024 Procedure: Colonoscopy [...] the physician, the nurse, the anesthesiologist, the topper press operator automatic and the blood bank technician in the pre-procedure area in the [...] pathology results. Procedure Code(s): --- Professional --- 03318, Colonoscopy, flexible; with removal of tumor(s), polyp(s), or other lesion(s) by snare technique Diagnosis Code(s): --- Professional --- K64.9, Unspecified hemorrhoids Z12.11, Encounter for screening for malignant neoplasm of colon D12.5, Benign neoplasm of sigmoid colon CPT copyright 2020 [employer]. All rights reserved. The codes documented in this report are preliminary and upon dermatologist review may be revised to meet current compliance requirements. SHLOMO CAST Shlomo Cast DO 02/26/2024 11:47:38 AM This report has been signed electronically.Shlomo Cast DO Number of Addenda: 0 Note Initiated On: 02/26/2024 11:18 AM Scope Withdrawal Time: 0 hours 7 minutes 15 seconds Scope In: 11:34:19 AM Scope Out: 11:45:11 AM Endoscopy Department at [address] [phone] Procedure Note Shlomo Cast DO - 02/26/2024 [facility] GI Patient Name: Laura Kidd Procedure Date: 02/26/2024 11:18 AM Date of : 1945 Age: 79 Room: ROOM 16 Gender: Female Note Status: Finalized Attending MD: Shlomo Cast DO,[id number] Procedure Date No Time: 02/26/2024 Procedure: Colonoscopy [...] the physician, the nurse, the anesthesiologist, the topper press operator automatic and thetechnician in the pre-procedure area in [...] pathology results. Procedure Code(s): --- Professional --- 21738, Colonoscopy, flexible; with removal of tumor(s), polyp(s), or other lesion(s) by snare technique Diagnosis Code(s): --- Professional --- K64.9, Unspecified hemorrhoids Z12.11, Encounter for screening for malignantneoplasm of colon D12.5, Benign neoplasm of sigmoid colon CPT copyright 2020 [employer]. All rights reserved. The codes documented in this report are preliminary and upon dermatologist reviewmay be revised to meet current compliance requirements. SHLOMO CAST Shlomo Cast DO 02/26/2024 11:47:38 AM This report has been signed electronically.Shlomo Cast DO Number of Addenda: 0 Note Initiated On: 02/26/2024 11:18 AM Scope Withdrawal Time: 0 hours 7 minutes 15 seconds Scope In: 11:34:19 AM Scope Out: 11:45:11 AM Endoscopy Department at [address] [phone] Result [facility] Shlomo Cast DO GI~PROCEDURE ORDERABLES Final Re sult * Diabetes Foot Exam (02/11/2022) Pathologist [facility] Diabetes: Annual Foot Exam Abstracted Result [facility] Historical Provider HEALTH MAINTENANCE Final Result * Urine Albumin Creatinine Ratio (10/12/2021) [facility] Urine Albumin Creatinine Ratio Abstracted Historical Provider HEALTH MAINTENANCE Final Result * Hepatitis C Screening (12/18/2014) [facility] Hepatitis C Screening Abstracted Result [facility] Historical Provider HEALTH MAINTENANCE Final Result from Last 3 Months or Most Recently Relevant to Health Maintenance Insurance [id number] [place] [address] [facility] Member Subscriber Plan / Payer (Ef fective 2012-Present) Name:Laura Kidd Relation to Subscriber:Self Name:Laura Kidd Payer ID:[id number] Group ID:[id number] Type:Not on file Address: [place] [address] [address] Care Teams Competitive Intelligence Manager Relationship Specialty Start Date End Date Fernanda Robins MD [address] [facility] [place] [address] PCP - General Internal Medicine 08/22/24
--- OUTSIDE RECORDS SUMMARY | 2025-01-09 15:27 | XMS_ITS | Clinical Summary ---
Author Organization [facility], Address [address] [place] [address] [place] [address] Phone Care Team Providers Care Melt Room Operator Name Role Phone Kira King MD Primary Care Provider [phone] Allergies Active Allergy Reactions Criticality Noted Date [...] every 4 (four) hours if needed Active [place]-3 1000 MG capsule Take by mouth Active [...] 3 Active Cholecalciferol (Vitamin D3) 1.25 MG (71473 UT) capsule Take 1 capsule by mouth [...] PM EDT) Hemoglobin A1C 6.9(H) (4.0-5.6) % [facility] Comment: MONITORING: In known diabetic patients, hemoglobin A1c targets should be discussed with health care provider. DIAGNOSTIC USE: The [place] [employer] (ADA) and the World Health [...] Supplement 1 Testing performed or reported by [facility], a Service of [facility], [address] [place] [id number] Gail Forbes MD, Automation Software Engineer Blood specimen (specimen) Venous blood / Unknown 07/21/2020 2:21 PM EDT 07/21/2020 2:24 PM EDT us Sabra ROTHMAN LAB BLOOD ORDERABLES Final Res ult [facility] from Last 3 Months or Most Recently Relevant to Health Maintenance [place] [address] Dual SNP ([id number]) Care Teams Melt Room Operator Relationship Specialty Start Date End Date Kira King MD [address] [place] [address] PCP - General Internal Medicine 06/25/20
--- OUTSIDE RECORDS SUMMARY | 2025-01-09 15:27 | XMS_ITS | Encounter Summary ---
Author Organization [facility] Address [address] [place] [address] Care Team Providers Care Tipple Engineer Name Role Phone Fernanda Robins MD Primary Care Provider [phone] Reason for Visit * Reason Onset Date Comments Vaginitis/Bacterial Vaginosis 01/06/2025 Encounter Details Date Type Department Care Team (Late st Contact Info) Description 01/06/2025 Telephone Obstetrics [facility]necology [facility] [place] [address] [place], [place] [phone] Marisela Wilkes DO [address] [place], [place] Social History Tobacco Use Types Packs/Day Years [...] Orientation Straight 11/01/2024 4: 06 PM EDT documented as of this encounter Progress Notes * Micheline Ferguson RN - 01/06/2025 11:28 AM EDT Pt is calling back, she is reporting vaginal irritation/burning and itch for about 2 week, denies UTI sx, was using the terconazole cream from previous visit, not getting better, no soon appointment available, discussed conventional approach that may help, and advised pt to [facility] or [facility] Recommendations Pat dry rather than rubbing with a towel. Or, use a hair or beauty salon assistant on a cool setting to dry the vulva. Baking Soda soaks. Soak in lukewarm (not hot) bath water with 4-5 tablespoons of baking soda to help soothe vulvar itching and burning. Soak 1 to 3 times a day for 10 minutes. If you are using a sitzbath, use 1 to 2 teaspoons of baking soda. Baking soda soaks or rinsing with warm water will help rinse away extra discharge and help with odor. Do not use feminine hygiene sprays, perfumes, adult, or baby wipes. Pat dry rather than wiping Do not use sops-sqg-jgnskol creams or ointments until you ask your health care provider. When buying ointments, be sure that they are paraben and fragrance-free. Small amounts of coconut oil, extra virgin olive oil, vegetable oil, zinc oxide ointment, or plain Vaseline may be applied to your vulva as often as needed to protect the skin. It also helps to decrease skin irritation during your period and when you urinate. Do not scrub vulvar skin with a washcloth, washing with your hand and warm water is enough for goodcleaning. All questions have been addressed during this call * Micheline Ferguson RN - 01/06/2025 10:01 AM EDT VM left for patient to call the office back * Cristel Bingham - 01/06/2025 9:07 AM EDT Chief Complaint/problem: patient would like to speak to nurse regarding vaginal itching - states she has a cream but it not helping - please call How long has the patient had this problem? - Pt???s PLASTIC AND RECONSTRUCTIVE SURGEON provider: Marisela Wilkes DO Last menstrual period (LMP) or EDC (due date): - documented in this encounter Plan of Treatment Upcoming Encounters Date Type Department Care Team (Late st Contact Info) Description 01/17/2025 2:40 PM EDT Office Visit [facility] Cardiology [facility] [address] [place] [phone] Shobha Lam NP [address] [place] [address] [address] [place] [phone] 02/04/2025 1:00 PM EDT Office Visit Endocrinology [address] [place] [address] Sarah Cobian PA [address] [place] [address] 12/01/2025 12:00 PM EDT Ancillary Procedure [facility] [address] [facility] [address] [place] [address] 01/02/2026 10:30 AM EDT Office Visit Vascular Surgery - [place] [address] [facility] [address] [place] [address] Jarrett Chinchilla MD [address] [place] [phone] documented as of this encounter Visit Diagnoses Not on filedocumented in this encounter Additional Health Concerns Assessment Noted Time PHQ-9 Depression Total Score: 1 07/26/19 2:23 PM EDT documented as of this encounter Care Teams Tipple Engineer Relationship Specialty Start Date End Date Fernanda Robins MD [address] [place] [address] PCP - General Internal Medicine 08/22/24 documented as of this encounter
== END 2025-01-09 14:21 | disposition home or self-care (01) ==
LOC: HO.HKAS 13:26
PROVIDERS: PCP Internal Medicine; Visit Provider Internal Medicine Nephrology
DX: I12.9 Hypertensive chronic kidney disease with stage 1 through stage 4 chronic kidney disease, or unspecified chronic kidney disease (principal); E11.22 Type 2 diabetes mellitus with diabetic chronic kidney disease; N18.31 Chronic kidney disease, stage 3a
CPT/HCPCS: 99214

== ENCOUNTER → 2025-01-09 13:26 | Outpatient (BNVA) | payer OTHER, SELFPAY | PROVIDERS: PCP Internal Medicine; Visit Provider Internal Medicine Nephrology | DX: I15.0 Renovascular hypertension (principal); N18.31 Chronic kidney disease, stage 3a | CPT/HCPCS: 99212 ==

== ENCOUNTER 2025-04-02 12:24 | Outpatient (REF) | payer OTHER, SELFPAY ==
[2025-04-02 18:57] LABS: Anion Gap 12 (12-20); Blood Urea Nitrogen 27 mg/dL (9-16); Carbon Dioxide 25 mmol/L (22-29); Chloride 107 mmol/L (96-108); Estimated Glomerular Filt Rate 43; Potassium 4.2 mmol/L (3.3-5.1); Sodium 140 mmol/L (135-145)
[2025-04-02 19:31] LABS: Protein/Creatinine Ratio, Ur 0.20 (<0.2); Total Protein Urine Random 14 mg/dL (<12)
== END 2025-04-02 12:25 | disposition home or self-care (01) ==
LOC: HO.HKASLDS 12:24
PROVIDERS: PCP Internal Medicine; Visit Provider Internal Medicine Nephrology
DX: I15.0 Renovascular hypertension (principal); N18.31 Chronic kidney disease, stage 3a
CPT/HCPCS: 36415; 80051; 82565; 82570; 84156; 84520

== ENCOUNTER 2025-04-10 11:49 | Outpatient (AMB) | payer OTHER, SELFPAY ==
--- OUTSIDE RECORDS SUMMARY | 2025-04-09 13:30 | XMS_ITS | Encounter Summary ---
Author Organization [facility] Address [address] [place] [address] Care Team Providers Care Carroter Name Role Phone Fernanda Robins MD Primary Care Provider [phone] Reason for Visit * Reason Comments Diabetes Mellitus 2 month Osteoporosis 2 month Encounter Details Date Type Department Care Team (Late st Contact Info) Description 04/09/2025 1:30 PM EST Office Visit Endocrinology - [address] [phone] Sarah Cobian PA [address] [place] [address] Type 2 diabetes mellitus with chronic kidney disease, without long-term current use of insulin, unspecified CKD stage (CMS/HCC V24, CMS/HCC V28) (Primary Dx); Primary hypertension; Stage 3 chronic kidney disease, unspecified whether stage 3a or 3b CKD (CMS/HCC V24, CMS/HCC V28); Osteoporosis, unspecified osteoporosis type, unspecified pathological fracture presence; Mixed hyperlipidemia; Thyroid nodule Social History Tobacco Use Types Packs/Day Years Used Date Smoking Tobacco: Former Cigarettes 0 Q uit: 04/24/1989 Smokeless Tobacco: Never Tobacco [...] care for your loved ones. For example, early childhood worker or elderly care for an older [...] Date Recorded What is your living situation? Unrecognized valu e 07/25/2024 Comments No Sex and Gender Information Value Date Recorded Sex Assigned at Female 02/21/2024 10:31 AM EDT Legal Sex Female 10:45 PM EST Gender Identity Female 02/21/2024 10:31 AM EDT Sexual Orientation Straight 11/01/2024 4: 06 PM EDT documented as of this encounter Last Filed Vital Signs Vital Sign Reading Time Taken Comments Blood Pressure 103/52 04/09/2025 1:27 PM EST Pulse 89 04/09/2025 1:27 PM EST Temperature 36.3 C (97.3 F) 04/09/2025 1:27 PM EST Respiratory Rate - - Oxygen Saturation - - Inhaled Oxygen Concentration - - Weight 70.6 kg (155 lb 9.6 oz) 04/09/2025 1:27 P M EST Height 157.5 cm (5' 2 ) 04/09/2025 1:27 PM EST Body Mass Index 28.46 04/09/2025 1:27 PM EST documented in this encounter Ordered Prescriptions Prescription Sig Dispense Quantity Refills Last Filled Start Date End Date insulin glargine (Lantus Solostar U-100 Insulin) 100 unit/mL (3 mL) injection pen Inject 52 units sc at bedtime, go up by 4 units every 4 days if BS readings above 130. Max dose 60 units 15 mL 11 04/09/2025 documented in this encounter Progress Notes * Lucas Govea MA - 04/09/2025 1:30 PM EST Visit Vitals BP 103/52 (BP Location: Left arm, Patient Position: Sitting, BP Cuff Size: Large adult) Pulse 89 Temp 36.3 ??C (97.3 ??F) (Temporal) Ht 1.575 m (62 ) Wt 70.6 kg (155 lb 9.6 oz) BMI 28.46 kg/m?? OB Status Postmenopausal Smoking Status Former BSA 1.72 m?? If blood pressure is greater than 140/90 was average BP completed? N/A Medication list reviewed and refills pended: Yes Blood sugar: FSBS: Lab Results Component Value Date GLUCOSE 166 04/09/2025 . Is sugar <70 or > 400? No. Is patient on CGM? No. .If yes, please update blue sticky note with DME or pharmacy information. Are labs up to date? yes Foot Exam Due: yes Eye Exam Due: no * STEPHAN Bauman - 04/09/2025 1:30 PM EST CHIEF COMPLAINT: Diabetes Mellitus (2 month) and Osteoporosis (2 month) IDENTIFIER: Margarita Kidd is a 80 y.o. old female. HPI: Patient presents to the office for diabetes follow up. Past medical history of type 2 diabetes, asthma, coronary artery disease, hypertension, hyperlipidemia, osteoporosis, anxiety and depression. 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 She does have chronic kidney disease stage III. Diabetic medication Lantus 46 units. Jardiance 25 mg being prescribed by nephrology In the past she was on Trulicity discontinued due to severe GI's side effect. She did go to the ER for those symptoms Metformin recently discontinued due to kidney function Blood sugar in the office 166. States in the morning her sugars in the 190s, but normally in the evenings around 200-050. She does tell me that she went to the ER for asthma. And was on steroids. Blood sugars were as high as 320 Hypertension: 103/52. On lisinopril 10 mg, Imdur 30 mg hydrochlorothiazide 12.5 mg, amlodipine 2.5 mg Hyperlipidemia: On Zetia 10 mg, rosuvastatin 10 mg Thyroid nodule: Patient with history of thyroid nodules. Had biopsy done in 2020 with benign results\ She was seeing Dr. Cruz for this. She had last ultrasound done in 2022 that demonstrated biggest nodule in the right lobe, midpole, measuring 1.9 x 1.2 x 1.2 cm hypoechoic solid, increased from previous Patient denies any issues swallowing, changes in voice, or any symptoms I rechecked ultrasound, see below for detail report. Nodules with no need for biopsy Osteoporosis: Also was seeing Dr. Cruz for this. Being treated with Prolia. States she received an infusion center about 2 months ago Denies any fractures Continues with lifestyle modifications no side effects to medication She did have bone density done this year that demonstrated his T-score in the spine -0.9, left femur -2.8. 8.3% major risk of osteoporotic fracture, 2.1% of hip fracture Wt Readings from Last 3 Encounters: 04/09/25 70.6 kg (155 lb 9.6 oz) 03/07/25 69.9 kg (154 lb) 02/04/25 70.8 kg (156 lb) ROS: GENERAL: No malaise, significant weight loss or fever HEENT: No changes in hearing or vision, nose bleeds or other nasal problems RESPIRATORY: No cough, wheezing or shortness of breath CARDIOVASCULAR: No chest pain, leg swelling or palpitations GI: No abdominal discomfort, blood in stools or black stools ENDOCRINE: See HPI MUSCULOSKELETAL: No joint pain or swelling, back pain, or muscle pain. NEURO: No persistent headache, syncope, seizures, weakness or numbness PAST MEDICAL HISTORY: Patient Active Problem List Diagnosis Date Noted Calcification of aorta ([facility] V24) 01/17/2025 Vitamin B12 deficiency 10/11/2024 Right bundle branch block 10/11/2024 MR (mitral regurgitation) 07/12/2023 Headache 07/10/2023 Chronic pain of both knees 01/11/2023 Primary osteoarthritis of both knees 01/11/2023 Urinary incontinence 01/11/2023 Kidney lesion, [place], right 05/20/2022 Chronic rhinitis 06/10/2021 CAD (coronary artery disease) 03/23/2021 Polyneuropathy 07/02/2020 Osteoporosis 02/13/2019 Carotid stenosis 01/16/2018 MARGARITA positive 04/26/2017 Iron deficiency anemia 01/09/2017 Thyroid nodule 01/09/2017 DM (diabetes mellitus), type 2 with neurological complications ([facility] V24, [facility] V28) 10/07/2016 Elevated sed rate 10/23/2015 Lung nodules 10/23/2015 CKD (chronic kidney disease) stage 3, GFR 30-59 ml/min ([facility] V24, [facility] V28) 03/17/2015 Tremor 01/20/2011 Spinal stenosis in cervical region 05/25/2010 Radiculitis, cervical 05/17/2010 Radiculitis, lumbosacral 05/17/2010 Anxiety and depression 01/22/2009 HTN (hypertension) 03/06/2006 Hyperlipidemia 04/14/2005 Mild persistent asthma 04/14/2005 DM (diabetes mellitus), type 2 with renal complications ([facility] V24, [facility] V28) 04/14/2005 SOCIAL HISTORY: Social History Tobacco Use Smoking status: Former Current packs/day: 0.00 Types: Cigarettes Quit date: 04/24/1989 Years since quittin.9 Smokeless tobacco: Never Substance Use Topics Alcohol use: Never FAMILY HISTORY: Family Status Relation Name Status Father Mother Daughter x5 Alive Brother 21 kids (Not Specified) Sister (Not Specified) MGM (Not Specified) Neg Hx (Not Specified) No partnership data on file Family History Problem Relation Name Age of Onset Diabetes Father Diabetes Mother Diabetes Daughter x5 Hypertension Daughter x5 Diabetes Brother 21 kids Diabetes Sister Heart attack Sister Colon cancer Maternal Grandmother Breast cancer Neg Hx Ovarian cancer Neg Hx ACTIVE MEDICATIONS: Outpatient Medications Marked as Taking for the 04/09/25 encounter (Office Visit) with STEPHAN Bauman Medication Sig Dispense Refill albuterol HFA (Ventolin HFA) 90 mcg/actuation inhaler Inhale 2 puffs by mouth every 6 (six) hours if needed for wheezing. 1 each 0 amLODIPine (NORVASC) 2.5 mg tablet TAKE 1 TABLET BY MOUTH DAILY 90 tablet 1 aspirin 81 mg chewable tablet Chew 1 tablet (81 mg total) 1 (one) time each day. chew & [id number] tablet 1 blood sugar diagnostic (FreeStyle Lite Strips) test strip Use as instructedUSE DIRECTED TO TEST BLOOD SUGAR TWICE DAILY BEFORE A MEAL 200 strip 11 blood-glucose meter kit Use daily or as directed for monitoring of diabetes 1 each 0 budesonide-formoteroL (SYMBICORT) 160-4.5 mcg/actuation inhaler Inhale 2 puffs by mouth 2 (two) times a day. Rinse mouth with water after use to reduce aftertaste and incidence of candidiasis. Do notswallow. 3 each 3 calcium carbonate 1,500 mg (600 mg elemental calcium) tablet TAKE 1 TABLET BY MOUTH TWICE DAILY WITH MEALS 180 tablet 1 clobetasoL (TEMOVATE) 0.05 % ointment Apply nightly to affected area 30 g 2 denosumab (Prolia) 60 mg/mL syringe syringe INJECT 1 SYRINGE (60MG) UNDER THE SKIN EVERY 6 MONTHS 1mL 1 evolocumab (Repatha SureClick) 140 mg/mL pen injector injection Inject 1 mL (140 mg total) under the skin every 14 (fourteen) days. 2 mL 11 ezetimibe (ZETIA) 10 mg tablet TAKE 1 TABLET BY MOUTH DAILY 90 tablet 3 fexofenadine (ROS) 180 mg tablet Take 1 tablet (180 mg total) by mouth 1 (one) time each day ifneeded (alleriges). 90 tablet 3 freestyle 28 gauge lancets Check blood sugar 1 times a day or as directed 100 each 11 incontinence pad, liner, disp pad Disposable Incontinence liners Use up to 8 times daily for Incontinence Indefinite Use Dx: R32 ,E11.49, E11.29 , N18.30, G62.9, R26.81 insulin glargine (Lantus Solostar U-100 Insulin) 100 unit/mL (3 mL) injection pen Inject 52 units sc at bedtime, go up by 4 units every 4 days if BS readings above 130. Max dose 60 units 15 mL 11 ipratropium-albuteroL (DUONEB) 0.5-2.5 mg/3 mL nebulizer solution Take 3 mL by nebulization every 6(six) hours if needed for wheezing. 360 mL 11 isosorbide mononitrate (IMDUR) 30 mg 24 hr tablet TAKE 2 TABLETS BY MOUTH DAILY 180 tablet 1 Jardiance 25 mg tablet Take 1 tablet (25 mg total) by mouth 1 (one) time each day. 90 tablet 3 LORazepam (ATIVAN) 1 mg tablet Take 1 tablet (1 mg total) by mouth 1 (one) time each day for 28 days. Max Daily Amount: 1 mg 28 each 0 meclizine (ANTIVERT) 12.5 mg tablet Take 1 tablet (12.5 mg total) by mouth 3 (three) times a day ifneeded for dizziness. 30 tablet 0 pen needle, diabetic (BD Ultra-Fine Mini Pen Needle) 31 gauge x 3/16 needle Use daily with [id number] each 11 rosuvastatin (CRESTOR) 10 mg tablet Take 1 tablet (10 mg total) by mouth 1 (one) time each day. 30 each 5 sertraline (ZOLOFT) 25 mg tablet Take 1 tablet (25 mg total) by mouth 1 (one) time each day. 90 each 1 [DISCONTINUED] insulin glargine (Lantus Solostar U-100 Insulin) 100 unit/mL (3 mL) injection pen Inject 46 units sc at bedtime, go up by 4 units every 4 days if BS readings above 130. Max dose 60 units 15 mL 11 ALLERGIES: Naproxen and Penicillins PHYSICAL EXAM: Blood pressure 103/52, pulse 89, temperature 36.3 ??C (97.3 ??F), temperature source Temporal, height 1.575 m (62 ), weight 70.6 kg (155 lb 9.6 oz). Body mass index is 28.46 kg/m??. BMI is greater than 25.0 (above the normal range) - see Plan APPEARANCE: Alert and in no acute distress HEART: RRR with normal S1 and S2, no murmurs, no gallops, NECK: no thyroid enlargement, nodules or masses felt. LUNG: clear to auscultation NEURO: Awake, alert and oriented x 3 LABS: Lab Results Component Value Date HGBA1C 8.9 (H) 03/14/2025 CHOL 146 03/14/2025 LDL 56 01/11/2023 HDL 55 03/14/2025 TRIG 105 03/14/2025 Lab Results Component Value Date GLUCOSE 166 04/09/2025 No results found for: TSH IMAGING: Narrative & Impression HISTORY: The patient is a 79-year-old female [...] lobe, there is a well-circumscribed oval slightly hyperechoicmixed cystic and solid nodule measuring 1.8 x [...] it is tall and demonstrates no wall irregularityor calcifications. This is categorized as TI-RADS 2. IMPRESSION: 1. In the right lobe, there is a 1.8 x 1.3 x 1.3 cm TI-RADS 2 nodule in the interpolar region. 2. In the left lobe, there is a 0.4 x 0.2 x 0.4 cm TI-RADS 2 nodule at the upper pole. Code 08151 TI-RADS Category 1: 0 pts; benign; no follow-up TI-RADS Category 2: 2 pts; not suspicious; no FNA TI-RADS Category 3: 3 pts; mildly suspicious; < or = 1.5 cm f/u; > or = 2.5 FNA (f/u 1, 3 and5 yr) TI-RADS Category 4: 4-6 pts; moderately suspicious; < or = 1.0 cm follow-up; 1.5 cm FNA, (f/u 1,2, 3 and 5 yr) TI-RADS Category 5: 7 or > pts; highly suspicious; .5-.9 cm f/u; 1.0 cm or > FNA (f/u annually up to 5 yr) -------- FINAL REPORT -------- Dictated By: Shawn Gutierrez Dictated Date: 11/13/2024 11:36 ET Assigned Physician: Shawn Gutierrez Reviewed and Electronically Signed By: Shawn Gutierrez Signed Date: 11/13/2024 11:44 ET Workstation ID: [id number] Transcribed By: Self Edit Transcribed Date: 11/13/2024 11:40 ET Narrative & Impression HISTORY: The patient is a 79-year-old postmenopausal female with clinical concern for metabolic bone disease. FINDINGS: Dual energy x-ray absorptiometry of the lumbar spine and femurs is performed. The mean bone mineral density at L1-2 is 1.060 gm/cm2 which is 91% of that of young normals and 110% of that ofage matched controls. This yields a T- score of -0.9 and a Z-score of 0.8 [...] is -2.6 which is diagnostic of osteoporosis. IMPRESSION: 1. Osteoporosis. 2. FRAX analysis yields a 10-year probability of major osteoporotic fracture of 8.3% and a 10-year probability of hip fracture of 2.1%. Code 91994 -------- FINAL REPORT -------- Dictated By: Shawn Gutierrez Dictated Date: 12/27/2024 08:02 ET Assigned Physician: Shawn Gutierrez Reviewed and Electronically Signed By: Shawn Gutierrez Signed Date: 12/27/2024 08:03 ET Workstation ID: [id number] Transcribed By: Self Edit Transcribed Date: 12/27/2024 08:02 ET IMPRESSION: 1. Type 2 diabetes mellitus with chronic kidney disease, without long-term current use of insulin, unspecified CKD stage (CMS/HCC V24, CMS/HCC V28) 2. Primary hypertension 3. Stage 3 chronic kidney disease, unspecified whether stage 3a or 3b CKD (CMS/HCC V24, CMS/HCC V28) 4. Osteoporosis, unspecified osteoporosis type, unspecified pathological fracture presence 5. Mixed hyperlipidemia 6. Thyroid nodule PLAN: Patient presents to the for diabetes follow-up 1. Diabetes: Last A1c above goal. Blood sugar still running elevated Increase Lantus to 52 units. Go up by 4 units every 4 days if she average blood sugars fasting above 130 Recheck labs Follow-up in 3 months 2. Hypertension: Blood pressure at goal 3. Chronic kidney disease: Continue with nephrology recommendations 4. Osteoporosis: Being treated with Prolia. Continue with lifestyle modification 5. Hyperlipidemia: Labs reviewed. Continue on rosuvastatin 6. Thyroid nodule: Ultrasound results reviewed we will recheck next year Myself and my colleagues maintained a long-term, longitudinal relationship with this patient, overseeing care of chronic conditions including diabetes, ckd and hypertension. This care relationship has significantly influence my decision making and treatment plans during today's encounter. All questions and concerns were addressed. Patient understands and agrees with this treatment plan.Patient was reminded to call or return to the office if any new or existing problems arise This document was made using voice recognition software. It may contain some errors in grammar or syntax Medication and lab orders: Type 2 diabetes mellitus with chronic kidney disease, without long-term current use of insulin, unspecified CKD stage (CMS/HCC V24, CMS/HCC V28) (Primary) - POC glucose manually resulted - Hemoglobin A1c; Future - Microalbumin creatinine urine ratio; Future Primary hypertension Stage 3 chronic kidney disease, unspecified whether stage 3a or 3b CKD ([facility] V24, [facility] V28) Osteoporosis, unspecified osteoporosis type, unspecified pathological fracture presence Mixed hyperlipidemia Thyroid nodule Other orders - insulin glargine (Lantus Solostar U-100 Insulin) 100 unit/mL (3 mL) injection pen; Inject 52 units sc at bedtime, go up by 4 units every 4 days if BS readings above 130. Max dose 60 units Dispense:15 mL; Refill: 11 STEPHAN Bauman on 04/09/2025 at 1:58 PM EST documented in this encounter Plan of Treatment Upcoming Encounters Date Type Department Care Team (Late st Contact Info) Description 04/15/2025 10:30 AM EST Office Visit Internal Medicine - [address] [phone] Deya Henriquez NP [address] [place] [address] 05/07/2025 2:00 PM EST Consult [facility] [address] [facility] [address] [place] [phone] Kris Pack MD [address] [place] [address] 06/10/2025 1:15 PM EST Office Visit Obstetrics and Gynecology - [address] [phone] Cheryl Sanchez CNM [address] [place] [phone] 07/08/2025 1:00 PM EDT Office Visit Endocrinology - [address] [phone] Carolynn Rodriguez PA [address] [place] [address] 12/01/2025 12:00 PM EDT Ancillary Procedure [facility] - [address] [place] [phone] 01/02/2026 10:30 AM EDT Office Visit Vascular Surgery - [place] [address] [place] [phone] Jarrett Chinchilla MD [address] [place] [phone] Scheduled Orders Name Type Priority Associated Diagnoses Orde r Schedule Hemoglobin A1c Lab Routine Type 2 diabetes mellitus with chronic kidney disease, without long-term current use of insulin, unspecified CKD stage ([facility] V24, [facility] V28) Expected: 06/16/2025, Expires: 04/09/2026 Microalbumin creatinine urine ratio Lab Routine Type 2 diabetes mellitus with chronic kidney disease, without long-term current use of insulin, unspecified CKD stage ([facility] V24, [facility] V28) 1 Occurrences starting 04/09/2025 until 04/09/2026 documented as of this encounter Procedures Procedure Name Priority Date/Time Associated Diagnosis Comments POC GLUCOSE Routine 04/09/2025 1:36 PM EST Type 2 diabetes mellitus with chronic kidney disease, without long-term current use of insulin, unspecified CKD stage ([facility] V24, [facility] V28) documented in this encounter Results * POC glucose manually resulted (04/09/2025 1:36 PM EST) Glucose POC 166 mg/dL Blood Capillary blood specimen / Unknown 04/09/2025 1:36 PM EST us Sarah ROTHMAN POINT OF CARE TEST ENTER/ED IT ORDERABLES Final Result documented in this encounter Visit Diagnoses Diagnosis Type 2 diabetes mellitus with chronic kidney disease, without long-term current use of insulin, unspecified CKD stage ([facility] V24, [facility] V28)- Primary Primary hypertension Unspecified essential hypertension Stage 3 chronic kidney disease, unspecified whether stage 3a or 3b CKD ([facility] V24, [facility] V28) Osteoporosis, unspecified osteoporosis type, unspecified pathological fracture presence Mixed hyperlipidemia Thyroid nodule Nontoxic uninodular goiter documented in this encounter Discontinued Medications Medication Sig Discontinue Reason Start Date End Da te insulin glargine (Lantus Solostar U-100 Insulin) 100 unit/mL (3 mL) injection pen Inject 46 units sc at bedtime, go up by 4 units every 4 days if BS readings above 130. Max dose 60 units Reorder 02/04/2025 04/09/2025 documented as of this encounter Additional Health Concerns Assessment Noted Time PHQ-9 Depression Total Score: 1 07/26/19 25 2:23 PM EDT documented as of this encounter Care Teams Carroter Relationship Specialty Start Date End Date Fernanda Robins MD [address] [place] [phone] PCP - General Internal Medicine 08/22/24 documented as of this encounter
--- NOTE | 2025-04-10 12:22 | HO.NEPHOV_ITS ---
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 Her ACEI has been put on hold and has been started on K lowering medication since she had CLARENCE and hyperkalemia. She has history of for diabetes mellitus and hypertension. She has history of carotid disease . Her blood sugar control is fair. She has not had any epistaxis, photosensitivity, skin r ashes, pedal edema, excessive nonsteroidal anti-inflammatory medication intake, hematuria, renal stones, new bone or back pain. She avoids excessive nonsteroidal anti-inflammatory medications. She tries to hydrate herself well. She has no chest pain, shortness of breath, paroxysmal nocturnal dyspnea, orthopnea, history of hypercalcemia or dizziness. She has not had any nephrolithiasis since last office visit. She is tolerating Jardiance well. She claims to be compliant with her medications [facility] Medical History HLD (hyperlipidemia) HTN (hypertension) Diverticulitis Anxiety and depression Cervical spinal stenosis Tremor CKD (chronic kidney disease) Thyroid nodule MARGARITA positive Carotid stenosis History of COVID-19 Nephrolithiasis Polyneuropathy CAD (coronary artery disease) Diabetes Surgical History Status post cardiac catheterization History of back surgery Family History Father HTN (hypertension) Diabetes mellitus Heart disease Mother HTN (hypertension) Diabetes mellitus Kidney disease Social History Alcohol intake: current Alcohol intake frequency: former alcohol drinker Patient Tobacco Use Status: Former Tobacco user Review of Systems Const All systems reviewed & are unremarkable except as noted in HPI and below Physical Exam Vital Signs: Last Vital Signs Pulse 90 04/10/25 12:23 BP 130/60 04/10/25 12:23 Pulse Ox 95 04/10/25 12:23 Oxygen Delivery Method Room Air 04/10/25 12:23 BMI result Body Mass Index 27.3 Const General: comfortable and no acute distress Orientation/consciousness: patient oriented x3 HEENT Head: Yes normocephalic Mouth: Normal oral and palatal mucosa present Eyes EOM: EOMs intact bilaterally Neck Neck: Yes supple Resp Auscultation: clear to auscultation bilaterally Cardio Jugular venous distension: no JVD Rate: regular rate GI Palpation (GI): Soft to palpation Auscultation: normal bowel sounds General: Yes no CVA tenderness Back/Spine/Pelvis Back: no CVA tenderness Skin General skin exam: no rashes or lesions noted Neuro General: patient oriented x3 and moves all extremities Extrem General: Yes no pedal edema Results Reviewed Nephrology Results: Sodium, (135-145) 140 mmol/L 04/02/25 Potassium, (3.3-5.1) 4.2 mmol/L Δ 04/02/25 Chloride, (96-108) 107 mmol/L 04/02/25 Carbon Dioxide, (22-29) 25 mmol/L 04/02/25 BUN, (9-16) 27 mg/dL H 04/02/25 Creatinine, (0.5-1.4) 1.21 mg/dL 04/02/25 Urine Creatinine 70.31 mg/dL 04/02/25 Protein/Creatinin Ratio, (<0.2) 0.20 04/02/25 Assessment & Plan Assessment & Plan (1) CKD (chronic kidney disease) stage 3, GFR 30-59 ml/min: Code(s): N18.30 - Chronic kidney disease, stage 3 unspecified Category: Medical Qualifiers: Chronic kidney disease stage 3 subtype: stage 3a (GFR 45-59) Qualified Code(s): N18.31 - Chronic kidney disease, stage 3a (2) HTN (hypertension): Code(s): I10 - Essential (primary) hypertension Category: Medical Qualifiers: Hypertension type: renovascular hypertension Qualified Code(s): I15.0 - Renovascular hypertension Plan Margarita has longstanding hypertension and diabetes mellitus. Her blood sugar control is fair. She needs to maintain steady weight as well as good exercise. She is on Jardiance 25 mg daily. Her lisinopril has been put on hold due to CLARENCE and hyperkalemia. She is on K lowering medication. She has carotid disease which has been stable. She should maintain good hydration and avoid nonsteroidal anti-inflammatory medications if at all possible. F/U labs ordered. I have answered all questions Orders: Orders Blood Urea Nitrogen 3 Months I15.0 - Renovascular hypertension, N18.31 - Chronic kidney disease, stage 3a Creatinine 3 Months I15.0 - Renovascular hypertension, N18.31 - Chronic kidney disease, stage 3a Electrolytes 3 Months I15.0 - Renovascular hypertension, N18.31 - Chronic kidney disease, stage 3a Coding Level of Care Code Est Pt Level 4 (78635) Diagnoses Stage 3a chronic kidney disease N18.31 Chronic kidney disease stage 3 subtype: stage 3a (GFR 45-59) Renovascular hypertension I15.0 Hypertension type: renovascular hypertension
[2025-04-10 12:23] VITALS: BP 130/60; PULSE 90; O2SAT 95; BMI 27.3
--- OUTSIDE RECORDS SUMMARY | 2025-04-10 15:41 | XMS_ITS | Clinical Summary ---
Author Organization [facility] Address [address] [place] [address] Phone Care Team Providers Care Technical Training Specialist Name Role Phone Fernanda Robins MD Primary Care Provider [phone] Allergies Active Allergy Reactions Criticality Noted Date Comments Naproxen Nausea And Vomiting 06/01/2016 Penicillins Rash 04/14/2005 Medications incontinence pad, liner, disp pad Disposable Incontinence liners Use up to 8 times daily for Incontinence Indefinite Use Dx: R32 ,E11.49, E11.29 , N18.30, G62.9, R26.81 08/04/19 24 Active albuterol HFA (Ventolin HFA) 90 mcg/actuation inhalerIndication s:Mild intermittent asthma without complication Inhale 2 puffs by mouth every 6 (six) hours if needed for wheezing. 1 each 03/26/20 24 Active calcium carbonate 1,500 mg (600 mg elemental calcium) tablet TAKE 1 TABLET BY MOUTH TWICE DAILY WITH MEALS 180 tablet 1 05/15/19 25 Active blood-glucose meter kit Use daily or as directed for monitoring of diabetes 1 each 07/20/19 25 026 Active freestyle 28 gauge lancets Check blood sugar 1 times a day or as directed 100 each 07/20/19 25 026 Active budesonide-formot Albert (SYMBICORT) 160-4.5 mcg/actuation inhaler Inhale 2 puffs by mouth 2 (two) times a day. Rinse mouth with water after use to reduce aftertaste and incidence of candidiasis. Do not swallow. 3 each 3 09/13/19 25 026 Active ipratropium-albut Albert (DUONEB) 0.5-2.5 mg/3 mL nebulizer solutionIndicatio ns:Moderate persistent asthma, unspecified whether complicated Take 3 mL by nebulization every 6 (six) hours if needed for wheezing. 360 mL 09/13/19 25 026 Active evolocumab (Repatha SureClick) 140 mg/mL pen injector injectionIndicati ons:Mixed hyperlipidemia Inject 1 mL (140 mg total) under the skin every 14 (fourteen) days. 2 mL 09/18/19 25 026 Active fexofenadine (ROS) 180 mg tablet Take 1 tablet (180 mg total) by mouth 1 (one) time each day if needed (alleriges). 90 tablet 3 10/12/19 25 026 Active Ubrelvy 100 mg tablet TAKE 1/2 - 1 TABLET BY MOUTH ONCE NEEDED FOR MIGRAINE FOR 30 DAYS TAKE AT ONSET OF MIGRAINE MAY REPEAT DOSE IN 2 HOURS MAY TAKE TYLENOL 10/08/19 25 Active denosumab (Prolia) 60 mg/mL syringe syringe INJECT 1 SYRINGE (60MG) UNDER THE SKIN EVERY 6 MONTHS 1 mL 1 11/01/19 25 Active Jardiance 25 mg tablet Take 1 tablet (25 mg total) by mouth 1 (one) time each day. 90 tablet 3 11/01/19 25 Active isosorbide mononitrate (IMDUR) 30 mg 24 hr tablet TAKE 2 TABLETS BY MOUTH DAILY 180 tablet 1 12/04/19 25 Active rosuvastatin (CRESTOR) 10 mg tablet Take 1 tablet (10 mg total) by mouth 1 (one) time each day. 30 each 5 12/19/19 25 026 Active sertraline (ZOLOFT) 25 mg tablet Take 1 tablet (25 mg total) by mouth 1 (one) time each day. 90 each 1 12/25/19 25 026 Active amLODIPine (NORVASC) 2.5 mg tablet TAKE 1 TABLET BY MOUTH DAILY 90 tablet 1 01/03/20 25 Active blood sugar diagnostic (FreeStyle Lite Strips) test strip Use as instructedUSE DIRECTED TO TEST BLOOD SUGAR TWICE DAILY BEFORE A MEAL 200 strip 02/05/20 25 Active pen needle, diabetic (BD Ultra-Fine Mini Pen Needle) 31 gauge x 3/16 needle Use daily with insulin 100 each 11 02/05/20 25 Active ezetimibe (ZETIA) 10 mg tablet TAKE 1 TABLET BY MOUTH DAILY 90 tablet 3 02/28/20 25 Active aspirin 81 mg chewable tablet Chew 1 tablet (81 mg total) 1 (one) time each day. chew & swallow 90 tablet 1 02/29/20 25 Active nystatin-triamcin olone (MYCOLOG II) ointment 3-4x/day to affected area x10 days 30 g 1 03/07/20 25 Active clobetasoL (TEMOVATE) 0.05 % ointment Apply nightly to affected area 30 g 2 03/07/20 25 Active LORazepam (ATIVAN) 1 mg tablet Take 1 tablet (1 mg total) by mouth 1 (one) time each day for 28 days. Max Daily Amount: 1 mg 28 each 03/28/20 25 026 Active meclizine (ANTIVERT) 12.5 mg tabletIndications :Dizziness Take 1 tablet (12.5 mg total) by mouth 3 (three) times a day if needed for dizziness. 30 tablet 03/28/20 25 026 Active insulin glargine (Lantus Solostar U-100 Insulin) 100 unit/mL (3 mL) injection pen Inject 52 units sc at bedtime, go up by 4 units every 4 days if BS readings above 130. Max dose 60 units 15 mL 04/09/20 25 Active meclizine (ANTIVERT) 12.5 mg tabletIndications :Dizziness Take 1 tablet (12.5 mg total) by mouth 3 (three) times a day if needed for dizziness. 30 tablet 01/02/20 25 025 Discontin ued(Reord er) insulin glargine (Lantus Solostar U-100 Insulin) 100 unit/mL (3 mL) injection pen Inject 46 units sc at bedtime, go up by 4 units every 4 days if BS readings above 130. Max dose 60 units 15 mL 11 02/05/20 25 025 Discontin ued(Reord er) LORazepam (ATIVAN) 1 mg tablet Take 1 tablet (1 mg total) by mouth 1 (one) time each day for 28 days. Max Daily Amount: 1 mg 28 each 02/29/20 25 025 Discontin ued(Reord er) Active Problems Problem Noted Date Diagnosed Date Calcification of aorta 01/17/2025 Assessment & Plan (01/17/2025 2:41 PM EDT): Patient's risk factors are adequately controlled and she remains on statin, aspirin and Repatha. Vitamin B12 deficiency 10/11/2024 Right bundle branch block 10/11/2024 MR (mitral regurgitation) 07/12/2023 Assessment & Plan (08/15/2024 1:06 PM EDT): Mild by previous echocardiograms, but seemed improved on 2023 echocardiogram. Continue to monitor by echocardiogram as per ACC standards and as clinically indicated. Headache 07/10/2023 Chronic pain of both knees 01/11/2023 Primary osteoarthritis of both knees 01/11/2023 Urinary incontinence 01/11/2023 Kidney lesion, [place], right 05/20/2022 Chronic rhinitis 06/10/2021 CAD (coronary [...] no significant valvular disease Assessment & Plan (01/17/2025 2:41 PM EDT): She has history of coronary artery disease status post LAD stenting in the past. Nuclear stress test earlier this year did not reveal any evidence of ischemia. Patient has any exertional anginal symptoms. She continues on cardioprotective medical therapy with aspirin, isosorbide, Zetia, rosuvastatin and Repatha. I have reviewed with the patient the importance of a heart healthy lifestyle which includes eating a low-fat low-salt diet, getting regular exercise, maintaining a healthy weight, not smoking, and following up with routine medical care. Assessment & Plan (08/15/2024 1:06 PM EDT): [...] 50 - 69% bilaterally Assessment & Plan (01/17/2025 2:41 PM EDT): Patient denies any neurological symptoms. She has bilateral carotid artery stenosis and was seen by vascular. No intervention necessary at this time. Patient to remain on lipid-lowering agents with Repatha and statin. She continues on aspirin therapy. Assessment & Plan (08/15/2024 1:06 PM EDT): [...] 01/22/2009 HTN (hypertension) 03/06/2006 Assessment & Plan (01/17/2025 2:41 PM EDT): Patient is blood pressure is under adequate control with a reading today of 134/70. No changes to her present medical therapies and would recommend she remain on amlodipine as prescribed. Assessment & Plan (08/15/2024 1:06 PM EDT): Well controlled. Continue with lisinopril, amlodipine, HCTZ, and isosorbide. Hyperlipidemia 04/14/2005 Assessment & Plan (01/17/2025 2:41 PM EDT): Patient's last LDL cholesterol was elevated at 149. This was back in October when she could no longer obtain Praluent. She has now been on Repatha and rosuvastatin. We will update a lipid panel. Assessment & Plan (08/15/2024 1:06 PM EDT): Continue with alirocumab and ezetimibe. Mild persistent asthma 04/14/2005 DM (diabetes mellitus), type 2 with renal compli cations 04/14/2005 Encounters Date Type Department Care Team Description 04/09/2025 1:30 PM EST Office Visit Endocrinology - [address] [phone] Sarah Cobian PA Type 2 diabetes mellitus with chronic kidney disease, without long-term current use of insulin, unspecified CKD stage (CMS/HCC V24, CMS/HCC V28) (Primary Dx); Primary hypertension; Stage 3 chronic kidney disease, unspecified whether stage 3a or 3b CKD ([facility]/HCC V24, CMS/HCC V28); Osteoporosis, unspecified osteoporosis type, unspecified pathological fracture presence; Mixed hyperlipidemia; Thyroid nodule 04/03/2025 Results Follow-Up Internal Medicine - [address] [phone] Florecita Longoria MA 03/28/2025 Results Follow-Up Endocrinology - [address] [phone] Sarah Cobian PA 03/17/2025 Results Follow-Up Internal Medicine - [address] [phone] Fernanda Robins MD 03/14/2025 12:10 PM EST Lab Draw Station [address] Type 2 diabetes mellitus with chronic kidney disease, without long-term current use of insulin, unspecified CKD stage ([facility]/HCC V24, [facility]/HCC V28); Mixed hyperlipidemia 03/14/2025 Telephone Internal Medicine - [address] [phone] Florecita Longoria MA 03/07/2025 1:45 PM EST Office Visit Obstetrics and Gynecology - [address] [phone] Lauren Rider CNM Vaginal burning (Primary Dx); Vaginal itching 03/07/2025 Results Follow-Up Obstetrics & Gynecology - [address] [phone] Lauren Rider CNM 02/05/2025 Results Follow-Up Endocrinology [address] [phone] Sarah Cobian PA 02/04/2025 1:00 PM EDT Office Visit Endocrinology [address] [phone] Sarah Cobian PA Type 2 diabetes mellitus with chronic kidney disease, without long-term current use of insulin, unspecified CKD stage (CMS/HCC V24, CMS/HCC V28) (Primary Dx); Primary hypertension; Stage 3 chronic kidney disease, unspecified whether stage 3a or 3b CKD (CMS/HCC V24, CMS/HCC V28); Osteoporosis, unspecified osteoporosis type, unspecified pathological fracture presence; Thyroid nodule 01/27/2025 Telephone Endocrinology [address] [phone] Sarah Cobian PA 01/17/2025 2:40 PM EDT Office Visit [facility] [address] [facility] [place] [address] [place] [address] [phone] Shobha Lam, VISUAL MERCHANDISING MANAGER Coronary artery disease involving [place] coronary artery of [place] heart without angina pectoris (Primary Dx); Calcification of aorta (CMS/HCC V24); Primary hypertension; Mixed hyperlipidemia; Bilateral carotid artery stenosis from Last 3 Months Immunizations Immunization Administration Dates Next Due Hepatitis B (Doqlvok-M-Opdho , Recombivax HB-Adult) 19yo and older 02/24/2009 [...] negative examination. UPPER GASTROINTESTINAL ENDOSCOPY 12/12/2016 PROCEDURE: [place] UPPER GI ENDOSCOPY PERFORMED; COMMENT: Visually normal; duodenal biopsies: normal. OTHER SURGICAL HISTORY 01/04/2017 PROCEDURE: OUTSIDE ENDOSCOPY; COMMENT: [facility]; intestinal pillcam normal. Medical History Medical History Date Comments Essential hypertension, benign 03/06/2006 D X:Essential hypertension, benign Herpes zoster DX:Herpes zoster Type 2 diabetes mellitus wit h renal manifestations (CMS/HCC V24, CMS/HCC V28) 04/14/2005 DX:Type 2 diabetes mellitus with renal manifestations ([facility]) Tremor 01/20/2011 DX:Tremor Spinal stenosis in [...] kidney disease) stage 3, GFR 30-59 ml/min ([facility] V24, [facility] V28) 03/17/2015 DX:CKD (chronic kidney disea se) stage 3, GFR 30-59 ml/min ([facility]) Unspecified asthma(493.90) 04/14/2005 DX:Un specified asthma(493.90) Anxiety and depression 01/22/2009 DX:Anxiet y and depression Diverticulitis large intestine 03/06/2006 D X:Diverticulitis large intestine; COMMENT: As of 2018; approx 4 uncomplicated attacks. DM (diabetes mellitus), type 2 with neurological complications ([facility] V24, [facility] V28) 10/07/2016 DX:DM (diabetes mellitus), t ype 2 with neurological complications ([facility]) Polyneuropathy 07/02/2020 DX:Polyneuropath y DM (diabetes mellitus), type 2 with renal complications ([facility] V24, [facility] V28) 04/14/2005 DX:DM (diabetes mellitus), t ype 2 with renal complications ([facility]) History of subdural hematoma (post traumatic) 07/02/2020 [...] care for your loved ones. For example, manager primary care or elderly care for an older adult? [...] F) 04/09/2025 1:27 PM EST Respiratory Rate 16 03/07/2025 1:36 PM EST Oxygen Saturation 98% 01/17/2025 2:08 PM EDT Inhaled Oxygen Concentration - - Weight 70.6 kg (155 lb 9.6 oz) 04/09/2025 1:27 P M EST Height 157.5 cm (5' 2 ) 04/09/2025 1:27 PM EST Body Mass Index 28.46 04/09/2025 1:27 PM EST Plan of Treatment Upcoming Encounters Date Type Department Care Team (Late st Contact Info) Description 04/15/2025 10:30 AM EST Office Visit Internal Medicine - [facility] [address] [place] [phone] Deya Henriquez NP [address] [place] [address] 05/07/2025 2:00 PM EST Consult [facility] [address] [place] [phone] Kris Pack MD [address] [place] [address] 06/10/2025 1:15 PM EST Office Visit Obstetrics and Gynecology - [facility] [address] [place] [phone] Cheryl Sanchez CNM [address] [place] [phone] 07/08/2025 1:00 PM EDT Office Visit Endocrinology - [place] [address] [place] [phone] Carolynn Rodriguez PA [address] [place] [address] 12/01/2025 12:00 PM EDT Ancillary Procedure [facility] - [facility] [address] [facility] [address] [place] [phone] 01/02/2026 10:30 AM EDT Office Visit Vascular Surgery - [place] [address] [place] [phone] Jarrett Chinchilla MD [address] [place] [phone] Health Maintenance Due Date Last Done Comments Non-Opioid Controlled Substance Agreement 1945 Zoster Vaccines (1 of 2) 1966 Hepatitis B Vaccines (2 of 3 - 19+ 3-dose series) 03/24/2009 02/24/2009 COVID-19 Vaccine (3 - Moderna risk series) 10/10/2020 09/12/2020, 08/15/2020 RSV Immunization Adult Patients (1 - 1-dose 75+ series) 2022 Diabetes: Annual Urine Albumin-Creatinine Ratio (uACR) 10/12/2022 10/12/2021 Diabetes: Annual Foot Exam 02/11/2023 02/11/2022 Diabetes: Annual Retina Eye Exam 06/25/2025 06/25/2024, 04/02/2024, 10/30/2023 Falls Risk Assessment 07/25/2025 07/25/2024 Medicare Annual Wellness Visit 07/25/2025 07/25/2024 Social Influencers of Health Screening 07/25/2025 07/25/2024 Diabetes: Blood Sugar Control Test (HGBA1C) 09/11/2025 03/14/2025, 12/03/2024, 08/26/2024, Additional history exists Drug Screen 10/11/2025 10/11/2024, 08/26/2024 Diabetes: Annual GFR (Glomerular Filtration Rate) 02/04/2026 02/04/2025, 12/30/2024, 12/03/2024, Additional history exists Hypertension/CHF/CAD Annual BMP Blood Test 02/04/2026 02/04/2025, 12/30/2024, 12/03/2024, Additional history exists Cholesterol Screening (Lipid Panel) 03/14/2030 03/14/2025, 10/24/2024, 01/11/2023 DTaP,Tdap,and Td Vaccines (4 - [...] current use of insulin, unspecified CKD stage ([facility] V24, [facility] V28) EXTERNAL CLINICAL LAB 04/03/2025 LIPID PANEL WITH REFLEX TO DIRECT LDL Routine 03/14/2025 12:10 PM EST Mixed hyperlipidemia ASPARTATE AMINOTRANSFERASE Routine 03/14/2025 12:10 PM EST Mixed hyperlipidemia ALANINE AMINOTRANSFERASE Routine 03/14/2025 12:10 PM EST Mixed hyperlipidemia HEMOGLOBIN A1C Routine 03/14/2025 12:10 PM EST Type 2 diabetes mellitus with chronic kidney disease, without long-term current use of insulin, unspecified CKD stage ([facility] V24, [facility] V28) TRICHOMONAS VAGINALIS ANTIGEN Routine 03/07/2025 1:49 PM EST Vaginal burning Vaginal itching WET PREP, GENITAL Routine 03/07/2025 1:4 9 PM EST Vaginal burning Vaginal itching CULTURE GENITAL Routine 03/07/2025 1:49 PM EST Vaginal burning Vaginal itching BASIC METABOLIC PANEL Routine 02/04/2025 1:40 PM EDT DM (diabetes mellitus), type 2 with neurological complications ([facility] V24, CMS/[facility] V28) VITAMIN D 25 HYDROXY Routine 02/04/2025 1:40 PM EDT DM (diabetes mellitus), type 2 with neurological complications ([facility] V24, CMS/[facility] V28) POC GLUCOSE Routine 02/04/2025 12:54 PM EDT Type 2 diabetes mellitus with chronic kidney disease, without long-term current use of insulin, unspecified CKD stage ([facility] V24, [facility] V28) ECG 12-LEAD Routine 01/17/2025 2:42 PM EDT Coronary artery disease involving [place] coronary artery of [place] heart without angina pectoris Calcification of aorta ([facility] V24) Primary hypertension Mixed hyperlipidemia BD BONE DENSITY DXA AXIAL SKELETON Routine 12/26/2024 2:40 PM EDT Osteoporosis, unspecified osteoporosis type, unspecified pathological fracture presence DRUG ABUSE SCREEN EXPANDED WITH REFLEX CONFIRMATION, [...] Recently Relevant to Health Maintenance Results * POC glucose manually resulted (04/09/2025 1:36 PM EST) Only the most recent of2 resultswithin the time period is included. Glucose POC 166 mg/dL Blood Capillary blood specimen / Unknown 04/09/2025 1:36 PM EST us Sarah ROTHMAN POINT OF CARE TEST ENTER/ED IT ORDERABLES Final Result * External clinical lab (04/03/2025) us Provider [facility] LAB BLOOD ORDERABLES Fin al Result * Lipid panel with reflex to direct LDL (03/14/2025 12:10 PM EST) Cholesterol 146 0 - 200 mg/dL 03/14/2025 4:40 PM EST [facility] Triglycerides 105 0 - 150 mg/dL 03/14/2025 4:40 PM EST [facility] HDL 55 >=40 mg/dL 03/14/2025 4:40 PM EST [facility] LDL Calculated 70 0 - 100 mg/dL 03/14/2025 4:40 PM EST [facility] Comment:Estimated LDL Calcul ated using equation: Total cholesterol - HDL cholesterol - (Triglycerides/5) VLDL Cholesterol Valdez 21 mg/dL 03/14/2025 4:40 PM EST [facility] Non HDL Chol. (LDL+VLDL) 91 <145 mg/dL 03/14/2025 4:40 PM EST [facility] Chol/HDL Ratio 2.7 0.0 - 4.4 03/14/2025 4:40 PM EST [facility] Blood Venous blood specimen / Unknown Venipuncture / Unknown 03/14/2025 12:10 PM EST 03/14/2025 12:10 PM EST Fernanda Robins MD LAB BLOOD ORDERABLES Final Res ult [facility] [address] [place] [address], * Alanine aminotransferase (03/14/2025 12:10 PM EST) ALT (SGPT) 26 10 - 60 unit/L 03/14/2025 4:39 PM EST [facility] Blood Venous blood specimen / Unknown Venipuncture / Unknown 03/14/2025 12:10 PM EST 03/14/2025 12:10 PM EST Fernanda Robins MD LAB BLOOD ORDERABLES Final Res ult Performing Organization Address [facility]/ZIP Co de Phone Number [facility] [address] [place] [address], [place] [phone] * Aspartate aminotransferase (03/14/2025 12:10 PM EST) [facility] AST (SGOT) 24 10 - 42 unit/L 03/14/2025 4:39 PM EST [facility] Blood Venous blood specimen / Unknown Venipuncture / Unknown 03/14/2025 12:10 PM EST 03/14/2025 12:10 PM EST us Fernanda Robins MD LAB BLOOD ORDERABLES Final Res ult Performing Organization Address [facility] Co de Phone Number [facility] [address] [place] [address], [place] [phone] * (ABNORMAL) Hemoglobin A1c (03/14/2025 12:10 PM EST) [facility] Hemoglobin A1C 8.9(H) <6.5 % LAB CHEMISTRY METHOD 03/14/2025 10:41 PM EST [facility] Mean Bld Glu Estim. 209 mg/dL LAB CHEMISTRY METHOD 03/14/2025 10:41 PM EST [facility] Blood Venous blood specimen / Unknown Venipuncture / Unknown 03/14/2025 12:10 PM EST 03/14/2025 12:10 PM EST us Sarah ROTHMAN LAB BLOOD ORDERABLES Final Result Performing Organization Address [facility]/ZIP Co de Phone Number [facility] [address] [place] [address], [place] [phone] * Trichomonas vaginalis antigen (03/07/2025 1:49 PM EST) Trichomonas vaginalis Negative Negative 03/07/2025 9:00 PM EST [facility] Swab Vaginal structure / Unknown Non-blood Collection / Unknown 03/07/2025 1:49 PM EST 03/07/2025 1:49 PM EST [facility] LAB MICROBIOLOGY - GENERAL OR DERABLES Final Result Performing Organization Address [facility] Co de Phone Number [facility] [address] [place] [address], * (ABNORMAL) Culture genital (03/07/2025 1:49 PM EST) Culture, Genital Shakira albicans/du bliniensis( A) 03/10/2025 11:09 AM EST [facility] Comment: The organism value for this result has been updated. These results have been appended to the previously preliminary verified report. Edited result: Previously reported as Yeast on 03/09/2025 at 1252 EST. Swab Vulval structure / Unknown Non-blood Collection / Unknown 03/07/2025 1:49 PM EST 03/07/2025 1:49 PM EST [facility] LAB MICROBIOLOGY - GENERAL OR DERABLES Final Result Performing Organization Address [facility] de Phone Number [facility] [address] [place] [address], [place] [phone] * (ABNORMAL) Wet prep, genital (03/07/2025 1:49 PM EST) Clue Cells, Wet Prep Negative Negative 03/07/2025 8:52 PM EST [facility] Yeast, Wet Prep Positive(A) Negative 03/07/2025 8:52 PM EST [facility] Trichomonas, Wet Prep Indeterminate Negative 03/07/2025 8:52 PM EST [facility] Comment:Refer to Trichomonas antigen. Swab Vaginal structure / Unknown Non-blood Collection / Unknown 03/07/2025 1:49 PM EST 03/07/2025 1:49 PM EST Lauren Rider CNM LAB MICROBIOLOGY - GENERAL OR DERABLES Final Result Performing Organization Address City/[facility]/ZIP Co de Phone Number [facility] [address] [place] [address], [place] [phone] * Vitamin D 25 hydroxy (02/04/2025 1:40 PM EDT) Pathologist [facility] Vit D, 25-Hydroxy 34.1 30.0 - 80.0 ng/mL LAB CHEMISTRY METHOD 02/04/2025 7:12 PM EDT [facility] Blood Venous blood specimen / Unknown Venipuncture / Unknown 02/04/2025 1:40 PM EDT 02/04/2025 1:40 PM EDT Sarah ROTHMAN LAB BLOOD ORDERABLES Final Result Performing Organization Address [facility]/ZIP Co de Phone Number [facility] [address] [place] [address], [place] [phone] * (ABNORMAL) Basic metabolic panel (02/04/2025 1:40 PM EDT) [facility] Sodium 142 133 - 145 mmol/L LAB CHEMISTRY METHOD 02/04/2025 6:40 PM EDT [facility] Potassium 4.4 3.5 - 5.5 mmol/L LAB CHEMISTRY METHOD 02/04/2025 6:40 PM EDT [facility] Chloride 112(H) 96 - 110 mmol/L LAB CHEMISTRY METHOD 02/04/2025 6:40 PM EDT [facility] CO2 22 21 - 32 mmol/L LAB CHEMISTRY METHOD 02/04/2025 6:40 PM EDT [facility] Anion Gap 8 3 - 11 LAB CHEMISTRY METHOD 02/04/2025 6:40 PM EDT [facility] Glucose 96 70 - 100 mg/dL LAB CHEMISTRY METHOD 02/04/2025 6:40 PM EDT [facility] BUN 26(H) 5 - 25 mg/dL LAB CHEMISTRY METHOD 02/04/2025 6:40 PM EDT [facility] Creatinine 1.15(H) 0.50 - 1.10 mg/dL LAB CHEMISTRY METHOD 02/04/2025 6:40 PM EDT [facility] eGFR 49(L) >=60 mL/min/1. 73m2 LAB CHEMISTRY METHOD 02/04/2025 6:40 PM EDT [facility] Comment:Calculation based on the Chronic Kidney Disease Epidemiology Collaboration (CKD-EPI) equation refit without adjustment for race. BUN/Creatinine Ratio 22.6 LAB CHEMISTRY METHOD 02/04/2025 6:40 PM EDT [facility] Calcium 9.0 8.5 - 10.5 mg/dL LAB CHEMISTRY METHOD 02/04/2025 6:40 PM EDT [facility] Blood Venous blood specimen / Unknown Venipuncture / Unknown 02/04/2025 1:40 PM EDT 02/04/2025 1:40 PM EDT us Sarah ROTHMAN LAB BLOOD ORDERABLES Final Result [facility] [address] [place] [address], * ECG 12 lead (01/17/2025 2:42 PM EDT) Ventricular Rate ECG 70 BPM GEMUSE Atrial Rate 70 BPM GEMUSE P-R Interval 146 ms GEMUSE QRS Duration 118 ms GEMUSE Q-T Interval 410 ms GEMUSE QTc 442 ms GEMUSE P Wave [place] 65 degrees GEMUSE R [place] 80 degrees GEMUSE T [place] 36 degrees GEMUSE ECG Interpretation Normal sinus rhythm Right bundle branch block Abnormal ECG When compared with ECG of 23-JUL-2024 13:45, No significant change was found Confirmed by VERA PENDLETON ([id number]) on 01/17/2025 3:29:28 PM GEMUSE 01/17/2025 2:17 PM EDT 01/17/2025 3:29 PM EDT us Shobha Lam VISUAL MERCHANDISING MANAGER ECG ORDERABLES Edited Resul t - Final MARCUS * BD Bone Density DXA Axial Skeleton (12/26/2024 2:40 PM EDT) Anatomical Region Laterality Modality Wrist, Hip, L-spine Bone Densito metry 12/27/2024 8:02 AM EDT Impressions 12/27/2024 8:03 AM EDT 1. Osteoporosis. 2. FRAX analysis yields a 10-year probability of major osteoporotic fracture of 8.3% and a 10-year probability of hip fracture of 2.1%. Code 40982 -------- FINAL REPORT -------- Dictated By: Shawn Gutierrez Dictated Date: 12/27/2024 08:02 ET Assigned Physician: Shawn Gutierrez Reviewed and Electronically Signed By: Shawn Gutierrez Signed Date: 12/27/2024 08:03 ET Workstation ID: [id number] Transcribed By: Self Edit Transcribed Date: 12/27/2024 [...] is diagnostic of osteoporosis. Procedure Note Shawn uGtierrez MD - 12/27/2024 HISTORY: The patient is [...] density of the femurs bilaterally is 0.904 gm/pu3iakdb is 90% of that of young normals [...] probability of hip fracture of 2.1%. Code 81546 -------- FINAL REPORT -------- Dictated By: Shawn Gutierrez Dictated Date: 12/27/2024 08:02 ET Assigned Physician: Shawn Gutierrez Reviewed and Electronically Signed By: Shawn Gutierrez Signed Date: 12/27/2024 08:03 ET Workstation ID: [id number] Transcribed By: Self Edit Transcribed Date: 12/27/2024 08:02 ET us Sarah ROTHMAN [facility] DXA PROCEDURES Final Re sult * Drug abuse screen expanded with reflex confirmation, urine (10/11/2024 1:46 PM EDT) [facility] Signature Amphetamine Screen, Ur Negative Negative LAB CHEMISTRY METHOD 10/11/2024 5:02 PM EDT [facility] Comment:Certain OTC medicati ons containing ephedrine, phenylephrine, pseudoephedrine and phenylpropanolamine can cause false positive results. Barbiturate Screen, Ur Negative Negative LAB CHEMISTRY METHOD 10/11/2024 5:02 PM EDT [facility] Benzodiazepine Screen, Ur Negative Negative LAB CHEMISTRY METHOD 10/11/2024 5:02 PM EDT [facility] Cocaine Screen, Ur Negative Negative LAB CHEMISTRY METHOD 10/11/2024 5:02 PM [facility] Opiate Screen, Ur Negative Negative LAB CHEMISTRY METHOD 10/11/2024 5:02 PM [facility] Cannabinoid (THC) Screen, Ur Negative Negative LAB CHEMISTRY METHOD 10/11/2024 5:02 PM [facility] Comment:Specimens from patie nts taking pantoprazole sodium (Protonix) have been shown to produce false positive results. Fentanyl, Ur Negative Negative LAB CHEMISTRY METHOD 10/11/2024 5:02 PM [facility] Oxycodone Screen, Ur Negative Negative LAB CHEMISTRY METHOD 10/11/2024 5:02 PM [facility] Urine Urine specimen obtained by clean catch procedure / Unknown Non-blood Collection / Unknown 10/11/2024 1:46 PM EDT 10/11/2024 1:46 PM EDT [facility] - 10/11/2024 5:02 PM EDT Assay cutoffs: Amphetamines 1000 ng/mL Barbiturates 200 ng/mL Benzodiazepines 200 ng/mL Cocaine 300 ng/mL Fentanyl 1 ng/mL Opiates 300 ng/mL Oxycodone 100 ng/mL THC 50 ng/mL Semi-quantitative assay for screening purposes only. Unconfirmed screening result should not be used for non-medical purposes. *POSITIVE RESULTS ARE AUTOMATICALLY SENT FOR ALTERNATE METHOD CONFIRMATION* us Deya Maxi Je VISUAL MERCHANDISING MANAGER LAB URINE ORDERABLES Final R esult [facility] [address] [place] [address], [place] [phone] * External Diabetic Retina Eye Exam Report (06/25/2024) Anatomical Region Laterality Modality Ultrasound Provider [facility] US PROCEDURES Final Result * COLONOSCOPY Anesthesia - MAC; [facility] ENDOSCOPY (02/26/2024 11:47 AM EST) Anatomical Region Laterality Modality Endoscopy 02/26/2024 11:1 8 AM EST Narrative 02/26/2024 11:47 AM EST [facility] GI Patient Name: Laura Kidd Procedure Date: 02/26/2024 11:18 AM Date of : 1945 Age: 79 Room: ROOM 16 Gender: Female Note Status: Finalized Attending MD: Shlomo Cast DO, [id number] Procedure Date No Time: 02/26/2024 Procedure: Colonoscopy [...] the physician, the nurse, the anesthesiologist, the night guard and the weatherization field technician in the pre-procedure area in the [...] pathology results. Procedure Code(s): --- Professional --- 29001, Colonoscopy, flexible; with removal of tumor(s), polyp(s), or other lesion(s) by snare technique Diagnosis Code(s): --- Professional --- K64.9, Unspecified hemorrhoids Z12.11, Encounter for screening for malignant neoplasm of colon D12.5, Benign neoplasm of sigmoid colon CPT copyright 2020 [employer]. All rights reserved. The codes documented in this report are preliminary and upon oracle application consultant review may be revised to meet current compliance requirements. SHLOMO CAST Shlomo Cast DO 02/26/2024 11:47:38 AM This report has been signed electronically.Shlomo Cast DO Number of Addenda: 0 Note Initiated On: 02/26/2024 11:18 AM Scope Withdrawal Time: 0 hours 7 minutes 15 seconds Scope In: 11:34:19 AM Scope Out: 11:45:11 AM Endoscopy Department at [facility] - [address] [place] [phone] Procedure Note Shlomo Cast DO - 02/26/2024 [facility] GI Patient Name: Laura Kidd Procedure Date: 02/26/2024 11:18 AM Date of : 1945 Age: 79 Room: ROOM 16 Gender: Female Note Status: Finalized Attending MD: Shlomo Cast DO,[id number] Procedure Date No Time: 02/26/2024 Procedure: Colonoscopy [...] the physician, the nurse, the anesthesiologist, the night guard and thetechnician in the pre-procedure area in [...] pathology results. Procedure Code(s): --- Professional --- 60817, Colonoscopy, flexible; with removal of tumor(s), polyp(s), or other lesion(s) by snare technique Diagnosis Code(s): --- Professional --- K64.9, Unspecified hemorrhoids Z12.11, Encounter for screening for malignantneoplasm of colon D12.5, Benign neoplasm of sigmoid colon CPT copyright 2020 [employer]. All rights reserved. The codes documented in this report are preliminary and upon oracle application consultant reviewmay be revised to meet current compliance requirements. SHLOMO CAST Shlomo Cast DO 02/26/2024 11:47:38 AM This report has been signed electronically.Shlomo Cast DO Number of Addenda: 0 Note Initiated On: 02/26/2024 11:18 AM Scope Withdrawal Time: 0 hours 7 minutes 15 seconds Scope In: 11:34:19 AM Scope Out: 11:45:11 AM Endoscopy Department at [address] [address] Result [facility] Shlomo Cast DO GI~PROCEDURE ORDERABLES Final Re sult * Diabetes Foot Exam (02/11/2022) [facility] Diabetes: Annual Foot Exam Abstracted Historical Provider HEALTH MAINTENANCE Final Result * Urine Albumin Creatinine Ratio (10/12/2021) [facility] Urine Albumin Creatinine Ratio Abstracted Historical Provider HEALTH MAINTENANCE Final Result * Hepatitis C Screening (12/18/2014) [facility] Hepatitis C Screening Abstracted Historical Provider HEALTH MAINTENANCE Final Result from Last 3 Months or Most Recently Relevant to Health Maintenance Insurance [employer] MEDICARE Member Subscriber Plan / Payer (Ef fective 2012-Present) Name:Laura Kidd Relation to Subscriber:Self Name:Laura Kidd Payer ID:[id number] Group ID:[id number] Type:Not on file Address: [place] [address] [address] [address] Care Teams Technical Training Specialist Relationship Specialty Start Date End Date Fernanda Robins MD [address] [facility] [place] [address] PCP - General Internal Medicine 08/22/24
--- OUTSIDE RECORDS SUMMARY | 2025-04-10 15:41 | XMS_ITS | Encounter Summary ---
Author Organization [facility] [place] [address] Care Team Providers Care Elevator Adjuster Name Role Phone Fernanda Robins MD Primary Care Provider [phone] Encounter Details Date Type Department Care Team ([facility] st Contact Info) Description 03/28/2025 Results Follow-Up Endocrinology - [place] [id number] [place] [phone] Sarah Cobian PA [address] [place] [address] Social History Tobacco Use Types Packs/Day Years Used Date Smoking Tobacco: Former Cigarettes 0 Q uit: 04/24/1989 Smokeless Tobacco: Never Alcohol [...] do you feel lonely or isolated from ose around you? Never 07/25/2024 Food Risk [...] care for your loved ones. For example, director child or elderly care for an older adult? [...] as of this encounter Plan of Treatment Upcoming Encounters Date Type Department Care Team (Late st Contact Info) Description 04/15/2025 10:30 AM EST Office Visit Internal Medicine - [address] [phone] Deya Henriquez, KIRAN [address] [place] [address] 05/07/2025 2:00 PM EST Consult [facility] [place] [facility] [place] [address] [facility] [address] [place] [phone] Kris Pack MD 175 [place] [address] 06/10/2025 1:15 PM EST Office Visit Obstetrics and Gynecology - [address] [phone] Cheryl Sanchez, SYLVESTER [address] [place] [phone] 07/08/2025 1:00 PM EDT Office Visit Endocrinology - [place] [address] [place] [address] Carolynn Rodriguez PA [address] [place] [address] 12/01/2025 12:00 PM EDT Ancillary Procedure [facility] - [facility] [address] [facility] [address] [place] [phone] 01/02/2026 10:30 AM EDT Office Visit Vascular Surgery - [place] [address] [place] [phone] Jarrett Chinchilla MD [address] [place] [address] documented as of this encounter Visit Diagnoses Not on filedocumented in this encounter Additional Health Concerns Assessment Noted Time PHQ-9 Depression Total Score: 1 07/26/19 2:23 PM EDT documented as of this encounter Care Teams Elevator Adjuster Relationship Specialty Start Date End Date Fernanda Robins MD [address] [place], [place] PCP - General Internal Medicine 08/22/24 documented as of this encounter
--- OUTSIDE RECORDS SUMMARY | 2025-04-10 15:41 | XMS_ITS | Clinical Summary ---
Author Organization [facility], Address [address] [place] [address] [place] [address] Phone Care Team Providers Care Coating Machine Operator Helper Name Role Phone Kira King MD Primary Care Provider [phone] Allergies Active Allergy Reactions Criticality Noted Date [...] every 4 (four) hours if needed Active [place]-3 1000 MG capsule Take by mouth Active [...] 3 Active Cholecalciferol (Vitamin D3) 1.25 MG (02465 UT) capsule Take 1 capsule by mouth [...] Tobacco: Former Cigarettes 0 Q uit: 04/24/1989 Alcohol Use Standard Drinks/Week [...] PM EDT) Hemoglobin A1C 6.9(H) (4.0-5.6) % [facility] Comment: MONITORING: In known diabetic patients, hemoglobin A1c targets should be discussed with health care provider. DIAGNOSTIC USE: The [place] [employer] (ADA) and the World Health [...] Supplement 1 Testing performed or reported by [facility], a Service of [facility], [address] [place] [address] Gail Forbes MD, Board Mixer Tender Blood specimen (specimen) Venous blood / Unknown 07/21/2020 2:21 PM EDT 07/21/2020 2:24 PM EDT us Sabra ROTHMAN LAB BLOOD ORDERABLES Final Res ult [facility] from Last 3 Months or Most Recently Relevant to Health Maintenance [place] [address] Dual SNP ([id number]) Care Teams Coating Machine Operator Helper Relationship Specialty Start Date End Date Kira King MD [address] [place] [address] PCP - General Internal Medicine 06/25/20
--- OUTSIDE RECORDS SUMMARY | 2025-04-10 15:41 | XMS_ITS | Encounter Summary ---
Author Organization [facility] [place] [address] Care Team Providers Care Vp Training Name Role Phone Fernanda Robins MD Primary Care Provider [phone] Encounter Details Date Type Department Care Team (Late st Contact Info) Description 04/03/2025 Results Follow-Up Internal Medicine - [place] [address] [facility] [phone] Florecita Longoria [place] Social History Tobacco Use Types Packs/Day [...] for your loved ones. For example, child caregiver private home or elderly care for an older adult? [...] AM EST Office Visit Internal Medicine - [facility] [address] [place] [address] Deya Henriquez, KIRAN [address] [place] [address] 05/07/2025 2:00 PM EST Consult [facility] [address] [place] [phone] Kris Pack MD 175 [place] [address] 06/10/2025 1:15 PM EST Office Visit Obstetrics and Gynecology - [address] [phone] Cheryl Sanchez CN [address] [place] [phone] 07/08/2025 1:00 PM EDT Office Visit Endocrinology - [place] [address] [place] [phone] Carolynn Rodriguez PA [address] [place] [address] 12/01/2025 12:00 PM EDT Ancillary Procedure [facility] - [facility] [address] [facility] 101 [place] [address] 01/02/2026 10:30 AM EDT Office Visit Vascular Surgery - [place] 300 [facility] 210 [place] [address] Jarrett Chinchilla MD [address] [place] [phone] documented as of this encounter Visit Diagnoses Not on filedocumented in this encounter Additional Health Concerns Assessment Noted Time PHQ-9 Depression Total Score: 1 07/26/19 2:23 PM EDT documented as of this encounter Care Teams Vp Training Relationship Specialty Start Date End Date Fernanda Robins MD [address] [place] [address] PCP - General Internal Medicine 08/22/24 documented as of this encounter
--- OUTSIDE RECORDS SUMMARY | 2025-04-10 15:41 | XMS_ITS | Encounter Summary ---
Author Organization [facility] [place] [address] Care Team Providers Care Waistline Joiner Lockstitch Name Role Phone Fernanda Robins MD Primary Care Provider [phone] Encounter Details Date Type Department Care Team (Late st Contact Info) Description 03/17/2025 [facility] [address] [place], [place] [phone] Fernanda Robins MD [address] [place], [place] Social History Tobacco Use Types Packs/Day [...] for your loved ones. For example, child welfare consultant or elderly care for an older adult? [...] AM EST Office Visit Internal Medicine - [address] [phone] Deya Henriquez, KIRAN [address] [place] [address] 05/07/2025 2:00 PM EST Consult [facility] [place] 175 [facility] [address] [place] [phone] Kris Pack MD 175 [place] [address] 06/10/2025 1:15 PM EST Office Visit Obstetrics and Gynecology - [address] [phone] Cheryl Sanchez CNM [address] [place] [phone] 07/08/2025 1:00 PM EDT Office Visit Endocrinology - [place] [address] [place] [address] Carolynn Rodriguez PA [address] [place] [address] 12/01/2025 12:00 PM EDT Ancillary Procedure [facility] - [facility] [address] [facility] 101 [place] [phone] 01/02/2026 10:30 AM EDT Office Visit Vascular Surgery - [place] 300 [facility] [address] [place] [phone] Jarrett Chinchilla MD [address] [place] [address] documented as of this encounter Visit Diagnoses Not on filedocumented in this encounter Additional Health Concerns Assessment Noted Time PHQ-9 Depression Total Score: 1 07/26/19 25 2:23 PM EDT documented as of this encounter Care Teams Waistline Joiner Lockstitch Relationship Specialty Start Date End Date Fernanda Robins MD [address] [place] [address] PCP - General Internal Medicine 08/22/24 documented as of this encounter
--- OUTSIDE RECORDS SUMMARY | 2025-04-10 15:41 | XMS_ITS | Continuity of Care Document ---
Author Name [facility], Medical Address [address] [place] [address] Organization Unknown Address [address] [place] [address] Medications No known medications Problems No known problems
--- OUTSIDE RECORDS SUMMARY | 2025-04-10 15:42 | XMS_ITS | Encounter Summary ---
Author Organization [facility] [address] Care Team Providers Care Auto Service Station Attendant Name Role Phone Fernanda Robins MD Primary Care Provider [phone] Encounter Details Date Type Department Care Team ([facility] Contact Info) Description 02/05/2025 Results Follow-Up Endocrinology - [place] [address] [place] [phone] Sarah Cobian PA [address] [place] [address] Social History Tobacco Use Types Packs/Day Years [...] for your loved ones. For example, child support investigator or elderly care for an older adult? [...] AM EST Office Visit Internal Medicine - [address] [address] Deya Henriquez, KIRAN [address] [place] [address] 05/07/2025 2:00 PM EST Consult [facility] [place] [facility] [place] [address] [facility] [address] [place] [phone] Kris Pack MD [address] [place] [address] 06/10/2025 1:15 PM EST Office Visit Obstetrics and Gynecology - [address] [phone] Cheryl Sanchez, SYLVESTER [address] [place] [phone] 07/08/2025 1:00 PM EDT Office Visit Endocrinology - [place] [address] [place] [address] Carolynn Rodriguez PA [address] [place] [address] 12/01/2025 12:00 PM EDT Ancillary Procedure [facility] - [facility] [address] [facility] [address] [place] [phone] 01/02/2026 10:30 AM EDT Office Visit Vascular Surgery - [place] [address] [place] [phone] Jarrett Chinchilla MD [address] [place] [address] documented as of this encounter Visit Diagnoses Not on filedocumented in this encounter Additional Health Concerns Assessment Noted Time PHQ-9 Depression Total Score: 1 07/26/19 2:23 PM EDT documented as of this encounter Care Teams Auto Service Station Attendant Relationship Specialty Start Date End Date Fernanda Robins MD [address] [place], [place] PCP - General Internal Medicine 08/22/24 documented as of this encounter
== END 2025-04-10 12:39 | disposition home or self-care (01) ==
LOC: HO.HKAS 11:50
PROVIDERS: PCP Internal Medicine; Visit Provider Internal Medicine Nephrology
DX: N18.31 Chronic kidney disease, stage 3a (principal); I15.0 Renovascular hypertension
CPT/HCPCS: 99214

== ENCOUNTER → 2025-04-10 11:49 | Outpatient (BNVA) | payer OTHER, SELFPAY | PROVIDERS: PCP Internal Medicine; Visit Provider Internal Medicine Nephrology | DX: I15.0 Renovascular hypertension (principal); N18.31 Chronic kidney disease, stage 3a; E11.22 Type 2 diabetes mellitus with diabetic chronic kidney disease; I77.9 Disorder of arteries and arterioles, unspecified; Z87.891 Personal history of nicotine dependence; Z79.84 Long term (current) use of oral hypoglycemic drugs; Z79.899 Other long term (current) drug therapy | CPT/HCPCS: 99212 ==